=== PATIENT | female | born 1960 | race Caucasian/White ===

== ENCOUNTER 2016-05-08 13:24 | Emergency (ER) | payer OTHER ==
[~2016-05-08] VITALS: Ht 154.9 cm; Wt 79.7 kg
[~2016-05-08 13:24] MED LIST: BSP/10 PO; CETI10TA10 PO; CLTP PO; FERR1TAB61 PO; FLUO20CA35 PO; HYDR1CAP85 PO; MULT-506 PO; OMEP40CA41 PO; OXYC-609 PO; POTA10CA28 PO; TRAZ50TA35 PO
[2016-05-08 13:28] VITALS: TEMP 37; Ht 154.9 cm; Wt 79.7 kg
[2016-05-08] MEDS ORDERED: ASPIRIN 81 MG CHEW PO STA (13:42)
[2016-05-08] MEDS ORDERED: NITROGLYCERIN 0.4 MG SL PER TAB CHARGE SL STA (13:42)
[2016-05-08 13:59] VITALS: O2SAT 95
[2016-05-08 14:10] LABS: BASO % 0.2 %; BASO ABS # 0.01 K/uL (0-0.2); COMPLETE YES; HEMATOCRIT 38.4 % (37-47); IG% 0.2 %; LYMPH % 38.2 %; LYMPH ABS # 2.14 K/uL (1.2-3.4); MEAN CELL VOLUME 93.2 fL (80-100); MEAN CORPUSCULAR HEMOGLOBIN 31.3 pg (25-34); MEAN CORPUSCULAR HGB CONC 33.6 g/dl (32-36); MEAN PLATELET VOLUME 9.4 fL (7.4-10.4); MONO % 6.8 %; NEUT % 51.6 %; PLATELET COUNT 244 K/uL (130-400); RED BLOOD COUNT 4.12 M/uL (4.2-5.4)
[2016-05-08 14:23] LABS: INR 0.9 (0.9-1.1); PROTHROMBIN TIME (PATIENT) 10.1 SECONDS (9.0-12.0)
[2016-05-08 14:30] LABS: ALT/SGPT 18 U/L (12-78); AST/SGOT 22 U/L (15-37); BLOOD UREA NITROGEN 9 mg/dl (7-18); BUN/CREATININE RATIO 7.2 (10-20); CALCIUM 8.4 mg/dl (8.5-10.1); CARBON DIOXIDE 24 mmol/L (21-32); CHLORIDE 107 mmol/L (98-107); GLUCOSE 79 mg/dl (70-99); SODIUM 141 mmol/L (136-145)
--- NOTE | 2016-05-08 14:30 | DIAGNOSTIC IMAGING REPORT ---
SINGLE VIEW CHEST CLINICAL HISTORY: Fever. Sepsis. FINDINGS: An AP, portable, upright chest radiograph is compared to study dated 08/15/2011. The examination is degraded by portable technique and patient rotation. The cardiomediastinal silhouette is unremarkable. The lungs and pleural spaces are clear. No pneumothorax is seen. The skeletal structures are osteopenic. The bony thorax is grossly intact. IMPRESSION: No active disease in the chest. Electronically signed by: Eduardo Cary M.D. 05/08/2016 2:29 PM Dictated Date/Time: 05/08/2016 2:28 PM
[2016-05-08 14:41] LABS: ALKALINE PHOSPHATASE 67 U/L (45-117); CKMB/CK RATIO 1.2 (0-3.0)
[2016-05-08] MEDS ORDERED: TRAZ1TAB52 PO (14:43)
[2016-05-08] MEDS ORDERED: CALC-354 PO (14:43)
[2016-05-08] MEDS ORDERED: CYAN10005 PO (14:43)
[2016-05-08] MEDS ORDERED: GABA-113 PO (14:43)
[2016-05-08] MEDS ORDERED: DVN/160 PO (14:43)
[2016-05-08] MEDS ORDERED: FERR28TA2 PO (14:43)
--- NOTE | 2016-05-08 14:55 | EMERGENCY ROOM VISIT NOTE ---
History Report prepared by aVsu: Fartun Mcbride Under the Supervision of: Dr. David Simons D.O. First contact with patient: 13:38 Chief Complaint: CHEST PAIN Stated Complaint: CHEST PAIN History of Present Illness The patient is a 56 year old female who presents to the Emergency Room with complaints of intermittent chest pains for the past couple of weeks. Typically her pain lasts for about 15 minutes and then resolves. She states that today her pain started while she was folding laundry. For the past 2 hours her pain has been constant and worse than ever before. She describes her pain as a pressure in her chest and rates it as a 4/10 in severity. It does not radiate anywhere. The patient is also experiencing dizziness and lightheadedness. She has anxiety and states that lately her anxiety has been worse than normal. The patient denies abdominal pain, fever, chills, cough, and any recent illness. She also denies any previous cardiac issues. Source of History: patient Onset: a couple of weeks ago Position: chest Symptom Intensity: 4/10 Quality: pressure Timing: worsening Modifying Factors (Worsening): exertion (folding laundry) Associated Symptoms: No abdominal pain, No chills, No fevers Note: Pt reports dizziness and lightheadedness. She has been feeling more anxious lately. Denies recent illness or previous cardiac issues. Review of Systems See HPI for pertinent positives & negatives. A total of 10 systems reviewed and were otherwise negative. Past Medical & Surgical Medical Problems: (1) Asthma Surgical Problems: (1) H/O breast surgery (2) H/O gastric bypass (3) H/O: hysterectomy (4) Previous back surgery Family History Cancer Diabetes mellitus FH: migraine headache Heart disease Hypertension Social History Smoking Status: Former Smoker Alcohol Use: occasionally Drug Use: none Marital Status: in relationship Housing Status: lives with family Occupation Status: employed Current/Historical Medications Scheduled Buspirone HCl (Buspirone HCl), 10 MG PO BID Calcium Carbonate-Cholecalcife (Caltrate 600+D), 1 TAB PO DAILY Cyanocobalamin (Vitamin B-12), 1,500 MCG PO DAILY Ferrous Sulfate (Iron), 28 MG PO DAILY Fluoxetine (Prozac), 20 MG PO BID Gabapentin (Neurontin), 300 MG PO TID Multivitamin (Multivitamin), 1 TAB PO DAILY Omeprazole (Prilosec), 40 MCG PO DAILY Potassium Chloride (Micro-K Ext Rel), 10 MEQ PO DAILY Trazodone Hcl (Desyrel), 150 MG PO HS Valsartan (Diovan), 160 MG PO DAILY Scheduled PRN Hydroxyzine Pamoate (Vistaril), 25 MG PO DAILY PRN for Anxiety Oxycodone HCl (Oxycodone HCl), 5 MG PO UD PRN for Pain Allergies Coded Allergies: Penicillins (Verified Allergy, Unknown, HAS HAD KEFLEX W/O PROBLEM, 05/08/16 ) Sulfa Drugs (Verified Allergy, Unknown, 05/08/16) Uncoded Nonscreenable Allergen (Unverified Allergy, Unknown, DERMABOND- RASH, 05/08/16) Physical Exam Vital Signs Date Time Temp Pulse Resp B/P Pulse Ox O2 Delivery O2 Flow Rate FiO2 05/08/16 15:17 74 18 126/95 98 05/08/16 14:18 81 118/91 92 Room Air 05/08/16 14:05 94 05/08/16 14:01 97 Room Air 05/08/16 13:59 95 Room Air 05/08/16 13:28 37.0 81 18 146/88 96 Room Air Physical Exam CONSTITUTIONAL/VITAL SIGNS: Reviewed / noted above. GENERAL: Non-toxic in appearance. INTEGUMENTARY: Warm, dry, and [place]. HEAD: Normocephalic. EYES: without scleral icterus or trauma. ENT/OROPHARYNX: clear and moist. LYMPHADENOPATHY/NECK: Is supple without lymphadenopathy or meningismus. RESPIRATORY: Lungs clear and equal. CARDIOVASCULAR: Regular rate and rhythm. GI/ABDOMEN: Soft and nontender. No organomegaly or pulsatile mass. No rebound or guarding. Normal bowel sounds. EXTREMITIES: Warm and well perfused. BACK: No CVA tenderness. NEUROLOGICAL: Intact without focal deficits. PSYCHIATRIC: normal affect. MUSCULOSKELETAL: Normally developed with good muscle tone. Medical Decision & Procedures ER Provider Diagnostic Interpretation: Radiology results as stated below per my review and radiologist interpretation: SINGLE VIEW CHEST CLINICAL HISTORY: Fever. Sepsis. FINDINGS: An AP, portable, upright chest radiograph is compared to study dated 08/15/2011. The examination is degraded by portable technique and patient rotation. The cardiomediastinal silhouette is unremarkable. The lungs and pleural spaces are clear. No pneumothorax is seen. The skeletal structures are osteopenic. The bony thorax is grossly intact. IMPRESSION: No active disease in the chest. Electronically signed by: Eduardo Cary M.D. 05/08/2016 2:29 PM Dictated Date/Time: 05/08/2016 2:28 PM Laboratory Results 05/08/16 13:49 Red Blood Count 4.12, Mean Corpuscular Volume 93.2, Mean Corpuscular Hemoglobin 31.3, Mean Corpuscular Hemoglobin Concent 33.6, Mean Platelet Volume 9.4, Neutrophils (%) (Auto) 51.6, Lymphocytes (%) (Auto) 38.2, Monocytes (%) (Auto) 6.8, Eosinophils (%) (Auto) 3.0, Basophils (%) (Auto) 0.2, Neutrophils # (Auto) 2.89, Lymphocytes # (Auto) 2.14, Monocytes # (Auto) 0.38, Eosinophils # (Auto) 0.17, Basophils # (Auto) 0.01 05/08/16 13:49 Test 05/08/16 13:49 White Blood Count 5.60 K/uL (4.8-10.8) Red Blood Count 4.12 M/uL (4.2-5.4) Hemoglobin 12.9 g/dL (12.0-16.0) Hematocrit 38.4 % (37-47) Mean Corpuscular Volume 93.2 fL (80-100) Mean Corpuscular Hemoglobin 31.3 pg (25-34) Mean Corpuscular Hemoglobin Concent 33.6 g/dl (32-36) Platelet Count 244 K/uL (130-400) Mean Platelet Volume 9.4 fL (7.4-10.4) Neutrophils (%) (Auto) 51.6 % Lymphocytes (%) (Auto) 38.2 % Monocytes (%) (Auto) 6.8 % Eosinophils (%) (Auto) 3.0 % Basophils (%) (Auto) 0.2 % Neutrophils # (Auto) 2.89 K/uL (1.4-6.5) Lymphocytes # (Auto) 2.14 K/uL (1.2-3.4) Monocytes # (Auto) 0.38 K/uL (0.11-0.59) Eosinophils # (Auto) 0.17 K/uL (0-0.5) Basophils # (Auto) 0.01 K/uL (0-0.2) RDW Standard Deviation 48.8 fL (36.4-46.3) RDW Coefficient of Variation 14.4 % (11.5-14.5) Immature Granulocyte % (Auto) 0.2 % Immature Granulocyte # (Auto) 0.01 K/uL (0.00-0.02) Prothrombin Time 10.1 SECONDS (9.0-12.0) Prothromb Time International Ratio 0.9 (0.9-1.1) Activated Partial Thromboplast Time 26.8 SECONDS (21.0-31.0) Partial Thromboplastin Ratio 1.0 Anion Gap 10.0 mmol/L (3-11) Est Creatinine Clear Calc Drug Dose 50.6 ml/min Estimated GFR () 58.9 Estimated GFR (Non- 50.8 BUN/Creatinine Ratio 7.2 (10-20) Calcium Level 8.4 mg/dl (8.5-10.1) Total Bilirubin 0.3 mg/dl (0.2-1) Direct Bilirubin < 0.1 mg/dl (0-0.2) Aspartate Amino Transf (AST/SGOT) 22 U/L (15-37) Alanine Aminotransferase (ALT/SGPT) 18 U/L (12-78) Alkaline Phosphatase 67 U/L (45-117) Total Creatine Kinase 89 U/L (26-192) Creatine Kinase MB 1.1 ng/ml (0.5-3.6) Creatine Kinase MB Ratio 1.2 (0-3.0) Troponin I < 0.015 ng/ml (0-0.045) Total Protein 7.2 gm/dl (6.4-8.2) Albumin 3.6 gm/dl (3.4-5.0) Lipase 318 U/L (73-393) Thyroid Stimulating Hormone (TSH) 1.420 uIu/ml (0.300-4.500) Laboratory results as stated above per my review. Medications Administered Medications (Trade) Dose Ordered Sig/Blaze Route Start Time Stop Time Status Last Admin Dose Admin Aspirin (Aspirin Chew) 324 mg NOW STAT PO 05/08/16 13:42 05/08/16 13:43 DC 05/08/16 13:59 324 MG Nitroglycerin (Nitrostat Tab) 0.4 mg 1342 STAT SL 05/08/16 13:42 05/08/16 13:43 DC 05/08/16 14:00 0.4 MG ECG Indication: chest pain Rate (beats per minute): 78 Rhythm: normal sinus Findings: no acute ischemic change, no ectopy ED Course 1339: Previous medical records were reviewed. The patient was evaluated in room A9B. A complete history and physical examination was performed. 1342: Nitroglycerin 0.4 mg SL, Aspirin 324 mg PO 1457: I reassessed the patient at this time. She is feeling better and resting comfortably. I discussed the results and treatment plan with the patient. I answered all pertaining questions that she had. She expressed understanding and verbalized agreement. The patient will be discharged home. Medical Decision The differential was considered includes acute myocardial infarction, acute coronary syndrome, myocarditis, pericarditis, pericardial effusions /tamponade, esophageal perforation, thoracic aortic dissection, pulmonary embolism, pneumonia, pneumothorax, pancreatitis, shingles, acute cholecystitis, perforated abdominal viscus. This is a 56-year-old female who presents to the ED with a chief complaint of chest pain off and on for the past couple of weeks. She also reports some associated lightheadedness. She describes the pain in her chest as a tightness. It does not radiate. She denies associated shortness of breath, fevers or recent illness. No exertional symptoms. The patient does report some increase in her baseline anxiety recently as well. Her vital signs are normal. An EKG shows a normal sinus rhythm at a rate of 78 without ischemic changes. Her physical exam was normal. CBC and complete metabolic panel were normal. Troponin is negative. TSH is normal. Chest x-ray was negative for acute disease. The patient was told results the test per she was treated with a nitroglycerin sublingual which worsened her pain. She was given aspirin by mouth as well. The patient has hypertension and is on medication for this. She denies any early family history of heart disease. She has not had any cardiac issues herself. She does not have high cholesterol. She is not a smoker. She has had the symptoms for at least 3-4 hours today. There were no EKG changes and her troponin is negative. She does report anxiety. I feel her symptoms are more likely related to this rather than a cardiac or pulmonary etiology for her pain. The patient was felt to be stable for discharge and outpatient follow-up. She did state on final evaluation that her pain was now gone. Impression Primary Impression: Substernal precordial chest pain Scribe Attestation The scribe's documentation has been prepared under my direction and personally reviewed by me in its entirety. I confirm that the note above accurately reflects all work, treatment, procedures, and medical decision making performed by me. Departure Information Dispostion Home / Self-Care Referrals Tj Campo III, M.D. (PCP) Forms HOME CARE DOCUMENTATION FORM, IMPORTANT VISIT INFORMATION Patient Instructions Chest Pain - [facility], [facility] Additional Instructions Follow-up with your doctor for further care and evaluation in 1-2 days. Return to the emergency department for worsening or new symptoms or any concerns. You have been examined and treated today on an emergency basis only. This is not a substitute for, or an effort to provide, complete comprehensive medical care. It is impossible to recognize and treat all injuries or illnesses in a single emergency department visit. It is therefore important that you follow up closely with your doctor. Call as soon as possible for an appointment.
[2016-05-08 15:17] VITALS: BP 126/95; PULSE 74; O2SAT 98
[2016-11-14] MEDS ORDERED: VALS40TA2 PO (15:41)
[2016-11-14] MEDS ORDERED: LPT40 PO (15:41)
[2016-11-14] MEDS ORDERED: ASPEC81 PO (15:41)
== END 2016-05-08 15:18 | disposition home or self-care (01) ==
LOC: C.EDB 13:25 → C.EDA 15:18
DX: R07.2 Precordial pain (principal); J45.909 Unspecified asthma, uncomplicated; Z83.3 Family history of diabetes mellitus; Z82.49 Family history of ischemic heart disease and other diseases of the circulatory system

== ENCOUNTER 2016-06-03 21:39 | Emergency (ER) | payer OTHER ==
[~2016-06-03] VITALS: Ht 154.9 cm; Wt 80.5 kg
[~2016-06-03 21:39] MED LIST changes: +CALC-354 PO; -CETI10TA10 PO; -CLTP PO; +CYAN10005 PO; +DVN/160 PO; -FERR1TAB61 PO; +FERR28TA2 PO; +GABA-113 PO; +TRAZ1TAB52 PO; -TRAZ50TA35 PO
[2016-06-03 21:43] VITALS: TEMP 36.6; Ht 154.9 cm; Wt 80.5 kg
[2016-06-03] MEDS ORDERED: MoRPHine SULFATE 4 MG/ML 1 ML CARP\\VIAL IM STA (22:04)
[2016-06-03] MEDS ORDERED: KETOROLAC TROMETHAMINE 60 MG/2 ML VIAL IM STA (22:04)
--- NOTE | 2016-06-03 22:25 | EMERGENCY ROOM VISIT NOTE ---
ED Visit Note First contact with patient: 21:50 I have personally seen and evaluated the patient with the physician regional administrative assistant. I agree with the diagnostic/management decisions and have personally been involved in these decisions and agree with the diagnosis.
--- NOTE | 2016-06-03 22:43 | DIAGNOSTIC IMAGING REPORT ---
THORACIC SPINE 3 VIEWS ROUTINE CLINICAL HISTORY: mid back pain COMPARISON STUDY: No previous studies for comparison. FINDINGS: There is an air-filled esophagus. The paraspinal line is not displaced. There are no acute fractures. No destructive lesions are evident. There are mild multilevel degenerative changes. IMPRESSION: 1. No acute fractures 2. Mild multilevel degenerative change 3. Air-filled esophagus Electronically signed by: Bart Cervantes M.D. 06/03/2016 10:42 PM Dictated Date/Time: 06/03/2016 10:41 PM
--- NOTE | 2016-06-03 23:02 | EMERGENCY ROOM VISIT NOTE ---
ED Visit Note First contact with patient: 21:50 CHIEF COMPLAINT: Back pain HISTORY OF PRESENT ILLNESS: This 56-year-old female patient presents to the emergency department ambulatory complaining of pain in the mid back. The patient states that after she had cleaned out her car today, she developed a pain in the middle of her back. She states the pain has been progressively worsening and is worse with movement. There is no radiation of the pain. She denies any numbness or weakness in her upper or lower extremities. She rates the discomfort a 9/10. She took oxycodone at home without relief of the pain. The patient does state she has a history of low back problems and has had surgery at [facility] in [place]. She also reports recent problems with arthritis in her neck. She denies any chest pain, shortness of breath, abdominal pain, nausea or vomiting. REVIEW OF SYSTEMS: A review of systems was performed with positives and pertinent negatives listed in the history of present illness. All other systems were reviewed and are negative. ALLERGIES: Penicillins, sulfa drugs, Dermabond MEDICATIONS: See med list PMH: Hypertension, gastric bypass, hysterectomy, fibromyalgia SOCIAL HISTORY: Patient lives locally with her . She is a smoker and admits to occasional alcohol use. PHYSICAL EXAM: VITALS: Vitals are noted on the nurse's note and reviewed by myself. Vital signs stable. GENERAL: This is a 56-year-old female, in no acute distress, nondiaphoretic, well-developed well-nourished. SKIN: The skin was without rashes, erythema, edema, or bruising. Capillary refill less than 2 seconds. NECK: Supple without nuchal rigidity. No cervical spine tenderness. No paraspinous muscle tenderness. HEART: Regular rate and rhythm without murmurs gallops or rubs. LUNGS: Clear to auscultation bilaterally without wheezes, rales or rhonchi. ABDOMEN: Positive bowel sounds x 4. Soft, nontender, without masses or organomegaly. Hendricks sign negative. MUSCULOSKELETAL: No muscle atrophy, erythema, or edema noted of the back. There is tenderness to palpation over bilateral thoracic paraspinous muscles. No tenderness over the spinous processes. NEURO: Patient was alert and oriented to person place and time. Normal sensation to light and sharp touch. Deep tendon reflexes 2+ in the upper extremities. Radial pulse 2+ bilaterally. Strength 5/5 and equal in the bilateral upper extremities. RADIOGRAPHIC FINDINGS: THORACIC SPINE 3 VIEWS ROUTINE CLINICAL HISTORY: mid back pain COMPARISON STUDY: No previous studies for comparison. FINDINGS: There is an air-filled esophagus. The paraspinal line is not displaced. There are no acute fractures. No destructive lesions are evident. There are mild multilevel degenerative changes. IMPRESSION: 1. No acute fractures 2. Mild multilevel degenerative change 3. Air-filled esophagus EMERGENCY DEPARTMENT COURSE: The patient was evaluated as above. She was treated with 60 mg Toradol IM and 4 mg morphine IM. X-rays were performed and show degenerative changes but no acute findings. The patient was instructed to follow-up with her primary care provider tomorrow for further evaluation of his back pain. She will return for any new/concerning symptoms. She verbalized understanding of my assessment and treatment plan and was discharged home in good condition. The patient was independently evaluated by Dr. Simons, ED attending physician, who agreed with my assessment and treatment plan. DIAGNOSIS: Thoracic back pain Problem List Medical Problems: (1) Asthma Status: Chronic Surgical Problems: (1) H/O breast surgery Status: Resolved (2) H/O gastric bypass Status: Resolved (3) H/O: hysterectomy Status: Resolved (4) Previous back surgery Status: Resolved Current/Historical Medications Scheduled Buspirone HCl (Buspirone HCl), 10 MG PO BID Calcium Carbonate-Cholecalcife (Caltrate 600+D), 1 TAB PO DAILY Cyanocobalamin (Vitamin B-12), 1,500 MCG PO DAILY Ferrous Sulfate (Iron), 28 MG PO DAILY Fluoxetine (Prozac), 20 MG PO BID Gabapentin (Neurontin), 300 MG PO TID Multivitamin (Multivitamin), 1 TAB PO DAILY Omeprazole (Prilosec), 40 MCG PO DAILY Potassium Chloride (Micro-K Ext Rel), 10 MEQ PO DAILY Trazodone Hcl (Desyrel), 150 MG PO HS Valsartan (Diovan), 160 MG PO DAILY Scheduled PRN Hydroxyzine Pamoate (Vistaril), 25 MG PO DAILY PRN for Anxiety Oxycodone HCl (Oxycodone HCl), 5 MG PO UD PRN for Pain Allergies Coded Allergies: Penicillins (Verified Allergy, Unknown, HAS HAD KEFLEX W/O PROBLEM, 06/03/16 ) Sulfa Drugs (Verified Allergy, Unknown, 06/03/16) Uncoded Nonscreenable Allergen (Unverified Allergy, Unknown, DERMABOND- RASH, 06/03/16) Vital Signs Date Time Temp Pulse Resp B/P Pulse Ox O2 Delivery O2 Flow Rate FiO2 06/03/16 23:06 82 18 123/77 93 Room Air 06/03/16 21:43 36.6 96 20 99/74 95 Room Air Medications Administered Medications (Trade) Dose Ordered Sig/Blaze Route Start Time Stop Time Status Last Admin Dose Admin Ketorolac Tromethamine (Toradol Inj) 60 mg NOW STAT IM 06/03/16 22:04 06/03/16 22:07 DC 06/03/16 22:11 60 MG Morphine Sulfate (MoRPHine SULFATE INJ) 4 mg NOW STAT IM 06/03/16 22:04 06/03/16 22:07 DC 06/03/16 22:12 4 MG Departure Information Dispostion Home / Self-Care Condition GOOD Referrals Tj Campo III, M.D. (PCP) Patient Instructions My [facility] Additional Instructions For pain control, you can use the following [id number] medicines (if >12 yo): - Regular strength (325mg/tab) Tylenol (acetaminophen) 2 tabs every 4-6 hours as needed. Do not exceed 12 tablets in a 24 hour period. Avoid taking more than 4 grams (4000 mg) of Tylenol per day. This includes any other sources of acetaminophen you may take on a regular basis. - Regular strength (200 mg/tab) Advil (ibuprofen) 1-2 tabs every 4-6 hours as needed. Do not exceed a dose of 3200 mg per day. Continue oxycodone at home as needed for pain. Call Dr. Campo tomorrow to schedule follow-up. Return for any new/concerning symptoms.
[2016-06-03 23:06] VITALS: BP 123/77; PULSE 82; O2SAT 93
[2016-11-14] MEDS ORDERED: LPT40 PO (15:41)
[2016-11-14] MEDS ORDERED: VALS40TA2 PO (15:41)
[2016-11-14] MEDS ORDERED: ASPEC81 PO (15:41)
== END 2016-06-03 23:07 | disposition home or self-care (01) ==
LOC: C.EDB 21:40 → C.EDD 23:07
DX: M54.6 Pain in thoracic spine (principal); I10 Essential (primary) hypertension; J45.909 Unspecified asthma, uncomplicated; F17.200 Nicotine dependence, unspecified, uncomplicated; Z98.84 Bariatric surgery status; Z90.710 Acquired absence of both cervix and uterus; Z79.899 Other long term (current) drug therapy; Z88.0 Allergy status to penicillin; Z88.2 Allergy status to sulfonamides; Z91.09 Other allergy status, other than to drugs and biological substances

== ENCOUNTER → 2016-07-17 | Outpatient (CLI) | payer OTHER ==
[~2016-07-17] MED LIST changes: +ASPEC81 PO; +LPT40 PO; +VALS40TA2 PO
--- NOTE | 2016-07-17 12:14 | DIAGNOSTIC IMAGING REPORT ---
VIDEO SWALLOW STUDY CLINICAL HISTORY: Dysphagia. COMPARISON STUDY: No priors. Fluoroscopy time: 1.7 minutes. FINDINGS: Fluoroscopic guidance was provided to the Department of Speech Pathology in performing a video swallow study. The patient consumed barium-impregnated pudding, nectar-thick liquid, cracker with paste, and thin barium while the swallowing mechanism was observed in real-time. No penetration or aspiration was seen with any of the sampled textures. Mild esophageal dysmotility is suggested. IMPRESSION: 1. No penetration or aspiration was seen with any of the sampled textures. 2. Mild esophageal dysmotility. 3. See dedicated speech pathology report for detailed findings and recommendations. Dictated: 07/17/2016 11:58 AM Transcribed: 07/17/2016 12:13 PM [email or web address] Electronically signed by: Eduardo Cary M.D. 07/17/2016 12:14 PM Dictated Date/Time: 07/17/2016 11:58 AM
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
== END | disposition home or self-care (01) ==
LOC: C.RAD 10:56
PROVIDERS: ATTEND Family Medicine
DX: R13.10 Dysphagia, unspecified (principal)

== ENCOUNTER 2016-11-12 15:11 | Inpatient (IN) | payer OTHER ==
[~2016-11-12] VITALS: Ht 154.9 cm; Wt 79.2 kg
[~2016-11-12 15:11] MED LIST changes: -ASPEC81 PO; -LPT40 PO; -VALS40TA2 PO
[2016-11-12] MEDS ORDERED: SODIUM CHLORIDE 0.9% 1000ML 1,000 ML IV STA (15:30)
--- NOTE | 2016-11-12 15:38 | EMERGENCY ROOM VISIT NOTE ---
History Report prepared by Vasu: Fanny Julio Under the Supervision of: Dr. Eduardo Martinez M.D. First contact with patient: 15:24 Chief Complaint: HYPOTENSION Stated Complaint: LOW BLOOD PRESSURE, STUMBLING, TIRED History of Present Illness The patient is a 56 year old female who presents to the Emergency Room with complaints of persistent hypotension for the past 6 hours. She admits to feeling "confused and ill" today and reports she felt like she was "stumbling around and walking in to things". She called her PCP's office, and they recommended she come in. She saw Dr. Mckee at [facility] and states "they could not hear my BP" and her pulse was "faint" in the office. She denies any recent fevers, nausea, vomiting or diarrhea. She has intermittent difficulty urinating, but states this is chronic for her. She has experienced no recent hematuria or dysuria. She denies any recent changes to medications. She has been eating and drinking normally but admits she feels extremely fatigued currently. The patient is not diabetic but states she checked her BSG before going to her doctor's and it was normal. She denies any chest pain or shortness of breath. There has been no swelling in her legs. 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 A total of 10 systems reviewed and were otherwise negative. Past Medical & Surgical Medical Problems: (1) Asthma Surgical Problems: (1) H/O breast surgery (2) H/O gastric bypass (3) H/O: hysterectomy (4) Previous back surgery Family History Cancer Diabetes mellitus FH: migraine headache Heart disease Hypertension Social History Smoking Status: Former Smoker Alcohol Use: occasionally Drug Use: none Marital Status: in relationship Housing Status: lives with family Occupation Status: employed Current/Historical Medications Scheduled Buspirone HCl (Buspirone HCl), 10 MG PO BID Calcium Carbonate-Cholecalcife (Caltrate 600+D), 1 TAB PO DAILY Cyanocobalamin (Vitamin B-12), 1,500 MCG PO DAILY Ferrous Sulfate (Iron), 28 MG PO DAILY Fluoxetine (Prozac), 20 MG PO BID Gabapentin (Neurontin), 600 MG PO BID Multivitamin (Multivitamin), 1 TAB PO DAILY Omeprazole (Prilosec), 40 MCG PO DAILY Potassium Chloride (Micro-K Ext Rel), 10 MEQ PO DAILY Trazodone Hcl (Desyrel), 150 MG PO HS Valsartan (Diovan), 80 MG PO QAM Scheduled PRN Hydroxyzine Pamoate (Vistaril), 25 MG PO DAILY PRN for Anxiety Oxycodone HCl (Oxycodone HCl), 5 MG PO UD PRN for Pain Allergies Coded Allergies: Penicillins (Verified Allergy, Unknown, HAS HAD KEFLEX W/O PROBLEM, ) Sulfa Drugs (Verified Allergy, Unknown, 11/12/16) Uncoded Nonscreenable Allergen (Unverified Allergy, Unknown, DERMABOND- RASH, 11/12/16) Physical Exam Vital Signs Date Time Temp Pulse Resp B/P (MAP) Pulse Ox O2 Delivery O2 Flow Rate FiO2 11/12/16 16:41 76 20 11/12/16 16:18 75 11/12/16 16:17 147/102 11/12/16 16:16 144/103 11/12/16 16:14 72 131/91 94 Room Air 75 144/103 75 147/102 11/12/16 15:39 94 Room Air 11/12/16 15:19 36.7 74 20 132/88 94 Room Air Physical Exam GENERAL: Patient is in no acute distress. HEENT: No acute trauma, normocephalic atraumatic, mucous membranes moist, no nasal congestion, no scleral icterus. NECK: No stridor, no adenopathy, no meningismus, trachea is midline. LUNGS: Clear to auscultation bilaterally, no wheeze, no rhonchi, breath sounds equal. HEART: Without murmurs gallops or rubs, regular rate and rhythm. ABDOMEN: Soft, nontender, bowel sounds positive, no hernias, no peritonitis. EXTREMITIES: No cyanosis or edema, full range of motion of all the joints without pain or difficulty, no signs for acute trauma. NEUROLOGIC: Oriented x 3, no acute motor or sensory deficits, no focal weakness. SKIN: Pale. No rash, no jaundice, no diaphoresis. Medical Decision & Procedures ER Provider Diagnostic Interpretation: Radiology results as stated below per my review and radiologist interpretation: CHEST ONE VIEW PORTABLE CLINICAL HISTORY: EVALUATE ALTERED MENTAL STATUS/WEAKNESS dyspnea COMPARISON STUDY: No previous studies for comparison. FINDINGS: The bones soft tissues and hemidiaphragms are normal. The cardiomediastinal silhouette is normal. The lungs are clear. The pulmonary vasculature is normal. IMPRESSION: Negative chest. The above report was generated using voice recognition software. It may contain grammatical, syntax or spelling errors. Electronically signed by: Phi Nova M.D. 11/12/2016 3:55 PM HEAD WITHOUT CONTRAST (CT) CT DOSE: 537.48 mGy.cm HISTORY: Mental status change. Hypotension. confusion TECHNIQUE: Multiaxial CT images of the head were performed without the use of intravenous contrast. A dose lowering technique was utilized adhering to the principles of ALARA. Comparison: 09/30/2013 Findings: The paranasal sinuses and mastoid air cells are clear. Calvarium is intact. Linear low-density region posterior right parietal lobe transaxial image 19. No evidence for hemorrhage. This potentially represents a small subacute infarct. Frontal atrophy. Chronic small vessel change. Ventricular system is midline. Impression: 1. Small subacute right cortical parietal infarct. 2. No evidence for acute intracranial hemorrhage. 3. Mild atrophy and age-related change The above report was generated using voice recognition software. It may contain grammatical, syntax or spelling errors. Electronically signed by: Phi Nova M.D. 11/12/2016 4:59 PM Laboratory Results 11/12/16 15:50 Red Blood Count 4.14, Mean Corpuscular Volume 95.4, Mean Corpuscular Hemoglobin 31.2, Mean Corpuscular Hemoglobin Concent 32.7, Mean Platelet Volume 9.3, Neutrophils (%) (Auto) 70.1, Lymphocytes (%) (Auto) 24.7, Monocytes (%) (Auto) 3.6, Eosinophils (%) (Auto) 1.1, Basophils (%) (Auto) 0.2, Neutrophils # (Auto) 6.28, Lymphocytes # (Auto) 2.22, Monocytes # (Auto) 0.32, Eosinophils # (Auto) 0.10, Basophils # (Auto) 0.02 11/12/16 15:50 Test 11/12/16 15:30 11/12/16 15:50 Urine Color YELLOW Urine Appearance CLEAR (CLEAR) Urine pH 6.0 (4.5-7.5) Urine Specific [place] 1.016 (1.000-1.030) Urine Protein NEG (NEG) Urine Glucose (UA) NEG (NEG) Urine Ketones NEG (NEG) Urine Occult Blood NEG (NEG) Urine Nitrite NEG (NEG) Urine Bilirubin NEG (NEG) Urine Urobilinogen NEG (NEG) Urine Leukocyte Esterase SMALL (NEG) Urine WBC (Auto) 1-5 /hpf (0-5) Urine RBC (Auto) 5-10 /hpf (0-4) Urine Hyaline Casts (Auto) 1-5 /lpf (0-5) Urine Epithelial Cells (Auto) 20-30 /lpf (0-5) Urine Bacteria (Auto) NEG (NEG) White Blood Count 8.97 K/uL (4.8-10.8) Red Blood Count 4.14 M/uL (4.2-5.4) Hemoglobin 12.9 g/dL (12.0-16.0) Hematocrit 39.5 % (37-47) Mean Corpuscular Volume 95.4 fL (80-100) Mean Corpuscular Hemoglobin 31.2 pg (25-34) Mean Corpuscular Hemoglobin Concent 32.7 g/dl (32-36) Platelet Count 221 K/uL (130-400) Mean Platelet Volume 9.3 fL (7.4-10.4) Neutrophils (%) (Auto) 70.1 % Lymphocytes (%) (Auto) 24.7 % Monocytes (%) (Auto) 3.6 % Eosinophils (%) (Auto) 1.1 % Basophils (%) (Auto) 0.2 % Neutrophils # (Auto) 6.28 K/uL (1.4-6.5) Lymphocytes # (Auto) 2.22 K/uL (1.2-3.4) Monocytes # (Auto) 0.32 K/uL (0.11-0.59) Eosinophils # (Auto) 0.10 K/uL (0-0.5) Basophils # (Auto) 0.02 K/uL (0-0.2) RDW Standard Deviation 48.4 fL (36.4-46.3) RDW Coefficient of Variation 14.0 % (11.5-14.5) Immature Granulocyte % (Auto) 0.3 % Immature Granulocyte # (Auto) 0.03 K/uL (0.00-0.02) Anion Gap 5.0 mmol/L (3-11) Est Creatinine Clear Calc Drug Dose 42.9 ml/min Estimated GFR () 48.9 Estimated GFR (Non- 42.2 BUN/Creatinine Ratio 6.9 (10-20) Calcium Level 8.9 mg/dl (8.5-10.1) Magnesium Level 2.3 mg/dl (1.8-2.4) Total Bilirubin 0.3 mg/dl (0.2-1) Aspartate Amino Transf (AST/SGOT) 44 U/L (15-37) Alanine Aminotransferase (ALT/SGPT) 40 U/L (12-78) Alkaline Phosphatase 76 U/L (45-117) Troponin I < 0.015 ng/ml (0-0.045) Total Protein 7.5 gm/dl (6.4-8.2) Albumin 3.7 gm/dl (3.4-5.0) Globulin 3.8 gm/dl (2.5-4.0) Albumin/Globulin Ratio 1.0 (0.9-2) Thyroid Stimulating Hormone (TSH) 1.360 uIu/ml (0.300-4.500) Laboratory results reviewed by me. Medications Administered Medications (Trade) Dose Ordered Sig/Blaze Route Start Time Stop Time Status Last Admin Dose Admin Sodium Chloride 1,000 ml @ 999 mls/hr Q1H1M STAT IV 11/12/16 15:30 11/12/16 16:30 DC 11/12/16 16:14 999 MLS/HR Aspirin (Aspirin Chew) 324 mg NOW STAT PO 11/12/16 17:31 11/12/16 17:32 DC 11/12/16 18:05 324 MG ECG Indication: weakness Rate (beats per minute): 71 Rhythm: normal sinus Findings: no acute ischemic change, no ectopy ED Course 1529: The patient was evaluated in room A11. A complete history and physical exam was performed. 1530: NSS 1000 ml @ 999 mls/hr IV. 1626: Orthostatic vital signs are negative. 1731: Aspirin 324 mg PO. 1732: I reevaluated the patient. She is resting comfortably. I discussed her results and my recommendation she remain in the hospital for further evaluation and management and she verbalized complete understanding and agreement. 1813: I discussed the patients case Neetu Huerta PA-C, [facility] Hospitalist. The patient will be further evaluated. Medical Decision The differential diagnoses considered include electrolyte imbalance, dehydration , anemia, UTI, dysrhythmia, medication reaction and IA. There is no leukocytosis or concerning anemia. No significant electrolyte abnormality, kidney failure or hepatitis. The patient appears to be in a euthyroid state. EKG shows a normal sinus rhythm, no acute ischemia. Cardiac enzyme testing times one is not consistent with acute cardiac injury. Chest x- ray does not show pneumonia or mediastinal widening. There was no cardiomegaly. Brain CT does not show any acute bleed. A small subacute cortical infarct was thought possible. Urinalysis does not show evidence for infection. On exam, there were no focal neurologic deficits. The patient was given IV saline, because of the potential subacute stroke noted on CT, she was given oral aspirin. Given the findings on CT, admission/observation is warranted. The patient is not a candidate for TPA as the stroke is subacute-she is out of the TPA window. I did speak with case management. The patient was informed of all her findings. The on-call hospitalist was consulted. Medication Reconcilliation Current Medication List: was personally reviewed by me Blood Pressure Screening Patient's blood pressure: Elevated blood pressure Blood pressure disposition: Elevated BP felt to be situational Consults Time Called: 1731 Consulting Physician: Neetu Huerta PA-C, [facility] Hospitalist Returned Call: 1813 I discussed the patients case Neetu Huerta PA-C, [facility] Hospitalist. The patient will be further evaluated. Impression Primary Impression: Near syncope Additional Impressions: Hypotension CVA (cerebral vascular accident) Scribe Attestation The scribe's documentation has been prepared under my direction and personally reviewed by me in its entirety. I confirm that the note above accurately reflects all work, treatment, procedures, and medical decision making performed by me. Departure Information Dispostion Being Evaluated By Hospitalist Referrals Tj Campo III, M.D. (PCP) Patient Instructions My [facility] Stroke History Time Last Known Well 9 am Stroke t-PA Criteria Reviewed Does NOT meet criteria for t-PA Reason t-PA Not Given Treatment not indicated (The last known well time was approximately 9am this morning) Problem Qualifiers
--- NOTE | 2016-11-12 15:57 | DIAGNOSTIC IMAGING REPORT ---
CHEST ONE VIEW PORTABLE CLINICAL HISTORY: EVALUATE ALTERED MENTAL STATUS/WEAKNESS dyspnea COMPARISON STUDY: No previous studies for comparison. FINDINGS: The bones soft tissues and hemidiaphragms are normal. The cardiomediastinal silhouette is normal. The lungs are clear. The pulmonary vasculature is normal. IMPRESSION: Negative chest. The above report was generated using voice recognition software. It may contain grammatical, syntax or spelling errors. Electronically signed by: Phi Nova M.D. 11/12/2016 3:55 PM Dictated Date/Time: 11/12/2016 3:55 PM
[2016-11-12 16:01] LABS: URINE APPEARANCE CLEAR (CLEAR); URINE BILIRUBIN NEG (NEG); URINE COLOR YELLOW; URINE EPITHELIAL CELL AUTO 20-30 /lpf (0-5); URINE NITRITE NEG (NEG); URINE SPECIFIC GRAVITY 1.016 (1.000-1.030); UROBILINOGEN NEG (NEG); ZZUR CULT IF INDIC CLEAN CATCH NO
[2016-11-12 16:02] LABS: MANUAL MICROSCOPIC REQUIRED? NO; REVIEW REQ? NO
[2016-11-12 16:24] LABS: BASO % 0.2 %; BASO ABS # 0.02 K/uL (0-0.2); COMPLETE YES; EOS % 1.1 %; HEMATOCRIT 39.5 % (37-47); IG% 0.3 %; LYMPH % 24.7 %; LYMPH ABS # 2.22 K/uL (1.2-3.4); MEAN CELL VOLUME 95.4 fL (80-100); MEAN CORPUSCULAR HEMOGLOBIN 31.2 pg (25-34); MEAN CORPUSCULAR HGB CONC 32.7 g/dl (32-36); MEAN PLATELET VOLUME 9.3 fL (7.4-10.4); MONO % 3.6 %; NEUT % 70.1 %; PLATELET COUNT 221 K/uL (130-400); RED BLOOD COUNT 4.14 M/uL (4.2-5.4); WHITE BLOOD COUNT 8.97 K/uL (4.8-10.8)
[2016-11-12 16:44] LABS: ALT/SGPT 40 U/L (12-78); AST/SGOT 44 U/L (15-37); BLOOD UREA NITROGEN 10 mg/dl (7-18); BUN/CREATININE RATIO 6.9 (10-20); CALCIUM 8.9 mg/dl (8.5-10.1); CARBON DIOXIDE 28 mmol/L (21-32); CHLORIDE 106 mmol/L (98-107); GLUCOSE 80 mg/dl (70-99); MAGNESIUM 2.3 mg/dl (1.8-2.4); POTASSIUM 4.7 mmol/L (3.5-5.1); SODIUM 139 mmol/L (136-145)
[2016-11-12 16:54] LABS: ALKALINE PHOSPHATASE 76 U/L (45-117)
--- NOTE | 2016-11-12 17:00 | DIAGNOSTIC IMAGING REPORT ---
HEAD WITHOUT CONTRAST (CT) CT DOSE: 537.48 mGy.cm HISTORY: Mental status change. Hypotension. confusion TECHNIQUE: Multiaxial CT images of the head were performed without the use of intravenous contrast. A dose lowering technique was utilized adhering to the principles of ALARA. Comparison: 09/30/2013 Findings: The paranasal sinuses and mastoid air cells are clear. Calvarium is intact. Linear low-density region posterior right parietal lobe transaxial image 19. No evidence for hemorrhage. This potentially represents a small subacute infarct. Frontal atrophy. Chronic small vessel change. Ventricular system is midline. Impression: 1. Small subacute right cortical parietal infarct. 2. No evidence for acute intracranial hemorrhage. 3. Mild atrophy and age-related change The above report was generated using voice recognition software. It may contain grammatical, syntax or spelling errors. Electronically signed by: Phi Nova M.D. 11/12/2016 4:59 PM Dictated Date/Time: 11/12/2016 4:56 PM
[2016-11-12] MEDS ORDERED: ASPIRIN 81 MG CHEW PO STA (17:31)
[2016-11-12] MEDS ORDERED: ONDANSETRON INJ 2 MG/ML 2 ML VIAL IV PRN (19:15)
[2016-11-12] MEDS ORDERED: PHARMACIST DISCHARGE MED REC CONSULT PRN (19:15)
[2016-11-12] MEDS ORDERED: hydrOXYzine HCL 25 MG TAB PO PRN (19:30)
[2016-11-12] MEDS ORDERED: ACETAMINOPHEN 325 MG TAB PO PRN (19:30)
--- NOTE | 2016-11-12 20:26 | History and Physical ---
History & Physical Date & Time of Service: Nov 12, 2016 at 19:38 Chief Complaint: Low Blood Pressure, Stumbling, Tired Primary Care Physician: Tj Campo III, M.D. History of Present Illness This is a 56yo F with a PMH of HTN, HLD, anxiety who presents with lightheadedness and fatigue that started this morning. Patient was in her normal state of health today and took her medications at 10am. By noon, patient felt lightheaded and dizzy while cooking and needed to sit down. When she got up to use the restroom, she reports "staggering" down the rome and feeling like her thoughts were "blurred together". Associated symptoms include extreme fatigue and blurred vision. Her notes that at this time her speech was difficult to understand. Patient sat down to check blood sugar (which was normal) and BP, which was 70/55. Went into her PCP's office, where the nurse noted a faint pulse and took multiple BP readings until she got a BP of 104/76. Patient was brought to the ER by for further evaluation. Patient did not eat or drink anything prior to this episode, which is normal for her. Reports not eating until mid-afternoon most days. Has been taking all medications regularly. Currently, all symptoms during episode have resolved except for some residual fatigue and difficulty with balance when standing. Denies facial droop, difficulty speaking or swallowing, lightheadedness, visual changes, headache, CP, SOB, nausea, vomiting, weakness of any kind. Has chronic numbness in L foot from a back surgery in 2011 and also endorses intermittent difficulty with urination. Denies history of stroke, DVT/PE or heart disease. Past Medical/Surgical History Medical Problems: (1) Anxiety Status: Chronic (2) CKD (chronic kidney disease), stage III Status: Chronic (3) Degenerative disc disease, lumbar Status: Chronic (4) Depression Status: Chronic (5) Fibromyalgia Status: Chronic (6) HLD (hyperlipidemia) Status: Chronic (7) HTN (hypertension) Status: Chronic (8) MEYER (nonalcoholic steatohepatitis) Status: Chronic (9) Post gastrectomy syndrome Status: Chronic Surgical Problems: (1) H/O breast surgery Status: Resolved (2) H/O gastric bypass Status: Resolved (3) H/O: hysterectomy Status: Resolved (4) Previous back surgery Status: Resolved Family History Cancer Diabetes mellitus FH: migraine headache Heart disease Hypertension Social History Smoking Status: Former Smoker (1/2 PPD for ~20 years. Quit in July of 2016.) Alcohol Use: socially (Endorses 1-2 drinks per week. ) Drug Use: none Marital Status: in relationship Housing status: lives with family Occupational Status: employed Immunizations History of Influenza Vaccine: Unknown History of Tetanus Vaccine?: Unknown History of Pneumococcal: Unknown History of Hepatitis B Vaccine: Unknown Multi-Drug Resistant Organisms History of MDRO: No Allergies Coded Allergies: Penicillins (Verified Allergy, Unknown, HAS HAD KEFLEX W/O PROBLEM, ) Sulfa Antibiotics (Verified Allergy, Unknown, ., 11/12/16) Uncoded Nonscreenable Allergen (Unverified Allergy, Unknown, DERMABOND- RASH, 11/12/16) Home Medications Scheduled Buspirone HCl (Buspirone HCl), 10 MG PO BID Calcium Carbonate-Cholecalcife (Caltrate 600+D), 1 TAB PO DAILY Cyanocobalamin (Vitamin B-12), 1,500 MCG PO DAILY Ferrous Sulfate (Iron), 28 MG PO DAILY Fluoxetine (Prozac), 20 MG PO BID Gabapentin (Neurontin), 600 MG PO BID Multivitamin (Multivitamin), 1 TAB PO DAILY Omeprazole (Prilosec), 40 MCG PO DAILY Potassium Chloride (Micro-K Ext Rel), 10 MEQ PO DAILY Trazodone Hcl (Desyrel), 150 MG PO HS Valsartan (Diovan), 80 MG PO QAM Scheduled PRN Hydroxyzine Pamoate (Vistaril), 25 MG PO DAILY PRN for Anxiety Oxycodone HCl (Oxycodone HCl), 5 MG PO UD PRN for Pain Review of Systems Ten systems reviewed and negative except as noted in the HPI. Physical Exam Vital Signs Date Time Temp Pulse Resp B/P (MAP) Pulse Ox O2 Delivery O2 Flow Rate FiO2 11/12/16 19:01 79 20 150/95 95 Room Air 11/12/16 16:41 76 20 11/12/16 16:18 75 11/12/16 16:17 147/102 11/12/16 16:16 144/103 11/12/16 16:14 72 131/91 94 Room Air 75 144/103 75 147/102 11/12/16 15:39 94 Room Air 11/12/16 15:19 36.7 74 20 132/88 94 Room Air General Appearance: WD/WN, no apparent distress Head: normocephalic, atraumatic Eyes: normal inspection, PERRL, EOMI ENT: hearing grossly normal Neck: supple, thyroid normal, trachea midline Respiratory/Chest: chest non-tender, lungs clear, normal breath sounds, no respiratory distress, no accessory muscle use Cardiovascular: regular rate, rhythm, no murmur, normal peripheral pulses Abdomen/GI: normal bowel sounds, non tender, soft, no organomegaly Back: normal inspection Extremities/Musculoskelatal: normal inspection, no calf tenderness, normal capillary refill, no pedal edema Neurologic/Psych: film sound coordinator II-XII nml as tested, no motor/sensory deficits (ROCCO 5/5 in all extremities. Gait normal. Slight imbalance on pronator drift. Heel-to- lockett and [id number] tests intact. ), alert, normal mood/affect, oriented x 3 Skin: normal color, warm/dry Diagnostics Laboratory Results Results Past 24 Hours Test 11/12/16 15:30 11/12/16 15:50 11/12/16 19:02 Range/Units Urine Color YELLOW Urine Appearance CLEAR CLEAR Urine pH 6.0 4.5-7.5 Urine Specific [place]este 1.016 1.000-1.030 Urine Protein NEG NEG Urine Glucose (UA) NEG NEG Urine Ketones NEG NEG Urine Occult Blood NEG NEG Urine Nitrite NEG NEG Urine Bilirubin NEG NEG Urine Urobilinogen NEG NEG Urine Leukocyte Esterase SMALL NEG Urine WBC (Auto) 1-5 0-5 /hpf Urine RBC (Auto) 5-10 0-4 /hpf Urine Hyaline Casts (Auto) 1-5 0-5 /lpf Urine Epithelial Cells (Auto) 20-30 0-5 /lpf Urine Bacteria (Auto) NEG NEG White Blood Count 8.97 4.8-10.8 K/uL Red Blood Count 4.14 4.2-5.4 M/uL Hemoglobin 12.9 12.0-16.0 g/dL Hematocrit 39.5 37-47 % Mean Corpuscular Volume 95.4 80-100 fL Mean Corpuscular Hemoglobin 31.2 25-34 pg Mean Corpuscular Hemoglobin Concent 32.7 32-36 g/dl Platelet Count 221 130-400 K/uL Mean Platelet Volume 9.3 7.4-10.4 fL Neutrophils (%) (Auto) 70.1 % Lymphocytes (%) (Auto) 24.7 % Monocytes (%) (Auto) 3.6 % Eosinophils (%) (Auto) 1.1 % Basophils (%) (Auto) 0.2 % Neutrophils # (Auto) 6.28 1.4-6.5 K/uL Lymphocytes # (Auto) 2.22 1.2-3.4 K/uL Monocytes # (Auto) 0.32 0.11-0.59 K/uL Eosinophils # (Auto) 0.10 0-0.5 K/uL Basophils # (Auto) 0.02 0-0.2 K/uL RDW Standard Deviation 48.4 36.4-46.3 fL RDW Coefficient of Variation 14.0 11.5-14.5 % Immature Granulocyte % (Auto) 0.3 % Immature Granulocyte # (Auto) 0.03 0.00-0.02 K/uL Sodium Level 139 136-145 mmol/L Potassium Level 4.7 3.5-5.1 mmol/L Chloride Level 106 98-107 mmol/L Carbon Dioxide Level 28 21-32 mmol/L Anion Gap 5.0 3-11 mmol/L Blood Urea Nitrogen 10 7-18 mg/dl Creatinine 1.40 0.60-1.20 mg/dl Est Creatinine Clear Calc Drug Dose 42.9 ml/min Estimated GFR () 48.9 Estimated GFR (Non- 42.2 BUN/Creatinine Ratio 6.9 10-20 Random Glucose 80 70-99 mg/dl Calcium Level 8.9 8.5-10.1 mg/dl Magnesium Level 2.3 1.8-2.4 mg/dl Total Bilirubin 0.3 0.2-1 mg/dl Aspartate Amino Transf (AST/SGOT) 44 15-37 U/L Alanine Aminotransferase (ALT/SGPT) 40 12-78 U/L Alkaline Phosphatase 76 45-117 U/L Troponin I < 0.015 0-0.045 ng/ml Total Protein 7.5 6.4-8.2 gm/dl Albumin 3.7 3.4-5.0 gm/dl Globulin 3.8 2.5-4.0 gm/dl Albumin/Globulin Ratio 1.0 0.9-2 Thyroid Stimulating Hormone (TSH) 1.360 0.300-4.500 uIu/ml Diagnostic Radiology Head CT: 1. Small subacute right cortical parietal infarct. 2. No evidence for acute intracranial hemorrhage. 3. Mild atrophy and age-related change CXR normal Normal EKG Impression Assessment and Plan This is a 56yo F with a PMH of HTN, HLD, anxiety who presents with lightheadedness and fatigue that started this morning who was found to have a small subacute R parietal infarct on head CT. Subacute R parietal infarct: -Visualized on CT head -Not a candidate for tpa -Given 324mg aspirin in ER -No focal neurological deficits on exam. Neuro checks ordered -Carotid dopplers, echo, fasting lipids, hgb a1c ordered -Neuro consulted. Would appreciate recs regarding additional imaging -Aspirin and statin ordered for AM -PT/OT/speech evals ordered Hypotensive episode: resolved -Self reported symptomatic BP of 70/55 this AM -BP of 104/76 after multiple reads in PCP's office -BP of 131/91 on admission. Negative orthostatics -Symptoms resolved after IVFs -Valsartan held; will monitor BP Elevated creatinine: -Cr of 1.4 today. Baseline of 1.2 -Likely pre-renal cause, as patient admits to drinking less fluid lately -IVFs -Avoid nephrotoxic agents -BMP in AM Anxiety/depression: -Stable -Continue buspirone, fluoxetine, hydroxyzine PRN HLD: -Continue atorvastatin GERD: -Continue omeprazole Fibromyalgia: -Continue gabapentin Post gastrectomy syndrome: -Continue B12, vitamin D, iron DVT Ppx: unfractionated heparin Code status: FULL PCP: Alber Dispo: Discharge planning eval ordered, per stroke protocol Level of Care Telemetry Resuscitation Status FULL RESUSCITATION VTE Prophylaxis VTE Risk Assessment Done? Y/N: Yes Risk Level: Moderate Given or contraindicated: Unfractionated heparin SQ Note ATTENDING ADDENDUM Record reviewed. Patient interviewed and examined in ED. Care coordinated with Neetu Huerta PA-C. Please refer to her documentation for patient's history. Briefly, 56 YO female with history of hypertension, dyslipidemia, and other problems as noted. [place] weak and lightheaded this morning about 2 hours after taking her morning dose of valsartan. Gait was unsteady. No definite focal neuro symptoms. No headache. No palpitations. She checked her BP at home and found it to be 70/55 x 2. Evaluated in clinic. Systolic BP at that time was around 100. Referred to ED for further evaluation. BP's in ED stable. No fever or other symptoms to suggest infection. EXAM: General- no distress VS- as noted HEENT- anicteric Neck- supple; no JVD Lungs- clear Heart- RRR, no gallop Abdomen- + BS, soft, nontender; no palpable masses or hepatosplenomegaly Extremities- no pretibial edema or calf tenderness Neuro- alert, oriented; PERRL, EOMI; no facial palsy; no dysarthria; tongue midline; motor strength upper and lower extremities 5/5; patellar DTR's 1/2 bilat; plantar reflexes downgoing bilat; finger to nose intact; mild resting tremor of hands DATA: Serum creatinine 1.4. Other lab studies as noted. EKG performed at 15:53 reviewed and demonstrated NSR at 70 / minute, no acute changes. CT head per Radiology: small subacute right cortical parietal infarct. ASSESSMENT AND PLAN: Apparent hypotension at home this morning, but repeat BP's in clinic and ED were higher. Nothing to suggest sepsis, dehydration, GI bleeding, or other etiologies of hypotension. Taking valsartan for hypertension for some time without change of dose. Apparent small subacute right cortical parietal infarct noted on CT. Not candidate for thrombolytic therapy due to duration of symptoms + NIH stroke scale. If patient indeed had an ischemic stroke, best to allow permissive hypertension for first 24 hrs. Hold valsartan. Rx with ASA. Check lipids, carotid duplex, echo. PT / OT / DRAMA DIRECTOR evals. ? MRI brain +/- MRA intracranial vessels - will defer to Neuro. Please refer to FAM Huerta's documentation for discussion of other issues. Tj Neal MD .
[2016-11-12 20:27] VITALS: BP 155/98; PULSE 70; TEMP 36.7; O2SAT 96
[2016-11-12] MEDS: SODIUM CHLORIDE 0.9% 1000ML 1,000 ML IV SCH (20:50)
[2016-11-12] MEDS: GABAPENTIN 300 MG CAP PO SCH (21:19)
[2016-11-12] MEDS: FLUOXETINE HCL 20 MG CAP PO SCH (21:19)
[2016-11-12 21:44] LABS: PROTHROMBIN TIME (PATIENT) 10.4 SECONDS (9.0-12.0)
[2016-11-12] MEDS: TRAZODONE HCL 50 MG TAB PO SCH (23:11)
[2016-11-12 23:24] VITALS: BP 155/98; PULSE 70; TEMP 36.7; O2SAT 96; Ht 154.9 cm; Wt 79.2 kg
[2016-11-13] VITALS (8 sets, daily range): BP systolic 107–146; BP diastolic 72–95; PULSE 72–92; TEMP 36.5–36.9; O2SAT 94–97
[2016-11-13] MEDS: SODIUM CHLORIDE 0.9% 1000ML 1,000 ML IV SCH ×2 (02:05→07:01)
[2016-11-13] MEDS ORDERED: PNEUMOCOCCAL POLYSACCHARIDES 25 MCG/0.5 ML VIAL/SYR IM. ONE (04:45)
[2016-11-13] MEDS ORDERED: PNEUMOCOCCAL ADMINISTRATION CHARGE ONE (04:45)
[2016-11-13 05:42] LABS: BASO % 0.4 %; BASO ABS # 0.02 K/uL (0-0.2); COMPLETE YES; EOS % 2.9 %; HEMATOCRIT 34.4 % (37-47); IG% 0.2 %; LYMPH % 48.4 %; LYMPH ABS # 2.47 K/uL (1.2-3.4); MEAN CELL VOLUME 96.4 fL (80-100); MEAN CORPUSCULAR HEMOGLOBIN 30.8 pg (25-34); MONO % 8.2 %; NEUT % 39.9 %; PLATELET COUNT 191 K/uL (130-400); RED BLOOD COUNT 3.57 M/uL (4.2-5.4)
[2016-11-13 06:07] LABS: ESTIMATED AVERAGE GLUCOSE 111 mg/dl; HA1C FLAG Normal (Normal)
[2016-11-13 06:27] LABS: BUN/CREATININE RATIO 7.6 (10-20); CALCIUM 8.1 mg/dl (8.5-10.1); CREATININE 1.2 mg/dl (0.60-1.20); POTASSIUM 4.1 mmol/L (3.5-5.1)
[2016-11-13 06:29] LABS: CHOLESTEROL/HDL RATIO 1.9
--- NOTE | 2016-11-13 06:55 | DIAGNOSTIC IMAGING REPORT ---
CAROTID DOPPLER NECK ART HISTORY: Mental status change Stroke COMPARISON: None. TECHNIQUE: Real-time, grayscale, and color Doppler sonography of the carotid arteries was performed. Imaging reviewed in the transverse and longitudinal planes. All measurements were calculated based on NASCET criteria. FINDINGS: Antegrade flow is seen in the bilateral vertebral arteries. The brachial pressures are hemodynamically similar. Minimal plaque formation bilaterally The peak systolic velocity within the right ICA is 59. The right systolic ratio is 0.9. The peak systolic velocity within the left ICA is 70. The left systolic ratio is 1.1. IMPRESSION: No hemodynamically significant stenosis seen within the carotid arteries. The above report was generated using voice recognition software. It may contain grammatical, syntax or spelling errors. Electronically signed by: Phi Nova M.D. 11/13/2016 6:54 AM Dictated Date/Time: 11/13/2016 6:53 AM
[2016-11-13] MEDS: ATORVASTATIN 40 MG TAB PO SCH (08:35)
[2016-11-13] MEDS: CYANOCOBALAMIN 500 MCG TAB (VIT B-12) PO SCH (08:35)
[2016-11-13] MEDS: PANTOprazole SOD 40 MG TAB PO SCH ×2 (08:35→09:00)
[2016-11-13] MEDS: POTASSIUM CHLORIDE 10 MEQ TABCR PO SCH (08:35)
[2016-11-13] MEDS: CALCIUM 600MG + VIT D 400 IU TAB PO SCH (08:35)
[2016-11-13] MEDS: FLUOXETINE HCL 20 MG CAP PO SCH ×2 (08:36→19:42)
[2016-11-13] MEDS: ASPIRIN 81 MG ECTAB PO SCH (08:36)
[2016-11-13] MEDS: GABAPENTIN 300 MG CAP PO SCH ×2 (08:36→19:40)
[2016-11-13] MEDS: HEPARIN SOD 5000 UNIT/0.5 ML CARP SQ SCH ×2 (08:37→21:00)
[2016-11-13] MEDS ORDERED: FERROUS SULFATE PO SCH (09:00)
[2016-11-13] MEDS ORDERED: POLYETHYLENE (MIRALAX) 17 GM PACK PO ONE (12:00)
[2016-11-13] MEDS ORDERED: CLOPIDOGREL BISULFATE 75 MG TAB PO ONE (14:00)
--- NOTE | 2016-11-13 14:13 | DIAGNOSTIC IMAGING REPORT ---
MRI OF THE BRAIN WITHOUT AND WITH IV CONTRAST CLINICAL HISTORY: Stroke like symptoms. Abnormal head CT. COMPARISON STUDY: CT scan dated 11/12/2016 TECHNIQUE: MRI of the brain was performed from the vertex to the skull base utilizing various T1 and T2 weighted sequences. Following the IV administration of 8.5 mL of Gadavist contrast, additional enhanced images were obtained. FINDINGS: Sagittal T1, axial diffusion, proton density and T2 weighted axial, coronal FLAIR, and pre and post axial T1-weighted images were acquired. These were supplemented with post gadolinium coronal T1 weighted images. No intra or extra-axial mass lesions are visualized. Axial diffusion-weighted images reveal no evidence of acute or subacute infarction. There is no evidence of ventricular dilatation. There is a prominent cisterna magna Proton density T2-weighted and FLAIR images reveal a nonspecific solitary focus of increased T2 and FLAIR signal within the left frontal white matter measuring 5 mm. There are no abnormal flow voids. There is no evidence of pathologic enhancement. IMPRESSION: 1. No acute intracranial findings 2. No evidence of acute or subacute infarction. This study fails to confirm the presence of a subacute right parietal infarct 3. No evidence of intracranial mass 4. Nonspecific 5 mm focus of increased FLAIR signal within the left frontal white matter. Electronically signed by: Bart Cervantes M.D. 11/13/2016 2:12 PM Dictated Date/Time: 11/13/2016 2:08 PM
--- NOTE | 2016-11-13 14:58 | Neurology Consultation ---
Neurology Consultation Date of Consultation: Nov 13, 2016. Attending Physician: Pal Eric MD Primary Care Physician: Tj Campo III, M.D. Reason for Consultation: stroke History of Present Illness Source: patient, family, spouse Martha is a 56 year old female with a PMH of HTN, HLD, anxiety, migraine headaches who presents with lightheadedness and fatigue that started this morning. She was in her normal state of health today and took her medications at 10am. By noon, patient felt lightheaded and dizzy while cooking and needed to sit down. When she got up to use the restroom, she reports "staggering" down the rome and feeling like her thoughts were "blurred together". Associated symptoms include extreme fatigue and blurred vision. Her notes that at this time her speech was difficult to understand and maybe some right sides facial asymmetry. She sat down to check blood sugar (which was normal) and BP, which was 70/55. Went into her PCP's office, where the nurse noted a faint pulse and took multiple BP readings until she got a BP of 104/76. Patient was brought to the ER by for further evaluation. She states she had been sitting for 2 hours in a flight from [facility] and the week prior sitting in classes but states she had no leg pain. the only complaint at this time is residual fatigue.she has left leg numbness which has been ongoing since her 3 failed back surgeries. Denies facial droop, difficulty speaking or swallowing, lightheadedness, visual changes, headache, CP , SOB, nausea, vomiting, weakness of any kind. denies history of stroke, DVT/PE or heart disease. She states she was having some issues with her medications and had to re fill her medications she does not think she took any additional blood pressure medication. family history of heart and blood pressure disease, no early stroke history and no personal stroke or TIA history Past Medical/Surgical History Medical Problems: (1) CVA (cerebral vascular accident) Permanent Comment: 11/2016: Small R cortical parietal infarct Status: Acute (2) Near syncope Status: Acute (3) Substernal precordial chest pain Status: Acute Social History Smoking Status: Current every day smoker Alcohol Use: socially (Endorses 1-2 drinks per week. ) Drug Use: none Marital Status: in relationship Housing Status: lives with family Occupation Status: employed Allergies Coded Allergies: Penicillins (Verified Allergy, Unknown, HAS HAD KEFLEX W/O PROBLEM, ) Sulfa Antibiotics (Verified Allergy, Unknown, ., 11/12/16) Uncoded Nonscreenable Allergen (Unverified Allergy, Unknown, DERMABOND- RASH, 11/12/16) Current Inpatient Medications Current Inpatient Medications Medications (Trade) Dose Ordered Sig/Blaze Route Start Time Stop Time Status Last Admin Dose Admin Atorvastatin Calcium (Lipitor Tab) 40 mg QAM PO 11/13/16 09:00 12/13/16 08:59 11/13/16 08:35 40 MG Aspirin (Ecotrin Tab) 81 mg QAM PO 11/13/16 09:00 12/13/16 08:59 11/13/16 08:36 81 MG Miscellaneous Information (Pharmacist Discharge Med Rec Consult) 1 ea UD PRN N/A 11/12/16 19:15 12/12/16 19:14 Heparin Sodium (Porcine) (Heparin Sq 5000 Unit/0.5ml) 5,000 unit Q12 SQ 11/13/16 09:00 12/13/16 08:59 Ondansetron HCl (Zofran Inj) 4 mg Q6H PRN IV 11/12/16 19:15 12/12/16 19:14 Cyanocobalamin (Vitamin B-12 Tab) 1,500 mcg DAILY PO 11/13/16 09:00 12/13/16 08:59 11/13/16 08:35 1,500 MCG Fluoxetine HCl (Prozac Cap) 20 mg BID PO 11/12/16 21:00 12/12/16 20:59 11/13/16 08:36 20 MG Gabapentin (Neurontin Cap) 600 mg BID PO 11/12/16 21:00 12/12/16 20:59 11/13/16 08:36 600 MG Potassium Chloride (Klor-Con M10) 10 meq DAILY PO 11/13/16 09:00 12/13/16 08:59 11/13/16 08:35 10 MEQ Trazodone HCl (Desyrel Tab) 150 mg HS PO 11/12/16 21:00 12/12/16 20:59 11/12/16 23:11 150 MG Buspirone HCl (Buspar Tab) 10 mg BID PO 11/12/16 21:00 12/12/16 20:59 11/13/16 08:36 10 MG Calcium/Vitamin D (Caltrate Plus Tab) 1 tab DAILY PO 11/13/16 09:00 12/13/16 08:59 11/13/16 08:35 1 TAB Hydroxyzine HCl (Vistaril Tab) 25 mg DAILY PRN PO 11/12/16 19:30 12/12/16 19:29 Pantoprazole Sodium (Protonix Tab) 40 mg QAM PO 11/13/16 09:00 12/13/16 08:59 Acetaminophen (Tylenol Tab) 650 mg Q4H PRN PO 11/12/16 19:30 12/12/16 19:29 Clopidogrel Bisulfate (plAVix TAB) 75 mg QAM PO 11/14/16 09:00 12/14/16 08:59 Physical Exam Vital Signs (Past 24 Hrs): Date Time Temp Pulse Resp B/P (MAP) Pulse Ox O2 Delivery O2 Flow Rate FiO2 11/13/16 11:41 36.8 74 20 133/86 (102) 96 Room Air 11/13/16 09:13 96 Room Air 11/13/16 07:55 36.7 77 20 107/74 (85) 96 11/13/16 06:59 36.8 73 18 109/72 (84) 95 Room Air 11/13/16 04:00 Room Air 11/13/16 03:46 36.6 72 18 116/76 (89) 94 Room Air 11/13/16 00:00 Room Air 11/12/16 23:24 36.7 70 18 155/98 96 Room Air 11/12/16 20:27 36.7 70 18 155/98 (117) 96 11/12/16 19:01 79 20 150/95 95 Room Air 11/12/16 16:41 76 20 11/12/16 16:18 75 11/12/16 16:17 147/102 11/12/16 16:16 144/103 11/12/16 16:14 72 131/91 94 Room Air 75 144/103 75 147/102 11/12/16 15:39 94 Room Air 11/12/16 15:19 36.7 74 20 132/88 94 Room Air Physical Exam: Constitutional: appearance nourished, healthy and normal Ears, Nose, Mouth and Throat: mucous membranes moist, no injection and skin normal, eyes normal Cardiovascular: normal S-1 and S-2 and regular rate and rhythm Respiratory: clear to auscultation (CTA) and no rales, rhonchi or wheeze Musculoskeletal: no peripheral edema and good distal pulses Skin: no stigmata of neurocutaneous disease noted and normal and intact Eyes: extraocular muscles intact (EOMI) and pupils equal, round and reactive to light (PERRL) NEUROLOGIC EXAMINATION: Mental status: Alert and interactive Oriented to full date and location Oriented to person Speech fluent with no evidence of aphasia Cranial Nerves smile eye brow raise symmetric, tongue midline Reflexes: Deep tendon reflexes were symmetrical and graded 2/5. Plantar responses were flexor. Sensory: to light touch Coordination: Romberg absent Gait/Stance: Posture normal. Gait normal: with steady with steps, base, turning, unable to walk heel and toe walking and but steady tandem gait. Motor: Negative for pronator drift of out stretched arms with eyes closed. 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 equal, hip flex plantar flex ext 5/5 bilaterally Laboratory Results Past 24 Hours: 11/13/16 05:25 Red Blood Count 3.57, Mean Corpuscular Volume 96.4, Mean Corpuscular Hemoglobin 30.8, Mean Corpuscular Hemoglobin Concent 32.0, Mean Platelet Volume 9.0, Neutrophils (%) (Auto) 39.9, Lymphocytes (%) (Auto) 48.4, Monocytes (%) (Auto) 8.2, Eosinophils (%) (Auto) 2.9, Basophils (%) (Auto) 0.4, Neutrophils # (Auto) 2.03, Lymphocytes # (Auto) 2.47, Monocytes # (Auto) 0.42, Eosinophils # (Auto) 0.15, Basophils # (Auto) 0.02 11/13/16 05:25 Test 11/12/16 15:30 11/12/16 15:50 11/12/16 21:23 11/13/16 05:25 Urine Color YELLOW Urine Appearance CLEAR (CLEAR) Urine pH 6.0 (4.5-7.5) Urine Specific [place] 1.016 (1.000-1.030) Urine Protein NEG (NEG) Urine Glucose (UA) NEG (NEG) Urine Ketones NEG (NEG) Urine Occult Blood NEG (NEG) Urine Nitrite NEG (NEG) Urine Bilirubin NEG (NEG) Urine Urobilinogen NEG (NEG) Urine Leukocyte Esterase SMALL (NEG) Urine WBC (Auto) 1-5 /hpf (0-5) Urine RBC (Auto) 5-10 /hpf (0-4) Urine Hyaline Casts (Auto) 1-5 /lpf (0-5) Urine Epithelial Cells (Auto) 20-30 /lpf (0-5) Urine Bacteria (Auto) NEG (NEG) Estimated Average Glucose 111 mg/dl Hemoglobin A1c 5.5 % (4.5-5.6) Magnesium Level 2.3 mg/dl (1.8-2.4) Total Bilirubin 0.3 mg/dl (0.2-1) Aspartate Amino Transf (AST/SGOT) 44 U/L (15-37) Alanine Aminotransferase (ALT/SGPT) 40 U/L (12-78) Alkaline Phosphatase 76 U/L (45-117) Troponin I < 0.015 ng/ml (0-0.045) Total Protein 7.5 gm/dl (6.4-8.2) Albumin 3.7 gm/dl (3.4-5.0) Globulin 3.8 gm/dl (2.5-4.0) Albumin/Globulin Ratio 1.0 (0.9-2) Thyroid Stimulating Hormone (TSH) 1.360 uIu/ml (0.300-4.500) Prothrombin Time 10.4 SECONDS (9.0-12.0) Prothromb Time International Ratio 1.0 (0.9-1.1) White Blood Count 5.10 K/uL (4.8-10.8) Red Blood Count 3.57 M/uL (4.2-5.4) Hemoglobin 11.0 g/dL (12.0-16.0) Hematocrit 34.4 % (37-47) Mean Corpuscular Volume 96.4 fL (80-100) Mean Corpuscular Hemoglobin 30.8 pg (25-34) Mean Corpuscular Hemoglobin Concent 32.0 g/dl (32-36) Platelet Count 191 K/uL (130-400) Mean Platelet Volume 9.0 fL (7.4-10.4) Neutrophils (%) (Auto) 39.9 % Lymphocytes (%) (Auto) 48.4 % Monocytes (%) (Auto) 8.2 % Eosinophils (%) (Auto) 2.9 % Basophils (%) (Auto) 0.4 % Neutrophils # (Auto) 2.03 K/uL (1.4-6.5) Lymphocytes # (Auto) 2.47 K/uL (1.2-3.4) Monocytes # (Auto) 0.42 K/uL (0.11-0.59) Eosinophils # (Auto) 0.15 K/uL (0-0.5) Basophils # (Auto) 0.02 K/uL (0-0.2) RDW Standard Deviation 49.5 fL (36.4-46.3) RDW Coefficient of Variation 14.1 % (11.5-14.5) Immature Granulocyte % (Auto) 0.2 % Immature Granulocyte # (Auto) 0.01 K/uL (0.00-0.02) Anion Gap 6.0 mmol/L (3-11) Est Creatinine Clear Calc Drug Dose 50.1 ml/min Estimated GFR () 58.9 Estimated GFR (Non- 50.8 BUN/Creatinine Ratio 7.6 (10-20) Calcium Level 8.1 mg/dl (8.5-10.1) Triglycerides Level 73 mg/dl (0-150) Cholesterol Level 112 mg/dl (0-200) HDL Cholesterol 58 mg/dl LDL Cholesterol, Calculated 39 mg/dl VLDL Cholesterol, Calculated 15 mg/dl Cholesterol/HDL Ratio 1.9 Imaging MRI brain with and without contrast -No acute intracranial findings No evidence of acute or subacute infarction. This study fails to confirm the presence of a subacute right parietal infarct No evidence of intracranial mass Nonspecific 5 mm focus of increased FLAIR signal within the left frontal white matter. carotid doppler- No hemodynamically significant stenosis seen within the carotid arteries TTE The left ventricle is normal in size. * Left ventricular systolic function is normal. * Ejection Fraction = 60-65%. * The right ventricular systolic function is normal. * The left atrial size is normal. * Right atrial size is normal. * No significant valvular pathology. Impression 56 year old female slurred speech, lightheaded ambulatory difficulties Plan 1. MRI brain with and without- no stroke will stop plavix does not appear to be a ischemic event 2. optimize blood pressure and lipid control 3. PT/OT and speech does not appear to be any needs 4. carotid doppler -no occlusion or stenosis 5. start aspirin and continue for a life time was not on aspirin previously 6. migraine history but not typical and no headache or aura with event 7. TTE no ASD 8. further recommendation to follow I have seen and discussed above patient with Dr Erin Garcia, neurology Pt seen and examined, images reviewed. Exam is normal. Abnl in R parietal lobe artifactual. Pt sx likely related to hypoperfusion, made more likely by MRI neg for acute ischemia inspite of 3 or so hours of neuro sx. Would complete vasc roman , carotid, echo, defer to hospitalist service re need for outpt monitor. Asa seems reasonable given vascular risk factors. ENOCH Garcia MD
--- NOTE | 2016-11-13 16:00 | ECHOCARDIOGRAM REPORT ---
*NOTICE TO RECEIVING [employer] This information is strictly Confidential and protected under [place] law. [place] law prohibits you from making any further disclosure of this information unless further disclosure is expressly permitted by the written consent of the person to whom it pertains or is authorized by law. A general authorization for the release of medical or other information is not sufficient for this purpose. Hospital accepts no responsibility if the information is made available to any other person, INCLUDING THE PATIENT. Interpretation Summary * Name: KELSIE COONEY Study Date: 11/13/2016 07:27 AM BP: 116/76 mmHg * Patient Location: [facility]\S\N281\S\2 HR: 77 * : 1960 (M/d/yyyy) Gender: Female Height: 61 in * Age: 56 yrs Ethnicity: CA Weight: 171 lb * Ordering Physician: Neetu Huerta * Referring Physician: Self, Referred * Performed By: Elham Duke RCS * * Reason For Study: CEREBRAL ISCHEMIA / EMBOLUS * BSA: 1.8 m2 * -- Conclusions -- * The left ventricle is normal in size. * Left ventricular systolic function is normal. * Ejection Fraction = 60-65%. * The right ventricular systolic function is normal. * The left atrial size is normal. * Right atrial size is normal. * No significant valvular pathology. Procedure Details * A complete two-dimensional transthoracic echocardiogram was performed (2D, M-mode, Doppler and color flow Doppler). * A saline contrast injection was performed to assess for cardiac shunting. * The injection was performed through an intravenous line in the right arm. * The attending nurse who injected the saline contrast was NOMI BROOKS, RN. * A total of 20 cc of agitated saline was given. Left Ventricle * The left ventricle is normal in size. * There is normal left ventricular wall thickness. * Left ventricular systolic function is normal. * Ejection Fraction = 60-65%. * The left ventricular wall motion is normal. Right Ventricle * The right ventricle is grossly normal size. * The right ventricular systolic function is normal. Atria * The left atrial size is normal. * Right atrial size is normal. * The interatrial septum is intact with no evidence for an atrial septal defect. Mitral Valve * The mitral valve anatomy is normal. * Significant mitral regurgitation is absent. Tricuspid Valve * The tricuspid valve anatomy is normal. * There is mild tricuspid regurgitation. Aortic Valve * There is discrete nodular thickening of the left coronary cusp. * The aortic valve is tricuspid. The leaflet thickness if normal. There is no aortic stenosis, and no significant insufficiency. * Aortic stenosis is absent. * There is no significant aortic regurgitation. Pulmonic Valve * The pulmonic valve is not well visualized. * There is no significant pulmonary regurgitation. Great Vessels * The aortic root and proximal ascending aorta are normal sized. Pericardium/Pleural * There is no pericardial effusion. MMode 2D Measurements and Calculations IVSd 1.2 cm IVSs 1.4 cm LVIDd 3.9 cm LVIDs 2.6 cm LVPWd 1.3 cm LVPWs 1.4 cm IVS/LVPW 0.89 FS 33.0 % EDV(Teich) 64.7 ml ESV(Teich) 24.4 ml EF(Teich) 62.3 % EDV(cubed) 57.9 ml ESV(cubed) 17.4 ml EF(cubed) 69.9 % % IVS thick 21.8 % % LVPW thick 4.0 % LV mass(C)d 167.1 grams LV mass(C)dI 94.5 grams/m\S\2 LV mass(C)s 117.0 grams LV mass(C)sI 66.2 grams/m\S\2 SV(Teich) 40.3 ml SI(Teich) 22.8 ml/m\S\2 SV(cubed) 40.5 ml SI(cubed) 22.9 ml/m\S\2 Ao root diam 2.8 cm Ao root area 6.3 cm\S\2 LA dimension 3.4 cm LA/Ao 1.2 LVOT diam 2.0 cm LVOT area 3.1 cm\S\2 Doppler Measurements and Calculations MV E max marisol 106.8 cm/sec MV A max marisol 88.4 cm/sec MV E/A 1.2 MV P1/2t max marisol 98.4 cm/sec MV P1/2t 67.8 msec MVA(P1/2t) 3.2 cm\S\2 MV dec slope 425.3 cm/sec\S\2 MV dec time 0.17 sec Ao V2 max 122.0 cm/sec Ao max PG 6.0 mmHg Ao max PG (full) 0.57 mmHg CHERYL(V,A) 3.0 cm\S\2 CHERYL(V,D) 3.0 cm\S\2 LV V1 max PG 5.4 mmHg LV V1 max 116.0 cm/sec TR max marisol 229.6 cm/sec
--- NOTE | 2016-11-13 17:18 | Progress Note ---
Internal Med Progress Note Date of Service: Nov 13, 2016. Provider Documentation: SUBJECTIVE: resting comfortably no headaches no blurry vision no dizziness no imbalance ambulated fine no sob afebrile OBJECTIVE: Vital Signs-as noted below Exam: General-alert and oriented. Not in distress ENT-normal hearing Neck-no neck masses Lungs-cta b/l no wheezing no crackles Heart-s1 and s2 heard irregular rhythm, no murmurs Abdomen-soft bowel sounds present non tender no distension Extremities no erythema Neuro-alert and oriented moves extremities Lab data as noted below. ASSESSMENT & PLAN: This is a 56yo F with a PMH of HTN, HLD, anxiety who presents with lightheadedness and fatigue that started this morning who was found to have a small subacute R parietal infarct on head CT. Subacute R parietal infarct: Visualized on CT head Not a candidate for tpa as olut of window and also per NIH scale received 324mg aspirin in ER on aspirin and statin now MRI head no CVA seen echo unremarkable carotid Doppler unremarkable currently patinet is stable neurology on board pt/ot Hypotensive episode: resolved Self reported symptomatic BP of 70/55 at home on day of admission BP of 104/76 after multiple reads in PCP's office BP of 131/91 on admission. Negative orthostatics Valsartan held currently BP ok today will monitor Elevated creatinine: Cr of 1.4 today. 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 Code status: FULL. Dispo: possible d/c in am if stable Vital Signs: Date Time Temp Pulse Resp B/P (MAP) Pulse Ox O2 Delivery O2 Flow Rate FiO2 11/13/16 15:09 36.8 77 18 135/88 (104) 95 Room Air 11/13/16 11:41 36.8 74 20 133/86 (102) 96 Room Air 11/13/16 09:13 96 Room Air 11/13/16 07:55 36.7 77 20 107/74 (85) 96 11/13/16 06:59 36.8 73 18 109/72 (84) 95 Room Air 11/13/16 04:00 Room Air 11/13/16 03:46 36.6 72 18 116/76 (89) 94 Room Air 11/13/16 00:00 Room Air 11/12/16 23:24 36.7 70 18 155/98 96 Room Air 11/12/16 20:27 36.7 70 18 155/98 (117) 96 11/12/16 19:01 79 20 150/95 95 Room Air Lab Results: Results Past 24 Hours Test 11/12/16 21:23 11/13/16 05:25 Range/Units Prothrombin Time 10.4 9.0-12.0 SECONDS Prothromb Time International Ratio 1.0 0.9-1.1 White Blood Count 5.10 4.8-10.8 K/uL Red Blood Count 3.57 4.2-5.4 M/uL Hemoglobin 11.0 12.0-16.0 g/dL Hematocrit 34.4 37-47 % Mean Corpuscular Volume 96.4 80-100 fL Mean Corpuscular Hemoglobin 30.8 25-34 pg Mean Corpuscular Hemoglobin Concent 32.0 32-36 g/dl Platelet Count 191 130-400 K/uL Mean Platelet Volume 9.0 7.4-10.4 fL Neutrophils (%) (Auto) 39.9 % Lymphocytes (%) (Auto) 48.4 % Monocytes (%) (Auto) 8.2 % Eosinophils (%) (Auto) 2.9 % Basophils (%) (Auto) 0.4 % Neutrophils # (Auto) 2.03 1.4-6.5 K/uL Lymphocytes # (Auto) 2.47 1.2-3.4 K/uL Monocytes # (Auto) 0.42 0.11-0.59 K/uL Eosinophils # (Auto) 0.15 0-0.5 K/uL Basophils # (Auto) 0.02 0-0.2 K/uL RDW Standard Deviation 49.5 36.4-46.3 fL RDW Coefficient of Variation 14.1 11.5-14.5 % Immature Granulocyte % (Auto) 0.2 % Immature Granulocyte # (Auto) 0.01 0.00-0.02 K/uL Sodium Level 145 136-145 mmol/L Potassium Level 4.1 3.5-5.1 mmol/L Chloride Level 112 98-107 mmol/L Carbon Dioxide Level 27 21-32 mmol/L Anion Gap 6.0 3-11 mmol/L Blood Urea Nitrogen 9 7-18 mg/dl Creatinine 1.20 0.60-1.20 mg/dl Est Creatinine Clear Calc Drug Dose 50.1 ml/min Estimated GFR () 58.9 Estimated GFR (Non- 50.8 BUN/Creatinine Ratio 7.6 10-20 Random Glucose 72 70-99 mg/dl Calcium Level 8.1 8.5-10.1 mg/dl Triglycerides Level 73 0-150 mg/dl Cholesterol Level 112 0-200 mg/dl HDL Cholesterol 58 mg/dl LDL Cholesterol, Calculated 39 mg/dl VLDL Cholesterol, Calculated 15 mg/dl Cholesterol/HDL Ratio 1.9
[2016-11-13] MEDS: TRAZODONE HCL 50 MG TAB PO SCH (19:41)
[2016-11-14 03:52] VITALS: BP 137/84; PULSE 73; TEMP 37.1; O2SAT 95
[2016-11-14 03:54] VITALS: BP 137/84; PULSE 73; TEMP 37.1; O2SAT 95
[2016-11-14] MEDS ORDERED: SODIUM CHLORIDE 0.65% NA SOLN 45 ML (OCEAN) ONE (04:21)
[2016-11-14 06:02] LABS: BASO % 0.4 %; BASO ABS # 0.02 K/uL (0-0.2); COMPLETE YES; EOS % 3.3 %; IG% 0.2 %; LYMPH % 29.7 %; LYMPH ABS # 1.53 K/uL (1.2-3.4); MEAN CORPUSCULAR HEMOGLOBIN 31.1 pg (25-34); MEAN CORPUSCULAR HGB CONC 32.4 g/dl (32-36); MEAN PLATELET VOLUME 9.4 fL (7.4-10.4); MONO % 7.9 %; NEUT % 58.5 %; PLATELET COUNT 165 K/uL (130-400); RED BLOOD COUNT 3.54 M/uL (4.2-5.4); WHITE BLOOD COUNT 5.16 K/uL (4.8-10.8)
[2016-11-14 06:27] LABS: BUN/CREATININE RATIO 7.3 (10-20); CALCIUM 8.7 mg/dl (8.5-10.1); CREATININE 1.2 mg/dl (0.60-1.20); POTASSIUM 4.2 mmol/L (3.5-5.1)
[2016-11-14 07:38] VITALS: BP 146/91; PULSE 63; TEMP 36.8; O2SAT 96
[2016-11-14] MEDS: CALCIUM 600MG + VIT D 400 IU TAB PO SCH (08:03)
[2016-11-14] MEDS: ATORVASTATIN 40 MG TAB PO SCH (08:03)
[2016-11-14] MEDS: ASPIRIN 81 MG ECTAB PO SCH (08:03)
[2016-11-14] MEDS: FLUOXETINE HCL 20 MG CAP PO SCH (08:03)
[2016-11-14] MEDS: POTASSIUM CHLORIDE 10 MEQ TABCR PO SCH (08:03)
[2016-11-14] MEDS: GABAPENTIN 300 MG CAP PO SCH (08:03)
[2016-11-14] MEDS: PANTOprazole SOD 40 MG TAB PO SCH (08:03)
[2016-11-14] MEDS: CYANOCOBALAMIN 500 MCG TAB (VIT B-12) PO SCH (08:03)
[2016-11-14] MEDS: HEPARIN SOD 5000 UNIT/0.5 ML CARP SQ SCH (08:04)
[2016-11-14] MEDS ORDERED: CLOPIDOGREL BISULFATE 75 MG TAB PO SCH (09:00)
[2016-11-14 11:34] VITALS: BP 130/87; PULSE 83; TEMP 37; O2SAT 95
--- NOTE | 2016-11-14 12:09 | Clinical Documentation Query ---
STACIE Gooden : CLINICAL DOCUMENTATION QUERY Documentation includes "Subacute R parietal infarct" but notes "MRI head no CVA seen". Please explicitly clarify so as to avoid information coder uncertainty at time of discharge. Thank you. In your clinical opinion is this patient being managed for: ( ) MRI negative subacute right parietal infarct ( ) Subacute right parietal infarct ruled out ( ) Not Agree ( ) Other explanation of clinical findings (Please Explain) ( ) Unable to determine (Please Define) ( ) Need to Discuss Please clarify and document your clinical opinion in the progress notes and discharge summary. Terms such as "probable", "suspected", "likely", "questionable", "possible", or "still to be ruled out" are acceptable. IF IN AGREEMENT, YOU MUST DOCUMENT ABOVE DIAGNOSTIC STATEMENT IN DAILY PROGRESS NOTES AND DISCHARGE SUMMARY. This document is not part of the patient's record. Thank You, Junior Hodge, RN [phone]
--- NOTE | 2016-11-14 14:46 | Neurology Progress Notes ---
Neurology Progress Note Date of Service Nov 14, 2016. Subjective Martha is a 56 year old female with a PMH of HTN, HLD, anxiety, migraine headaches who presents with lightheadedness and fatigue that started this morning. She was in her normal state of health today and took her medications at 10am. By noon, patient felt lightheaded and dizzy while cooking and needed to sit down. When she got up to use the restroom, she reports "staggering" down the rome and feeling like her thoughts were "blurred together". Associated symptoms include extreme fatigue and blurred vision. Her notes that at this time her speech was difficult to understand and maybe some right sides facial asymmetry. She sat down to check blood sugar (which was normal) and BP, which was 70/55. Went into her PCP's office, where the nurse noted a faint pulse and took multiple BP readings until she got a BP of 104/76. Patient was brought to the ER by for further evaluation. She states she had been sitting for 2 hours in a flight from [facility] and the week prior sitting in classes but states she had no leg pain. the only complaint at this time is residual fatigue.she has left leg numbness which has been ongoing since her 3 failed back surgeries. Denies facial droop, difficulty speaking or swallowing, lightheadedness, visual changes, headache, CP , SOB, nausea, vomiting, weakness of any kind. denies history of stroke, DVT/PE or heart disease. She states she was having some issues with her medications and had to re fill her medications she does not think she took any additional blood pressure medication. family history of heart and blood pressure disease, no early stroke history and no personal stroke or TIA history Martha states she has had no further events and feels ready to go home. Discussed the work up done and recommendations for aspirin daily added to her medications. denies CP, SOB, abdominal pain, one sided weakness, numbness tingling, no light headed with standing or walking, N, V+sinus headache (used some nasal spray but did no need oral medication) Objective Date Time Temp Pulse Resp B/P (MAP) Pulse Ox O2 Delivery O2 Flow Rate FiO2 11/14/16 12:00 Room Air 11/14/16 11:34 37.0 83 16 130/87 (101) 95 Room Air 11/14/16 08:00 Room Air 11/14/16 07:38 36.8 63 20 146/91 (109) 96 Room Air 11/14/16 04:00 Room Air 11/14/16 03:54 37.1 73 18 137/84 (101) 95 11/14/16 00:00 Room Air 11/13/16 23:54 36.5 74 18 146/95 (112) 94 Room Air 11/13/16 20:00 Room Air 11/13/16 19:08 36.9 92 18 129/83 (98) 97 Room Air 11/13/16 16:00 Room Air 11/13/16 15:09 36.8 77 18 135/88 (104) 95 Room Air Last 24 Hours Test 11/14/16 05:18 White Blood Count 5.16 K/uL Red Blood Count 3.54 M/uL Hemoglobin 11.0 g/dL Hematocrit 34.0 % Mean Corpuscular Volume 96.0 fL Mean Corpuscular Hemoglobin 31.1 pg Mean Corpuscular Hemoglobin Concent 32.4 g/dl Platelet Count 165 K/uL Mean Platelet Volume 9.4 fL Neutrophils (%) (Auto) 58.5 % Lymphocytes (%) (Auto) 29.7 % Monocytes (%) (Auto) 7.9 % Eosinophils (%) (Auto) 3.3 % Basophils (%) (Auto) 0.4 % Neutrophils # (Auto) 3.02 K/uL Lymphocytes # (Auto) 1.53 K/uL Monocytes # (Auto) 0.41 K/uL Eosinophils # (Auto) 0.17 K/uL Basophils # (Auto) 0.02 K/uL RDW Standard Deviation 48.6 fL RDW Coefficient of Variation 13.8 % Immature Granulocyte % (Auto) 0.2 % Immature Granulocyte # (Auto) 0.01 K/uL Sodium Level 142 mmol/L Potassium Level 4.2 mmol/L Chloride Level 111 mmol/L Carbon Dioxide Level 27 mmol/L Anion Gap 4.0 mmol/L Blood Urea Nitrogen 9 mg/dl Creatinine 1.20 mg/dl Est Creatinine Clear Calc Drug Dose 50.4 ml/min Estimated GFR () 58.9 Estimated GFR (Non- 50.8 BUN/Creatinine Ratio 7.3 Random Glucose 80 mg/dl Calcium Level 8.7 mg/dl Imaging: no new imaging Exam: Gen: alert NAD lungs CTA CV RRR oriented to [facility], 2017, with no slurred or garbled speech strength 5/5 bilaterally 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 ext 5/5 bilaterally Current Inpatient Medications Medications (Trade) Dose Ordered Sig/Blaze Route Start Time Stop Time Status Last Admin Dose Admin Atorvastatin Calcium (Lipitor Tab) 40 mg QAM PO 11/13/16 09:00 12/13/16 08:59 11/14/16 08:03 40 MG Aspirin (Ecotrin Tab) 81 mg QAM PO 11/13/16 09:00 12/13/16 08:59 11/14/16 08:03 81 MG Heparin Sodium (Porcine) (Heparin Sq 5000 Unit/0.5ml) 5,000 unit Q12 SQ 11/13/16 09:00 12/13/16 08:59 Ondansetron HCl (Zofran Inj) 4 mg Q6H PRN IV 11/12/16 19:15 12/12/16 19:14 Cyanocobalamin (Vitamin B-12 Tab) 1,500 mcg DAILY PO 11/13/16 09:00 12/13/16 08:59 11/14/16 08:03 1,500 MCG Fluoxetine HCl (Prozac Cap) 20 mg BID PO 11/12/16 21:00 12/12/16 20:59 11/14/16 08:03 20 MG Gabapentin (Neurontin Cap) 600 mg BID PO 11/12/16 21:00 12/12/16 20:59 11/14/16 08:03 600 MG Potassium Chloride (Klor-Con M10) 10 meq DAILY PO 11/13/16 09:00 12/13/16 08:59 11/14/16 08:03 10 MEQ Trazodone HCl (Desyrel Tab) 150 mg HS PO 11/12/16 21:00 12/12/16 20:59 11/13/16 19:41 150 MG Buspirone HCl (Buspar Tab) 10 mg BID PO 11/12/16 21:00 12/12/16 20:59 11/14/16 08:03 10 MG Calcium/Vitamin D (Caltrate Plus Tab) 1 tab DAILY PO 11/13/16 09:00 12/13/16 08:59 11/14/16 08:03 1 TAB Hydroxyzine HCl (Vistaril Tab) 25 mg DAILY PRN PO 11/12/16 19:30 12/12/16 19:29 Pantoprazole Sodium (Protonix Tab) 40 mg QAM PO 11/13/16 09:00 12/13/16 08:59 11/14/16 08:03 40 MG Acetaminophen (Tylenol Tab) 650 mg Q4H PRN PO 11/12/16 19:30 12/12/16 19:29 11/14/16 04:22 650 MG Impression 56 year old female slurred speech, lightheaded ambulatory difficulties- resolved Plan 1. MRI brain with and without- no stroke will stop plavix does not appear to be a ischemic event 2. optimize blood pressure and lipid control 3. PT/OT and speech does not appear to be any needs 4. carotid doppler -no occlusion or stenosis 5. start aspirin 81mg daily and continue for a life time was not on aspirin previously 6. migraine history but not typical and no headache or aura with event 7. TTE no ASD 8. will defer cardiac monitoring to hospitalist service at discharge 9. 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 REc ASA bc of vascular risk factors. Will sign off. ENOCH Garcia MD
[2016-11-14 15:17] VITALS: BP 134/87; PULSE 68; TEMP 36.8; O2SAT 95
[2016-11-14] MEDS ORDERED: ASPEC81 PO (15:41)
[2016-11-14] MEDS ORDERED: LPT40 PO (15:41)
[2016-11-14] MEDS ORDERED: VALS40TA2 PO (15:41)
--- NOTE | 2016-11-14 15:43 | Discharge Instructions ---
Discharge Instructions Date of Service Nov 14, 2016. Admission Reason for Admission: Hyoptension, Lightheadedness Discharge Discharge Diagnosis / Problem: hyptension, lightheadedness Discharge Goals Goal(s): Decrease discomfort, Improve function Activity Recommendations Activity Limitations: resume your previous activity . Instructions / Follow-Up Instructions / Follow-Up FOLLOWUP WITH FAMILY DOCTOR WITH IN A WEEK. ( PATIENT WANTS TO MAKE HER OWN APPOINTMENT). HOLTER PER FAMILY DOCTOR. TO CHECK BLOOD PRESSURE AT HOME AND FOLLOWUP WITH FAMILY DOCTOR. Current Hospital Diet Patient's current hospital diet: Low Sodium Diet (2gm Na), AHA Diet (Heart Healthy) Discharge Diet Recommended Diet: AHA Diet (Heart Healthy) Pending Studies Studies pending at discharge: no Laboratory Results Hemoglobin A1c Test 11/12/16 15:50 Range/Units Estimated Average Glucose 111 mg/dl Hemoglobin A1c 5.5 4.5-5.6 % Lipid Panel Test 11/13/16 05:25 Range/Units Triglycerides Level 73 0-150 mg/dl Cholesterol Level 112 0-200 mg/dl HDL Cholesterol 58 mg/dl Cholesterol/HDL Ratio 1.9 LDL Cholesterol, Calculated 39 mg/dl Medical Emergencies . Who to Call and When: Medical Emergencies: If at any time you feel your situation is an emergency, please call 911 immediately. . Non-Emergent Contact Non-Emergency issues call your: Primary Care Provider . . "Provider Documentation" section prepared by Pal Eric. . VTE Core Measure Inpt VTE Proph given/why not?: Unfractionated heparin SQ
[2016-11-14 15:57] VITALS: BP 134/87; PULSE 68; TEMP 36.8; O2SAT 95
--- NOTE | 2016-11-14 19:58 | Progress Note ---
Internal Med Progress Note Date of Service: Nov 14, 2016. Provider Documentation: SUBJECTIVE: resting comfortably ambulating fine no sob speech fine want to go home OBJECTIVE: Vital Signs-as noted below Exam: General-alert and oriented. Not in distress ENT-normal hearing Neck-no neck masses Lungs-cta b/l no wheezing no crackles Heart-s1 and s2 heard irregular rhythm, no murmurs Abdomen-soft bowel sounds present non tender no distension Extremities no erythema Neuro-alert and oriented moves extremities Lab data as noted below. ASSESSMENT & PLAN: This is a 56yo F with a PMH of HTN, HLD, anxiety who presents with lightheadedness and fatigue that started this morning who was found to have a small subacute R parietal infarct on head CT. Subacute R parietal infarct?: Visualized on CT head Not a candidate for tpa as olut of window and also per NIH scale received 324mg aspirin in ER on aspirin and statin now MRI head no CVA seen echo unremarkable carotid Doppler unremarkable currently patient is stable neurology on board- doubts ischemic event possibly from hypotension discharged on aspirin, increased Lipitor to 40mg daily holter as per PCP. Hypotensive episode: resolved Self reported symptomatic BP of 70/55 at home on day of admission BP of 104/76 after multiple reads in PCP's office BP of 131/91 on admission. Negative orthostatics Valsartan held currently BP ok today d/leif on reduced dose of valsartan f/u with pcp Elevated creatinine: Cr of 1.4 today. 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, vitamin D, iron Discharged home Vital Signs: Date Time Temp Pulse Resp B/P (MAP) Pulse Ox O2 Delivery O2 Flow Rate FiO2 11/14/16 15:57 36.8 68 16 95 Room Air 11/14/16 15:17 36.8 68 16 134/87 (103) 95 Room Air 11/14/16 12:00 Room Air 11/14/16 11:34 37.0 83 16 130/87 (101) 95 Room Air 11/14/16 08:00 Room Air 11/14/16 07:38 36.8 63 20 146/91 (109) 96 Room Air 11/14/16 04:00 Room Air 11/14/16 03:54 37.1 73 18 137/84 (101) 95 11/14/16 00:00 Room Air 11/13/16 23:54 36.5 74 18 146/95 (112) 94 Room Air 11/13/16 20:00 Room Air Lab Results: Results Past 24 Hours Test 11/14/16 05:18 Range/Units White Blood Count 5.16 4.8-10.8 K/uL Red Blood Count 3.54 4.2-5.4 M/uL Hemoglobin 11.0 12.0-16.0 g/dL Hematocrit 34.0 37-47 % Mean Corpuscular Volume 96.0 80-100 fL Mean Corpuscular Hemoglobin 31.1 25-34 pg Mean Corpuscular Hemoglobin Concent 32.4 32-36 g/dl Platelet Count 165 130-400 K/uL Mean Platelet Volume 9.4 7.4-10.4 fL Neutrophils (%) (Auto) 58.5 % Lymphocytes (%) (Auto) 29.7 % Monocytes (%) (Auto) 7.9 % Eosinophils (%) (Auto) 3.3 % Basophils (%) (Auto) 0.4 % Neutrophils # (Auto) 3.02 1.4-6.5 K/uL Lymphocytes # (Auto) 1.53 1.2-3.4 K/uL Monocytes # (Auto) 0.41 0.11-0.59 K/uL Eosinophils # (Auto) 0.17 0-0.5 K/uL Basophils # (Auto) 0.02 0-0.2 K/uL RDW Standard Deviation 48.6 36.4-46.3 fL RDW Coefficient of Variation 13.8 11.5-14.5 % Immature Granulocyte % (Auto) 0.2 % Immature Granulocyte # (Auto) 0.01 0.00-0.02 K/uL Sodium Level 142 136-145 mmol/L Potassium Level 4.2 3.5-5.1 mmol/L Chloride Level 111 98-107 mmol/L Carbon Dioxide Level 27 21-32 mmol/L Anion Gap 4.0 3-11 mmol/L Blood Urea Nitrogen 9 7-18 mg/dl Creatinine 1.20 0.60-1.20 mg/dl Est Creatinine Clear Calc Drug Dose 50.4 ml/min Estimated GFR () 58.9 Estimated GFR (Non- 50.8 BUN/Creatinine Ratio 7.3 10-20 Random Glucose 80 70-99 mg/dl Calcium Level 8.7 8.5-10.1 mg/dl
--- NOTE | 2016-11-14 20:13 | Discharge Summary ---
Discharge Summary Date of Service Nov 14, 2016. Discharge Summary Admission Date: Nov 12, 2016 at 19:02 Discharge Date: Nov 14, 2016 Discharge Disposition: Home Principal Diagnosis: HYPOTENSION LIGHTHEADEDNESS TIA? Secondary Diagnoses/Problems: (1) Anxiety Status: Chronic (2) CKD (chronic kidney disease), stage III Status: Chronic (3) Degenerative disc disease, lumbar Status: Chronic (4) Depression Status: Chronic (5) Fibromyalgia Status: Chronic (6) HLD (hyperlipidemia) Status: Chronic (7) HTN (hypertension) Status: Chronic (8) MEYER (nonalcoholic steatohepatitis) Status: Chronic (9) Post gastrectomy syndrome Status: Chronic Procedures: CXR: Negative chest. CT HEAD: 1. Small subacute right cortical parietal infarct. 2. No evidence for acute intracranial hemorrhage. 3. Mild atrophy and age-related change CAROTID US: No hemodynamically significant stenosis seen within the carotid arteries. BRAIN MRI: 1. No acute intracranial findings 2. No evidence of acute or subacute infarction. This study fails to confirm the presence of a subacute right parietal infarct 3. No evidence of intracranial mass 4. Nonspecific 5 mm focus of increased FLAIR signal within the left frontal white matter. ECHO: * The left ventricle is normal in size. * Left ventricular systolic function is normal. * Ejection Fraction = 60-65%. * The right ventricular systolic function is normal. * The left atrial size is normal. * Right atrial size is normal. No significant valvular pathology Consultations: NEUROLOGY Medication Reconciliation New Medications: Valsartan (Diovan) 40 Mg Tab 40 MG PO DAILY, #30 TAB 1 Refill Aspirin (Aspirin EC Low Dose) 81 Mg Ectab 81 MG PO QAM, #30 2 Refills Atorvastatin (Atorvastatin Calcium) 40 Mg Tab 40 MG PO QAM, #30 TAB 2 Refills Continued Medications: Buspirone HCl (Buspirone HCl) 10 Mg Tab 10 MG PO BID Calcium Carbonate-Cholecalcife (Caltrate 600+D) 1 Tab Tab 1 TAB PO DAILY Cyanocobalamin (Vitamin B-12) 1,000 Mcg Tab 1500 MCG PO DAILY, TAB Ferrous Sulfate (Iron) 28 Mg Tab 28 MG PO DAILY Fluoxetine (Prozac) 20 Mg Cap 20 MG PO BID, 0 Refills Gabapentin (Neurontin) 300 Mg Cap 600 MG PO BID, CAP Hydroxyzine Pamoate (Vistaril) 25 Mg Cap 25 MG PO DAILY PRN for Anxiety, CAP Multivitamin (Multivitamin) Tab 1 TAB PO DAILY, 0 Refills Omeprazole (Prilosec) 40 Mg Cap 40 MCG PO DAILY Oxycodone HCl (Oxycodone HCl) 5 Mg Tab 5 MG PO UD PRN for Pain Potassium Chloride (Micro-K Ext Rel) 10 Meq Capcr 10 MEQ PO DAILY, 0 Refills Trazodone Hcl (Desyrel) 150 Mg Tab 150 MG PO HS, TAB Discontinued Medications: Valsartan (Diovan) 160 Mg Tab 80 MG PO QAM, TAB Admission Information HPI (per Admitting provider): This is a 56yo F with a PMH of HTN, HLD, anxiety who presents with lightheadedness and fatigue that started this morning. Patient was in her normal state of health today and took her medications at 10am. By noon, patient felt lightheaded and dizzy while cooking and needed to sit down. When she got up to use the restroom, she reports "staggering" down the rome and feeling like her thoughts were "blurred together". Associated symptoms include extreme fatigue and blurred vision. Her notes that at this time her speech was difficult to understand. Patient sat down to check blood sugar (which was normal) and BP, which was 70/55. Went into her PCP's office, where the nurse noted a faint pulse and took multiple BP readings until she got a BP of 104/76. Patient was brought to the ER by for further evaluation. Patient did not eat or drink anything prior to this episode, which is normal for her. Reports not eating until mid-afternoon most days. Has been taking all medications regularly. Currently, all symptoms during episode have resolved except for some residual fatigue and difficulty with balance when standing. Denies facial droop, difficulty speaking or swallowing, lightheadedness, visual changes, headache, CP, SOB, nausea, vomiting, weakness of any kind. Has chronic numbness in L foot from a back surgery in 2011 and also endorses intermittent difficulty with urination. Denies history of stroke, DVT/PE or heart disease. Physical Exam (per Admitting): General Appearance: WD/WN, no apparent distress Head: normocephalic, atraumatic Eyes: normal inspection, PERRL, EOMI ENT: hearing grossly normal Neck: supple, thyroid normal, trachea midline Respiratory/Chest: chest non-tender, lungs clear, normal breath sounds, no respiratory distress, no accessory muscle use Cardiovascular: regular rate, rhythm, no murmur, normal peripheral pulses Abdomen/GI: normal bowel sounds, non tender, soft, no organomegaly Back: normal inspection Extremities/Musculoskelatal: normal inspection, no calf tenderness, normal capillary refill, no pedal edema 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 Gait normal. Slight imbalance on pronator drift. Heel-to- lockett and [id number] tests intact. ), alert, normal mood/affect, oriented x 3 Skin: normal color, warm/dry Physical Exam (per Admitting): General Appearance: WD/WN, no apparent distress Head: normocephalic, atraumatic Eyes: normal inspection, PERRL, EOMI ENT: hearing grossly normal Neck: supple, thyroid normal, trachea midline Respiratory/Chest: chest non-tender, lungs clear, normal breath sounds, no respiratory distress, no accessory muscle use Cardiovascular: regular rate, rhythm, no murmur, normal peripheral pulses Abdomen/GI: normal bowel sounds, non tender, soft, no organomegaly Back: normal inspection Extremities/Musculoskelatal: normal inspection, no calf tenderness, normal capillary refill, no pedal edema 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 Gait normal. Slight imbalance on pronator drift. Heel-to- lockett and [id number] tests intact. ), alert, normal mood/affect, oriented x 3 Skin: normal color, warm/dry Hospital Course This is a 56yo F with a PMH of HTN, HLD, anxiety who presents with lightheadedness and fatigue that started this morning who was found to have a small subacute R parietal infarct on head CT. Subacute R parietal infarct? TIA?: Visualized on CT head Not a candidate for tpa as olut of window and also per NIH scale received 324mg aspirin in ER on aspirin and statin now MRI head no CVA seen echo unremarkable carotid Doppler unremarkable currently patient is stable neurology on board- doubts ischemic event possibly from hypotension discharged on aspirin, increased Lipitor to 40mg daily holter as per PCP. Hypotensive episode: resolved Self reported symptomatic BP of 70/55 at home on day of admission BP of 104/76 after multiple reads in PCP's office BP of 131/91 on admission. Negative orthostatics Valsartan held currently BP ok today d/leif on reduced dose of valsartan f/u with pcp Elevated creatinine: Cr of 1.4 today. 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 Discharge Instructions Discharge Instructions Date of Service Nov 14, 2016. Admission Reason for Admission: Hyoptension, Lightheadedness Discharge Discharge Diagnosis / Problem: hyptension, lightheadedness Discharge Goals Goal(s): Decrease discomfort, Improve function Activity Recommendations Activity Limitations: resume your previous activity . Instructions / Follow-Up Instructions / Follow-Up FOLLOWUP WITH FAMILY DOCTOR WITH IN A WEEK. ( PATIENT WANTS TO MAKE HER OWN APPOINTMENT). HOLTER PER FAMILY DOCTOR. TO CHECK BLOOD PRESSURE AT HOME AND FOLLOWUP WITH FAMILY DOCTOR. Current Hospital Diet Patient's current hospital diet: Low Sodium Diet (2gm Na), AHA Diet (Heart Healthy) Discharge Diet Recommended Diet: AHA Diet (Heart Healthy) Pending Studies Studies pending at discharge: no Laboratory Results Hemoglobin A1c Test 11/12/16 15:50 Range/Units Estimated Average Glucose 111 mg/dl Hemoglobin A1c 5.5 4.5-5.6 % Lipid Panel Test 11/13/16 05:25 Range/Units Triglycerides Level 73 0-150 mg/dl Cholesterol Level 112 0-200 mg/dl HDL Cholesterol 58 mg/dl Cholesterol/HDL Ratio 1.9 LDL Cholesterol, Calculated 39 mg/dl Medical Emergencies . Who to Call and When: Medical Emergencies: If at any time you feel your situation is an emergency, please call 911 immediately. . Non-Emergent Contact Non-Emergency issues call your: Primary Care Provider . . "Provider Documentation" section prepared by Pal Eric. . VTE Core Measure Inpt VTE Proph given/why not?: Unfractionated heparin SQ
== END 2016-11-14 16:24 | disposition home or self-care (01) | DRG 69 ==
LOC: C.EDB 15:12 → C.MED 19:02 → ENRESERV 19:23
PROVIDERS: ADMIT Hospitalist; ATTEND Internal Medicine
DX: G45.8 Other transient cerebral ischemic attacks and related syndromes (principal); I95.9 Hypotension, unspecified; F41.9 Anxiety disorder, unspecified; F32.9 Major depressive disorder, single episode, unspecified; N18.3 Chronic kidney disease, stage 3 (moderate); I12.9 Hypertensive chronic kidney disease with stage 1 through stage 4 chronic kidney disease, or unspecified chronic kidney disease; E78.5 Hyperlipidemia, unspecified; K21.9 Gastro-esophageal reflux disease without esophagitis; G43.909 Migraine, unspecified, not intractable, without status migrainosus; M79.7 Fibromyalgia; K75.81 Nonalcoholic steatohepatitis (NASH); R42 Dizziness and giddiness; R26.2 Difficulty in walking, not elsewhere classified; R47.81 Slurred speech; K91.1 Postgastric surgery syndromes; R79.89 Other specified abnormal findings of blood chemistry; M51.36 Other intervertebral disc degeneration, lumbar region; Z87.891 Personal history of nicotine dependence; Z79.899 Other long term (current) drug therapy; Z79.891 Long term (current) use of opiate analgesic

== ENCOUNTER 2017-02-24 17:50 | Emergency (ER) | payer OTHER ==
[~2017-02-24] VITALS: Ht 154.9 cm; Wt 78.2 kg
[~2017-02-24 17:50] MED LIST changes: +ASPEC81 PO; -DVN/160 PO; +LPT40 PO; +VALS40TA2 PO
[2017-02-24 17:52] VITALS: Ht 154.9 cm; Wt 78.2 kg
[2017-02-24] MEDS ORDERED: PROP10TA7 PO (18:35)
[2017-02-24] MEDS ORDERED: NRN600 PO (18:35)
[2017-02-24] MEDS ORDERED: WLLSR150 PO (18:35)
[2017-02-24] MEDS ORDERED: VALS-56 PO (18:35)
[2017-02-24] MEDS ORDERED: LPT/20 PO (18:35)
[2017-02-24] MEDS ORDERED: PANT40TA2 PO (18:35)
[2017-02-24] MEDS ORDERED: ASPI81TA28 PO (18:35)
--- NOTE | 2017-02-24 19:01 | EMERGENCY ROOM VISIT NOTE ---
ED Visit Note First contact with patient: 17:55 CHIEF COMPLAINT: Finger laceration HISTORY OF PRESENT ILLNESS: This 56-year-old female patient presents to the emergency department approximately one and a half hours after cutting the lateral aspect of the distal left index finger with a roller crafting knife. The patient states he was cutting up some decorations supplies, when she cut her left index finger when the roller cutter slipped. She states there is a significant amount of bleeding and a flap on the finger which she did feel was deep. The bleeding has not stopped with direct pressure. Denies weakness or numbness of the finger. The patient has full range of motion of the fingers. The patient rates the pain as throbbing and 7/10. The patient denies any other injuries. The patient's tetanus shot is up to date. REVIEW OF SYSTEMS: A 6 system review of systems was completed with positives and pertinent negatives listed in the HPI. ALLERGIES: Penicillin, Dermabond, sulfa MEDICATIONS: Please see list. PMH: "nothing that has anything to do with why I'm here." SOCIAL HISTORY: The patient lives locally with family. She denies drug, alcohol , tobacco use. PHYSICAL EXAM: Vital Signs: Reviewed Nurse's notes, vital signs stable. GENERAL : This is a 56-year-old white female, in no acute distress, well developed, well nourished. SKIN: There is a 1 cm long laceration on the lateral aspect of the left index finger. This is in the shape of a half [place]. The wound edges lie flat together, however there is a skin flap which is able to be pulled away from the finger. There is no foreign material in the wound and it looks clean. There is moderate bleeding from some superficial capillaries in the base of the wound. The bleeding did improve with direct pressure and ice. No deep structures such as tendons, bones, or significant blood vessels are seen in the base of the wound. The partial avulsion does not open up to the subcutaneous layer. Extension and flexion of the finger is full and strong. Full range of motion of the wrist and other fingers. Capillary refill less than 2 seconds. Normal sensation to light and sharp touch. EMERGENCY DEPARTMENT COURSE: I examined the patient. The wound was explored as above. I did discuss options with the patient including suturing versus less invasive management of the wound. Direct pressure was applied with ice, and the bleeding did subside significantly. The wound did rebleed with removal of the bandage, however was easily controlled. The patient states she is in agreement with noninvasive management of the wound, and no sutures. I do feel this is reasonable, as the laceration is not very deep and the wound edges do live together well. The partial avulsion was held together with Steri-Strips when the bleeding stopped. The wound was dressed with a bulky bandage. Hemostasis was achieved. Discharge instructions were reviewed. The patient was discharged home in good condition. I attest that I have personally reviewed the patient's current medication list. Patient was found to have normal blood pressure on screening and does not require follow-up. DIFFERENTIAL DIAGNOSIS: Laceration, avulsion, fracture, contusion, and others DIAGNOSIS: Finger laceration Problem List Medical Problems: (1) Anxiety Status: Chronic (2) CKD (chronic kidney disease), stage III Status: Chronic (3) Degenerative disc disease, lumbar Status: Chronic (4) Depression Status: Chronic (5) Fibromyalgia Status: Chronic (6) HLD (hyperlipidemia) Status: Chronic (7) HTN (hypertension) Status: Chronic (8) MEYER (nonalcoholic steatohepatitis) Status: Chronic (9) Post gastrectomy syndrome Status: Chronic Surgical Problems: (1) H/O breast surgery Status: Chronic (2) H/O gastric bypass Status: Chronic (3) H/O: hysterectomy Status: Chronic (4) Previous back surgery Status: Chronic Current/Historical Medications Scheduled Aspirin (Aspirin Ec), 81 MG PO DAILY Atorvastatin (Atorvastatin Calcium), 1 TAB PO DAILY Bupropion HCl (Bupropion HCl Sr), 1 TAB PO DAILY Buspirone HCl (Buspirone HCl), 10 MG PO BID Calcium Carbonate-Cholecalcife (Caltrate 600+D), 1 TAB PO DAILY Cyanocobalamin (Vitamin B-12), 1,500 MCG PO DAILY Ferrous Sulfate (Iron), 28 MG PO DAILY Fluoxetine (Prozac), 20 MG PO BID Gabapentin (Gabapentin), 1 TAB PO BID Multivitamin (Multivitamin), 1 TAB PO DAILY Pantoprazole (Pantoprazole Sodium), 1 TAB PO BID Potassium Chloride (Micro-K Ext Rel), 10 MEQ PO DAILY Trazodone Hcl (Desyrel), 150 MG PO HS Valsartan (Valsartan), 1 TAB PO DAILY Scheduled PRN Hydroxyzine Pamoate (Vistaril), 25 MG PO DAILY PRN for Anxiety Oxycodone HCl (Oxycodone HCl), 5 MG PO UD PRN for Pain Propranolol (Inderal), 1 TAB PO BID PRN for TREMORS Allergies Coded Allergies: Penicillins (Verified Allergy, Unknown, HAS HAD KEFLEX W/O PROBLEM, ) Sulfa Antibiotics (Verified Allergy, Unknown, ., 02/24/17) Uncoded Nonscreenable Allergen (Unverified Allergy, Unknown, DERMABOND- RASH, 02/24/17) Vital Signs Date Time Temp Pulse Resp B/P (MAP) Pulse Ox O2 Delivery O2 Flow Rate FiO2 02/24/17 17:52 36.8 86 18 128/85 96 Room Air Departure Information Impression Primary Impression: Laceration of finger Dispostion Home / Self-Care Condition GOOD Referrals Tj Campo III, M.D. (PCP) Patient Instructions ED Laceration Chin Sutr Tape, [facility] Additional Instructions You were seen in the emergency department for a finger laceration. As discussed , while it did have a significant amount of bleeding, the laceration was superficial, and sutures were not necessary. Steri-Strips were placed on the finger to help keep the partial avulsion flap against the skin and to help with healing. You may replace the outer bandage as needed. When the Steri-Strips fall off, use a small amount of bacitracin ointment and bandage to keep the wound covered and clean. Do not get the wound wet until it has healed and closed. At this time, you may begin washing the wound with soap and water. Please do not score over the wound , but instead let the water run over the wound. Follow-up with the primary care provider in 3-5 days if no improvement in symptoms. Return to the emergency department for worsening pain, redness, puslike drainage , fever, chills, vomiting, or other concerning symptoms. Problem Qualifiers Primary Impression: Laceration of finger Encounter type: initial encounter Finger: index finger Damage to nail status: without damage Foreign body presence: without foreign body Laterality: right Qualified Codes: S61.210A - Laceration without foreign body of right index finger without damage to nail, initial encounter
[2017-02-24 19:14] VITALS: BP 122/80; PULSE 80; TEMP 36.8; O2SAT 96
== END 2017-02-24 19:15 | disposition home or self-care (01) ==
LOC: C.EDB 17:51 → C.EDD 19:15
DX: S61.211A Laceration without foreign body of left index finger without damage to nail, initial encounter (principal); W26.0XXA Contact with knife, initial encounter; Y92.89 Other specified places as the place of occurrence of the external cause; F41.9 Anxiety disorder, unspecified; F32.9 Major depressive disorder, single episode, unspecified; I12.9 Hypertensive chronic kidney disease with stage 1 through stage 4 chronic kidney disease, or unspecified chronic kidney disease; N18.3 Chronic kidney disease, stage 3 (moderate); M79.7 Fibromyalgia; Z98.84 Bariatric surgery status; Z79.899 Other long term (current) drug therapy

== ENCOUNTER 2018-06-18 16:22 | Inpatient (IN) ==
[2018-06-18] MEDS ORDERED: SODIUM CHLORIDE 0.9% 1000ML 1,000 ML IV SCH (17:00)
[2018-06-18] MEDS: MoRPHine SULFATE 4 MG/ML 1 ML CARP\\VIAL IV PRN ×2 (17:07→17:39)
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
[2018-06-18 17:41] LABS: Basophils # (auto) 0.01 K/uL (0-0.2); Basophils % (auto) 0.1 %; Eosinophils # (auto) 0.04 K/uL (0-0.5); Eosinophils % (auto) 0.4 %; Hematocrit (blood only) 35.8 % (37-47); Hemoglobin 11.9 g/dL (12.0-16.0); Immature Granulocytes # (auto) 0.07 K/uL (0.00-0.02); Immature Granulocytes % (auto) 0.6 %; Lymphocytes # (auto) 1.02 K/uL (1.2-3.4); Lymphocytes % (auto) 9.3 %; Mean Corpuscular Hgb Conc 33.2 g/dL (32-36); Mean Corpuscular Volume 95.5 fL (80-100); Mean Platelet Volume 9.2 fL (7.4-10.4); Monocytes # (auto) 0.48 K/uL (0.11-0.59); Monocytes % (auto) 4.4 %; Neutrophils # (auto) 9.32 K/uL (1.4-6.5); Neutrophils % (auto) 85.2 %; Platelet Count 191 K/uL (130-400); RDW Coefficient of Variation 13.9 % (11.5-14.5); RDW Standard Deviation 48.1 fL (36.4-46.3); Red Blood Count 3.75 M/uL (4.2-5.4); White Blood Count 10.94 K/uL (4.8-10.8)
[2018-06-18 18:01] LABS: Alanine Aminotransferase 19 U/L (12-78); Aspartate Aminotransferase 34 U/L (15-37); BUN Creatinine Ratio 7.9 (10-20); Blood Urea Nitrogen 10 mg/dl (7-18); Calcium 8.3 mg/dl (8.5-10.1); Carbon Dioxide 25 mmol/L (21-32); Chloride 108 mmol/L (98-107); Creatinine Clr Calc Pharmacy 45.8 ml/min; Est GFR (African American) 56.9; Est GFR (Non-African American) 49.1; Glucose 86 mg/dl (70-99); Potassium 4.1 mmol/L (3.5-5.1); Sodium 137 mmol/L (136-145)
[2018-06-18 18:03] LABS: Alkaline Phosphatase 60 U/L (45-117); Bilirubin,Total 0.2 mg/dl (0.2-1); Creatine Kinase 138 U/L (26-192); Globulin 3.1 gm/dl (2.5-4.0); Total Protein 6.1 gm/dl (6.4-8.2)
[2018-06-18] MEDS ORDERED: HYDROmorphone INJ 1 MG/ML SYRINGE IV STA ×2 (18:05→19:49)
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
[2018-06-18] MEDS ORDERED: IOVERSOL 100ml IV PRN (18:57)
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
[2018-06-18] MEDS ORDERED: PROCHLORPERAZINE 5 MG in SYRINGE 4 ML IV PRN ×2 (20:34→22:04)
[2018-06-18] MEDS ORDERED: TRAMADOL HCL 50 MG TABLET PO PRN (20:34)
[2018-06-18 20:52] LABS: Appearance Urine Clear (Clear); Bacteria Urine Automated Negative (Negative); Bilirubin Urine Negative (Negative); Blood Urine 1+ (Negative); Color Urine Yellow; Epithelial Cell Urine Auto >30 /lpf (0-5); Glucose Urine UA Negative (Negative); Ketones Urine Negative (Negative); Leukocyte Esterase Urine 1+ (Negative); Nitrite Urine Negative (Negative); Protein Urine Negative (Negative); Specific Gravity Urine > 1.045 (1.000-1.030); Urobilinogen Urine Negative (Negative)
[2018-06-18 21:02] LABS: Troponin I < 0.015 ng/ml (0-0.045)
[2018-06-18] MEDS ORDERED: LIDOCAINE 5% 1 PATCH TD ONE (22:01)
[2018-06-18 22:02] LABS: Bilirubin Direct < 0.1 mg/dl (0-0.2)
[2018-06-18] MEDS ORDERED: SODIUM CHLORIDE 0.9% 1000ML 1,000 ML IV STA (22:04)
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
[2018-06-18] MEDS ORDERED: PROPRANOLOL HCL 10 MG TAB PO PRN (22:39)
[2018-06-18] MEDS: LIDOCAINE 5% 1 PATCH TD SCH (23:43)
[2018-06-19] MEDS: HYDROmorphone INJ 0.5 MG/0.5 ML SYR IV PRN ×6 (00:02→21:13)
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
[2018-06-19 06:16] LABS: Amphetamines+Metham, Urine Neg (Neg); Barbiturates, Urine Neg (Neg); Benzodiazepine, Urine Neg (Neg); Cocaine, Urine Neg (Neg); MDMA (Ecstacy), Urine Pos (Neg); Methadone, Urine Neg (Neg); Opiate, Urine Pos (Neg); Phencyclidine, Urine Neg (Neg)
[2018-06-19 07:35] LABS: Basophils # (auto) 0.01 K/uL (0-0.2); Basophils % (auto) 0.1 %; Eosinophils # (auto) 0.08 K/uL (0-0.5); Eosinophils % (auto) 1.2 %; Hematocrit (blood only) 35.4 % (37-47); Hemoglobin 11.7 g/dL (12.0-16.0); Immature Granulocytes # (auto) 0.01 K/uL (0.00-0.02); Immature Granulocytes % (auto) 0.1 %; Lymphocytes # (auto) 1.45 K/uL (1.2-3.4); Lymphocytes % (auto) 21.3 %; Mean Corpuscular Hgb Conc 33.1 g/dL (32-36); Mean Corpuscular Volume 94.1 fL (80-100); Mean Platelet Volume 9.6 fL (7.4-10.4); Monocytes # (auto) 0.42 K/uL (0.11-0.59); Monocytes % (auto) 6.2 %; Neutrophils # (auto) 4.83 K/uL (1.4-6.5); Neutrophils % (auto) 71.1 %; Platelet Count 168 K/uL (130-400); RDW Coefficient of Variation 13.7 % (11.5-14.5); RDW Standard Deviation 47.3 fL (36.4-46.3); Red Blood Count 3.76 M/uL (4.2-5.4)
[2018-06-19] MEDS: CETIRIZINE HCL 10 MG TABLET PO SCH (07:53)
[2018-06-19] MEDS: LIDOCAINE 5% 1 PATCH TD SCH ×2 (07:53→15:52)
[2018-06-19] MEDS: FLUOXETINE HCL 10 MG CAP PO SCH ×2 (07:54→20:15)
[2018-06-19] MEDS: buPROPion HCl 75 MG TABLET PO SCH ×2 (07:54→20:15)
[2018-06-19] MEDS: PANTOprazole 40 MG TAB PO SCH ×2 (07:54→20:14)
[2018-06-19] MEDS: CYANOCOBALAMIN 500 MCG TABLET (VITAMIN B-12) PO SCH (07:54)
[2018-06-19] MEDS: BusPIRone 15 MG TAB PO SCH ×2 (07:54→20:14)
[2018-06-19] MEDS: HYDROCODONE/ACETAMINOPHEN 7.5/325MG TAB PO PRN ×2 (07:57→13:33)
[2018-06-19 08:05] LABS: Calcium 8.7 mg/dl (8.5-10.1); Est GFR (African American) 63.8; Est GFR (Non-African American) 55.1; Potassium 3.9 mmol/L (3.5-5.1)
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
[2018-06-19] MEDS: DOCUSATE SODIUM 100 MG CAP PO SCH ×2 (09:24→20:14)
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
[2018-06-19] MEDS ORDERED: GADOBUTROL 65ML VIAL IV PRN (19:36)
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
[2018-06-19] MEDS: FERROUS GLUCONATE 324 MG TAB PO SCH (20:14)
[2018-06-19] MEDS: MULTIVITAMIN TAB PO SCH (20:14)
[2018-06-19] MEDS: TRAZODONE HCL 50 MG TAB PO SCH (21:13)
[2018-06-20] MEDS: HYDROmorphone INJ 0.5 MG/0.5 ML SYR IV PRN ×5 (04:02→20:23)
[2018-06-20] MEDS: buPROPion HCl 75 MG TABLET PO SCH ×2 (07:54→21:16)
[2018-06-20] MEDS: FLUOXETINE HCL 10 MG CAP PO SCH ×2 (07:54→20:01)
[2018-06-20] MEDS: BusPIRone 15 MG TAB PO SCH ×2 (07:54→20:01)
[2018-06-20] MEDS: PANTOprazole 40 MG TAB PO SCH ×2 (07:55→20:03)
[2018-06-20] MEDS: CETIRIZINE HCL 10 MG TABLET PO SCH (07:55)
[2018-06-20] MEDS: DOCUSATE SODIUM 100 MG CAP PO SCH ×2 (07:55→20:02)
[2018-06-20] MEDS: LIDOCAINE 5% 1 PATCH TD SCH (08:02)
[2018-06-20 08:06] LABS: Basophils # (auto) 0.02 K/uL (0-0.2); Basophils % (auto) 0.3 %; Eosinophils # (auto) 0.05 K/uL (0-0.5); Eosinophils % (auto) 0.7 %; Hematocrit (blood only) 36.3 % (37-47); Hemoglobin 12.3 g/dL (12.0-16.0); Immature Granulocytes # (auto) 0.01 K/uL (0.00-0.02); Immature Granulocytes % (auto) 0.1 %; Lymphocytes # (auto) 1.62 K/uL (1.2-3.4); Lymphocytes % (auto) 22.1 %; Mean Corpuscular Hgb Conc 33.9 g/dL (32-36); Mean Corpuscular Volume 92.6 fL (80-100); Mean Platelet Volume 9.4 fL (7.4-10.4); Monocytes # (auto) 0.42 K/uL (0.11-0.59); Monocytes % (auto) 5.7 %; Neutrophils # (auto) 5.21 K/uL (1.4-6.5); Neutrophils % (auto) 71.1 %; Platelet Count 161 K/uL (130-400); RDW Coefficient of Variation 13.3 % (11.5-14.5); RDW Standard Deviation 45.3 fL (36.4-46.3); Red Blood Count 3.92 M/uL (4.2-5.4); White Blood Count 7.33 K/uL (4.8-10.8)
[2018-06-20 08:40] LABS: BUN Creatinine Ratio 9.1 (10-20); Calcium 8.9 mg/dl (8.5-10.1); Creatinine Clr Calc Pharmacy 59.4 ml/min; Est GFR (African American) 77.1; Est GFR (Non-African American) 66.5; Potassium 3.8 mmol/L (3.5-5.1)
[2018-06-20] MEDS: HYDROCODONE/ACETAMINOPHEN 7.5/325MG TAB PO PRN ×2 (10:18→14:23)
[2018-06-20] MEDS: POTASSIUM CHLORIDE 10 MEQ TABCR PO SCH (10:39)
--- NOTE | 2018-06-20 11:01 | Orthopedic Progress Note ---
Date of Service June 20, 2018 Assessment & Plan (1) Burst fracture of T12 vertebra: At this time she will be fitted with a TLSO. She is to wear this at all times when out of bed. Once it is in place and fitted would like to obtain standing x-rays of the thoracolumbar spine to assess her fracture alignment. If her alignment is relatively well-maintained she may be able to discharge home. Present on Admission?: Yes Subjective Patient's complaining of pain though it is controlled. She denies any lower extremity numbness or tingling. Physical Exam Physical Exam: On exam she is sitting up in bed. She is neurologically intact. She is comfortable. Results & Data Vital Signs (Past 12 Hours) Vital Signs Temp Pulse Pulse Resp BP Pulse Ox 06/20/18 07:19 89 06/20/18 07:01 36.8 C 88 24 157/101 H 94 06/20/18 03:41 37.4 C 95 H 20 136/80 84 L 06/20/18 01:04 97 H 06/19/18 23:39 37 C 106 H 18 150/71 H 94
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
[2018-06-20] MEDS: TRAZODONE HCL 50 MG TAB PO SCH (19:59)
[2018-06-20] MEDS: CALCIUM 600MG + VIT D 400 IU TAB PO SCH (20:00)
[2018-06-20] MEDS: FERROUS GLUCONATE 324 MG TAB PO SCH (20:02)
[2018-06-20] MEDS: MULTIVITAMIN TAB PO SCH (20:03)
[2018-06-21] MEDS: HYDROCODONE/ACETAMINOPHEN 7.5/325MG TAB PO PRN ×4 (01:28→15:44)
[2018-06-21] MEDS: HYDROmorphone INJ 0.5 MG/0.5 ML SYR IV PRN ×4 (03:09→19:30)
--- NOTE | 2018-06-21 08:05 | Orthopedic Progress Note ---
Date of Service June 21, 2018 Assessment & Plan (1) T12 compression fracture: Patient stable with a T12 burst fracture. Her brace has arrived and will obtain upright x-rays with her in her brace today. If there is no significant translation or kyphosis over the segment from a spine perspective should be safe for home discharge. We will see her films tomorrow morning and make that decision. Otherwise continue GI DVT prophylaxis. Subjective Patient reports she is doing well today. She does have some pain in her back but no numbness or tingling. Her TLSO did arrive and she tried it does fit nicely. She is not yet received her fracture walker boot. She had not EEG as well is an MRI of her brain. She has no other complaints. Physical Exam Physical Exam: On exam she is alert and oriented. She has full strength in both lower extremities. She is in no distress. Her calves are supple nontender her abdomen soft and nontender. Results & Data Vital Signs (Past 12 Hours) Vital Signs Temp Pulse Pulse Resp BP Pulse Ox 06/21/18 07:22 85 06/21/18 03:00 36.6 C 87 17 157/99 H 94 06/20/18 23:15 37.2 C 91 H 17 153/91 H 95 06/20/18 23:00 96 H
[2018-06-21] MEDS: CETIRIZINE HCL 10 MG TABLET PO SCH (08:14)
[2018-06-21] MEDS: CYANOCOBALAMIN 500 MCG TABLET (VITAMIN B-12) PO SCH (08:14)
[2018-06-21] MEDS: BusPIRone 15 MG TAB PO SCH ×2 (08:14→21:15)
[2018-06-21] MEDS: PANTOprazole 40 MG TAB PO SCH ×2 (08:15→21:18)
[2018-06-21] MEDS: POTASSIUM CHLORIDE 10 MEQ TABCR PO SCH (08:15)
[2018-06-21] MEDS: buPROPion HCl 75 MG TABLET PO SCH ×2 (08:15→21:16)
[2018-06-21] MEDS: LIDOCAINE 5% 1 PATCH TD SCH (08:15)
[2018-06-21] MEDS: FLUOXETINE HCL 10 MG CAP PO SCH ×2 (08:15→21:17)
[2018-06-21] MEDS: DOCUSATE SODIUM 100 MG CAP PO SCH ×2 (08:15→21:18)
--- NOTE | 2018-06-21 08:57 | XRay Report ---
XR lumbar spine 2-3V CLINICAL HISTORY: compression fracture, standing in brace COMPARISON STUDY: 06/06/2015, CT scan dated 06/18/2018 FINDINGS: Standing AP and lateral views in a brace are provided for interpretation. There is no signi ficant change in the appearance of the T12 compression fracture demonstrating two thirds loss in heig ht. There are postsurgical changes of an L5-S1 discectomy and interbody fusion. There is a grade 1-2/ 4 spondylolisthesis of L5 on S1. There is mild gaseous prominence of the bowel, likely secondary to a mild ileus. IMPRESSION: 1. No significant change in the T12 compression fracture demonstrating approximately two thirds loss in height. 2. Postsurgical changes the L5-S1 level with grade 1-2/4 spondylolisthesis of L5 on S1 Electronically signed by: Bart Cervantes M.D. 06/21/2018 8:56 AM
[2018-06-21] MEDS: TRAZODONE HCL 50 MG TAB PO SCH (21:15)
[2018-06-21] MEDS: FERROUS GLUCONATE 324 MG TAB PO SCH (21:18)
[2018-06-21] MEDS: MULTIVITAMIN TAB PO SCH (21:18)
[2018-06-21] MEDS: CALCIUM 600MG + VIT D 400 IU TAB PO SCH (21:18)
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
[2018-06-22] MEDS: HYDROmorphone INJ 0.5 MG/0.5 ML SYR IV PRN ×3 (05:43→19:39)
[2018-06-22] MEDS: HYDROCODONE/ACETAMINOPHEN 7.5/325MG TAB PO PRN ×3 (08:30→22:03)
[2018-06-22] MEDS: CETIRIZINE HCL 10 MG TABLET PO SCH (08:31)
[2018-06-22] MEDS: POTASSIUM CHLORIDE 10 MEQ TABCR PO SCH (08:31)
[2018-06-22] MEDS: DOCUSATE SODIUM 100 MG CAP PO SCH ×2 (08:31→19:51)
[2018-06-22] MEDS: buPROPion HCl 75 MG TABLET PO SCH ×2 (08:31→19:48)
[2018-06-22] MEDS: PANTOprazole 40 MG TAB PO SCH ×2 (08:31→19:50)
[2018-06-22] MEDS: FLUOXETINE HCL 10 MG CAP PO SCH ×2 (08:31→19:50)
[2018-06-22] MEDS: BusPIRone 15 MG TAB PO SCH ×2 (08:31→19:49)
[2018-06-22] MEDS: LIDOCAINE 5% 1 PATCH TD SCH ×2 (08:34)
--- NOTE | 2018-06-22 10:25 | Orthopedic Progress Note ---
Date of Service June 22, 2018 Assessment & Plan (1) Burst fracture of T12 vertebra: Patient still has pain and soreness related to her fracture but no radicular or neurologic complaints at this point. I reviewed the x-rays of her standing in her TLSO while there is almost 60% anterior height loss the middle column is maintaining. There is no focal kyphosis at the segment either. She may initiate physical therapy and occupational therapy while in her brace. She is informed that she lives on her own she may need long-term placement for short period of time to get stronger and help her recover. She is to follow-up with her office in approximately 2 weeks from the date of her last x-rays. There is no questions or concerns do not hesitate to contact our practice. Subjective Patient is seen today due to a T12 burst fracture. She has received her TLSO brace when upright films performed yesterday. She reports that she is having significant pain in the back itself but nothing radiating into the ribs or down the legs. She has noted that she has difficulties getting in and out of bed and getting up from a chair with a brace in place. She has no other complaints at this point. Physical Exam Physical Exam: On exam patient is alert and oriented. Her TLSO is in place and well fitting. She has full strength in her lower extremities. Calves are supple nontender. Results & Data Vital Signs (Past 12 Hours) Vital Signs Temp Pulse Pulse Resp BP Pulse Ox 06/22/18 08:00 36.9 C 80 18 158/97 H 92 06/22/18 07:38 84 06/22/18 04:11 36.7 C 82 16 134/84 91 06/22/18 00:09 36.7 C 86 18 134/81 91 06/21/18 23:48 101 H
[2018-06-22 12:55] LABS: Hydrocodone Urine NEGATIVE NG/ML (CUTOFF=50); Hydromor Urine 748 NG/ML (CUTOFF=50); Morphine Urine 2060 NG/ML (CUTOFF=50); Norhydrocodone Conf Ur NEGATIVE NG/ML (CUTOFF=50); Noroxycodone Urine 108 NG/ML (CUTOFF=50); Oxycodone Urine NEGATIVE NG/ML (CUTOFF=50)
[2018-06-22] MEDS ORDERED: AMLODIPINE BESYLATE 5 MG TAB PO ONE (18:05)
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
[2018-06-22] MEDS: TRAZODONE HCL 50 MG TAB PO SCH (19:48)
[2018-06-22] MEDS: MULTIVITAMIN TAB PO SCH (19:51)
[2018-06-22] MEDS: CALCIUM 600MG + VIT D 400 IU TAB PO SCH (19:51)
[2018-06-22] MEDS: FERROUS GLUCONATE 324 MG TAB PO SCH (19:51)
[2018-06-23] MEDS: HYDROmorphone INJ 0.5 MG/0.5 ML SYR IV PRN ×3 (05:04→17:22)
[2018-06-23] MEDS: HYDROCODONE/ACETAMINOPHEN 7.5/325MG TAB PO PRN ×2 (07:59→11:52)
[2018-06-23] MEDS: POTASSIUM CHLORIDE 10 MEQ TABCR PO SCH (08:24)
[2018-06-23] MEDS: FLUOXETINE HCL 10 MG CAP PO SCH ×2 (08:24→20:57)
[2018-06-23] MEDS: CETIRIZINE HCL 10 MG TABLET PO SCH (08:24)
[2018-06-23] MEDS: CYANOCOBALAMIN 500 MCG TABLET (VITAMIN B-12) PO SCH (08:24)
[2018-06-23] MEDS: buPROPion HCl 75 MG TABLET PO SCH ×2 (08:24→20:58)
[2018-06-23] MEDS: BusPIRone 15 MG TAB PO SCH ×2 (08:25→20:59)
[2018-06-23] MEDS: DOCUSATE SODIUM 100 MG CAP PO SCH ×2 (08:25→20:56)
[2018-06-23] MEDS: PANTOprazole 40 MG TAB PO SCH ×2 (08:25→20:57)
[2018-06-23] MEDS: AMLODIPINE BESYLATE 5 MG TAB PO SCH (08:26)
[2018-06-23] MEDS: LIDOCAINE 5% 1 PATCH TD SCH (08:26)
[2018-06-23] MEDS: DOCUSATE SODIUM/SENNA 50/8.6MG TAB PO SCH (11:18)
[2018-06-23] MEDS ORDERED: predniSONE 20 MG TAB PO ONE (12:00)
[2018-06-23 13:13] LABS: D Dimer 2960 ug/L FEU (0-500)
[2018-06-23 14:22] LABS: Basophils # (auto) 0.01 K/uL (0-0.2); Basophils % (auto) 0.2 %; Eosinophils # (auto) 0.12 K/uL (0-0.5); Hematocrit (blood only) 36.3 % (37-47); Hemoglobin 11.9 g/dL (12.0-16.0); Immature Granulocytes # (auto) 0.01 K/uL (0.00-0.02); Immature Granulocytes % (auto) 0.2 %; Lymphocytes # (auto) 1.07 K/uL (1.2-3.4); Mean Corpuscular Hgb Conc 32.8 g/dL (32-36); Mean Corpuscular Volume 93.6 fL (80-100); Mean Platelet Volume 9.2 fL (7.4-10.4); Monocytes % (auto) 6.7 %; Neutrophils # (auto) 4.32 K/uL (1.4-6.5); Neutrophils % (auto) 72.9 %; Platelet Count 251 K/uL (130-400); RDW Coefficient of Variation 13.7 % (11.5-14.5); RDW Standard Deviation 46.8 fL (36.4-46.3); Red Blood Count 3.88 M/uL (4.2-5.4); White Blood Count 5.93 K/uL (4.8-10.8)
[2018-06-23 14:30] LABS: BUN Creatinine Ratio 6.8 (10-20); Calcium 9.2 mg/dl (8.5-10.1); Est GFR (African American) 69.9; Est GFR (Non-African American) 60.3; Potassium 4.3 mmol/L (3.5-5.1)
[2018-06-23] MEDS ORDERED: OPTIRAY 320 125ml IV PRN (14:47)
[2018-06-23] MEDS: SODIUM CHLORIDE 0.9% 1000ML 1,000 ML IV SCH (14:53)
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
--- NOTE | 2018-06-23 15:05 | CT Scan Report ---
CHEST CTA for PULMONARY ARTERIES CT DOSE: 284.91 mGy.cm HISTORY: Pulmonary embolus. Shortness of breath. TECHNIQUE: Multiaxial CT images of the chest were performed following the intravenous administration of contrast to evaluate the pulmonary arteries. Maximal intensity projection images were also obtaine d. A dose lowering technique was utilized adhering to the principles of ALARA. COMPARISON STUDY: Chest CT 06/18/2018. FINDINGS: Normal caliber thoracic aorta with no evidence for dissection. The heart is normal in size. Trace right pleural effusion. Mildly distended and fluid-filled esophagus, unchanged. No pericardial effusion. Bilateral breast augmentation is noted. The visualized liver and spleen are unremarkable. Evidence for prior gastric bypass. No mediastinal or hilar lymphadenopathy. No suspicious lytic or bl astic osseous lesions. No pneumothorax. The central airways are patent. Bibasilar linear densities ar e new from the prior study. This favors subsegmental atelectasis. No filling defects within the pulmo nary arteries to suggest pulmonary embolus. IMPRESSION: 1. No evidence for pulmonary embolus. 2. Trace right pleural effusion. 3. Mildly distended and fluid-filled esophagus, unchanged. 4. Bibasilar linear densities which are new from the prior study. This favors subsegmental atelectasi s. A pneumonia could also have a similar appearance in the appropriate clinical setting but is consid ered less likely. Electronically signed by: Wilder Lee M.D. 06/23/2018 3:04 PM
--- NOTE | 2018-06-23 17:15 | Ultrasound Report ---
BILATERAL LOWER EXTREMITY VENOUS DOPPLER HISTORY: Leg swelling. Shortness of breath. Assess for DVT. COMPARISON STUDY: None. FINDINGS: There is normal compressibility, flow, and augmentation within the bilateral lower extremit y deep venous systems. IMPRESSION: No DVT within the right or left lower extremity. Electronically signed by: Wilder Lee M.D. 06/23/2018 5:14 PM
[2018-06-23] MEDS: POLYETHYLENE (MIRALAX) 17 GM PACK PO PRN (17:22)
[2018-06-23 19:46] LABS: Prothrombin Time 10.3 Seconds (9.0-12.0)
[2018-06-23] MEDS ORDERED: HYDROmorphone INJ 0.5 MG/0.5 ML SYR IV STA (20:36)
[2018-06-23] MEDS: CALCIUM 600MG + VIT D 400 IU TAB PO SCH (20:56)
[2018-06-23] MEDS: TRAZODONE HCL 50 MG TAB PO SCH (20:58)
[2018-06-23] MEDS: FERROUS GLUCONATE 324 MG TAB PO SCH (20:59)
[2018-06-23] MEDS: MULTIVITAMIN TAB PO SCH (20:59)
[2018-06-23] MEDS ORDERED: ENOXAPARIN INJ 40 MG/0.4 ML SYR SQ SCH (21:00)
[2018-06-24] MEDS: SODIUM CHLORIDE 0.9% 1000ML 1,000 ML IV SCH (03:08)
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
[2018-06-24] MEDS: HYDROCODONE/ACETAMINOPHEN 7.5/325MG TAB PO PRN (07:47)
[2018-06-24] MEDS: DOCUSATE SODIUM/SENNA 50/8.6MG TAB PO SCH (09:07)
[2018-06-24] MEDS: AMLODIPINE BESYLATE 5 MG TAB PO SCH (09:08)
[2018-06-24] MEDS: POTASSIUM CHLORIDE 10 MEQ TABCR PO SCH (09:08)
[2018-06-24] MEDS: DOCUSATE SODIUM 100 MG CAP PO SCH (09:08)
[2018-06-24] MEDS: FLUOXETINE HCL 10 MG CAP PO SCH (09:08)
[2018-06-24] MEDS: LIDOCAINE 5% 1 PATCH TD SCH (09:09)
[2018-06-24] MEDS: CETIRIZINE HCL 10 MG TABLET PO SCH (09:09)
[2018-06-24] MEDS: PANTOprazole 40 MG TAB PO SCH (09:09)
[2018-06-24] MEDS: BusPIRone 15 MG TAB PO SCH (09:09)
[2018-06-24] MEDS: buPROPion HCl 75 MG TABLET PO SCH (09:10)
[2018-06-24] MEDS: HYDROmorphone INJ 0.5 MG/0.5 ML SYR IV PRN ×3 (09:17→16:29)
[2018-06-24] MEDS: POLYETHYLENE (MIRALAX) 17 GM PACK PO PRN (12:55)
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
[2018-06-24] MEDS ORDERED: AMLODIPINE BESYLATE 5 MG TAB PO ONE (18:15)
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
== END 2018-06-24 18:50 | disposition home or self-care (01) | DRG 552 ==
LOC: 2W 16:22 → ED 16:22 → SUATTDRO 22:02 → 2W 22:14

== ENCOUNTER 2019-05-06 15:18 | Inpatient (IN) ==
[2019-05-06 15:30] VITALS: O2SAT 98
[2019-05-06 16:16] LABS: Appearance Urine Clear (Clear); Bilirubin Urine Negative (Negative); Blood Urine Negative (Negative); Color Urine Yellow; Glucose Urine UA Negative (Negative); Ketones Urine Negative (Negative); Leukocyte Esterase Urine Trace (Negative); Nitrite Urine Negative (Negative); Protein Urine Negative (Negative); Specific Gravity Urine 1.015 (1.000-1.030); Urobilinogen Urine Negative (Negative); pH Urine 5.5 (4.5-7.5)
[2019-05-06 16:32] LABS: Bacteria Urine 1+ (Negative); RBC Urine 0-4 /hpf (0-4)
[2019-05-06 16:46] LABS: Amphetamines+Metham, Urine Neg (Neg); Barbiturates, Urine Neg (Neg); Benzodiazepine, Urine Neg (Neg); Cocaine, Urine Neg (Neg); MDMA (Ecstacy), Urine Pos (Neg); Methadone, Urine Neg (Neg); Opiate, Urine Neg (Neg); Phencyclidine, Urine Neg (Neg)
[2019-05-06 16:55] LABS: Basophils # (auto) 0.01 K/uL (0-0.2); Basophils % (auto) 0.2 %; Eosinophils % (auto) 2.2 %; Hemoglobin 12.6 g/dL (12.0-16.0); Lymphocytes # (auto) 1.88 K/uL (1.2-3.4); Lymphocytes % (auto) 40.9 %; Mean Corpuscular Hemoglobin 30.7 pg (25-34); Mean Corpuscular Hgb Conc 32.3 g/dL (32-36); Mean Corpuscular Volume 94.9 fL (80-100); Monocytes # (auto) 0.35 K/uL (0.11-0.59); Monocytes % (auto) 7.6 %; Neutrophils # (auto) 2.26 K/uL (1.4-6.5); Neutrophils % (auto) 49.1 %; Platelet Count 239 K/uL (130-400); RDW Coefficient of Variation 14.3 % (11.5-14.5); RDW Standard Deviation 49.8 fL (36.4-46.3); Red Blood Count 4.11 M/uL (4.2-5.4)
[2019-05-06 17:14] LABS: Alanine Aminotransferase 32 U/L (12-78); Albumin Level 3.4 gm/dl (3.4-5.0); Aspartate Aminotransferase 39 U/L (15-37); BUN Creatinine Ratio 7.2 (10-20); Blood Urea Nitrogen 9 mg/dl (7-18); Carbon Dioxide 25 mmol/L (21-32); Chloride 108 mmol/L (98-107); Est GFR (African American) 53.4; Glucose 80 mg/dl (70-99); Potassium 4.4 mmol/L (3.5-5.1); Sodium 138 mmol/L (136-145)
[2019-05-06 17:16] LABS: Acetaminophen < 2 ug/ml (10-30); Salicylate < 1.7 mg/dl (2.8-20)
[2019-05-06 17:24] LABS: Albumin Globulin Ratio 0.9 (0.9-2); Alkaline Phosphatase 69 U/L (45-117); Bilirubin,Total 0.2 mg/dl (0.2-1); Globulin 3.8 gm/dl (2.5-4.0); Thyroid Stimulating Hormone 0.883 uIu/ml (0.300-4.500); Total Protein 7.2 gm/dl (6.4-8.2)
--- NOTE | 2019-05-06 17:44 | Emergency Department Note ---
Entered by Villa Cordero acting as a scribe for History of Present Illness General Chief complaint: Mental Health Evaluation Stated complaint: MHE - REF BY DR Rivera Seen by Provider: 05/06/19 15:45 Source: patient History of Present Illness Onset (ago): day(s) (yesterday) Location: head Pain Consistency: + other (worsening) Quality: + other (depression) Associated symptoms: + other (Positive for not eating or sleeping much. Negative for fever, vomiting, CP, and abdominal pain.) The patient is a 59 year old female who presents to the emergency department with complaints of worsening depression beginning 2 days ago. The patient states that she has a history of depression. She notes she had to unexpectedly put down her dog 2 days ago, and she reports that her depression has worsened since then. The patient states that she is having passive thoughts about dying. She notes t hat she has not tried to kill herself in the past, and she reports that she could not kill herself because she could never do that to her kids or grandkids. The patient states that she was seen by her psychiatrist today and told to come to the emergency department so she did not act impulsively on her thoughts. She notes that she has not been eating or sleeping much. She reports that she has been taking her medication as prescribed, and she denies any alcohol and drug use. She denies any fever, vomiting, CP, and abdominal pain. The patient states that she does not have any other medical problems. Home Medications Home Medications Medication Instructions Recorded Confirmed Type calcium citrate-vitamin D3 1 tab PO QPM 03/30/18 05/06/19 History [Calcium Citrate + D] hydroxyzine pamoate 25 mg PO DIRECTED PRN 03/30/18 05/06/19 History multivitamin 1 tab PO QPM 03/30/18 05/06/19 History potassium chloride 10 meq PO QAM 03/30/18 05/06/19 History propranolol 10 mg PO DAILY PRN 03/30/18 05/06/19 History bupropion HCl 150 mg PO BID 06/18/18 05/06/19 History buspirone 30 mg PO BID 06/18/18 05/06/19 History fluoxetine 20 mg PO DAILY 04/03/19 05/06/19 History fluoxetine 80 mg PO DAILY 04/03/19 05/06/19 History hydrocodone-acetaminophen 1 tab PO BID PRN 04/03/19 05/06/19 History trazodone 100 mg PO HS 04/03/19 05/06/19 History iron 159 mg PO DAILY 05/06/19 05/06/19 History pantoprazole 40 mg PO BID 05/06/19 05/06/19 History Allergies Allergy/AdvReac Type Severity Reaction Status Date / Time Penicillins Allergy Unknown Unknown Verified 04/03/19 14:30 Sulfa (Sulfonamide Allergy Unknown Unknown Verified 04/03/19 14:30 Antibiotics) Uncoded Nonscreenable Allergy Unknown DERMABOND- Uncoded 04/03/19 14:30 Allergen RASH Past Med/Surg History Medical History Depression HLD (hyperlipidemia) (Chronic) HTN (hypertension) (Chronic) T12 compression fracture (Acute) Family History Other No pertinent family history Social History Preferred Language: Micronesian Communication Ability: Effective Inventory Taker Required: No Beliefs That Will Affect Care: None Current Living Situation: Spouse Feels Safe at Home: Yes Smoking Status: Former smoker Hx Alcohol Use: Yes Alcohol type: hard liquor Hx Substance Use: No Review of Systems See HPI for pertinent positives & negatives. and A total of 10 systems reviewed and were otherwise negative Physical Exam Vital Signs Vital Signs - 24 hr 05/06/19 15:24 Temperature 36.6 C Temperature Source Oral Pulse Rate 86 Respiratory Rate 19 Respiratory Effort / Characteristics Non-Labored Respiratory Depth Normal Respiratory Pattern Regular Blood Pressure 168/108 H Blood Pressure Mean 128 Blood Pressure Position Sitting Pulse Oximetry 98 Oxygen Delivery Method Room Air Sepsis Recent Fever Within 48 Hours No Sepsis Action Taken by Nursing No Action Required Constitutional: Vital signs reviewed. Eyes: Pupils are equal round reactive to light. Conjunctiva are noninjected. ENT: Pharynx is clear without erythema or exudate. Mucous membranes are moist. Neck supple without meningeal signs. Respiratory: Clear to auscultation bilaterally. Breath sounds are equal bilaterally. Cardiovascular: Regular rate and rhythm. No rubs or gallops. GI: Soft, nondistended and nontender. Bowel sounds are present. Musculoskeletal: No peripheral edema. No lower extremity tenderness. Integumentary: No cyanosis. Neurological: The patient is awake and alert. No focal deficits. Psychiatric: Depressed affect, not tearful. Course Course 1547: The patient was evaluated in room A6. A complete history and physical exam was performed. 1619: The patient is medically cleared. I spoke to the nurse case manager. 175: The patient was accepted to [address] [place] [address]. She will be evaluated for further management and care. Administered Medications Hydrocodone Bitart/Acetaminophen ([place] 7.5/325mg) 1 tab PO BID PRN PRN Reason: Pain Stop: 05/20/19 17:59 Last Admin: 05/06/19 21:18 Dose: 1 tab Documented by: [id number] Bupropion HCl (Wellbutrin) 150 mg PO BID CHLOÉ Stop: 06/05/19 20:59 Last Admin: 05/06/19 21:15 Dose: 150 mg Documented by: [id number] Buspirone HCl (Buspar) 30 mg PO BID CHLOÉ Stop: 06/05/19 20:59 Last Admin: 05/06/19 21:11 Dose: 30 mg Documented by: [id number] Multivitamins (Multivitamin Tab) 1 tab PO QPM CHLOÉ Stop: 06/05/19 20:59 Last Admin: 05/06/19 21:13 Dose: 1 tab Documented by: [id number] Multivitamins/Minerals (Caltrate Plus) 1 tab PO QPM CHLOÉ Stop: 06/05/19 20:59 Last Admin: 05/06/19 21:13 Dose: 1 tab Documented by: [id number] Pantoprazole Sodium (Protonix) 40 mg PO BID CHLOÉ Stop: 06/05/19 20:59 Last Admin: 05/06/19 21:14 Dose: 40 mg Documented by: [id number] Trazodone HCl (Desyrel) 100 mg PO HS CHLOÉ Stop: 06/05/19 20:59 Last Admin: 05/06/19 21:17 Dose: 100 mg Documented by: [id number] Medical Decision Making Differential Diagnosis Differential diagnoses include: mod disorder, suicidal ideations, anxiety, adjustment disorder, and chronic pain syndrome. Medical Records Attestation: I reviewed the patient's medical records. I did perform a limited focused review of portions of the patient's old chart on the electronic medical record. The patient was last seen in March,, for a headache. Home Medications Current Medication List: was personally reviewed by me Laboratory Data Attestation: I reviewed the patient's lab results. Result diagrams: 05/06/19 16:40 05/06/19 16:40 Lab Results 05/06/19 05/06/19 05/06/19 Range/Units 15:35 15:35 16:40 WBC (4.8-10.8) K/uL RBC (4.2-5.4) M/uL Hgb (12.0-16.0) g/dL Hct (37-47) % MCV (80-100) fL MCH (25-34) pg MCHC (32-36) g/dL RDW Std Deviation (36.4-46.3) fL RDW Coeff of Kiara (11.5-14.5) % Plt Count (130-400) K/uL MPV (7.4-10.4) fL Immature Gran % (Auto) % Neut % (Auto) % Lymph % (Auto) % [place] % (Auto) % Eos % (Auto) % Baso % (Auto) % Immature Gran # (Auto) (0.00-0.02) K/uL Neut # (Auto) (1.4-6.5) K/uL Lymph # (Auto) (1.2-3.4) K/uL [place] # (Auto) (0.11-0.59) K/uL Eos # (Auto) (0-0.5) K/uL Baso # (Auto) (0-0.2) K/uL Sodium 138 (136-145) mmol/L Potassium 4.4 (3.5-5.1) mmol/L Chloride 108 H (98-107) mmol/L Carbon Dioxide 25 (21-32) mmol/L Anion Gap 5.0 (3-11) BUN 9 (7-18) mg/dl Creatinine 1.28 H (0.6-1.2) mg/dl Est Cr Clr Drug Dosing Not Reportable Est GFR ( Amer) 53.4 Est GFR (Non-Af Amer) 46.0 BUN/Creatinine Ratio 7.2 L (10-20) Glucose 80 (70-99) mg/dl Calcium 9.0 (8.5-10.1) mg/dl Total Bilirubin 0.2 (0.2-1) mg/dl AST 39 H (15-37) U/L ALT 32 (12-78) U/L Alkaline Phosphatase 69 (45-117) U/L Total Protein 7.2 (6.4-8.2) gm/dl Albumin 3.4 (3.4-5.0) gm/dl Globulin 3.8 (2.5-4.0) gm/dl Albumin/Globulin Ratio 0.9 (0.9-2) TSH 0.883 (0.300-4.500) uIu/ml Urine Color Yellow Urine Appearance Clear (Clear) Urine pH 5.5 (4.5-7.5) Ur Specific [place] 1.015 (1.000-1.030) Urine Protein Negative (Negative) Urine Glucose (UA) Negative (Negative) Urine Ketones Negative (Negative) Urine Blood Negative (Negative) Urine Nitrite Negative (Negative) Urine Bilirubin Negative (Negative) Urine Urobilinogen Negative (Negative) Ur Leukocyte Esterase Trace H (Negative) Urine RBC 0-4 (0-4) /hpf Urine WBC 5-10 H (0-5) /hpf Ur Epithelial Cells 5-10 H (0-5) /lpf Urine Bacteria 1+ H (Negative) Salicylates (2.8-20) mg/dl Urine Opiates Screen Neg (Neg) Ur Methadone, Qual Neg (Neg) Acetaminophen (10-30) ug/ml Urine Barbiturates Neg (Neg) Ur Phencyclidine (PCP) Neg (Neg) U Amphetamin/Meth Scrn Neg (Neg) MDMA (Ecstasy) Screen Pos H (Neg) U Benzodiazepines Scrn Neg (Neg) Ur Cocaine Metabolite Neg (Neg) U Marijuana (THC) Screen Pos H (Neg) Ethyl Alcohol mg/dL (0-3) mg/dl 05/06/19 05/06/19 05/06/19 Range/Units 16:40 16:40 16:40 WBC 4.60 L (4.8-10.8) K/uL RBC 4.11 L (4.2-5.4) M/uL Hgb 12.6 (12.0-16.0) g/dL Hct 39.0 (37-47) % MCV 94.9 (80-100) fL MCH 30.7 (25-34) pg MCHC 32.3 (32-36) g/dL RDW Std Deviation 49.8 H (36.4-46.3) fL RDW Coeff of Kiara 14.3 (11.5-14.5) % Plt Count 239 (130-400) K/uL MPV 9.0 (7.4-10.4) fL Immature Gran % (Auto) 0.0 % Neut % (Auto) 49.1 % Lymph % (Auto) 40.9 % [place] % (Auto) 7.6 % Eos % (Auto) 2.2 % Baso % (Auto) 0.2 % Immature Gran # (Auto) 0.00 (0.00-0.02) K/uL Neut # (Auto) 2.26 (1.4-6.5) K/uL Lymph # (Auto) 1.88 (1.2-3.4) K/uL [place] # (Auto) 0.35 (0.11-0.59) K/uL Eos # (Auto) 0.10 (0-0.5) K/uL Baso # (Auto) 0.01 (0-0.2) K/uL Sodium (136-145) mmol/L Potassium (3.5-5.1) mmol/L Chloride (98-107) mmol/L Carbon Dioxide (21-32) mmol/L Anion Gap (3-11) BUN (7-18) mg/dl Creatinine (0.6-1.2) mg/dl Est Cr Clr Drug Dosing Est GFR ( Amer) Est GFR (Non-Af Amer) BUN/Creatinine Ratio (10-20) Glucose (70-99) mg/dl Calcium (8.5-10.1) mg/dl Total Bilirubin (0.2-1) mg/dl AST (15-37) U/L ALT (12-78) U/L Alkaline Phosphatase (45-117) U/L Total Protein (6.4-8.2) gm/dl Albumin (3.4-5.0) gm/dl Globulin (2.5-4.0) gm/dl Albumin/Globulin Ratio (0.9-2) TSH (0.300-4.500) uIu/ml Urine Color Urine Appearance (Clear) Urine pH (4.5-7.5) Ur Specific [place] (1.000-1.030) Urine Protein (Negative) Urine Glucose (UA) (Negative) Urine Ketones (Negative) Urine Blood (Negative) Urine Nitrite (Negative) Urine Bilirubin (Negative) Urine Urobilinogen (Negative) Ur Leukocyte Esterase (Negative) Urine RBC (0-4) /hpf Urine WBC (0-5) /hpf Ur Epithelial Cells (0-5) /lpf Urine Bacteria (Negative) Salicylates < 1.7 L (2.8-20) mg/dl Urine Opiates Screen (Neg) Ur Methadone, Qual (Neg) Acetaminophen < 2 L (10-30) ug/ml Urine Barbiturates (Neg) Ur Phencyclidine (PCP) (Neg) U Amphetamin/Meth Scrn (Neg) MDMA (Ecstasy) Screen (Neg) U Benzodiazepines Scrn (Neg) Ur Cocaine Metabolite (Neg) U Marijuana (THC) Screen (Neg) Ethyl Alcohol mg/dL < 3.0 (0-3) mg/dl Blood Pressure Blood Pressure Findings: Elevated blood pressure Blood Pressure Disposition: Referred to patients primary care provider JARED Concepcion I did evaluate the patient as noted above. The patient was sent here by her [facility] chiatrist for inpatient psychiatric care. The patient unexpectedly had to put her dog down 2 days ago and she has not been coping well at home. She has had suicidal thoughts. Normally she would not kill her self because of her children and grandchildren but her psychiatrist was concerned that she may act impulsively as she is not doing well since the of her pet. I did order a urine analysis. I did order and review the patient's blood work as noted in the electronic medical record. She has mild leukopenia on her CBC but otherwise no anemia or thrombocytopenia. Creatinine is slightly elevated at 1.28. Otherwise her labs are unremarkable. I did medically clear the patient. The patient was evaluated by the mental health nurse case manager for placement into an inpatient facility. She was [facility] by [facility]. The patient was admitted to the [facility] for inpatient psychiatric care. Impression & Plan Mood disorder, Suicidal ideations Discharge Plan Visit Data *Final* Discharge Date/Time: 05/06/19 18:37 Chief Complaint: Mental Health Evaluation Stated Complaint: MHE - REF BY DR CAMERON Provider: Romulo Mace Discharge Problem: Mood disorder, Suicidal ideations Patient Disposition: Admitted As Inpatient Discharge Instructions Interventions: ED Discharge Assessment Last Done: 05/06/19 18:37 The scribe's documentation has been prepared under my direction and personally reviewed by me in its entirety. I confirm that the note above accurately reflects all work, treatment, procedures, and medical decision making performed by me.
[2019-05-06] MEDS ORDERED: ALUMINUM/MAGNESIUM SUSP 30 ML UDC PO PRN (17:55)
[2019-05-06] MEDS ORDERED: MAGNESIUM HYDROXIDE SUSP 30 ML UDC PO PRN (17:55)
[2019-05-06] MEDS ORDERED: ACETAMINOPHEN 325 MG TAB PO PRN (17:55)
[2019-05-06] MEDS ORDERED: SODIUM CHLORIDE 0.65% NA SOLN 45 ML (OCEAN) PRN (17:55)
[2019-05-06] MEDS ORDERED: BISMUTH SUBSALICYLATE PER ML OMNICELL CHARGE PO PRN (17:55)
[2019-05-06] MEDS ORDERED: PROPRANOLOL HCL 10 MG TAB PO PRN (18:00)
[2019-05-06] MEDS: BusPIRone 15 MG TAB PO SCH (21:11)
[2019-05-06] MEDS: CALCIUM 600MG + VIT D 400 IU TAB PO SCH (21:13)
[2019-05-06] MEDS: MULTIVITAMIN TAB PO SCH (21:13)
[2019-05-06] MEDS: PANTOprazole 40 MG TAB PO SCH (21:14)
[2019-05-06] MEDS: buPROPion HCl 75 MG TABLET PO SCH (21:15)
[2019-05-06] MEDS: TRAZODONE HCL 100 MG TAB PO SCH (21:17)
[2019-05-06] MEDS: HYDROCODONE/ACETAMINOPHEN 7.5/325MG TAB PO PRN (21:18)
[2019-05-07] MEDS ORDERED: FLUOXETINE HCL 20 MG CAP PO ONE ×2 (09:00→11:27)
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
[2019-05-07] MEDS: BusPIRone 15 MG TAB PO SCH ×2 (09:10→18:17)
[2019-05-07] MEDS: POTASSIUM CHLORIDE 10 MEQ TABCR PO SCH (09:10)
[2019-05-07] MEDS: FERROUS GLUCONATE 324 MG TAB PO SCH (09:10)
[2019-05-07] MEDS: PANTOprazole 40 MG TAB PO SCH ×2 (09:12→18:17)
[2019-05-07] MEDS: CYANOCOBALAMIN 500 MCG TABLET (VITAMIN B-12) PO SCH ×2 (09:12→09:28)
[2019-05-07] MEDS: ATORVASTATIN 20 MG TAB PO SCH ×2 (09:12→09:27)
[2019-05-07] MEDS: buPROPion HCl 75 MG TABLET PO SCH ×2 (09:14→17:17)
[2019-05-07] MEDS: HYDROCODONE/ACETAMINOPHEN 7.5/325MG TAB PO PRN (09:45)
[2019-05-07] MEDS ORDERED: DULOXETINE HCL 20 MG CAP PO ONE (11:55)
[2019-05-07] MEDS ORDERED: BACITRACIN OINT 15 GM TUBE EXT PRN (14:51)
[2019-05-07] MEDS: PROPRANOLOL HCL 10 MG TAB PO PRN (17:13)
[2019-05-07] MEDS: TRAZODONE HCL 100 MG TAB PO SCH (21:14)
[2019-05-07] MEDS: CALCIUM 600MG + VIT D 400 IU TAB PO SCH (21:14)
[2019-05-07] MEDS: MULTIVITAMIN TAB PO SCH (21:14)
[2019-05-08 07:08] VITALS: TEMP 97.9
[2019-05-08] MEDS: BusPIRone 15 MG TAB PO SCH ×2 (08:50→16:58)
[2019-05-08] MEDS: FERROUS GLUCONATE 324 MG TAB PO SCH (08:51)
[2019-05-08] MEDS: PANTOprazole 40 MG TAB PO SCH ×2 (08:51→16:59)
[2019-05-08] MEDS: POTASSIUM CHLORIDE 10 MEQ TABCR PO SCH (08:51)
[2019-05-08] MEDS: buPROPion HCl 75 MG TABLET PO SCH ×2 (08:51→16:59)
[2019-05-08] MEDS: ATORVASTATIN 20 MG TAB PO SCH (08:59)
[2019-05-08] MEDS ORDERED: DULOXETINE HCL 30 MG CAP PO SCH (09:00)
[2019-05-08] MEDS ORDERED: FLUOXETINE HCL 20 MG CAP PO SCH ×2 (09:00)
[2019-05-08] MEDS ORDERED: HYDROCODONE/ACETAMINOPHEN 10/325 TAB PO PRN (09:26)
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
[2019-05-08] MEDS: PROPRANOLOL HCL 10 MG TAB PO PRN ×2 (14:26→22:45)
[2019-05-08] MEDS: MULTIVITAMIN TAB PO SCH (22:00)
[2019-05-08] MEDS: CALCIUM 600MG + VIT D 400 IU TAB PO SCH (22:01)
[2019-05-08] MEDS: TRAZODONE HCL 100 MG TAB PO SCH (22:01)
[2019-05-09] MEDS: POTASSIUM CHLORIDE 10 MEQ TABCR PO SCH (08:40)
[2019-05-09] MEDS: BusPIRone 15 MG TAB PO SCH ×2 (08:40→17:23)
[2019-05-09] MEDS: FERROUS GLUCONATE 324 MG TAB PO SCH (08:40)
[2019-05-09] MEDS: buPROPion HCl 75 MG TABLET PO SCH ×2 (08:41→17:23)
[2019-05-09] MEDS: CYANOCOBALAMIN 500 MCG TABLET (VITAMIN B-12) PO SCH ×2 (08:41→08:46)
[2019-05-09] MEDS: PANTOprazole 40 MG TAB PO SCH ×2 (08:41→17:23)
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
[2019-05-09] MEDS ORDERED: DULOXETINE HCL 20 MG CAP PO SCH (09:00)
[2019-05-09] MEDS: HYDROCODONE/ACETAMINOPHEN 10/325 TAB PO PRN (20:00)
[2019-05-09] MEDS: MULTIVITAMIN TAB PO SCH (22:41)
[2019-05-09] MEDS: TRAZODONE HCL 100 MG TAB PO SCH (22:41)
[2019-05-09] MEDS: CALCIUM 600MG + VIT D 400 IU TAB PO SCH (22:41)
[2019-05-09] MEDS: PROPRANOLOL HCL 10 MG TAB PO PRN (22:42)
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
[2019-05-10] MEDS: BusPIRone 15 MG TAB PO SCH ×2 (09:03→17:15)
[2019-05-10] MEDS: PROPRANOLOL HCL 10 MG TAB PO SCH (09:04)
[2019-05-10] MEDS: DULOXETINE HCL 60 MG CAP PO SCH (09:04)
[2019-05-10] MEDS: POTASSIUM CHLORIDE 10 MEQ TABCR PO SCH (09:04)
[2019-05-10] MEDS: PANTOprazole 40 MG TAB PO SCH ×2 (09:04→17:15)
[2019-05-10] MEDS: FERROUS GLUCONATE 324 MG TAB PO SCH (09:04)
[2019-05-10] MEDS: buPROPion HCl 75 MG TABLET PO SCH ×2 (09:05→17:15)
[2019-05-10] MEDS: HYDROCODONE/ACETAMINOPHEN 10/325 TAB PO PRN (09:39)
[2019-05-10] MEDS ORDERED: TROLAMINE SALICYLATE 10% CRM 255 APPLN/85 GM TUBE EXT PRN (13:58)
[2019-05-10] MEDS: CALCIUM 600MG + VIT D 400 IU TAB PO SCH (22:29)
[2019-05-10] MEDS: TRAZODONE HCL 100 MG TAB PO SCH (22:29)
[2019-05-10] MEDS: MULTIVITAMIN TAB PO SCH (22:29)
[2019-05-10] MEDS: PROPRANOLOL HCL 10 MG TAB PO PRN (22:32)
[2019-05-11] MEDS: DULOXETINE HCL 60 MG CAP PO SCH (08:33)
[2019-05-11] MEDS: FERROUS GLUCONATE 324 MG TAB PO SCH (08:33)
[2019-05-11] MEDS: BusPIRone 15 MG TAB PO SCH (08:33)
[2019-05-11] MEDS: buPROPion HCl 75 MG TABLET PO SCH (08:34)
[2019-05-11] MEDS: POTASSIUM CHLORIDE 10 MEQ TABCR PO SCH (08:34)
[2019-05-11] MEDS: PANTOprazole 40 MG TAB PO SCH (08:34)
[2019-05-11] MEDS: PROPRANOLOL HCL 10 MG TAB PO SCH (08:34)
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
[2019-05-11 10:16] VITALS: BP 121/81; PULSE 86
[2019-05-11 10:45] LABS: MDA negative; MDEA negative; MDMA (Ecstasy) Urine, Confirm negative; Marijuana Quant, GCMS Urine 160 ng/mL (<5)
== END 2019-05-11 12:17 | disposition home or self-care (01) | DRG 885 ==
LOC: ED 15:18 → 3S 17:56 → SUATTDRO 17:56 → 3S 18:37

== ENCOUNTER 2021-09-15 15:21 | Observation (INO) ==
[2021-09-15] MEDS ORDERED: SODIUM CHLORIDE 0.9% 1000ML 1,000 ML IV STA (15:59)
[2021-09-15 16:11] LABS: Basophils # (auto) 0.03 K/uL (0-0.2); Basophils % (auto) 0.4 %; Eosinophils # (auto) 0.09 K/uL (0-0.50); Eosinophils % (auto) 1.3 %; Hematocrit (blood only) 42.1 % (34.1-44.9); Hemoglobin 14.1 g/dl (12.0-16.0); Immature Granulocytes # (auto) 0.04 K/uL (0.00-0.02); Immature Granulocytes % (auto) 0.6 %; Lymphocytes # (auto) 2.47 K/uL (1.2-3.4); Lymphocytes % (auto) 35.2 %; Mean Corpuscular Hemoglobin 30.8 pg (25.0-34.0); Mean Corpuscular Hgb Conc 33.5 g/dL (32.0-36.0); Mean Corpuscular Volume 91.9 fL (80.0-100.0); Monocytes # (auto) 0.29 K/uL (0.24-0.82); Monocytes % (auto) 4.1 %; Neutrophils % (auto) 58.4 %; Platelet Count 276 K/uL (130-400); RDW Coefficient of Variation 13.8 % (11.5-14.5); RDW Standard Deviation 46.8 fL (36.4-46.3); Red Blood Count 4.58 M/uL (3.93-5.22); White Blood Count 7.02 K/ul (4.8-10.8)
[2021-09-15] MEDS ORDERED: METOCLOPRAMIDE HCL INJ 5 MG/ML 2 ML VIAL IV STA (16:19)
--- NOTE | 2021-09-15 16:40 | Emergency Department Note ---
Impression & Plan Nausea & vomiting, Elevated troponin I level, Discomfort of neck ED Provider Note Provider: Jethro Perez MD DATE OF SERVICE: 09/15/2021 CHIEF COMPLAINT: Nausea and vomiting today HISTORY OF PRESENT ILLNESS: Patient is a 61-year-old female history of gastric bypass, CKD, hypertension presenting here today due to nausea and vomiting recurrently today. No issues yesterday and has been feeling well. States she woke this morning had multiple episodes of nausea and vomiting. Took a dose of home dissolvable Zofran around noon that has been effective in reducing this. Denies diarrhea. Denies abdominal pain. Patient states her shoulders and neck and head hurt just a little bit but she denies falling or syncope. States there may been a few specks of black in her vomit but no blood reported. Patient states she is history earlier this year of having some pancreatitis but not having pain now that was present when she had this in the spring. Has not been able to eat or drink anything today due to symptoms. Reports she has had a recent endoscopy that was reassuring. REVIEW OF SYSTEMS: A total of 10 review of systems was obtained and negative except as stated above in the HPI. PAST MEDICAL HISTORY: As noted above MEDICATIONS: Reviewed home medication list SOCIAL HISTORY: Denies alcohol use PHYSICAL EXAM: GENERAL: alert and oriented in no acute distress on stretcher Head: normocephalic and atraumatic EYES: No injection, discharge or icterus. PERRL NECK: Trachea midline. LUNGS: Airway patent. No retractions. Breath sounds clear with good air entry bilaterally. HEART: Regular rate and rhythm. No chest wall tenderness ABDOMEN: Soft and non-tender, without guarding or rebound SKIN: Acyanotic, warm, dry, without rashes EXTREMITIES: Without swelling, tenderness or deformity NEUROLOGICAL: No focal deficits. No aphasia. No facial droop or slurred speech. EK bpm normal sinus rhythm without PVC or PAC. No acute ST segment elevation or depression with a QTC of 409. CONTINUOUS CARDIAC MONITORING: was ordered and showed a heart rate of 60s-70s bpm in normal sinus rhythm Patient's laboratory studies and imaging reviewed. Differential includes Appendicitis, infections, diverticulitis, UTI, obstruction, mesenteric ischemia, aortic pathology, inflammatory bowel disease, renal colic, PUD, pancreatitis, biliary pathology, hernia, volvulus, constipation, as well as other pathologies. IMPRESSION/MEDICAL DECISION MAKING: Patient with prior gastric bypass recurrent nausea and vomiting. Minimal headache she states after vomiting with some soreness in her neck but denies significant choking, or sore throat. Patient denies falls or chest pain. Given some IV hydration here. Given some Reglan to help with symptoms that she did has improvement with Zofran earlier about 4 hours ago. Given her history of gastric bypass did complete a CT scan of the abdomen pelvis although again she is not having significant pain. Basic labs were obtained. No sick contacts reported. Not having other neurological findings and I doubt acute intracranial abnormality. EKG although not having significant chest discomfort with some shoulder and neck discomfort was obtained without significant findings. High-sensitivity troponin however was mildly elevated in the 50s. Prior normal troponins in the past have not had elevation. No significant leukocytosis or anemia. No significant renal dysfunction with creatinine at baseline around 1.2. No lipase elevation or concerning findings for hepatitis. Negative COVID and urinalysis. CT scan of the abdomen pelvis per radiology without significant acute findings. Patient states she felt anxious and was given her home medications including small amount of Benadryl which she did not take today. Discussed with the patient findings. She states that she has had tolerated some sips of fluid and not feeling nauseous. Still feels a little bit of achiness in the upper shoulders and neck. Discussed recommend observation given slight troponin elevation but again minimal symptoms. Will defer aspirin in discussion with the patient given her history of gastric bypass at this time. Hospitalist contacted. DIAGNOSIS: Nausea and vomiting, elevated troponin DISPOSITION: Hospitalist will evaluate Patient was agreeable with this plan. Past Med/Surg History Medical History Cannabis abuse Depression Generalized anxiety disorder HLD (hyperlipidemia) HTN (hypertension) T12 compression fracture Surgical History History of gastric bypass History of lumbar fusion S/P cervical spinal fusion Family History Other No pertinent family history Social History Smoking Status: Former smoker Hx Alcohol Use: Yes Alcohol type: hard liquor Hx Substance Use: No Preferred Language: Slovenian Communication Ability: Effective Insurance Counselor Required: No Beliefs That Will Affect Care: None Current Living Situation: Spouse Feels Safe at Home: Yes Assistive Devices: Cane, Denture - Upper and Denture - Lower Allergies Allergies Allergy/AdvReac Type Severity Reaction Status Date / Time octyl 2-cyanoacrylate Allergy Mild Rash Verified 09/15/21 17:59 Penicillins Allergy Unknown Unknown Verified 09/15/21 17:59 Sulfa (Sulfonamide Allergy Unknown Unknown Verified 09/15/21 17:59 Antibiotics) NSAIDS (Non-Steroidal AdvReac Intermediate due to Verified 09/15/21 17:59 Anti-Inflamma gastric bypass Home Meds Home Medications Medication Instructions Recorded Confirmed multivitamin 1 tab PO QDD 03/30/18 09/15/21 potassium chloride 10 mEq 10 meq PO QDD 03/30/18 09/15/21 tablet,extended release bupropion HCl 75 mg tablet 150 mg PO BIDM 06/18/18 09/15/21 buspirone 30 mg tablet 30 mg PO BIDM 06/18/18 09/15/21 ferrous sulfate, dried 159 mg (45 159 mg PO QPM 05/06/19 09/15/21 mg iron) tablet,extended release (iron ER) pantoprazole 40 mg tablet,delayed 40 mg PO BIDM 05/06/19 09/15/21 release hydroxyzine pamoate 25 mg capsule See Rx Instructions .Route 01/04/20 09/15/21 .COMPLEX PRN Anxiety alendronate 70 mg tablet 70 mg PO WK 11/30/20 09/15/21 cholecalciferol (vitamin D3) 25 25 mcg PO QDD 11/30/20 09/15/21 mcg (1,000 unit) capsule (Vitamin D3) calcium citrate-vitamin D3 500 mg 1 tab PO TID 03/29/21 09/15/21 calcium-400 unit chewable tablet lamotrigine 150 mg tablet 150 mg PO DAILY 03/29/21 09/15/21 metoprolol succinate 25 mg 25 mg PO QAM 03/29/21 09/15/21 tablet,extended release 24 hr primidone 50 mg tablet 25 mg PO BID 03/29/21 09/15/21 lisinopril 5 mg tablet 5 mg PO QAM 05/26/21 09/15/21 trazodone 50 mg tablet 50 mg PO HS 05/26/21 09/15/21 vortioxetine 5 mg tablet 5 mg PO DAILY 05/26/21 09/15/21 (Trintellix) vortioxetine 10 mg tablet 10 mg PO QAM 09/15/21 09/15/21 (Trintellix) Results & Data (ED) Vital Signs Vital Signs - 24 hr 09/15/21 15:21 09/15/21 16:52 09/15/21 16:27 Temperature 36.0 C L Temperature Source Temporal Artery Scan Pulse Rate 80 68 Pulse Rate [Apical] 79 Pulse Rate from SpO2 Sensor Pulse Rhythm [Apical] Regular Respiratory Rate 12 21 18 Respiratory Effort / Characteristics Spontaneous Respiratory Depth Normal Blood Pressure 167/95 H Blood Pressure [Right Arm] 154/112 H Blood Pressure Mean 119 Blood Pressure Mean [Right Arm] 126 Pulse Oximetry 97 99 99 Oxygen Delivery Method Room Air Room Air Room Air Sepsis Recent Fever Within 48 Hours No Sepsis New/Unexplained Change in Mental Status No Sepsis Action Taken by Nursing No Action Required 09/15/21 18:00 09/15/21 16:41 09/15/21 16:50 Temperature Temperature Source Pulse Rate 81 Pulse Rate [Apical] 73 Pulse Rate from SpO2 Sensor Pulse Rhythm [Apical] Respiratory Rate 18 31 H Respiratory Effort / Characteristics Respiratory Depth Blood Pressure 154/112 H Blood Pressure [Right Arm] 151/115 H Blood Pressure Mean 126 Blood Pressure Mean [Right Arm] 127 Pulse Oximetry 97 Oxygen Delivery Method Room Air Sepsis Recent Fever Within 48 Hours Sepsis New/Unexplained Change in Mental Status Sepsis Action Taken by Nursing 09/15/21 16:50 09/15/21 17:00 09/15/21 17:10 Temperature Temperature Source Pulse Rate 73 71 79 Pulse Rate [Apical] Pulse Rate from SpO2 Sensor Pulse Rhythm [Apical] Respiratory Rate 15 17 20 Respiratory Effort / Characteristics Respiratory Depth Blood Pressure Blood Pressure [Right Arm] Blood Pressure Mean Blood Pressure Mean [Right Arm] Pulse Oximetry Oxygen Delivery Method Sepsis Recent Fever Within 48 Hours Sepsis New/Unexplained Change in Mental Status Sepsis Action Taken by Nursing 09/15/21 17:20 09/15/21 18:42 09/15/21 18:42 Temperature Temperature Source Pulse Rate 81 Pulse Rate [Apical] Pulse Rate from SpO2 Sensor 75 Pulse Rhythm [Apical] Respiratory Rate 21 Respiratory Effort / Characteristics Respiratory Depth Blood Pressure 151/115 H Blood Pressure [Right Arm] Blood Pressure Mean 127 Blood Pressure Mean [Right Arm] Pulse Oximetry 98 Oxygen Delivery Method Sepsis Recent Fever Within 48 Hours Sepsis New/Unexplained Change in Mental Status Sepsis Action Taken by Nursing 09/15/21 18:50 09/15/21 19:00 09/15/21 19:10 Temperature Temperature Source Pulse Rate 74 71 72 Pulse Rate [Apical] Pulse Rate from SpO2 Sensor Pulse Rhythm [Apical] Respiratory Rate 16 18 18 Respiratory Effort / Characteristics Respiratory Depth Blood Pressure Blood Pressure [Right Arm] Blood Pressure Mean Blood Pressure Mean [Right Arm] Pulse Oximetry Oxygen Delivery Method Sepsis Recent Fever Within 48 Hours Sepsis New/Unexplained Change in Mental Status Sepsis Action Taken by Nursing 09/15/21 19:20 09/15/21 19:30 09/15/21 19:40 Temperature Temperature Source Pulse Rate 72 73 71 Pulse Rate [Apical] Pulse Rate from SpO2 Sensor Pulse Rhythm [Apical] Respiratory Rate 18 22 18 Respiratory Effort / Characteristics Respiratory Depth Blood Pressure Blood Pressure [Right Arm] Blood Pressure Mean Blood Pressure Mean [Right Arm] Pulse Oximetry Oxygen Delivery Method Sepsis Recent Fever Within 48 Hours Sepsis New/Unexplained Change in Mental Status Sepsis Action Taken by Nursing 09/15/21 19:50 09/15/21 20:00 09/15/21 20:10 Temperature Temperature Source Pulse Rate 71 75 75 Pulse Rate [Apical] Pulse Rate from SpO2 Sensor Pulse Rhythm [Apical] Respiratory Rate 15 21 17 Respiratory Effort / Characteristics Respiratory Depth Blood Pressure Blood Pressure [Right Arm] Blood Pressure Mean Blood Pressure Mean [Right Arm] Pulse Oximetry Oxygen Delivery Method Sepsis Recent Fever Within 48 Hours Sepsis New/Unexplained Change in Mental Status Sepsis Action Taken by Nursing Laboratory Data Result diagrams: 09/15/21 15:48 09/15/21 15:48 Lab Results 09/15/21 09/15/21 09/15/21 Range/Units 15:48 15:48 16:13 WBC 7.02 (4.8-10.8) K/ul RBC 4.58 (3.93-5.22) M/uL Hgb 14.1 (12.0-16.0) g/dl Hct 42.1 (34.1-44.9) % MCV 91.9 (80.0-100.0) fL MCH 30.8 (25.0-34.0) pg MCHC 33.5 (32.0-36.0) g/dL RDW Std Deviation 46.8 H (36.4-46.3) fL RDW Coeff of Kiara 13.8 (11.5-14.5) % Plt Count 276 (130-400) K/uL MPV 9.0 L (9.4-12.3) fL Immature Gran % (Auto) 0.6 % Neut % (Auto) 58.4 % Lymph % (Auto) 35.2 % [place] % (Auto) 4.1 % Eos % (Auto) 1.3 % Baso % (Auto) 0.4 % Neut # (Auto) 4.10 (1.4-6.5) K/uL Lymph # (Auto) 2.47 (1.2-3.4) K/uL [place] # (Auto) 0.29 (0.24-0.82) K/uL Eos # (Auto) 0.09 (0-0.50) K/uL Baso # (Auto) 0.03 (0-0.2) K/uL Immature Gran # (Auto) 0.04 H (0.00-0.02) K/uL Sodium 138 (136-145) mmol/L Potassium 4.5 (3.5-5.1) mmol/L Chloride 105 (98-107) mmol/L Carbon Dioxide 25 (21-32) mmol/L Anion Gap 8 (3-11) BUN 16 (6-23) mg/dl Creatinine 1.24 H (0.6-1.2) mg/dl Est Cr Clr Drug Dosing 43.2 ml/min Est GFR ( Amer) 54.7 ml/min Est GFR (Non-Af Amer) 47.2 ml/min BUN/Creatinine Ratio 12.9 (10-20) Glucose 96 (70-99(Fasting)) mg/dl Calcium 9.8 (8.5-10.1) mg/dl Total Bilirubin 0.3 (0.2-1.0) mg/dl AST 29 (13-39) U/L ALT 19 (7-52) U/L Alkaline Phosphatase 45 (34-104) U/L Troponin I High Sens 52.6 H* (0-14) pg/ml Total Protein 7.4 (6.0-8.3) gm/dl Albumin 4.3 (3.4-5.0) gm/dl Globulin 3.1 (2.5-4.0) gm/dl Albumin/Globulin Ratio 1.4 (0.9-2) Lipase 54 (11-82) U/L Urine Color Yellow Urine Appearance Clear (Clear) Urine pH 5.5 (4.5-7.5) Ur Specific [place] 1.021 (1.000-1.030) Urine Protein Negative (Negative) Urine Glucose (UA) Negative (Negative) Urine Ketones Negative (Negative) Urine Blood Negative (Negative) Urine Nitrite Negative (Negative) Urine Bilirubin Negative (Negative) Urine Urobilinogen Negative (Negative) Ur Leukocyte Esterase Negative (Negative) SARS-CoV-2, RNA, NAAT (NEGATIVE) 09/15/21 Range/Units 16:16 WBC (4.8-10.8) K/ul RBC (3.93-5.22) M/uL Hgb (12.0-16.0) g/dl Hct (34.1-44.9) % MCV (80.0-100.0) fL MCH (25.0-34.0) pg MCHC (32.0-36.0) g/dL RDW Std Deviation (36.4-46.3) fL RDW Coeff of Kiara (11.5-14.5) % Plt Count (130-400) K/uL MPV (9.4-12.3) fL Immature Gran % (Auto) % Neut % (Auto) % Lymph % (Auto) % [place] % (Auto) % Eos % (Auto) % Baso % (Auto) % Neut # (Auto) (1.4-6.5) K/uL Lymph # (Auto) (1.2-3.4) K/uL [place] # (Auto) (0.24-0.82) K/uL Eos # (Auto) (0-0.50) K/uL Baso # (Auto) (0-0.2) K/uL Immature Gran # (Auto) (0.00-0.02) K/uL Sodium (136-145) mmol/L Potassium (3.5-5.1) mmol/L Chloride (98-107) mmol/L Carbon Dioxide (21-32) mmol/L Anion Gap (3-11) BUN (6-23) mg/dl Creatinine (0.6-1.2) mg/dl Est Cr Clr Drug Dosing ml/min Est GFR ( Amer) ml/min Est GFR (Non-Af Amer) ml/min BUN/Creatinine Ratio (10-20) Glucose (70-99(Fasting)) mg/dl Calcium (8.5-10.1) mg/dl Total Bilirubin (0.2-1.0) mg/dl AST (13-39) U/L ALT (7-52) U/L Alkaline Phosphatase (34-104) U/L Troponin I High Sens (0-14) pg/ml Total Protein (6.0-8.3) gm/dl Albumin (3.4-5.0) gm/dl Globulin (2.5-4.0) gm/dl Albumin/Globulin Ratio (0.9-2) Lipase (11-82) U/L Urine Color Urine Appearance (Clear) Urine pH (4.5-7.5) Ur Specific [place] (1.000-1.030) Urine Protein (Negative) Urine Glucose (UA) (Negative) Urine Ketones (Negative) Urine Blood (Negative) Urine Nitrite (Negative) Urine Bilirubin (Negative) Urine Urobilinogen (Negative) Ur Leukocyte Esterase (Negative) SARS-CoV-2, RNA, NAAT NEGATIVE (NEGATIVE) Administered Medications Discontinued Medications Buspirone HCl (Buspirone 15 Mg Tab) 30 mg PO ONCE ONE Stop: 09/15/21 17:26 Last Admin: 09/15/21 17:38 Dose: 30 mg Documented By: PHILLIP Diphenhydramine HCl (Diphenhydramine 50 Mg/Ml Vial) 25 mg IV NOW STA Stop: 09/15/21 17:26 Last Admin: 09/15/21 17:37 Dose: 25 mg Documented By: PHILLIP Sodium Chloride (Nss 1000ml) 1,000 mls @ 999 mls/hr IV .Q1H1M STA Stop: 09/15/21 16:59 Last Infusion: 09/15/21 17:14 Dose: 0 mls/hr Documented By: Admin: 09/15/21 16:09 Dose: 999 mls/hr Documented By: KT Ioversol (Optiray 320 100ml) 95 ml IV ONCE ONE Stop: 09/15/21 17:28 Last Admin: 09/15/21 17:28 Dose: 95 ml Documented By: [facility] Lamotrigine (Lamotrigine 100 Mg Tab) 150 mg PO NOW STA Stop: 09/15/21 17:26 Last Admin: 09/15/21 17:38 Dose: 150 mg Documented By: PHILLIP Metoclopramide HCl (Metoclopramide Hcl Inj 5 Mg/Ml 2 Ml Vial) 10 mg IV NOW STA Stop: 09/15/21 16:20 Last Admin: 09/15/21 16:54 Dose: 10 mg Documented By: LORNA Metoprolol Tartrate (Metoprolol Tartrate 1 Mg/Ml Vial) 5 mg IV NOW STA Stop: 09/15/21 20:44 Last Admin: 09/15/21 20:57 Dose: 5 mg Documented By: KT Primidone (Primidone 50 Mg Tab) 25 mg PO ONCE ONE Stop: 09/15/21 17:26 Last Admin: 09/15/21 17:37 Dose: 25 mg Documented By: PHILLIP Imaging Data Radiologist's Impression: Abdomen/Pelvis CT 09/15/21 16:19 CT SCAN OF THE ABDOMEN AND PELVIS WITH IV CONTRAST CLINICAL HISTORY: Generalized abdominal pain. Vomiting. COMPARISON STUDY: Abdominal CT dated 05/26/2021. TECHNIQUE: Following the IV administration of 94 cc of Optiray 320, CT scan of the abdomen and pelvis is performed from the lung bases to the proximal femora. Images are reviewed in the axial, sagittal, and coronal planes. IV contrast was administered without complication. A dose lowering technique was utilized adhering to the principles of ALARA. CT DOSE: 402.62 mGy.cm FINDINGS: Lung bases: The heart is normal in size and without pericardial effusion. There are coronary artery calcifications. The lung bases are clear. Bilateral breast implants are partially imaged. Liver: The contrast-enhanced liver is normal in size, contour, and attenuation. There is no intrahepatic biliary ductal dilatation. The hepatic veins and portal veins are patent. Gallbladder: Unremarkable. Spleen: Normal in size and attenuation. Pancreas: Unremarkable. Adrenal glands: Unremarkable. Kidneys: The contrast enhanced kidneys demonstrate mild cortical atrophy and are without hydronephrosis. The kidneys enhance symmetrically. A 6 cm cyst arises from the lower pole of the left kidney. A 1.0 cm cyst is noted in the interpolar right kidney. Abdominal vasculature: The abdominal aorta is normal in course and caliber noting moderate to advanced atherosclerotic calcification. Stomach and bowel: There is a small hiatal hernia. Postoperative changes con sistent with a history of Michelle-en-Y gastric bypass surgery. No bowel obstruction is seen. Mild fecal retention is seen throughout the colon. The appendix is well-visualized and normal. Peritoneum: There is no intraperitoneal free air or abdominal ascites. There is a small fat-containing umbilical hernia. Lymphadenopathy: None. Pelvic viscera: The bladder is normal as visualized. The uterus is surgically absent. No adnexal lesion is seen. Skeletal structures: The skeletal structures are osteopenic. Postoperative and spondylotic change is noted in the lumbar spine. There is a moderate chronic compression deformity of T12. No lytic or blastic lesions are seen. IMPRESSION: 1. No acute infectious or inflammatory findings are identified in the abdomen or pelvis. 2. There is postoperative change from a Michelle-en-Y gastric bypass procedure. No bowel obstruction is seen. 3. Additional findings as above. ACT 112: Negative or not required by law. Electronically signed by: Eduardo Cary M.D. 09/15/2021 5:50 PM Discharge Plan Visit Data Chief Complaint: Vomiting Stated Complaint: REFERRED BY , VOMITING ED Provider: Jethro Perez Discharge Problem: Nausea & vomiting, Elevated troponin I level, Discomfort of neck Patient Disposition: Admitted As Inpatient Discharge Instructions Interventions: ED Discharge Assessment Last Done: 09/15/21 21:42
[2021-09-15 16:53] LABS: Appearance Urine Clear (Clear); Bilirubin Urine Negative (Negative); Blood Urine Negative (Negative); Color Urine Yellow; Glucose Urine UA Negative (Negative); Ketones Urine Negative (Negative); Leukocyte Esterase Urine Negative (Negative); Nitrite Urine Negative (Negative); Protein Urine Negative (Negative); Specific Gravity Urine 1.021 (1.000-1.030); Urobilinogen Urine Negative (Negative); pH Urine 5.5 (4.5-7.5)
[2021-09-15 16:54] LABS: Albumin Globulin Ratio 1.4 (0.9-2); Albumin Level 4.3 gm/dl (3.4-5.0); BUN Creatinine Ratio 12.9 (10-20); Bilirubin,Total 0.3 mg/dl (0.2-1.0); Calcium 9.8 mg/dl (8.5-10.1); Creatinine Clr Calc Pharmacy 43.2 ml/min; Est GFR (African American) 54.7 ml/min; Est GFR (Non-African American) 47.2 ml/min; Globulin 3.1 gm/dl (2.5-4.0); Potassium 4.5 mmol/L (3.5-5.1); Total Protein 7.4 gm/dl (6.0-8.3)
[2021-09-15 17:23] LABS: Troponin I High Sensitivity 52.6 pg/ml (0-14)
[2021-09-15] MEDS ORDERED: PRIMIDONE 50 MG TAB PO ONE (17:25)
[2021-09-15] MEDS ORDERED: lamoTRIgine 100 MG TAB PO STA (17:25)
[2021-09-15] MEDS ORDERED: busPIRone 15 MG TAB PO ONE (17:25)
[2021-09-15] MEDS ORDERED: diphenhydrAMINE 50 MG/ML VIAL IV STA (17:25)
[2021-09-15] MEDS ORDERED: OPTIRAY 320 100ml IV ONE (17:27)
--- NOTE | 2021-09-15 17:53 | CT Scan Report ---
CT SCAN OF THE ABDOMEN AND PELVIS WITH IV CONTRAST CLINICAL HISTORY: Generalized abdominal pain. Vomiting. COMPARISON STUDY: Abdominal CT dated 05/26/2021. TECHNIQUE: Following the IV administration of 94 cc of Optiray 320, CT scan of the abdomen and pelvi s is performed from the lung bases to the proximal femora. Images are reviewed in the axial, sagittal , and coronal planes. IV contrast was administered without complication. A dose lowering technique wa s utilized adhering to the principles of ALARA. CT DOSE: 402.62 mGy.cm FINDINGS: Lung bases: The heart is normal in size and without pericardial effusion. There are coronary artery c alcifications. The lung bases are clear. Bilateral breast implants are partially imaged. Liver: The contrast-enhanced liver is normal in size, contour, and attenuation. There is no intrahepa tic biliary ductal dilatation. The hepatic veins and portal veins are patent. Gallbladder: Unremarkable. Spleen: Normal in size and attenuation. Pancreas: Unremarkable. Adrenal glands: Unremarkable. Kidneys: The contrast enhanced kidneys demonstrate mild cortical atrophy and are without hydronephros is. The kidneys enhance symmetrically. A 6 cm cyst arises from the lower pole of the left kidney. A 1 .0 cm cyst is noted in the interpolar right kidney. Abdominal vasculature: The abdominal aorta is normal in course and caliber noting moderate to advance d atherosclerotic calcification. Stomach and bowel: There is a small hiatal hernia. Postoperative changes consistent with a history of Michelle-en-Y gastric bypass surgery. No bowel obstruction is seen. Mild fecal retention is seen through out the colon. The appendix is well-visualized and normal. Peritoneum: There is no intraperitoneal free air or abdominal ascites. There is a small fat-containin g umbilical hernia. Lymphadenopathy: None. Pelvic viscera: The bladder is normal as visualized. The uterus is surgically absent. No adnexal lesi on is seen. Skeletal structures: The skeletal structures are osteopenic. Postoperative and spondylotic change is noted in the lumbar spine. There is a moderate chronic compression deformity of T12. No lytic or gracie tic lesions are seen. IMPRESSION: 1. No acute infectious or inflammatory findings are identified in the abdomen or pelvis. 2. There is postoperative change from a Michelle-en-Y gastric bypass procedure. No bowel obstruction is s een. 3. Additional findings as above. ACT 112: Negative or not required by law. Electronically signed by: Eduardo Cary M.D. 09/15/2021 5:50 PM
[2021-09-15] MEDS ORDERED: METOPROLOL TARTRATE 1 MG/ML VIAL IV STA (20:43)
--- NOTE | 2021-09-15 21:34 | History and Physical Report ---
DATE OF ADMISSION: 09/15/2021. CHIEF COMPLAINT: Nausea, vomiting. 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 The patient says since morning, she was having lot of nausea, vomiting, not able to eat anything. Last bowel movement was yesterday. Denies any abdominal pain. No fever, no chills. No cough, no chest pain, no shortness of breath. Has some mild headache now. No blurred vision, no dizziness, no runny nose, no sore throat, no cough. Resting comfortably, hemodynamically stable. ALLERGIES: 2-OCTYL CYANOACRYLATE, PENICILLIN, SULFA ANTIBIOTICS, AND NSAIDS. PAST MEDICAL HISTORY: As mentioned above. PAST SURGICAL HISTORY: Arthrodesis, autograft for spine surgery, bone marrow aspiration, , colonoscopy, EGD, EGD with biopsy, mammoplasty, skin panniculectomy, gastric bypass for obesity, insertion of biomechanical device for intervertebral disk, ligation of oviducts, lumbar spine fusion surgery, removal of excessive skin, laminectomy, sacroiliac joint injection, total abdominal hysterectomy with removal of tubes. MEDICATIONS: The patient is on alendronate 70 mg p.o. weekly, bupropion 150 mg p.o. b.i.d., buspirone 30 mg p.o. b.i.d., calcium plus vitamin D 1 tablet p.o. t.i.d., vitamin D 25 mcg p.o. daily, hydroxyzine p.r.n., iron 159 mg p.o. p.m., lamotrigine 150 mg p.o. daily, lisinopril 5 mg p.o. a.m., metoprolol succinate 25 mg p.o. a.m., multivitamins 1 tablet p.o. daily, Protonix 40 mg p.o. b.i.d., potassium chloride 10 mEq p.o. daily, primidone 25 mg p.o. b.i.d., trazodone 50 mg p.o. at bedtime, Trintellix 5 mg p.o. daily, Trintellix 10 mg p.o. a.m. FAMILY HISTORY: Significant for mother had allergies, ovarian cancer, ear problems, thyroid disorder; father had glaucoma, heart disorder, hypertension, sleep apnea; son has diabetes, GERD; daughter has reflux. SOCIAL HISTORY: Quit smoking in 2017, smoked quarter pack a day for 15 years. Alcohol, rarely. Smokes marijuana. REVIEW OF SYSTEMS: As per HPI. Rest of review of systems is negative. PHYSICAL EXAMINATION: GENERAL: The patient is of moderate build, not in acute distress. VITAL SIGNS: Temperature 36, pulse 73, respiratory rate 18, blood pressure 151/115, oxygen 97% on room air. HEENT: Pupils equal, round and reactive to light. Oral mucosa moist. NECK: No JVD, no neck masses. CARDIOVASCULAR: S1 and S2 heard. Regular rate and rhythm. No murmur, no gallop. RESPIRATORY SYSTEM: Normal AP diameter. No accessory muscle use. No wheezing, no crackles. ABDOMEN: Soft, bowel sounds present, nontender, no distention. CENTRAL NERVOUS SYSTEM: Cranial nerves II-XII grossly intact, nonfocal. EXTREMITIES: No edema, no erythema. LABORATORY DATA: WBC 7, hemoglobin 14.1, hematocrit 42.1, platelets 276. Sodium 138, potassium 4.5, chloride 105, bicarbonate 25, BUN 16, creatinine 1.2, serum glucose 196, calcium 9.8, total bilirubin 0.3, AST 29, ALT 19, alkaline phosphatase 45. Troponin I high-sensitivity 52. Lipase 54. Urinalysis negative. SARS-CoV-2 rapid test negative. IMAGING DATA: CT of abdomen and pelvis with IV contrast, no acute infectious or inflammatory findings identified in the abdomen or pelvis. Postoperative changes of Michelle-en-Y gastric bypass procedure. No bowel obstruction is seen. EKG: Normal sinus rhythm at a rate of 63, no significant change was found. ASSESSMENT AND PLAN: This is a 61-year-old female who presents with nausea, vomiting. 1. Nausea, vomiting, possible gastroenteritis. Imaging studies are okay. Laboratories are okay. We will keep her n.p.o. for now. IV fluids and monitor. If her symptoms improved, start her on diet. 2. Mild elevation of troponin. The patient is asymptomatic. EKG okay. We will follow serial enzymes. If troponin gets elevated, we will get echocardiogram. 3. History of chronic kidney disease stage III, presents with a creatinine 1.2. We will follow the laboratories. 4. History of hypertension: Continue home medications of metoprolol succinate and lisinopril. We will monitor the blood pressure. 5. History of anxiety and depression. Continue bupropion, buspirone, trazodone and Lamictal. 6. Gastroesophageal reflux disease. Continue Protonix. 7. Deep venous thrombosis prophylaxis, sequential compression devices for now. DISPOSITION: Observation in med-tele. PT/OT prior to discharge. Social service to help with discharge planning. Job ID: [id number] MTDD
[2021-09-15] MEDS ORDERED: NITROGLYCERIN SL 0.4 MG/TAB TAB SL PRN (22:14)
[2021-09-15] MEDS ORDERED: FERROUS SULFATE 325 MG TAB PO SCH (22:14)
[2021-09-15] MEDS ORDERED: traZODone HCL 50 MG TAB PO SCH (22:14)
[2021-09-15] MEDS ORDERED: ONDANSETRON INJ 2 MG/ML 2 ML VIAL IV PRN (22:14)
[2021-09-15] MEDS: D5W AND 1/2NSS 1,000 ML IV SCH (23:00)
[2021-09-16] MEDS: PANTOprazole 40 MG TAB PO SCH ×2 (00:22→08:15)
[2021-09-16] MEDS: PRIMIDONE 50 MG TAB PO SCH ×2 (00:30→08:16)
[2021-09-16] MEDS: ACETAMINOPHEN 325 MG TAB PO PRN ×2 (00:30→12:37)
[2021-09-16 05:58] LABS: Basophils # (auto) 0.03 K/uL (0-0.2); Basophils % (auto) 0.5 %; Eosinophils # (auto) 0.19 K/uL (0-0.50); Eosinophils % (auto) 3.3 %; Hematocrit (blood only) 37.7 % (34.1-44.9); Hemoglobin 12.5 g/dl (12.0-16.0); Immature Granulocytes # (auto) 0.02 K/uL (0.00-0.02); Immature Granulocytes % (auto) 0.4 %; Lymphocytes # (auto) 2.12 K/uL (1.2-3.4); Lymphocytes % (auto) 37.3 %; Mean Corpuscular Hemoglobin 30.6 pg (25.0-34.0); Mean Corpuscular Hgb Conc 33.2 g/dL (32.0-36.0); Mean Corpuscular Volume 92.4 fL (80.0-100.0); Mean Platelet Volume 8.8 fL (9.4-12.3); Monocytes # (auto) 0.53 K/uL (0.24-0.82); Monocytes % (auto) 9.3 %; Neutrophils # (auto) 2.79 K/uL (1.4-6.5); Neutrophils % (auto) 49.2 %; Platelet Count 196 K/uL (130-400); RDW Coefficient of Variation 13.6 % (11.5-14.5); RDW Standard Deviation 46.4 fL (36.4-46.3); Red Blood Count 4.08 M/uL (3.93-5.22); White Blood Count 5.68 K/ul (4.8-10.8)
[2021-09-16 06:46] LABS: BUN Creatinine Ratio 9.5 (10-20); Calcium 8.3 mg/dl (8.5-10.1); Creatinine Clr Calc Pharmacy 51.3 ml/min; Est GFR (African American) 66.9 ml/min; Est GFR (Non-African American) 57.7 ml/min; Magnesium 1.7 mg/dl (1.7-2.4)
[2021-09-16] MEDS: D5W AND 1/2NSS 1,000 ML IV SCH ×2 (07:38→15:39)
[2021-09-16] MEDS ORDERED: busPIRone 15 MG TAB PO SCH (08:00)
[2021-09-16] MEDS ORDERED: buPROPion HCl 75 MG TABLET PO SCH (08:00)
[2021-09-16] MEDS ORDERED: lisinopril 5 MG TAB PO SCH (09:00)
[2021-09-16] MEDS ORDERED: lamoTRIgine 100 MG TAB PO SCH (09:00)
[2021-09-16] MEDS ORDERED: hydrOXYzine HCl 25 MG TAB PO SCH ×2 (09:00→16:30)
[2021-09-16] MEDS ORDERED: METOPROLOL SUCC 25MG EXT REL TAB PO SCH (09:00)
[2021-09-16] MEDS ORDERED: lamoTRIgine 25 MG TAB PO SCH (09:00)
--- NOTE | 2021-09-16 11:07 | Electrocardiogram Report ---
Test Reason : Blood Pressure : / mmHG Vent. Rate : 063 BPM Atrial Rate : 063 BPM P-R Int : 146 ms QRS Dur : 082 ms QT Int : 400 ms P-R-T Axes : 034 010 042 degrees QTc Int : 409 ms Normal sinus rhythm Normal ECG When compared with ECG of 26-MAY-2021 15:48, No significant change was found Confirmed by Chuy Gee ([id number]) on 09/16/2021 11:06:33 AM Referred By: Elida Lance Confirmed By:Chuy Gee
--- NOTE | 2021-09-16 11:25 | Electrocardiogram Report ---
Test Reason : Blood Pressure : / mmHG Vent. Rate : 061 BPM Atrial Rate : 061 BPM P-R Int : 154 ms QRS Dur : 084 ms QT Int : 454 ms P-R-T Axes : 043 018 044 degrees QTc Int : 457 ms Normal sinus rhythm Normal ECG When compared with ECG of 15-SEP-2021 16:23, (unconfirmed) No significant change was found Confirmed by Chuy Gee ([id number]) on 09/16/2021 11:24:40 AM Referred By: Elida Lance Confirmed By:Chuy Gee
--- NOTE | 2021-09-16 15:36 | Discharge Summary ---
Date of Service September 16, 2021 Admission HPI Per Admitting Provider CHIEF COMPLAINT: Nausea, vomiting. 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 The patient says since morning, she was having lot of nausea, vomiting, not able to eat anything. Last bowel movement was yesterday. Denies any abdominal pain. No fever, no chills. No cough, no chest pain, no shortness of breath. Has some mild headache now. No blurred vision, no dizziness, no runny nose, no sore throat, no cough. Resting comfortably, hemodynamically stable. ALLERGIES: 2-OCTYL CYANOACRYLATE, PENICILLIN, SULFA ANTIBIOTICS, AND NSAIDS. PAST MEDICAL HISTORY: As mentioned above. PAST SURGICAL HISTORY: Arthrodesis, autograft for spine surgery, bone marrow a spiration, , colonoscopy, EGD, EGD with biopsy, mammoplasty, skin panniculectomy, gastric bypass for obesity, insertion of biomechanical device for intervertebral disk, ligation of oviducts, lumbar spine fusion surgery, removal of excessive skin, laminectomy, sacroiliac joint injection, total abdominal hysterectomy with removal of tubes. MEDICATIONS: The patient is on alendronate 70 mg p.o. weekly, bupropion 150 mg p.o. b.i.d., buspirone 30 mg p.o. b.i.d., calcium plus vitamin D 1 tablet p.o. t.i.d., vitamin D 25 mcg p.o. daily, hydroxyzine p.r.n., iron 159 mg p.o. p.m., lamotrigine 150 mg p.o. daily, lisinopril 5 mg p.o. a.m., metoprolol succinate 25 mg p.o. a.m., multivitamins 1 tablet p.o. daily, Protonix 40 mg p.o. b.i.d., potassium chloride 10 mEq p.o. daily, primidone 25 mg p.o. b.i.d., trazodone 50 mg p.o. at bedtime, Trintellix 5 mg p.o. daily, Trintellix 10 mg p.o. a.m. FAMILY HISTORY: Significant for mother had allergies, ovarian cancer, ear problems, thyroid disorder; father had glaucoma, heart disorder, hypertension, sleep apnea; son has diabetes, GERD; daughter has reflux. SOCIAL HISTORY: Quit smoking in 2017, smoked quarter pack a day for 15 years. Alcohol, rarely. Smokes marijuana. REVIEW OF SYSTEMS: As per HPI. Rest of review of systems is negative. Admission Exam Per Admitting Provider GENERAL: The patient is of moderate build, not in acute distress. VITAL SIGNS: Temperature 36, pulse 73, respiratory rate 18, blood pressure 151/115, oxygen 97% on room air. HEENT: Pupils equal, round and reactive to light. Oral mucosa moist. NECK: No JVD, no neck masses. CARDIOVASCULAR: S1 and S2 heard. Regular rate and rhythm. No murmur, no gallop. RESPIRATORY SYSTEM: Normal AP diameter. No accessory muscle use. No wheezing, no crackles. ABDOMEN: Soft, bowel sounds present, nontender, no distention. CENTRAL NERVOUS SYSTEM: Cranial nerves II-XII grossly intact, nonfocal. EXTREMITIES: No edema, no erythema. Principal Diagnosis Acute worsening of chronic nausea and vomiting Discharge Exam GENERAL: Alert and oriented x3. NAD, on RA. HEENT: No pallor, no icterus. Pupils equal, round and reactive to light. Oral mucosa moist. NECK: No JVD, no neck masses. HEART: S1 and S2 heard. Regular rate and rhythm. No murmur, no gallop. RESPIRATORY SYSTEM: Normal AP diameter. No accessory muscle use. No wheezing, no crackles. ABDOMEN: Soft, bowel sounds present, nontender, no distention. CENTRAL NERVOUS SYSTEM: No facial droop. Speech is clear. Obeys simple commands. Moves extremities. EXTREMITIES: No edema, no erythema seen. Discharge Data Allergies Allergy/AdvReac Type Severity Reaction Status Date / Time octyl 2-cyanoacrylate Allergy Mild Rash Verified 09/15/21 17:59 Penicillins Allergy Unknown Unknown Verified 09/15/21 17:59 Sulfa (Sulfonamide Allergy Unknown Unknown Verified 09/15/21 17:59 Antibiotics) NSAIDS (Non-Steroidal AdvReac Intermediate due to Verified 09/15/21 17:59 Anti-Inflamma gastric bypass Consultations 09/15/21 19:02 ED Decision to Admit Stat Ordered Studies 09/15/21 16:19 CT abd pelvis IV con only Stat Hospital Course (1) Nausea & vomiting: Plan 61-year-old lady with PMH of pancreatitis earlier this year followed by recurrent nausea and vomiting on chronic Zofran as needed, HLD, chronic rhi nitis, CKD stage III, chronic rhinitis, HTN, post gastric surgery syndrome, B12 malabsorption, spondylolisthesis, degenerative disc disease, MEYER, depression, status post cervical spine fusion surgery presented 09/15 with complaint of acute worsening of her nausea and vomiting. Patient reports that she has been having nausea and vomiting 2-3 times a week after pancreatitis earlier this year and britton s been using Zofran as needed which generally helps. Patient reports that she has been following up with GI doctor as an outpatient and has been scoped as a part of work up, no reasons has been attributed to her nausea and vomiting per her. Patient reports improvement in her vomiting with no vomiting episodes in hospital, had little bit nausea in the morning which improved by the day and would like to go home. Patient tolerating diet well. Patient was found to have mild elevation in troponin which down trended, likely due to acute stress. Patient without chest pain. EKG reviewed and with no acute ST or T changes. Her lab work including electrolytes were WNL. Patient being discharged home with following instruction at the point of discharge: Follow-up with your primary care physician within a week time. Get your blood work CMP and magnesium level done in a week time upon discharge and have the results forwarded to your primary care physician. For your chronic nausea/vomiting, take your Zofran as prior. You can take electrolyte solution if you have vomiting to replace the amount fluid that you lost while vomiting. Continue with soft diet for few days and then gradually shift towards your baseline dietary consistency. Take your medications as prescribed. Total Time Total Time Spent Total Time Spent (In Minutes): 40 Discharge Plan Discharge Items Patient Disposition: Home - Self-Care Reason For Visit: N/V Discharge Diagnosis: Acute worsening of chronic nausea and vomiting Activity: Resume your previous activity Non-emergency contact: Primary Care Provider Call non-emergency contact if: you have any medication questions, your symptoms worsen and your temperature is above 101 Follow-up/Referrals: Elida Lance DO [Primary Care Provider] - Diet: Regular Diet Texture: Easy to Chew Addtl Attending Provider Instructions: Follow-up with your primary care physician within a week time. Get your blood work CMP and magnesium level done in a week time upon discharge and have the results forwarded to your primary care physician. For your chronic nausea/vomiting, take your Zofran as prior. You can take electrolyte solution if you have vomiting to replace the amount fluid that you lost while vomiting. Continue with soft diet for few days and then gradually shift towards your baseline dietary consistency. Take your medications as prescribed. Pending Studies at Discharge: No Stand-Alone Forms: My [facility] E[employer] My [employer], Smoking Cessation Medications and DC Order Prescriptions: Continued multivitamin Tablet 1 tab PO QDD potassium chloride 10 mEq Tablet Extended Release 10 meq PO QDD buspirone 30 mg Tablet 30 mg PO BIDM bupropion HCl 75 mg Tablet 150 mg PO BIDM pantoprazole 40 mg tablet,delayed release (DR/EC) 40 mg PO BIDM Rx Instructions: 30 minutes before meals iron 159 mg (45 mg iron) Tablet Extended Release 159 mg PO QPM hydroxyzine pamoate 25 mg capsule See Rx Instructions .Route .COMPLEX PRN (Reason: Anxiety) Rx Instructions: 25 mg orally in the morning and 50 mg orally in the evening with supper alendronate 70 mg tablet 70 mg PO WK Rx Instructions: TAKES ON SUNDAYS cholecalciferol (vitamin D3) [Vitamin D3] 25 mcg (1,000 unit) Capsule 25 mcg PO QDD lamotrigine 150 mg tablet 150 mg PO DAILY primidone 50 mg tablet 25 mg PO BID metoprolol succinate 25 mg tablet extended release 24 hr 25 mg PO QAM calcium citrate-vitamin D3 500 mg calcium -400 unit Tablet,Chewable 1 tab PO TID Trintellix 5 mg tablet 5 mg PO DAILY Rx Instructions: TOTAL DOSE 15 MG--TAKES WITH 10 MG TAB. trazodone 50 mg Tablet 50 mg PO HS lisinopril 5 mg tablet 5 mg PO QAM Trintellix 10 mg tablet 10 mg PO QAM Rx Instructions: TOTAL DOSE 15 MG--TAKES WITH 5 MG TAB. Discharge Orders: Discharge Order (Routine); Ordered 09/16/21 Ordered By: Jojo Ventura Admission Data Admit Date/Time: 09/15/21 20:12 Attending Provider: Ventura,Rishikesh Admit Provider: Pal Eric Primary Care Provider: Elida Lance Other Providers: Pal Erci
[2021-09-16] MEDS ORDERED: MULTIVITAMIN TAB PO SCH (16:30)
[2021-09-16] MEDS ORDERED: POTASSIUM CHLORIDE 10 MEQ TABCR PO SCH (16:30)
== END 2021-09-16 16:01 | disposition home or self-care (01) ==
LOC: 2N 15:21 → ED 15:21 → 2N 21:42

== ENCOUNTER 2024-06-26 09:36 | Inpatient (IN) ==
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
[2024-06-26] MEDS: SODIUM CHLORIDE 0.9% 1,000 ML IV ONE (10:11)
[2024-06-26 10:29] LABS: Basophils # (auto) 0.02 K/uL (0.00-0.20); Basophils % (auto) 0.3 %; Eosinophils # (auto) 0.03 K/uL (0.00-0.50); Eosinophils % (auto) 0.5 %; Hemoglobin 10.2 g/dl (12.0-16.0); Immature Granulocytes # (auto) 0.01 K/uL (0.01-0.20); Immature Granulocytes % (auto) 0.2 %; Lymphocytes # (auto) 0.63 K/uL (1.20-3.40); Lymphocytes % (auto) 10.4 %; Mean Corpuscular Hemoglobin 31.7 pg (25.0-34.0); Mean Corpuscular Volume 93.2 fL (80.0-100.0); Mean Platelet Volume 8.7 fL (9.4-12.4); Monocytes # (auto) 0.38 K/uL (0.11-0.59); Monocytes % (auto) 6.3 %; Neutrophils % (auto) 82.3 %; Platelet Count 362 K/uL (130-400); RDW Coefficient of Variation 13.7 % (11.5-14.5); RDW Standard Deviation 45.7 fL (36.4-46.3); Red Blood Count 3.22 M/uL (4.20-5.40); White Blood Count 6.07 K/ul (4.8-10.8)
[2024-06-26 10:43] LABS: Albumin Globulin Ratio 1.2 (0.9-2); Albumin Level 3.9 gm/dl (3.4-5.0); BUN Creatinine Ratio 9.2 (10-20); Bilirubin,Total 0.5 mg/dl (0.2-1.0); Calcium 9.6 mg/dl (8.6-10.3); Globulin 3.3 gm/dl (2.5-4.0); Magnesium 1.6 mg/dl (1.7-2.4); Potassium 4.3 mmol/L (3.5-5.1); Total Protein 7.2 gm/dl (6.0-8.3)
[2024-06-26 11:46] LABS: Appearance Urine Clear (Clear); Bilirubin Urine Negative (Negative); Blood Urine Negative (Negative); Color Urine Yellow; Glucose Urine UA Negative (Negative); Ketones Urine 3+ (Negative); Leukocyte Esterase Urine Negative (Negative); Nitrite Urine Negative (Negative); Protein Urine Negative (Negative); Specific Gravity Urine 1.009 (1.000-1.030); Urobilinogen Urine Negative (Negative); pH Urine 5.5 (4.5-7.5)
[2024-06-26] MEDS: SODIUM CHLORIDE 0.9% 500 ML IV ONE (12:04)
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
--- OUTSIDE RECORDS SUMMARY | 2024-06-26 12:47 | External Medical Summary | Summary of Care ---
Author Name Unknown Organization [facility] Address [address] [place] [address] Phone [phone] Care Team Providers Care Veterinary Technician Assistant Name Role Phone Sheryl Parisi DO Primary Care Provider [phone] Reason for Visit * Auth/Cert Specialty Diagnoses / Procedures Referred By Traci t Referred To Contact Diagnoses Spinal stenosis of lumbar region with neurogenic claudication Spinal stenosis of lumbar region with neurogenic claudication [M48.062] Procedures SPINAL FUSION, LUMBAR, COMBINED LAMINECTOMY, FACETECTOMY, OR FORAMINOTOMY DURING ARTHRODESIS, LUMBAR; SINGLE VERTEBRAL SEGMENT SPINE FIXATION, POSTERIOR, (FLOOD) INSERT BIOMECH DEVICE INTERVERTEBRAL DISC SPACE W/ARTHRODESIS AUTOGRAFT, SPINE SURGERY, LOCAL REMOVE SPINE FIXATION DEVICE, POST ARTHRODESIS SPINE POSTERIOR OR POSTERIOR LATERAL WITH LAMINECTOMY LUMBAR, COMBINED LAMINECTOMY, FACETECTOMY, OR FORAMINOTOMY (UNILATERAL OR BILATERAL WITH DECOMPRESSION OF SPINAL CORD, CAUDA EQUINA AND/OR NERVE ROOT[S] DURING POSTERIOR INTERBODY ARTHRODESIS, LUMBAR POSTERIOR SPINE INSTRUMENTATION NON SEGMENTAL INSERTION INTERBODY BIOMECHANICAL DEVICE ANTERIOR W/INTERBODY ARTHRODESIS OBTAIN AUTOGRAFT FOR SPINE SURGERY LOCAL REMOVAL POSTERIOR SPINAL NONSEGMENTAL INSTRUMENTATION Joseph Giordano MD [address] [place] [address] Phone: tel: fax: [place] [facility] [place] [facility] [address] [place] [address] Phone: tel: Referral ID Status Reason Start Date Expiration Date Visits Re quested Visits Authorized [id number] [phone] Encounter Details Date Type Department Care Team (Latest Contact Info) Description 06/19/2024 8:56 AM EDT - 06/25/2024 5:56 PM EDT Hospital Encounter [facility], [facility] Medicine 6th Floor [address] [place], [place] [id number] Joseph Giordano MD [address] [place] [address] Various: CDIQDC,EKG Discharge Disposition: Home - Self Care Allergies Active Allergy Reactions Criticality Noted Date Comments Nsaids 02/01/2020 Hx gastric bypass Other Allergy (See Comments) Rash Medium 11/27/2012 Dermabond prineo Penicillins 10/04/1999 Rash, last dose was in her 20's Has safely tolerated ancef before Sulfa Antibiotics 10/04/1999 Rash in her early 20's documented as of this encounter (statuses as of 06/26/2024) Medications MULTIVITAMINS PO CAPS Take 1 Capsule by mouth every evening. Active [facility] IRON 45 MG PO TABS Take 1 Tablet by mouth in the morning. Active Pantoprazole Sodium 40 MG Oral Tablet Delayed Release (Protonix)Indic ations:Acid reflux TAKE ONE TABLET BY MOUTH TWICE A DAY 30 MINUTES BEFORE MEALS; DO NOT CRUSH, CUT OR CHEW 180 Tablet 2 01/29/20 23 Active Additional Information Patient taking differently: 40 mg Oral Daily(AM), Reported on 06/19/2024 Hair Skin & Nails Advanced Oral Tablet Take 1 Tablet by mouth daily. Active Lisinopril 2.5 MG Oral Tablet (Prinivil)Indic ations:HTN, goal below 140/90 Take 1/2 tablet by mouth daily 45 Tablet 3 5 1:13 PM EST 07/10/19 24 Active LORazepam 0.5 MG Oral Tablet (Ativan) Take 1 Tablet by mouth as needed for Anxiety. 15 Tablet 2 4 8:50 AM EDT 07/17/19 24 Active Additional Information Patient taking differently: 0.5 TabletOral PRN, Anxiety, Reported on 06/19/2024 traZODone HCl 150 MG Oral Tablet (Desyrel) Take 1 Tablet by mouth at bedtime. 90 Tablet 1 5 1:37 PM EST 01/14/20 24 Active Metoprolol Tartrate 25 MG Oral Tablet (Lopressor)Agatha cations:HTN, goal below 140/90 TAKE ONE-HALF TABLET BY MOUTH IN THE MORNING AND ONE-HALF TABLET BEFORE BEDTIME 90 Tablet 2 5 7:15 AM EST 01/26/20 24 Active Alendronate Sodium 70 MG Oral Tablet (Fosamax)Indica tions:Osteoporo sis without current pathological fracture, unspecified osteoporosis type Take 1 Tablet by mouth once a week. 12 Tablet 3 5 2:24 PM EDT 02/27/20 24 Active Trintellix 20 MG Oral Tablet (Vortioxetine HBr) Take 1 Tablet by mouth in the morning. 90 Tablet 1 5 1:41 PM EDT 03/12/19 25 Active buPROPion HCl 100 MG Oral Tablet (Wellbutrin) Take 1 Tablet by mouth in the morning and 1 Tablet before bedtime. 60 Tablet 2 5 11:26 AM EST 03/16/19 25 Active Vitamin D-[address] 25 MCG (1000 UT) Oral Tablet (Cholecalcifero l) Take 1 Tablet by mouth every evening. Active AZO Cranberry 250-30 MG Oral Tablet Take 1 Tablet by mouth daily. Active Calcium Citrate-Vitamin D 500-10 MG-MCG Oral Tablet Chewable Take 1 Tablet by mouth 2 times a day. Active Continuation of patient use of medical marijuana is approved Use as directed. Active Biofreeze Roll-On 4 % External Gel (Menthol (Topical Analgesic)) Apply topically to affected area. Apply topically to affected areas as needed Active Dry Eye Relief Drops 0.2-0.2-1 % Ophthalmic Solution (Glycerin-Hypro mellose-PEG 400) Instill 1 Drop into eye as needed for Dry eyes. Active Potassium Chloride Erin ER 10 MEQ Oral Tablet Extended ReleaseIndicati ons:Hypopotasse derek TAKE ONE TABLET BY MOUTH EVERY DAY 100 Tablet 1 5 6:22 AM EDT 05/12/19 25 026 Active oxyBUTYnin Chloride ER 15 MG Oral Tablet Extended Release 24 Hour (Ditropan XL)Indications: Urinary urgency,Urge incontinence of urine Take 2 Tablets by mouth in the morning. 180 Tablet 3 5 2:49 PM EDT 05/20/19 25 Active Metoclopramide HCl 5 MG Oral Tablet (Reglan) Take 1 Tablet by mouth every 4 hours as needed for Nausea. 20 Tablet 5 2:24 PM EDT 05/22/19 25 Active Primidone 50 MG Oral Tablet (Mysoline) Take one-half tablet by mouth twice daily 90 Tablet 1 5 1:26 PM EDT 06/11/19 25 Active oxyCODONE HCl 5 MG Oral Tablet (Oxy IR) Take 1 Tablet by mouth every 4 hours as needed for moderate to severe pain. 45 Tablet 5 12:41 PM EDT 06/26/19 25 Active Chlorhexidine Gluconate 4 % External Solution (Hibiclens) Wash with daily for 5 days prior to surgery. 120 mL 06/04/19 25 025 Discontinued Mupirocin 2 % External Ointment (Bactroban) Apply to each nostril two times per day for the 5 days prior to surgery. 22 g 06/04/19 25 025 Discontinued documented as of this encounter (statuses as of 06/26/2024) Active Problems Problem Noted Date Diagnosed Date Major depressive disorder, recurrent, in partial remission 12/27/2021 Generalized anxiety disorder 12/27/2021 S/P cervical spinal fusion 02/05/2020 DDD (degenerative disc disease), cervical 2017 Major depressive disorder, recurrent, moderate 0 06/14/2017 Memory changes 01/01/2017 Benign hypertension with CKD (chronic kidney disease) stage III 12/26/2016 Controlled substance agreement signed 04/08/2015 DDD (degenerative disc disease), lumbar 11/21/19 12 [facility] [employer] Other*[id number] 06/0 11/2009 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 B12 malabsorption s/p gastric bypass 07/14/2002 Allergic rhinitis 02/12/2002 Dyslipidemia, goal LDL below 130 12/04/2001 Chronic rhinitis HTN, goal below 140/90 Spinal stenosis, lumbar Spondylolisthesis documented as of this encounter (statuses as of 06/26/2024) Resolved Problems Problem Noted Date Diagnosed Date Resolved Date Tobacco use disorder 10/03/2013 017 Kidney disease, chronic, sta ge III (GFR 30-59 ml/min) 2013 12/26/2016 Overview: Per CKD protocol #1 Joint pain, hip 02/17/2013 12/19/2017 Obesity, Class I, BMI 30.0-3 4.9 (see actual BMI) 05/26/2009 02/18/2020 Overview (05/26/2009): Per Obesity Taxonomy Need for prophylactic hormon e replacement therapy (postmenopausal) 01/14/2008 09/02/2008 ADVANCE DIRECTIVE INFORMATION 10/08/2006 01/06/2024 Overview (10/08/2006): Yes, Patient instructed to provide copy of advance directive for provider to review and to be scanned into Electronic Medical Record Hypertrophy of breast 04/17/20052016 ABDOMINAL PANNICULITIS 04/17/200512/03 Asthma with severity to be determined 02/12/2002 09/02/2008 Overview (06/13/2015): ICD-10 update of inactive term Contact Dermatitis 02/12/2002 8 OBESITY, UNSPECIFIED 01/14/2002 010 Overview (05/26/2009): Per Obesity Taxonomy Myalgia and myositis 12/09/2001 018 JOINT PAIN-L-LEG 12/09/2001 12/03/2016 Lumbago 07/07/2018 ADJ DISORDER W/DEPRES MOOD 0 07/07/2018 Asthma, allergic 09/02/2008 Urinary frequency 12/03/2016 documented as of this encounter (statuses as of 06/26/2024) Immunizations Name Administration Dates Next Due COVID-19 mRNA, LNP-s, No Pre serve, 2-Dose Series (Pfizer) 12/08/2020,11/17/2020 Pneumococcal Conjugate Vacc, 13 Valent (Prevnar) 07/09/2016 Pneumococcal Polysaccharide PPV23 (Pneumovax) 08/21/2013 Seasonal Influenza Vac., MDV , IM, 0.5 mL (Fluzone) 11/13/2011,02/06/2010,03/02/2009,01/12,12/04/2006,03/08/2006 Seasonal Influenza, PF, 6 M & above, IM , (FluLaval or Fluzone) 03/20/2023,01/31/2022,02/09/2021,01/04,12/19/2017 Seasonal Influenza, Quadriva lent, No Preserve, IM 11/16/2016,11/16/2015 Seasonal Influenza, Trivalen t, (IIV3), PF, (Fluzone) 03/24/2024 TDAP (age 10 and older)(Boostrix) 02/18/2023 TDAP, Age 7 and older, IM (Adacel) 02/06/2010 Varicella Zoster Vaccine Jan lt (Zostavax) 07/09/2016 Zoster Vaccine Recombinant (Shingrix) 06/17/2018 ,02/28/2018 documented as of this encounter Social History Tobacco Use Types Packs/Day Years Used Date Smoking Tobacco: Former Cigarettes 0.3 15 0 07/12/2001 - 07/12/2016 Passive Smoke Exposure: Past Smokeless Tobacco: Never Alcohol Use Standard Drinks/Week Comments Not Currently 0 (1 standard drink = 0.6 oz pur e alcohol) seldom PHQ-2 Answer Date Recorded PHQ Adult Total Score 13 05/20/2024 Hunger Vital Sign Answer Date Recorded Within the past 12 months, y ou worried that your food would run out before you got the money to buy more. Never true 05/05/19 25 Within the past 12 months, t he food you bought just didn't last and you didn't have money to get more. Never true 05/04/2024 Childcare Answer Date Recorded Do you feel overwhelmed with taking care of a child, family member or friend? No 05/04/2024 Does your family need help f inding childcare? (Household - for ages 0-17 years) Not on file 05/04/2024 Clothing Answer Date Recorded Have you been unable to get clothing when it was really needed? No 05/04/2024 Is your family able to get c lothes or diapers when needed? (Household - for ages 0-17 years) Not on file 05/04/2024 Personal Safety Answer Date Recorded Do you feel unsafe or have concerns for your saf ety? No 06/19/2024 Do you have concerns for you r family's safety? (Household - for ages 0-17 years) Not on file 06/19/2024 Utilities Answer Date Recorded Do you have trouble paying y our heating, water, or electric bill? No 06/19/2024 Is your family able to pay t he heat, water, or electric bill? (Household - for ages 0-17 years) Not on file 06/19/2024 Does your family have access to good internet? (Household - for ages 0-17 years) Not on file 06/19/2024 Employment Status Answer Date Recorded Are you unemployed or without regular income? Ye s 05/04/2024 Does the household have a re gular source of income? (Household - for ages 0-17 years) Not on file 05/04/2024 Social Connections Answer Date Recorded How often do you feel lonely or isolated from th ose around you? Never 05/04/2024 Financial Resource Strain Answer Date R ecorded Do you have any trouble payi ng for your medications, or do you think you might in the future? No 05/04/2024 Does your family have troubl e paying for medicine? (Household - for ages 0-17 years) Not on file 05/04/2024 Transportation Needs Answer Date Record ed Do you have trouble getting a ride to medical visits or work? (Adult - for ages 18 years and over) Not on file 06/19/2024 Does your family have a hard time getting a ride to doctors visits? (Household - for ages 0-17 years) Not on file 06/19/2024 Has lack of transportation k ept you from medical appointments, meetings, work, or from getting things needed for daily living? Check all that apply. No 06/19/2024 Do you (or your family) have trouble finding or paying for a ride (transportation)? (Household - for ages 0-17 years) Not on file 06/19/2024 Housing Stability Answer Date Recorded Do you currently live in a s helter or have no steady place to sleep at night? No 06/19/2024 Do you think you are at risk of becoming homeless? (Adult - for ages 18 years and over) Not on file 06/19/2024 Does your family worry about paying for your home or becoming homeless? (Household - for ages 0-17 years) Not on file 0 06/19/2024 Are you homeless or worried that you might be in the future? No 06/19/2024 Are you (or your family) arjun eless or worried that you might be in the future? (Household - for ages 0-17 years) Not on file Food Insecurity Answer Date Recorded Do you need food for this week? No 10/23/2023 Are you able to get enough f ood for your family? (Household - for ages 0-17 years) Not on file 10/23/2023 Does your family need food t his week? (Household - for ages 0-17 years) Not on file 10/23/2023 Do you always have enough fo od for your family? (Household - for ages 0-17 years) Not on file 10/23/2023 Food Insecurity Answer Date Recorded Within the past 12 months, y ou worried that your food would run out before you got the money to buy more. Never true 06/20/19 25 Within the past 12 months, t he food you bought just didn't last and you didn't have money to get more. Never true 06/19/2024 Do you need food for this week? No 06/19/2024 Comments No Sex and Gender Information Value Date Recorded Sex Assigned at Female 06/27/2018 11:00 AM EDT Legal Sex Female 5:56 AM EST Gender Identity Female 06/27/2018 11:00 AM EDT Sexual Orientation Straight 06/27/2018 11 :00 AM EDT Occupation Industry Job Start Date Job End Date Not on file Not on file Not on file Not on file Not on file Not on file Not on file Not on file documented as of this encounter Last Filed Vital Signs Vital Sign Reading Time Taken Comments Blood Pressure 130/70 06/25/2024 7:00 AM EDT Pulse 100 06/25/2024 6:43 AM EDT Temperature 36.9 °C (98.4 °F) 06/25/2024 6:00 AM ED T Respiratory Rate 18 06/25/2024 6:00 AM EDT Oxygen Saturation 97% 06/25/2024 6:00 AM EDT Inhaled Oxygen Concentration - - Weight 56.4 kg (124 lb 5.4 oz) 06/19/2024 5:43 P M EDT Height 154.9 cm (5' 0.98") 06/19/2024 5:43 PM ED T Body Mass Index 23.51 06/19/2024 5:43 PM EDT documented in this encounter Functional Status * Are you deaf or do you have serious difficulty hearing? Answer Date of Assessment Author No 06/19/2024 6:06 PM EDT Krystle Schroeder RN * Are you blind or do you have serious difficulty seeing, even when wearing glasses? Answer Date of Assessment Author No 06/19/2024 6:06 PM EDT Krystle Schroeder RN * Do you have serious difficulty walking or climbing stairs? (5 years old or older) Answer Date of Assessment Author Yes 06/19/2024 6:06 PM EDT Krystle Schroeder RN * Do you have difficulty dressing or bathing? (5 years old or older) Answer Date of Assessment Author No 06/19/2024 6:06 PM EDT Krystle Schroeder RN * Because of a physical, mental, or emotional condition, do you have difficulty doing errands alone such as visiting a doctor’s office or shopping? (15 years old or older) Answer Date of Assessment Author Yes 06/19/2024 6:06 PM EDT Krystle Schroeder RN documented as of this encounter Mental Status * Because of a physical, mental, or emotional condition, do you have serious difficulty concentrating, remembering, or making decisions? (5 years old or older) Answer Entry Date Author No 06/19/2024 6:06 PM EDT Krystle Schroeder RN documented in this encounter Discharge Instructions * Discharge Instr - AVS* Elham Gutierrez PA-C - 06/19/2024 9:55 AM EDT Discharge Date: 06/25/2024 You may call Doctor Giordano of the department of [facility] at [phone] during business hours for any questions or test results. After hours emergencies call [facility] at [phone] and samson larkin paged. The information below provides you with the instructions and the list of medications you need to betaking following discharge from the hospital. If you have any questions, please ask before leaving.Please carry this letter with you when you see your doctor in the clinic. If you have questions, you can reach us at the numbers above. Brief summary of your inpatient care: You were admitted and taken to the operating room on 06/19/[address] Giordano for L4-5 decompression and fusion without complications. Post-operatively your incision remained clean and dry. Your extremities remained neurovascularly intact. You progressed well and were discharged when you were stable and your pain was controlled. Your primary diagnosis at discharge was lumbar stenosis Your doctors during this hospitalization included: Pasquale Inpatient test results pending: None Operations & Procedures: L4-5 decompression and fusion Complications: none significant Advance Directive Documented: Advance Directive Does the Patient have an Advance Directive? No Date you may return to work or school: To be addressed at follow up appointment. See your primary care physician (Sheryl Parisi DO) in 2 week(s). DISCHARGE INSTRUCTIONS LUMBAR SPINE SURGERY Hygiene Remove the cover dressing on the first post-operative day, change as needed for one week then remove if not already removed and keep the incision open to air. Underneath the dressing, there are Steri-Strips. Leave them intact as they will dry up and fall off after 1-2 weeks. . You may shower after discharge from the hospital. Do not sit in a tub of water and soak the incision. Do not direct water onto or rub/scrub the incision. Keep the incision as dry as possible when showering. Pat the incision dry after showering. Continue until first post-op appointment. Do not apply any creams, powder or oils near the incision. Diet Resume pre-surgical diet. Activities No heavy lifting (greater than 5-10 pounds). No strenuous activity. You may go up and down stairs as tolerated. You may want to inquire about renting a commode if you have to climb the stairs to use the bathroom. It is advisable to take short frequent walks. Walks outside are fine, weather permitting. Start with a 5 minute walk and gradually increase the length as you are able to tolerate. Your walking shouldnot increase your back pain or cause leg pain. If the pain increases, then stop to rest and decrease the distance or time on the next walk. You may sit for brief periods of time. Sitting increases the stress on your incision and the musclespasms in your back. It is better to walk or lie down to rest. Choose a firm, hard-backed chair on which to sit. Continue to logroll while in bed. Continue to getout of bed by turning first onto your side, then pushing up onto your elbow while lowering your feet over the side of the bed. When you sleep, avoid lying on your stomach for incisional comfort. Do not bend over at the waist. If you must bend, do so at the knees and keep your back straight while stooping and straightening up. No driving or returning to work until your first post-op visit. Although, you may be a passenger jerry vehicle. Your activity progression will be evaluated at the time of your post-op visit. Avoid heavy house and garden work (lifting laundry, running the vacuum, digging, shoveling etc). Only do exercises while lying on your back in bed. Do at least three sets of each per day starting one week after surgery: “Quad sets” - Tighten the muscles in the front of your thigh. Hold for 3 seconds and relax. Repeat 5 times and work up to 10 times. “Abdominal” - Tighten your stomach muscles. Hold for 3 seconds and then relax. Repeat 5 times and work up to 10 times. “Ankle pumps” - With straight knees pull your toes back toward your head as you feel your calf muscle stretch, then point your toes down toward the floor. Repeat 10 times and work up to 20 times. Medications Medication has been prescribed for you in order to help relieve your pain. If you need it, use it. If you have no pain, it is not necessary to take the medication. Your discomfort should gradually lessen over the first seven to ten days. Some pain medications may cause constipation. The use of dpqb-vtu-ecnqvye laxatives is safe (Ex-lax, Correctol, Colace, Milk of Magnesia). When to call the office Please call the clinic office at the number previously provided in the discharge instructions if you notice any of the following symptoms: Redness, swelling, warmth, tenderness or drainage from your incision. Worsening numbness, tingling or changes in sensation or strength of your arms or legs. Difficulty controlling your bladder or bowels. Body temperature over 100 F for more than 2 days. Follow-up If you have any specific questions not covered in these instructions, please feel free to call the office and check with the physician household personal assistant or doctor. If you have an urgent question/issue after normal business hours, please call the warehouse forklift operator and ask for the provider early intervention school psychologist. documented in this encounter H&P Notes * Suzette Alcala PA-C - 06/19/2024 10:24 AM EDT HISTORY & PHYSICAL INTERVAL NOTE [address] [address] History and Physical Update: Name: Martha Lawson Location: [place] [facility] [place] Date: 06/19/2024 Time: 10:24 AM DATE OF HISTORY AND PHYSICAL: 06/02/24 BP: / Pulse: Resp: Temp: Temp Summary: No data recorded SpO2: O2 flow rate: Supplemental O2 Delivery: Does patient take a beta deepali? Yes Did patient stop anticoagulants? Yes Heart Exam: regular rate and rhythm Lung Exam: clear to auscultation bilaterally Other Pertinent Physical Exam: none I have reviewed the H&P previously performed and examined the patient today. There are no new findings noted. The patient has used hibiclens as instructed. Cosigned by Joseph Giordano MD at 06/19/2024 2:56 PM EDT * Suzette Alcala PA-C - 06/02/2024 12:24 PM EDT Orthopaedics Spine Surgery, [place] [address] [facility] [id number] History & Physical Appt Date: 06/02/2024 Chief Complaint: Chief Complaint Patient presents with H&P Surgery Hardware removal L5-S1, L4-5 laminectomy, PSF,PLIF History of Present Illness: Patient is a 64 year old female who presents to the Orthopedic Clinic today for History and Physical for their upcoming Surgery. Patient has had prior surgery in the past.She has persistent low back pain with radicular symptoms bilaterally right greater than left. Despite different modalities she has had minimal relief. After further review of her imaging studies and examination with the surgeon it is determined she would benefit from surgical intervention. She is here to set this up today. Past Medical History: Past Medical History Past Medical History: Diagnosis Date Allergic rhinitis Asthma, allergic no significant exacerbations since bypass ; 2004 Backache 03/04/1990 Backache Depressive disorder, not elsewhere classified 03/04/1984 Depression Fibromyalgia Gastritis and gastroduodenitis 02/27/2007 mild chronic gastritis GERD (gastroesophageal reflux disease) HTN (hypertension) INFORMATION chronic rhinitis Migraine Obesity, BMI not known life long seen at the high risk obsity clinic in [facility] Pancreatitis Spinal stenosis, lumbar Spondylolisthesis Past Surgical History: Past Surgical History Past Surgical History: Procedure Laterality Date ARTHRODESIS, ANT INTERBODY, BELOW C-2 N/A 02/05/2020 ARTHRODESIS, ANT INTERBODY, BELOW C-2 performed by Luis Eduardo Ross MD at OR [facility] AUTOGRAFT, SPINE SURG, MORSELIZED N/A 02/05/2020 OBTAIN AUTOGRAFT FOR SPINE SURGERY MORSELIZED SEPARATE INCISION performed by Luis Eduardo Ross MD at OR [facility] BONE MARROW ASPIRATION BONE GRAFTING SPINE SURGERY ONLY N/A 02/05/2020 BONE MARROW ASPIRATION FOR SPINE BONE GRAFTING performed by Luis Eduardo Ross MD at OR [facility] DELIVERY x 1 COLONOSCOPY, DIAGNOSTIC (RECTUM) 01/15/2012 COLONOSCOPY FLEXIBLE PROXIMAL DIAGNOSTIC performed by Raman Patel MD at [facility] CYSTOSCOPY N/A 08/31/2022 CYSTOURETHROSCOPY performed by Chico Perry MD at OR [facility] EGD, FLEXIBLE, DIAGNOSTIC 03/28/2017 normal/ESOPHAGOGASTRODUODENOSCOPY (EGD), FLEXIBLE, TRANSORAL, DIAGNOSTIC performed by Raman Patel MD at ENDOSCOPY [facility] EGD, FLEXIBLE, DIAGNOSTIC 06/23/2021 z-line regular, Michelle-en-Y gastrojejunostomy w/ gastrojejunal anastomosis/biopsies from your duodenum returned normal / ESOPHAGOGASTRODUODENOSCOPY (EGD), FLEXIBLE, TRANSORAL, DIAGNOSTIC performed by Joana Adam MD at ENDOSCOPY [facility] EGD, FLEXIBLE, DIAGNOSTIC 02/07/2022 normal bx / ESOPHAGOGASTRODUODENOSCOPY (EGD), FLEXIBLE, TRANSORAL, DIAGNOSTIC performed by Joana Adam MD at ENDOSCOPY [facility] EGD, FLEXIBLE, W/BIOPSY 02/27/2007 mild chronic gastritis ENLARGEMENT OF BREAST W/IMPLANT 11/12/2012 MAMMOPLASTY AUGMENTATION WITH IMPLANT performed by Gab Campbell MD at [facility] EXCISION EXCES SKIN,PANNICULECTOMY,INFRAUMB 2006 GASTRIC BYPASS FOR OBESITY GASTRIC BYPASS FOR OBESITY INSERT BIOMECH DEVICE INTERVERTEBRAL DISC SPACE W/ARTHRODESIS N/A 02/05/2020 INSERTION INTERBODY BIOMECHANICAL DEVICE ANTERIOR W/INTERBODY ARTHRODESIS performed by Luis Eduardo Ross MD at OR [facility] LIGATE/CUT OVIDUCT(S) Tubal Ligation LUMBAR SPINE FUSION, POST INTERBODY 02/22/2012 ARTHRODESIS SPINE POSTERIOR INTERBODY WITH LAMINECTOMY LUMBAR performed by Joseph Giordano MD at [facility] LUMBAR SPINE FUSION, POST INTERBODY 03/17/2012 ARTHRODESIS SPINE POSTERIOR INTERBODY WITH LAMINECTOMY LUMBAR performed by Joseph Giordano MD at [facility] LUMBAR SPINE FUSION, POSTEROLATERAL 02/22/2012 ARTHRODESIS SPINE POSTERIOR LUMBAR performed by Joseph Giordano MD at [facility] MAMMOGRAM - BILATERAL 08/07/2004 Birad code 2 benign findings MAMMOGRAM SCREENING-BILATERAL 01/27/2003 birad code 2 MASTOPEXY 11/12/2012 MASTOPEXY performed by Gab Campbell MD at [facility] OTHER surgery L wrist REMOVE EXCESSIVE SKIN, OTHER AREA 11/12/2012 EXCISION EXCESSIVE SKIN AND SUBCUTANEOUS TISSUE OTHER performed by Gab Campbell MD at [facility] REMOVE EXCESSIVE SKIN, OTHER AREA N/A 03/23/2014 EXCISION EXCESSIVE SKIN AND SUBCUTANEOUS TISSUE OTHER performed by Gab Campbell MD at [place] [facility] REMOVE EXCESSIVE SKIN/TISSUE, THIGH 11/12/2012 EXCISION EXCESSIVE SKIN AND SUBCUTANEOUS TISSUE THIGH performed by Gab Campbell MD at [place] [facility] [place] REMOVE LUMBAR SPINE LAMINA, 1 SEG 02/22/2012 LAMINECTOMY FACETECTOMY AND FORAMINOTOMY POSTERIOR LUMBAR performed by Joseph Giordano MD at [facility] REMOVE SPINE FIXATION DEVICE, POST 08/14/2013 REMOVAL POSTERIOR SPINAL NONSEGMENTAL INSTRUMENTATION performed by Joseph Giordano MD at [place] [facility] [place] REPAIR BLADDER DEFECT N/A 08/31/2022 VAGINAL SLING PROCEDURE FOR STRESS INCONTINENCE performed by Chico Perry MD at [facility] SACROILIAC JOINT INJECT W/GUIDANCE 02/09/2014 INJECTION SACROILIAC JOINT performed by Mateo Christian DO at [facility] SACROILIAC JOINT INJECT W/GUIDANCE 02/23/2014 INJECTION SACROILIAC JOINT performed by Mateo Christian DO at [facility] SKIN TISSUE REARRANGEMENT 11/12/2012 SKIN TISSUE REARRANGEMENT performed by Gab Campbell MD at [place] [facility] [place] SKIN TISSUE REARRANGEMENT, ADD-ON 11/12/2012 SKIN TISSUE REARRANGEMENT, ADD-ON performed by Gab Campbell MD at [place] [facility] [place] SPINE FIX DEV, ANT, 3 SEG, INSERT N/A 02/05/2020 ANTERIOR INSTRUMENTATION 2 TO 3 VERTEBRAL SEGMENT performed by Luis Eduardo Ross MD at OR [facility] SUCTION REMOVE FAT TISSUE, LEGS 11/12/2012 SUCTION ASSISTED LIPECTOMY LOWER EXTREMITY performed by Gab Campbell MD at [place] [facility] [place] TOTAL ABD HYSTERECTOMY W/WO REMOVAL OF TUBE(S) 11/24/2007 with BSO VAGINAL DELIVERY ONLY times 3 Allergies: Allergies Review of patient's allergies indicates: Allergen Reactions Other Allergy (See Comments) Rash Dermabond prineo Nsaids Hx gastric bypass Penicillins Rash, last dose was in her 20's Sulfa Antibiotics Rash in her early 20's Medications: Current Medications Current Outpatient Medications Medication Sig Dispense Refill Alendronate Sodium 70 MG Oral Tablet (Fosamax) Take 1 Tablet by mouth once a week. 12 Tablet 3 AZO Cranberry 250-30 MG Oral Tablet Take 1 Tablet by mouth daily. Biofreeze Roll-On 4 % External Gel (Menthol (Topical Analgesic)) Apply topically to affected area. Apply topically to affected areas as needed buPROPion HCl 100 MG Oral Tablet (Wellbutrin) Take 1 Tablet by mouth in the morning and 1 Tablet before bedtime. 60 Tablet 2 Calcium Citrate-Vitamin D 500-10 MG-MCG Oral Tablet Chewable Take 1 Tablet by mouth 2 times a day. Continuation of patient use of medical marijuana is approved Use as directed. [facility] IRON 45 MG PO TABS Take 1 Tablet by mouth in the morning. Dry Eye Relief Drops 0.2-0.2-1 % Ophthalmic Solution (Tpdmccke-Zjcoknanpsnx-HHC 400) Instill 1 Dropinto eye as needed for Dry eyes. Hair Skin & Nails Advanced Oral Tablet Take 1 Tablet by mouth daily. Lisinopril 2.5 MG Oral Tablet (Prinivil) Take 1/2 tablet by mouth daily 45 Tablet 3 LORazepam 0.5 MG Oral Tablet (Ativan) Take 1 Tablet by mouth as needed for Anxiety. (Patient takingdifferently: Take 0.5 Tablets by mouth as needed for Anxiety.) 15 Tablet 2 Metoclopramide HCl 5 MG Oral Tablet (Reglan) Take 1 Tablet by mouth every 4 hours as needed for Nausea. 20 Tablet 0 Metoprolol Tartrate 25 MG Oral Tablet (Lopressor) TAKE ONE-HALF TABLET BY MOUTH IN THE MORNING AND ONE-HALF TABLET BEFORE BEDTIME 90 Tablet 2 MULTIVITAMINS PO CAPS Take 1 Capsule by mouth every evening. oxyBUTYnin Chloride ER 15 MG Oral Tablet Extended Release 24 Hour (Ditropan XL) Take 2 Tablets by mouth in the morning. 180 Tablet 3 Pantoprazole Sodium 40 MG Oral Tablet Delayed Release (Protonix) TAKE ONE TABLET BY MOUTH TWICE A DAY 30 MINUTES BEFORE MEALS; DO NOT CRUSH, CUT OR CHEW (Patient taking differently: Take 1 Tablet by mouth in the morning.) 180 Tablet 2 Potassium Chloride Erin ER 10 MEQ Oral Tablet Extended Release TAKE ONE TABLET BY MOUTH EVERY DAY 100 Tablet 1 Primidone 50 MG Oral Tablet (Mysoline) Take one-half tablet by mouth twice daily 180 Tablet 0 traZODone HCl 150 MG Oral Tablet (Desyrel) Take 1 Tablet by mouth at bedtime. 90 Tablet 1 Trintellix 20 MG Oral Tablet (Vortioxetine HBr) Take 1 Tablet by mouth in the morning. 90 Tablet 1 Vitamin D-[address] 25 MCG (1000 UT) Oral Tablet (Cholecalciferol) Take 1 Tablet by mouth every evening. No current facility-administered medications for this visit. Facility-Administered Medications Ordered in Other Visits Medication Dose Route Frequency Provider Last Rate Last Admin glycopyrrolate (ROBINUL) inj Once PRN Tj Rincon [employer]ER 0.6 mg at 02/22/12 1103 neostigmine methylsulfate (PROSTIGMIN) 1 MG/ML inj Once PRN Tj Rincon [employer]OP[employer] PLAYER 3 mg at 02/22/12 1103 Social History: Social History Socioeconomic History Marital status: Spouse name: Not on file Number of children: 4 Years of education: Not on file Highest education level: Not on file Occupational History Employer: [employer] Comment: medical disability Tobacco Use Smoking status: Former Current packs/day: 0.00 Average packs/day: 0.3 packs/day for 15.0 years (3.8 ttl pk-yrs) Types: Cigarettes Start date: 07/12/2001 Quit date: 07/12/2016 Years since quittin.8 Passive exposure: Past Smokeless tobacco: Never Vaping Use Vaping status: Every Day Substances: THC, CBD Devices: Disposable, Pre-filled or refillable cartridge Substance and Sexual Activity Alcohol use: Not Currently Comment: seldom Drug use: Yes Types: Marijuana Comment: Marijuana w/ medical care for back pain Sexual activity: Yes Partners: Male control/protection: Surgical Other Topics Concern Service No Blood Transfusions Yes Caffeine Concern Yes Comment: 3-4 cups coffee / day Occupational Exposure No Hobby Hazards No Sleep Concern Yes Stress Concern No Weight Concern No Special Diet No Back Care No Exercise No Bike Helmet Not Asked Seat Belt Yes Self-Exams Yes Social History Narrative Not on file Social Needs Financial Resource Strain: Low Risk (05/04/2024) Financial Resource Strain Do you have any trouble paying for your medications, or do you think you might in the future? (Adult - for ages 18 years and over): No Does your family have trouble paying for medicine? (Household - for ages 0-17 years): Not on file Food Insecurity: No Food Insecurity (05/04/2024) Food Insecurity Worried About Running Out of Food in the Last Year: Never true Ran Out of Food in the Last Year: Never true Do you need food for this week? (Adult - for ages 18 years and over): No Transportation Needs: No Transportation Needs (05/04/2024) Transportation Needs Do you have trouble getting a ride to medical visits or work? (Adult - for ages 18 years and over):Not on file Does your family have a hard time getting a ride to doctors’ visits? (Household - for ages 0-17 years): Not on file Has lack of transportation kept you from medical appointments, meetings, work, or from getting things needed for daily living? Check all that apply. (Adult - for ages 18 years and over): No Do you (or your family) have trouble finding or paying for a ride (transportation)? (Household - for ages 0-17 years): Not on file Social Connections: Socially Integrated (05/04/2024) Social Connections How often do you feel lonely or isolated from those around you? (Adult - for ages 18 years and over): Never Housing Stability: Low Risk (05/04/2024) Housing Stability Do you currently live in a retirement or have no steady place to sleep at night? (Adult - for ages 18 years and over): No Do you think you are at risk of becoming homeless? (Adult - for ages 18 years and over): Not on file Does your family worry about paying for your home or becoming homeless? (Household - for ages 0-17 years): Not on file Are you homeless or worried that you might be in the future? (Adult - for ages 18 years and over): No Are you (or your family) homeless or worried that you might be in the future? (Household - for ages0-17 years): Not on file Family History: Family History Family History Problem Relation Name Age of Onset Other (ovarian ca[Other]) Mother Thyroid Disorder Mother Cancer Mother Barby Fye Ovarian Ear Problems Mother Barby Fye Thyroid Disorder Mother Barby Fye Allergies Mother Barby Fye Heart Disorder Father triple by pass Lung Disorder Father sleep apnea Glaucoma Father B. [place] Fye Heart Disorder Father B. [place] Fye Hypertension Father B. [place] Fye Other (barber siri[Other]) Brother bilateral hip replacement Heart Disorder Grandmother (Maternal) Saba Coyneon Hypertension Grandmother (Maternal) Saba Coyneon Arthritis Grandmother (Maternal) [place] Diabetes Grandmother (Maternal) [place] Heart Disorder Grandfather (Maternal) Bharath De Dios Hypertension Grandfather (Maternal) Bharath De Dios Cancer Grandmother (Paternal) [place] Fye Breast Heart Disorder Grandfather (Paternal) Go Fye Hypertension Grandfather (Paternal) Go Fye Lung Disorder Grandfather (Paternal) Go Fye Black Lung Stroke Grandfather (Paternal) Go Fye Gastro-intestinal disorder Daughter reflux Ear Problems Daughter Lyndsey Rhodes Obesity Daughter Lyndsey Rhodes Gastro-intestinal disorder Daughter Delaney Rhodes Depression Daughter Delaney Rhodes Gastro-intestinal disorder Son reflux Diabetes Son Diabetes Son Rex Rhodes OCD Son Rex Rhodes Ear Problems Son [place] Rhodes Other (breast ca[Other]) Other Other (htn[Other]) Other Other (dm[Other]) Other Other (cva[Other]) Other Review of Systems: Review of Systems Musculoskeletal: Positive for back pain and myalgias. Neurological: Positive for numbness. All other systems reviewed and are negative. Physical Exam: Ht 1.549 m (5' 1") | Wt 57.7 kg (127 lb 1.6 oz) | LMP 03/18/2007 | BMI 24.02 kg/m² | BSA 1.58 m² Physical Exam Vitals and nursing note reviewed. Constitutional: General: She is not in acute distress. Appearance: Normal appearance. HENT: Head: Normocephalic and atraumatic. Eyes: Extraocular Movements: Extraocular movements intact. Conjunctiva/sclera: Conjunctivae normal. Cardiovascular: Rate and Rhythm: Normal rate and regular rhythm. Pulmonary: Effort: Pulmonary effort is normal. Breath sounds: Normal breath sounds. Musculoskeletal: General: Normal range of motion. Cervical back: Neck supple. Skin: General: Skin is warm. Neurological: Mental Status: She is alert and oriented to person, place, and time. Sensory: Sensory deficit present. Motor: No weakness. Comments: SILT - decreased R>L Psychiatric: Mood and Affect: Mood normal. Behavior: Behavior normal. Imaging: CT L SPINE WO CONTRAST Result Date: 03/31/2024 IMPRESSION Postsurgical changes at L5-S1 consisting of laminectomies discectomy with partial fusionacross the disc space. 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 MRI L SPINE W WO CONTRAST Result Date: 01/22/2024 IMPRESSION: 1. Postsurgical and degenerative changes of the lumbar spine, detailed above. Findings are similar to slightly progressed when compared to MRI lumbar spine dated 09/14/2016. 2. 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 3. Chronic severe compression deformity of T12 vertebral body with stable 5-mm retropulsion of the superior-posterior endplate. I personally reviewed and interpreted the above imaging studies and agree with radiology impression. Assessment: (Z01.818) Preoperative examination (primary encounter diagnosis) (M48.062) Spinal stenosis of lumbar region with neurogenic claudication (Z98.1) History of lumbar fusion Plan: Surgery Scheduled for: 06/19/24 Type of Surgery: HWR L5-S1, L4-5 lami/psf/plif Pre-Op Labs Ordered Consent obtained Med Contract Signed Hibiclens scrub was given. Nasal swab was performed. Presurgical education was completed at today's visit. Postoperative pain management per Anesthesia for evaluation and placement of regional anesthesia toreduce the need for opioid pain medication. Suzette Alcala PA-C Orthopaedics Spine Surgery[address] [address] Cosigned by Joseph Giordano MD at 06/03/2024 7:20 AM EDT documented in this encounter Procedure Notes * Akash Terrell MD - 06/20/2024 3:47 AM EDTAssociated Order(s): EKG REASON FOR STUDY: Chest pain CONCLUSIONS: Normal sinus rhythm Normal ECG When compared with ECG of 02-Jun-2024 12:08, QT has lengthened Ventricular Rate: 69 Atrial Rate: 69 UT Interval: 148 QRS Duration: 72 QT/QTc: 430/460 ms P-R-T [place]: 48 : 22 : 40 degrees documented in this encounter Consult Notes * Georges Quinn RN - 06/22/2024 8:44 AM EDTAssociated Order(s): BLOOD MANAGEMENT CONSULT IP CONSULT - Patient Blood Management [address] [address] Name: Martha Lawson [place] [facility] [place] [facility] Date: 06/22/2024 Time: 8:44 AM REQUESTING SERVICE: [facility] [place] Ortho spine REASON FOR CONSULT: new evaluation inpatient, ABLA Recent hemorrhage: no History of prior anemia: no Recent surgery: yes Anemia Evaluation: Latest Reference Range & Units 06/02/24 12:42 06/20/24 06:15 06/21/24 05:48 06/22/24 06:02 HGB 12.0 - 15.3 g/dL 12.2 6.7 (L) 8.4 (L) 8.6 (L) HCT 36.0 - 45.2 % 37.7 20.9 (L) 26.0 (L) 27.0 (L) (L): Data is abnormally low Current Patient Medications: Medications that may impair hemostasis: none Medications that may impair iron absorption: protonix Patient Refused Blood Transfusion? (e.g. Restorationist): no Possible Contributing Factors: acute blood loss Treatment Recommendations: If no active hemorrhage, consider PRBC transfusion only for severe anemia and use a 1 unit PRBC dose followed by a repeat clinical assessment. Limit and coordinate blood draws to prevent iatrogenic anemia. Infed 1000mg IVPB once B12 1mg daily Folic acid 1mg daily vitamin daily x 2 months on D/C for ABLA Follow-up Recommendations: Follow up with PCP for further assessment/management of anemia post discharge. Will follow up with Ortho spine. Thank you for allowing Blood Management to participate in the care of this patient. * Dave Ford OT - 06/21/2024 9:50 AM EDTAssociated Order(s): ADULT OCCUPATIONAL THERAPY CONSULT IP GENERAL EVALUATION- Occupational Therapy [address] [address] Name: Martha Lawson Location: [facility] [place] [facility] Date: 06/21/2024 Time: 9:50 AM HPI: Per ROBYN, "Patient is a 64 year old female who presents to the Orthopedic Clinic today for History and Physical for their upcoming Surgery. Patient has had prior surgery in the past. She has persistent low back pain with radicular symptoms bilaterally right greater than left. Despite differentmodalities she has had minimal relief. After further review of her imaging studies and examination with the surgeon it is determined she would benefit from surgical intervention. She is here to set this up today." Patient Status: Inpatient Insurance: Payor: [employer] Plan: [employer] SECURE 1 AND 3 MC-ND Product Type: *No Product type* Payor: [employer] [place] Plan: HeadCount [facility] Product Type: O Payor: [facility] Plan: [employer] [facility] [facility] PSYCH CARVEOUT Product Type: *No Product type* Patient Seen: at bedside, nursing cleared patient for therapy Patient Identified By: Name, ID Band and Date Diagnosis: s/p L4-5 lami/psf/plif (06/21/24949) Status of treatment: Evaluation completed (06/21/2450) Orders: OT evaluation and treatment (06/21/24 0950) Weight Bearing Status: Weight bearing as tolerated (06/21/24 0950) Precautions: Spine precautions (06/21/24 0950) Total Treatment Time: 15 (06/21/24 0950) Past Medical History: Past Medical History: Diagnosis Date Allergic rhinitis Asthma, allergic no significant exacerbations since bypass ; 2005 Backache 03/04/1990 Backache Depressive disorder, not elsewhere classified 03/04/1984 Depression Fibromyalgia Gastritis and gastroduodenitis 02/27/2007 mild chronic gastritis GERD (gastroesophageal reflux disease) HTN (hypertension) INFORMATION chronic rhinitis Migraine Obesity, BMI not known life long seen at the high risk obsity clinic [place] [facility] [place] Pancreatitis Spinal stenosis, lumbar Spondylolisthesis Past Surgical History: Past Surgical History: Procedure Laterality Date ARTHRODESIS, ANT INTERBODY, BELOW C-2 N/A 02/05/2020 ARTHRODESIS, ANT INTERBODY, BELOW C-2 performed by Luis Eduardo Ross MD at OR [facility] AUTOGRAFT, SPINE SURG, MORSELIZED N/A 02/05/2020 OBTAIN AUTOGRAFT FOR SPINE SURGERY MORSELIZED SEPARATE INCISION performed by Luis Eduardo Ross MD at OR [facility] BONE MARROW ASPIRATION BONE GRAFTING SPINE SURGERY ONLY N/A 02/05/2020 BONE MARROW ASPIRATION FOR SPINE BONE GRAFTING performed by Luis Eduardo Ross MD at OR [facility] DELIVERY x 1 COLONOSCOPY, DIAGNOSTIC (RECTUM) 01/15/2012 COLONOSCOPY FLEXIBLE PROXIMAL DIAGNOSTIC performed by Raman Patel MD at [facility] CYSTOSCOPY N/A 08/31/2022 CYSTOURETHROSCOPY performed by Chico Perry MD at [facility] EGD, FLEXIBLE, DIAGNOSTIC 03/28/2017 normal/ESOPHAGOGASTRODUODENOSCOPY (EGD), FLEXIBLE, TRANSORAL, DIAGNOSTIC performed by Raman Patel MD at ENDOSCOPY [facility] EGD, FLEXIBLE, DIAGNOSTIC 06/23/2021 z-line regular, Michelle-en-Y gastrojejunostomy w/ gastrojejunal anastomosis/biopsies from your duodenum returned normal / ESOPHAGOGASTRODUODENOSCOPY (EGD), FLEXIBLE, TRANSORAL, DIAGNOSTIC performed by Joana Adam MD at ENDOSCOPY [facility] EGD, FLEXIBLE, DIAGNOSTIC 02/07/2022 normal bx / ESOPHAGOGASTRODUODENOSCOPY (EGD), FLEXIBLE, TRANSORAL, DIAGNOSTIC performed by Joana Adam MD at ENDOSCOPY [facility] EGD, FLEXIBLE, W/BIOPSY 02/27/2007 mild chronic gastritis ENLARGEMENT OF BREAST W/IMPLANT 11/12/2012 MAMMOPLASTY AUGMENTATION WITH IMPLANT performed by Gab Campbell MD at [facility] EXCISION EXCES SKIN,PANNICULECTOMY,INFRAUMB 2006 GASTRIC BYPASS FOR OBESITY GASTRIC BYPASS FOR OBESITY INSERT BIOMECH DEVICE INTERVERTEBRAL DISC SPACE W/ARTHRODESIS N/A 02/05/2020 INSERTION INTERBODY BIOMECHANICAL DEVICE ANTERIOR W/INTERBODY ARTHRODESIS performed by Luis Eduardo Ross MD at OR [facility] LIGATE/CUT OVIDUCT(S) Tubal Ligation LUMBAR SPINE FUSION, POST INTERBODY 02/22/2012 ARTHRODESIS SPINE POSTERIOR INTERBODY WITH LAMINECTOMY LUMBAR performed by Joseph Giordano MD at [facility] LUMBAR SPINE FUSION, POST INTERBODY 03/17/2012 ARTHRODESIS SPINE POSTERIOR INTERBODY WITH LAMINECTOMY LUMBAR performed by Joseph Giordano MD at [facility] LUMBAR SPINE FUSION, POSTEROLATERAL 02/22/2012 ARTHRODESIS SPINE POSTERIOR LUMBAR performed by Joseph Giordano MD at [facility] MAMMOGRAM - BILATERAL 08/07/2004 Birad code 2 benign findings MAMMOGRAM SCREENING-BILATERAL 01/27/2003 birad code 2 MASTOPEXY 11/12/2012 MASTOPEXY performed by Gab Campbell MD at [place] [facility] [place] OTHER surgery L wrist REMOVE EXCESSIVE SKIN, OTHER AREA 11/12/2012 EXCISION EXCESSIVE SKIN AND SUBCUTANEOUS TISSUE OTHER performed by Gab Campbell MD at [place] [facility] [place] REMOVE EXCESSIVE SKIN, OTHER AREA N/A 03/23/2014 EXCISION EXCESSIVE SKIN AND SUBCUTANEOUS TISSUE OTHER performed by Gab Campbell MD at [place] [facility] REMOVE EXCESSIVE SKIN/TISSUE, THIGH 11/12/2012 EXCISION EXCESSIVE SKIN AND SUBCUTANEOUS TISSUE THIGH performed by Gab Campbell MD at [place] [facility] [place] REMOVE LUMBAR SPINE LAMINA, 1 SEG 02/22/2012 LAMINECTOMY FACETECTOMY AND FORAMINOTOMY POSTERIOR LUMBAR performed by Joseph Giordano MD at [facility] REMOVE SPINE FIXATION DEVICE, POST 08/14/2013 REMOVAL POSTERIOR SPINAL NONSEGMENTAL INSTRUMENTATION performed by Joseph Giordano MD at [place] [facility] [place] REPAIR BLADDER DEFECT N/A 08/31/2022 VAGINAL SLING PROCEDURE FOR STRESS INCONTINENCE performed by Chico Perry MD at [facility] SACROILIAC JOINT INJECT W/GUIDANCE 02/09/2014 INJECTION SACROILIAC JOINT performed by Mateo Christian DO at [facility] SACROILIAC JOINT INJECT W/GUIDANCE 02/23/2014 INJECTION SACROILIAC JOINT performed by Mateo Christian DO at [facility] SKIN TISSUE REARRANGEMENT 11/12/2012 SKIN TISSUE REARRANGEMENT performed by Gab Campbell MD at [place] [facility] [place] SKIN TISSUE REARRANGEMENT, ADD-ON 11/12/2012 SKIN TISSUE REARRANGEMENT, ADD-ON performed by Gab Campbell MD at [facility] SPINE FIX DEV, ANT, 3 SEG, INSERT N/A 02/05/2020 ANTERIOR INSTRUMENTATION 2 TO 3 VERTEBRAL SEGMENT performed by Luis Eduardo Ross MD at OR [facility] SUCTION REMOVE FAT TISSUE, LEGS 11/12/2012 SUCTION ASSISTED LIPECTOMY LOWER EXTREMITY performed by Gab Campbell MD at [facility] TOTAL ABD HYSTERECTOMY W/WO REMOVAL OF TUBE(S) 11/24/2007 with BSO VAGINAL DELIVERY ONLY times 3 Social History/Disposition Lives with: Alone (06/21/24949) Assistance available: No (06/21/24949) Dwelling Type: Apartment (06/21/24949) Entry Steps: Elevator (06/21/24949) Bedroom Location: 1st floor (06/21/24949) Bath location: 1st floor full bath (06/21/24949) Prior Level of Function Reported by: Patient (06/21/24949) Ambulation: Ambulatory with device (06/21/24949) Ambulatory Device: Cane (06/21/24949) Grooming: Independent (06/21/24949) Bathing: Independent (06/21/24949) Dressing: Independent (06/21/24949) Eating: Independent (06/21/24949) Toileting: Independent (06/21/24949) Meal Prep: Independent (06/21/24949) Durable Medical Equipment at home: Rolling walker;Rollator;Straight cane (06/21/24949) Observations Consciousness: Alert (06/21/24949) Orientation: Oriented times 4 (06/21/24949) Psychosocial: Patient can communicate basic needs;Patient can converse in a social setting (06/21/24949) Sitting posture: Forward head;Rounded shoulders (06/21/2450) Standing posture: Forward head;Rounded shoulders (06/21/24949) Safety awareness: The Patient verbalizes insight of current deficits.;The Patient demonstrates carryover of insight during functional tasks. (06/21/24949) Pain: Patient has complaints of surgical site pain Current Functional Status: UE Strength/ROM: BUE are WFL and 4/5 grossly Bed Mobility Roll (Right): Supervision (06/21/24949) Sidelying - Sit: Supervision (06/21/24949) OT Transfers Sit-Stand: Contact Guard (06/21/2450) Stand-Sit: Contact Guard (06/21/2450) Bed-Chair: Contact Guard (06/21/24949) Functional Ambulation Assistive Device: Rolling walker (06/21/24949) Distance in feet:: 5 (06/21/24949) Level of Assistance: Contact Guard (06/21/24949) Balance Sit (Static): Fair + (06/21/24949) Sit (Dynamic): Fair + (06/21/24949) Stand (Static): Fair (06/21/24949) Stand (Dynamic): Fair (06/21/24949) Dressing Upper Body: Supervision (to don gown) (06/21/24949) Lower Body: Dependent (to don socks) (06/21/24949) Patient and or Family Goal(s): None Alarm Status Patient positioned in: Chair (06/21/24949) With: Pressure pad alarm intact and functioning and call johnson in reach (06/21/24949) Following session patient seated OOB in chair with chair alarm activated and cord plugged into callbell system. Treatment Provided: Evaluation Low Complexity 15 minutes - 07020: Patient was cooperative during treatment session. Low complexity evaluation performed and ADL deficit and functional mobility deficitdeficits were identified that result in activity limitation. The patient does not have any comorbidities that affect occupational performance. There were no modifications necessary to complete the evaluation. Patient Education Education Topic: Role of OT;Plan of care goals (06/21/24949) Review of Precautions: Safety;Fall;Spine Precautions (06/21/24949) Method of Education: Verbalized to patient (06/21/24949) Education Provided to: Patient (06/21/24949) Response to Education: Receptive and agreeable to education (06/21/24949) Barriers to learning: None (06/21/24949) Preferred learning method: Combination (06/21/24949) Method of Education: Verbal discussion and explanation provided to patient: verbalized understanding and or agreement of this information Assessment: Patient is a 64 year old female admitted on being seen s/p L4-5 lami/psf/plif. She was previously living at home and reports being independent for ADLs/mobility. On exam, patient was able to complete bed mobility with supervision only. While edge of bed, she was able to don hospital gown with supervision, however, was dependent to don socks as she could not reach LEs while maintaining spine precautions. She may benefit from use of adaptive dressing equipment. Patient was ableto ambulate in room using walker with contact guarding due to unsteadiness. She would benefit from ongoing acute OT services to improve function. Of note, she reports limited to no assistance at home. Please consider post-acute care services which may include home health, senior care, outpatient therapy or inpatient rehabilitation. The level of care will be determined in collaboration with patient, family/caregiver and care team members. AM-PAC Help From Another Person Eating Meals: None (06/21/24949) Help From Another Person Taking Care of Personal Grooming: A little (06/21/24949) Help From Another Person To Put On/Take Off Upper Body Clothing: A little (06/21/24949) Help From Another Person To Put On/Take Off Lower Body Clothing: Total (06/21/24949) Help From Another Person Toileting: A lot (06/21/24949) Help From Another Person Bathing: A lot (06/21/24949) OT AM-PAC Score: 15 (06/21/24949) OT AM-PAC t-Scale Score: 34.69 (06/21/24949) HLM (Highest Level of Mobility) Goal: Level 6 walk 10 steps or more (06/20/241999) A portion of this AM-PAC assessment not scored based on functional assessment; rather clinical decision making was utilized based on current findings and/or prior level of function. Please refer to future AM-PAC calculations of functional ability as they become available. Deficits requiring O.T. treatment needs: ADL/self- care;Balance;Endurance;Functional mobility;IADL;Upper extremity strength;Safety;Weakness (06/21/24949) Goals: Increase Strength of BUE to 5/5 in all areas Demonstrate sitting Balance of Fair+ Demonstrate standing Balance of Fair+ Demonstrate self care at modified independence for all UB and LB tasks Demonstrate toileting with modified independence Demonstrate Bed Mobility with modified independence Demonstrate Transfers with modified independence Demonstrate Functional Ambulation with modified independence Treatment Plan: Accuracy with Precautions, Safety, Bed mobility training, Functional Ambulation, Transfer training, Coordination Tasks, Upper extremity strengthening, Balance activities, ADL training, and Endurance Goal Time Frame:8 visits Anticipated Frequency (on eval): 3 to 5 days per week (06/21/24949) * Alexandria Winchester, PT - 06/21/2024 9:50 AM EDTAssociated Order(s): ADULT PHYSICAL THERAPY CONSULT IP GENERAL EVALUATION - Physical Therapy [address] [address] Name: Martha Lawson [place] [facility] [place] H[place] Date: 06/21/2024 Time: 9:50 AM Martha Lawson is a/an 64 year old female. Patient Status: Inpatient Insurance: Payor: [employer] Plan: [employer] SECURE 1 AND 3 MC-ND Product Type: *No Product type* Payor: [employer] [place] Plan: [employer] [facility] Product Type: O Payor: [employer] [facility] Plan: [employer] PSYCH CARVEOUT Product Type: *No Product type* Patient Seen: at bedside, nursing cleared patient for therapy Patient Identified By: Name, ID Band and Date Diagnosis: spinal stenosis and s/p laminectomy, disckectomy, and fusion and dural tear (06/21/24949) Status of treatment: Evaluation completed (06/21/24949) Orders: PT evaluation and treatment (06/21/24949) Precautions: Spine precautions (chairez, homero, alarms, falls, safety) (06/21/24949) Total Treatment Time--free text: 12 (06/21/24949) Past Medical History: Past Medical History: Diagnosis Date Allergic rhinitis Asthma, allergic no significant exacerbations since bypass ; 2005 Backache 03/04/1990 Backache Depressive disorder, not elsewhere classified 03/04/1984 Depression Fibromyalgia Gastritis and gastroduodenitis 02/27/2007 mild chronic gastritis GERD (gastroesophageal reflux disease) HTN (hypertension) INFORMATION chronic rhinitis Migraine Obesity, BMI not known life long seen at the [facility] [place] clinic [place] [facility] [place] Pancreatitis Spinal stenosis, lumbar Spondylolisthesis Past Surgical History: Past Surgical History: Procedure Laterality Date ARTHRODESIS, ANT INTERBODY, BELOW C-2 N/A 02/05/2020 ARTHRODESIS, ANT INTERBODY, BELOW C-2 performed by Luis Eduardo Ross MD at OR [facility] AUTOGRAFT, SPINE SURG, MORSELIZED N/A 02/05/2020 OBTAIN AUTOGRAFT FOR SPINE SURGERY MORSELIZED SEPARATE INCISION performed by Luis Eduardo Ross MD at [facility] BONE MARROW ASPIRATION BONE GRAFTING SPINE SURGERY ONLY N/A 02/05/2020 BONE MARROW ASPIRATION FOR SPINE BONE GRAFTING performed by Luis Eduardo Ross MD at OR [facility] DELIVERY x 1 COLONOSCOPY, DIAGNOSTIC (RECTUM) 01/15/2012 COLONOSCOPY FLEXIBLE PROXIMAL DIAGNOSTIC performed by Raman Patel MD at [facility] CYSTOSCOPY N/A 08/31/2022 CYSTOURETHROSCOPY performed by Chico Perry MD at [facility] EGD, FLEXIBLE, DIAGNOSTIC 03/28/2017 normal/ESOPHAGOGASTRODUODENOSCOPY (EGD), FLEXIBLE, TRANSORAL, DIAGNOSTIC performed by Raman Patel MD at ENDOSCOPY [facility] EGD, FLEXIBLE, DIAGNOSTIC 06/23/2021 z-line regular, Michelle-en-Y gastrojejunostomy w/ gastrojejunal anastomosis/biopsies from your duodenum returned normal / ESOPHAGOGASTRODUODENOSCOPY (EGD), FLEXIBLE, TRANSORAL, DIAGNOSTIC performed by Joana Adam MD at [facility] EGD, FLEXIBLE, DIAGNOSTIC 02/07/2022 normal bx / ESOPHAGOGASTRODUODENOSCOPY (EGD), FLEXIBLE, TRANSORAL, DIAGNOSTIC performed by Joana Adam MD at [facility] EGD, FLEXIBLE, W/BIOPSY 02/27/2007 mild chronic gastritis ENLARGEMENT OF BREAST W/IMPLANT 11/12/2012 MAMMOPLASTY AUGMENTATION WITH IMPLANT performed by Gab Campbell MD at [facility] EXCISION EXCES SKIN,PANNICULECTOMY,INFRAUMB 2006 GASTRIC BYPASS FOR OBESITY GASTRIC BYPASS FOR OBESITY INSERT BIOMECH DEVICE INTERVERTEBRAL DISC SPACE W/ARTHRODESIS N/A 02/05/2020 INSERTION INTERBODY BIOMECHANICAL DEVICE ANTERIOR W/INTERBODY ARTHRODESIS performed by Luis Eduardo Ross MD at OR [facility] LIGATE/CUT OVIDUCT(S) Tubal Ligation LUMBAR SPINE FUSION, POST INTERBODY 02/22/2012 ARTHRODESIS SPINE POSTERIOR INTERBODY WITH LAMINECTOMY LUMBAR performed by Joseph Giordano MD at [facility] LUMBAR SPINE FUSION, POST INTERBODY 03/17/2012 ARTHRODESIS SPINE POSTERIOR INTERBODY WITH LAMINECTOMY LUMBAR performed by Joseph Giordano MD at [facility] LUMBAR SPINE FUSION, POSTEROLATERAL 02/22/2012 ARTHRODESIS SPINE POSTERIOR LUMBAR performed by Joseph Giordano MD at [place] [facility] [place] MAMMOGRAM - BILATERAL 08/07/2004 Birad code 2 benign findings MAMMOGRAM SCREENING-BILATERAL 01/27/2003 birad code 2 MASTOPEXY 11/12/2012 MASTOPEXY performed by Gab Campbell MD at [place] [facility] [place] OTHER surgery L wrist REMOVE EXCESSIVE SKIN, OTHER AREA 11/12/2012 EXCISION EXCESSIVE SKIN AND SUBCUTANEOUS TISSUE OTHER performed by Gab Campbell MD at [place] [facility] [place] REMOVE EXCESSIVE SKIN, OTHER AREA N/A 03/23/2014 EXCISION EXCESSIVE SKIN AND SUBCUTANEOUS TISSUE OTHER performed by Gab Campbell MD at [place] [facility] [place] REMOVE EXCESSIVE SKIN/TISSUE, THIGH 11/12/2012 EXCISION EXCESSIVE SKIN AND SUBCUTANEOUS TISSUE THIGH performed by Gab Campbell MD at [place] [facility] [place] REMOVE LUMBAR SPINE LAMINA, 1 SEG 02/22/2012 LAMINECTOMY FACETECTOMY AND FORAMINOTOMY POSTERIOR LUMBAR performed by Joseph Giordano MD at [facility] REMOVE SPINE FIXATION DEVICE, POST 08/14/2013 REMOVAL POSTERIOR SPINAL NONSEGMENTAL INSTRUMENTATION performed by Joseph Giordano MD at [place] [facility] [place] REPAIR BLADDER DEFECT N/A 08/31/2022 VAGINAL SLING PROCEDURE FOR STRESS INCONTINENCE performed by Chico Perry MD at [facility] SACROILIAC JOINT INJECT W/GUIDANCE 02/09/2014 INJECTION SACROILIAC JOINT performed by Mateo Christian DO at [facility] SACROILIAC JOINT INJECT W/GUIDANCE 02/23/2014 INJECTION SACROILIAC JOINT performed by Mateo Christian DO at [facility] SKIN TISSUE REARRANGEMENT 11/12/2012 SKIN TISSUE REARRANGEMENT performed by Gab Campbell MD at [place] [facility] [place] SKIN TISSUE REARRANGEMENT, ADD-ON 11/12/2012 SKIN TISSUE REARRANGEMENT, ADD-ON performed by Gab Campbell MD at [facility] SPINE FIX DEV, ANT, 3 SEG, INSERT N/A 02/05/2020 ANTERIOR INSTRUMENTATION 2 TO 3 VERTEBRAL SEGMENT performed by Luis Eduardo Ross MD at OR [facility] SUCTION REMOVE FAT TISSUE, LEGS 11/12/2012 SUCTION ASSISTED LIPECTOMY LOWER EXTREMITY performed by Gab Campbell MD at [facility] TOTAL ABD HYSTERECTOMY W/WO REMOVAL OF TUBE(S) 11/24/2007 with BSO VAGINAL DELIVERY ONLY times 3 Subjective: Pt agreeable to PT evaluation. Social History/Disposition Lives with: Alone (06/21/24949) Assistance available: No (06/21/24949) Dwelling Type: Apartment (06/21/24949) Entry Steps: Elevator (06/21/24949) Inside Steps: None (06/21/24949) Bedroom Location: 1st floor (06/21/24949) Bath location: 1st floor full bath (06/21/24949) Prior Level of Function Reported by: Patient (06/21/24949) Ambulation: Ambulatory with device (06/21/24949) Ambulatory Device: Rollator (06/21/24949) Devices at home: Rolling walker;Rollator;Straight cane (06/21/24949) Observations Consciousness: Alert (06/21/24949) Orientation: Oriented times 4 (06/21/24949) Psychosocial: Patient can communicate basic needs;Patient can converse in a social setting (06/21/24949) Other Findings: Yes (06/21/24949) Findings: Proprioception;Coordination;Light touch sensation (06/21/24949) Light Touch Sensation Results: Intact;LLE;RLE (06/21/24949) Proprioception Results: Intact;LLE;RLE (06/21/24949) Coordination Results: Intact;LLE;RLE (06/21/24949) Sitting Posture: Forward head;Rounded shoulders (06/21/24949) Standing Posture: Forward head;Rounded shoulders (06/21/24949) Safety Awareness: Patient verbalizes insight of current deficits;Patient demonstrates carryover of insight during functional tasks;Patient can communicate basic needs (06/21/24949) Pain: Patient has complaints of pain. Pain located incision sites. 10/11 Staff Notified Range of Motion: Passive range of motion of the bilateral lower extremities is within functional limits. Active range of motion of the bilateral lower extremities is within functional limits. Strength: Strength of the bilateral lower extremities is grossly 4-/5 P.T. Bed Mobility Roll (Right): Supervision (log roll) (06/21/24949) Sidelying-Sit: Supervision (06/21/24949) Transfers Sit-Stand: Contact Guard (06/21/24949) Stand-Sit: Contact Guard (06/21/24949) Ambulation: Distance ambulated (feet): 5 Assistive Device: Rolling walker Assist: Contact Guard Noted Gait Deviations: Decreased step length;Shuffling (06/21/24949) Balance Sit (Static): Fair (06/21/24949) Sit (Dynamic): Fair (06/21/24949) Stand (Static): Fair (06/21/24949) Stand (Dynamic): Fair (06/21/24949) Patient and or Family Goal(s): to get well and to return home Patient Education Review of Precautions: Safety;Spine Precautions;Fall (role of PT in acute care setting) (06/21/24949) Safety Awareness: Patient verbalizes insight of current deficits;Patient demonstrates carryover of insight during functional tasks;Patient can communicate basic needs (06/21/24949) Preferred learning method: Combination (06/21/24949) Barriers to learning: Medical Status (06/21/24949) Method of Education: Verbalized to patient;Demonstrated to patient;Patient demonstrated task (06/21/24949) Topic of Education: Safety with mobility, Goals/plan of care, Use of assistive device, Fall prevention, and spine precautions Method of Education: Verbal discussion and explanation provided to patient: verbalized understanding and or agreement of this information and demonstrated the exercise and or task Demonstrated the above task to patient: verbalized understanding and or agreement of this information and demonstrated the exercise and or task Treatment Provided: Evaluation Moderate Complexity 12 minutes - 45326: Patient was cooperative and pleasant during treatment session. Moderate complexity evaluation performed and 1-2 personal factorsor comorbidities were identified that will impact plan of care, including lives alone at home. Patient presents with limitations in endurance, which will impact plan of care. These limitations will be addressed by the goals set for this patient. Alarm Status Patient positioned in: Chair (06/21/24949) With: Pressure pad alarm intact and functioning and call johnson in reach (06/21/24949) Following session patient seated OOB in chair with chair alarm activated and cord plugged into callbell system. Goals: Pt will be able to perform supine to/from sitting at edge of bed with modified independence and without assistance via log roll and maintaining spine precautions. Pt will be able to perform sit to/from stand transitions with with modified independence and without assistance while maintaining spine precautions Pt will have 4+/5 strength in R lower extremity and 4+/5 strength in L lower extremity. Pt will demonstrate good sitting balance and good standing balance. Pt will be able to ambulate at least 250 feet with modified independence and with least restrictiveassistive device Pt will demonstrate safety with all functional mobility. Time Frame: 10 visits Assessment: Pt is a 64 year old female presenting to [facility] [place] status post L4-L5 laminectomy, discectomy,spinal fusion, and dural tear. Pt agreeable to PT evaluation at beginning of session. Verbalized pain in lumbar spine and rated 7- 8/10. Nursing aware. Pt donning homero and ted at beginning and throughout duration of of session. Educated pt on role of PT in acute care setting and spine precautions prior to mobilization. Pt lives in a first floor apartment with 0 steps to enter. Her prior level offunction is modified independent with use of rollator. Pt participated in range of motion and strength assessment revealing weakness in bilateral lower extremities. Sensation, edema, and coordinationgrossly intact. Pt performed supine to sitting at edge of bed via log roll with supervision assistance. Pt performed sit to stand transfer with contact guard assistance. Pt ambulated 5 feet to chair with rolling walker and contact guard assistance demonstrating the following gait abnormalities decre ased step length and shuffling gait pattern. Pt was relieved in chair with alarms donned and with call johnson within reach. Pt will benefit from skilled PT intervention in order to improve functional endurance/strength. Please consider post-acute care services which may include home health, senior care, outpatient therapy or inpatient rehabilitation. The level of care will be determined in collaboration with patient, family/caregiver and care team members. Deficits requiring P.T. treatment needs: Safety;Mobility;Balance;Endurance;Lower extremity strength(06/21/24949) Equipment Needs: Equipment needs: No device (06/21/24949) Treatment Plan: Bed mobility training, Transfer training, Gait training, Strengthening exercises: bilateral lower extremities, Balance activities, and Educate on safety with functional mobility Anticipated Frequency (on eval): 3 to 5 days per week (04/20/25 0950) AM PAC Score with Stairs: 18 A portion of this AM-PAC assessment not scored based on functional assessment; rather clinical decision making utilized based on current findings and/or prior level of function. Please refer to future AM-PAC calculations of functional ability as they become available. documented in this encounter Nursing Notes * Manuelito Bryant RN - 06/25/2024 6:19 AM EDT Patient sat up and having dry heaves and complained of headache. Compazine given and not effective.BP manual 210/120. Made ortho service aware and waiting at bedside for provider Loan Meyers. Denies any vision changes or any other symptoms. * Rebeca Schroeder RN - 06/19/2024 6:16 PM EDT Dual Licensed Skin Assessment completed by Sondra Marinelli and Crytsal Hall. The patient is/has a N/A Skin Breakdown (includes non blanchable erythema): Yes - Surgical/Procedural changes only. * Norma Esquivel NA - 06/19/2024 5:54 PM EDT Post Anesthesia Care Unit Transport Note [facility] [address] [address] Dept. Martha Lawson Transported from [facility] to : [facility] Time: 1744 Care of patient transferred to: [facility] Transported via: Bed Belongings with Patient: YES Pulse : 68 Temp : 36.4 BP : 106/69 Respirations : 20 Pulse Ox : 99 O2 : room air SCDS: On but not activated/no machine * Yessi Gomez RN - 06/19/2024 4:48 PM EDT PERIOP TO IP HANDOFF COMMUNICATION NOTE [address] [address] Name: Martha Lawson AGE: [id number] year old Location[place] [facility] [place] Date: 06/19/2024 Attention to: Sondra Schroeder Report from: Yessi Gomez, ESPERANZA Patient arriving via: Bed Time of call: 4:48 PM Phone Ext: TT sent Reason for SBAR (Situation, Background, Assessment, Recommendation) handoff: OR Sending to: [facility] 659E Emotional/Personal Events & Special Needs: Patient is to be FLAT until Saturday per service. Prescriptions in chart: No Code Status: Full Code Safety Concerns: no safety concerns identified Allergies: Other allergy (see comments), Nsaids, Penicillins, and Sulfa antibiotics PMH: Past Medical History: Diagnosis Date Allergic rhinitis Asthma, allergic no significant exacerbations since bypass ; 2004 Backache 03/04/1990 Backache Depressive disorder, not elsewhere classified 03/04/1984 Depression Fibromyalgia Gastritis and gastroduodenitis 02/27/2007 mild chronic gastritis GERD (gastroesophageal reflux disease) HTN (hypertension) INFORMATION chronic rhinitis Migraine Obesity, BMI not known life long seen at the high risk obsity clinic [place] [facility] [place] Pancreatitis Spinal stenosis, lumbar Spondylolisthesis PSH: Past Surgical History: Procedure Laterality Date ARTHRODESIS, ANT INTERBODY, BELOW C-2 N/A 02/05/2020 ARTHRODESIS, ANT INTERBODY, BELOW C-2 performed by Luis Eduardo Ross MD at OR [facility] AUTOGRAFT, SPINE SURG, MORSELIZED N/A 02/05/2020 OBTAIN AUTOGRAFT FOR SPINE SURGERY MORSELIZED SEPARATE INCISION performed by Luis Eduardo Ross MD at [facility] BONE MARROW ASPIRATION BONE GRAFTING SPINE SURGERY ONLY N/A 02/05/2020 BONE MARROW ASPIRATION FOR SPINE BONE GRAFTING performed by Luis Eduardo Ross MD at OR [facility] DELIVERY x 1 COLONOSCOPY, DIAGNOSTIC (RECTUM) 01/15/2012 COLONOSCOPY FLEXIBLE PROXIMAL DIAGNOSTIC performed by Raman Patel MD at [facility] CYSTOSCOPY N/A 08/31/2022 CYSTOURETHROSCOPY performed by Chico Perry MD at OR [facility] EGD, FLEXIBLE, DIAGNOSTIC 03/28/2017 normal/ESOPHAGOGASTRODUODENOSCOPY (EGD), FLEXIBLE, TRANSORAL, DIAGNOSTIC performed by Raman Patel MD at ENDOSCOPY [facility] EGD, FLEXIBLE, DIAGNOSTIC 06/23/2021 z-line regular, Michelle-en-Y gastrojejunostomy w/ gastrojejunal anastomosis/biopsies from your duodenum returned normal / ESOPHAGOGASTRODUODENOSCOPY (EGD), FLEXIBLE, TRANSORAL, DIAGNOSTIC performed by Joana Adam MD at [facility]COPY [facility] EGD, FLEXIBLE, DIAGNOSTIC 02/07/2022 normal bx / ESOPHAGOGASTRODUODENOSCOPY (EGD), FLEXIBLE, TRANSORAL, DIAGNOSTIC performed by Joana Adam MD at [facility]COPY [facility] EGD, FLEXIBLE, W/BIOPSY 02/27/2007 mild chronic gastritis ENLARGEMENT OF BREAST W/IMPLANT 11/12/2012 MAMMOPLASTY AUGMENTATION WITH IMPLANT performed by Gab Campbell MD at [facility] EXCISION EXCES SKIN,PANNICULECTOMY,INFRAUMB 2005 GASTRIC BYPASS FOR OBESITY GASTRIC BYPASS FOR OBESITY INSERT BIOMECH DEVICE INTERVERTEBRAL DISC SPACE W/ARTHRODESIS N/A 02/05/2020 INSERTION INTERBODY BIOMECHANICAL DEVICE ANTERIOR W/INTERBODY ARTHRODESIS performed by Luis Eduardo Ross MD at [facility] LIGATE/CUT OVIDUCT(S) Tubal Ligation LUMBAR SPINE FUSION, POST INTERBODY 02/22/2012 ARTHRODESIS SPINE POSTERIOR INTERBODY WITH LAMINECTOMY LUMBAR performed by Joseph Giordano MD at [facility] LUMBAR SPINE FUSION, POST INTERBODY 03/17/2012 ARTHRODESIS SPINE POSTERIOR INTERBODY WITH LAMINECTOMY LUMBAR performed by Joseph Giordano MD at [facility] LUMBAR SPINE FUSION, POSTEROLATERAL 02/22/2012 ARTHRODESIS SPINE POSTERIOR LUMBAR performed by Joseph Giordano MD at [facility] MAMMOGRAM - BILATERAL 08/07/2004 Birad code 2 benign findings MAMMOGRAM SCREENING-BILATERAL 01/27/2003 birad code 2 MASTOPEXY 11/12/2012 MASTOPEXY performed by Gab Campbell MD at [facility] OTHER surgery L wrist REMOVE EXCESSIVE SKIN, OTHER AREA 11/12/2012 EXCISION EXCESSIVE SKIN AND SUBCUTANEOUS TISSUE OTHER performed by Gab Campbell MD at [facility] REMOVE EXCESSIVE SKIN, OTHER AREA N/A 03/23/2014 EXCISION EXCESSIVE SKIN AND SUBCUTANEOUS TISSUE OTHER performed by Gab Campbell MD at [place] [facility] [place]OVE EXCESSIVE SKIN/TISSUE, THIGH 11/12/2012 EXCISION EXCESSIVE SKIN AND SUBCUTANEOUS TISSUE THIGH performed by Gab Campbell MD at [place] [facility] [place] LUMBAR SPINE LAMINA, 1 SEG 02/22/2012 LAMINECTOMY FACETECTOMY AND FORAMINOTOMY POSTERIOR LUMBAR performed by Joseph Giordano MD at [facility] REMOVE SPINE FIXATION DEVICE, POST 08/14/2013 REMOVAL POSTERIOR SPINAL NONSEGMENTAL INSTRUMENTATION performed by Joseph Giordano MD at [place] [facility] [place] REPAIR BLADDER DEFECT N/A 08/31/2022 VAGINAL SLING PROCEDURE FOR STRESS INCONTINENCE performed by Chico Perry MD at [facility] SACROILIAC JOINT INJECT W/GUIDANCE 02/09/2014 INJECTION SACROILIAC JOINT performed by Mateo Christian DO at [facility] SACROILIAC JOINT INJECT W/GUIDANCE 02/23/2014 INJECTION SACROILIAC JOINT performed by Mateo Christian DO at [facility] SKIN TISSUE REARRANGEMENT 11/12/2012 SKIN TISSUE REARRANGEMENT performed by Gab Campbell MD at [facility] SKIN TISSUE REARRANGEMENT, ADD-ON 11/12/2012 SKIN TISSUE REARRANGEMENT, ADD-ON performed by Gab Campbell MD at [place] [facility] [place] SPINE FIX DEV, ANT, 3 SEG, INSERT N/A 02/05/2020 ANTERIOR INSTRUMENTATION 2 TO 3 VERTEBRAL SEGMENT performed by Luis Eduardo Ross MD at OR [facility] SUCTION REMOVE FAT TISSUE, LEGS 11/12/2012 SUCTION ASSISTED LIPECTOMY LOWER EXTREMITY performed by Gab Campbell MD at [facility] TOTAL ABD HYSTERECTOMY W/WO REMOVAL OF TUBE(S) 11/24/2007 with BSO VAGINAL DELIVERY ONLY times 3 Isolation: Isolation: Procedure: Transitional spondylolisthesis and foraminal stenosis L4-5 above a previous L5-S1 interbody fusion Type of Anesthesia: General endotracheal anesthesia Block: IV intake: 1000 mL 500ML albumin EBL: OR: 400 mL PACU: 0 mL Urine output: OR 0 mL PACU 650 mL IUBC (Chairez): Incision location: Mid back Dressing location: mid back Time of last skin assessment: 1600 Pressure injuries or areas of concern: back Lines: Urethral Catheter Regular catheter (Active) Site Assessment Clean;Skin intact 06/19/24 1510 Securement Method Securing device (Describe) 06/19/24 151 Catheter secured to leg? Yes 06/19/24 151 Catheter bag below bladder? Yes 06/19/24 151 Has IUBC been removed? (If yes, ensure the order is discontinued.) No, perioperative, or scheduled for return to OR within 48 hrs 06/19/24 151 IUBC Tubing Disconnected This Shift? No 06/19/24 151 Collection Container Standard drainage 06/19/241509 Urine Description Clear;Yellow 06/19/24 151 Number of days: 0 Supplemental Airway Natural;Oral pharyngeal airway;NRB (Active) Number of days: 0 Peripheral Line Lower;Right Arm 18 Gauge (Active) Status Fluids infusing 06/19/241544 Tubing Changed N/A 06/19/241544 Phlebitis Scale 0 06/19/241544 Infiltration Scale 0 06/19/241544 Site Description (Other) Without redness, swelling or drainage 06/19/241544 Site Intervention Flushed 06/19/241544 Dressing Assessment Transparent dressing;Dressing clean, dry, and intact 06/19/241544 Dressing Intervention None required 06/19/241544 Number of days: 0 Drain Hemovac Lower;Mid Back (Active) Number of days: 0 Vital Signs: BP: 112/76 (06/19/24 1635) Temp: 36 °C (96.8 °F) (06/19/24 154) Pulse: 71 (06/19/24 1635) Resp: 19 (06/19/24 163) SpO2: 100 % (06/19/24 163) O2 flow rate: 2 L/MIN (06/19/24 162) Time of last pain medication: 1700 Med: 10 mg oxycodone PO Time of last antibiotic: 1224 Med: ancef Time of last antiemetic: 1430 Med: zofran [employer]NAGER: no Drips: no Neurological: Speech/Cry: Clear (06/19/24 154) Level of Consciousness: Alert (06/19/24 154) RUE Motor Strength: 5-Active movement with full resistance (06/19/24 154) RLE Motor Strength: 5-Active movement with full resistance (06/19/24 154) LUE Motor Strength: 5-Active movement with full resistance (06/19/24 1545) LLE Motor Strength: 5-Active movement with full resistance (06/19/24 154) Right Pupil Size (mm): 3 (06/19/24 1545) Right Pupil Reaction: Reactive (06/19/24 1545) Left Pupil Size (mm): 3 (06/19/24 1545) Left Pupil Reaction: Reactive (06/19/24 1545) Coma Score: 15 (06/19/24 1545) Respiratory: Respiratory WNL: WNL- within normal limits (06/19/24 1510) Oxygen therapy/ Mechanical vent Supplemental O2 Delivery: Nasal Cannula (06/19/24 162) O2 flow rate: 2 L/MIN (06/19/24 162) Cardiac: Cardiovascular WNL: WNL - within normal limits (06/19/24 154) Rhythm: Regular (06/19/24 154) Extremities: +Sensation;Right;Left;Upper;Cold (06/19/24 154) Pulses Right: Dorsalis Pedis +;Radial +;Palpable (06/19/24 151) Pulses Left: Dorsalis Pedis +;Radial +;Palpable (06/19/24 151) GI: GI WNL: WNL - within normal limits (06/19/24 154) : WNL: X - Exceptions to WNL as documented below (06/19/24 154) Urine Description: Clear;Yellow (06/19/24 154) Urethral Catheter Regular catheter (Active) Site Assessment Clean;Skin intact 06/19/241509 Securement Method Securing device (Describe) (stat lock) 06/19/241509 Catheter secured to leg? Yes 06/19/241509 Catheter bag below bladder? Yes 06/19/241509 Has IUBC been removed? (If yes, ensure the order is discontinued.) No, perioperative, or scheduled for return to OR within 48 hrs 06/19/241509 IUBC Tubing Disconnected This Shift? No 06/19/24 151 Collection Container Standard drainage 06/19/241509 Urine Description Clear;Yellow 06/19/24 151 Number of days: 0 Due to Void: IUBC intact Integumentary:Integumentary WNL: X - Exceptions to WNL as documented below (06/19/241544) Skin Description: Dry;Warm (06/19/241544) Skin Variations: Other - Describe (surgical- see below) (06/19/241544) Family updated on transfer: yes- daughter called Additional Assessment Information: patient is to be flat until Saturday per orthopedics service. * Yessi Gomez RN - 06/19/2024 4:19 PM EDT Dual Licensed Skin Assessment completed by Yessi Bejarano RN and Sita Santiago RN. The patient is/has a N/A Skin Breakdown (includes non blanchable erythema): Yes - Surgical/Procedural changes only. * Anastasiya Duke RN - 06/17/2024 11:41 AM EDT Pre-operative chart review completed. Instructions provided based on current medication list in [facility]. Presurgery instructions sent to patient via [email or web address] message. NO ANESTHESIA EVAL REQUESTED PER CASE DOCUMENTATION. PREOP PATIENT INFORMATION AND EDUCATION: MEDICATION INSTRUCTIONS: The day of surgery/procedure, you may TAKE the following medications with a sip of water up to 2 hours prior to your arrival time: Ativan as needed Primidone Bupropion Trintellix Metoprolol Pantoprazole AVOID/ DO NOT TAKE any medications the morning of surgery/procedure that are not listed above. STOP taking the following medications the noted number of days prior to surgery/procedure unless otherwise specified by your surgeon: Please follow surgeon's instructions regarding use of Aspirin, Coumadin, Plavix, Eliquis, and any other blood thinner including NSAIDs (non-steroidal anti- inflammatory drugs, eg, Advil, Ibuprofen, Motrin, Aleve, Naproxen); if you have any questions regarding your anticoagulation therapy please contact your surgeon's clinic. Please verify any proposed stoppage of your anticoagulation therapy with the agent's prescribing provider. 10 days prior to surgery/procedure Stop all Herbal supplements, Green Tea, Turmeric, Melatonin, CBD, THC, etc. Stop all Vitamins (including Vitamin E) 24 hours prior to surgery/procedure DO NOT consume any alcohol. DO NOT use medical marijuana. DO NOT smoke or use tobacco products of any kind after midnight prior to surgery. *Using any of these products may increase your risks of procedural complications. IF IT IS LESS THAN RECOMMENDED STOPPAGE TIME PLEASE STOP AT TIME OF NOTIFICATION. FASTING RECOMMENDATIONS: To reduce risk, it is important for all elective surgery patients to follow the specific fasting guidelines listed below. If you have received more stringent guidelines, please follow the MOST RESTRICTIVE guidelines that you have been provided. DO NOT EAT after midnight on the night prior to your surgery date. You are allowed to drink clear liquids up to two hours prior to arrival time to the hospital or surgery center. Examples of clear liquids include water, clear fruit juice without pulp, clear carbonated beverages, clear tea, and black coffee. Any drinks given by your surgical service take as directed. Infant/pediatric patients who currently drink breast milk, formula, and non-human milk must not eat after midnight. These patients are allowed to drink only the liquids listed below up to two hours prior to arrival time to the hospital or surgery center: Ingested Material Minimum Fasting Time Clear liquid After midnight up to 2 hours prior to arrival time Breast milk Up to 4 hours prior to arrival time formula Up to 6 hours prior to arrival time Non-human milk Up to 6 hours prior to arrival time THE DAY BEFORE YOUR SURGERY: -Drink plenty of fluid the day before your surgery. Contact your surgeon's office if you develop any of the following within 2 weeks of surgery: A cold Infection Fever Shingles Chicken pox or exposure to chicken pox Open areas such as scrapes, cuts, peña or other skin conditions Rashes GENERAL INSTRUCTIONS FOR PREPARING FOR SURGERY: BATHING INSTRUCTIONS: Bathe the evening prior to and the morning of surgery/procedure. Cleanse your body using ONLY anti-bacterial soap (eg, Dial, Safeguard) or any specific soap/cleansers and instructions provided by your surgeon (eg, Chlorhexidine). -You should brush your teeth the morning of surgery. Do NOT apply any lotions, powders, sprays, creams, oils, make-up, or deodorants after bathing. No hairspray, or nail v[place] citizen on fingers or toes. Day of surgery/procedure do not use tampons. If you wear contacts wear your eyeglasses if available otherwise bring your contact supplies with you to remove them prior to your surgery/procedure. If you wear glasses or dentures, please bring cases in which you can store them during your surgery. Please remove all piercings and jewelry and leave them at home. Wear comfortable and loose clothing. -Please leave all valuables at home. -If you use a CPAP and are staying overnight, please bring your mask and tubing with you to the hospital. -If you use an assistive mobility device (walker, cane, etc), please label it with your name and bring to hospital. -An escort lifter driver is required if you are being discharged the same day of the surgery. You should have a responsible adult over the age of 18 [address] you home. This person should be present with youin the hospital at the time of discharge and for the first 24 hours after the surgery to support your needs. If you are taking a taxi home, you must have your responsible republican accompany you in the taxi ride home at the time of discharge. OR times subject to change. Please check [employer] messages the day/evening before your surgery forany updates. PRE-OP: You will be taken to the pre-op area where your vital signs (blood pressure, pulse and temperature)will be taken. Any preparations that need to be done will be done there. When it is time for your surgery, you will be taken to the operating room. PARENTS OF PEDIATRIC PATIENTS WILL BE ALLOWED TO STAY WITH THEIR CHILDREN UNTIL THEY ARE ESCORTED TO THE OPERATING ROOM OUTPATIENT SURGERY PATIENTS: After your surgery you will be taken to the Same Day Surgery Unit when you are awake and will go home from there. You will get instructions about your home care before you leave. Arrange to have someone drive you home from the hospital. You may not drive for 24 hours after anesthesia. You must havean adult stay with you at home for 24 hours after your operation. This is very important. If you are not able to comply with these guidelines, your Short Stay surgery cannot be done. ADMISSION PATIENTS: After your stay in the recovery area, you will be taken to your room. Your family may visit you in your room based on current visitation policy. If a next day discharge is expected, it is important to make arrangements for a lifter driver to take you home. Please be aware our visitation policies are subject to change Professionals, attendants, caregivers or family members are allowable visitors for patients with intellectual, developmental or cognitive disabilities, communication barriers or behavioral concerns. Because patients' and families' needs vary, they will be taken into account when applying visitation restrictions. [facility]: Contact # [phone] Directions to Surgical Suite in from the [place] Entrance The Surgical Waiting Room can be found in the Lobby of [facility]. Enter through Main Lobby Entrance and the Waiting Room is directly in front of you. Proceed to check in and give them your name. Directions to Surgical Suite from the East Entrance Enter the East entrance and follow the hallway to the J elevator. Take the J elevator up to Level 1. Continue down the long hallway to the main [facility] Lobby. The Surgical Waiting Room will be on your Right. Proceed to check in and give them your Name. Directions to Surgical Suite from the Parking Garage Enter the [facility] lobby and proceed down the rome to the left. At the end of the rome, turn right. Continue down the long hallway to the main [facility] Lobby. The Surgical Waiting Room will be on your Right. Proceed to check in and give them your Name. THANK YOU FOR CHOOSING [facility]! documented in this encounter OR Notes * OR Surgeon - Joseph Giordano MD - 06/19/2024 2:35 PM EDT OPERATIVE RECORD [place] [facility] [place] O[place] ROOM [facility] [address] [facility] [id number] Martha Lawson : 1960 Location: [facility] DATE: 06/19/2024 PREOPERATIVE DIAGNOSIS: Transitional spondylolisthesis and foraminal stenosis L4-5 above a previousL5-S1 interbody fusion POSTOPERATIVE DIAGNOSIS: Same SURGEON: Joseph Giordano MD ASSISTANTS: Elham Gutierrez PA-C, she assisted because a qualified resident was not available with else well as secondary to the complexity of the case. During the operative procedure she was necessary to maintain a clean dry operative field, assist in the exposure, decompression, fusion, instrumentation, and closure. ANESTHESIA: General OPERATION: Complete laminectomy L4-5, complete diskectomy L4-5, posterior lumbar interbody fusion L4-5, posterior instrumentation L4-5. The fusion was performed with a combination of local autogenousbone graft, Vivigen, and I Factor. The procedure should be coded with a 22 modifier. The patient had had 2 previous lower back operations. There was significant amount of scar tissue in the plane of dissection as well as the distal portion of the laminectomy. This made the laminectomy and decompression much more time consuming and difficult. FINDINGS: The patient had severe facet arthropathy consistent with the spondylolisthesis. The L4-5 disc was actually fairly healthy. There was mild to moderate foraminal stenosis at L4 bilaterally. ESTIMATED BLOOD LOSS: 400 mL DRAINS: Medium Hemovac FLUIDS: 1 L Crystalloid, 500 mL of albumin URINE OUTPUT: That measure SPECIMEN: None COMPLICATIONS: There was a 4-5 mm dural tear create it in the axilla of the right L4 nerve root. This occurred during retraction of the dural sac medially while performing the right-sided diskectomy. CONDITION: Stable INDICATIONS AND HISTORY: This patient had recurrent back and leg pain. Her symptoms were unresponsive to conservative therapy. DESCRIPTION OF OPERATION: The patient was anesthetized and placed prone on the Levy table. The spine was prepped and draped in usual sterile fashion. The old midline incision was opened and the posterior elements dissected subperiosteally out over the L3-4 and L4-5 facet joints. A 2nd time-out was performed and then with fluoroscopy in place pedicle screws were placed in L4 and L5. Screws wereplaced by getting access with a 5 mm bur, using a gearshift, tap, and ball-tip probe to make sure all 5 belcher were intact prior to placing the screws. At L5 I was actually able to find the pedicle screw tracts from her previous instrumentation that was removed earlier. The final position of the screws was confirmed fluoroscopically. The limit of the previous laminectomy was identified distally and scar tissue was dissected off this area with a series of curettes and elevators. I then used a series of Leksell rongeurs and Kerrison rongeurs to perform a complete midline laminectomy starting under the remaining lamina of L5 and working up through L4 making sure I got well proximal to the L4-5 disc. Complete medial and partial superior facetectomies were performed with a Kerrison rongeur and osteotomes. This was so I could getsafe access to the L4-5 disc working in the interval between the axilla of the L4 and over the shoulder of the L5 nerve root. Complete foraminotomies were performed with the 3 and 4 mm Kerrison rongeu r. A complete diskectomy at L4-5 was then performed with a series of instruments including Erasmo, curettes, and pituitary rongeurs. During medial retraction of the dural sac on the right side there was not tear created in the axilla of the right L4 nerve root. I was able to repair this with a [id number] 4-0 Nurolon stitch. Because of the diminished spinal fluid pressure it was difficult to say whether this repair was actually completely watertight. Once the nuclear material was removed from the disc the anterior portion of the disc was packed with the combination of local bone, Vivigen and I Factor. A single cage packed with the same material was placed. The decompression was deemed complete. Two rods were secured to the pedicle screws. The dural repair was reinforced with a combination of Surgicel, DuraGen, and fibrin glue. A transverse connector was applied. The wound was then closed in layers over a drain. The wound was sterilely dressed, the drain attached, and the patient was awakened and taken to the recovery room in stable condition. Joseph Giordano MD 06/19/2024 2:35 PM * Operative Report Brief - Suzette Alcala PA-C - 06/19/2024 2:24 PM EDT [facility] [address] [facility] [id number] OPERATIVE REPORT - BRIEF Name: Martha Lawson Date: 06/19/2024 Time: 2:25 PM Location: [place] [facility] [place] Service: Orthopedic Surgery Date of Operation: 06/19/2024 Pre-op Diagnosis: lumbar stenosis Post-op Diagnosis: same Operation: L4-5 lami/psf/plif Surgeon: Joseph Giordano MD Assistants: Elham Gutierrez PA-C Anesthesia: General endotracheal anesthesia Drains: Hemovac Estimated Blood Loss: 400 ml. IV Fluids: 1000 ml crystalloids, 500 ml albumin. Urine Output: N/A Specimens/Disposition: None Apparent Intraoperative Complications: Dural Tear repaired intra-op Patient Condition: stable Disposition: Post Anesthesia Care Unit Attestation: I understand that section 1842 (b)(7)(D) of the Social Security Act generally prohibits Medicare physician fee schedule payment for the services of [id number] in [facility] when qualified residents are available to furnish such services. I certify that the services for which payment is claimed were medically necessary, and that no qualified resident was available to perform the services. I further understand that these services are subject to post-payment review by the Medicare carrier. Dr. Giordano was present and scrubbed for the entire procedure Cosigned by Joseph Giordano MD at 06/19/2024 2:56 PM EDT documented in this encounter Miscellaneous Notes * Care Plan - Rebeca Schroeder RN - 06/25/2024 1:04 PM EDT Problem: Pain & Impaired Comfort Goal: Patient's pain & discomfort is manageable. Outcome: Adequate for Discharge Problem: Safety & Risk for Injury Goal: Patient will remain free from injury. Outcome: Adequate for Discharge Problem: Daily Care & Potential Self-Care Deficit Goal: Patient's daily care needs are met. Outcome: Adequate for Discharge Problem: Risk for Impaired Physical Mobility Goal: Patient will maintain optimal mobility level. Outcome: Adequate for Discharge Problem: Knowledge Deficit Goal: Patient & caregiver will demonstrate understanding. Outcome: Adequate for Discharge Problem: Discharge Barriers Goal: Patient's discharge needs are met. Outcome: Adequate for Discharge Problem: Actual & Potential for Impaired Skin Integrity Goal: Patient will maintain skin integrity. Outcome: Adequate for Discharge Goal: Patient will maintain adequate nutritional intake. Outcome: Adequate for Discharge Problem: Actual & Potential for Falls Goal: Patient will remain free of falls. Outcome: Adequate for Discharge Clinical Goal(s): Patient will remain free from falls throughout shift (06/25/24 0830) Possible barriers to meeting goal(s)/advancing plan of care: post op Stability of the patient: Moderately stable - low risk of patient condition declining or worsening Summary regarding today's goal(s): Met: patient will remain free from falls throughout shift Recommendations: continue with fall precautions * Ancillary Progress Note - Ale Thomson RN - 06/25/2024 12:00 PM EDT CARE MANAGEMENT - ADULT DISCHARGE NOTE [address] [address] Name: Martah Lawson Location: [address] Date: 06/25/2024 Time: 12:00 PM The following coordination of care and discharge plan has been coordinated with the care team, patient, family and/or caregiver according to the patients’ needs and preferences. Discharge Final Discharge Plan (Complete only at time of Discharge): Home with Services (06/25/24 1200) Home Medical Care - Admitted Since 06/19/2024 Service Provider Services Address Phone Fax Patient Preferred Last Updated [facility] [address] [place] [address], [address] [address] [phone] -- Ale Thomson RN 06/25/2024 1200 Narrative: Patient to discharge to home. Family to provide transportation. [facility] to provide a start of care tomorrow 06/26/2024. No additional needs or services are indicated at this time. * Ancillary Progress Note - Ale Thomson RN - 06/25/2024 11:58 AM EDT HOME CARE REFERRAL FORM CARE MANAGEMENT [address] [address] Referred By: Ale Thomson RN Admission Date: 06/19/2024 Discharge Date: Discharge Time: Start Date: 24-48 hours Agency Referred To: [facility]. PATIENT INFORMATION: Name: Martha Lawson Address: [address] [place] [address] : 1960 Phone: There is no home phone number on file. SSN: [id number] County: [place] Emergency Contacts: Extended Emergency Contact Information Primary Emergency Contact: delaney lara Mobile Relation: Adult Child Secondary Emergency Contact: Dayton Rhodes Mobile Relation: Adult Child Preferred language: Thai Test Hole Driller needed? No MEDICAL INFORMATION: Principal Diagnosis: Spinal stenosis, lumbar Diet: As per discharge instructions. Allergies: Other allergy (see comments), Nsaids, Penicillins, and Sulfa antibiotics Isolation Type: Activity Restrictions: As ordered Isolation For: None HOME CARE ORDERS: (Discipline and Frequency): Prison Assessment Disease Management and Teaching Medication Management and Teaching Lab work as indicated on discharge instructions PT/OT Evaluation and Treat Home Safety Evaluation Medications Dose, Frequency, & Route: As ordered Ordering Physician and Contact Information: Joseph Giordano MD Comments: n/a PCP: [place]: [place] [address] [phone] D/C Physician: Joseph Giordano MD Insurance: See attached facesheet. * Progress Notes - Post-Op Global - Hamilton Posadas CRNP - 06/25/2024 11:28 AM EDT Ortho quick note. Reviewed DC with patient. She has been progressing with therapy, walking >300 feet independentlyin the hallway. Patient would like to discharge to home with PT. In anticipation of DC operative dressing removed from lumbar spine. Incision well approximated with steri strips intact. Incision covered with telfa and tegaderm. Patient can take dressing off and leaving incision open to air starting tomorrow, as it is one week out from surgery. * Progress Notes - Post-Op Global - Elham Gutierrez PA-C - 06/25/2024 10:18 AM EDT PROGRESS NOTE - Orthopaedics [address] [address] Name: Martha Lawson [address]: [address] Date: 06/25/2024 Time: 10:18 AM ROUNDS WERE COMPLETED WITH: Dr. Giordano SUBJECTIVE: no complaints, some nausea today Pain is controlled. OBJECTIVE: Most Recent Vital Signs: BP: 130 mmHg/70 mmHg (06/25/24 0700) Pulse: 100 (06/25/24 0643) Resp: 18 (06/25/24599) Temp: 36.89 C (06/25/24599) Temp Summary: Temp Min: 36.2 °C (97.2 °F) Max: 36.9 °C (98.4 °F) SpO2: 97 % (06/25/24599) O2 flow rate: 0 L/MIN (06/24/240) Supplemental O2 Delivery: Room Air, None (06/25/24599) Adequate urine outs. Dressing/incision intact. Sensation intact to light touch bilateral upper and lower extremities. Palpable dorsalis pedis pulse bilateral lower extremity, good refill. Neurovascularly intact to gross testing with no deficits noted. ASSESSMENT: Post-op Day: 6 s/p L4-5 lami, psf, plif PLAN: mobilize Pain control. P.T./O.T. * Ancillary Progress Note - Isabel Wu COTA/Osmar - 06/25/2024 9:05 AM EDT PROGRESS NOTE - Occupational Therapy [address] [address] Name: Martha Lawson Location: [facility]/A Date: 06/25/2024 Time: 11:31 AM Martha Lawson is a 64 year old female. Patient Status: Inpatient Insurance: Payor: [facility] MADHAV Plan: [facility] GOLD SECURE 1 AND 3 MC-ND Product Type: *No Product type* Payor: [employer] PA Plan: HeadCount [facility] Product Type: HMO Payor: [facility] Plan: [facility] PSYCH CARVEOUT Product Type: *No Product type* Patient Identified By: Name, ID Band and Date Diagnosis: spinal stenosis lumbar (06/25/24904) Status of treatment: Treatment completed (06/25/24904) Orders: OT evaluation and treatment (06/25/24904) Weight Bearing Status: Weight bearing as tolerated (06/23/241237) Precautions: Spine precautions (06/25/24904) Total Treatment Time: 25 (06/25/24904) Pain: Patient has complaints of pain. Pain located in back. Observations Consciousness: Alert (06/25/24904) Orientation: Oriented times 4 (06/25/24904) Psychosocial: Patient can communicate basic needs (06/25/24904) Sitting posture: Forward head;Rounded shoulders (06/25/24904) Standing posture: Forward head;Rounded shoulders (06/25/24904) Safety awareness: The Patient can communicate basic needs.;Needs cueing supervision. (06/25/24904) Other Findings Light touch sensation: LUE;RUE;Intact (06/23/24 123) Coordination: LUE;RUE;Intact (06/23/241237) Current Functional Status: Activities of Daily Living: Self Care Grooming: Independent (06/25/24904) Dressing Upper Body: Independent (for gown and robe) (06/25/24904) Lower Body: Modified Independent (for underwear and socks using adapttve equipment) (06/25/24904) Bathing Upper Body: Modified Independent (06/25/24904) Lower Body: Modified Independent (06/25/24904) Functional Ambulation Assistive Device: Rolling walker (06/25/24904) Distance in feet:: 250 (and 25 x2) (06/25/24904) Level of Assistance: Modified Independent (06/25/24904) Bed Mobility Sidelying - Sit: Modified Independent (06/25/24904) OT Transfers Sit-Stand: Modified Independent (06/25/24904) Stand-Sit: Modified Independent (06/25/24904) Tub: Modified Independent (06/25/24904) Car Transfer: Modified Independent (06/25/24904) Balance Sit (Static): Good (06/25/24904) Sit (Dynamic): Good (06/25/24904) Stand (Static): Good (06/25/24904) Stand (Dynamic): Good (06/25/24904) Patient Education Education Topic: Role of OT;Plan of care goals (06/25/24904) Review of Precautions: Safety;Spine Precautions;Fall (06/25/24904) Method of Education: Verbalized to patient (06/24/24849) Education Provided to: Patient (06/25/24904) Response to Education: Receptive and agreeable to education (06/25/24904) Barriers to learning: None (06/25/24904) Preferred learning method: Combination (06/25/24904) Alarm Status Patient positioned in: Bed (06/25/24904) With: Call johnson in reach (06/25/24904) Treatment Provided: Self Senior Living Management Trainin minutes Therapeutic Activity: 10 minutes Deficits requiring O.T. treatment needs: ADL/self- care;Balance;Endurance;Functional mobility;IADL;Safety;Upper extremity strength;Weakness (06/23/241237) Assessment: Patient in chair upon arrival. Patient performed functional transfers, including tub and car Mod I, and functional mobility using rolling walker Mod I. Completed ADL's at the above levelsseated and standing utilizing adaptive equipment. Performed bed mobility sit>sidelying Mod I. Tolerated session well. Patient has met all therapy goals, discharging from services. Please consider home with post-acute care services which may include home health or outpatient therapy. The level ofcare will be determined in collaboration with the patient, family/caregiver and care team members. Plan: Discontinue Occupational Therapy services Anticipated Frequency (on eval): 3 to 5 days per week (06/23/24 1238) AM-PAC Help From Another Person Eating Meals: None (06/25/24904) Help From Another Person Taking Care of Personal Grooming: None (06/25/24904) Help From Another Person To Put On/Take Off Upper Body Clothing: None (06/25/24904) Help From Another Person To Put On/Take Off Lower Body Clothing: None (06/25/24904) Help From Another Person Toileting: None (06/25/24904) Help From Another Person Bathing: A little (06/25/24904) OT AM-PAC Score: 23 (06/25/24904) OT AM-PAC t-Scale Score: 51.12 (06/25/24904) HLM (Highest Level of Mobility) Goal: Level 7 walk 25 feet or more (06/25/24829) A portion of this AM-PAC assessment not scored based on functional assessment ; rather clinical decision making utilized based on current findings and/or prior level of function. Please refer to future AM-PAC calculations of functional ability as they become available. * Progress Notes - Non-Billable - Jethro Gann MD - 06/25/2024 8:50 AM EDT Chart review only Martha Lawson is a 64 year old female with PMH significant for hypertension, asthma, allergies, anxiety, depression, essential tremor, history of gastric bypass surgery, history of prior lumbar spine surgery who is now s/p complete laminectomy L4-5, complete diskectomy L4-5, posterior lumbar interbody fusion L4-5, posterior instrumentation L4-5 (Dr. Giordano 06/19/24). Hospital Medicine consultedfor elevated blood pressure this morning. Per chart review, this morning noted to have nausea with dry heaves and headaches, given compazine. Manual BP 210/120 just before 6AM, increased from prior 24 hrs 100-150/50-80. HR increased to 100 from previously 60-80. BP 200/110 on repeat x2 then BP decreased to 130/70 at 7AM without any additional antihypertensives being given Assessment/Plan Elevated BP likely in the setting of nausea/dry heaves/headache. Most recently normalized without additional pharmacologic intervention. During this hospitalization Pt's BP's have been somewhat labile, earlier in the postoperative period in the 80-120s/50-100s, more recently 100-150/50-70. Pt is on a very low dose of lisinopril ROUTE JUMPER. RECOMMENDATIONS: Transient hypertensive urgency - improved without pharmacologic intervention - Lisinopril increased to 2.5 mg daily from 1.25 (I ordered) - Cont ROUTE JUMPER metop tartrate 12.5 BID (ROUTE JUMPER metop succinate XL 25 daily) Discussed with orthopedic team who stated consult no longer needed. If BP becomes an issue again I am happy to see them as a full consult. Thank you for allowing Hospital Medicine to participate in the care of this patient. Please page [facility] Medicine Consults Hospitalists on [employer] with any questions. * Care Plan - Crystal Calrin RN - 06/24/2024 10:27 PM EDT Problem: Pain & Impaired Comfort Goal: Patient's pain & discomfort is manageable. Outcome: Progressing Problem: Safety & Risk for Injury Goal: Patient will remain free from injury. Outcome: Progressing Problem: Daily Care & Potential Self-Care Deficit Goal: Patient's daily care needs are met. Outcome: Progressing Problem: Risk for Impaired Physical Mobility Goal: Patient will maintain optimal mobility level. Outcome: Progressing Problem: Knowledge Deficit Goal: Patient & caregiver will demonstrate understanding. Outcome: Progressing Problem: Discharge Barriers Goal: Patient's discharge needs are met. Outcome: Progressing Problem: Actual & Potential for Impaired Skin Integrity Goal: Patient will maintain skin integrity. Outcome: Progressing Goal: Patient will maintain adequate nutritional intake. Outcome: Progressing Problem: Actual & Potential for Falls Goal: Patient will remain free of falls. Outcome: Progressing Clinical Goal(s): Patient will remain free from falls during today shif (06/24/241939) Possible barriers to meeting goal(s)/advancing plan of care: pain, walker use, surgery Stability of the patient: Moderately stable - low risk of patient condition declining or worsening Summary regarding today's goal(s): Met: Patient was free from falls during todays shift Recommendations: Continue fall precautions * Care Plan - Rebeca Schroeder RN - 06/24/2024 4:22 PM EDT Problem: Pain & Impaired Comfort Goal: Patient's pain & discomfort is manageable. Outcome: Progressing Problem: Safety & Risk for Injury Goal: Patient will remain free from injury. Outcome: Progressing Problem: Daily Care & Potential Self-Care Deficit Goal: Patient's daily care needs are met. Outcome: Progressing Problem: Risk for Impaired Physical Mobility Goal: Patient will maintain optimal mobility level. Outcome: Progressing Problem: Knowledge Deficit Goal: Patient & caregiver will demonstrate understanding. Outcome: Progressing Problem: Discharge Barriers Goal: Patient's discharge needs are met. Outcome: Progressing Problem: Actual & Potential for Impaired Skin Integrity Goal: Patient will maintain skin integrity. Outcome: Progressing Goal: Patient will maintain adequate nutritional intake. Outcome: Progressing Problem: Actual & Potential for Falls Goal: Patient will remain free of falls. Outcome: Progressing Clinical Goal(s): Patient will remain free from falls throughout shift (06/24/24 0811) Possible barriers to meeting goal(s)/advancing plan of care: post op, altered mobility Stability of the patient: Moderately stable - low risk of patient condition declining or worsening Summary regarding today's goal(s): Met: patient remained free from falls Recommendations: continue with fall precautions * Ancillary Progress Note - Warner Stein PTA - 06/24/2024 3:20 PM EDT PROGRESS NOTE - Physical Therapy [facility] [address] Name: Martha Lawson Location: [facility] H655/A Date: 06/24/2024 Time: 3:20 PM Martha Lawson is a/an 64 year old female. Patient Status: Inpatient Insurance: Payor: [facility] Bettery Plan: [facility] GOLD SECURE 1 AND 3 MC-ND Product Type: *No Product type* Payor: [employer] PA Plan: HeadCount [facility] Product Type: O Payor: [facility] Plan: [facility] PSYCH CARVEOUT Product Type: *No Product type* Patient Seen: at bedside, nursing cleared patient for therapy Patient Identified By: Name, ID Band and Date Diagnosis: spinal stenosis and s/p laminectomy, disckectomy, and fusion and dural tear (06/24/241519) Status of treatment: Treatment completed (06/24/241519) Orders: PT evaluation and treatment (06/24/241519) Precautions: Spine precautions (06/24/241519) Total Treatment Time--free text: 10 (06/24/241519) Subjective: Patient agreeable to therapy Pain: Patient has complaints of pain. Pain located in low back. P.T. Bed Mobility Sidelying-Sit: Modified Independent (06/24/241519) Transfers Sit-Stand: Modified Independent (06/24/241519) Stand-Sit: Modified Independent (06/24/241519) Ambulation: Distance ambulated (feet): 320 Assistive Device: Rolling walker Assist: Modified Independent Noted Gait Deviations: Decreased step length;Shuffling (06/21/24 0950) Balance Sit (Static): Good (06/24/24 152) Sit (Dynamic): Good (06/24/24 1520) Stand (Static): Good (06/24/24 1520) Stand (Dynamic): Good (06/24/24 152) Patient and or Family Goal(s): to get well Topic of Education: Safety with mobility, Goals/plan of care, Use of assistive device, and Fall prevention Method of Education: Verbal discussion and explanation provided to patient: demonstrated the exercise and or task Treatment Provided: Therapeutic Activities 10 minutes: bed mobility training transfer training toilet transfer training Gait training Alarm Status Patient positioned in: Bed (06/24/241519) With: Call johnson in reach (06/24/241519) Patient Education Review of Precautions: Spine Precautions (06/24/241519) Safety Awareness: Patient verbalizes insight of current deficits;Patient demonstrates carryover of insight during functional tasks (04/23/25 1520) Preferred learning method: Combination (06/24/241519) Barriers to learning: None (06/24/241519) Method of Education: Verbalized to patient;Patient demonstrated task (06/24/241519) Assessment: Patient found sidelying in bed awake and alert. Transitioned from sidelying to sitting with Mod I assistance. Completed multiple sit to stand and stand to sit transfers from edge of bed and toilet with Mod I assistance. Ambulated 320 feet from bathroom into hallway and back to edge of bed with Mod I assistance. Patient left seated at edge of bed, call johnson within reach(primary nurse aware). Communicated with PT eli Ye to discharge from therapy due to meeting all goals. No further acute care therapy needs. Deficits requiring P.T. treatment needs: None (06/24/241519) Plan: Discontinue therapy services. AM PAC Score with Stairs: 24. A portion of this AM-PAC assessment not scored based on functional assessment; rather clinical decision making utilized based on current findings and/or prior level of function. Please refer to future AM- PAC calculations of functional ability as they become available. * Ancillary Progress Note - Anastasiya Duncan RN - 06/24/2024 1:39 PM EDT CARE MANAGEMENT - ADULT TRANSITION NOTE [facility] [place] [address] Name: Martha Lawson Location: [facility] H655/A Date: 06/24/2024 Time: 1:39 PM Risk Stratification Readmission Risk Score: 13.74 (06/24/24 1201) AM-PAC Score With Stairs : 18 (06/24/24 0811) Caregiver Information Emergency Contacts None on File Other Contacts Name Relation Home Work Mobile delaney lara Adult Child [phone] [place] Adult Child [phone] Transition of Care Checklist Narrative: CM has been following Martha's hospital course. Patient discussed in IDT rounds. They are medically stable for discharge at this time. Discharge plan evolving - CM will continue to follow for discharge needs. Patient denied IPR by Insurance, approved for SNF LOC. Left VM for admissions @[facility], awaiting return call. Anticipated Transportation at Discharge: [facility] van vs friend Patient/Family Expectations: SNF? Transition Planning Care Management will continue to monitor and assist with discharge planning needs * Ancillary Progress Note - Isabel Wu COTA/Osmar - 06/24/2024 8:50 AM EDT PROGRESS NOTE - Occupational Therapy [address] [address] Name: Martha Lawson Location: [facility] H655/A Date: 06/24/2024 Time: 12:06 PM Martha Lawson is a 64 year old female. Patient Status: Inpatient Insurance: Payor: [employer] Plan: [employer] [facility] 1 AND 3 MC-ND Product Type: *No Product type* Payor: [employer]Count PA Plan: HeadCount [facility] Product Type: HMO Payor: [facility] Plan: [facility] PSYCH CARVEOUT Product Type: *No Product type* Patient Identified By: Name, ID Band and Date Diagnosis: spinal stenosis lumbar (06/24/24 0850) Status of treatment: Treatment completed (06/24/24 0850) Orders: OT evaluation and treatment (06/24/24 0850) Weight Bearing Status: Weight bearing as tolerated (06/23/24 1238) Precautions: Spine precautions (06/24/24 0850) Total Treatment Time: 23 (06/24/24 0850) Pain: Patient has complaints of pain. Pain located in back. Observations Consciousness: Alert (06/24/24 0850) Orientation: Oriented times 4 (06/24/24 0850) Psychosocial: Patient can communicate basic needs (06/24/24 0850) Sitting posture: Forward head;Rounded shoulders (06/23/24 1238) Standing posture: Forward head;Rounded shoulders (06/24/24 0850) Safety awareness: The Patient can communicate basic needs.;Needs cueing supervision. (06/24/24 0850) Other Findings Light touch sensation: LUE;RUE;Intact (06/23/24 1238) Coordination: LUE;RUE;Intact (06/23/24 1238) Current Functional Status: Activities of Daily Living: Self Care Grooming: Supervision (06/24/24 0850) Dressing Lower Body: Supervision (for socks using adaptive equipment) (06/24/24 0850) Functional Ambulation Assistive Device: Rolling walker (06/24/24 0850) Distance in feet:: 150 (06/24/24 0850) Level of Assistance: Supervision (Please comment) (06/24/24 0850) Bed Mobility Sit - Sidelying: Modified Independent (06/24/24849) OT Transfers Sit-Stand: Supervision (06/24/24849) Stand-Sit: Supervision (06/24/24849) Bed-Chair: Supervision (06/24/24849) Balance Sit (Static): Good (06/24/2450) Sit (Dynamic): Good (06/24/2450) Stand (Static): Fair + (06/24/24849) Stand (Dynamic): Fair + (06/24/24 0850) Patient Education Education Topic: Role of OT;Plan of care goals (06/24/24849) Review of Precautions: Safety;Spine Precautions;Fall (06/24/24849) Method of Education: Verbalized to patient (06/24/24 0850) Education Provided to: Patient (06/24/2450) Response to Education: Receptive and agreeable to education (06/24/24 0850) Barriers to learning: None (06/24/24849) Preferred learning method: Combination (06/24/24 0850) Alarm Status Patient positioned in: Bed (06/24/24 0850) With: Bed alarm intact and functioning and call johnson in reach (06/24/24849) Treatment Provided: Self Senior Living Management Trainin minutes Therapeutic Activity: 10 minutes Deficits requiring O.T. treatment needs: ADL/self- care;Balance;Endurance;Functional mobility;IADL;Safety;Upper extremity strength;Weakness (06/23/24 1238) Assessment: Patient in chair upon arrival. Patient performed functional transfers and functional mobility using rolling walker supervision. Completed ADL's at the above levels utilizing adaptive equipment. Performed bed mobility sit>sidelying Mod I. Tolerated session well. Please consider post-acute care services which may include home health, senior care, outpatient therapy or inpatient rehabilitation. The level of care will be determined in collaboration with patient, family/caregiver and care team members. Plan: Continue with of care. Anticipated Frequency (on eval): 3 to 5 days per week (06/23/24 1238) AM-PAC Help From Another Person Eating Meals: None (06/24/24949) Help From Another Person Taking Care of Personal Grooming: None (06/24/24949) Help From Another Person To Put On/Take Off Upper Body Clothing: None (06/24/24949) Help From Another Person To Put On/Take Off Lower Body Clothing: A little (06/24/24949) Help From Another Person Toileting: A little (06/24/24949) Help From Another Person Bathing: A little (06/24/24949) OT AM-PAC Score: 21 (06/24/24949) OT AM-PAC t-Scale Score: 44.27 (06/24/24949) HLM (Highest Level of Mobility) Goal: Level 6 walk 10 steps or more (06/24/24 0811) A portion of this AM-PAC assessment not scored based on functional assessment , rather clinical decision making utilized based on current findings and/or prior level of function. Please refer to future AM-PAC calculations of functional ability as they become available. * Progress Notes - Post-Op Global - Elham Gutierrez PA-C - 06/24/2024 8:34 AM EDT PROGRESS NOTE - Orthopaedics [facility] [place] [place] [address] Name: Martha Lawson Location: [facility] H655/A Date: 06/24/2024 Time: 8:34 AM ROUNDS WERE COMPLETED WITH: Dr. Giordano SUBJECTIVE: no complaints Pain is controlled. OBJECTIVE: Most Recent Vital Signs: BP: 129 mmHg/66 mmHg (06/24/24 0641) Pulse: 75 (06/24/24640) Resp: 16 (06/24/24640) Temp: 36.5 C (06/24/24640) Temp Summary: Temp Min: 36.5 °C (97.7 °F) Max: 36.5 °C (97.7 °F) SpO2: 97 % (06/24/24640) O2 flow rate: 0 L/MIN (06/22/241929) Supplemental O2 Delivery: Room Air, None (06/24/24640) Adequate urine outs. Dressing/incision intact. Sensation intact to light touch bilateral upper and lower extremities. Palpable dorsalis pedis pulse bilateral lower extremity, good refill. Neurovascularly intact to gross testing with no deficits noted. ASSESSMENT: Post-op Day: 5 s/p L4-5 lami, psf, plif PLAN: mobilize Pain control. P.T./O.T. Awaiting rehab * Ancillary Progress Note - Candy Dotson OSA - 06/23/2024 2:45 PM EDT Member: Martha Lawson : 1960 [facility] Program Attendant decision: deny acute ip rehab with recommendation for SNF level of care at a [facility] participating provider. SNF auth [id number] (Note-this is not a reference number for peer to peer). If the Physician in the hospital does not agree with this decision, he/she can call by 16:00 of the following business day and tell the associate he/she would like to speak with our Band Saw Operator [employer] Cut[employer] concerning a denial of acute inpatient rehab admission. Thank you. [facility] Medical Management-Post Acute Team * Ancillary Progress Note - Ale Thomson RN - 06/23/2024 12:59 PM EDT CARE MANAGEMENT - ADULT TRANSITION NOTE [facility] [place] [place] [address] Name: Martha Lawson Location: [facility] H655/A Date: 06/23/2024 Time: 12:59 PM Risk Stratification Readmission Risk Score: 15.12 (06/23/24 1200) AM-PAC Score With Stairs : 18 (06/23/24 1239) Caregiver Information Emergency Contacts None on File Other Contacts Name Relation Home Work Mobile delaney lara Adult Child [phone] [place] Adult Child [phone] Transition of Care Checklist Narrative: CM submitted for auth for [facility] and is awaiting for decision. Anticipated Transportation at Discharge: S Patient/Family Expectations: [facility] Transition Planning Additional Considerations: n/a Care Management will continue to monitor and assist with discharge planning needs * Ancillary Progress Note - Dave Ford OT - 06/23/2024 12:42 PM EDT PROGRESS NOTE - Occupational Therapy [address] [address] Name: Martha Lawson Location: [facility] H655/A Date: 06/23/2024 Time: 12:42 PM Martha Lawson is a 64 year old female. Patient Status: Inpatient Insurance: Payor: [facility] Bettery Plan: [facility] Bettery SECURE 1 AND 3 MC-ND Product Type: *No Product type* Payor: [employer] PA Plan: [employer]Count [facility] Product Type: HMO Payor: [facility] Plan: [facility] PSYCH CARVEOUT Product Type: *No Product type* Patient Seen: at bedside, nursing cleared patient for therapy Patient Identified By: Name, ID Band and Date Diagnosis: s/p L4-5 lami, psf, plif (06/23/24 1238) Status of treatment: Treatment completed (06/23/24 1238) Orders: OT evaluation and treatment (06/23/24 1238) Weight Bearing Status: Weight bearing as tolerated (06/23/24 1238) Precautions: Spine precautions (06/23/24 123) Total Treatment Time: 10 (06/23/241237) Subjective: Patient agreeable to session, wants to get moving Pain: No complaints of pain Observations Consciousness: Alert (06/23/241237) Orientation: Oriented times 4 (06/23/241237) Psychosocial: Patient can communicate basic needs;Patient can converse in a social setting (06/23/241237) Sitting posture: Forward head;Rounded shoulders (06/23/241237) Standing posture: Forward head;Rounded shoulders (06/23/241237) Safety awareness: The Patient verbalizes insight of current deficits.;The Patient demonstrates carryover of insight during functional tasks. (06/23/241237) Other Findings Light touch sensation: LUE;RUE;Intact (06/23/241237) Coordination: LUE;RUE;Intact (06/23/241237) Current Functional Status: Activities of Daily Living: Dressing Upper Body: Supervision (to don gown) (06/23/241237) Lower Body: Supervision (to don/doff socks using AE) (06/23/241237) Functional Ambulation Assistive Device: Rolling walker (06/23/241237) Distance in feet:: 50 (06/23/241237) Level of Assistance: Supervision (Please comment) (06/23/241237) Bed Mobility Roll (Right): Supervision (06/23/241237) Roll (Left): Supervision (06/23/241237) Sit - Sidelying: Supervision (06/23/241237) Sidelying - Sit: Supervision (06/23/241237) OT Transfers Sit-Stand: Supervision (06/23/241237) Stand-Sit: Supervision (06/23/241237) Bed-Chair: Contact Guard (06/21/24 0950) Balance Sit (Static): Fair + (06/23/241237) Sit (Dynamic): Fair + (06/23/241237) Stand (Static): Fair + (06/23/241237) Stand (Dynamic): Fair + (06/23/241237) Patient Education Education Topic: Role of OT;Plan of care goals (06/23/241237) Review of Precautions: Safety;Fall;Spine Precautions (06/23/241237) Method of Education: Verbalized to patient (06/23/241237) Education Provided to: Patient (06/23/241237) Response to Education: Receptive and agreeable to education (06/23/241237) Barriers to learning: None (06/23/241237) Preferred learning method: Combination (06/23/241237) Alarm Status Patient positioned in: (walking with PT) (06/23/241237) With: Staff member (06/23/241237) Treatment Provided: Self Senior Living Management Trainin minutes Deficits requiring O.T. treatment needs: ADL/self- care;Balance;Endurance;Functional mobility;IADL;Safety;Upper extremity strength;Weakness (06/23/241237) Assessment: Patient cooperative with treatment session this date. On exam, patient was able to complete bed mobility unassisted. She was provided with dressing equipment for LB dressing and was able to use plane tender/sock aide to manage socks with supervision. Patient was able to ambulate in hallway with close supervision using walker. She would benefit from ongoing services to improve function. Please consider post-acute care services which may include home health, senior care, outpatient therapy or inpatient rehabilitation. The level of care will be determined in collaboration with patient, family/caregiver and care team members. Plan: Continue plan of care Anticipated Frequency (on eval): 3 to 5 days per week (06/23/241237) AM-PAC Help From Another Person Eating Meals: None (06/23/241237) Help From Another Person Taking Care of Personal Grooming: None (06/23/241237) Help From Another Person To Put On/Take Off Upper Body Clothing: A little (06/23/241237) Help From Another Person To Put On/Take Off Lower Body Clothing: A little (06/23/241237) Help From Another Person Toileting: A little (06/23/241237) Help From Another Person Bathing: A little (06/23/241237) OT AM-PAC Score: 20 (06/23/241237) OT AM-PAC t-Scale Score: 42.03 (06/23/241237) JH HLM (Highest Level of Mobility) Goal: Level 6 walk 10 steps or more (06/23/24 2530) * Ancillary Progress Note - Warner Stein PTA - 06/23/2024 12:39 PM EDT PROGRESS NOTE - Physical Therapy [facility] [place] [address] Name: Martha Lawson Location: [facility] [place] [facility] Date: 06/23/2024 Time: 12:39 PM Martha Lawson is a/an 64 year old female. Patient Status: Inpatient Insurance: Payor: [employer] Plan: [employer] SECURE 1 AND 3 MC-ND Product Type: *No Product type* Payor: [employer] PA Plan: HeadCount [facility] Product Type: O Payor: [facility] Plan: [employer] [facility] [facility] PSYCH CARVEOUT Product Type: *No Product type* Patient Seen: at bedside, nursing cleared patient for therapy Patient Identified By: Name, ID Band and Date Diagnosis: spinal stenosis and s/p laminectomy, disckectomy, and fusion and dural tear (06/23/24 123) Status of treatment: Treatment completed (06/23/24 123) Orders: PT evaluation and treatment (06/23/24 123) Precautions: Spine precautions (06/23/241238) Total Treatment Time--free text: 8 (06/23/241238) Subjective: Patient agreeable to therapy Pain: Patient has complaints of pain. Pain located in low back. P.T. Bed Mobility Roll (Right): Supervision (06/23/24 123) Sidelying-Sit: Supervision (06/23/241238) Transfers Sit-Stand: Supervision (06/23/241238) Stand-Sit: Supervision (06/23/241238) Ambulation: Distance ambulated (feet): 140 Assistive Device: Rolling walker Assist: Supervision Balance Sit (Static): Fair + (06/23/24 123) Sit (Dynamic): Fair + (06/23/24 1238) Stand (Static): Fair + (06/23/241238) Stand (Dynamic): Fair + (06/23/241238) Patient and or Family Goal(s): to get well Topic of Education: Safety with mobility, Goals/plan of care, Use of assistive device, and Fall prevention Method of Education: Verbal discussion and explanation provided to patient: demonstrated the exercise and or task Treatment Provided: Therapeutic Activities 8 minutes: bed mobility training transfer training Gait training Alarm Status Patient positioned in: Bed (06/23/241238) With: Bed alarm intact and functioning and call johnson in reach (06/23/241238) Patient Education Review of Precautions: Safety;Spine Precautions;Fall (06/23/241238) Safety Awareness: Patient verbalizes insight of current deficits;Patient demonstrates carryover of insight during functional tasks;Needs cueing supervision (06/23/241238) Preferred learning method: Combination (06/23/241238) Barriers to learning: Medical Status (06/23/241238) Method of Education: Verbalized to patient;Patient demonstrated task (06/23/241238) Assessment: Patient found supine in bed awake and alert. Transitioned from sidelying to sitting with supervision assistance. Ambulated into hallway and back to room with supervision assistance using a rolling walker. Patient left seated at edge of bed with alarm activated and call johnson within reach(primary nurse aware). Patient required verbal cues for correct hand placement during transfers. Please consider post-acute care services which may include home health, senior care, outpatient therapy or inpatient rehabilitation. The level of care will be determined in collaboration with patient, family/caregiver and care team members. Deficits requiring P.T. treatment needs: Safety;Mobility;Balance;Endurance;Lower extremity strength(06/23/241238) Plan: Continue with current treatment plan established on evaluation. AM PAC Score with Stairs: 18. A portion of this AM-PAC assessment not scored based on functional assessment; rather clinical decision making utilized based on current findings and/or prior level of function. Please refer to future AM- PAC calculations of functional ability as they become available. * Progress Notes - Post-Op Global - Elham Gutierrez PA-C - 06/23/2024 8:40 AM EDT PROGRESS NOTE - Orthopaedics [facility] [place] [address] Name: Martha Lawson Location: [facility] [place] [facility] Date: 06/23/2024 Time: 8:40 AM ROUNDS WERE COMPLETED WITH: Dr. Giordano SUBJECTIVE: has not had a BM Pain is controlled. OBJECTIVE: Most Recent Vital Signs: BP: 139 mmHg/75 mmHg (06/23/24544) Pulse: 87 (06/23/24544) Resp: 16 (06/22/242241) Temp: 37.61 C (06/23/24544) Temp Summary: Temp Min: 36.4 °C (97.5 °F) Max: 37.6 °C (99.7 °F) SpO2: 99 % (06/23/24544) O2 flow rate: 0 L/MIN (06/22/241929) Supplemental O2 Delivery: Room Air, None (06/23/24544) Adequate urine outs. Dressing/incision intact. Sensation intact to light touch bilateral upper and lower extremities. Palpable dorsalis pedis pulse bilateral lower extremity, good refill. Neurovascularly intact to gross testing with no deficits noted. ASSESSMENT: Post-op Day: 4 s/p L4-5 lami, psf, plif PLAN: mobilzie Pain control. P.T./O.T. Looking into rehab * Diagnostic Clarification - Suzette Alcala PA-C - 06/23/2024 7:22 AM EDT The patient has been diagnosed with acute blood loss anemia. * Care Plan - Sylvia Snell RN - 06/23/2024 6:23 AM EDT Problem: Pain & Impaired Comfort Goal: Patient's pain & discomfort is manageable. Outcome: Progressing Problem: Safety & Risk for Injury Goal: Patient will remain free from injury. Outcome: Progressing Problem: Daily Care & Potential Self-Care Deficit Goal: Patient's daily care needs are met. Outcome: Progressing Problem: Risk for Impaired Physical Mobility Goal: Patient will maintain optimal mobility level. Outcome: Progressing Problem: Knowledge Deficit Goal: Patient & caregiver will demonstrate understanding. Outcome: Progressing Problem: Discharge Barriers Goal: Patient's discharge needs are met. Outcome: Progressing Problem: Actual & Potential for Impaired Skin Integrity Goal: Patient will maintain skin integrity. Outcome: Progressing Goal: Patient will maintain adequate nutritional intake. Outcome: Progressing Problem: Actual & Potential for Falls Goal: Patient will remain free of falls. Outcome: Progressing Clinical Goal(s): Patient will remain free of falls during shift (06/22/242299) Possible barriers to meeting goal(s)/advancing plan of care: recent surgery and pain control Stability of the patient: Moderately stable - low risk of patient condition declining or worsening Summary regarding today's goal(s): Met: Patient was free of falls during shift Recommendations: Fall precautions and assessing patients pain during hourly rounding * Progress Notes - Post-Op Global - Elham Gutierrez PA-C - 06/22/2024 10:01 AM EDT PROGRESS NOTE - Orthopaedics [facility] [place] [address] Name: Martha Lawson Location: [facility] [place] [facility] Date: 06/22/2024 Time: 10:01 AM ROUNDS WERE COMPLETED WITH: Dr. Giordano SUBJECTIVE: no complaints, no headache3\\ Pain is controlled. OBJECTIVE: Most Recent Vital Signs: BP: 163 mmHg/75 mmHg (06/22/24826) Pulse: 71 (06/22/24826) Resp: 18 (06/22/24599) Temp: 36.72 C (06/22/24599) Temp Summary: Temp Min: 36.7 °C (98.1 °F) Max: 37.7 °C (99.8 °F) SpO2: 100 % (04/21/25 0600) O2 flow rate: 0 L/MIN (06/21/24 2210) Supplemental O2 Delivery: Room Air, None (06/22/24 0600) Adequate urine outs. Dressing/incision intact. Sensation intact to light touch bilateral upper and lower extremities. Palpable dorsalis pedis pulse bilateral lower extremity, good refill. Neurovascularly intact to gross testing with no deficits noted. ASSESSMENT: Post-op Day: 3 s/p L4-5 lami, psf, plif Dural repair PLAN: mobilize Pain control. Continue dressing placed during OR procedure. Check x-rays. P.T./O.T. * Ancillary Progress Note - Ale Thomson RN - 06/22/2024 9:01 AM EDT CARE MANAGEMENT - ADULT TRANSITION NOTE [facility] [place] [address] Name: Martha Lawson Location: [facility] [place] [facility] Date: 06/22/2024 Time: 9:01 AM Risk Stratification Readmission Risk Score: 12.46 (06/22/24 0801) AM-PAC Score With Stairs : 18 (06/22/24 0755) Caregiver Information Emergency Contacts None on File Other Contacts Name Relation Home Work Mobile delaney lara Adult Child [phone] [place] Adult Child [phone] Transition of Care Checklist Narrative: CM has been following Martha's hospital course. Patient discussed in IDT rounds. They are not medically stable for discharge at this time. Patient is s/p s/p L4-5 lami/psf/plif on 06/19. Patient received 1U PRBC's. Plan to mobilize today. Discharge plan evolving - CM will continue to follow for discharge needs. CM spoke with patient regarding Rehab. Per patient's request CM sent referral to [facility]. 1340 Patient was accepted at [facility]. CM submitted for auth. Anticipated Transportation at Discharge: tbd Patient/Family Expectations: tbd Transition Planning Additional Considerations: n/a Care Management will continue to monitor and assist with discharge planning needs * Care Plan - Yakelin Metzger RN - 06/22/2024 4:14 AM EDT Clinical Goal(s): Patient will be free from falls the whole shift. (06/21/241999) Possible barriers to meeting goal(s)/advancing plan of care: Disease Process Stability of the patient: Moderately stable - low risk of patient condition declining or worsening Summary regarding today's goal(s): Met: Patient is free from falls the whole shift. Recommendations: Maintain on safety precautions. Do hourly rounds and always put the bed alarm on. * Care Plan - Rebeca Schroeder RN - 06/21/2024 3:22 PM EDT Problem: Pain & Impaired Comfort Goal: Patient's pain & discomfort is manageable. Outcome: Progressing Problem: Safety & Risk for Injury Goal: Patient will remain free from injury. Outcome: Progressing Problem: Daily Care & Potential Self-Care Deficit Goal: Patient's daily care needs are met. Outcome: Progressing Problem: Risk for Impaired Physical Mobility Goal: Patient will maintain optimal mobility level. Outcome: Progressing Problem: Knowledge Deficit Goal: Patient & caregiver will demonstrate understanding. Outcome: Progressing2 Problem: Discharge Barriers Goal: Patient's discharge needs are met. Outcome: Progressing Problem: Actual & Potential for Impaired Skin Integrity Goal: Patient will maintain skin integrity. Outcome: Progressing Goal: Patient will maintain adequate nutritional intake. Outcome: Progressing Problem: Actual & Potential for Falls Goal: Patient will remain free of falls. Outcome: Progressing Clinical Goal(s): Patient will remain free from falls throughout shift (06/21/24744) Possible barriers to meeting goal(s)/advancing plan of care: post op Stability of the patient: Moderately stable - low risk of patient condition declining or worsening Summary regarding today's goal(s): Met: patient remain free from falls Recommendations: continue with fall precautions * Progress Notes - Post-Op Global - Joseph Rg MD - 06/21/2024 7:44 AM EDT PROGRESS NOTE - Orthopaedics [facility] [place] [address] Name: Martha Lawson Location: [facility] [place] [facility] Date: 06/21/2024 Time: 7:44 AM SUBJECTIVE: POD2, patient is doing well on examination today. She is very eager to get out of bed and mobilize as she believes that this will help her back pain. She did well yesterday with head of bed to 30, no headaches. Plan for mobilization today. Transfused 1 unit yesterday, patient did well with this. OBJECTIVE: Most Recent Vital Signs: BP: 103 mmHg/64 mmHg (06/21/24624) Pulse: 79 (06/21/24624) Resp: 18 (06/21/24624) Temp: 36.39 C (06/21/24624) Temp Summary: Temp Min: 36.4 °C (97.5 °F) Max: 37.2 °C (99 °F) SpO2: 97 % (06/21/24624) O2 flow rate: 0 L/MIN (06/20/24 0600) Supplemental O2 Delivery: Room Air, None (06/21/24624) Adequate urine outs. Dressing/incision intact. Ankle plantar flexion 5/5. Ankle dorsiflexion 5/5. Sensation intact to light touch bilateral upper and lower extremities. Palpable dorsalis pedis pulse bilateral lower extremity, good refill. Labs: Hgb 8.4 this AM ASSESSMENT: Post-op Day: #2 s/p L4-5 lami/psf/plif PLAN: Plan to mobilize today, okay for head of bed as comfortable for patient, call orthopedic call team if patient having headaches Pain control. Continue Chairez until mobile - blood conservation consult placed Continue antibiotic. Continue dressing placed during OR procedure - HOMERO Cosigned by Joseph Giordano MD at 06/22/2024 6:14 AM EDT * Care Plan - Yakelin Metzger RN - 06/21/2024 4:40 AM EDT Clinical Goal(s): Patient will be free from falls the whole shift. (06/20/241999) Possible barriers to meeting goal(s)/advancing plan of care: Disease Process Stability of the patient: Moderately stable - low risk of patient condition declining or worsening Summary regarding today's goal(s): Met: Patient is free from falls the whole shift. Recommendations: Maintain on safety precautions. Do hourly rounds and always put the bed alarm on. * Care Plan - Rebeca Schroeder RN - 06/20/2024 3:37 PM EDT Problem: Pain & Impaired Comfort Goal: Patient's pain & discomfort is manageable. Outcome: Progressing Problem: Safety & Risk for Injury Goal: Patient will remain free from injury. Outcome: Progressing Problem: Daily Care & Potential Self-Care Deficit Goal: Patient's daily care needs are met. Outcome: Progressing Problem: Risk for Impaired Physical Mobility Goal: Patient will maintain optimal mobility level. Outcome: Progressing Problem: Knowledge Deficit Goal: Patient & caregiver will demonstrate understanding. Outcome: Progressing Problem: Discharge Barriers Goal: Patient's discharge needs are met. Outcome: Progressing Problem: Actual & Potential for Impaired Skin Integrity Goal: Patient will maintain skin integrity. Outcome: Progressing Goal: Patient will maintain adequate nutritional intake. Outcome: Progressing Problem: Actual & Potential for Falls Goal: Patient will remain free of falls. Outcome: Progressing Clinical Goal(s): Patient will remain free from falls throughout shift (06/20/24920) Possible barriers to meeting goal(s)/advancing plan of care: post op, bed rest, pain Stability of the patient: Moderately stable - low risk of patient condition declining or worsening Summary regarding today's goal(s): Met: patient remained free from falls throughout shift Recommendations: continue with fall precautions * Progress Notes - Post-Op Global - Joseph Rg MD - 06/20/2024 8:32 AM EDT PROGRESS NOTE - Orthopaedics [facility] [place] [address] Name: Martha Lawson Location: [facility] [place] [facility] Date: 06/20/2024 Time: 8:32 AM SUBJECTIVE: POD1 patient doing well on exam, NAEON aside from mild hypotension which has been asymptomatic, Pain well controlled. Plan to continue flat bedrest until noon then OK for HOB 30. OBJECTIVE: Most Recent Vital Signs: BP: 85 mmHg/50 mmHg (06/20/24599) Pulse: 73 (06/20/24599) Resp: 17 (06/20/24599) Temp: 36.72 C (06/20/24599) Temp Summary: Temp Min: 35.9 °C (96.6 °F) Max: 36.9 °C (98.4 °F) SpO2: 99 % (06/20/24599) O2 flow rate: 0 L/MIN (06/20/24599) Supplemental O2 Delivery: Room Air, None (06/20/24599) Adequate urine outs. Drain removed 06/20/2024 Dressing/incision intact. Ankle plantar flexion 5/5. Ankle dorsiflexion 5/5. Sensation intact to light touch bilateral upper and lower extremities. Palpable dorsalis pedis pulse bilateral lower extremity, good refill. ASSESSMENT: Post-op Day: #1 s/p L4-5 lami/psf/plif Labs: Hgb 6.7 this AM PLAN: HOB Flat until noon on 06/20/2024 Pain control. Continue Chairez until mobile Hemovac removed Plan to transfuse 1 unit blood given Hgb 6.7 - blood conservation consult placed Continue antibiotic. Continue dressing placed during OR procedure - HOMERO Cosigned by Joseph Giordano MD at 06/22/2024 6:14 AM EDT * Care Plan - Jose Manuel Perez RN - 06/19/2024 11:23 PM EDT Problem: Safety & Risk for Injury Goal: Patient will remain free from injury. Outcome: Progressing Problem: Actual & Potential for Falls Goal: Patient will remain free of falls. Outcome: Progressing Clinical Goal(s): pt will remain free from falls till the end of the shift (06/19/24 1900) Possible barriers to meeting goal(s)/advancing plan of care: weakness after recent procedure, pain management Stability of the patient: Moderately stable - low risk of patient condition declining or worsening Summary regarding today's goal(s): Met: pt remained free from falls till the end of the shift Recommendations: pt will continue implementing falls precautions * Progress Notes - Post-Op Ken - Suzette Alcala PA-C - 06/19/2024 3:24 PM EDT PROGRESS NOTE - Orthopaedics [facility] [place] [address] Name: Martha Lawson Location: [place] [facility] [place] Date: 06/19/2024 Time: 3:24 PM POST OP CHECK SUBJECTIVE: Patient seen at bedside in PACU Patient waking from anesthesia. Complaining of back pain OBJECTIVE: Most Recent Vital Signs: BP: 98 mmHg/65 mmHg (06/19/24 1519) Pulse: 79 (06/19/24 1519) Resp: 14 (06/19/24 151) Temp: 35.89 C (06/19/24 1509) Temp Summary: Temp Min: 35.9 °C (96.6 °F) Max: 36.9 °C (98.4 °F) SpO2: 100 % (06/19/24 1519) O2 flow rate: Supplemental O2 Delivery: Room Air, None (06/19/24 1022) Adequate urine outs. Drain in place. Dressing/incision intact. Ankle plantar flexion 5/5. Ankle dorsiflexion 5/5. Sensation intact to light touch bilateral upper and lower extremities. Palpable dorsalis pedis pulse bilateral lower extremity, good refill. ASSESSMENT: Post-op Day: #0 s/p L4-5 lami/psf/plif PLAN: HOB Flat until Saturday Pain control. Continue Chairez until mobile Continue drain - Hemovac Continue antibiotic. Continue dressing placed during OR procedure - HOMERO Cosigned by Joseph Giordano MD at 06/22/2024 6:14 AM EDT documented in this encounter Plan of Treatment Upcoming Encounters Date Type Department Care Team (Late st Contact Info) Description 07/03/2024 1:30 PM EDT Telemedicine Psychology, [address] [phone] Roly Miller LCSW [address] [place] [address] 07/14/2024 2:00 PM EDT Office Visit Orthopaedics Spine Surgery, [place] [address] [place] [phone] Elham Gutierrez PA-C [address] [place], [place] [phone] 07/15/2024 2:00 PM EDT Telemedicine Psychiatry, [address] [phone] Brooke Deluca CRNP [address] [place] [address] 07/23/2024 1:00 PM EDT Telemedicine Nutrition Services [place] [address] [place] [address] Jasvir Johnson, RDN [address] [place] [address] 10/07/2024 2:40 PM EDT Telemedicine Endocrinology [address] [place] [phone] Daniel Franco MD [address] [place] [address] 10/15/2024 3:30 PM EDT Office Visit Neurology [facility] [place] [address] [facility] [place] [phone] Mariya Harding PA-C [address] [place] [address] 10/21/2024 12:10 PM EDT Office [facility] [place] [facility] [address] [place] [address] Sheryl Parisi DO [address] [facility] [place] [address] 02/03/2026 2:20 PM EST [facility] [place] [facility] [address] [place] [address] Yessi Morton PA-C [address] [place] [address] [place] [address] Health Maintenance Due Date Last Done Comments Fecal Occult Blood Test 2006 Sigmoidoscopy 2006 Mammogram 08/09/2017 08/09/2016, 09/2015, 08/05/2014, Additional history exists Pneumococcal Vaccine: 50+ Years (3 of 3 - PCV20 or PCV21) 07/09/2021 07/09/2016, 08/21/2013 Colonoscopy 01/14/2022 01/15/2012, 01/15/2012 COVID-19 Vaccine (3 - 2023- season) 2023 12/08/2020, 11/17/2020 Albumin/Creatinine Ratio 03/21/2024 024, 02/03/2019, 09/05/2017, Additional history exists CKD PHOS USE SMARTSET 34151 10/17/202410/02, 03/16/2022, 02/09/2021, Additional history exists GFR 12/22/2024 06/22/2024, 06/03, 06/20/2024, Additional history exists Cologuard 04/04/2025 04/04/2022, 03/05, 03/27/2022 Colorectal Cancer Screening 04/04/2025 Depression Monitoring 05/20/2025 05/20/2024 , 01/02/2024, 12/26/2023 CKD HGB USE SMARTSET 19674 06/22/202506/22, 06/21/2024, 06/20/2024, Additional history exists Diabetes Screening 06/23/2027 06/22/2024, 0 06/21/2024, 06/20/2024, Additional history exists Lipid Panel 09/12/2028 09/13/2023, 10/02, 02/03/2019, Additional history exists DTap/Tdap Vaccines (3 - Td or Tdap) 02/18/2033 02/18/2023, 02/06/2010, 01/11/2005, Additional history exists Zoster Vaccines Completed 06/17/2018, 02/02, 07/09/2016 Influenza Vaccine (FLU shot) Completed , 03/20/2023, 01/31/2022, Additional history exists HPV (Gardasil) Vaccine Aged Out No lo nger eligible based on patient's age to complete this topic Hepatitis B Vaccine Aged Out No longe r eligible based on patient's age to complete this topic MENINGOCOCCAL (MENACTRA/MENVEO) Aged Out No longer eligible based on patient's age to complete this topic Meningitis B Vaccine (Bexsero/Trumemba) Aged Out No longer eligible based on patient's age to complete this topic documented as of this encounter Medical Devices Implanted Type Area Radio Host Device Identifier Shelf Expiration Date Model / Serial / Lot Graft Infuse Bone Sm [id number] - [id number] Implanted:Qt y: 1 on 02/22/2012 [place] [facility] [place]: Spine Lumbar [employer] : NEUROLOGIC PAIN 08/01/2014 [id number] / / [id number] Screw 6x45 Poly Si [id number] - [id number] Implanted:Qt y: 2 on 02/22/2012 [place] [facility] [place]: Spine Lumbar JNJ : [employer] [id number] / / Screw 7x35 Poly Si [id number] - [id number] Implanted:Qt y: 2 on 02/22/2012 [place] [facility] [place]: Spine Lumbar JNJ : [employer] [id number] / / Asif 5.5x55 Ti Prbnt [id number] - [id number] Implanted:Qt y: 2 on 02/22/2012 [place] [facility] [place]: Spine Lumbar JNJ : DEPUY SPINE [id number] / / Screw Set Sng Inner [id number] - [id number] Implanted:Qt y: 4 on 02/22/2012 at [place] [facility] [place]A: Spine Lumbar JNJ : DEPUY SPINE [id number] / / Cage 28x8 Leopard [id number] - [id number] Implanted:Qt y: 1 on 02/22/2012 at [place] [facility] [place]: Spine Lumbar JNJ : [employer] [id number] / / Implant Brst Mod Cls Pro 360cc - [id number] Implanted:Qt y: 1 on 11/12/2012 at [place] [facility] [place] Right: Breast MENTOR KRISSY 09/11/2017 350-7360 / [id number] / [id number] Implant Brst Mod Cls Pro 360cc - [id number] Implanted:Qt y: 1 on 11/12/2012 at [place] [facility] [place] Left: Breast [employer] KRISSY 08/12/2017 350-7360 / [id number] / [id number] 4.0 X 14 Variable Self Starting Screw Implanted:Qt y: 4 on 02/05/2020 by Luis Eduardo Ross MD at OR [facility] N/A: Spine Cervical KWADWO [id number] / / 1 Level 20mm Irving View Plate Implanted:Qt y: 1 on 02/05/2020 by Luis Eduardo Ross MD at OR [facility] N/A: Spine Cervical KWADWO [id number] / / [id number] Alcutian Implanted:Qt y: 1 on 02/05/2020 by Luis Eduardo Ross MD at OR [facility] N/A: Spine Cervical KWADWO [id number] / / Description:alctuian cage 2.5cc Vitoss Bimodal Foam Pack Implanted:Qt y: 1 on 02/05/2020 by Luis Eduardo Ross MD at OR [facility] N/A: Spine Cervical KWADWO [id number] 11/29/2020 [id number] / [id number] / [id number] Sling Desara One - [id number] Implanted:Qt y: 1 on 08/31/2022 by Chico Perry MD at OR [facility] N/A: Vagina [employer] 08/10/2023 [id number] / / [id number] Bone Mtrx Vivigen Formble 10cc - [id number] - [id number] Implanted:Qt y: 1 on 06/19/2024 by Joseph Giordano MD [place] [facility] [place]: Spine Lumbar [employer] 04/29/2025 [id number] / [id number] / [id number] Implant Graft Bone Ifact 2.5cc - [id number] Implanted:Qt y: 1 on 06/19/2024 by Joseph Giordano MD at [place] [facility] [place] Spine Lumbar [employer] [id number] 04/03/2026 700-025 / / [id number] Eit/ Plif 13mm 12 Degree 22/ Implanted:Qt y: 1 on 06/19/2024 by Joseph Giordano MD at [place] [facility] [place]: Spine Lumbar 08/31/2025 [id number] / / [id number] Duragen Plus 1x3 Dp 1013 Min5 - [id number] - [id number] Implanted:Qt y: 1 on 06/19/2024 by Joseph Giordano MD at [place] [facility] [place]A: Spine Lumbar [employer] KRISSY [id number] 12/01/2026 [id number] / [id number] / [id number] Screw 6x45 Poly Si [id number] - [id number] Implanted:Qt y: 2 on 06/19/2024 by Joseph Giordano MD at [place] [facility] [place]: Spine Lumbar JNJ : [employer] [id number] / / Screw 7x45 Poly Si [id number] - [id number] Implanted:Qt y: 2 on 06/19/2024 by Joseph Giordano MD at [place] [facility] [place]: Spine Lumbar JNJ : [employer] [id number] / / Pre Lordosed Asif W Line 45mm - [id number] Implanted:Qt y: 2 on 06/19/2024 by Joseph Giordano MD [place] [facility] [place]: Spine Lumbar JNJ : DEPUY SPINE [id number] / / Screw Set Sng Inner [id number] - [id number] Implanted:Qt y: 4 on 06/19/2024 by Joseph Giordano MD [place] [facility] [place]: Spine Lumbar JNJ : [employer] [id number] / / Expedium Ti Sfx 5.5 Lat A6 - [id number] Implanted:Qt y: 1 on 06/19/2024 by Joseph Giordano MD [place] [facility] [place]: Spine Lumbar JNJ : [employer] [id number] / / documented as of this encounter Procedures Procedure Name Priority Date/Time Associated Diagnosis Comments XR L SPINE AP AND LATERAL Routine 06/22/2024 12:47 PM EDT BASIC METABOLIC PANEL Routine 06/22/2024 6:02 AM EDT CBC Routine 06/22/2024 6:02 AM EDT BASIC METABOLIC PANEL Routine 06/21/2024 5:48 AM EDT CBC Routine 06/21/2024 5:48 AM EDT TRANSFUSE PACKED RED BLOOD CELLS Routine 06/20/2024 11:30 AM EDT HC COMPATIBILITY ELECTRONIC CROSSMATCH Routine 06/20/2024 9:25 AM EDT BASIC METABOLIC PANEL Routine 06/20/2024 6:15 AM EDT CBC Routine 06/20/2024 6:15 AM EDT HC ECG TRACING ONLY STAT 06/20/2024 3 :47 AM EDT Chest pain XR INTRA-OP C-ARM CASE Routine 2:33 PM EDT GLUCOSE METER, POINT OF CARE BEKAH 06/19/2024 2:01 PM EDT REMOVE SPINE FIXATION DEVICE, POST 06/19/2024 11:20 AM EDT Spinal stenosis of lumbar region with neurogenic claudication AUTOGRAFT, SPINE SURGERY, LOCAL 06/19/2024 11:20 AM EDT Spinal stenosis of lumbar region with neurogenic claudication Insert Biomech Device Intervertebral Disc Space W/Arthrodesis 06/19/2024 11:20 AM EDT Spinal stenosis of lumbar region with neurogenic claudication SPINE FIXATION, POSTERIOR, (FLOOD) 06/19/2024 11:20 AM EDT Spinal stenosis of lumbar region with neurogenic claudication Laminectomy, Facetectomy, or Foraminotomy During Arthrodesis, Lumbar; Single Vertebral Segment 06/19/2024 11:20 AM EDT Spinal stenosis of lumbar region with neurogenic claudication Spinal Fusion, Lumbar, Combined 06/19/2024 11:20 AM EDT Spinal stenosis of lumbar region with neurogenic claudication TYPE AND SCREEN STAT 06/19/2024 11:00 AM EDT GLUCOSE METER, POINT OF CARE Routine 06/19/2024 10:56 AM EDT documented in this encounter Results * XR L SPINE 2-3 VIEWS (06/22/2024 12:47 PM EDT) Anatomical Region Laterality Modality Vertebra, Lspine Computed Radiog misti 06/22/2024 1:49 PM EDT Impressions 06/22/2024 1:47 PM EDT IMPRESSION Postoperative appearance of the lumbar spine without evidence of complication. Narrative 06/22/2024 1:47 PM EDT EXAM XR L SPINE 2-3 VIEWS-06/22/2024 12:47 pm HISTORY l4-5 LAMI, PSF, PLIF TECHNIQUE AP and lateral radiographs of the lumbar spine are acquired. COMPARISON CT L SPINE WO CONTRAST, ACC: [id number], dated 2024-03-30 14:49:36 FINDINGS Five non rib-bearing lumbar vertebra are identified. The normal lumbar lordosis is maintained. Discectomy and posterior fixation hardware at L4-L5 intact. Osseous fusion of L5-S1 unchanged. No malalignment. Severe T12 compression deformity unchanged. No significant degenerative disc changes. Procedure Note David Butler, - 06/22/2024 EXAM XR L SPINE 2-3 VIEWS-06/22/2024 12:47 pm HISTORY l4-5 LAMI, PSF, PLIF TECHNIQUE AP and lateral radiographs of the lumbar spine are acquired. COMPARISON CT L SPINE WO CONTRAST, ACC: [id number], dated 2024-03-30 14:49:36 FINDINGS Five non rib-bearing lumbar vertebra are identified. The normal lumbar lordosis is maintained. Discectomy and posterior fixation hardware at L4-L5 intact. Osseous fusion of L5-S1 unchanged. No malalignment. Severe T12 compression deformity unchanged. No significant degenerative disc changes. IMPRESSION IMPRESSION Postoperative appearance of the lumbar spine without evidence ofcomplication. us Elham Gutierrez PA-C RADIOLOGY ([facility]) Erin quiñones Result * (ABNORMAL) BASIC METABOLIC PANEL (06/22/2024 6:02 AM EDT) BUN 6 6 - 20 mg/dL 06/22/2024 6:46 AM EDT [facility] CREATININE 0.8 0.5 - 1.0 mg/dL 06/22/2024 6:46 AM EDT [facility] EGFR 82 >=60 mL/min 06/22/2024 6:46 AM EDT [facility] Comment:eGFR is calculated b ased on the CKD-EPI 2020 equation. SODIUM 139 135 - 146 mmol/L 06/22/2024 6:46 AM EDT LAB[facility] POTASSIUM 4.8 3.5 - 5.1 mmol/L 06/22/2024 6:46 AM EDT [facility] CHLORIDE 109(H) 98 - 107 mmol/L 06/22/2024 6:46 AM EDT LAB[facility] CO2 20(L) 22 - 32 mmol/L 06/22/2024 6:46 AM EDT LAB[facility] ANION GAP 10 7 - 15 mmol/L 06/22/2024 6:46 AM EDT [facility] GLUCOSE 79 70 - 120 mg/dL 06/22/2024 6:46 AM EDT LAB[facility] CALCIUM 7.8(L) 8.4 - 10.2 mg/dL 06/22/2024 6:46 AM EDT [facility] Blood Venous blood specimen / Unknown Venipuncture / Unknown 06/22/2024 6:02 AM EDT 06/22/2024 6:06 AM EDT Suzette Alcala PA-C LAB BLOOD ORDERABLES Final Result [facility] [address] [place] [address] * (ABNORMAL) CBC (06/22/2024 6:02 AM EDT) WBC 6.63 4.00 - 10.80 K/uL 06/22/2024 6:20 AM EDT LAB[facility] RBC 2.77 3.85 - 5.15 M/uL 06/22/2024 6:20 AM EDT LAB[facility] HGB 8.6(L) 12.0 - 15.3 g/dL 06/22/2024 6:20 AM EDT LAB[facility] HCT 27.0(L) 36.0 - 45.2 % 06/22/2024 6:20 AM EDT LAB[facility] MCV 97.5 81.5 - 97.5 fL 06/22/2024 6:20 AM EDT LABORATORY [facility] [place] MCH 31.0 27.0 - 34.0 pg 06/22/2024 6:20 AM EDT LABORATORY C MCHC 31.9 32.0 - 36.0 g/dL 06/22/2024 6:20 AM EDT LABORATORY C RDW 14.3 11.5 - 15.5 % 06/22/2024 6:20 AM EDT [facility] PLT 141 140 - 400 K/uL 06/22/2024 6:20 AM EDT LABORATORY C MPV 9.3 6.6 - 11.1 fL 06/22/2024 6:20 AM EDT LAB[facility] NRBCs 0 <=0 /100 WBCs 06/22/2024 6:20 AM EDT LABORATORY [facility] [place] Blood Venous blood specimen / Unknown Venipuncture / Unknown 06/22/2024 6:02 AM EDT 06/22/2024 6:06 AM EDT Suzette Alcala PA-C LAB BLOOD ORDERABLES Final Result LABORATORY [facility] [place] [address] [place] [address] * (ABNORMAL) BASIC METABOLIC PANEL (06/21/2024 5:48 AM EDT) BUN 7 6 - 20 mg/dL 06/21/2024 6:21 AM EDT LAB[facility] CREATININE 0.8 0.5 - 1.0 mg/dL 06/21/2024 6:21 AM EDT LAB[facility]ORY [facility] EGFR 85 >=60 mL/min 06/21/2024 6:21 AM EDT LAB[facility] Comment:eGFR is calculated b ased on the CKD-EPI 2020 equation. SODIUM 136 135 - 146 mmol/L 06/21/2024 6:21 AM EDT LAB[facility]ORY [facility] POTASSIUM 4.4 3.5 - 5.1 mmol/L 06/21/2024 6:21 AM EDT LAB[facility] CHLORIDE 108(H) 98 - 107 mmol/L 06/21/2024 6:21 AM EDT LAB[facility]ORY [facility] CO2 20(L) 22 - 32 mmol/L 06/21/2024 6:21 AM EDT LAB[facility] ANION GAP 8 7 - 15 mmol/L 06/21/2024 6:21 AM EDT [facility] GLUCOSE 101 70 - 120 mg/dL 06/21/2024 6:21 AM EDT LAB[facility] CALCIUM 6.7(L) 8.4 - 10.2 mg/dL 06/21/2024 6:21 AM EDT [facility] Blood Venous blood specimen / Unknown Venipuncture / Unknown 06/21/2024 5:48 AM EDT 06/21/2024 5:51 AM EDT Suzette Alcala PA-C LAB BLOOD ORDERABLES Final Result [facility] [address] [place] [address] * (ABNORMAL) CBC (06/21/2024 5:48 AM EDT) Pathologist [facility] WBC 7.23 4.00 - 10.80 K/uL 06/21/2024 6:03 AM EDT LAB[facility]ATORY [facility] RBC 2.66 3.85 - 5.15 M/uL 06/21/2024 6:03 AM EDT LAB[facility] HGB 8.4(L) 12.0 - 15.3 g/dL 06/21/2024 6:03 AM EDT LAB[facility]ORY [facility] HCT 26.0(L) 36.0 - 45.2 % 06/21/2024 6:03 AM EDT LAB[facility] MCV 97.7 81.5 - 97.5 fL 06/21/2024 6:03 AM EDT LAB[facility] MCH 31.6 27.0 - 34.0 pg 06/21/2024 6:03 AM EDT [facility] MCHC 32.3 32.0 - 36.0 g/dL 06/21/2024 6:03 AM EDT LAB[facility] RDW 14.6 11.5 - 15.5 % 06/21/2024 6:03 AM EDT LAB[facility] PLT 112(L) 140 - 400 K/uL 06/21/2024 6:03 AM EDT LAB[facility] MPV 9.6 6.6 - 11.1 fL 06/21/2024 6:03 AM EDT LABORATORY C NRBCs 0 <=0 /100 WBCs 06/21/2024 6:03 AM EDT LABORATORY C Blood Venous blood specimen / Unknown Venipuncture / Unknown 06/21/2024 5:48 AM EDT 06/21/2024 5:51 AM EDT Suzette Alcala PA-C LAB BLOOD ORDERABLES Final Result LABORATORY [facility] [place] [address] [place] [address] * TRANSFUSE PACKED RED BLOOD CELLS (06/20/2024 2:24 PM EDT) Joseph Rg MD [facility] B[facility] TRANFUSE ORDE RABLES Final Result * TRANSFUSE PACKED RED BLOOD CELLS (06/20/2024 2:24 PM EDT) Joseph Rg MD [facility] B[facility] TRANFUSE ORDE RABLES Final Result * PREPARE PACKED RED BLOOD CELLS (06/20/2024 9:25 AM EDT) [facility] Unit Product Code [id number] 06/21/2024 12:10 PM EDT LABORATORY [facility] [place] [facility] Unit Number [id number] 06/21/2024 12:10 PM EDT LABORATORY C BLOOD BANK Unit ABO O 06/21/2024 12:10 PM EDT LABORATORY C BLOOD BANK Unit Rh POS 06/21/2024 12:10 PM EDT LABORATORY C BLOOD BANK Unit Crossmatch Compatible 06/20/2024 9:52 AM EDT LAB[facility] BLOOD BANK Unit Status PT 06/21/2024 12:10 PM EDT LABORATORY C BLOOD BANK Unit Blood Type OPOS 06/21/2024 12:10 PM EDT LABORATORY C BLOOD BANK Unit Expiration [id number] 06/21/2024 12:10 PM EDT LABORATORY C BLOOD BANK Unit Barcode 5100 06/21/2024 12:10 PM EDT LABORATORY [facility] [place] [facility] 06/20/2024 9:25 AM EDT Joseph Rg MD BLD BANK PRODUCT ORDER KEVEN Edited Result - Final Performing Organization Address City/[facility]/ZIP Co de Phone Number LABORATORY [facility] [place] B[facility]OD [facility] [address] [place] [address] * (ABNORMAL) BASIC METABOLIC PANEL (06/20/2024 6:15 AM EDT) BUN 9 6 - 20 mg/dL 06/20/2024 7:38 AM EDT LABORATORY [facility] CREATININE 0.8 0.5 - 1.0 mg/dL 06/20/2024 7:38 AM EDT LAB[facility] EGFR 80 >=60 mL/min 06/20/2024 7:38 AM EDT LAB[facility] Comment:eGFR is calculated b ased on the CKD-EPI 2020 equation. SODIUM 140 135 - 146 mmol/L 06/20/2024 7:38 AM EDT LAB[facility] POTASSIUM 4.7 3.5 - 5.1 mmol/L 06/20/2024 7:38 AM EDT LAB[facility] CHLORIDE 110(H) 98 - 107 mmol/L 06/20/2024 7:38 AM EDT LAB[facility] CO2 23 22 - 32 mmol/L 06/20/2024 7:38 AM EDT LAB[facility] ANION GAP 7 7 - 15 mmol/L 06/20/2024 7:38 AM EDT LAB[facility] GLUCOSE 80 70 - 120 mg/dL 06/20/2024 7:38 AM EDT LAB[facility] CALCIUM 6.2(L) 8.4 - 10.2 mg/dL 06/20/2024 7:38 AM EDT LABORATORY C Blood Venous blood specimen / Unknown Venipuncture / Unknown 06/20/2024 6:15 AM EDT 06/20/2024 6:42 AM EDT Suzette Alcala PA-C LAB BLOOD ORDERABLES Final Result LABORATORY [facility] [place] [address] [place] [address] * (ABNORMAL) CBC (06/20/2024 6:15 AM EDT) WBC 6.48 4.00 - 10.80 K/uL 06/20/2024 7:02 AM EDT LAB[facility] RBC 2.11 3.85 - 5.15 M/uL 06/20/2024 7:02 AM EDT LAB[facility]ATORY [facility] HGB 6.7(L) 12.0 - 15.3 g/dL 06/20/2024 7:02 AM EDT LAB[facility]ATORY [facility] HCT 20.9(L) 36.0 - 45.2 % 06/20/2024 7:02 AM EDT LAB[facility]ORY [facility] MCV 99.1 81.5 - 97.5 fL 06/20/2024 7:02 AM EDT LAB[facility]ATORY [facility] MCH 31.8 27.0 - 34.0 pg 06/20/2024 7:02 AM EDT LAB[facility]ORY [facility] MCHC 32.1 32.0 - 36.0 g/dL 06/20/2024 7:02 AM EDT LAB[facility]ATORY [facility] RDW 13.6 11.5 - 15.5 % 06/20/2024 7:02 AM EDT LAB[facility]ATORY [facility] PLT 133(L) 140 - 400 K/uL 06/20/2024 7:02 AM EDT LAB[facility]ATORY [facility] MPV 9.4 6.6 - 11.1 fL 06/20/2024 7:02 AM EDT LAB[facility]ATORY G[facility] NRBCs 0 <=0 /100 WBCs 06/20/2024 7:02 AM EDT LAB[facility]ATORY G[facility] Blood Venous blood specimen / Unknown Venipuncture / Unknown 06/20/2024 6:15 AM EDT 06/20/2024 6:42 AM EDT Suzette Alcala PA-C LAB BLOOD ORDERABLES Final Result LABORATORY C [address] [facility] [place] [id number] * EKG (06/20/2024 3:47 AM EDT) 06/20/2024 3:47 AM EDT Narrative Procedure Note Akash Terrell MD - 06/20/2024 3:47 AM EDT REASON FOR STUDY: Chest pain CONCLUSIONS: Normal sinus rhythm Normal ECG When compared with ECG of 02-Jun-2024 12:08, QT has lengthened Ventricular Rate: 69 Atrial Rate: 69 UT Interval: 148 QRS Duration: 72 QT/QTc: 430/460 ms P-R-T [place]: 48 : 22 : 40 degrees Ramsey Leon MD EKG Final Result Performing Organization Address City/[facility]/[place]UST Co de Phone Number [facility] CARDIOLOGY * XR INTRA-OP C-ARM CASE (06/19/2024 2:33 PM EDT) Narrative 06/19/2024 2:35 PM EDT This procedure will not be read by a Radiologist. Please see operative note. Suzette Alcala PA-C RADIOLOGY (RAD GENER AL) Final Result * GLUCOSE METER, POINT OF CARE (06/19/2024 2:01 PM EDT) [facility] Glucose - POCT 84 70 - 120 mg/dL 06/19/2024 2:15 PM EDT [facility] Blood Whole blood specimen / Unknown 06/19/2024 2:01 PM EDT 06/19/2024 2:15 PM EDT Joseph Giordano MD LAB POINT OF CARE TEST DOCKED DEVICE UNSOLICITED RESULTS Final Result Performing Organization Address City/[facility]/ZIP Co de Phone Number [facility] [address] [place] [address] * TYPE AND SCREEN (06/19/2024 11:00 AM EDT) ABO O 06/19/2024 2:30 PM EDT LABORATORY [facility] Rh Positive 06/19/2024 2:30 PM EDT LABORATORY [facility] Red Blood Cell Antibody Screen Negative 06/19/2024 2:30 PM EDT LABORATORY [facility] Specimen Expiration Date 06/22/2024 23:59 06/19/2024 2:30 PM EDT LABORATORY [facility] BLO[facility] Blood Arterial blood specimen / Unknown Arterial Puncture / Unknown 06/19/2024 11:00 AM EDT 06/19/2024 1:46 PM EDT Joseph Mohan MD LAB BLOOD BANK TEST ORDERABLES Final Result Performing Organization Address City/[facility]/ZIP Co de Phone Number LABORATORY [facility] [address] [place] [address] * GLUCOSE METER, POINT OF CARE (06/19/2024 10:56 AM EDT) [facility] Glucose - POCT 81 70 - 120 mg/dL 06/19/2024 11:02 AM EDT [facility] [employer] [facility] Blood 06/19/2024 10:5 6 AM EDT 06/19/2024 11:02 AM EDT Suzette Alcala PA-C LAB POINT OF CARE TEST DOCKED DEVICE UNSOLICITED RESULTS Final Result Performing Organization Address City/[facility]/[place] Co de Phone Number [facility] [address] [place] [address] documented in this encounter Visit Diagnoses Diagnosis Spinal stenosis, lumbar- Primary Spinal stenosis, lumbar region, without neurogenic claudication DDD (degenerative disc disease), cervical Degeneration of cervical intervertebral disc Spinal stenosis, lumbar Spinal stenosis, lumbar region, without neurogenic claudication Chest pain Chest pain, unspecified documented in this encounter Administered Medications Inactive Administered Medications - up to 3 most recent administrations Medication Order MAR Action Action Date Dose Rate Site Acetaminophen (Tylenol) tab 975 mg 975 mg, Oral, PREOP, First dose on Sat06/19/24 at 1045, Last dose on Sat06/19/24 at 1045, For 1 dose, Maximum 4 g acetaminophen/day. Avoid in patients with severe hepatic impairment or severe active liver disease. Administer 60 minutes prior to OR. , Pre-OpIndications:DDD (degenerative disc disease), cervical Given 06/19/2024 10:33 AM EDT 975 mg Acetaminophen (Tylenol) tab 975 mg 975 mg, Oral, QID(AM/NOON/PM/HS), First dose on Sat06/19/24 at 1800, Last dose on Sat06/24/24 at 1200, For 5 days, Maximum of 4 grams (4000 mg) per day., Post-op Given 06/24/2024 11:44 AM EDT 975 mg Given 06/23/2024 8:39 PM EDT 975 mg Given 06/23/2024 5:33 PM EDT 975 mg buPROPion (Wellbutrin) tab 100 mg 100 mg, Oral, BID (.AM/PM), First dose on Sat06/19/24 at 2100, Until Discontinued, Post-op Given 06/25/2024 8:31 AM EDT 100 mg Given 06/24/2024 9:22 PM EDT 100 mg Given 06/24/2024 8:11 AM EDT 100 mg calcium CARBonate (Tums E-X) tab CHEW 750 mg 750 mg, Oral, BID PRN Indigestion, Starting on Sat06/22/24 at 1212, Until Elle 06/25/24 at 2156 Given 06/23/2024 12:10 PM EDT 750 mg Given 06/22/2024 5:36 PM EDT 750 mg Given 06/22/2024 12:55 PM EDT 750 mg cloNIDine (Duraclon) inj 100 mcg 100 mcg, IV Push, ONCE, On Sat06/19/24 at 1600, For 1 dose, Hold for SBP <100mmHg, PACU Given 06/19/2024 3:35 PM EDT 100 mcg CYANOCOBALAMIN (vitamin B-12) tab 1,000 mcg 1,000 mcg, Oral, Daily(AM), First dose on Sat06/22/24 at 0945, Until Discontinued Given 06/25/2024 8:30 AM EDT 1,00 0 mcg Given 06/24/2024 8:10 AM EDT 1,000 mcg Given 06/23/2024 9:09 AM EDT 1,000 mcg Docusate Sodium (Colace) cap 100 mg 100 mg, Oral, BID (.AM/PM), First dose on Sat06/19/24 at 2100, Until Discontinued, For oral administration ONLY, if route of administration is other than oral and alternative product must be ordered., Post-op Given 06/25/2024 8:3 0 AM EDT 100 mg Given 06/24/2024 9:22 PM EDT 100 mg Given 06/24/2024 8:11 AM EDT 100 mg fentaNYL (PF) inj 25 mcg 25 mcg, IV Push, Q10 MIN PRN Pain, Severe, Starting on Sat06/19/24 at 1527, Until Sat06/19/24 at 1542, For 2 doses, When given IV Push its recommended that the dose be given over 3 to 5 minutes., PACU Given 06/19/2024 3:42 PM EDT 25 mcg Given 06/19/2024 3:31 PM EDT 25 mcg folic acid tab 1 mg 1 mg, Oral, Daily(AM), First dose on Sat06/22/24 at 0945, Until Discontinued Given 06/25/2024 8:30 AM EDT 1 mg Given 06/24/2024 8:12 AM EDT 1 mg Given 06/23/2024 9:09 AM EDT 1 mg HYDROmorphone (Dilaudid) inj 0.2 mg 0.2 mg, IV Push, Q10 MIN PRN Pain, Mild, Pain, Moderate, Starting on Sat06/19/24 at 1528, Until Sat06/19/24 at 1737, For 4 doses, PACU Given 06/19/2024 4:12 PM EDT 0.2 mg Given 06/19/2024 3:53 PM EDT 0.2 mg HYDROmorphone (Dilaudid) inj 0.5 mg 0.5 mg, IV Push, Q4H PRN Pain, Breakthrough, Starting on Sat06/19/24 at 1431, Until Elle 06/25/24 at 2156, Do not use with [employer] (unless directed by provider). May use if patient unable to take oral pain medications., Post-op Given 06/25/2024 12:39 AM EDT 0.5 mg Given 06/21/2024 6:26 AM EDT 0.5 mg Given 06/19/2024 7:34 PM EDT 0.5 mg Iron Dextran (INFeD) 975 mg in NSS 250 mL INFUSION 975 mg, IV Piggyback, ONCE, 1 dose, On Sat06/22/24 at 1045, Administer over 1 Hours, - Administer iron dextran infusion bag over 1 hour - Monitor for infusion reactions with vitals at 30 minutes and 60 minutes after starting the infusion. - If patient develops sign/symptoms of reaction or vital signs outside normal limits: 1) STOP infusion 2) CONTACT physician New Bag 06/22/2024 1:04 PM EDT 975 mg 274.5 mL/hr Iron Dextran (Infed) IV Push TEST DOSE 25 mg IV Push, Administer over 0.5 Minutes, -Educate patient on signs/symptoms of infusion reaction -Administer 25 mg test dose of iron dextran before infusion bag -Observe patient for signs/symptoms of reaction with vital signs before test dose, then at 15 minutes after administering the test dose -If patient tolerates test dose with no reaction, proceed with iron dextran infusion -HOLD infusion and contact physician immediately if patient reacts to test dose, ONCE, 1 dose, On 06/22/24 at 0945 Given 06/22/2024 11:12 AM EDT 25 mg Isolyte-S pH 7.4 infusion Intravenous, at 100 mL/hr, Plasma-LYTE 148, isolyte-S, and isolyte-S pH 7.4 are considered equivalent - including for MAR barcode scanning., CONTINUOUS, Starting on Sat06/19/24 at 1045, Until Sat06/19/24 at 1432, Pre-OpIndications:DDD (degenerative disc disease), cervical Restarted 06/19/2024 1:04 PM EDT Continue from Pre-Op 06/19/2024 11:54 AM EDT 10 0 mL/hr New Bag 06/19/2024 10:33 AM EDT 100 mL/hr Lisinopril (Prinivil) tab 1.25 mg 1.25 mg, Oral, Daily(AM), First dose on 06/20/24 at 0900, Until Discontinued, Post-op Given 06/25/2024 6:43 AM EDT 1.25 mg Given 06/24/2024 8:11 AM EDT 1.25 mg Given 06/23/2024 9:14 AM EDT 1.25 mg Lisinopril (Prinivil) tab 1.25 mg 1.25 mg, Oral, ONCE, On Elle 06/25/24 at 0800, For 1 dose Given 06/25/2024 8:30 AM EDT 1.25 mg Lisinopril (Prinivil) tab 2.5 mg 2.5 mg, Oral, Daily(AM), First dose (after last modification) on Sat06/26/24 at 0900, Until Discontinued, Post-op Metoprolol Tartrate (Lopressor) tab 12.5 mg 12.5 mg, Oral, BID (.AM/PM), First dose on Sat06/19/24 at 2100, Until Discontinued, Hold for HR less than 60 or SBP below 100 and notify service if dose is held, Post-op Given 06/25/2024 8:30 AM EDT 12.5 mg Given 06/24/2024 9:22 PM EDT 12.5 mg Given 06/24/2024 8:10 AM EDT 12.5 mg multivitamin (Mvi) 1 Tablet 1 Tablet, Oral, DAILY NOON, First dose on Sat06/19/24 at 1515, Until Discontinued, Post-op Given 06/25/2024 11:47 AM EDT 1 Tablet Given 06/24/2024 11:45 AM EDT 1 Tablet Given 06/23/2024 12:10 PM EDT 1 Tablet NSS infusion Intravenous, at 100 mL/hr, CONTINUOUS, Starting on Sat06/19/24 at 1515, Until [place] 06/21/24 at 1539, Post-op New Bag 06/21/2024 4:50 AM EDT 10 0 mL/hr New Bag 06/20/2024 6:34 PM EDT 100 mL/hr Rate Verify 06/20/2024 5:15 AM EDT 100 mL/hr ondansetron (Zofran) inj 4 mg 4 mg, IV Push, Q6H PRN Other, May use for nausea or vomiting if patient unable to take oral ondansetron, Starting on Sat06/19/24 at 1431, Until Elle 06/25/24 at 2156, Post-op Given 06/25/2024 6:25 AM EDT 4 m g Given 06/23/2024 12:44 PM EDT 4 mg Given 06/21/2024 4:48 AM EDT 4 mg ondansetron ODT (Zofran) tab 4 mg 4 mg, On Tongue, Q6H PRN Nausea, Vomiting, Starting on Sat06/19/24 at 1431, Until Elle 06/25/24 at 2156, Post-op Given 06/24/2024 9:48 AM EDT 4 mg Given 06/21/2024 6:33 PM EDT 4 mg oxyBUTYnin XL (Ditropan XL) tab 30 mg 30 mg, Oral, Daily(AM), First dose on Sat06/20/24 at 0900, Until Discontinued, This med should NOT be Crushed or Chewed, Post-op Given 06/25/2024 8:31 AM EDT 30 mg Given 06/24/2024 8:11 AM EDT 30 mg Given 06/23/2024 9:14 AM EDT 30 mg oxyCODONE (Oxy IR) tab 10 mg 10 mg, Oral, Q4H PRN Pain, Severe, Starting on Sat06/19/24 at 1431, Until Sat06/25/24 at 2156, Hold for somnolence or respiratory rate less than 10, Post-op Given 06/25/2024 4:53 PM EDT 10 mg Given 06/25/2024 6:42 AM EDT 10 mg Given 06/24/2024 9:22 PM EDT 10 mg oxygen GAS Inhalation, OXYGEN, First dose on Sat06/22/24 at 0945, Until Discontinued, Device/Managed by: Low Flow Device, Goal SPO2 (%): 91-95, Starting Device: Nasal Cannula, Initial Flow Rate (LPM): 2, Lowest Support: Nasal Cannula: Flow 0-6 LPM. Titrate up/down by 1 LPM., Titration Interval: Q2 minutes and as needed., Notify Provider: For sudden DECREASE in resting SPO2 to less than 85% and when escalating delivery device., Wean patient off Oxygen when the oxygen saturation is greater than or equal to 93% pantoprazole (Protonix) tab 40 mg 40 mg, Oral, Daily(AM), First dose on Sat06/20/24 at 0900, Until Discontinued, This med should NOT be Crushed or Chewed, Post-op Given 06/25/2024 8:30 AM EDT 40 mg Given 06/24/2024 8:11 AM EDT 40 mg Given 06/23/2024 9:09 AM EDT 40 mg Polyethylene Glycol 3350 (Miralax) oral powder 17 g 17 g (1 Packet), Oral, Daily(AM), First dose on Sat06/23/24 at 0900, Until Discontinued, Mix in 8 oz of water, juice, soda, coffee, or tea. Given 06/25/2024 8:30 AM EDT 17 g Given 06/24/2024 8:11 AM EDT 17 g Given 06/23/2024 9:08 AM EDT 17 g Povidone-Iodine nasal swab 4 Swab 4 Swab, Nasal, PREOP, First dose on Sat06/19/24 at 1045, Last dose on Sat06/19/24 at 1045, For 1 dose, Tilt the bottle slightly, dip one swab into solution and stir vigorously for 10 seconds. Withdraw the swab slowly to avoid wiping solution off during removal. Insert swab comfortably into one nostril and rotate for 15 seconds, covering all surfaces. Then focus on the inside tip of nostril and rotate for an additional 15 seconds. Using a new swab, Repeat above steps in the other nostril (Swab 2). Repeat the application in both nostrils using a fresh swab each times (Swab 3 and 4)., Pre-OpIndications:DDD (degenerative disc disease), cervical Given 06/19/2024 10:33 AM EDT 4 Swa bs Pregabalin (Lyrica) cap 150 mg 150 mg, Oral, PREOP, First dose on Sat06/19/24 at 1045, Last dose on Sat06/19/24 at 1045, For 1 dose, Reduce dose as below for CrCl Level: CrCl less than 30 ml/min = 50 mg preop CrCl 30 - 60 ml/min = 150 mg preop CrCl greater than 60 ml/min = 300 mg preop Do not use with gabapentin. Administer 60 minutes prior to OR., Pre-OpIndications:DDD (degenerative disc disease), cervical Given 06/19/2024 10:33 AM EDT 150 mg Primidone (Mysoline) tab 25 mg 25 mg, Oral, BID (.AM/PM), First dose on Sat06/19/24 at 2100, Until Discontinued, Post-op Given 06/25/2024 8:31 AM EDT 25 mg Given 06/24/2024 9:22 PM EDT 25 mg Given 06/24/2024 8:11 AM EDT 25 mg Prochlorperazine (Compazine) inj 10 mg 10 mg, IV Push, Q6H PRN Nausea, Vomiting, Starting on Sat06/19/24 at 1431, Until Elle 06/25/24 at 2156, Use as second line therapy if nausea and/or vomiting unrelieved with ondansetron. May use if patient unable to take oral prochlorperazine., Post-op Given 06/25/2024 5:45 AM EDT 10 mg Given 06/21/2024 8:07 PM EDT 10 mg prochlorperazine (Compazine) tab 10 mg 10 mg, Oral, Q6H PRN Nausea, Vomiting, Starting on Sat06/19/24 at 1431, Until Elle 06/25/24 at 2156, Use as second line therapy if nausea and/or vomiting unrelieved with ondansetron., Post-op Saline ([place]) nasal spray 1 [place], Nasal, PRN Irritation, Starting on Sat06/22/24 at 1001, Until Elle 06/25/24 at 2156 Given 06/25/2024 10:00 AM EDT 1 [place] Given 06/22/2024 5:25 PM EDT 1 [place] senna (Senokot) 2 Tablet 2 Tablet, Oral, Daily(AM), First dose on Sat06/20/24 at 0900, Until Discontinued, hold if patient have loose stool or frequent bowel movements, Post-op Given 06/25/2024 8:30 AM EDT 2 Tablets Given 06/24/2024 8:11 AM EDT 2 Tablets Given 06/23/2024 9:08 AM EDT 2 Tablets tiZANidine (Zanaflex) tab 4 mg 4 mg, Oral, Q8H PRN Muscle spasms, Starting on Sat06/19/24 at 1431, Until Elle 06/25/24 at 2156, Post-op Given 06/24/2024 11:45 AM EDT 4 mg Given 06/23/2024 5:33 PM EDT 4 mg Given 06/22/2024 10:35 PM EDT 4 mg traMADol ER (Ultram ER) tab 200 mg 200 mg, Oral, PREOP, First dose on Sat06/19/24 at 1045, Last dose on Sat06/19/24 at 1045, For 1 dose, Administer 60 minutes prior to OR , Pre-OpIndications:DDD (degenerative disc disease), cervical Given 06/19/2024 10:33 AM EDT 200 m g traMADol ER (Ultram ER) tab 200 mg 200 mg, Oral, ONCE, On Sat06/20/24 at 0800, For 1 dose, POD #1, Post-op Given 06/20/2024 9:21 AM EDT 200 mg traZODone (Desyrel) tab 150 mg 150 mg, Oral, HS, First dose on Sat06/19/24 at 2200, Until Discontinued, Post-op Given 06/24/2024 9:22 PM EDT 150 mg Given 06/23/2024 8:38 PM EDT 150 mg Given 06/22/2024 8:46 PM EDT 150 mg Vancomycin (Vancocin) 750 mg in NSS 100 mL ivpb 750 mg, IV Piggyback, Q12H, 1 dose, First dose on Sat06/19/24 at 2100, Give 12 hours after preop dose, Post-op New Bag 06/19/2024 10:27 PM EDT 750 mg 112.5 mL/h r documented in this encounter Active and Recently Administered Medications Times are shown in EDT. Scheduled Medication Order 06/23/2024 06/24/2024 06/25/2024 Acetaminophen (Tylenol) tab 975 mg () 975 mg, Oral, QID(AM/NOON/PM/HS), First dose on Sat06/19/24 at 1800, Last dose on Sat06/24/24 at 1200, For 5 days, Maximum of 4 grams (4000 mg) per day., Post-op 0542 (Given - Provider: Sylvia Snell RN)1210 (Given - Provider: Emily Briones, ESPERANZA)1733 (Given - Provider: Emily Briones, ESPERANZA)2039 (Given - Provider: Mehnaz Devries LPN) 0600 (Not Given - Provider: Mehnaz Devries LPN - Reason: Refused-Notify Provider - Comment: Ortho Resident, Ramsey Leon, made aware)1144 (Given - Provider: Rebeca Schroeder RN) buPROPion (Wellbutrin) tab 100 mg 100 mg, Oral, BID (.AM/PM), First dose on Sat06/19/24 at 2100, Until Discontinued, Post-op 913 (Given - Provider: Emily Briones RN)2038 (Given - Provider: Mehnaz Devries LPN) 810 (Given - Provider: Rebeca Schroeder RN)2121 (Given - Provider: Crystal Carlin RN) 0831 (Given - Provider: Rebeca Schroeder RN) CYANOCOBALAMIN (vitamin B-12) tab 1,000 mcg 1,000 mcg, Oral, Daily(AM), First dose on Sat06/22/24 at 0945, Until Discontinued 908 (Given - Provider: Emily Briones RN) 809 (Given - Provider: Rebeca Schroeder RN) 08 (Given - Provider: Rebeca Schroeder RN) Docusate Sodium (Colace) cap 100 mg 100 mg, Oral, BID (.AM/PM), First dose on Sat06/19/24 at 2100, Until Discontinued, For oral administration ONLY, if route of administration is other than oral and alternative product must be ordered., Post-op 908 (Given - Provider: Emily Briones RN)2038 (Given - Provider: Mehnaz Devries LPN) 810 (Given - Provider: Rebeca Schroeder RN)2121 (Given - Provider: Crystal Carlin RN) 0830 (Given - Provider: Rebeca Schroeder RN) folic acid tab 1 mg 1 mg, Oral, Daily(AM), First dose on Sat06/22/24 at 0945, Until Discontinued 908 (Given - Provider: Emily Briones RN) 08 (Given - Provider: Rebeca Schroeder RN) 0830 (Given - Provider: Rebeca Schroeder RN) Lisinopril (Prinivil) tab 1.25 mg (CANCELED) 1.25 mg, Oral, Daily(AM), First dose on Sat06/20/24 at 0900, Until Discontinued, Post-op 14 (Given - Provider: Emily Briones RN) 08 (Given - Provider: Rebeca Schroeder RN) 0643 (Given - Provider: Manuelito Bryant RN - Comment: Per provider request Loan Meyers) Lisinopril (Prinivil) tab 1.25 mg (COMPLETED) 1.25 mg, Oral, ONCE, On Elle 06/25/24 at 0800, For 1 dose 0830 (Given - Provider: Rebeca Schroeder RN) Lisinopril (Prinivil) tab 2.5 mg 2.5 mg, Oral, Daily(AM), First dose (after last modification) on Sat06/26/24 at 0900, Until Discontinued, Post-op Metoprolol Tartrate (Lopressor) tab 12.5 mg 12.5 mg, Oral, BID (.AM/PM), First dose on Sat06/19/24 at 2100, Until Discontinued, Hold for HR less than 60 or SBP below 100 and notify service if dose is held, Post-op 907 (Given - Provider: Emily Briones RN)2037 (Given - Provider: Mehnaz Devries LPN) 809 (Given - Provider: Rebeca Schroeder RN)2121 (Given - Provider: Crystal Carlin RN) 0830 (Given - Provider: Rebeca Schroeder, ESPERANZA) multivitamin (Mvi) 1 Tablet 1 Tablet, Oral, DAILY NOON, First dose on Sat06/19/24 at 1515, Until Discontinued, Post-op 1210 (Given - Provider: Emily Briones RN) 1145 (Given - Provider: Rebeca Schroeder RN) 1147 (Given - Provider: Rebeca Schroeder RN) oxyBUTYnin XL (Ditropan XL) tab 30 mg 30 mg, Oral, Daily(AM), First dose on 06/20/24 at 0900, Until Discontinued, This med should NOT be Crushed or Chewed, Post-op 09 (Given - Provider: Emily Briones RN) 08 (Given - Provider: Rebeca Schroeder RN) 0831 (Given - Provider: Rebeca Schroeder RN) oxygen GAS Inhalation, OXYGEN, First dose on 06/22/24 at 0945, Until Discontinued, Device/Managed by: Low Flow Device, Goal SPO2 (%): 91-95, Starting Device: Nasal Cannula, Initial Flow Rate (LPM): 2, Lowest Support: Nasal Cannula: Flow 0-6 LPM. Titrate up/down by 1 LPM., Titration Interval: Q2 minutes and as needed., Notify Provider: For sudden DECREASE in resting SPO2 to less than 85% and when escalating delivery device., Wean patient off Oxygen when the oxygen saturation is greater than or equal to 93% 0800 (Oxygen Off - Provider: Emily Briones RN)1600 (Oxygen Off - Provider: Emily Briones RN) 0000 (Oxygen Off - Provider: Mehnaz Devries LPN)0800 (Oxygen Off - Provider: Rebeca Schroeder RN)1600 (Oxygen Off - Provider: Rebeca Schroeder RN) 0000 (Oxygen Off - Provider: Manuelito Bryant RN)0800 (Oxygen Off - Provider: Rebeca Schroeder RN)1600 (Oxygen Off - Provider: Rebeca Schroeder RN) pantoprazole (Protonix) tab 40 mg 40 mg, Oral, Daily(AM), First dose on Sat06/20/24 at 0900, Until Discontinued, This med should NOT be Crushed or Chewed, Post-op 09 (Given - Provider: Emily Briones RN) 08 (Given - Provider: Rebeca Schroeder RN) 08 (Given - Provider: Rebeca Schroeder RN) Polyethylene Glycol 3350 (Miralax) oral powder 17 g 17 g (1 Packet), Oral, Daily(AM), First dose on Sat06/23/24 at 0900, Until Discontinued, Mix in 8 oz of water, juice, soda, coffee, or tea. 0908 (Given - Provider: Emily Briones RN) 08 (Given - Provider: Rebeca Schroeder RN) 08 (Given - Provider: Rebeca Schroeder RN) Primidone (Mysoline) tab 25 mg 25 mg, Oral, BID (.AM/PM), First dose on Sat06/19/24 at 2100, Until Discontinued, Post-op 0916 (Given - Provider: Emily Briones RN)2156 (Given - Provider: Mehnaz Devries LPN) 810 (Given - Provider: Rebeca Schroeder RN)2121 (Given - Provider: Crystal Carlin, ESPERANZA) 830 (Given - Provider: Rebeca Schroeder, ESPERANZA) senna (Senokot) 2 Tablet 2 Tablet, Oral, Daily(AM), First dose on 06/20/24 at 0900, Until Discontinued, hold if patient have loose stool or frequent bowel movements, Post-op 907 (Given - Provider: Emily Briones RN) 810 (Given - Provider: Rebeca Schroeder, ESPERANZA) 829 (Given - Provider: Rebeca Schroeder, ESPERANZA) traZODone (Desyrel) tab 150 mg 150 mg, Oral, HS, First dose on Sat06/19/24 at 2200, Until Discontinued, Post-op 2037 (Given - Provider: Mehnaz Devries LPN) 2121 (Given - Provider: Crystal Carlin RN) PRN Medication Order 06/23/2024 06/24/2024 06/25/2024 Acetaminophen (Tylenol) tab 975 mg 975 mg, Oral, Q6H PRN Pain, Mild, Fever >38C(100.5F), Starting on Sat06/24/24 at 0000, Until Elle 06/25/24 at 2156, Maximum 4 g acetaminophen/day. Avoid in patients with severe hepatic impairment or severe active liver disease. Begin after around the clock acetaminophen order discontinued (S+5)., Post-op calcium CARBonate (Tums E-X) tab CHEW 750 mg 750 mg, Oral, BID PRN Indigestion, Starting on Sat06/22/24 at 1212, Until Elle 06/25/24 at 2156 1210 (Given - Provider: Emily Briones, ESPERANZA) HYDROmorphone (Dilaudid) inj 0.5 mg 0.5 mg, IV Push, Q4H PRN Pain, Breakthrough, Starting on Sat06/19/24 at 1431, Until Elle 06/25/24 at 2156, Do not use with [employer] (unless directed by provider). May use if patient unable to take oral pain medications., Post-op 38 (Given - Provider: Manuelito Bryant RN) LORazepam (Ativan) tab 0.25 mg 0.25 mg, Oral, PRN Anxiety, Starting on Sat06/19/24 at 1427, Until Elle 06/25/24 at 2156, Post-op milk of magnesia (Mom) oral susp 30 mL 30 mL, Oral, BID PRN Constipation, Starting on Sat06/21/24 at 0800, Until Elle 06/25/24 at 2156, Post-op naloxone (Narcan) 0.4 MG/ML inj 0.08 mg 0.08 mg, IV Push, PRN Other, If patient is over sedated or Respiratory Rate less than 8, Starting on Sat06/19/24 at 1431, Until Elle 06/25/24 at 2156, Call provider if patient is over sedated or Respiratory Rate is less than 8, Post-op ondansetron (Zofran) inj 4 mg(Linked Group 1) 4 mg, IV Push, Q6H PRN Other, May use for nausea or vomiting if patient unable to take oral ondansetron, Starting on Sat06/19/24 at 1431, Until Elle 06/25/24 at 2156, Post-op 1244 (Given - Provider: Emily Briones RN) 0948 (See Alternative - Provider: Rebeca Schroeder RN) 0625 (Given - Provider: Manuelito Bryant, ESPERANZA) ondansetron ODT (Zofran) tab 4 mg(Linked Group 1) 4 mg, On Tongue, Q6H PRN Nausea, Vomiting, Starting on Sat06/19/24 at 1431, Until Elle 06/25/24 at 2156, Post-op 1244 (See Alternative - Provider: Emily Briones RN) 0948 (Given - Provider: Rebeca Schroeder RN) 0625 (See Alternative - Provider: Manuelito Bryant, ESPERANZA) oxyCODONE (Oxy IR) tab 10 mg 10 mg, Oral, Q4H PRN Pain, Severe, Starting on Sat06/19/24 at 1431, Until Elle 06/25/24 at 2156, Hold for somnolence or respiratory rate less than 10, Post-op 0909 (Given - Provider: Emily Briones RN)1604 (Given - Provider: Emily Briones, ESPERANZA)2038 (Given - Provider: Mehnaz Devries LPN) 0948 (Given - Provider: Rebeca Schroeder, ESPERANZA)170 (Given - Provider: Rebeca Schroeder RN)2121 (Given - Provider: Crystal Carlin, ESPERANZA) 0642 (Given - Provider: Manuelito Bryant, ESPERANZA)1653 (Given - Provider: Rebeca Schroeder, ESPERANZA) oxyCODONE (Oxy IR) tab 5 mg 5 mg, Oral, Q4H PRN Pain, Moderate, Starting on Sat06/19/24 at 1431, Until Elle 06/25/24 at 2156, Hold for somnolence or respiratory rate less than 10, Post-op Prochlorperazine (Compazine) inj 10 mg(Linked Group 2) 10 mg, IV Push, Q6H PRN Nausea, Vomiting, Starting on Sat06/19/24 at 1431, Until Elle 06/25/24 at 2156, Use as second line therapy if nausea and/or vomiting unrelieved with ondansetron. May use if patient unable to take oral prochlorperazine., Post-op 0545 (Given - Provider: Manuelito Bryant RN) prochlorperazine (Compazine) tab 10 mg(Linked Group 2) 10 mg, Oral, Q6H PRN Nausea, Vomiting, Starting on Sat06/19/24 at 1431, Until Elle 06/25/24 at 2156, Use as second line therapy if nausea and/or vomiting unrelieved with ondansetron., Post-op 0545 (See Alternative - Provider: Manuelito Bryant RN) Saline ([place]) nasal spray 1 [place], Nasal, PRN Irritation, Starting on 06/22/24 at 1001, Until Elle 06/25/24 at 2156 1000 (Given - Provider: Ksenia Blankenship RN) tiZANidine (Zanaflex) tab 4 mg 4 mg, Oral, Q8H PRN Muscle spasms, Starting on Sat06/19/24 at 1431, Until Elle 06/25/24 at 2156, Post-op 1733 (Given - Provider: Emily Briones RN) 1145 (Given - Provider: Rebeca Schroeder RN) Linked Groups Order Group 1: ondansetron ODT (Zofran) tab 4 mgJump to med 4 mg, On Tongue, Q6H PRN Nausea, Vomiting, Starting on 06/19/24 at 1431, Until Elle 06/25/24 at 2156, Post-op Or ondansetron (Zofran) inj 4 mgJump to med 4 mg, IV Push, Q6H PRN Other, May use for nausea or vomiting if patient unable to take oral ondansetron, Starting on Sat06/19/24 at 1431, Until Elle 06/25/24 at 2156, Post-op Group 2: prochlorperazine (Compazine) tab 10 mgJump to med 10 mg, Oral, Q6H PRN Nausea, Vomiting, Starting on Sat06/19/24 at 1431, Until Elle 06/25/24 at 2156, Use as second line therapy if nausea and/or vomiting unrelieved with ondansetron., Post-op Or Prochlorperazine (Compazine) inj 10 mgJump to med 10 mg, IV Push, Q6H PRN Nausea, Vomiting, Starting on Sat06/19/24 at 1431, Until Elle 06/25/24 at 2156, Use as second line therapy if nausea and/or vomiting unrelieved with ondansetron. May use if patient unable to take oral prochlorperazine., Post-op documented in this encounter Advance Directives * Full Code (Latest Code Status on File) Date Activated Date Inactivated Comments 06/19/2024 2:32 PM 06/25/2024 9:56 PM This order r eflects the patients wishes and were consensually agreed upon. Question Answer Comments Discussion of Advance Direct dmitry occurred with: Not Discussed due to patient's condition * Full Code Date Activated Date Inactivated Comments 06/19/2024 10:00 AM 06/19/2024 2:32 PM This order reflects the patients wishes and were consensually agreed upon. Question Answer Comments Discussion of Advance Direct dmitry occurred with: Not Discussed due to patient's condition * Full Code Date Activated Date Inactivated Comments 08/31/2022 8:00 AM 08/31/2022 1:58 PM This order r eflects the patients wishes and were consensually agreed upon. Question Answer Comments Discussion of Advance Directives occurred with: Patient * Full Code Date Activated Date Inactivated Comments 02/05/2020 10:44 AM 02/06/2020 4:10 PM This order reflects the patients wishes and were consensually agreed upon. * Full Code Date Activated Date Inactivated Comments 02/05/2020 6:12 AM 02/05/2020 10:44 AM This order reflects the patients wishes and were consensually agreed upon. Care Teams Veterinary Technician Assistant Relationship Specialty Start Date End Date Sheryl Parisi DO [address] [place] [id number] PCP - General Family Medicine 05/22/24 documented as of this encounter
[2024-06-26] MEDS: MAGNESIUM SULFATE / D5W 1 GM/100 ML BAG IV SCH (12:48)
--- OUTSIDE RECORDS SUMMARY | 2024-06-26 12:48 | External Medical Summary | Summary of Care ---
Author Name Unknown Organization [facility] Address [address] [facility] [place] [place] [address] Phone [phone] Care Team Providers Care Client Advocate Name Role Phone Elida Lance DO Primary Care Provider [phone] Encounter Details Date Type Department Care Team (Late st Contact Info) Description 06/24/2024 Patient Reported Data Patient Survey OBERD Allergies Active Allergy Reactions Criticality Noted Date Comments Nsaids 02/01/2020 Hx gastric bypass Other Allergy (See Comments) Rash Medium 11/27/2012 Dermabond prineo Penicillins 10/04/1999 Rash, last dose was in her 20's Has safely tolerated ancef before Sulfa Antibiotics 10/04/1999 Rash in her early 20's documented as of this encounter (statuses as of 06/24/2024) Medications MULTIVITAMINS PO CAPS Take 1 Capsule by mouth every evening. Suspended [facility] IRON 45 MG PO TABS Take 1 Tablet by mouth in the morning. Suspended Pantoprazole Sodium 40 MG Oral Tablet Delayed Release (Protonix)Indica tions:Acid reflux TAKE ONE TABLET BY MOUTH TWICE A DAY 30 MINUTES BEFORE MEALS; DO NOT CRUSH, CUT OR CHEW 180 Tablet 2 01/29/20 Suspended Additional Information Patient taking differently: 40 mg Oral Daily(AM), Reported on 06/19/2024 Hair Skin & Nails Advanced Oral Tablet Take 1 Tablet by mouth daily. Suspended Lisinopril 2.5 MG Oral Tablet (Prinivil)Indica tions:HTN, goal below 140/90 Take 1/2 tablet by mouth daily 45 Tablet 3 5 1:13 PM EST 07/10/19 24 Suspended LORazepam 0.5 MG Oral Tablet (Ativan) Take 1 Tablet by mouth as needed for Anxiety. 15 Tablet 2 4 8:50 AM EDT 07/17/19 24 Suspended Additional Information Patient taking differently: 0.5 TabletOral PRN, Anxiety, Reported on 06/19/2024 traZODone HCl 150 MG Oral Tablet (Desyrel) Take 1 Tablet by mouth at bedtime. 90 Tablet 1 5 1:37 PM EST 01/14/20 24 Suspended Metoprolol Tartrate 25 MG Oral Tablet (Lopressor)Indic ations:HTN, goal below 140/90 TAKE ONE-HALF TABLET BY MOUTH IN THE MORNING AND ONE-HALF TABLET BEFORE BEDTIME 90 Tablet 2 5 7:15 AM EST 01/26/20 24 Suspended Alendronate Sodium 70 MG Oral Tablet (Fosamax)Indicat ions:Osteoporosi s without current pathological fracture, unspecified osteoporosis type Take 1 Tablet by mouth once a week. 12 Tablet 3 5 2:24 PM EDT 02/27/20 24 Suspended Trintellix 20 MG Oral Tablet (Vortioxetine HBr) Take 1 Tablet by mouth in the morning. 90 Tablet 1 5 1:41 PM EDT 03/12/19 25 Suspended buPROPion HCl 100 MG Oral Tablet (Wellbutrin) Take 1 Tablet by mouth in the morning and 1 Tablet before bedtime. 60 Tablet 2 5 11:26 AM EST 03/16/19 25 Suspended Vitamin D-[address] 25 MCG (1000 UT) Oral Tablet (Cholecalciferol ) Take 1 Tablet by mouth every evening. Suspended AZO Cranberry 250-30 MG Oral Tablet Take 1 Tablet by mouth daily. Suspended Calcium Citrate-Vitamin D 500-10 MG-MCG Oral Tablet Chewable Take 1 Tablet by mouth 2 times a day. Suspended Continuation of patient use of medical marijuana is approved Use as directed. Suspended Biofreeze Roll-On 4 % External Gel (Menthol (Topical Analgesic)) Apply topically to affected area. Apply topically to affected areas as needed Suspended Dry Eye Relief Drops 0.2-0.2-1 % Ophthalmic Solution (Glycerin-Hyprom ellose-PEG 400) Instill 1 Drop into eye as needed for Dry eyes. Suspended Potassium Chloride Erin ER 10 MEQ Oral Tablet Extended ReleaseIndicatio ns:Hypopotassemi a TAKE ONE TABLET BY MOUTH EVERY DAY 100 Tablet 1 5 6:22 AM EDT 05/12/19 25 026 Suspended oxyBUTYnin Chloride ER 15 MG Oral Tablet Extended Release 24 Hour (Ditropan XL)Indications:U rinary urgency,Urge incontinence of urine Take 2 Tablets by mouth in the morning. 180 Tablet 3 5 2:49 PM EDT 05/20/19 25 Suspended Metoclopramide HCl 5 MG Oral Tablet (Reglan) Take 1 Tablet by mouth every 4 hours as needed for Nausea. 20 Tablet 5 2:24 PM EDT 05/22/19 25 Suspended Chlorhexidine Gluconate 4 % External Solution (Hibiclens) Wash with daily for 5 days prior to surgery. 120 mL 06/04/19 25 Suspended Mupirocin 2 % External Ointment (Bactroban) Apply to each nostril two times per day for the 5 days prior to surgery. 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 (Household - for ages [...] on file documented as of this encounter Functional Status * Are you [...] Krystle Schroeder RN documented in this encounter Plan of Treatment Upcoming Encounters Date Type Department Care Team (Late st Contact Info) Description 07/03/2024 1:30 PM EDT Telemedicine Psychology, [address] [address] Roly Miller, [facility] [address] [place] [address] 07/14/2024 2:00 PM EDT Office Visit Orthopaedics Spine Surgery, [place] [address] [place] [address] Elham Gutierrez PA-C [address] [place] [address] 07/15/2024 2:00 PM EDT Telemedicine Psychiatry, [address] [place] [address] Brooke Deluca CRNP [address] [facility] [address] 07/23/2024 1:00 PM EDT Telemedicine Nutrition Services [place] [address] [place] [address] Jasvir Johnson, RDN [address] [place] [address] 10/07/2024 2:40 PM EDT Telemedicine Endocrinology [address] [place] [address] Daniel Franco MD [address] [place] [address] 10/15/2024 3:30 PM EDT Office Visit Neurology [facility] [place] [address] [facility] [place] [address] Mariya Harding PA-C [address] [facility] [place] [address] 10/21/2024 12:10 PM EDT Office Visit Family Practice, [place] [address] [facility] [place] [address] Elida Lance DO [address] [facility] [place] [address] 02/03/2026 2:20 PM EST Office Visit Dermatology, [place] [address] [facility] [place] [address] Yessi Morton PA-C [address] [place] [address] [place] [address] Health Maintenance Due Date Last Done Comments Fecal Occult Blood Test 2006 Sigmoidoscopy 2006 Mammogram 08/09/2017 08/09/2016, 06/09/2015, 08/05/2014, Additional history exists Pneumococcal Vaccine: 50+ Years (3 of 3 - PCV20 or PCV21) 07/09/2021 07/09/2016, 08/21/2013 Colonoscopy 01/14/2022 01/15/2012, 01/15/2012 COVID-19 Vaccine (3 - season) 2023 12/08/2020, 11/17/2020 Albumin/Creatinine Ratio 03/21/2024 024, 02/03/2019, 09/05/2017, Additional history exists CKD PHOS USE SMARTSET 44601 10/17/202410/02, 03/16/2022, 02/09/2021, Additional history exists GFR 12/22/2024 06/22/2024, 06/03, 06/20/2024, Additional history exists Cologuard 04/04/2025 04/04/2022, 03/05, 03/27/2022 Colorectal Cancer Screening 04/04/2025 Depression Monitoring 05/20/2025 05/20/2024 , 01/02/2024, 12/26/2023 CKD HGB USE SMARTSET 59914 06/22/202506/22, 06/21/2024, 06/20/2024, Additional history exists Diabetes [...] this encounter Medical Devices Implanted Type Area Principal Process Engineer Device Identifier Shelf Expiration Date Model / Serial / Lot Graft Infuse Bone Sm [id number] - [id number] Implanted:Qt y: 1 on 02/22/2012 at OR [facility] N/A: Spine Lumbar MEDTRONIC : NEUROLOGIC PAIN 08/01/2014 [id number] / / [id number] Screw 6x45 Poly Si [id number] - [id number] Implanted:Qt y: 2 on 02/22/2012 at OR [facility] N/A: Spine Lumbar JNJ : ETHICON CARDIOVATIONS [id number] / / Screw 7x35 Poly Si [id number] - [id number] Implanted:Qt y: 2 on 02/22/2012 at OR [facility] N/A: Spine Lumbar JNJ : ETHICON CARDIOVATIONS [id number] / / Asif 5.5x55 Ti Prbnt [id number] - [id number] Implanted:Qt y: 2 on 02/22/2012 at OR [facility] N/A: Spine Lumbar JNJ : DEPUY SPINE [id number] / / Screw Set Sng Inner [id number] - [id number] Implanted:Qt y: 4 on 02/22/2012 at OR [facility] N/A: Spine Lumbar JNJ : DEPUY SPINE [id number] / / Cage 28x8 Leopard [id number] - [id number] Implanted:Qt y: 1 on 02/22/2012 at OR [facility] N/A: Spine Lumbar JNJ : ETHICON CARDIOVATIONS [id number] / / Implant Brst Mod Cls Pro 360cc - [id number] Implanted:Qt y: 1 on 11/12/2012 at OR [facility] Right: Breast MENTOR KRISSY 09/11/2017 [id number] / [id number] / [id number] Implant Brst Mod Cls Pro 360cc - [id number] Implanted:Qt y: 1 on 11/12/2012 at OR [facility] Left: Breast MENTOR KRISSY 08/12/2017 350-0560 / [id number] / [id number] 4.0 X 14 Variable Self Starting Screw Implanted:Qt y: 4 on 02/05/2020 by Luis Eduardo Ross MD at OR [facility] N/A: Spine Cervical KWADWO [id number] / / 1 Level 20mm [place] Plate Implanted:Qt y: 1 on 02/05/2020 by Luis Eduardo Ross MD at OR [facility] N/A: Spine Cervical KWADWO [id number] / / [id number] Alcutian Implanted:Qt y: 1 on 02/05/2020 by Luis Eduardo Ross MD at OR [facility] N/A: Spine Cervical KWADWO [id number] / / Description:alctuian cage 2.5cc Vitoss Bimodal Foam Pack Implanted:Qt y: 1 on 02/05/2020 by Luis Eduardo Ross MD at OR [facility] N/A: Spine Cervical KWADWO [id number] 11/29/2020 0079-6079 / [id number] / [id number] Sling Desara One - [id number] Implanted:Qt y: 1 on 08/31/2022 by Chico Perry MD at OR [facility] N/A: Vagina [employer] 08/10/2023 [id number] / / [id number] Bone Mtrx Vivigen Formble 10cc - [id number] - [id number] Implanted:Qt y: 1 on 06/19/2024 by Joseph Giordano MD at OR [facility] N/A: Spine Lumbar LIFENET 04/29/2025 BL-1600-003 / [id number] / [id number] Implant Graft Bone Ifact 2.5cc - [id number] Implanted:Qt y: 1 on 06/19/2024 by Joseph Giordano MD at OR [facility] Spine Lumbar [employer] [id number] 04/03/2026 700-025 / / [id number] Eit/ Plif 13mm 12 Degree 22/ Implanted:Qt y: 1 on 06/19/2024 by Joseph Giordano MD at OR [facility] N/A: Spine Lumbar 08/31/2025 [id number] / / [id number] Duragen Plus 1x3 Dp 1013 Min5 - [id number] - [id number] Implanted:Qt y: 1 on 06/19/2024 by Joseph Giordano MD at OR [facility] N/A: Spine Lumbar [employer] KRISSY [id number] 12/01/2026 BS3623 / [id number] / [id number] Screw 6x45 Poly Si [id number] - [id number] Implanted:Qt y: 2 on 06/19/2024 by Joseph Giordano MD at OR [facility] N/A: Spine Lumbar JNJ : ETHICON CARDIOVATIONS [id number] / / Screw 7x45 Poly Si [id number] - [id number] Implanted:Qt y: 2 on 06/19/2024 by Joseph Giordano MD at OR [facility] N/A: Spine Lumbar JNJ : ETHICON CARDIOVATIONS [id number] / / Pre Lordosed Asif W Line 45mm - [id number] Implanted:Qt y: 2 on 06/19/2024 by Joseph Giordano MD at OR [facility] N/A: Spine Lumbar JNJ : DEPUY SPINE [id number] / / Screw Set Sng Inner [id number] - [id number] Implanted:Qt y: 4 on 06/19/2024 by Joseph Giordano MD at OR [facility] N/A: Spine Lumbar JNJ : ETHICON CARDIOVATIONS [id number] / / Expedium Ti Sfx 5.5 Lat A6 - [id number] Implanted:Qt y: 1 on 06/19/2024 by Joseph Giordano MD at OR [facility] N/A: Spine Lumbar JNJ : ETHICON CARDIOVATIONS [id number] / / documented as of this encounter Advance Directives * Full Code (Latest Code Status on File) Date Activated Date Inactivated Comments 06/19/2024 2:32 PM This order ref lects the patients wishes and were consensually agreed [...] and were consensually agreed upon. Care Teams Client Advocate Relationship Specialty Start Date End Date Elida Lance DO [address] [place] [address] PCP - General Family Medicine 05/22/24 documented as of this encounter
--- OUTSIDE RECORDS SUMMARY | 2024-06-26 12:48 | External Medical Summary ---
Author Name Unknown Address Unknown Organization K01:[facility] - [address] [place] [address] Laboratory Report Ordering Provider Test Date Status SHIV HERNANDEZ 06/19/2024 11:00:14 Final Observation Date Value Abnormality Reference (Units ) Status ABO 06/19/2024 11:00:14 O Final RH 06/19/2024 11:00:14 Positive Final RED BLOOD CELL ANTIBODY SCREEN 06/19/2024 11:00:14 Negative Final SPECIMEN EXPIRATION DATE 06/19/2024 11:00:14 06/22/2024 23:59 Final Performing Location [facility] - [address] [place] [address]
--- OUTSIDE RECORDS SUMMARY | 2024-06-26 12:48 | External Medical Summary | Summary of Care ---
Author Name Unknown Organization [facility] Address [address] [facility] [place] [address] Phone [phone] Care Team Providers Care Ibm Websphere Portal Developer Name Role Phone Elida Lance DO Primary Care Provider [phone] Encounter Details Date Type Department Care Team [...] disease), lumbar 11/21/19 12 [facility] Confirmation Research Other*[id number] 06/0 11/2009 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 B12 [...] Description 07/03/2024 1:30 PM EDT Telemedicine Psychology, [address] [address] Roly Miller, [facility] [address] [place] [address] 07/14/2024 2:00 PM EDT Office Visit Orthopaedics Spine Surgery, [place] [address] [place] [address] Elham Gutierrez PA-C [address] [place] [address] 07/15/2024 2:00 PM EDT Telemedicine Psychiatry, [address] [place] [address] Brooke Deluca CRNP [address] [facility] [address] 07/23/2024 1:00 PM EDT Telemedicine Nutrition Services [place] [address] [place] [address] Jasvir Johnson, RDN [address] [place] [address] 10/07/2024 2:40 PM EDT Telemedicine Endocrinology [address] [place] [address] Daniel Franco MD [address] [place] [address] 10/15/2024 3:30 PM EDT Office Visit Neurology [facility] [place] [address] [facility] [place] [address] Mariya Harding PA-C [address] [facility] [place] [address] 10/21/2024 12:10 PM EDT Office Visit Family Practice, [place] [address] [facility] [place] [address] Elida Lance DO [address] [facility] [place] [address] 02/03/2026 2:20 PM EST Office Visit Dermatology, [place] [address] [facility] [place] [address] Yessi Morton PA-C [address] [place] [address] [place] [address] Health Maintenance Due Date Last Done Comments Fecal Occult Blood Test 2006 Sigmoidoscopy 2006 Mammogram 08/09/2017 08/09/2016, 06/09/2015, 08/05/2014, Additional history exists Pneumococcal Vaccine: 50+ Years (3 of 3 - PCV20 or PCV21) 07/09/2021 07/09/2016, 08/21/2013 Colonoscopy 01/14/2022 01/15/2012, 01/15/2012 COVID-19 Vaccine (3 - season) 2023 12/08/2020, 11/17/2020 Albumin/Creatinine Ratio 03/21/2024 024, 02/03/2019, 09/05/2017, Additional history exists CKD PHOS USE SMARTSET 27728 10/17/202410/02, 03/16/2022, 02/09/2021, Additional history exists GFR 12/22/2024 06/22/2024, 06/03, 06/20/2024, Additional history exists Cologuard 04/04/2025 04/04/2022, 03/05, 03/27/2022 Colorectal Cancer Screening 04/04/2025 Depression Monitoring 05/20/2025 05/20/2024 , 01/02/2024, 12/26/2023 CKD HGB USE SMARTSET 58886 06/22/202506/22, 06/21/2024, 06/20/2024, Additional history exists Diabetes [...] this encounter Medical Devices Implanted Type Area Conductor Freight Device Identifier Shelf Expiration Date Model / Serial / Lot Graft Infuse Bone Sm [id number] - [id number] Implanted:Qt y: 1 on 02/22/2012 at OR [facility] N/A: Spine Lumbar [employer] : NEUROLOGIC PAIN 08/01/2014 [id number] / / [id number] Screw 6x45 Poly Si [id number] - [id number] Implanted:Qt y: 2 on 02/22/2012 at OR [facility] N/A: Spine Lumbar JNJ : ETHICON CARDIOVATIONS [id number] / / Screw 7x35 Poly Si [id number] - [id number] Implanted:Qt y: 2 on 02/22/2012 at OR [facility] N/A: Spine Lumbar JNJ : ETHICON CARDIOVATIONS [id number] / / Asif 5.5x55 Ti Prbnt [id number] - [id number] Implanted:Qt y: 2 on 02/22/2012 at OR [facility] N/A: Spine Lumbar JNJ : DEPUY SPINE [id number] / / Screw Set Sng Inner [id number] - [id number] Implanted:Qt y: 4 on 02/22/2012 at OR [facility] N/A: Spine Lumbar JNJ : DEPUY SPINE [id number] / / Cage 28x8 Leopard [id number] - [id number] Implanted:Qt y: 1 on 02/22/2012 at OR [facility] N/A: Spine Lumbar JNJ : ETHICON CARDIOVATIONS [id number] / / Implant Brst Mod Cls Pro 360cc - [id number] Implanted:Qt y: 1 on 11/12/2012 at OR [facility] Right: Breast MENTOR KRISSY 09/11/2017 35060 / [id number] / [id number] Implant Brst Mod Cls Pro 360cc - [id number] Implanted:Qt y: 1 on 11/12/2012 at OR [facility] Left: Breast MENTOR KRISSY 08/12/2017 350-5760 / [id number] / [id number] 4.0 X 14 Variable Self Starting Screw Implanted:Qt y: 4 on 02/05/2020 by Luis Eduardo Ross MD at OR [facility] N/A: Spine Cervical KWADWO [id number] / / 1 Level 20mm [place] View Plate Implanted:Qt y: 1 on 02/05/2020 by Luis Eduardo Ross MD at OR [facility] N/A: Spine Cervical KWADWO [id number] / / [id number] ree Alcutian Implanted:Qt y: 1 on 02/05/2020 by Luis Eduardo Ross MD at OR [facility] N/A: Spine Cervical KWADWO [id number] / / Description:alctuian cage 2.5cc Vitoss Bimodal Foam Pack Implanted:Qt y: 1 on 02/05/2020 by Luis Eduardo Ross MD at OR [facility] N/A: Spine Cervical KWADWO [id number] 11/29/2020 8763-9862 / [id number] / [id number] Sling Desara One - [id number] Implanted:Qt y: 1 on 08/31/2022 by Chico Perry MD at OR [facility] N/A: Vagina [employer] 08/10/2023 [id number] / / [id number] Bone Mtrx Vivigen Formble 10cc - [id number] - [id number] Implanted:Qt y: 1 on 06/19/2024 by Joseph Giordano MD at OR [facility] N/A: Spine Lumbar LIFENET 04/29/2025 BL-1600-003 / [id number] / [id number] Implant Graft Bone Ifact 2.5cc - [id number] Implanted:Qt y: 1 on 06/19/2024 by Joseph Giordano MD at OR [facility] Spine Lumbar [employer] [id number] 04/03/2026 700-025 / / [id number] Eit/ Plif 13mm 12 Degree 22/ Implanted:Qt y: 1 on 06/19/2024 by Joseph Giordano MD at OR [facility] N/A: Spine Lumbar 08/31/2025 [id number] / / [id number] Duragen Plus 1x3 Dp 1013 Min5 - [id number] - [id number] Implanted:Qt y: 1 on 06/19/2024 by Joseph Giordano MD at OR [facility] N/A: Spine Lumbar [employer] KRISSY [id number] 12/01/2026 [id number] / [id number] / [id number] Screw 6x45 Poly Si [id number] - [id number] Implanted:Qt y: 2 on 06/19/2024 by Joseph Giordano MD at OR [facility] N/A: Spine Lumbar JNJ : ETHICON CARDIOVATIONS [id number] / / Screw 7x45 Poly Si [id number] - [id number] Implanted:Qt y: 2 on 06/19/2024 by Joseph Giordano MD at OR [facility] N/A: Spine Lumbar JNJ : ETHICON CARDIOVATIONS [id number] / / Pre Lordosed Asif W Line 45mm - [id number] Implanted:Qt y: 2 on 06/19/2024 by Joseph Giordano MD at OR [facility] N/A: Spine Lumbar JNJ : DEPUY SPINE [id number] / / Screw Set Sng Inner [id number] - [id number] Implanted:Qt y: 4 on 06/19/2024 by Joseph Giordano MD at OR [facility] N/A: Spine Lumbar JNJ : ETHICON CARDIOVATIONS [id number] / / Expedium Ti Sfx 5.5 Lat A6 - [id number] Implanted:Qt y: 1 on 06/19/2024 by Joseph Giordano MD at OR [facility] N/A: Spine Lumbar JNJ : ETHICON CARDIOVATIONS [id number] / / documented as of this encounter [...] and were consensually agreed upon. Care Teams Ibm Websphere Portal Developer Relationship Specialty Start Date End Date Elida Lance DO [address] [address] PCP - General Family Medicine 05/22/24 documented as of this encounter
--- OUTSIDE RECORDS SUMMARY | 2024-06-26 12:48 | External Medical Summary ---
Author Name Unknown Address Unknown Organization K01:[facility] [address] Laboratory Report Ordering Provider Test Date Status CRISTAL WILDE 06/20/2024 06:15:00 Final Observation Date Value Abnormality Reference (Units ) Status WBC, Total 06/20/2024 06:15:00 6.48 4.00-10.80 (K/uL) Final RBC 06/20/2024 06:15:00 2.11 3.85-5.15 (M/uL) Final Hemoglobin 06/20/2024 06:15:00 6.7 Below low normal 12.0-15.3 (g/dL) Final HCT 06/20/2024 06:15:00 20.9 Below low normal 36.0-45.2 (%) Final MCV 06/20/2024 06:15:00 99.1 81.5-97.5 (fL) Final MCH 06/20/2024 06:15:00 31.8 27.0-34.0 (pg) Final MCHC 06/20/2024 06:15:00 32.1 32.0-36.0 (g/dL) Final RDW 06/20/2024 06:15:00 13.6 11.5-15.5 (%) Final Platelets 06/20/2024 06:15:00 133 Below low normal 140-400 (K/uL) Final MPV 06/20/2024 06:15:00 9.4 6.6-11.1 (fL) Final Nucleated erythrocytes/100 leukocytes [Ratio] in Blood by Automated count 06/20/2024 06:15:00 0 <=0 (/100 WBCs) Final Performing Location [facility] [place] [address]
--- OUTSIDE RECORDS SUMMARY | 2024-06-26 12:48 | External Medical Summary ---
Author Name Unknown Address Unknown Organization K01:LABORATORY [facility] [place] - [address] [place] [address] Laboratory Report Ordering Provider Test Date Status CRISTAL WILDE 06/21/2024 05:48:00 Final Observation Date Value Abnormality Reference (Units ) Status BUN 06/21/2024 05:48:00 7 6-20 (mg/dL) Final Creatinine 06/21/2024 05:48:00 0.8 0.5-1.0 (mg/dL) Final Glomerular filtration rate/1.73 sq M.predicted [Volume Rate/Area] in Serum, Plasma or Blood by Creatinine-based formula (CKD-EPI) 06/21/2024 05:48:00 85 >=60 (mL/min) Final eGFR is calculated based on the CKD-EPI 2020 equation. Sodium 06/21/2024 05:48:00 136 135-146 (m mol/L) Final Potassium 06/21/2024 05:48:00 4.4 3.5-5.1 (m mol/L) Final Cl 06/21/2024 05:48:00 108 Above high normal 98 -107 (mmol/L) Final CO2 06/21/2024 05:48:00 20 Below low normal 22- 32 (mmol/L) Final Anion gap 06/21/2024 05:48:00 8 7-15 (mmol /L) Final Glucose 06/21/2024 05:48:00 101 70-120 (mg /dL) Final Calcium 06/21/2024 05:48:00 6.7 Below low normal 8.4 -10.2 (mg/dL) Final Performing Location LABOR[facility]ORY [facility] [place] - [address] [place] [address]
--- OUTSIDE RECORDS SUMMARY | 2024-06-26 12:48 | External Medical Summary | Summary of Care ---
Author Name Unknown Organization [facility] Address [address] [facility] [place] [address] Phone [phone] Care Team Providers Care Foot Tender Name Role Phone Elida Lance DO Primary Care Provider [phone] Encounter Details Date Type Department Care Team [...] disease), lumbar 11/21/19 12 [facility] Confirmation Research Other*[id number] 06/0 11/2009 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 B12 [...] Description 07/03/2024 1:30 PM EDT Telemedicine Psychology, [address] [address] Roly Miller, [facility] [address] [place] [address] 07/14/2024 2:00 PM EDT Office Visit Orthopaedics Spine Surgery, [place] [address] [place] [phone] Elham Gutierrez PA-C [address] [place] [address] 07/15/2024 2:00 PM EDT Telemedicine Psychiatry, [address] [place] [address] Brooke Deluca CRNP [address] [facility] [address] 07/23/2024 1:00 PM EDT Telemedicine Nutrition Services [place] [address] [place] [address] Jasvir Johnson, RDN [address] [place] [address] 10/07/2024 2:40 PM EDT Telemedicine Endocrinology [address] [place] [address] Daniel Franco MD [address] [place] [address] 10/15/2024 3:30 PM EDT Office Visit Neurology [facility] [place] [address] [facility] [place] [address] Mariya Harding PA-C [facility] [place] [address] 10/21/2024 12:10 PM EDT Office Visit Family Practice, [place] [address] [facility] [place] [address] Elida Lance DO [address] [facility] [place] [address] 02/03/2026 2:20 PM EST Office Visit [facility]atology, [place] [address] [facility] [place] [address] Yessi Morton PA-C [address] [place] [address] [place] [address] Health Maintenance Due Date Last Done Comments Fecal Occult Blood Test 2006 Sigmoidoscopy 2006 Mammogram 08/09/2017 08/09/2016, 06/09/2015, 08/05/2014, Additional history exists Pneumococcal Vaccine: 50+ Years (3 of 3 - PCV20 or PCV21) 07/09/2021 07/09/2016, 08/21/2013 Colonoscopy 01/14/2022 01/15/2012, 01/15/2012 COVID-19 Vaccine (3 - season) 2023 12/08/2020, 11/17/2020 Albumin/Creatinine Ratio 03/21/2024 024, 02/03/2019, 09/05/2017, Additional history exists CKD PHOS USE SMARTSET 15879 10/17/202410/02, 03/16/2022, 02/09/2021, Additional history exists GFR 12/22/2024 06/22/2024, 06/03, 06/20/2024, Additional history exists Cologuard 04/04/2025 04/04/2022, 03/05, 03/27/2022 Colorectal Cancer Screening 04/04/2025 Depression Monitoring 05/20/2025 05/20/2024 , 01/02/2024, 12/26/2023 CKD HGB USE SMARTSET 04226 06/22/202506/22, 06/21/2024, 06/20/2024, Additional history exists Diabetes [...] this encounter Medical Devices Implanted Type Area Ceramics Technician Device Identifier Shelf Expiration Date Model / Serial / Lot Graft Infuse Bone Sm [id number] - [id number] Implanted:Qt y: 1 on 02/22/2012 at OR [facility] [place] N/A: Spine Lumbar MEDTRONIC : NEUROLOGIC PAIN 08/01/2014 [id number] / / [id number] Screw 6x45 Poly Si [id number] - [id number] Implanted:Qt y: 2 on 02/22/2012 at OR [facility] [place] N/A: Spine Lumbar JNJ : ETHICON CARDIOVATIONS [id number] / / Screw 7x35 Poly Si [id number] - [id number] Implanted:Qt y: 2 on 02/22/2012 at OR [facility] [place] N/A: Spine Lumbar JNJ : ETHICON CARDIOVATIONS [id number] / / Asif 5.5x55 Ti Prbnt [id number] - [id number] Implanted:Qt y: 2 on 02/22/2012 at OR [facility] [place] N/A: Spine Lumbar JNJ : DEPUY SPINE [id number] / / Screw Set Sng Inner [id number] - [id number] Implanted:Qt y: 4 on 02/22/2012 at OR [facility] [place] N/A: Spine Lumbar JNJ : DEPUY SPINE [id number] / / Cage 28x8 Leopard [id number] - [id number] Implanted:Qt y: 1 on 02/22/2012 at OR [facility] [place] N/A: Spine Lumbar JNJ : ETHICON CARDIOVATIONS [id number] / / Implant Brst Mod Cls Pro 360cc - [id number] Implanted:Qt y: 1 on 11/12/2012 at OR [facility] [place] Right: Breast MENTOR KRISSY 09/11/2017 [id number] / [id number] / [id number] Implant Brst Mod Cls Pro 360cc - [id number] Implanted:Qt y: 1 on 11/12/2012 at OR [facility] [place] Left: Breast MENTOR KRISSY 08/12/2017 350-0860 / [id number] / [id number] 4.0 X 14 Variable Self Starting Screw Implanted:Qt y: 4 on 02/05/2020 by Luis Eduardo Ross MD at OR [facility] N/A: Spine Cervical KWADWO [id number] / / 1 Level 20mm Van Zandt View Plate Implanted:Qt y: 1 on 02/05/2020 by Luis Eduardo Ross MD at OR [facility] N/A: Spine Cervical KWADWO [id number] / / [id number] Alcutian Implanted:Qt y: 1 on 02/05/2020 by Luis Eduardo Ross MD at OR [facility] N/A: Spine Cervical KWADWO [id number] / / Description:alctuian cage 2.5cc Vitoss Bimodal Foam Pack Implanted:Qt y: 1 on 02/05/2020 by Luis Eduardo Ross MD at OR [facility] N/A: Spine Cervical KWADWO [id number] 11/29/2020 2075-6857 / [id number] / [id number] Sling Desara One - [id number] Implanted:Qt y: 1 on 08/31/2022 by Chico Perry MD at OR [facility] N/A: Vagina [employer] 08/10/2023 LEATHA-ZC1985 / / [id number] Bone Mtrx Vivigen Formble 10cc - [id number] - [id number] Implanted:Qt y: 1 on 06/19/2024 by Joseph Giordano MD at OR [facility] [place] N/A: Spine Lumbar LIFENET 04/29/2025 BL-1600-003 / [id number] / [id number] Implant Graft Bone Ifact 2.5cc - [id number] Implanted:Qt y: 1 on 06/19/2024 by Joseph Giordano MD at OR [facility] [place] [facility] Spine Lumbar [employer] [id number] 04/03/2026 700-025 / / [id number] Eit/ Plif 13mm 12 Degree 22/ Implanted:Qt y: 1 on 06/19/2024 by Joseph Giordano MD at OR [facility] [place] N/A: Spine Lumbar 08/31/2025 [id number] / / [id number] Duragen Plus 1x3 Dp 1013 Min5 - [id number] - [id number] Implanted:Qt y: 1 on 06/19/2024 by Joseph Giordano MD at OR [facility] [place] N/A: Spine Lumbar [employer] KRISSY [id number] 12/01/2026 JC1333 / [id number] / [id number] Screw 6x45 Poly Si [id number] - [id number] Implanted:Qt y: 2 on 06/19/2024 by Joseph Giordano MD at OR [facility] [place] N/A: Spine Lumbar JNJ : ETHICON CARDIOVATIONS [id number] / / Screw 7x45 Poly Si [id number] - [id number] Implanted:Qt y: 2 on 06/19/2024 by Joseph Giordano MD at OR [facility] [place] N/A: Spine Lumbar JNJ : ETHICON CARDIOVATIONS [id number] / / Pre Lordosed Asif W Line 45mm - [id number] Implanted:Qt y: 2 on 06/19/2024 by Joseph Giordano MD at OR [facility] [place] N/A: Spine Lumbar JNJ : DEPUY SPINE [id number] / / Screw Set Sng Inner [id number] - [id number] Implanted:Qt y: 4 on 06/19/2024 by Joseph Giordano MD at OR [facility] [place] N/A: Spine Lumbar JNJ : ETHICON CARDIOVATIONS [id number] / / Expedium Ti Sfx 5.5 Lat A6 - [id number] Implanted:Qt y: 1 on 06/19/2024 by Joseph Giordano MD at OR [facility] [place] N/A: Spine Lumbar JNJ : ETHICON CARDIOVATIONS [id number] / / documented as of this encounter [...] and were consensually agreed upon. Care Teams Foot Tender Relationship Specialty Start Date End Date Elida Lance DO [address] [place] [address] PCP - General Family Medicine 05/22/24 documented as of this encounter
--- OUTSIDE RECORDS SUMMARY | 2024-06-26 12:48 | External Medical Summary ---
Author Name Unknown Address Unknown Organization K01:[facility] [place] - [address] [place] [address] Laboratory Report Ordering Provider Test Date Status CRISTAL WILDE 06/22/2024 06:02:00 Final Observation Date Value Abnormality Reference (Units ) Status BUN 06/22/2024 06:02:00 6 6-20 (mg/dL) Final Creatinine 06/22/2024 06:02:00 0.8 0.5-1.0 (mg/dL) Final Glomerular filtration rate/1.73 sq M.predicted [Volume Rate/Area] in Serum, Plasma or Blood by Creatinine-based formula (CKD-EPI) 06/22/2024 06:02:00 82 >=60 (mL/min) Final eGFR is calculated based on the CKD-EPI 2020 equation. Sodium 06/22/2024 06:02:00 139 135-146 (m mol/L) Final Potassium 06/22/2024 06:02:00 4.8 3.5-5.1 (m mol/L) Final Cl 06/22/2024 06:02:00 109 Above high normal 98 -107 (mmol/L) Final CO2 06/22/2024 06:02:00 20 Below low normal 22- 32 (mmol/L) Final Anion gap 06/22/2024 06:02:00 10 7-15 (mmol /L) Final Glucose 06/22/2024 06:02:00 79 70-120 (mg /dL) Final Calcium 06/22/2024 06:02:00 7.8 Below low normal 8.4 -10.2 (mg/dL) Final Performing Location [facility] [place] - [address] [place] [address]
--- OUTSIDE RECORDS SUMMARY | 2024-06-26 12:48 | External Medical Summary | Summary of Care ---
Author Name Unknown Organization [facility] Address [address] [place] [address] Phone [phone] Care Team Providers Care Band Saw Operator Cake Cutting Name Role Phone Elida Lance DO Primary Care Provider [phone] Reason for Visit * Reason Onset Date Comments Mycode Lab Reorder 06/23/2024 Encounter Details Date Type Department Care Team (Late st Contact Info) Description 06/23/2024 Orders Only Outcomes Research Department [address] [place] [address] Sierra Soria CHRA MyCode Research Other*[id number]* Allergies Active Allergy Reactions Criticality Noted Date Comments Nsaids 02/01/2020 Hx gastric bypass Other Allergy (See Comments) Rash Medium 11/27/2012 Dermabond prineo Penicillins 10/04/1999 Rash, last dose was in her 20's Has safely tolerated ancef before Sulfa Antibiotics 10/04/1999 Rash in her early 20's documented as of this encounter (statuses as of 06/23/2024) Medications MULTIVITAMINS PO CAPS Take 1 Capsule by mouth every evening. Suspended [facility] IRON 45 MG PO TABS Take 1 Tablet by mouth in the morning. Suspended Pantoprazole Sodium 40 MG Oral Tablet Delayed Release (Protonix)Indica tions:Acid reflux TAKE ONE TABLET BY MOUTH TWICE A DAY 30 MINUTES BEFORE MEALS; DO NOT CRUSH, CUT OR CHEW 180 Tablet 2 01/29/20 23 Suspended Additional Information Patient taking differently: 41 [...] as of this encounter (statuses as of 06/23/2024) Active Problems Problem Noted Date Diagnosed Date Major depressive disorder, recurrent, in partial remission 12/27/2021 Generalized anxiety disorder 12/27/2021 S/P cervical spinal fusion 02/05/2020 DDD (degenerative disc disease), cervical 2017 Major depressive disorder, recurrent, moderate 0 06/14/2017 Memory changes 01/01/2017 Benign hypertension with CKD (chronic kidney disease) stage III 12/26/2016 Controlled substance agreement signed 04/08/2015 DDD (degenerative disc disease), lumbar 11/21/19 12 [place] Confirmation Research Other*[id number] 11/2009 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 B12 malabsorption s/p gastric bypass 07/14/2002 Allergic rhinitis 02/12/2002 Dyslipidemia, goal LDL below 130 12/04/2001 Chronic rhinitis HTN, goal below 140/90 Spinal stenosis, lumbar Spondylolisthesis documented as of this encounter (statuses as of 06/23/2024) Resolved Problems Problem Noted Date Diagnosed Date [...] as of this encounter (statuses as of 06/23/2024) Immunizations Name Administration Dates Next Due COVID-19 [...] Krystle Schroeder RN documented in this encounter Progress Notes * Sierra Soria CHRA - 06/23/2024 8:18 AM EDT MyCode lab reordered. documented in this encounter Plan of Treatment Upcoming Encounters Date Type Department Care Team (Late st Contact Info) Description 07/03/2024 1:30 PM EDT Telemedicine Psychology, [address] [place] [address] Roly Miller, ROAD FREIGHT CONDUCTOR [address] [place] [address] 07/14/2024 11:30 AM EDT Office Visit Orthopaedics Spine Surgery, [place] [address] [place] [address] Suzette Alcala PA-C [address] [place] [address] 07/15/2024 2:00 PM EDT Telemedicine Psychiatry, [place] [address] [place] [address] Brooke Deluca CRNP [address] [place] [address] 07/23/2024 1:00 PM EDT Telemedicine Nutrition Services [address] [place] [address] Jasvir Johnson, RDN [address] [place] [address] 10/07/2024 2:40 PM EDT Telemedicine Endocrinology [address] [place] [address] Daniel Franco MD [address] [place] [address] 10/15/2024 3:30 PM EDT Office Visit Neurology [facility] [place] [address] [place] [address] Mariya Harding PA-C [address] [place] [address] 10/21/2024 12:10 PM EDT Office Visit [facility] [address] [facility] [place] [address] Elida Lance DO [address] [place] [address] 02/03/2026 2:20 PM EST Office Visit DermatologyRoyal [place] [phone] Yessi Morton, JENNIFER [address] [place] [address] [place] [address] Scheduled Orders Name Type Priority Associated Diagnoses Orde r Schedule MYCODE SUBSEQUENT ADULT Lab Routine MyCode Research Other*[id number] Every 6 Months for 2 Occurrences starting 06/23/2024 until 07/13/2025 Health Maintenance Due Date Last Done Comments Fecal Occult Blood Test 2006 Sigmoidoscopy 2006 Mammogram 08/09/2017 08/09/2016, 09/2015, 08/05/2014, Additional history exists Pneumococcal Vaccine: 50+ Years (3 of 3 - PCV20 or PCV21) 07/09/2021 07/09/2016, 08/21/2013 Colonoscopy 01/14/2022 01/15/2012, 01/15/2012 COVID-19 Vaccine ( season) 2023 12/08/2020, 11/17/2020 Albumin/Creatinine Ratio 03/21/2024 024, 02/03/2019, 09/05/2017, Additional history exists CKD PHOS USE SMARTSET 72363 10/17/2024 0808/2023, 03/16/2022, 02/09/2021, Additional history exists GFR 12/22/2024 06/22/2024, 06/03, 06/20/2024, Additional history exists Cologuard 04/04/2025 04/04/2022, 03/05, 03/27/2022 Colorectal Cancer Screening 04/04/2025 Depression Monitoring 05/20/2025 05/20/2024 , 01/02/2024, 12/26/2023 CKD HGB USE SMARTSET 09668 06/22/202506/22, 06/21/2024, 06/20/2024, Additional history exists Diabetes Screening 06/23/2027 06/22/2024, 0 06/21/2024, 06/20/2024, Additional history exists Lipid Panel 09/12/2028 09/13/2023, 08, 02/03/2019, Additional history exists DTap/Tdap Vaccines (3 [...] this encounter Medical Devices Implanted Type Area Joy Loading Machine Operator Device Identifier Shelf Expiration Date Model / Serial / Lot Graft Infuse Bone Sm [id number] - [id number] Implanted:Qt y: 1 on 02/22/2012 at OR [facility] [place] N/A: Spine Lumbar MED[employer] : NEUROLOGIC PAIN 08/01/2014 [id number] / / [id number] Screw 6x45 Poly Si [id number] - [id number] Implanted:Qt y: 2 on 02/22/2012 at OR [facility] [place] N/A: Spine Lumbar JNJ : ETHICON CARDIOVATIONS [id number] / / Screw 7x35 Poly Si [id number] - [id number] Implanted:Qt y: 2 on 02/22/2012 at OR [facility] [place] N/A: Spine Lumbar JNJ : ETHICON CARDIOVATIONS [id number] / / Asif 5.5x55 Ti Prbnt [id number] - [id number] Implanted:Qt y: 2 on 02/22/2012 at OR [facility] [place] N/A: Spine Lumbar JNJ : DEPUY SPINE [id number] / / Screw Set Sng Inner [id number] - [id number] Implanted:Qt y: 4 on 02/22/2012 at OR [facility] [place] N/A: Spine Lumbar JNJ : DEPUY SPINE [id number] / / Cage 28x8 Leopard [id number] - [id number] Implanted:Qt y: 1 on 02/22/2012 at OR [facility] [place] N/A: Spine Lumbar JNJ : ETHICON CARDIOVATIONS [id number] / / Implant Brst Mod Cls Pro 360cc - [id number] Implanted:Qt y: 1 on 11/12/2012 at OR [facility] [place] Right: Breast MENTOR KRISSY 09/11/2017 350-7360 / [id number] / [id number] Implant Brst Mod Cls Pro 360cc - [id number] Implanted:Qt y: 1 on 11/12/2012 at OR [facility] [place] Left: Breast MENTOR KRISSY 08/12/2017 350-7360 / [id number] / [id number] 4.0 X 14 Variable Self Starting Screw Implanted:Qt y: 4 on 02/05/2020 by Luis Eduardo Ross MD at OR [facility] N/A: Spine Cervical KWADWO [id number] A / / 1 Level 20mm Danese View Plate Implanted:Qt y: 1 on 02/05/2020 by Luis Eduardo Ross MD at OR [facility] N/A: Spine Cervical KWADWO [id number] / / [id number] Alcutian Implanted:Qt y: 1 on 02/05/2020 by Luis Eduardo Ross MD at OR [facility] N/A: Spine Cervical KWADWO [id number] / / Description:alctuian cage 2.5cc Vitoss Bimodal Foam Pack Implanted:Qt y: 1 on 02/05/2020 by Luis Eduardo Ross MD at OR [facility] N/A: Spine Cervical KWADWO [id number] 11/29/202021017783-2786 / [id number] / [id number] Tishing Andrzej One - [id number] Implanted:Qt y: 1 on 08/31/2022 by Chico Perry MD at OR [facility] N/A: Vagina [employer] 08/10/2023 LEATHA-EX3246 / / [id number] Bone Mtrx Vivigen Formble 10cc - [id number] - [id number] Implanted:Qt y: 1 on 06/19/2024 by Joseph Giordano MD at OR [facility] [place] N/A: Spine Lumbar LIFENET 04/29/2025 BL-1600-003 / [id number] / [id number] Implant Graft Bone Ifact 2.5cc - [id number] Implanted:Qt y: 1 on 06/19/2024 by Joseph Giordano MD at OR [facility] [place] Spine Lumbar [employer] [id number] 04/03/2026 700-025 / / [id number] Eit/ Plif 13mm 12 Degree 23/11 Implanted:Qt y: 1 on 06/19/2024 by Joseph Giordano MD at OR [facility] [place] N/A: Spine Lumbar 08/31/2025 ADY92278 / / [id number] Duragen Plus 1x3 Dp 1013 Min5 - [id number] - [id number] Implanted:Qt y: 1 on 06/19/2024 by Joseph Giordano MD at OR [facility] [place] N/A: Spine Lumbar [employer] KRISSY [id number] 12/01/2026 KG3769 / [id number] / [id number] Screw 6x45 Poly Si [id number] - [id number] Implanted:Qt y: 2 on 06/19/2024 by Joseph Giordano MD at OR [facility] [place] N/A: Spine Lumbar JNJ : ETHICON CARDIOVATIONS [id number] / / Screw 7x45 Poly Si [id number] - [id number] Implanted:Qt y: 2 on 06/19/2024 by Joseph Giordano MD at OR [facility] [place] N/A: Spine Lumbar JNJ : ETHICON CARDIOVATIONS [id number] / / Pre Lordosed Asif W Line 45mm - [id number] Implanted:Qt y: 2 on 06/19/2024 by Joseph Giordano MD at OR [facility] [place] N/A: Spine Lumbar JNJ : DEPUY SPINE [id number] / / Screw Set Sng Inner [id number] - [id number] Implanted:Qt y: 4 on 06/19/2024 by Joseph Giordano MD at OR [facility] [place] N/A: Spine Lumbar JNJ : ETHICON CARDIOVATIONS [id number] / / Expedium Ti Sfx 5.5 Lat A6 - [id number] Implanted:Qt y: 1 on 06/19/2024 by Joseph Giordano MD at OR [facility] [place] N/A: Spine Lumbar JNJ : ETHICON CARDIOVATIONS [id number] / / documented as of this encounter Visit Diagnoses Diagnosis MyCode Research Other*[id number]- Primary documented in this encounter Advance Directives * [...] and were consensually agreed upon. Care Teams Band Saw Operator Cake Cutting Relationship Specialty Start Date End Date Elida Lance DO [address] [place] [address] PCP - General Family Medicine 05/22/24 documented as of this encounter
--- OUTSIDE RECORDS SUMMARY | 2024-06-26 12:48 | External Medical Summary | Summary of Care ---
Author Name Unknown Organization [facility] Address [address] [facility] [place] [address] Phone [phone] Care Team Providers Care Oracle Bpm Developer Name Role Phone Elida Lance DO Primary Care Provider Encounter Details Date Type Department Care Team (Late st Contact Info) Description 06/12/2024 Patient Reported Data Patient Survey Ortho FORCE Allergies Active Allergy Reactions Criticality Noted Date Comments Nsaids 02/01/2020 Hx gastric bypass Other Allergy (See Comments) Rash Medium 013 Dermabond prineo Penicillins 10/04/1999 Rash, last dose was in her 20's Sulfa Antibiotics 10/04/1999 Rash in her early 20's documented as of this encounter (statuses as of 06/12/2024) Medications MULTIVITAMINS PO CAPS Take 1 Capsule by mouth every evening. Active [facility] IRON 45 MG PO TABS Take 1 Tablet by mouth in the morning. Active Pantoprazole Sodium 40 MG Oral Tablet Delayed Release (Protonix)Indica tions:Acid reflux TAKE ONE TABLET BY MOUTH TWICE A DAY 30 MINUTES BEFORE MEALS; DO NOT CRUSH, CUT OR CHEW 180 Tablet 2 3 Active Additional Information Patient taking differently: 40 mg Oral Daily(AM), Reported on 06/02/2024 Hair Skin & Nails Advanced Oral Tablet Take 1 Tablet by mouth daily. Active Lisinopril 2.5 MG Oral Tablet (Prinivil)Indica tions:HTN, goal below 140/90 Take 1/2 tablet by mouth daily 45 Tablet 3 04/01/2024 1:13 PM EST 4 Active LORazepam 0.5 MG Oral Tablet (Ativan) Take 1 Tablet by mouth as needed for Anxiety. 15 Tablet 2 07/19/2023 8:50 AM EDT 4 Active Additional Information Patient taking differently: 0.5 TabletOral PRN, Anxiety, Reported on 06/02/2024 traZODone HCl 150 MG Oral Tablet (Desyrel) Take 1 Tablet by mouth at bedtime. 90 Tablet 1 04/15/2024 1:37 PM EST 4 Active Metoprolol Tartrate 25 MG Oral Tablet (Lopressor)Indic ations:HTN, goal below 140/90 TAKE ONE-HALF TABLET BY MOUTH IN THE MORNING AND ONE-HALF TABLET BEFORE BEDTIME 90 Tablet 2 04/28/2024 7:15 AM EST 4 Active Alendronate Sodium 70 MG Oral Tablet (Fosamax)Indicat ions:Osteoporosi s without current pathological fracture, unspecified osteoporosis type Take 1 Tablet by mouth once a week. 12 Tablet 3 05/23/2024 2:24 PM EDT 4 Active Trintellix 20 MG Oral Tablet (Vortioxetine HBr) Take 1 Tablet by mouth in the morning. 90 Tablet 1 06/11/2024 1:41 PM EDT 5 Active buPROPion HCl 100 MG Oral Tablet (Wellbutrin) Take 1 Tablet by mouth in the morning and 1 Tablet before bedtime. 60 Tablet 2 03/19/2024 11:26 AM EST 5 Active Vitamin D-[address] 25 MCG [...] BY MOUTH EVERY DAY 100 Tablet 1 05/13/2024 6:22 AM EDT 5 05/12/19 26 Active oxyBUTYnin Chloride ER 15 MG Oral Tablet Extended Release 24 Hour (Ditropan XL)Indications:U rinary urgency,Urge incontinence of urine Take 2 Tablets by mouth in the morning. 180 Tablet 3 05/22/2024 2:49 PM EDT 5 Active Metoclopramide HCl 5 MG Oral Tablet (Reglan) Take 1 Tablet by mouth every 4 hours as needed for Nausea. 20 Tablet 05/23/2024 2:24 PM EDT 5 Active Chlorhexidine Gluconate 4 % External Solution (Hibiclens) Wash with daily for 5 days prior to surgery. 120 mL 5 Active Mupirocin 2 % External Ointment (Bactroban) Apply to each nostril two times per day for the 5 days prior to surgery. 22 g 5 Active Primidone 50 MG Oral Tablet (Mysoline) Take one-half tablet by mouth twice daily 90 Tablet 1 5 Active documented as of this encounter (statuses as of 06/12/2024) Active Problems Problem Noted Date Diagnosed Date [...] disease), lumbar 11/21/19 12 [facility] Confirmation Research Other*[id number] 06/0 11/2009 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 B12 malabsorption s/p gastric bypass 07/14/2002 Allergic rhinitis 02/12/2002 Dyslipidemia, goal LDL below 130 12/04/2001 Chronic rhinitis HTN, goal below 140/90 Spinal stenosis, lumbar Spondylolisthesis documented as of this encounter (statuses as of 06/12/2024) Resolved Problems Problem Noted Date Diagnosed Date [...] as of this encounter (statuses as of 06/12/2024) Immunizations Name Administration Dates Next Due COVID-19 mRNA, LNP-s, No Pre serve, 2-Dose Series ([employer]) 12/08/2020,11/17/2020 Pneumococcal Conjugate Vacc, 13 Valent (Prevnar) [...] have concerns for your saf ety? No 05/04/2024 Do you have concerns for you r family's safety? (Household - for ages 0-17 years) Not on file 05/04/2024 Utilities Answer Date Recorded Do you have trouble paying y our heating, water, or electric bill? No 05/04/2024 Is your family able to pay t he heat, water, or electric bill? (Household - for ages 0-17 years) Not on file 05/04/2024 Does your family have access to good internet? (Household - for ages 0-17 years) Not on file 05/04/2024 Employment Status Answer Date Recorded Are you [...] 18 years and over) Not on file 05/04/2024 Does your family have a hard time getting a ride to doctors visits? (Household - for ages 0-17 years) Not on file 05/04/2024 Has lack of transportation k ept you from medical appointments, meetings, work, or from getting things needed for daily living? Check all that apply. No 05/04/2024 Do you (or your family) have trouble finding or paying for a ride (transportation)? (Household - for ages 0-17 years) Not on file 05/04/2024 Housing Stability Answer Date Recorded Do you currently live in a s helter or have no steady place to sleep at night? No 05/04/2024 Do you think you are at risk of becoming homeless? (Adult - for ages 18 years and over) Not on file 05/04/2024 Does your family worry about paying for your home or becoming homeless? (Household - for ages 0-17 years) Not on file 0 05/04/2024 Are you homeless or worried that you might be in the future? No 05/04/2024 Are you (or your family) arjun eless [...] money to get more. Never true 05/04/2024 Do you need food for this week? No 05/04/2024 Comments No Sex and Gender Information Value [...] this encounter Functional Status * Are you blind or do you have serious difficulty seeing, even when wearing glasses? Answer Date of Assessment Author No 08/14/2013 3:36 PM EDT Tarik Gold RN * Do you have serious difficulty walking or climbing stairs? (5 years old or older) Answer Date of Assessment Author No 08/14/2013 3:36 PM EDT Tarik Gold RN * Do you have difficulty dressing or bathing? (5 years old or older) Answer Date of Assessment Author No 08/14/2013 3:36 PM EDT Tarik Gold RN * Because of a physical, mental, or emotional condition, do you have difficulty doing errands alone such as visiting a doctor’s office or shopping? (15 years old or older) Answer Date of Assessment Author No 08/14/2013 3:36 PM EDT Tarik Gold RN documented as of this encounter Mental Status * Because of a physical, mental, or emotional condition, do you have serious difficulty concentrating, remembering, or making decisions? (5 years old or older) Answer Entry Date Author No 08/14/2013 3:36 PM EDT Tarik Gold RN documented in this encounter Plan of Treatment Upcoming Encounters Date Type Department Care Team (Late st Contact Info) Description 06/19/2024 10:54 AM EDT Hospital Encounter OR [facility], OPERATING ROOM [facility], [facility] [address] [place] [phone] Joseph Giordano MD [address] [place] [address] 06/19/2024 10:54 AM EDT - 06/19/2024 2:01 PM EDT Surgery OR [facility], OPERATING ROOM [facility], [facility] [address] [place] [address] Joseph Giordano MD [address] [place] [address] ARTHRODESIS SPINE POSTERIOR OR POSTERIOR LATERAL WITH LAMINECTOMY LUMBAR, COMBINED 07/03/2024 1:30 PM EDT Telemedicine Psychology, [place] [address] [place] [address] Roly Miller, [facility] [address] [place] [phone] 07/14/2024 11:30 AM EDT Office Visit Orthopaedics Spine Surgery, [place] [address] [place] [facility] [place] [phone] Suzette Alcala PA-C [address] [place] [facility] [place] [address] 07/15/2024 2:00 PM EDT Telemedicine Psychiatry, [place] [address] [place] [address] Brooke Deluca CRNP [address] [place] [address] 07/23/2024 1:00 PM EDT Telemedicine Nutrition Services [address] [place] [address] Jasvir Johnson, RDN [address] [place] [phone] 10/07/2024 2:40 PM EDT Telemedicine Endocrinology [address] [place] [phone] Daniel Franco MD [address] [place] [address] 10/15/2024 3:30 PM EDT Office Visit Neurology [facility] [place] [address] [facility] [place] [address] Mariya Harding PA-C [address] [place] [address] 10/21/2024 12:10 PM EDT Office Visit [facility] [address] [facility] [place] [phone] Elida Lance DO [address] [facility] [place] [address] 02/03/2026 2:20 PM EST Office Visit Dermatology, [address] [place] [phone] Yessi Morton PA-C [address] [place] [address] [place] [address] Scheduled Procedures Name Priority Associated Diagnoses Date/Ti me ARTHRODESIS SPINE POSTERIOR OR POSTERIOR LATERAL WITH LAMINECTOMY LUMBAR, COMBINED Spinal stenosis of lumbar region with neurogenic claudication 06/19/2024 10:54 AM EDT LAMINECTOMY, FACETECTOMY, OR FORAMINOTOMY (UNILATERAL OR BILATERAL WITH DECOMPRESSION OF SPINAL CORD, CAUDA EQUINA AND/OR NERVE ROOT(S) DURING POSTERIOR INTERBODY ARTHRODESIS, LUMBAR Spinal stenosis of lumbar region with neurogenic claudication 06/19/2024 10:54 AM EDT POSTERIOR SPINE INSTRUMENTATION NON SEGMENTAL Spinal stenosis of lumbar region with neurogenic claudication 06/19/2024 10:54 AM EDT INSERTION INTERBODY BIOMECHANICAL DEVICE ANTERIOR W/INTERBODY ARTHRODESIS Spinal stenosis of lumbar region with neurogenic claudication 06/19/2024 10:54 AM EDT OBTAIN AUTOGRAFT FOR SPINE SURGERY LOCAL Spinal stenosis of lumbar region with neurogenic claudication 06/19/2024 10:54 AM EDT REMOVAL POSTERIOR SPINAL NONSEGMENTAL INSTRUMENTATION Spinal stenosis of lumbar region with neurogenic claudication 06/19/2024 10:54 AM EDT Health Maintenance Due Date Last Done Comments Fecal Occult Blood Test 2006 Sigmoidoscopy 2006 Mammogram 08/09/2017 08/09/2016, 09/2015, 08/05/2014, Additional history exists Pneumococcal Vaccine: 50+ Years (3 of 3 - PCV20 or PCV21) 07/09/2021 07/09/2016, 08/21/2013 Colonoscopy 01/14/2022 01/15/2012, 01/15/2012 COVID-19 Vaccine (3 - season) 2023 12/08/2020, 11/17/2020 Albumin/Creatinine Ratio 03/21/202403/21/ 024, 02/03/2019, 09/05/2017, Additional history exists CKD PHOS USE SMARTSET 51419 10/17/2024 08/1 08/2023, 03/16/2022, 02/09/2021, Additional history exists GFR 12/02/2024 06/02/2024, 10/02, 10/03/2023, Additional history exists Cologuard 04/04/2025 04/04/2022, 03/05, 03/27/2022 Colorectal Cancer Screening 04/04/2025 Depression Monitoring 05/20/2025 05/20/2024 , 01/02/2024, 12/26/2023 CKD HGB USE SMARTSET 51609 06/02/202506/02, 06/02/2024, 10/03/2023, Additional history exists Diabetes Screening 06/03/2027 06/02/2024, 0 06/02/2024, 10/18/2023, Additional history exists Lipid Panel 09/12/2028 09/13/2023, [...] this encounter Medical Devices Implanted Type Area Assembler Leather Goods Device Identifier Shelf Expiration Date Model / Serial / Lot Graft Infuse Bone Sm [id number] - [id number] Implanted:Qt y: 1 on 02/22/2012 at OR [facility] N/A: Spine Lumbar [employer] : NEUROLOGIC PAIN 08/01/2014 [id number] / / [id number] Screw 6x45 Poly Si [id number] - [id number] Implanted:Qt y: 2 on 02/22/2012 at OR [facility] N/A: Spine Lumbar JNJ : [employer] [id number] / / Screw 7x35 Poly Si [id number] - [id number] Implanted:Qt y: 2 on 02/22/2012 at OR [facility] N/A: Spine Lumbar JNJ : [employer] [id number] / / Asif 5.5x55 Ti Prbnt [id number] - [id number] Implanted:Qt y: 2 on 02/22/2012 at OR [facility] N/A: Spine Lumbar JNJ : DEPUY SPINE [id number] / / Screw Set Sng Inner [id number] - [id number] Implanted:Qt y: 4 on 02/22/2012 at OR [facility] N/A: Spine Lumbar JNJ : DEPUY SPINE [id number] / / Cage 28x8 Leopard [id number] - [id number] Implanted:Qt y: 1 on 02/22/2012 at OR [facility] N/A: Spine Lumbar JNJ : [employer] [id number] / / Implant Brst Mod Cls Pro 360cc - [id number] Implanted:Qt y: 1 on 11/12/2012 at OR [facility] Right: Breast MENTOR KRISSY 09/11/2017 [id number] / [id number] / [id number] Implant Brst Mod Cls Pro 360cc - [id number] Implanted:Qt y: 1 on 11/12/2012 at OR [facility] Left: Breast MENTOR KRISSY 08/12/[address] [place] [address] / [id number] / [id number] 4.0 X 14 Variable Self Starting Screw Implanted:Qt y: 4 on 02/05/2020 by Luis Eduardo Ross MD at OR [facility] N/A: Spine Cervical KWADOW [id number] / / 1 Level 20mm Iva View Plate Implanted:Qt y: 1 on 02/05/2020 by Luis Eduardo Ross MD at OR [facility] N/A: Spine Cervical KWADWO [id number] / / [id number] Alcutian Implanted:Qt y: 1 on 02/05/2020 by Luis Eduardo Ross MD at OR [facility] N/A: Spine Cervical KWADWO [id number] / / Description:alctuian cage 2.5cc Vitoss Bimodal Foam Pack Implanted:Qt y: 1 on 02/05/2020 by Luis Eduardo Ross MD at OR [facility] N/A: Spine Cervical KWADWO [id number] 11/29/2020 [id number] / [id number] / [id number] Rick Donnelly One - [id number] Implanted:Qt y: 1 on 08/31/2022 by Chico Perry MD at OR [facility] N/A: Vagina [employer] 08/10/2023 [id number] / / [id number] documented as of this encounter Advance Directives * Full Code (Latest Code Status on File) Date Activated Date Inactivated Comments 08/31/2022 8:00 [...] Full Code Date Activated Date Inactivated Comments 08/14/2013 10:13 AM 08/16/2013 2:34 PM This order reflects the patients wishes and were consensually agreed upon. Question Answer Comments Discussion of Advance Directives occurred with: Patient Does the patient have a Living Will? No Does the patient have Health Care Power of Attor gregg? No * Full Code Date Activated Date Inactivated Comments 11/12/2012 5:03 PM 11/13/2012 2:31 PM This order r eflects the patients wishes and were consensually agreed upon. Care Teams Oracle Bpm Developer Relationship Specialty Start Date End Date Elida Lance DO [address] [place] [id number] PCP - General Family Medicine 05/22/24 documented as of this encounter
--- OUTSIDE RECORDS SUMMARY | 2024-06-26 12:48 | External Medical Summary ---
Author Name Unknown Address Unknown Organization : Laboratory Report Ordering Provider Test Date Status CRISTAL WILDE 06/19/2024 10:56:42 Final Perform within 2 hours of moore rgical procedure. Repeat if procedure delayed beyond 2 hours. Observation Date Value Abnormality Reference (Units ) Status Glucose Point of Care 06/19/2024 10:56:42 81 70-120 (mg/dL) Final Performing Location
--- OUTSIDE RECORDS SUMMARY | 2024-06-26 12:48 | External Medical Summary ---
Author Name Unknown Address Unknown Organization : Laboratory Report Ordering Provider Test Date Status FATOU HERNANDEZ 06/19/2024 14:01:10 Final Observation Date Value Abnormality Reference (Units ) Status Glucose Point of Care 06/19/2024 14:01:10 84 70-120 (mg/dL) Final Performing Location
--- OUTSIDE RECORDS SUMMARY | 2024-06-26 12:48 | External Medical Summary ---
Author Name Unknown Address Unknown Organization K01:[facility] - [address] [place] [address] Laboratory Report Ordering Provider Test Date Status CRISTAL WILDE 06/20/2024 06:15:00 Final Observation Date Value Abnormality Reference (Units ) Status BUN 06/20/2024 06:15:00 9 6-20 (mg/dL) Final Creatinine 06/20/2024 06:15:00 0.8 0.5-1.0 (mg/dL) Final Glomerular filtration rate/1.73 sq M.predicted [Volume Rate/Area] in Serum, Plasma or Blood by Creatinine-based formula (CKD-EPI) 06/20/2024 06:15:00 80 >=60 (mL/min) Final eGFR is calculated based on the CKD-EPI 2020 equation. Sodium 06/20/2024 06:15:00 140 135-146 (m mol/L) Final Potassium 06/20/2024 06:15:00 4.7 3.5-5.1 (m mol/L) Final Cl 06/20/2024 06:15:00 110 Above high normal 98 -107 (mmol/L) Final CO2 06/20/2024 06:15:00 23 22-32 (mmo l/L) Final Anion gap 06/20/2024 06:15:00 7 7-15 (mmol /L) Final Glucose 06/20/2024 06:15:00 80 70-120 (mg /dL) Final Calcium 06/20/2024 06:15:00 6.2 Below low normal 8.4 -10.2 (mg/dL) Final Performing Location [facility] - [address] [place] [address]
--- OUTSIDE RECORDS SUMMARY | 2024-06-26 12:48 | External Medical Summary ---
Author Name Unknown Address Unknown Organization K01:LAB[facility]ATORY [place] [address] [facility] [address] Laboratory Report Ordering Provider Test Date Status CRISTAL WILDE 06/21/2024 05:48:00 Final Observation Date Value Abnormality Reference (Units ) Status WBC, Total 06/21/2024 05:48:00 7.23 4.00-10.80 (K/uL) Final RBC 06/21/2024 05:48:00 2.66 3.85-5.15 (M/uL) Final Hemoglobin 06/21/2024 05:48:00 8.4 Below low normal 12.0-15.3 (g/dL) Final HCT 06/21/2024 05:48:00 26.0 Below low normal 36.0-45.2 (%) Final MCV 06/21/2024 05:48:00 97.7 81.5-97.5 (fL) Final MCH 06/21/2024 05:48:00 31.6 27.0-34.0 (pg) Final MCHC 06/21/2024 05:48:00 32.3 32.0-36.0 (g/dL) Final RDW 06/21/2024 05:48:00 14.6 11.5-15.5 (%) Final Platelets 06/21/2024 05:48:00 112 Below low normal 140-400 (K/uL) Final MPV 06/21/2024 05:48:00 9.6 6.6-11.1 (fL) Final Nucleated erythrocytes/100 leukocytes [Ratio] in Blood by Automated count 06/21/2024 05:48:00 0 <=0 (/100 WBCs) Final Performing Location [facility] - [facility] [place] [address]
--- OUTSIDE RECORDS SUMMARY | 2024-06-26 12:48 | External Medical Summary ---
Author Name Unknown Address Unknown Organization K01:[facility] [address] [facility] [place] [address] Laboratory Report Ordering Provider Test Date Status CRISTAL WILDE 06/22/2024 06:02:00 Final Observation Date Value Abnormality Reference (Units ) Status WBC, Total 06/22/2024 06:02:00 6.63 4.00-10.80 (K/uL) Final RBC 06/22/2024 06:02:00 2.77 3.85-5.15 (M/uL) Final Hemoglobin 06/22/2024 06:02:00 8.6 Below low normal 12.0-15.3 (g/dL) Final HCT 06/22/2024 06:02:00 27.0 Below low normal 36.0-45.2 (%) Final MCV 06/22/2024 06:02:00 97.5 81.5-97.5 (fL) Final MCH 06/22/2024 06:02:00 31.0 27.0-34.0 (pg) Final MCHC 06/22/2024 06:02:00 31.9 32.0-36.0 (g/dL) Final RDW 06/22/2024 06:02:00 14.3 11.5-15.5 (%) Final Platelets 06/22/2024 06:02:00 141 140-400 (K/uL) Final MPV 06/22/2024 06:02:00 9.3 6.6-11.1 (fL) Final Nucleated erythrocytes/100 leukocytes [Ratio] in Blood by Automated count 06/22/2024 06:02:00 0 <=0 (/100 WBCs) Final Performing Location [facility] [place] [address]
--- OUTSIDE RECORDS SUMMARY | 2024-06-26 12:48 | External Medical Summary | Summary of Care ---
Author Name Unknown Organization [facility] Address [address] [facility] [place] [address] Phone [phone] Care Team Providers Care Weight Clerk Name Role Phone Elida Lance DO Primary [...] disease), lumbar 11/21/19 12 [place] Confirmation Research Other*[id number] 06/0 11/2009 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 B12 [...] Description 07/03/2024 1:30 PM EDT Telemedicine Psychology, [address] [address] Roly Miller, [facility] [address] [place] [address] 07/14/2024 2:00 PM EDT Office Visit Orthopaedics Spine Surgery, [place] [address] [place] [address] Elham Gutierrez PA-C [address] [place] [address] 07/15/2024 2:00 PM EDT Telemedicine Psychiatry, [address] [place] [address] Brooke Deluca CRNP [address] [place] [address] 07/23/2024 1:00 PM EDT Telemedicine Nutrition Services [place] [address] [place] [address] Jasvir Johnson, RDN [address] [place] [address] 10/07/2024 2:40 PM EDT Telemedicine Endocrinology [address] [place] [address] Daniel Franco MD [address] [place] [address] 10/15/2024 3:30 PM EDT Office Visit Neurology [facility] [place] [address] [place] [address] Mariya Harding PA-C [facility] [place] [address] 10/21/2024 12:10 PM EDT Office Visit Family Practice, [place] [address] [facility] [place] [address] Elida Lance DO [address] [facility] [place] [address] 02/03/2026 2:20 PM EST Office Visit [facility]atology, [place] [facility] [place] [address] Yessi Morton PA-C [address] [place] [address] [place] [address] Health Maintenance Due Date Last Done Comments Fecal Occult Blood Test 2006 Sigmoidoscopy 2006 Mammogram 08/09/2017 08/09/2016, 06/09/2015, 08/05/2014, Additional history exists Pneumococcal Vaccine: 50+ Years (3 of 3 - PCV20 or PCV21) 07/09/2021 07/09/2016, 08/21/2013 Colonoscopy 01/14/2022 01/15/2012, 01/15/2012 COVID-19 Vaccine (3 - season) 2023 12/08/2020, 11/17/2020 Albumin/Creatinine Ratio 03/21/2024 024, 02/03/2019, 09/05/2017, Additional history exists CKD PHOS USE SMARTSET 32801 10/17/202410/02, 03/16/2022, 02/09/2021, Additional history exists GFR 12/22/2024 06/22/2024, 06/03, 06/20/2024, Additional history exists Cologuard 04/04/2025 04/04/2022, 03/05, 03/27/2022 Colorectal Cancer Screening 04/04/2025 Depression Monitoring 05/20/2025 05/20/2024 , 01/02/2024, 12/26/2023 CKD HGB USE SMARTSET 95050 06/22/202506/22, 06/21/2024, 06/20/2024, Additional history exists Diabetes [...] this encounter Medical Devices Implanted Type Area Toolroom Clerk Device Identifier Shelf Expiration Date Model / Serial / Lot Graft Infuse Bone Sm [id number] - [id number] Implanted:Qt y: 1 on [place] [facility]: Spine Lumbar [employer] : NEUROLOGIC PAIN 08/01/2014 [id number] / / [id number] Screw 6x45 Poly Si [id number] - [id number] Implanted:Qt y: 2 on 02/22/2012 [place] [facility] [place]: Spine Lumbar JNJ : ETHICON CARD[employer]OVATIONS [id number] / / Screw 7x35 Poly Si [id number] - [id number] Implanted:Qt y: 2 on 02/22/2012 [place] [facility] [place]A: Spine Lumbar JNJ : ETHICON CARDIOVATIONS [id number] / / Asif 5.5x55 Ti Prbnt [id number] - [id number] Implanted:Qt y: 2 on 02/22/2012 [place] [facility] [place]A: Spine Lumbar JNJ : DEPUY SPINE [id number] / / Screw Set Sng Inner [id number] - [id number] Implanted:Qt y: 4 on 02/22/2012 at [place] [facility] [place]/A: Spine Lumbar JNJ : DEPUY SPINE [id number] / / Cage 28x8 Leopard [id number] - [id number] Implanted:Qt y: 1 on 02/22/2012 [place] [facility] [place]A: Spine Lumbar JNJ : ETHICON CARDIOVATIONS [id number] / / Implant Brst Mod Cls Pro 360cc - [id number] Implanted:Qt y: 1 on 11/12/2012 at [place] [facility] [place] Right: Breast [employer] KRISSY 09/11/2017 [id number] / [id number] / [id number] Implant Brst Mod Cls Pro 360cc - [id number] Implanted:Qt y: 1 on 11/12/2012 at [place] [facility] [place] Left: Breast [employer]OR KRISSY 08/12/2017 350-2360 / [id number] / [id number] 4.0 X 14 Variable Self Starting Screw Implanted:Qt y: 4 on 02/05/2020 by Luis Eduardo Ross MD at OR [facility] N/A: Spine Cervical KWADWO [id number] A / / 1 Level 20mm [place] Plate Implanted:Qt y: 1 on 02/05/2020 by Luis Eduardo Ross MD at OR [facility] N/A: Spine Cervical KWADWO [id number] / / [id number] Alcutian Implanted:Qt y: 1 on 02/05/2020 by Luis Eduardo Ross MD at OR [facility] N/A: Spine Cervical KWADWO [id number] / / Description:alctuian cage 2.5cc Vitoss Bimodal Foam Pack Implanted:Qt y: 1 on 02/05/2020 by Luis Eduardo Ross MD at OR [facility] N/A: Spine Cervical KWADWO [id number] 11/29/2020 [id number] / [id number] / [id number] Sling Desara One - [id number] Implanted:Qt y: 1 on 08/31/2022 by Chico Perry MD at OR [facility] N/A: Vagina [employer] 08/10/2023 [id number] / / [id number] Bone Mtrx Vivigen Formble 10cc - [id number] - [id number] Implanted:Qt y: 1 on 06/19/2024 by Joseph Giordano MD at [place] [facility] [place]/A: Spine Lumbar L[employer] 04/29/2025 BL-[id number] / [id number] / [id number] Implant Graft Bone Ifact 2.5cc - [id number] Implanted:Qt y: 1 on 06/19/2024 by Joseph Giordano MD [place] [facility] Spine Lumbar [employer] [id number] 04/03/2026 700-025 / / [id number] Eit/ Plif 13mm 12 Degree 22/ Implanted:Qt y: 1 on 06/19/2024 by Joseph Giordano MD at [place] [facility] [place]/A: Spine Lumbar 08/31/2025 [id number] / / [id number] Duragen Plus 1x3 Dp 1013 Min5 - [id number] - [id number] Implanted:Qt y: 1 on 06/19/2024 by Joseph Giordano MD at [place] [facility] [place] N/A: Spine Lumbar [employer] KRISSY [id number] 12/01/2026 [id number] / [id number] / [id number] Screw 6x45 Poly Si [id number] - [id number] Implanted:Qt y: 2 on 06/19/2024 by Joseph Giordano MD [place] [facility] [place]/A: Spine Lumbar JNJ : ETHICON C[employer]OVATIONS [id number] / / Screw 7x45 Poly Si [id number] - [id number] Implanted:Qt y: 2 on 06/19/2024 by Joseph Giordano MD at [place] [facility] [place]/A: Spine Lumbar JNJ : ETHICON CARDIOVATIONS [id number] / / Pre Lordosed Asif W Line 45mm - [id number] Implanted:Qt y: 2 on 06/19/2024 by Joseph Giordano MD [place] [facility] [place]A: Spine Lumbar JNJ : DEPUY SPINE [id number] / / Screw Set Sng Inner [id number] - [id number] Implanted:Qt y: 4 on 06/19/2024 by Joseph Giordano MD [place] [facility] [place]A: Spine Lumbar JNJ : ETHICON CARDIOVATIONS [id number] / / Expedium Ti Sfx 5.5 Lat A6 - [id number] Implanted:Qt y: 1 on 06/19/2024 by Joseph Giordano MD [place] [facility] [place]A: Spine Lumbar JNJ : ETHICON CARDIOVATIONS [id number] / / documented as of this encounter [...] and were consensually agreed upon. Care Teams Weight Clerk Relationship Specialty Start Date End Date Elida Lance DO [address] [place] [address] PCP - General Family Medicine 05/22/24 documented as of this encounter
--- OUTSIDE RECORDS SUMMARY | 2024-06-26 12:49 | External Medical Summary | Summary of Care ---
Author Name Unknown Organization [facility] Address [address] [place] [address] Phone [phone] Care Team Providers Care Rn On Site Name Role Phone Elida Lance DO Primary Care Provider [phone] Reason for Visit * Reason Onset Date Comments Test Results 06/03/2024 Encounter Details Date Type Department Care Team (Late st Contact Info) Description 06/03/2024 Telephone Orthopaedics Spine Surgery, [place] [address] [place] [address] Suzette Alcala PA-C [address] [place] [address] Test Results Allergies Active Allergy Reactions Criticality Noted Date Comments Nsaids 02/01/2020 Hx gastric bypass Other Allergy (See Comments) Rash Medium 013 Dermabond prineo Penicillins 10/04/1999 Rash, last dose was in her 20's Sulfa Antibiotics 10/04/1999 Rash in her early 20's documented as of this encounter (statuses as of 06/03/2024) Medications MULTIVITAMINS PO CAPS Take 1 Capsule [...] 0.5 TabletOral PRN, Anxiety, Reported on 06/02/2024 Primidone 50 MG Oral Tablet (Mysoline) Take one-half tablet by mouth twice daily 180 Tablet 03/13/2024 2:46 PM EST 4 Active traZODone HCl 150 MG Oral Tablet (Desyrel) [...] mouth in the morning. 90 Tablet 1 03/17/2024 2:21 PM EST 5 Active buPROPion HCl 100 MG Oral [...] prior to surgery. 22 g 5 Active documented as of this encounter (statuses as of 06/03/2024) Active Problems Problem Noted Date Diagnosed Date Major depressive disorder, recurrent, in partial remission 12/27/2021 Generalized anxiety disorder 12/27/2021 S/P cervical spinal fusion 02/05/2020 DDD (degenerative disc disease), cervical 2017 Major depressive disorder, recurrent, moderate 0 06/14/2017 Memory changes 01/01/2017 Benign hypertension with CKD (chronic kidney disease) stage III 12/26/2016 Controlled substance agreement signed 04/08/2015 DDD (degenerative disc disease), lumbar 11/21/19 12 [place] Confirmation Research Other*[id number] 06/11/2009 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 B12 malabsorption s/p gastric bypass 07/14/2002 Allergic rhinitis 02/12/2002 Dyslipidemia, goal LDL below 130 12/04/2001 Chronic rhinitis HTN, goal below 140/90 Spinal stenosis, lumbar Spondylolisthesis documented as of this encounter (statuses as of 06/03/2024) Resolved Problems Problem Noted Date Diagnosed Date [...] Per Obesity Taxonomy Myalgia and myositis 12/09/2001 05/26/2 018 JOINT PAIN-L-LEG 12/09/2001 12/03/2016 Lumbago 07/07/2018 ADJ DISORDER W/DEPRES MOOD 0 07/07/2018 Asthma, allergic 09/02/2008 Urinary frequency 12/03/2016 documented as of this encounter (statuses as of 06/03/2024) Immunizations Name Administration Dates Next Due COVID-19 mRNA, LNP-s, No Pre serve, 2-Dose Series (Viamericas) 12/08/2020,11/17/2020 Pneumococcal Conjugate Vacc, 13 Valent (Prevnar) [...] older, IM (Adacel) 02/06/2010 Varicella Zoster Vaccine (Adult) 07/09/2016 Zoster Vaccine Recombinant (Shingrix) 06/17/2018 ,02/28/2018 [...] money to buy more. Never true 05/05/19 Within the past 12 months, t he [...] Tarik Gold RN documented in this encounter Miscellaneous Notes * Telephone Encounter - Suzette Alcala PA-C - 06/03/2024 7:27 AM EDT + nasal swab Meds sent documented in this encounter Plan of Treatment Upcoming Encounters Date Type Department Care Team (Late st Contact Info) Description 06/05/2024 12:30 PM EDT Telemedicine [facility] [place] [address] [facility] [place] [address] Roly Miller, [facility] [address] [facility] [place] [phone] 06/19/2024 10:54 AM EDT Hospital Encounter OR C, OPERATING ROOM [facility], [place] [address] [place] [address] Joseph Giordano MD [address] [place] [address] 06/19/2024 10:54 AM EDT - 06/19/2024 2:01 PM EDT Surgery OR [facility], OPERATING ROOM [facility], [place] [address] [place] [address] Joseph Giordano MD [address] [place], [place] [id number] ARTHRODESIS SPINE POSTERIOR OR POSTERIOR LATERAL WITH LAMINECTOMY LUMBAR, COMBINED 07/14/2024 11:30 AM EDT Office Visit Orthopaedics Spine Surgery, [place] [address] [place] [address] Suzette Alcala PA-C [address] [place], [place] [address] 07/15/2024 2:00 PM EDT Telemedicine Psychiatry, [place] [address] [place] [address] Brooke Deluca CRNP [address] [place] [address] 07/23/2024 1:00 PM EDT Telemedicine Nutrition Services [address] [place] [address] Jasvir Johnson, RDN [address] [facility] [place] [address] 10/07/2024 2:40 PM EDT Telemedicine Endocrinology [address] [place] [address] Daniel Franco MD [address] [place] [address] 10/15/2024 3:30 PM EDT Office Visit Neurology [facility] [place] [address] [facility] [place] [address] Mariya Harding PA-C [facility] [place] [address] 10/21/2024 12:10 PM EDT [facility] [place] [facility] [place] [address] [facility] [place] [address] Elida Lance DO [address] [facility] [place] [address] 02/03/2026 2:20 PM EST Office [facility], [facility] [place] [address] [facility] [place] [address] Yessi Morton PA-C [address] [place] [address] [place] [address] Scheduled Procedures Name Priority Associated Diagnoses Date/Ti [...] Test 2006 Sigmoidoscopy 2006 Mammogram 08/09/2017 08/09/2016, 0609/2015, 08/05/2014, Additional history exists Pneumococcal Vaccine: 50+ Years (3 of 3 - PCV20 or PCV21) 07/09/2021 07/09/2016, 08/21/2013 Colonoscopy 01/14/2022 01/15/2012, 01/15/2012 COVID-19 Vaccine ( - season) 2023 12/08/2020, 11/17/2020 Albumin/Creatinine Ratio 03/21/2024 024, 02/03/2019, 09/05/2017, Additional history exists CKD PHOS USE SMARTSET 23378 10/17/202410/02, 03/16/2022, 02/09/2021, Additional history exists GFR 12/02/2024 06/02/2024, 10/02, 10/03/2023, Additional history exists Cologuard 04/04/2025 04/04/2022, 03/05, 03/27/2022 Colorectal Cancer Screening 04/04/2025 Depression Monitoring 05/20/2025 05/20/2024 , 01/02/2024, 12/26/2023 CKD HGB USE SMARTSET 55686 06/02/202506/02, 06/02/2024, 10/03/2023, Additional history exists Diabetes [...] this encounter Medical Devices Implanted Type Area 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 Instructor Device Identifier Shelf Expiration Date Model / Serial / Lot Graft Infuse Bone Sm [id number] - [id number] Implanted:Qt y: 1 on 02/22/2012 at OR [facility] N/A: Spine Lumbar [employer] : NEUROLOGIC PAIN 08/01/2014 [id number] / / [id number] Screw 6x45 Poly Si [id number] - [id number] Implanted:Qt y: 2 on 02/22/2012 at OR [facility] N/A: Spine Lumbar JNJ : ETHICON CARDIOVATIONS [id number] / / Screw 7x35 Poly Si [id number] - [id number] Implanted:Qt y: 2 on 02/22/2012 at OR [facility] N/A: Spine Lumbar JNJ : ETHICON CARDIOVATIONS [id number] / / Asif 5.5x55 Ti Prbnt [id number] - [id number] Implanted:Qt y: 2 on 02/22/2012 at OR [facility] N/A: Spine Lumbar JNJ : DEPUY SPINE [id number] / / Screw Set Sng Inner [id number] - [id number] Implanted:Qt y: 4 on 02/22/2012 at OR [facility] N/A: Spine Lumbar JNJ : DEPUY SPINE [id number] / / Cage 28x8 Leopard [id number] - [id number] Implanted:Qt y: 1 on 02/22/2012 at OR [facility] N/A: Spine Lumbar JNJ : ETHICON CARDIOVATIONS [id number] / / Implant Brst Mod Cls Pro 360cc - [id number] Implanted:Qt y: 1 on 11/12/2012 at OR [facility] Right: Breast [employer] KRISSY 09/11/2017 350-7360 / [id number] / [id number] Implant Brst Mod Cls Pro 360cc - [id number] Implanted:Qt y: 1 on 11/12/2012 at OR [facility] Left: Breast M[employer] KRISSY 08/12/2017 [facility]1560 / [id number] / [id number] 4.0 X 14 Variable Self Starting Screw Implanted:Qt y: 4 on 02/05/2020 by Luis Eduardo Ross MD at OR [facility] N/A: Spine Cervical KWADWO [id number] A / / 1 Level 20mm [place] View Plate Implanted:Qt y: 1 on 02/05/2020 by Luis Eduardo Ross MD at OR [facility] N/A: Spine Cervical KWADWO [id number] / / [id number] Alcutian Implanted:Qt y: 1 on 02/05/2020 by Luis Eduardo Ross MD at OR [facility] N/A: Spine Cervical KWADWO [id number] / / Description:alctuian cage 2.5cc Vitoss Bimodal Foam Pack Implanted:Qt y: 1 on 02/05/2020 by Luis Eduardo Ross MD at OR [facility] N/A: Spine Cervical KWADWO [id number] 11/29/2020 [address] / [id number] / [id number] Sling Desara One - [id number] Implanted:Qt y: 1 on 08/31/2022 by Chico Perry MD at OR [facility] N/A: Vagina [employer] 08/10/2023 [id number] / / [id number] documented as of this encounter Advance Directives [...] and were consensually agreed upon. Care Teams Rn On Site Relationship Specialty Start Date End Date Elida Lance DO [address] [place] [address] PCP - General Family Medicine 05/22/24 documented as of this encounter
--- OUTSIDE RECORDS SUMMARY | 2024-06-26 12:49 | External Medical Summary | Summary of Care ---
Author Name Unknown Organization [facility] Address [address] [facility] [place] [address] Phone [phone] Care Team Providers Care Ethics Officer Name Role Phone Elida Lance DO Primary Care Provider [phone] Reason for Visit * Reason Comments Medication Refill Encounter Details Date Type Department Care Team (Late st Contact Info) Description 06/09/2024 Refill Neurology [facility] [place] [address] [place] [address] Erin Davidson PA-C Allergies Active Allergy Reactions Criticality Noted Date Comments Nsaids 02/01/2020 Hx gastric bypass Other Allergy (See Comments) Rash Medium 013 Dermabond prineo Penicillins 10/04/1999 Rash, last dose was in her 20's Sulfa Antibiotics 10/04/1999 Rash in her early 20's documented as of this encounter (statuses as of 06/10/2024) Medications MULTIVITAMINS PO CAPS Take 1 Capsule [...] 45 Tablet 3 04/01/2024 1:13 PM EST 07/10/19 24 Active LORazepam 0.5 MG Oral Tablet (Ativan) Take 1 Tablet by mouth as needed for Anxiety. 15 Tablet 2 07/19/2023 8:50 AM EDT 07/17/19 24 Active Additional Information Patient taking differently: 0.5 TabletOral PRN, Anxiety, Reported on 06/02/2024 traZODone HCl 150 MG Oral Tablet (Desyrel) Take 1 Tablet by mouth at bedtime. 90 Tablet 1 04/15/2024 1:37 PM EST 01/14/20 24 Active Metoprolol Tartrate 25 MG Oral Tablet (Lopressor)Indic ations:HTN, goal below 140/90 TAKE ONE-HALF TABLET BY MOUTH IN THE MORNING AND ONE-HALF TABLET BEFORE BEDTIME 90 Tablet 2 04/28/2024 7:15 AM EST 01/26/20 24 Active Alendronate Sodium 70 MG Oral Tablet (Fosamax)Indicat ions:Osteoporosi s without current pathological fracture, unspecified osteoporosis type Take 1 Tablet by mouth once a week. 12 Tablet 3 05/23/2024 2:24 PM EDT 02/27/20 24 Active Trintellix 20 MG Oral Tablet (Vortioxetine HBr) Take 1 Tablet by mouth in the morning. 90 Tablet 1 03/17/2024 2:21 PM EST 03/12/19 25 Active buPROPion HCl 100 MG Oral Tablet (Wellbutrin) Take 1 Tablet by mouth in the morning and 1 Tablet before bedtime. 60 Tablet 2 03/19/2024 11:26 AM EST 03/16/19 25 Active Vitamin [...] 100 Tablet 1 05/13/2024 6:22 AM EDT 05/12/19 25 026 Active oxyBUTYnin Chloride ER 15 MG Oral Tablet Extended Release 24 Hour (Ditropan XL)Indications:U rinary urgency,Urge incontinence of urine Take 2 Tablets by mouth in the morning. 180 Tablet 3 05/22/2024 2:49 PM EDT 05/20/19 25 Active Metoclopramide HCl 5 MG Oral Tablet (Reglan) Take 1 Tablet by mouth every 4 hours as needed for Nausea. 20 Tablet 05/23/2024 2:24 PM EDT 05/22/19 25 Active Chlorhexidine Gluconate 4 % External Solution (Hibiclens) Wash with daily for 5 days prior to surgery. 120 mL 06/04/19 25 Active Mupirocin 2 % External Ointment (Bactroban) Apply to each nostril two times per day for the 5 days prior to surgery. 22 g 06/04/19 25 Active Primidone 50 MG Oral Tablet (Mysoline) Take one-half tablet by mouth twice daily 90 Tablet 1 06/11/19 25 Active Primidone 50 MG Oral Tablet (Mysoline) Take one-half tablet by mouth twice daily 180 Tablet 03/13/2024 2:46 PM EST 10/16/19 24 025 Discontin ued(Refil l) documented as of this encounter (statuses as of 06/10/2024) Active Problems Problem Noted Date Diagnosed Date Major depressive disorder, recurrent, in partial remission 12/27/2021 Generalized anxiety disorder 12/27/2021 S/P cervical spinal fusion 02/05/2020 DDD (degenerative disc disease), cervical 2017 Major depressive disorder, recurrent, moderate 0 06/14/2017 Memory changes 01/01/2017 Benign hypertension with CKD (chronic kidney disease) stage III 12/26/2016 Controlled substance agreement signed 04/08/2015 DDD (degenerative disc disease), lumbar 11/21/19 12 TAM[employer] Confirmation Research Other*[id number] 06/0 11/2009 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 B12 malabsorption s/p gastric bypass 07/14/2002 Allergic rhinitis 02/12/2002 Dyslipidemia, goal LDL below 130 12/04/2001 Chronic rhinitis HTN, goal below 140/90 Spinal stenosis, lumbar Spondylolisthesis documented as of this encounter (statuses as of 06/10/2024) Resolved Problems Problem Noted Date Diagnosed Date [...] as of this encounter (statuses as of 06/10/2024) Immunizations Name Administration Dates Next Due COVID-19 mRNA, LNP-s, No Pre serve, 2-Dose Series ([employer]) 12/08/2020,11/17/2020 Pneumococcal Conjugate Vacc, 13 Valent (Prevnar) [...] encounter Miscellaneous Notes * Telephone Encounter - Mariya Harding PA-C - 06/10/2024 12:44 PM EDTSigned Prescriptions: Disp Refills Primidone 50 MG Oral Tablet (Mysoline) 90 Tab*1 Sig: Take one-half tablet by mouth twice daily Authorizing Provider: MARIYA HARDING * Telephone Encounter - Claude Goodman [facility] - 06/10/2024 12:38 PM EDT Pending Prescriptions: Disp Refills Primidone 50 MG Oral Tablet (Mysoline) 90 Tab*1 Sig: Take one-half tablet by mouth twice daily * Telephone Encounter - Claude Goodman RP - 06/10/2024 12:34 PM EDT Former patient of Erin Davidson. Upcoming appt 10/15/24. Please approve if appropriate. Thanks, Claude Goodman, PharmD Clinical Pharmacist [facility] [phone] 06/10/2024, 12:37 PM * Telephone Encounter - Domenic Reynolds - 06/09/2024 12:04 PM EDTPending Prescriptions: Disp Refills Primidone 50 MG Oral Tablet (Mysoline) 180 Ta*0 Sig: Take one-half tablet by mouth twice daily * Telephone Encounter - Domenic Reynolds - 06/09/2024 12:03 PM EDT Did you pend patient's preferred pharmacy and medication before forwarding?yes Pharmacy: [facility] Pending Prescriptions: Disp Refills Primidone 50 MG Oral Tablet (Mysoline) 180 Ta*0 Sig: Take one-half tablet by mouth twice daily Last Visit: 10/16/2023 (in office), Visit date not found (telemedicine) Next Visit: 10/15/2024 If no future appointments scheduled, and last appointment is greater than a year ago, please schedule patient for a follow-up appointment Last date the medication was ordered: 10/16/2023 Is this request for a controlled substance?No Urine Drug Screen: Results for orders placed or performed in visit on 06/02/24 TOXICOLOGY, URINE SCREEN W/ CONFIRMATION Result Value Amphetamines Screen, U Negative Benzodiazepines Screen, U Negative Cannabinoids Screen, U Positive (A) Cocaine Metabolite Screen, U Negative Fentanyl Screen, U Negative Hydrocodone Screen, U Negative Methadone Metabolite Screen, U Negative Morphine/Codeine Screen, U Negative Oxycodone Screen, U Negative Narrative Cutoff Concentrations: Drug Level Amphetamines 500 ng/mL Benzodiazepines 100 ng/mL Cannabinoids 50 ng/mL Cocaine Metabolite 150 ng/mL Fentanyl 1 ng/mL Hydrocodone / Hydromorphone 300 ng/mL Methadone Metabolite 100 ng/mL Morphine / Codeine 300 ng/mL Oxycodone / Oxymorphone 100 ng/mL Screening results are presumptive and can only be used for medical purposes. Positive screening results are reflexed to confirmatory testing. Results for orders placed or performed in visit on 06/14/17 OPIOIDS/BENZO COMPLIANCE MONITORING W/INTERP Result Value Pain Management Interpretation (NOTE) URINE DRUG SCREEN RESULT Amphetamine Screen, U NEGATIVE Barbiturates Screen, U NEGATIVE Benzodiazepines Screen, U NEGATIVE Cannabinoids Screen, U REFER TO CONFIRMATION RESULT (A) Cocaine Metabolite Screen, U NEGATIVE Methadone Metabolite Screen, U NEGATIVE Morphine/Codeine Screen, U NEGATIVE Oxycodone Screen, U POSITIVE (A) COMMENT THE ABOVE SCREENING RESULTS ARE PRESUMPTIVE AND CAN ONLY BE USED FOR MEDICAL PURPOSES. CONFIRMATORY TESTING IS AVAILABLE UPON REQUEST. Cutoff Concentration URINE VALID INTERP NORMAL CREATININE JEREMIAH 116 NITRITE JEREMIAH 13 pH JEREMIAH 6.2 *Note: Due to a large number of results and/or encounters for the requested time period, some results have not been displayed. A complete set of results can be found in Results Review. Patient Phone Numbers Labs: Lab Results Component Value Date/Time CREAT 1.0 06/02/2024 12:42 PM CREAT 1.0 02/06/2020 04:58 AM POTASSIUM 4.4 06/02/2024 12:42 PM POTASSIUM 4.2 02/06/2020 04:58 AM TSH 1.40 03/16/2022 01:15 PM TSH 2.50 04/08/2019 04:25 PM TSH 2.74 11/21/1995 04:00 PM LDL 156 (H) 09/13/2023 10:37 AM LDL 95 02/03/2019 08:01 AM LDL 57 09/05/2017 07:57 AM ALT 17 09/07/2022 12:56 PM ALT 21 12/01/2019 04:42 PM HGBA1C 4.8 06/02/2024 12:42 PM HGBA1C 5.4 12/01/2019 04:42 PM documented in this encounter Plan of Treatment Upcoming Encounters Date Type Department Care Team (Late st Contact Info) Description 06/19/2024 10:54 AM EDT Hospital Encounter OR [facility] [place] [place], OPERATING ROOM [facility] [place] [place], [facility] [address] [place] [phone] Joseph Giordano MD [address] [place] [address] 06/19/2024 10:54 AM EDT - 06/19/2024 2:01 PM EDT Surgery OR [facility] [place] [place], OPERATING ROOM [facility] [place] [place], [facility] [address] [place] [address] Joseph Giordano MD [address] [place], [place] [id number] ARTHRODESIS SPINE POSTERIOR OR POSTERIOR LATERAL WITH LAMINECTOMY LUMBAR, COMBINED 07/03/2024 1:30 PM EDT Telemedicine [facility] [place] [address] [facility] [address] Roly Miller, [facility] [address] [facility] [phone] 07/14/2024 11:30 AM EDT Office Visit Orthopaedics Spine Surgery, [place] [address] [place] [phone] Suzette Alcala PA-C [address] [facility] [place] [address] 07/15/2024 2:00 PM EDT Telemedicine Psychiatry, [place] [address] [place] [address] Brooke Deluca CRNP [address] [place] [address] 07/23/2024 1:00 PM EDT Telemedicine Nutrition Services [address] [place] [address] Jasvir Johnson, RDN [address] [place] [address] 10/07/2024 2:40 PM EDT Telemedicine Endocrinology [address] [place] [address] [phone] Daniel Franco MD [address] [place] [address] 10/15/2024 3:30 PM EDT Office Visit Neurology [facility] [place] [address] [place] [address] Mariya Harding PA-C [address] [place] [address] 10/21/2024 12:10 PM EDT Office Visit Family Practice, [place] [address] [phone] Elida Lance DO [address] [place] [address] 02/03/2026 2:20 PM EST Office Visit Dermatology, [place] [address] [facility] [place] [phone] Yessi oMrton PA-C [address] [place] [address] [place] [address] Scheduled Procedures Name Priority Associated Diagnoses Date/Ti [...] Additional history exists CKD PHOS USE SMARTSET 58928 10/17/202410/02, 03/16/2022, 02/09/2021, Additional history exists GFR 12/02/2024 06/02/2024, 10/02, 10/03/2023, Additional history exists Cologuard 04/04/2025 04/04/2022, 03/05, 03/27/2022 Colorectal Cancer Screening 04/04/2025 Depression Monitoring 05/20/2025 05/20/2024 , 01/02/2024, 12/26/2023 CKD HGB USE SMARTSET 39890 06/02/202506/02, 06/02/2024, 10/03/2023, Additional history exists Diabetes [...] this encounter Medical Devices Implanted Type Area Table Machine Operator Device Identifier Shelf Expiration Date Model / Serial / Lot Graft Infuse Bone Sm [id number] - [id number] Implanted:Qt y: 1 on 02/22/2012 at OR [facility] [place] [place] N/A: Spine Lumbar [employer] : NEUROLOGIC PAIN 08/01/2014 [id number] / / [id number] Screw 6x45 Poly Si [id number] - [id number] Implanted:Qt y: 2 on 02/22/2012 at OR [facility] [place] [place] N/A: Spine Lumbar JNJ : [employer] [id number] / / Screw 7x35 Poly Si [id number] - [id number] Implanted:Qt y: 2 on 02/22/2012 at OR [facility] [place] [place] N/A: Spine Lumbar JNJ : [employer] [id number] / / Asif 5.5x55 Ti Prbnt [id number] - [id number] Implanted:Qt y: 2 on 02/22/2012 at OR [facility] [place] [place] N/A: Spine Lumbar JNJ : DEPU[employer] SPINE [id number] / / Screw Set Sng Inner [id number] - [id number] Implanted:Qt y: 4 on 02/22/2012 at OR [facility] [place] [place] N/A: Spine Lumbar JNJ : DEPU[employer] SPINE [id number] / / Cage 28x8 Leopard [id number] - [id number] Implanted:Qt y: 1 on 02/22/2012 at OR [facility] [place] [place] N/A: Spine Lumbar JNJ : [employer] [id number] / / Implant Brst Mod Cls Pro 360cc - [id number] Implanted:Qt y: 1 on 11/12/2012 at OR [facility] [place] [place] Right: Breast [employer] KRISSY 09/11/2017 350-73[facility] [place] [facility] / [id number] / [id number] Implant Brst Mod Cls Pro 360cc - [id number] Implanted:Qt y: 1 on 11/12/2012 at OR [facility] [place] [place] Left: Breast [employer] 08/12/2017 [id number] / [id number] / [id number] 4.0 X 14 Variable Self Starting Screw Implanted:Qt y: 4 on 02/05/2020 by Luis Eduardo Ross MD at OR [facility] N/A: Spine Cervical KWADWO [id number] / / 1 Level 20mm Fannin View Plate Implanted:Qt y: 1 on 02/05/2020 by Luis Eduardo Ross MD at OR [facility] N/A: Spine Cervical KWADWO [id number] / / [id number] ree Alcutian Implanted:Qt y: 1 on 02/05/2020 by Luis Eduardo Ross MD at OR [facility] N/A: Spine Cervical KWADWO [id number] / / Description:alctuian cage 2.5cc Vitoss Bimodal Foam Pack Implanted:Qt y: 1 on 02/05/2020 by Luis Eduardo Ross MD at OR [facility] N/A: Spine Cervical KWADWO [id number] 11/29/2020 [id number] / [id number] / [id number] Rick Wall - [id number] Implanted:Qt y: 1 on 08/31/2022 by Chico Perry MD at OR [facility] N/A: Vagina [employer] 08/10/2023 [id number] / / [id number] documented as of this encounter Advance Directives [...] and were consensually agreed upon. Care Teams Ethics Officer Relationship Specialty Start Date End Date Elida Lance DO [address] [place] [address] PCP - General Family Medicine 05/22/24 documented as of this encounter
--- OUTSIDE RECORDS SUMMARY | 2024-06-26 12:49 | External Medical Summary | Summary of Care ---
Author Name Unknown Organization [facility] Address [address] [place] [address] Phone [phone] Care Team Providers Care Rug Inspector Helper Name Role Phone Elida Lance DO Primary Care Provider [phone] Reason for Visit * Reason Comments H&P Surgery Hardware removal L5- S1, L4-5 laminectomy, PSF,PLIF Encounter Details Date Type Department Care Team (Late st Contact Info) Description 06/02/2024 11:30 AM EDT Office Visit Orthopaedics Spine Surgery, [place] [address] [place] [address] Suzette Alcala PA-C [address] [place] [address] Preoperative examination*; Spinal stenosis of lumbar region with neurogenic claudication; History of lumbar fusion Allergies Active Allergy Reactions Criticality Noted Date Comments Nsaids 02/01/2020 Hx gastric bypass Other Allergy (See Comments) Rash Medium 013 Dermabond prineo Penicillins 10/04/1999 Rash, last dose was in her 20's Sulfa Antibiotics 10/04/1999 Rash in her early 20's documented as of this encounter (statuses as of 06/02/2024) Medications MULTIVITAMINS PO CAPS Take 1 Capsule [...] Tablet 05/23/2024 2:24 PM EDT 5 Active documented as of this encounter (statuses as of 06/02/2024) Active Problems Problem Noted Date Diagnosed Date [...] disease), lumbar 11/21/19 12 [facility]ER Confirmation Research Other*[id number] 06/0 11/2009 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 B12 malabsorption s/p gastric bypass 07/14/2002 Allergic rhinitis 02/12/2002 Dyslipidemia, goal LDL below 130 12/04/2001 Chronic rhinitis HTN, goal below 140/90 Spinal stenosis, lumbar Spondylolisthesis documented as of this encounter (statuses as of 06/02/2024) Resolved Problems Problem Noted Date Diagnosed Date [...] as of this encounter (statuses as of 06/02/2024) Immunizations Name Administration Dates Next Due COVID-19 [...] Sign Reading Time Taken Comments Blood Pressure - - Pulse - - Temperature - - Respiratory Rate - - Oxygen Saturation - - Inhaled Oxygen Concentration - - Weight 57.7 kg (127 lb 1.6 oz) 06/02/2024 11:28 AM EDT Height 154.9 cm (5' 1") 06/02/2024 11:28 AM EDT Body Mass Index 24.02 06/02/2024 11:28 AM EDT documented in this encounter Functional Status [...] Info) Description 06/05/2024 12:30 PM EDT Telemedicine Chris, [place] [address] [facility] [place] [phone] Roly Miller, [facility] [address] [facility] [phone] 06/19/2024 10:54 AM EDT Hospital Encounter [facility], OPERATING ROOM [facility] [place] [address] [place] [phone] Joseph Giordano MD [address], [place] [phone] 06/19/2024 10:54 AM EDT - 06/19/2024 2:01 PM EDT Surgery [facility], OPERATING ROOM [place], [place] [facility] [address] [place] [phone] Joseph Giordano MD [address] [place] [address] ARTHRODESIS SPINE POSTERIOR OR POSTERIOR LATERAL WITH LAMINECTOMY LUMBAR, COMBINED 07/14/2024 11:30 AM EDT Office Visit Orthopaedics Spine Surgery, [place] [address] [place] [address] Suzette Alcala PA-C [address], [place] [phone] 07/15/2024 2:00 PM EDT Telemedicine Psychiatry, [place] [address] [place] [address] Brooke Deluca CRNP [address] [place] [address] 07/23/2024 1:00 PM EDT Telemedicine Nutrition Services [address] [place] [address] Jasvir Johnson, RDN [address] [facility] [address] [place] [address] 10/07/2024 2:40 PM EDT Telemedicine Endocrinology [address] [place] [address] Daniel Franco MD [address] [place] [address] 10/15/2024 3:30 PM EDT [facility] [place] [address] Mariya Harding PA-C [address] [place] [address] 10/21/2024 12:10 PM EDT Office Visit Family Practice, [place] [address] [facility] [place] [phone] Elida Lance DO [address] [facility] [place] [address] 02/03/2026 2:20 PM EST Office Visit Dermatology, [place] [address] [facility] [place] [phone] Yessi Morton PA-C [address] [place] [address] [place] [phone] Pending Results Name Type Priority Associated Diagnoses Date /Time CULTURE, URINE, QUANTITATIVE Lab Routine Preoperative examination 06/02/2024 12:42 PM EDT Scheduled Orders Name Type Priority Associated Diagnoses Orde r Schedule EKG EKG Routine Preoperative examination Ordered: 06/02/2024 Scheduled Procedures Name Priority Associated Diagnoses Date/Ti [...] Test 2006 Sigmoidoscopy 2006 Mammogram 08/09/2017 08/09/2016, 06/0 09/2015, 08/05/2014, Additional history exists Pneumococcal Vaccine: 50+ Years (3 of 3 - PCV20 or PCV21) 07/09/2021 07/09/2016, 08/21/2013 Colonoscopy 01/14/2022 01/15/2012, 01/15/2012 COVID-19 Vaccine ( season) 2023 12/08/2020, 11/17/2020 Albumin/Creatinine Ratio 03/21/2024 024, 02/03/2019, 09/05/2017, Additional history exists CKD PHOS USE SMARTSET 05654 10/17/202410/02, 03/16/2022, 02/09/2021, Additional history exists GFR 12/02/2024 06/02/2024, 10/02, 10/03/2023, Additional history exists Cologuard 04/04/2025 04/04/2022, 03/05, 03/27/2022 Colorectal Cancer Screening 04/04/2025 Depression Monitoring 05/20/2025 05/20/2024 , 01/02/2024, 12/26/2023 CKD HGB USE SMARTSET 67201 06/02/202506/02, 06/02/2024, 10/03/2023, Additional history exists Diabetes [...] this encounter Medical Devices Implanted Type Area Criminal Justice Teacher Device Identifier Shelf Expiration Date Model / Serial / Lot Graft Infuse Bone Sm [id number] - [id number] Implanted:Qt y: 1 on 02/22/2012 at [place] [facility] [place]/A: Spine Lumbar [employer] : NEUROLOGIC PAIN 08/01/2014 [id number] / / [id number] Screw 6x45 Poly Si [id number] - [id number] Implanted:Qt y: 2 on 02/22/2012 at [place] [facility] [place]/A: Spine Lumbar JNJ : ETH[employer] [id number] / / Screw 7x35 Poly Si [id number] - [id number] Implanted:Qt y: 2 on 02/22/2012 at [place] [facility] [place] N/A: Spine Lumbar JNJ : [employer] [id number] / / Asif 5.5x55 Ti Prbnt [id number] - [id number] Implanted:Qt y: 2 on 02/22/2012 at [place] [facility] [place] N/A: Spine Lumbar JNJ : DEPUY SPINE [id number] / / Screw Set Sng Inner [id number] - [id number] Implanted:Qt y: 4 on 02/22/2012 at [place] [facility] [place] N/A: Spine Lumbar JNJ : DEPUY SPINE [id number] / / Cage 28x8 Leopard [id number] - [id number] Implanted:Qt y: 1 on 02/22/2012 at [place] [facility] [place] N/A: Spine Lumbar JNJ : [employer] [id number] / / Implant Brst Mod Cls Pro 360cc - [id number] Implanted:Qt y: 1 on 11/12/2012 at [place] [facility] [place] Right: Breast MENTOR KRISSY 09/11/[address] [place] [address] / [id number] / [id number] Implant Brst Mod Cls Pro 360cc - [id number] Implanted:Qt y: 1 on 11/12/2012 at [place] [facility] [place] Left: Breast MENTOR KRISSY 08/12/[address] [place] [address] / [id number] / [id number] 4.0 X 14 Variable Self Starting Screw Implanted:Qt y: 4 on 02/05/2020 by Luis Eduardo Ross MD at OR [facility] N/A: Spine Cervical KWADWO [id number] / / 1 Level 20mm [place] View Plate Implanted:Qt y: 1 on 02/05/2020 by Luis Eduardo Ross MD at OR [facility] N/A: Spine Cervical KWADWO [id number] / / [id number] Alcutian Implanted:Qt y: 1 on 02/05/2020 by Luis Eduardo Ross MD at OR [facility] N/A: Spine Cervical KWADWO [id number] / / Description:alctuian cage 2.5cc Vitoss Bimodal Foam Pack Implanted:Qt y: 1 on 02/05/2020 by Luis Eduardo Ross MD at OR [facility] N/A: Spine Cervical KWADWO [id number] 11/29/2020 [id number] / [id number] / [id number] Sling Desara One - [id number] Implanted:Qt y: 1 on 08/31/2022 by Chico Prery MD at OR [facility] N/A: Vagina [employer] 08/10/2023 [id number] / / [id number] documented as of this encounter Procedures Procedure Name Priority Date/Time Associated Diagnosis Comments ANEMIA REFLEX CHEMISTRY HOLD Routine 06/02/2024 12:42 PM EDT Preoperative examination ANEMIA CBC Routine 06/02/2024 12:42 PM EDT Preoperative examination DIFFERENTIAL, AUTOMATED Routine 06/02/2024 12:42 PM EDT Preoperative examination DIFFERENTIAL, AUTOMATED Routine 06/02/2024 12:42 PM EDT Preoperative examination BASIC METABOLIC PANEL Routine 06/02/2024 12:42 PM EDT Preoperative examination PT INR Routine 06/02/2024 12:42 PM EDT Preoperative examination STAPH AUREUS PCR Routine 06/02/2024 12:4 0 PM EDT Preoperative examination documented in this encounter Results * ANEMIA REFLEX CHEMISTRY HOLD (06/02/2024 12:42 PM EDT) Blood Venous blood specimen / Unknown Venipuncture / Unknown 06/02/2024 12:42 PM EDT 06/02/2024 1:06 PM EDT Suzette Alcala PA-C LAB BLOOD ORDERABLES Final Result [facility] [address] [place] [address] * DIFFERENTIAL, AUTOMATED (06/02/2024 12:42 PM EDT) WBC 5.52 4.00 - 10.80 K/uL 06/02/2024 1:16 PM EDT [facility] Neutrophils % 62.6 40.0 - 75.0 % 06/02/2024 1:16 PM EDT [facility] Lymphocytes % 28.3 18.0 - 42.0 % 06/02/2024 1:16 PM EDT [facility] Monocytes % 6.2 1.0 - 11.0 % 06/02/2024 1:16 PM EDT [facility] Eosinophils % 2.0 0.0 - 6.0 % 06/02/2024 1:16 PM EDT [facility] Basophils % 0.5 0.0 - 2.0 % 06/02/2024 1:16 PM EDT LAB[facility] Immature Granulocytes % 0.4 0.0 - 2.0 % 06/02/2024 1:16 PM EDT [facility] Absolute Neutrophils 3.46 1.80 - 7.70 K/uL 06/02/2024 1:16 PM EDT LAB[facility] Absolute Lymphocytes 1.56 1.00 - 4.80 K/ul 06/02/2024 1:16 PM EDT LAB[facility] Absolute Monocytes 0.34 0.00 - 1.10 K/uL 06/02/2024 1:16 PM EDT [facility] Absolute Eosinophils 0.11 0.00 - 0.70 K/uL 06/02/2024 1:16 PM EDT LAB[facility] Absolute Basophils 0.03 0.00 - 0.20 K/uL 06/02/2024 1:16 PM EDT LAB[facility] Absolute Immature Granulocytes 0.02 0.00 - 0.20 K/uL 06/02/2024 1:16 PM EDT [facility] Blood Venous blood specimen / Unknown Venipuncture / Unknown 06/02/2024 12:42 PM EDT 06/02/2024 1:06 PM EDT Suzette Alcala PA-C LAB BLOOD ORDERABLES Final Result [facility] [address] [place] [address] * ANEMIA CBC (06/02/2024 12:42 PM EDT) WBC 5.52 4.00 - 10.80 K/uL 06/02/2024 1:16 PM EDT [facility] RBC 3.86 3.85 - 5.15 M/uL 06/02/2024 1:16 PM EDT [facility] HGB 12.2 12.0 - 15.3 g/dL 06/02/2024 1:16 PM EDT [facility] Comment: Anemia reflex testing triggers on a HGB < 12.0 for Females and HGB < 13.0 for Males in accordance with the WHO Anemia Guidelines Anemia reflex testing triggers on a HGB < 12.0 for Females and HGB < 13.0 for Males in accordance with the WHO Anemia Guidelines HCT 37.7 36.0 - 45.2 % 06/02/2024 1:16 PM EDT [facility] MCV 97.7 81.5 - 97.5 fL 06/02/2024 1:16 PM EDT [facility] MCH 31.6 27.0 - 34.0 pg 06/02/2024 1:16 PM EDT [facility] MCHC 32.4 32.0 - 36.0 g/dL 06/02/2024 1:16 PM EDT LABORATORY [facility] RDW 13.1 11.5 - 15.5 % 06/02/2024 1:16 PM EDT LABORATORY [facility] PLT 242 140 - 400 K/uL 06/02/2024 1:16 PM EDT LABORATORY [facility] MPV 9.0 6.6 - 11.1 fL 06/02/2024 1:16 PM EDT LABORATORY [facility] nRBCs 0 <=0 /100 WBCs 06/02/2024 1:16 PM EDT LABORATORY C Blood Venous blood specimen / Unknown Venipuncture / Unknown 06/02/2024 12:42 PM EDT 06/02/2024 1:06 PM EDT Suzette OTTO-C LAB BLOOD ORDERABLES Final Result LABORATORY [facility] [address] [place] [address] * ALBUMIN (06/02/2024 12:42 PM EDT) Albumin 4.1 3.8 - 5.0 g/dL 06/02/2024 1:37 PM EDT LABORATORY [facility] Blood Venous blood specimen / Unknown Venipuncture / Unknown 06/02/2024 12:42 PM EDT 06/02/2024 1:06 PM EDT Suzette OTTO-C LAB BLOOD ORDERABLES Final Result LABORATORY [facility] [address] [place] [address] * PROTEIN (06/02/2024 12:42 PM EDT) Protein 6.7 6.0 - 8.3 g/dL 06/02/2024 1:37 PM EDT [facility] Blood Venous blood specimen / Unknown Venipuncture / Unknown 06/02/2024 12:42 PM EDT 06/02/2024 1:06 PM EDT Suzette Alcala PA-C LAB BLOOD ORDERABLES Final Result LABORATORY [facility] [address] [place] [address] * (ABNORMAL) TOXICOLOGY, URINE SCREEN W/ CONFIRMATION (06/02/2024 12:42 PM EDT) [facility] Amphetamines Screen, U Negative Negative 06/02/2024 1:40 PM EDT LABORATORY [facility] Benzodiazepines Screen, U Negative Negative 06/02/2024 1:40 PM EDT LABORATORY [facility] Cannabinoids Screen, U Positive(A) Negative 06/02/2024 1:40 PM EDT LABORATORY [facility] Cocaine Metabolite Screen, U Negative Negative 06/02/2024 1:40 PM EDT LABORATORY [facility] Fentanyl Screen, U Negative Negative 2024 1:40 PM EDT LABORATORY [facility] Hydrocodone Screen, U Negative Negative 06/02/2024 1:40 PM EDT LABORATORY [facility] Methadone Metabolite Screen, U Negative Negative 06/02/2024 1:40 PM EDT LABORATORY [facility] Morphine/Codeine Screen, U Negative Negative 06/02/2024 1:40 PM EDT LABORATORY [facility] Oxycodone Screen, U Negative Negative 06/02/2024 1:40 PM EDT LABORATORY [facility] Urine Non-blood Collection / Unknown 06/02/2024 12:42 PM EDT 06/02/2024 1:03 PM EDT Narrative [facility] - 06/02/2024 1:40 PM EDT Cutoff Concentrations: Drug Level Amphetamines 500 ng/mL Benzodiazepines 100 ng/mL Cannabinoids 50 ng/mL Cocaine Metabolite 150 ng/mL Fentanyl 1 ng/mL Hydrocodone / Hydromorphone 300 ng/mL Methadone Metabolite 100 ng/mL Morphine / Codeine 300 ng/mL Oxycodone / Oxymorphone 100 ng/mL Screening results are presumptive and can only be used for medical purposes. Positive screening results are reflexed to confirmatory testing. Suzette Alcala PA-C LAB URINE ORDERABLES Final Result Performing Organization Address [facility] de Phone Number LABORATORY [facility] [address] [place] [address] * PT INR (06/02/2024 12:42 PM EDT) Prothrombin Time 12.8 11.6 - 15.2 seconds 06/02/2024 1:28 PM EDT LABORATORY [facility] INR 1.0 0.8 - 1.2 06/02/2024 1:28 PM EDT LABORATORY [facility] Blood Venous blood specimen / Unknown Venipuncture / Unknown 06/02/2024 12:42 PM EDT 06/02/2024 1:06 PM EDT Narrative LABORATORY [facility] - 06/02/2024 1:28 PM EDT Warfarin Therapy INR: 2.0-3.0 conventional anticoagulation INR: 2.5-3.5 high intensity anticoagulation Suzette Alcala PA-C LAB BLOOD ORDERABLES Final Result Performing Organization Address [facility] de Phone Number LABORATORY [facility] [address] [place] [address] * (ABNORMAL) BASIC METABOLIC PANEL (06/02/2024 12:42 PM EDT) Pathologist [facility] [place] BUN 11 6 - 20 mg/dL 06/02/2024 1:37 PM EDT LABORATORY [facility] CREATININE 1.0 0.5 - 1.0 mg/dL 06/02/2024 1:37 PM EDT LABORATORY [facility] EGFR 61 >=60 mL/min 06/02/2024 1:37 PM EDT LABORATORY [facility] Comment:eGFR is calculated b ased on the CKD-EPI 2020 equation. SODIUM 134(L) 135 - 146 mmol/L 06/02/2024 1:37 PM EDT [facility] POTASSIUM 4.4 3.5 - 5.1 mmol/L 06/02/2024 1:37 PM EDT LABORATORY [facility] CHLORIDE 99 98 - 107 mmol/L 06/02/2024 1:37 PM EDT LABORATORY [facility] CO2 27 22 - 32 mmol/L 06/02/2024 1:37 PM EDT LABORATORY [facility] ANION GAP 8 7 - 15 mmol/L 06/02/2024 1:37 PM EDT LABORATORY [facility] GLUCOSE 84 70 - 120 mg/dL 06/02/2024 1:37 PM EDT LABORATORY [facility] CALCIUM 9.8 8.4 - 10.2 mg/dL 06/02/2024 1:37 PM EDT LABORATORY [facility] Blood Venous blood specimen / Unknown Venipuncture / Unknown 06/02/2024 12:42 PM EDT 06/02/2024 1:06 PM EDT [facility] Komal Alcala PA-C LAB BLOOD ORDERABLES Final Result Performing Organization Address [facility] Co de Phone Number LABORATORY [address] [address] * HEMOGLOBIN A1C (06/02/2024 12:42 PM EDT) [facility] Hemoglobin A1C 4.8 4.0 - 5.6 % 06/02/2024 1:25 PM EDT LABORATORY [facility] Comment:The use of HbA1c to monitor glycemic status is based on normal hemoglobin and HbA composition. This test should not be used in patients with abnormal hemoglobin that affects the half life of the red blood cell or the in vivo glycation rates. Estimated Average Glucose 91 <126 mg/dL 06/02/2024 1:25 PM EDT LABORATORY [facility] Blood Venous blood specimen / Unknown Venipuncture / Unknown 06/02/2024 12:42 PM EDT 06/02/2024 1:06 PM EDT [facility] LAB BLOOD ORDERABLES Final Result Performing Organization Address [facility] Co de Phone Number LABORATORY [facility] [address] [place] [address] * (ABNORMAL) STAPH AUREUS PCR (06/02/2024 12:40 PM EDT) Pathologist [facility] [place] MRSA PCR Result Positive( A) Negative 06/02/2024 3:19 PM EDT LABORATORY [facility] Comment:Methicillin resistan t Staphylococcus aureus detected by PCR (amplified probe). MRSA-This patient may require isolation. Please refer to Infection Control isolation policy. Staphylococcus aureus PCR Result Positive( A) Negative 06/02/2024 3:19 PM EDT LABORATORY [facility] Comment:Staphylococcus aureu s detected by PCR (amplified probe). Upper Respiratory Swab of internal nose / Unknown Non-blood Collection / Unknown 06/02/2024 12:40 PM EDT 06/02/2024 1:25 PM EDT Suzette Alcala PA-C LAB MICRO - GENERAL ORDERABLES Final Result LABORATORY [facility] [address] [place] [address] documented in this encounter Visit Diagnoses Diagnosis Spinal stenosis, lumbar- Primary Spinal stenosis, lumbar region, without neurogenic claudication Preoperative examination- Primary Preoperative examination, unspecified Spinal stenosis of lumbar region with neurogenic claudication Spinal stenosis, lumbar region, with neurogenic claudication History of lumbar fusion Spinal stenosis of lumbar region with neurogenic claudication Spinal stenosis, lumbar region, with neurogenic claudication documented in this encounter Advance Directives * [...] and were consensually agreed upon. Care Teams Rug Inspector Helper Relationship Specialty Start Date End Date Elida Lance DO [address] [place] [address] PCP - General Family Medicine 05/22/24 documented as of this encounter
--- OUTSIDE RECORDS SUMMARY | 2024-06-26 12:49 | External Medical Summary | Summary of Care ---
Author Name Unknown Organization [facility] Address [address] [place] [address] Phone [phone] Care Team Providers Care Unemployment Insurance Director Name Role Phone Elida Lance DO Primary Care Provider Reason for Visit * Reason Comments H&P Surgery Hardware removal L5- S1, L4-5 laminectomy, PSF,PLIF Encounter Details Date Type Department Care Team (Late st Contact Info) Description 06/02/2024 11:30 AM EDT Office Visit Orthopaedics Spine Surgery, [place] [address] [place] [address] Suzette Alcala PA-C [address] [place] [address] Preoperative examination*; Spinal stenosis of [...] disease), lumbar 11/21/19 12 [facility] Confirmation Research Other*[id number] 06/0 11/2009 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 B12 [...] Description 06/05/2024 12:30 PM EDT Telemedicine [place], [place] [address] [facility] [place] [phone] Roly Miller, [facility] [address] [place] [address] 06/19/2024 10:54 AM EDT Hospital Encounter [facility], OPERATING ROOM [facility] [address] [place] [phone] Joseph Giordano MD [address], [place] [phone] 06/19/2024 10:54 AM EDT - 06/19/2024 2:01 PM EDT Surgery OR [facility], OPERATING ROOM [facility], [place] [address] [place] [phone] Joseph Giordano MD [address] [place] [address] ARTHRODESIS SPINE POSTERIOR OR POSTERIOR LATERAL WITH LAMINECTOMY LUMBAR, COMBINED 07/14/2024 11:30 AM EDT Office Visit Orthopaedics Spine Surgery, [place] [address] [place] [address] Suzette Alcala PA-C [address], [place] [phone] 07/15/2024 2:00 PM EDT Telemedicine Psychiatry, [place] [address] [place] [address] Brooke Deluca CRNP [address] [place] [address] 07/23/2024 1:00 PM EDT Telemedicine Nutrition Services [address] [place] [address] Jasvir Johnson, RDN [address] [facility] [place] [address] 10/07/2024 2:40 PM EDT Telemedicine Endocrinology [address] [place] [address] Daniel Franco MD [address] [place] [address] 10/15/2024 3:30 PM EDT [facility] [address] [facility] [place] [address] Mariya Harding PA-C [address] [place] [address] 10/21/2024 12:10 PM EDT Office Visit Family Practice, [place] [address] [facility] [place] [phone] Elida Lance DO [address] [facility] [place] [address] 02/03/2026 2:20 PM EST Office Visit Dermatology, [place] [address] [facility] [place] [phone] Yessi Morton PA-C [address] [place] [address] [place] [address] Pending Results Name Type Priority Associated Diagnoses [...] Additional history exists CKD PHOS USE SMARTSET 36698 10/17/202410/02, 03/16/2022, 02/09/2021, Additional history exists GFR 12/02/2024 06/02/2024, 10/02, 10/03/2023, Additional history exists Cologuard 04/04/2025 04/04/2022, 03/05, 03/27/2022 Colorectal Cancer Screening 04/04/2025 Depression Monitoring 05/20/2025 05/20/2024 , 01/02/2024, 12/26/2023 CKD HGB USE SMARTSET 83623 06/02/202506/02, 06/02/2024, 10/03/2023, Additional history exists Diabetes [...] this encounter Medical Devices Implanted Type Area Water Resources Project Manager Device Identifier Shelf Expiration Date Model / Serial / Lot Graft Infuse Bone Sm [id number] - [id number] Implanted:Qt y: 1 on 02/22/2012 at [place] [facility] [place]/A: Spine Lumbar MEDTRONIC : NEUROLOGIC PAIN 08/01/2014 [id number] / / [id number] Screw 6x45 Poly Si [id number] - [id number] Implanted:Qt y: 2 on 02/22/2012 at [place] [facility] N/A: Spine Lumbar JNJ : ETHICON CARDIOVATIONS [id number] / / Screw 7x35 Poly Si [id number] - [id number] Implanted:Qt y: 2 on 02/22/2012 at [place] [facility] N/A: Spine Lumbar JNJ : ETHICON CARDIOVATIONS [id number] / / Asif 5.5x55 Ti Prbnt [id number] - [id number] Implanted:Qt y: 2 on 02/22/2012 at [place] [facility] N/A: Spine Lumbar JNJ : DEPUY SPINE [id number] / / Screw Set Sng Inner [id number] - [id number] Implanted:Qt y: 4 on 02/22/2012 at [place] [facility] N/A: Spine Lumbar JNJ : DEPUY SPINE [id number] / / Cage 28x8 Leopard [id number] - [id number] Implanted:Qt y: 1 on 02/22/2012 at [place] [facility] N/A: Spine Lumbar JNJ : ETHICON CARDIOVATIONS [id number] / / Implant Brst Mod Cls Pro 360cc - [id number] Implanted:Qt y: 1 on 11/12/2012 at [place] [facility] Right: Breast MENTOR KRISSY 09/11/[address] [place] [address] / [id number] / [id number] Implant Brst Mod Cls Pro 360cc - [id number] Implanted:Qt y: 1 on 11/12/2012 at [place] [facility] Left: Breast MENTOR KRISSY 08/12/[address] [place] [address] / [id number] / [id number] 4.0 X 14 Variable Self Starting Screw Implanted:Qt y: 4 on 02/05/2020 by Luis Eduardo Ross MD at OR [facility] N/A: Spine Cervical KWADWO [id number] / / 1 Level 20mm [place] View Plate Implanted:Qt y: 1 on 02/05/2020 by Luis Eduardo Ross MD at OR [facility] N/A: Spine Cervical KWADWO [id number] / / [id number] Alcutian Implanted:Qt y: 1 on 02/05/2020 by Luis Eduardo Ross MD at OR [facility] N/A: Spine Cervical KWADWO [id number] / / Description:alctuian cage 2.5cc Vitoss Bimodal Foam Pack Implanted:Qt y: 1 on 02/05/2020 by Luis Eduardo Ross MD at OR [facility] N/A: Spine Cervical KWADWO [id number] 11/29/2020 [id number] / [id number] / [id number] Sling Desara One - [id number] Implanted:Qt y: 1 on 08/31/2022 by Chico Perry MD at OR [facility] N/A: Vagina [employer] 08/10/2023 [id number] / / [id number] documented as of this encounter Procedures Procedure [...] BLOOD ORDERABLES Final Result LABORATORY [facility] [address] [place] [address] * DIFFERENTIAL, AUTOMATED (06/02/2024 12:42 [...] ORDERABLES Final Result LAB[facility]ATORY [facility] [address] [place] [address] * ANEMIA CBC (06/02/2024 12:42 [...] 36.0 g/dL 06/02/2024 1:16 PM EDT LABORATORY [facility] RDW 13.1 11.5 - 15.5 % 06/02/2024 1:16 PM EDT LABORATORY [facility] PLT 242 140 - 400 K/uL 06/02/2024 1:16 PM EDT LABORATORY [facility] MPV 9.0 6.6 - 11.1 fL 06/02/2024 1:16 PM EDT LABORATORY [facility] nRBCs 0 <=0 /100 WBCs 06/02/2024 1:16 PM EDT LABORATORY C Blood Venous blood specimen / Unknown Venipuncture / Unknown 06/02/2024 12:42 PM EDT 06/02/2024 1:06 PM EDT Suzette OTTO-C LAB BLOOD ORDERABLES Final Result LABORATORY [facility] [address] [place] [address] * ALBUMIN (06/02/2024 12:42 PM EDT) Albumin 4.1 3.8 - 5.0 g/dL 06/02/2024 1:37 PM EDT LABORATORY [facility] Blood Venous blood specimen / Unknown Venipuncture / Unknown 06/02/2024 12:42 PM EDT 06/02/2024 1:06 PM EDT Suzette OTTO-C LAB BLOOD ORDERABLES Final Result LABORATORY [facility] [address] [place] [address] * PROTEIN (06/02/2024 12:42 PM EDT) Protein 6.7 6.0 - 8.3 g/dL 06/02/2024 1:37 PM EDT LABORATORY [facility] Blood Venous blood specimen / Unknown Venipuncture / Unknown 06/02/2024 12:42 PM EDT 06/02/2024 1:06 PM EDT Suzette Alcala PA-C LAB BLOOD ORDERABLES Final Result LABORATORY [facility] [address] [place] [address] * (ABNORMAL) TOXICOLOGY, URINE SCREEN W/ CONFIRMATION (06/02/2024 12:42 PM EDT) [facility] Amphetamines Screen, U Negative Negative 06/02/2024 1:40 PM EDT LABORATORY [facility] Benzodiazepines Screen, U Negative Negative 06/02/2024 1:40 PM EDT LABORATORY [facility] Cannabinoids Screen, U Positive(A) Negative 06/02/2024 1:40 PM EDT LABORATORY [facility] Cocaine Metabolite Screen, U Negative Negative 06/02/2024 1:40 PM EDT LABORATORY [facility] Fentanyl Screen, U Negative Negative 2024 1:40 PM EDT LABORATORY [facility] Hydrocodone Screen, U Negative Negative 06/02/2024 1:40 PM EDT LABORATORY [facility] Methadone Metabolite Screen, U Negative Negative 06/02/2024 1:40 PM EDT LABORATORY [facility] Morphine/Codeine Screen, U Negative Negative 06/02/2024 1:40 PM EDT LABORATORY [facility] Oxycodone Screen, U Negative Negative 06/02/2024 1:40 PM EDT LABORATORY [facility] Urine Non-blood Collection / Unknown 06/02/2024 12:42 [...] URINE ORDERABLES Final Result Performing Organization Address [facility] de Phone Number LABORATORY [facility] [address] [place] [address] * PT INR (06/02/2024 12:42 PM EDT) Prothrombin Time 12.8 11.6 - 15.2 seconds 06/02/2024 1:28 PM EDT LABORATORY [facility] INR 1.0 0.8 - 1.2 06/02/2024 1:28 PM EDT LABORATORY [facility] Blood Venous blood specimen / Unknown Venipuncture / Unknown 06/02/2024 12:42 PM EDT 06/02/2024 1:06 PM EDT Narrative LABORATORY [facility] - 06/02/2024 1:28 PM EDT Warfarin Therapy INR: 2.0-3.0 conventional anticoagulation INR: 2.5-3.5 high intensity anticoagulation Suzette Alcala PA-C LAB BLOOD ORDERABLES Final Result Performing Organization Address [facility] de Phone Number LABORATORY [facility] [address] [place] [address] * (ABNORMAL) BASIC METABOLIC PANEL (06/02/2024 12:42 PM EDT) Pathologist [facility] BUN 11 6 - 20 mg/dL 06/02/2024 1:37 PM EDT LABORATORY [facility] CREATININE 1.0 0.5 - 1.0 mg/dL 06/02/2024 1:37 PM EDT LABORATORY [facility] EGFR 61 >=60 mL/min 06/02/2024 1:37 PM EDT LABORATORY [facility] Comment:eGFR is calculated b ased on the CKD-EPI 2020 equation. SODIUM 134(L) 135 - 146 mmol/L 06/02/2024 1:37 PM EDT LABORATORY [facility] POTASSIUM 4.4 3.5 - 5.1 mmol/L 06/02/2024 1:37 PM EDT LABORATORY [facility] CHLORIDE 99 98 - 107 mmol/L 06/02/2024 1:37 PM EDT LABORATORY [facility] CO2 27 22 - 32 mmol/L 06/02/2024 1:37 PM EDT LABORATORY [facility] ANION GAP 8 7 - 15 mmol/L 06/02/2024 1:37 PM EDT LABORATORY [facility] GLUCOSE 84 70 - 120 mg/dL 06/02/2024 1:37 PM EDT LABORATORY [facility] CALCIUM 9.8 8.4 - 10.2 mg/dL 06/02/2024 1:37 PM EDT LABORATORY [facility] Blood Venous blood specimen / Unknown Venipuncture / Unknown 06/02/2024 12:42 PM EDT 06/02/2024 1:[address] [facility] Komal Alcala PA-C LAB BLOOD ORDERABLES Final Result Performing Organization Address [facility] Co de Phone Number LABORATORY [address] [address] * HEMOGLOBIN A1C (06/02/2024 12:42 PM EDT) [facility] Hemoglobin A1C 4.8 4.0 - 5.6 % 06/02/2024 1:25 PM EDT LABORATORY [facility] Comment:The use of HbA1c to monitor glycemic status is based on normal hemoglobin and HbA composition. This test should not be used in patients with abnormal hemoglobin that affects the half life of the red blood cell or the in vivo glycation rates. Estimated Average Glucose 91 <126 mg/dL 06/02/2024 1:25 PM EDT LABORATORY [facility] Blood Venous blood specimen / Unknown Venipuncture / Unknown 06/02/2024 12:42 PM EDT 06/02/2024 1:06 PM EDT [facility] LAB BLOOD ORDERABLES Final Result Performing Organization Address [facility] Co de Phone Number LABORATORY [facility] [address] [place] [address] * (ABNORMAL) STAPH AUREUS PCR (06/02/2024 12:40 PM EDT) Pathologist [facility] MRSA PCR Result Positive( A) Negative 06/02/2024 3:19 PM EDT LABORATORY [facility] Comment:Methicillin resistan t Staphylococcus aureus detected by PCR (amplified probe). MRSA-This patient may require isolation. Please refer to Infection Control isolation policy. Staphylococcus aureus PCR Result Positive( A) Negative 06/02/2024 3:19 PM EDT LABORATORY [facility] Comment:Staphylococcus aureu s detected by PCR (amplified probe). Upper Respiratory Swab of internal nose / Unknown Non-blood Collection / Unknown 06/02/2024 12:40 PM EDT 06/02/2024 1:25 PM EDT Suzette Alcala PA-C LAB MICRO - GENERAL ORDERABLES Final Result LABORATORY [facility] [address] [place] [address] documented in this encounter Visit [...] and were consensually agreed upon. Care Teams Unemployment Insurance Director Relationship Specialty Start Date End Date Elida Lance DO [address] [place] [id number] PCP - General Family Medicine 05/22/24 documented as of this encounter
--- OUTSIDE RECORDS SUMMARY | 2024-06-26 12:49 | External Medical Summary | Summary of Care ---
Author Name Unknown Organization [facility] Address [address] [place] [address] Phone [phone] Care Team Providers Care Pattern Drum Maker Name Role Phone Elida Lance DO Primary Care Provider Reason for Visit * Reason Comments Outpatient Testing Encounter Details Date Type Department Care Team (Late st Contact Info) Description 06/02/2024 1:00 PM EDT Laboratory Outpatient Laboratory, [place] [address] [place] [address] [place], Lab B1a [address] [place] [address] Preoperative examination Allergies Active Allergy Reactions Criticality Noted Date [...] disease), lumbar 11/21/19 12 [facility] Confirmation Research Other*[id number] 06/0 11/2009 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 (Household - for ages [...] Info) Description 06/05/2024 12:30 PM EDT Telemedicine [facility] [address] [place] [phone] Roly Miller, [facility] [address] [place] [phone] 06/19/2024 10:54 AM EDT Hospital Encounter [place] [facility] [place] [place], OPERATING ROOM [facility] [place] [place], [place] GARCIA [address] [place] [address] Joseph Giordano MD [address] [place] [address] 06/19/2024 10:54 AM EDT - 06/19/2024 2:01 PM EDT Surgery OR [facility] [place] [place], OPERATING ROOM [facility] [place] [address] [place] [address] Joseph Giordano MD [address] [place], [place] [phone] ARTHRODESIS SPINE POSTERIOR OR POSTERIOR LATERAL WITH LAMINECTOMY LUMBAR, COMBINED 07/14/2024 11:30 AM EDT Office Visit Orthopaedics Spine Surgery, [place] [address] [place] [phone] Suzette Alcala PA-C [address] [place], [place] [phone] 07/15/2024 2:00 PM EDT Telemedicine Psychiatry, [place] [address] [place] [phone] Brooke Deluca CRNP [address] [place] [address] 07/23/2024 1:00 PM EDT Telemedicine Nutrition Services [address] [place] [address] Jasvir Johnson, RDN [facility] [place] [address] 10/07/2024 2:40 PM EDT Telemedicine Endocrinology [address] [place] [phone] Daniel Franco MD [address] [phone] 10/15/2024 3:30 PM EDT Office Visit Neu[facility] [place] [address] [place] [address] Mariya Harding PA-C [address] [place] [address] 10/21/2024 12:10 PM EDT Office Visit [facility] [address] [facility] [place] [phone] Elida Lance DO 226 [facility] [place] [address] 02/03/2026 2:20 PM EST Office Visit Dermatology, [address] [place] [phone] Yessi Morton PA-C [address] [place] [address] [place] [address] Pending Results Name Type Priority Associated Diagnoses Date /Time EXTRA URINE ALIQUOT Lab Routine Preoperative examination 06/02/2024 12:42 PM EDT THC METABOLITE, URINE CONFIRMATION Lab Routine Preoperative examination 06/02/2024 12:42 PM EDT Scheduled Procedures Name Priority Associated Diagnoses Date/Ti [...] Additional history exists CKD PHOS USE SMARTSET 84423 10/17/202410/02, 03/16/2022, 02/09/2021, Additional history exists GFR 12/02/2024 06/02/2024, 10/02, 10/03/2023, Additional history exists Cologuard 04/04/2025 04/04/2022, 03/05, 03/27/2022 Colorectal Cancer Screening 04/04/2025 Depression Monitoring 05/20/2025 05/20/2024 , 01/02/2024, 12/26/2023 CKD HGB USE SMARTSET 39293 06/02/202506/02, 06/02/2024, 10/03/2023, Additional history exists Diabetes [...] this encounter Medical Devices Implanted Type Area Theater Education Teacher Device Identifier Shelf Expiration Date Model / Serial / Lot Graft Infuse Bone Sm [id number] - [id number] Implanted:Qt y: 1 on 02/22/2012 at OR [facility] [place] N/A: Spine Lumbar [employer] : NEUROLOGIC PAIN 08/01/2014 [id number] / / [id number] Screw 6x45 Poly Si [id number] - [id number] Implanted:Qt y: 2 on 02/22/2012 at OR [facility] [place] N/A: Spine Lumbar JNJ : ETHICON CARDIOVATIONS [id number] / / Screw 7x35 Poly Si [id number] - [id number] Implanted:Qt y: 2 on 02/22/2012 at OR [facility] [place] N/A: Spine Lumbar JNJ : ETHICON CARDIOVATIONS [id number] / / Asif 5.5x55 Ti Prbnt [id number] - [id number] Implanted:Qt y: 2 on 02/22/2012 at OR [facility] [place] N/A: Spine Lumbar JNJ : DEPUY SPINE [id number] / / Screw Set Sng Inner [id number] - [id number] Implanted:Qt y: 4 on 02/22/2012 at OR [facility] [place] N/A: Spine Lumbar JNJ : DEPUY SPINE [id number] / / Cage 28x8 Leopard [id number] - [id number] Implanted:Qt y: 1 on 02/22/2012 at OR [facility] [place] N/A: Spine Lumbar JNJ : ETHICON CARDIOVATIONS [id number] / / Implant Brst Mod Cls Pro 360cc - [id number] Implanted:Qt y: 1 on 11/12/2012 at OR [facility] [place] Right: Breast M[employer] KRISSY 09/11/2017 350-7360 / [id number] / [id number] Implant Brst Mod Cls Pro 360cc - [id number] Implanted:Qt y: 1 on 11/12/2012 at OR [facility] [place] Left: Breast M[employer] KRISSY 08/12/2017 350-7360 / [id number] / [id number] 4.0 X 14 Variable Self Starting Screw Implanted:Qt y: 4 on 02/05/2020 by Luis Eduardo Ross MD at OR [facility] N/A: Spine Cervical KWADWO [id number] / / Level 20mm [place] View Plate Implanted:Qt y: 1 on 02/05/2020 by Luis Eduardo Ross MD at OR [facility] N/A: Spine Cervical KWADWO [id number] / / [id number] Alcutian Implanted:Qt y: 1 on 02/05/2020 by Luis Eduardo Ross MD at OR [facility] N/A: Spine Cervical KWADWO [id number] / / Description:alctuian cage 2.5cc Vitoss Bimodal Foam Pack Implanted:Qt y: 1 on 02/05/2020 by Luis Eduardo Ross MD at OR [facility] N/A: Spine Cervical KWADWO [id number] 11/29/2020 8631-1555 / [id number] / [id number] Sling Desara One - [id number] Implanted:Qt y: 1 on 08/31/2022 by Chico Perry MD at OR [facility] N/A: Vagina [employer] 08/10/2023 [id number] / / [id number] documented as of this encounter Procedures Procedure Name Priority Date/Time Associated Diagnosis Comments TOXICOLOGY, URINE SCREEN W/ CONFIRMATION Routine 06/02/2024 12:42 PM EDT Preoperative examination HEMOGLOBIN A1C Routine 06/02/2024 12:42 PM EDT Preoperative examination PROTEIN Routine 06/02/2024 12:42 PM EDT Preoperative examination ALBUMIN Routine 06/02/2024 12:42 PM EDT Preoperative examination documented in this encounter Results * ALBUMIN (06/02/2024 12:42 PM EDT) Albumin 4.1 3.8 - 5.0 g/dL 06/02/2024 1:37 PM EDT LABORATORY [facility] [place] [place] Blood Venous blood specimen / Unknown Venipuncture / Unknown 06/02/2024 12:42 PM EDT 06/02/2024 1:06 PM EDT us Suzette Alcala PA-C LAB BLOOD ORDERABLES Final Result LAB[facility]ORY [facility] [address] [place] [address] * PROTEIN (06/02/2024 12:42 PM EDT) Protein 6.7 6.0 - 8.3 g/dL 06/02/2024 1:37 PM EDT LABORATORY [facility] [place] [place] Blood Venous blood specimen / Unknown Venipuncture / Unknown 06/02/2024 12:42 PM EDT 06/02/2024 1:06 PM EDT Suzette Alcala PA-C LAB BLOOD ORDERABLES Final Result LABORATORY [address] [address] * (ABNORMAL) TOXICOLOGY, URINE SCREEN W/ CONFIRMATION (06/02/2024 12:42 PM EDT) Amphetamines Screen, U Negative Negative 06/02/2024 1:40 PM EDT LABORATORY [facility] [place] [place] Benzodiazepines Screen, U Negative Negative 06/02/2024 1:40 PM EDT LABORATORY [facility] [place] [place] Cannabinoids Screen, U Positive(A) Negative 06/02/2024 1:40 PM EDT LABORATORY [facility] [place] [place] Cocaine Metabolite Screen, U Negative Negative 06/02/2024 1:40 PM EDT LABORATORY [facility] [place] [place] Fentanyl Screen, U Negative Negative 2024 1:40 PM EDT LABORATORY C Hydrocodone Screen, U Negative Negative 06/02/2024 1:40 PM EDT LABORATORY [facility] [place] [place] Methadone Metabolite Screen, U Negative Negative 06/02/2024 1:40 PM EDT LABORATORY [facility] [place] [place] Morphine/Codeine Screen, U Negative Negative 06/02/2024 1:40 PM EDT LABORATORY C Oxycodone Screen, U Negative Negative 06/02/2024 1:40 PM EDT LABORATORY [facility] [place] [place] Urine Non-blood Collection / Unknown 06/02/2024 12:42 [...] URINE ORDERABLES Final Result Performing Organization Address [facility] de Phone Number LABORATORY [facility] [place] [place] [address] [place] [address] * HEMOGLOBIN A1C (06/02/2024 12:42 PM EDT) Pathologist [facility] Hemoglobin A1C 4.8 4.0 - 5.6 % 06/02/2024 1:25 PM EDT LABORATORY [facility] Comment:The use of HbA1c to monitor glycemic status is based on normal hemoglobin and HbA composition. This test should not be used in patients with abnormal hemoglobin that affects the half life of the red blood cell or the in vivo glycation rates. Estimated Average Glucose 91 <126 mg/dL 06/02/2024 1:25 PM EDT LABORATORY [facility] [place] [place] Blood Venous blood specimen / Unknown Venipuncture / Unknown 06/02/2024 12:42 PM EDT 06/02/2024 1:06 PM EDT Suzette Alcala PA-C LAB BLOOD ORDERABLES Final Result Performing Organization Address [facility] Phone Number LABORATORY [address] [address] documented in this encounter Visit Diagnoses Diagnosis Spinal stenosis, lumbar- Primary Spinal stenosis, lumbar region, without neurogenic claudication Preoperative examination Preoperative examination, unspecified Spinal stenosis of lumbar [...] and were consensually agreed upon. Care Teams Pattern Drum Maker Relationship Specialty Start Date End Date Elida Lance DO [address] [id number] PCP - General Family Medicine 05/22/24 documented as of this encounter
--- OUTSIDE RECORDS SUMMARY | 2024-06-26 12:49 | External Medical Summary | Summary of Care ---
Author Name Unknown Organization [facility] Address [address] [facility] [place] [address] Phone [phone] Care Team Providers Care Horser Up Name Role Phone Elida Lance DO Primary Care Provider Reason for Visit * Reason Comments Follow Up Anxiety Depression * - Authorized Specialty Diagnoses / Procedures Referred By Traci rizzo Referred To Contact Referral ID Status Reason Start Date Expiration Date V isits Requested Visits Authorized [id number] Authorized 11/03/2023 11/01/2024 [id number] Encounter Details Date Type Department Care Team (Late st Contact Info) Description 06/05/2024 12:30 PM EDT Telemedicine Psychology, [place] [address] [place] [address] Roly Miller, [facility] [address] [place] [address] Borderline personality disorder (HCC)* Allergies Active Allergy Reactions Criticality Noted Date Comments Nsaids 02/01/2020 Hx gastric bypass Other Allergy (See Comments) Rash Medium 013 Dermabond prineo Penicillins 10/04/1999 Rash, last dose was in her 20's Sulfa Antibiotics 10/04/1999 Rash in her early 20's documented as of this encounter (statuses as of 06/05/2024) Medications MULTIVITAMINS PO CAPS Take 1 Capsule [...] as of this encounter (statuses as of 06/05/2024) Active Problems Problem Noted Date Diagnosed Date [...] disease), lumbar 11/21/19 12 MEYER Confirmation Research Other*[id number] /11/2009 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 I was not in a hospital or clinic location. After connecting through televideo, patient was verified with two unique identifiers. Patient (or authorized legal pharmaceutical representative) was then informed that this was a Telemedicine visit and being conducted confidentially over secure lines. Methods to assure confidentiality were taken. Patient acknowledged consent and understanding of privacy and security of the Telemedicine visit. The patient agreed to participate. Start Time: 12:18 pm Stop Time: 12:54 pm Total direct time: 36 minutes BEHAVIORAL MEDICINE RETURN VISIT PROGRESS NOTE Psychology, [place] [address] [place] [address] 06/05/2024 12:18 PM TYPE OF VISIT: Individual DIAGNOSIS: Borderline personality disorder (HCC) (Primary) REASON FOR SESSION: Individual therapy Session #: 26 SESSION FOCUS: depression and anxiety NOTES: Therapist met with patient to complete an individual session. Patient processed depression and anxiety. Patient denied any SI/HI. Patient Patient denied any self-harm. Patient stated, "Increased back pain as I get closer to the surgery". Patient reported pointed surgery is on Good Saturday and her parent's anniversary and hopes they are good omens. Patient reported she made the list and went to her pre-surgery appointment on June 02. Patient hopes to go to rehab following the surgery. Patient reported forgetting specific words, attributing it to increased physical pain. Patient reported she wendy with this via humor and laughing. Patient stated she reconnected with her son and lent him her car and he, "Brought it back when the I needed it." Patient reported her [id number]-yszp-yqd granddaughter is coming next week to help the patient arrange her apartment. Patient stated, "My only anxiety is about when I get home and what will happen". Patient and therapist identified the following strengths that will aid in treatment: resilient Patient and therapist identified the following needs: coping with depression and anxiety MENTAL STATUS AND BEHAVIORAL OBSERVATIONS: Appearance: within normal limits Behavior: labile Speech: normal pitch, rate and volume Affect: Congruent with content of conversation Thought Process: within normal limits and goal directed Thought Content: within normal limits Intellectual Function: within normal limits Sensorium: alert and oriented to person, place, time and situation Cognition: grossly intact Insight/Judgment: good PROGRESS TOWARDS GOALS: Patient reported the same level of depression and the same level of anxietysince the last session with this junior technical writer. Goal: Improved self-management of depression and anxiety Objective Measures: Patient Health Questionnaire 9 & Generalized Anxiety Disorder 7 Over the last 2 weeks or more, how often have you been bothered by any of the following problems? 0-1-2-3 1. Little interest or pleasure in doing things 2 2. Feeling down, depressed, or hopeless 3 3. Trouble falling asleep, staying asleep, or sleeping too much 0 4. Feeling tired or having little energy 0 5. Poor appetite or overeating 3 6. Feeling bad about yourself -- or that you are a failure or have let yourself or others down 2 7. Trouble concentrating on things, such as reading a book or watching television 0 8. Feeling you were moving or speaking so slowly or were very fidgety and moving around in such a way that you or others could have noticed 0 9. Thoughts that you would be better off or of hurting yourself in some way 0 PHQ-9 TOTAL SCORE 10 1. Feeling nervous, anxious, or on edge 1 2. Been unable to control or stop worrying 0 3. Worried too much about different things 0 4. Trouble relaxing 0 5. Been so restless that it is hard to sit still 0 6. Becoming easily annoyed or irritable 0 7. Feeling afraid as if something awful might happen 0 KATE-7 TOTAL SCORE 1 Patient Health Questionnaire (PHQ-9): 10 (Moderate 10-14) PHQ-9, item 9 = 0 Generalized Anxiety Disorder (KATE-7): 1 (Minimal 0-4) C-SSRS administered: Yes [place] Suicide Severity Rating Scale Results 06/05/2024 12:20 [place] SUICIDE SEVERITY RATING SCALE (C-SSRS) Have you wished you were or wished you could go to sleep and not wake up? (In the Past Month or Since Last Visit) No Have you had any actual thoughts of killing yourself? (In the Past Month or Since Last Visit) No Have you been thinking about how you might do this? (In the Past Month or Since Last Visit) No Have you had thoughts and had some intention of acting on them? (In the Past Month or Since Last Visit) No Have you started to work out or worked out the details of how to kill yourself? Do you intend to carry out this plan? (In the Past Month or Since Last Visit) No Have you ever done anything, started to do anything, or prepared to do anything to end your life? (Lifetime) No Was this within the past 3 months? No Level of Risk No Risk Identified -Risk level same as last session (see note dated 05/20/2024 for further details) Safety Plan: Crisis Plan Step 1: Signs that I am doing worse: Crying out of the blue Step 2: Internal Coping Strategies: Things I can do to take my mind off my problems without contacting another person: Play a game on the computer, read Step 3: People and social settings that provide distraction (name, phone number and place): My stepmom. Number listed in the phone. Step 4: People whom I can ask for help (name and phone number): My stepmom. Number listed in the phone. Step 5: Professionals or agencies I can contact during a crisis (clinician name and phone number): Professional Resources: 1. Local Crisis Services: For [facility] 2. [facility] Division of Psychiatry: [phone] 3. [place] Suicide Prevention Lifeline: or 378 4. National Crisis Text Line: Text HOME to 246184 5. 911 or proceed to the nearest emergency room Step 6: Keeping the environment safe: Plan for restricting access to lethal means (firearms, medications). N/A INTERVENTION: labeling emotions, processing, clarification TREATMENT PLAN: Outpatient Adult Therapy Treatment Plan Treatment plan was developed on 03/13/2024, treatment will continue to focus on goals below; Treatment update will occur when clinically indicated or by 09/09/2024. Patient's goals captured in patient's words: "cope with anger" Expected family or significant other involvement: Offer Support Type of Service:Individual Patients Strengths and Facilitating Factors to care: Recognizes need for change and Seeking help Treatment Barriers: none identified Crisis Planning: What I can do if I ever experience a crisis (much worse symptoms, severe distress or thoughts of self-harm): Distraction on computer/TV People I can call in the event of a crisis: Family Member: stepmom Additional resources I can utilize if the previous steps are ineffective (e.g: ED, hotlines): Suicide and Crisis Lifeline - [address] [place] [address] Crisis Contact [place] [phone] [facility] -Crisis Services, and Clinic number: [phone] and Suicide Safety Plan Signature Obtained on Treatment Plan Patient/ Family Received Copy of Treatment Plan Duration of Treatment Frequency of Treatment Yes Yes 16-20 sessions monthly Patient Identified Needs/Goals Interventions Objective/ Discharge Criteria Problem/Need 1: Anxiety Cognitive Behavioral Therapy (CBT), which includes psychoeducation, cognitive restructuring, relaxation/diaphragmatic breathing, problem-solving, and behavioral activation andExposure and response prevention KATE<5 Problem/Need 2: Depression Cognitive Behavioral Therapy (CBT), which includes psychoeducation, cognitive restructuring, relaxation/diaphragmatic breathing, problem-solving, and behavioral activation PHQ<5 Please choose a method to track patient's improvement based on clinical assessment: PHQ-9 Adult Data KATE-7 Data [place] Suicide Screen Data Discharge Discussed with patient: Patient continues to need treatment Collaboration of Care: Yes, provider within [facility], information is shared automatically in medical record Is this the patients' initial treatment plan? No FOLLOW-UP PLAN: Return: 4 weeks Appointment: 07/04/2023 at 1:30 pm Action Plan: 1. Continue Cognitive Behavioral Therapy 2. Continue medication management with ANEUDY Maciel Treatment plan reviewed with the patient. Patient voices understanding and concurs with plan. PATIENT EDUCATION: Verbal & written Roly Miller [facility] Division of Psychiatry & Behavioral Medicine [facility] [phone] National Suicide Prevention Lifeline : 988 Crisis Textline : Text "HOME" to 503545 to connect with a crisis counselor Crisis Numbers by [facility]: [facility] Services - Emergency Services [facility] (674-5-YOU CAN) resolve Crisis Network [facility] . The Open Door - Crisis Intervention [facility] Crisis Help-Line [facility] Community [facility] - Crisis Intervention Services [facility] Service [employer] - Crisis Intervention [place] Choose option 1 - [facility] Department of [place] Carline Lopez & Zeeshan Crisis Intervention [place] - Mental Health Crisis [place] [facility] - Crisis Intervention [place] [facility] - Crisis Intervention Jonathan Whitehead Potter - Crisis Line Matthias Montes Pike - Mental Health Crisis Hotline [place] [facility] - Crisis Services [place] [facility] Center [employer] Service Access [employer]. - Crisis Intervention Krysten - Mental Health Crisis Intervention Services [place] [facility] MH/ID Program Joshua Myers, Mukesh, João - Crisis System [facility] - Crisis Hotline [place] & John (1-799-419-HELP) [facility] - Crisis Intervention [place] [facility] - Crisis Intervention [facility] - Crisis Services Toni Kaiser [facility] Health - Crisis Center [place] [phone] [facility] - Crisis Hotline Radha (8:30 am-5:00 pm) OR (after 5:00 pm, weekends & holidays) Maldonado [facility] Crisis Intervention Program [place] [facility] - Mental Health Crisis Line Alison Newton and Sandra - [facility] Crisis Tunde & Brittni [facility] - Crisis Intervention [facility] - Mental Health Crisis Service [place] - Crisis Intervention [place] [facility] - Crisis Intervention Patrick & Kallie [facility] - Help Line [facility] MH/ID Program Keisha [facility] - Crisis Intervention [place] [facility] - Crisis Intervention [facility], [facility] - Crisis Intervention [place] [facility] - Emergency Services [place] [facility] - Crisis Line [place] - DBHIDS - Suicide and Crisis Intervention [facility] - Crisis/ Emergency Services [place] [facility] - Emergency Contact Line [place] [facility] - Crisis Line [place] ext. 1 [facility] Human Services [facility] Action - Crisis Intervention Hotline [place] [facility] Crisis Intervention Services documented in this encounter Plan of Treatment Upcoming Encounters Date Type Department Care Team (Late st Contact Info) Description 06/19/2024 10:54 AM EDT Hospital Encounter [facility]ATING ROOM [facility] [address] [place] [address] Joseph Giordano MD [address] [place] [address] 06/19/2024 10:54 AM EDT - 06/19/2024 2:01 PM EDT Surgery [facility] [address] [place] [address] Joseph Giordano MD [address] [place], [place] [id number] ARTHRODESIS SPINE POSTERIOR OR POSTERIOR LATERAL WITH LAMINECTOMY LUMBAR, COMBINED 07/03/2024 1:30 PM EDT Telemedicine Psychology, [place] [address] [place] [address] Roly Miller, SQUEEZER OPERATOR [address] [place] [address] 07/14/2024 11:30 AM EDT Office Visit Orthopaedics Spine Surgery, [place] [address] [place] [address] Suzette Alcala PA-C [address] [place] [address] 07/15/2024 2:00 PM EDT Telemedicine Psychiatry, [place] [address] [place] [address] Brooke Deluca CRNP [address] [place] [address] 07/23/2024 1:00 PM EDT Telemedicine Nutrition Services [address] [place] [address] Jasvir Johnson, RDN [address] [place] [phone] 10/07/2024 2:40 PM EDT Telemedicine Endocrinology [address] [place] [address] Daniel Franco MD [address] [place] [address] 10/15/2024 3:30 PM EDT Office Visit Neurology Nina [place] [address] [place], [place] [phone] Mariya Harding PARosalia [address] [address] 10/21/2024 12:10 PM EDT Office Visit Family Practice, [place] [address] [place] [address] Elida Lance DO [address] [place] [address] 02/03/2026 2:20 PM EST Office Visit Dermatology, [place] [address] [place] [address] Yessi Morton PA-C [address] [place] [address] [address] [place] [phone] Scheduled Procedures Name Priority Associated Diagnoses Date/Ti [...] Additional history exists CKD PHOS USE SMARTSET 45577 10/17/202410/02, 03/16/2022, 02/09/2021, Additional history exists GFR 12/02/2024 06/02/2024, 10/02, 10/03/2023, Additional history exists Cologuard 04/04/2025 04/04/2022, 03/05, 03/27/2022 Colorectal Cancer Screening 04/04/2025 Depression Monitoring 05/20/2025 05/20/2024 , 01/02/2024, 12/26/2023 CKD HGB USE SMARTSET 03408 06/02/202506/02, 06/02/2024, 10/03/2023, Additional history exists Diabetes [...] this encounter Medical Devices Implanted Type Area Manager Demand Device Identifier Shelf Expiration Date Model / Serial / Lot Graft Infuse Bone Sm [id number] - [id number] Implanted:Qt y: 1 on 02/22/2012 at [place] [facility] N/A: Spine Lumbar [employer] : NEUROLOGIC PAIN 08/01/2014 [id number] / / [id number] Screw 6x45 Poly Si [id number] - [id number] Implanted:Qt y: 2 on 02/22/2012 at OR [facility] N/A: Spine Lumbar JNJ : [employer] [id number] / / Screw 7x35 Poly Si [id number] - [id number] Implanted:Qt y: 2 on 02/22/2012 at OR [facility] N/A: Spine Lumbar JNJ : [employer] [id number] / / Asif 5.5x55 Ti Prbnt [id number] - [id number] Implanted:Qt y: 2 on 02/22/2012 at OR [facility] N/A: Spine Lumbar JNJ : DEPUY SPINE [id number] / / Screw Set Sng Inner [id number] - [id number] Implanted:Qt y: 4 on 02/22/2012 at OR [facility] N/A: Spine Lumbar JNJ : DEPUY SPINE [id number] / / Cage 28x8 Leopard [id number] - [id number] Implanted:Qt y: 1 on 02/22/2012 at OR [facility] N/A: Spine Lumbar JNJ : [employer] [id number] / / Implant Brst Mod Cls Pro 360cc - [id number] Implanted:Qt y: 1 on 11/12/2012 at [place] [facility] Right: Breast MENTOR KRISSY 09/11/2017 [id number] [facility] / [id number] / [id number] Implant Brst Mod Cls Pro 360cc - [id number] Implanted:Qt y: 1 on 11/12/2012 at [place] [facility] Left: Breast MENTOR KRISSY 08/12/[address] / [id number] / [id number] 4.0 X 14 Variable Self Starting Screw Implanted:Qt y: 4 on 02/05/2020 by Luis Eduardo Ross MD at OR [facility] N/A: Spine Cervical KWADWO [id number] / / 1 Level 20mm Severance View Plate Implanted:Qt y: 1 on 02/05/2020 by Luis Eduardo Ross MD at OR [facility] N/A: Spine Cervical KWADWO [id number] / / [id number] ree Alcutian Implanted:Qt y: 1 on 02/05/2020 by Luis Eduardo Ross MD at OR [facility] N/A: Spine Cervical KWADWO [id number] / / Description:alctuian cage 2.5cc Vitoss Bimodal Foam Pack Implanted:Qt y: 1 on 02/05/2020 by Luis Eduardo Ross MD at OR [facility] N/A: Spine Cervical KWADWO [id number] 11/29/[id number] / [id number] / [id number] Sling Desara One - [id number] Implanted:Qt y: 1 on 08/31/2022 by Chico Perry MD at OR [facility] N/A: Vagina [employer] 08/10/2023 [id number] / / [id number] documented as of this encounter Visit Diagnoses Diagnosis Spinal stenosis, lumbar- Primary Spinal stenosis, lumbar region, without neurogenic claudication DDD (degenerative disc disease), cervical Degeneration of cervical intervertebral disc Spinal stenosis, lumbar Spinal stenosis, lumbar region, without neurogenic claudication Borderline personality disorder (HCC)- Primary Borderline personality disorder Spinal stenosis of lumbar region with neurogenic [...] and were consensually agreed upon. Care Teams Horser Up Relationship Specialty Start Date End Date Elida Lance DO [address] [address] PCP - General Family Medicine 05/22/24 documented as of this encounter
--- OUTSIDE RECORDS SUMMARY | 2024-06-26 12:49 | External Medical Summary | Summary of Care ---
Author Name Unknown Organization [facility] Address [address] [place] [address] Phone [phone] Care Team Providers Care Outcome Analyst Name Role Phone Elida Lance DO Primary Care Provider [phone] Reason for Visit * Reason Onset Date Comments Test Results 06/03/2024 Encounter Details Date Type Department Care Team (Late st Contact Info) Description 06/03/2024 Telephone Orthopaedics Spine Surgery, [place] [address] [place] [address] Suzette Alcala PA-C [address] [place] [address] Test Results Allergies Active Allergy [...] DDD (degenerative disc disease), lumbar 11/21/19 12 [place] Confirmation Research Other*[id number] 06/11/2009 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 [place] [phone] Roly Miller, [facility] [address] [facility] [place] [phone] 06/19/2024 10:54 AM EDT Hospital Encounter [place] C, [facility]PER[facility] [address] [place] [phone] Joseph Giordano MD [address] [place] [address] 06/19/2024 10:54 AM EDT - 06/19/2024 2:01 PM EDT Surgery [address] [facility] OPERATING RO[facility] [place] [facility] [address] [place] [phone] Joseph Giordano MD [address], [place] [id number] ARTHRODESIS SPINE POSTERIOR OR POSTERIOR LATERAL WITH LAMINECTOMY LUMBAR, COMBINED 07/14/2024 11:30 AM EDT Office Visit Orthopaedics Spine Surgery, [place] [address] [place] [address] Suzette Alcala PA-C [address], [place] [phone] 07/15/2024 2:00 PM EDT Telemedicine Psychiatry, [place] [address] [place] [phone] Brooke Deluca CRNP [address] [place] [address] 07/23/2024 1:00 PM EDT Telemedicine Nutrition Services [address] [place] [address] Jasvir Johnson, RDN [address] [place] [address] 10/07/2024 2:40 PM EDT Telemedicine Endocrinology [address] [place] [phone] Daniel Franco MD [address] [place] [address] 10/15/2024 3:30 PM EDT Office Visit Neurology [facility] [place] [address] [facility] [place] [address] Mariya Harding PA-C [address] [facility] [place] [address] 10/21/2024 12:10 PM EDT [facility] [place] [facility] [place] [address] [facility] [place] [phone] Elida Lance DO [address] [facility] [place] [address] 02/03/2026 2:20 PM EST [facility] [place] [address] [facility] [address] Yessi Morton PA-C [address] [place] [address] [place] [address] Scheduled Procedures Name Priority Associated Diagnoses Date/Ti [...] Additional history exists CKD PHOS USE SMARTSET 06508 10/17/202410/02, 03/16/2022, 02/09/2021, Additional history exists GFR 12/02/2024 06/02/2024, 10/02, 10/03/2023, Additional history exists Cologuard 04/04/2025 04/04/2022, 03/05, 03/27/2022 Colorectal Cancer Screening 04/04/2025 Depression Monitoring 05/20/2025 05/20/2024 , 01/02/2024, 12/26/2023 CKD HGB USE SMARTSET 69474 06/02/202506/02, 06/02/2024, 10/03/2023, Additional history exists Diabetes [...] this encounter Medical Devices Implanted Type Area Cat Driver Device Identifier Shelf Expiration Date Model / Serial / Lot Graft Infuse Bone Sm [id number] - [id number] Implanted:Qt y: 1 on 02/22/[address] [facility] N/A: Spine Lumbar [employer] : NEUROLOGIC PAIN 08/01/2014 [id number] / / [id number] Screw 6x45 Poly Si [id number] - [id number] Implanted:Qt y: 2 on 02/22/[address] [facility] N/A: Spine Lumbar JNJ : [employer] [id number] / / Screw 7x35 Poly Si [id number] - [id number] Implanted:Qt y: 2 on 02/22/[address] [facility] N/A: Spine Lumbar JNJ : [employer] [id number] / / Asif 5.5x55 Ti Prbnt [id number] - [id number] Implanted:Qt y: 2 on 02/22/[address] [facility] N/A: Spine Lumbar JNJ : DEPU[employer] SPINE [id number] / / Screw Set Sng Inner [id number] - [id number] Implanted:Qt y: 4 on 02/22/[address] [facility] N/A: Spine Lumbar JNJ : DEPU[employer] SPINE [id number] / / Cage 28x8 Leopard [id number] - [id number] Implanted:Qt y: 1 on 02/22/[address] [facility] N/A: Spine Lumbar JNJ : [employer] [id number] / / Implant Brst Mod Cls Pro 360cc - [id number] Implanted:Qt y: 1 on 11/12/[address] [facility] Right: Breast [employer]ENT[employer] KRISSY 09/11/2017 [id number] / [id number] / [id number] Implant Brst Mod Cls Pro 360cc - [id number] Implanted:Qt y: 1 on 11/12/[address] [facility] Left: Breast MENT[employer] KRISSY 08/12/2017 [id number] / [id number] / [id number] 4.0 X 14 Variable Self Starting Screw Implanted:Qt y: 4 on 02/05/2020 by Luis Eduardo Ross MD at OR [facility] N/A: Spine Cervical KWADWO [id number] / / 1 Level 20mm [place] Plate Implanted:Qt y: 1 on 02/05/2020 by Luis Eduardo Ross MD at OR [facility] N/A: Spine Cervical KWADWO [id number] / / [id number] Alcutian Implanted:Qt y: 1 on 02/05/2020 by Luis Eduardo Ross MD at OR [facility] N/A: Spine Cervical KWADWO [id number] / / Description:alctuian cage 2.5cc Vitoss Bimodal Foam Pack Implanted:Qt y: 1 on 02/05/2020 by Luis Eduardo Ross MD at OR [facility] N/A: Spine Cervical KWADWO [id number] 11/29/2020 [id number] / [id number] / [id number] Sling Desara One - [id number] Implanted:Qt y: 1 on 08/31/2022 by Chico Perry MD at OR [facility] N/A: Vagina [employer] 08/10/2023 [id number] / / [id number] documented as of this encounter Advance Directives [...] and were consensually agreed upon. Care Teams Outcome Analyst Relationship Specialty Start Date End Date Elida Lance DO [address] [place] [address] PCP - General Family Medicine 05/22/24 documented as of this encounter
--- OUTSIDE RECORDS SUMMARY | 2024-06-26 12:50 | External Medical Summary ---
Author Name Unknown Address Unknown Organization K01:[facility] [place] [address] [address] [facility] [address] Laboratory Report Ordering Provider Test Date Status CRISTAL WILDE 06/02/2024 12:42:18 Final Cutoff Concentration:
D rug Level
THC-COOH 10 ng/mL

This test was developed and its performance characteristics determined by [facility]. It has not been cleared or approved by the [place] Food and Drug Administration.
null Observation Date Value Abnormality Reference (Units ) Status METHODOLOGY 06/02/2024 12:42:18 LC-MS/MS Final Cannabinoids, Urine confirmatory 06/02/2024 12:42:18 >400 Above high normal Negative (ng/mL) Final Performing Location [facility] [place] [address] [facility] [address]
--- OUTSIDE RECORDS SUMMARY | 2024-06-26 12:50 | External Medical Summary ---
Author Name Unknown Address Unknown Organization K01:[facility] [address] [place] [address] Laboratory Report Ordering Provider Test Date Status CRISTAL WILDE 06/02/2024 12:42:18 Final Observation Date Value Abnormality Reference (Units ) Status Albumin 06/02/2024 12:42:18 4.1 3.8-5.0 (g /dL) Final Performing Location [facility] [address] [place] [address]
--- OUTSIDE RECORDS SUMMARY | 2024-06-26 12:50 | External Medical Summary | Summary of Care ---
Author Name Unknown Organization [facility] Address [address] [facility] [address] Phone [phone] Care Team Providers Care Career Services Officer Name Role Phone Elida Lance DO Primary Care Provider Reason for Visit * Reason Comments Follow Up Depression Anxiety * - Authorized Specialty Diagnoses / Procedures Referred By Traci rizzo Referred To Contact Referral ID Status Reason Start Date Expiration Date V isits Requested Visits Authorized [id number] Authorized 11/03/2023 11/01/2024 [id number] Encounter Details Date Type Department Care Team (Late st Contact Info) Description 05/20/2024 1:30 PM EDT Telemedicine Psychology, [facility] [address] [place] [address] Roly Miller, [facility] [address] [place] [address] Borderline personality disorder (HCC)* Allergies Active Allergy Reactions Criticality Noted Date Comments Nsaids 02/01/2020 Hx gastric bypass Other Allergy (See Comments) Rash Medium 013 Dermabond prineo Penicillins 10/04/1999 Rash, last dose was in her 20's Sulfa Antibiotics 10/04/1999 Rash in her early 20's documented as of this encounter (statuses as of 05/20/2024) Medications MULTIVITAMINS PO CAPS Take 1 Capsule by mouth every evening. Active CVS IRON 45 MG PO TABS Take 1 Tablet by mouth in the morning. Active Metoclopramide HCl 5 MG Oral Tablet (Reglan) Take 1 Tablet by mouth every 4 hours as needed for Nausea. 20 Tablet 3 Active Pantoprazole Sodium 40 MG Oral Tablet Delayed Release (Protonix)Indica tions:Acid reflux TAKE ONE TABLET BY MOUTH TWICE A DAY 30 MINUTES BEFORE MEALS; DO NOT CRUSH, CUT OR CHEW 180 Tablet 2 3 Active Additional Information Patient taking differently: 40 mg Oral Daily(AM), Reported on 04/10/2024 Hair Skin & Nails Advanced Oral Tablet [...] differently: 0.5 TabletOral PRN, Anxiety, Reported on 04/10/2024 Primidone 50 MG Oral Tablet (Mysoline) Take [...] mouth once a week. 12 Tablet 3 03/02/2024 10:19 AM EST 4 Active Trintellix 20 MG Oral Tablet [...] in the morning. 180 Tablet 3 5 Active documented as of this encounter (statuses as of 05/20/2024) Active Problems Problem Noted Date Diagnosed Date Major depressive disorder, recurrent, in partial remission 12/27/2021 Generalized anxiety disorder 12/27/2021 S/P cervical spinal fusion 02/05/2020 DDD (degenerative disc disease), cervical 2017 Major depressive disorder, recurrent, moderate 0 06/14/2017 Memory changes 01/01/2017 Benign hypertension with CKD (chronic kidney disease) stage III 12/26/2016 Controlled substance agreement signed 04/08/2015 DDD (degenerative disc disease), lumbar 11/21/19 12 [place] Confirmation Research Other*[id number] 06/0 11/2009 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 B12 malabsorption s/p gastric bypass 07/14/2002 Allergic rhinitis 02/12/2002 Dyslipidemia, goal LDL below 130 12/04/2001 Chronic rhinitis HTN, goal below 140/90 Spinal stenosis, lumbar Spondylolisthesis documented as of this encounter (statuses as of 05/20/2024) Resolved Problems Problem Noted Date Diagnosed Date [...] as of this encounter (statuses as of 05/20/2024) Immunizations Name Administration Dates Next Due COVID-19 [...] this encounter Progress Notes * Roly Miller, FLEXIBLE MACHINING SYSTEM MACHINIST - 05/20/2024 1:11 PM EDT Images from the original note were not included. Patient location: HOME. I was not in a hospital or clinic location. After connecting through televideo, patient was verified with two unique identifiers. Patient (or authorized legal credit resolution representative) was then informed that this was a Telemedicine visit and being conducted confidentially over secure lines. Methods to assure confidentiality were taken. Patient acknowledged consent and understanding of privacy and security of the Telemedicine visit. The patient agreed to participate. Start Time: 1:11 pm Stop Time: 1:52 pm Total direct time: 41 minutes BEHAVIORAL MEDICINE RETURN VISIT PROGRESS NOTE Sonia Perez [address] [place] [address] [place] [address] 05/20/2024 1:11 PM TYPE OF VISIT: Individual DIAGNOSIS: Borderline personality disorder (HCC) (Primary) REASON FOR SESSION: Individual therapy Session #: 25 SESSION FOCUS: depression and anxiety NOTES: Therapist met with patient to complete an individual session. Patient processed depression and anxiety. Patient denied any SI/HI. Patient Patient denied any self-harm. Patient reported she met with psychologist earlier today to discuss joining pain management group. Patient reported decreased anxiety about the patient's scheduled back surgery on June 19, 2024, as the patient reported her utility helicopter repairer informed the patient to ask to go to rehab after the patient gets back surgery. Patient stated, "I'm making list of questions to ask", when she has a pre-surgery appointment on June 02. Additionally, the patient reported she made a list for her family members to lend her a cooler. Patient reported she hears from her son via [employer] messenger. Patient reported she has a new insurance case manager and her first appointment was last . Patient reported she found out she is losing her hair. Patient and therapist identified the following strengths [...] Insight/Judgment: good PROGRESS TOWARDS GOALS: Patient reported decreased depression and decreased anxiety since the last session with this real estate underwriter. Goal: Improved self-management of depression and anxiety [...] (KATE-7): 1 (Minimal 0-4) C-SSRS administered: Yes [place] Suicide Severity Rating Scale Results 05/20/2024 [place] SUICIDE SEVERITY RATING SCALE (C-SSRS) Have [...] No Level of Risk No Risk Identified Protective Factors Help-Seeking Behaviors Risk Factors History of Depression;History of Trauma;Physical illness/chronic pain;Anxiety;Financial/economic duress Details More values are hidden. Newest values shown. Go to activity for more data. -Risk level same as last session (see note dated 04/16/2024 for further details) Safety Plan: Crisis Plan [...] Professional Resources: 1. Local Crisis Services: For [facility] -[facility] 2. [facility] Division of Psychiatry: [phone] 3. [place] Suicide Prevention Lifeline: or 888 4. National Crisis Text Line: Text HOME to 658875 5. 911 or proceed to the nearest emergency room Step 6: Keeping the environment safe: Plan for restricting access to lethal means (firearms, medications). N/A INTERVENTION: reflection of feelings, processing, clarification TREATMENT PLAN: Outpatient Adult Therapy [...] ED, hotlines): Suicide and Crisis Lifeline - [address] [place] [address] Crisis Contact [place] [phone] [facility] -Crisis Services, and Clinic number: [phone] and Suicide Safety Plan Signature Obtained on [...] clinical assessment: PHQ-9 Adult Data KATE-7 Data [place] Suicide Screen Data Discharge Discussed with patient: Patient continues to need treatment Collaboration of Care: Yes, provider within [facility], information is shared automatically in medical record Is this the patients' initial treatment plan? No FOLLOW-UP PLAN: Return: 2 weeks Appointment: 06/05/2024 at 12:30 pm Action Plan: 1. Continue Cognitive Behavioral Therapy 2. Continue medication management with ANEUDY Maciel Treatment plan reviewed with the patient. Patient voices understanding and concurs with plan. PATIENT EDUCATION: Verbal & written Roly Miller [facility] Division of Psychiatry & Behavioral Medicine [facility] [phone] National Suicide Prevention Lifeline : 316 Crisis Textline : Text "HOME" to 997737 to connect with a crisis counselor Crisis Numbers by [facility]: [place] [facility] Services - Emergency Services [facility] (926-3-YOU CAN) resolve Crisis Network [place] . The Open Door - Crisis Intervention [place] [facility] Crisis Help-Line [facility] - Crisis Intervention Services [facility] Service Access [employer] - Crisis Intervention [place] Choose option 1 [facility] of Molder Floor Carline Lopez & Zeeshan Crisis Intervention [place] [facility] - Mental Health Crisis Ye[facility] - Crisis Intervention [place] [facility] - Crisis Intervention Jonathan Whitehead Potter - Crisis Line Matthias [place] - Mental Health Crisis Hotline [place] [facility] - Crisis Services [place] [facility] Crisis Center [place] Service [employer] - Crisis Intervention [place] Chanel SantamariaHumphrey - Mental Health Crisis Intervention Services [place] [facility] MH/ID Program Joshua Myers Snyder, [place] - Crisis System [place] [facility] Human Services - Crisis Hotline [place] & John (6-304-817-HELP) [facility] - Crisis Intervention [place] [facility] - Crisis Intervention [facility] - Crisis Services Toni [facility] - Crisis Center [place] [phone] [facility] - Crisis Hotline Radha (8:30 am-5:00 pm) OR (after 5:00 pm, weekends & holidays) Maldonado [facility] Crisis Intervention Program [place] [facility] - Mental Health Crisis Line Tobias [place] - [facility] Crisis Tunde & Brittni [facility] - Crisis Intervention [place] [facility] - Mental Health Crisis Service App[place] [facility] - Crisis Intervention [place] [facility] - Crisis Intervention Patrick & Kallie [facility] - Help Line [place] [facility]/ID Program Keisha [facility] - Crisis Intervention [place] [facility] - Crisis Intervention [place] [facility] - Crisis Intervention Slemp [facility] - Emergency Services [place] [facility] - Crisis Line [place] - DBHIDS - Suicide and Crisis Intervention Hotline [facility] - Crisis/ Emergency Services [place] [facility] - Emergency Contact Line [place] [facility] - Crisis Line [place] ext. 1 [facility] Human Services [facility] - Crisis Intervention Hotline [place] [facility] Crisis Intervention Services documented in this encounter Plan of Treatment Upcoming Encounters Date Type Department Care Team (Late st Contact Info) Description 05/28/2024 1:00 PM EDT Telemedicine Psychiatry, [facility] [address] [place] [address] Brooke Deluca CRNP [address], [place] [id number] 06/02/2024 11:30 AM EDT Office Visit Orthopaedics Spine Surgery, [place] [address] [place] [phone] Suzette Alcala PA-C [address] [place] [address] 06/05/2024 12:30 PM EDT Telemedicine Psychology, [facility] [address] [place] [phone] Roly Miller LCSW [address] [place] [phone] 06/19/2024 10:54 AM EDT Hospital Encounter [facility], OPERATING ROOM [facility] [address] [facility] [place] [address] Joseph Giordano MD [address] [facility], [place] [phone] 06/19/2024 10:54 AM EDT - 06/19/2024 2:01 PM EDT Surgery [facility], OPERATING ROOM [facility], [place] GARCIA [address] [facility] [place] [address] Joseph Giordano MD [address], [place] [phone] ARTHRODESIS SPINE POSTERIOR OR POSTERIOR LATERAL WITH LAMINECTOMY LUMBAR, COMBINED 07/23/2024 1:00 PM EDT Telemedicine Nutrition Services [address] [place] [address] Jasvir Johnson, N [address] [place] [phone] 10/07/2024 2:40 PM EDT Telemedicine Endocrinology [address] [address] [place] [address] Daniel Franco MD [address], [place] [phone] 10/15/2024 3:30 PM EDT Office Visit Neurology [facility] [place] [address] [facility] [place] [address] Mariya Harding PA-C [address] [place] [phone] 10/21/2024 12:10 PM EDT Office Visit [facility] [address] [facility] [place] [phone] Elida Lance DO [address] [facility] [place] [phone] 02/03/2026 2:20 PM EST Office Visit [address] [place] [phone] Yessi Morton PA-C [address] [place] [address] [place] [phone] Scheduled Procedures Name Priority Associated Diagnoses Date/Ti [...] Test 2006 Sigmoidoscopy 2006 Mammogram 08/09/2017 08/09/2016, 0 09/2015, 08/05/2014, Additional history exists Pneumococcal Vaccine: 50+ Years (3 of 3 - PCV20 or PCV21) 07/09/2021 07/09/2016, 08/21/2013 Colonoscopy 01/14/2022 01/15/2012, 01/15/2012 COVID-19 Vaccine (3 - season) 2023 12/08/2020, 11/17/2020 Albumin/Creatinine Ratio 03/21/202403/21/ 024, 02/03/2019, 09/05/2017, Additional history exists GFR 04/19/2024 10/18/2023, 4, 03/20/2023, Additional history exists CKD HGB USE SMARTSET 71821 10/02/202410/02, 08/14/2022, 03/16/2022, Additional history exists CKD PHOS USE SMARTSET 18086 10/17/202410/02, 03/16/2022, 02/09/2021, Additional history exists Cologuard 04/04/2025 04/04/2022, 03/05, 03/27/2022 Colorectal Cancer Screening 04/04/2025 Depression Monitoring 05/20/2025 05/20/2024 , 01/02/2024, 12/26/2023 Diabetes Screening 10/17/2026 10/18/2023, 0 10/03/2023, 03/20/2023, Additional history exists Lipid Panel 09/12/2028 09/13/2023, [...] this encounter Medical Devices Implanted Type Area Vehicle Maintenance Supervisor Device Identifier Shelf Expiration Date Model / Serial / Lot Graft Infuse Bone Sm [id number] - [id number] Implanted:Qt y: 1 on 02/22/2012 at [place] [facility] N/A: Spine Lumbar MED[employer]IC : NEUROLOGIC PAIN 08/01/2014 [id number] / / [id number] Screw 6x45 Poly Si [id number] - [id number] Implanted:Qt y: 2 on 02/22/2012 at [place] [facility] N/A: Spine Lumbar JNJ : ETH[employer]ON [employer] [id number] / / Screw 7x35 Poly Si [id number] - [id number] Implanted:Qt y: 2 on 02/22/2012 at [place] [facility] N/A: Spine Lumbar JNJ : ETH[employer]ON [employer] [id number] / / Asif 5.5x55 Ti Prbnt [id number] - [id number] Implanted:Qt y: 2 on 02/22/2012 at [place] [facility] N/A: Spine Lumbar JNJ : DEPUY SPINE [id number] / / Screw Set Sng Inner [id number] - [id number] Implanted:Qt y: 4 on 02/22/2012 at [place] [facility] N/A: Spine Lumbar JNJ : DEPUY SPINE [id number] / / Cage 28x8 Leopard [id number] - [id number] Implanted:Qt y: 1 on 02/22/2012 at [place] [facility] N/A: Spine Lumbar JNJ : [employer]ON [employer] [id number] / / Implant Brst Mod Cls Pro 360cc - [id number] Implanted:Qt y: 1 on 11/12/2012 at [place] [facility] Right: Breast MENTOR KRISSY 09/11/2017 350-[facility] / [id number] / [id number] Implant Brst Mod Cls Pro 360cc - [id number] Implanted:Qt y: 1 on 11/12/2012 at [place] [facility] Left: Breast MENTOR KRISSY 08/12/2017 350[facility] / [id number] / [id number] 4.0 X 14 Variable Self Starting Screw Implanted:Qt y: 4 on 02/05/2020 by Luis Eduardo Ross MD at OR [facility] N/A: Spine Cervical KWADWO [id number] / / 1 Level 20mm [place] View Plate Implanted:Qt y: 1 on 02/05/2020 by Luis Eduardo Ross MD at OR [facility] N/A: Spine Cervical KWADWO [id number] / / [id number] [id number] Alcutian Implanted:Qt y: 1 on 02/05/2020 by Luis Eduardo Ross MD at OR [facility] N/A: Spine Cervical KWADWO [id number] / / Description:alctuian cage 2.5cc Vitoss Bimodal Foam Pack Implanted:Qt y: 1 on 02/05/2020 by Luis Eduardo Ross MD at OR [facility] N/A: Spine Cervical KWADWO [id number] 11/29/2020 [id number] / [id number] / [id number] aWll - [id number] Implanted:Qt y: 1 on 08/31/2022 by Chico Perry MD at [facility] N/A: Vagina [employer] 08/10/2023 [id number] / / [id number] documented as of this encounter Visit Diagnoses [...] and were consensually agreed upon. Care Teams Career Services Officer Relationship Specialty Start Date End Date Elida Lance DO PCP - General Family Medicine 11/03/19 documented as of this encounter
--- OUTSIDE RECORDS SUMMARY | 2024-06-26 12:50 | External Medical Summary ---
Author Name Unknown Address Unknown Organization K01:[facility] - [address] [facility] [place] [address] Laboratory Report Ordering Provider Test Date Status ANDRYCRISTAL EDWARDS 06/02/2024 12:42:18 Final Observation Date Value Abnormality Reference (Units ) Status SYNC LEUKOCYTES IN BLOOD BY AUTOMATED COUNT 06/02/2024 12:42:18 5.52 4.00-10.80 (K/uL) Final Segs 06/02/2024 12:42:18 62.6 40.0-75.0 (%) Final Lymphs % 06/02/2024 12:42:18 28.3 18.0-42.0 (%) Final Monos 06/02/2024 12:42:18 6.2 1.0-11.0 (%) Final Eosinophils 06/02/2024 12:42:18 2.0 0.0-6.0 (%) Final Basos 06/02/2024 12:42:18 0.5 0.0-2.0 (%) Final Immature Granulocyte, Percent 06/02/2024 12:42:18 0.4 0.0-2.0 (%) Final Absolute Segs 06/02/2024 12:42:18 3.46 1.80-7.70 (K/uL) Final Lymphs, absolute 06/02/2024 12:42:18 1.56 1.00-4.80 (K/ul) Final Monos, Abs 06/02/2024 12:42:18 0.34 0.00-1.10 (K/uL) Final Eos, Abs 06/02/2024 12:42:18 0.11 0.00-0.70 (K/uL) Final Basos, Abs 06/02/2024 12:42:18 0.03 0.00-0.20 (K/uL) Final Immature Granulocytes, Number 06/02/2024 12:42:18 0.02 0.00-0.20 (K/uL) Final Performing Location LABORATORY [facility] - [address] [facility] [address]
--- OUTSIDE RECORDS SUMMARY | 2024-06-26 12:50 | External Medical Summary ---
Author Name Unknown Address Unknown Organization K01:LABORATORY [facility] - [address] [facility] [address] [place] [address] Laboratory Report Ordering Provider Test Date Status CRISTAL WILDE 06/02/2024 12:42:18 Final Observation Date Value Abnormality Reference (Units ) Status BUN 06/02/2024 12:42:18 11 6-20 (mg/dL) Final Creatinine 06/02/2024 12:42:18 1.0 0.5-1.0 (mg/dL) Final Glomerular filtration rate/1.73 sq M.predicted [Volume Rate/Area] in Serum, Plasma or Blood by Creatinine-based formula (CKD-EPI) 06/02/2024 12:42:18 61 >=60 (mL/min) Final eGFR is calculated based on the CKD-EPI 2020 equation. Sodium 06/02/2024 12:42:18 134 Below low normal 135 -146 (mmol/L) Final Potassium 06/02/2024 12:42:18 4.4 3.5-5.1 (m mol/L) Final Cl 06/02/2024 12:42:18 99 98-107 (mm ol/L) Final CO2 06/02/2024 12:42:18 27 22-32 (mmo l/L) Final Anion gap 06/02/2024 12:42:18 8 7-15 (mmol /L) Final Glucose 06/02/2024 12:42:18 84 70-120 (mg /dL) Final Calcium 06/02/2024 12:42:18 9.8 8.4-10.2 ( mg/dL) Final Performing Location LABORATORY [facility] - [facility] [address] [facility] [address] [place] [address]
--- OUTSIDE RECORDS SUMMARY | 2024-06-26 12:50 | External Medical Summary ---
Author Name Unknown Address Unknown Organization K01:[facility] - [address] [facility] [place] [address] Laboratory Report Ordering Provider Test Date Status CRISTAL WILDE 06/02/2024 12:42:18 Final Observation Date Value Abnormality Reference (Units) Status Bacteria identified in Specimen by Culture 06/02/2024 12:42:18 No significant growth Final Test: CULTURE QUANT URINE [8 7086.02]
Specimen Source: Urine, Clean Catch
Specimen Type: Urine
Specimen Date: 06/02/2024 1242
Result Date: 06/03/2024 1023
Result Status: Final result
Resulting Lab: [facility]
[address]
[place] [address]

CULTURE

No significant growth

null Performing Location LAB[facility] - [address] [place] [address]
--- OUTSIDE RECORDS SUMMARY | 2024-06-26 12:50 | External Medical Summary ---
Author Name Unknown Address Unknown Organization K01:[facility] [place] [address] [place] [address] Laboratory Report Ordering Provider Test Date Status CRISTAL WILDE 06/02/2024 12:42:18 Final Observation Date Value Abnormality Reference (Units ) Status WBC, Total 06/02/2024 12:42:18 5.52 4.00-10.8 0 (K/uL) Final RBC 06/02/2024 12:42:18 3.86 3.85-5.15 (M/uL) Final Hemoglobin 06/02/2024 12:42:18 12.2 12.0-15.3 (g/dL) Final Anemia reflex testing trigge rs on a HGB < 12.0 for Females and HGB < 13.0 for Males in accordance with the WHO Anemia Guidelines
Anemia reflex testing triggers on a HGB < 12.0 for Females and HGB < 13.0 for Males in accordance with the WHO Anemia Guidelines HCT 06/02/2024 12:42:18 37.7 36.0-45.2 (%) Final MCV 06/02/2024 12:42:18 97.7 81.5-97.5 (fL) Final MCH 06/02/2024 12:42:18 31.6 27.0-34.0 (pg) Final MCHC 06/02/2024 12:42:18 32.4 32.0-36.0 (g/dL) Final RDW 06/02/2024 12:42:18 13.1 11.5-15.5 (%) Final Platelets 06/02/2024 12:42:18 242 140-400 (K /uL) Final MPV 06/02/2024 12:42:18 9.0 6.6-11.1 ( fL) Final Nucleated erythrocytes/100 leukocytes [Ratio] in Blood by Automated count 06/02/2024 12:42:18 0 <=0 (/100 WBCs) [facility] Performing Location [facility] - [address] [facility] [address]
--- OUTSIDE RECORDS SUMMARY | 2024-06-26 12:50 | External Medical Summary ---
Author Name Unknown Address Unknown Organization K01:LABORATORY [place] [address] [place] [address] Laboratory Report Ordering Provider Test Date Status CRISTAL WILDE 06/02/2024 12:40:05 Final Observation Date Value Abnormality Reference (Units ) Status Staphylococcus aureus methicillin resistance SCCmec [Presence] in Nose by VICK with probe detection 06/02/2024 12:40:05 Positive Abnormal Negative Final Methicillin resistant Staphy lococcus aureus detected by PCR (amplified probe). MRSA-This patient may require isolation. Please refer to Infection Control isolation policy. Methicillin susceptible Staphylococcus aureus DNA [Presence] in Specimen by VICK with probe detection 06/02/2024 12:40:05 Positive Abnormal Negative Final Staphylococcus aureus detect ed by PCR (amplified probe). Performing Location LABORATORY [place] [address] [place] [address]
--- OUTSIDE RECORDS SUMMARY | 2024-06-26 12:50 | External Medical Summary ---
Author Name Unknown Address Unknown Organization K01:LABORATORY [facility] [place] - [address] [facility] [place] [place] [address] Laboratory Report Ordering Provider Test Date Status CRISTAL WILDE 06/02/2024 12:42:18 Final Cutoff Concentrations:
Drug Level
Amphetamines 500 ng/mL
Benzodiazepines 100 ng/mL
Cannabinoids 50 ng/mL
Cocaine Metabolite 150 ng/mL
Fentanyl 1 ng/mL
Hydrocodone / Hydromorphone � 300 ng/mL
Methadone Metabolite 100 ng/mL
Morphine / Codeine 300 ng/mL
Oxycodone / Oxymorphone 100 ng/mL

Screening results are presumptive and can only be used for medical purposes. Positive screening results are reflexed to confirmatory testing. Observation Date Value Abnormality Reference (Units ) Status Amphetamines, Urine screen 06/02/2024 12:42:18 Negative Negative Final Benzodiazepines, Urine screen 06/02/2024 12:42:18 Negative Negative Final Cannabinoids, Urine screen 06/02/2024 12:42:18 Positive Abnormal Negative Final Cocaine Metabolite, Urine screen 06/02/2024 12:42:18 Negative Negative Final fentaNYL [Presence] in Urine by Screen method 06/02/2024 12:42:18 Negative Negative Final HYDROcodone [Presence] in Urine by Screen method 06/02/2024 12:42:18 Negative Negative Final 2-Dutirdwtff-2,5-Dimeth yl-3,3-Diphenylpyrrolid ine (EDDP) [Presence] in Urine 06/02/2024 12:42:18 Negative Negative Final Opiates, Urine screen 06/02/2024 12:42:18 Negative Negative Final oxyCODONE [Presence] in Urine by Screen method 06/02/2024 12:42:18 Negative Negative Final Performing Location [facility] [address] [facility] [address] [address]
--- OUTSIDE RECORDS SUMMARY | 2024-06-26 12:50 | External Medical Summary | Summary of Care ---
Author Name Unknown Organization [facility] Address [address] [place] [address] Phone [phone] Care Team Providers Care Taper/Finisher Name Role Phone Elida Lance DO Primary Care Provider Reason for Visit * Reason Onset Date Comments Referral 05/21/2024 Encounter Details Date Type Department Care Team (Late st Contact Info) Description 05/21/2024 Telephone [facility], [place] [address] [place] [address] Ale Arroyo PsyD [address] [place] [address] Referral Allergies Active Allergy Reactions Criticality Noted Date Comments Nsaids 02/01/2020 Hx gastric bypass Other Allergy (See Comments) Rash Medium 013 Dermabond prineo Penicillins 10/04/1999 Rash, last dose was in her 20's Sulfa Antibiotics 10/04/1999 Rash in her early 20's documented as of this encounter (statuses as of 05/21/2024) Medications MULTIVITAMINS PO CAPS Take 1 Capsule [...] as of this encounter (statuses as of 05/21/2024) Active Problems Problem Noted Date Diagnosed Date [...] disease), lumbar 11/21/19 12 [facility] Confirmation Research Other*[id number] 06/0 11/2009 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 B12 malabsorption s/p gastric bypass 07/14/2002 Allergic rhinitis 02/12/2002 Dyslipidemia, goal LDL below 130 12/04/2001 Chronic rhinitis HTN, goal below 140/90 Spinal stenosis, lumbar Spondylolisthesis documented as of this encounter (statuses as of 05/21/2024) Resolved Problems Problem Noted Date Diagnosed Date [...] as of this encounter (statuses as of 05/21/2024) Immunizations Name Administration Dates Next Due COVID-19 mRNA, LNP-s, No Pre serve, 2-Dose Series (GoPlaceIt) 12/08/2020,11/17/2020 Pneumococcal Conjugate Vacc, 13 Valent (Prevnar) [...] encounter Miscellaneous Notes * Telephone Encounter - Renetta Bell OSA - 05/21/2024 10:56 AM EDT Pt was referred to the virtual CBT for Chronic Pain group on 05/20/24 by Ale Arroyo. Called and spoke to the pt to offer group and the pt agreed to join. Need to call back with a confirm start date. documented in this encounter Plan of Treatment Upcoming Encounters Date Type Department Care Team (Late st Contact Info) Description 05/28/2024 1:00 PM EDT Telemedicine Psychiatry, [place] [address] [place] [address] Brooke Deluca CRNP [address] [place] [address] 06/02/2024 11:30 AM EDT Office Visit Orthopaedics Spine Surgery, [place] [address] [place] [phone] Suzette Alcala PA-C [address], [place] [id number] 06/05/2024 12:30 PM EDT Telemedicine [facility], [place] [address] [place] [address] Roly Miller, [facility] [address] [place] [address] 06/19/2024 10:54 AM EDT Hospital Encounter OR [facility], OPERATING ROOM [facility], [facility] [address] [place] [phone] Joseph Giordano MD [address] [place] [address] 06/19/2024 10:54 AM EDT - 06/19/2024 2:01 PM EDT Surgery OR [facility], OPERATING ROOM [facility], [facility] [address] [place] [address] Joseph Giordano MD [address], [place] [id number] ARTHRODESIS SPINE POSTERIOR OR POSTERIOR LATERAL WITH LAMINECTOMY LUMBAR, COMBINED 07/23/2024 1:00 PM EDT Telemedicine Nutrition Services [address] [place] [address] Jasvir Johnson, RDN [address] [place] [address] 10/07/2024 2:40 PM EDT Telemedicine Endocrinology [address] [place] [address] Daniel Franco MD [address] [place] [address] 10/15/2024 3:30 PM EDT Office Visit Neurology [facility] [address] [place] [address] [place] [address] Mariya Harding PA-C [address] [facility] [place] [address] 10/21/2024 12:10 PM EDT Office Visit Family Practice, [place] [address] [place] [phone] Elida Lance DO [address] [place] [address] 02/03/2026 2:20 PM EST Office Visit Dermatology, [place] [address] [place] [phone] Yessi Morton PA-C [address] [place] [address] [place] [address] Scheduled Procedures Name Priority Associated Diagnoses Date/Ti [...] 03/21/2024 024, 02/03/2019, 09/05/2017, Additional history exists GFR 04/19/2024 10/18/2023, 08/0 03/2023, 03/20/2023, Additional history exists CKD HGB USE SMARTSET 04452 10/02/202410/02, 08/14/2022, 03/16/2022, Additional history exists CKD PHOS USE SMARTSET 06283 10/17/202410/02, 03/16/2022, 02/09/2021, Additional history exists Cologuard [...] this encounter Medical Devices Implanted Type Area Paper Finisher Device Identifier Shelf Expiration Date Model / Serial / Lot Graft Infuse Bone Sm [id number] - [id number] Implanted:Qt y: 1 on 02/22/2012 at OR [facility] N/A: Spine Lumbar [employer] : NEUROLOGIC PAIN 08/01/2014 [id number] / / [id number] Screw 6x45 Poly Si [id number] - [id number] Implanted:Qt y: 2 on 02/22/2012 at OR [facility] N/A: Spine Lumbar JNJ : [employer] [id number] / / Screw 7x35 Poly Si [id number] - [id number] Implanted:Qt y: 2 on 02/22/2012 at OR [facility] N/A: Spine Lumbar JNJ : [employer] [id number] / / Asif 5.5x55 Ti Prbnt [id number] - [id number] Implanted:Qt y: 2 on 02/22/2012 at OR [facility] N/A: Spine Lumbar JNJ : DEPU[employer] SPINE [id number] / / Screw Set Sng Inner [id number] - [id number] Implanted:Qt y: 4 on 02/22/2012 at OR [facility] N/A: Spine Lumbar JNJ : DEPUY SPINE [id number] / / Cage 28x8 Leopard [id number] - [id number] Implanted:Qt y: 1 on 02/22/2012 at OR [facility] N/A: Spine Lumbar JNJ : [employer] [id number] / / Implant Brst Mod Cls Pro 360cc - [id number] Implanted:Qt y: 1 on 11/12/2012 at OR [facility] Right: Breast MENTOR KRISSY 09/11/2017 [id number] / [id number] / [id number] Implant Brst Mod Cls Pro 360cc - [id number] Implanted:Qt y: 1 on 11/12/2012 at OR [facility] Left: Breast MENT[employer] KRISSY 08/12/2017 [id number] / [id number] / [id number] 4.0 X 14 Variable Self Starting Screw Implanted:Qt y: 4 on 02/05/2020 by Luis Eduardo Ross MD at OR [facility] N/A: Spine Cervical KWADWO [id number] / / 1 Level 20mm [place] Plate Implanted:Qt y: 1 on 02/05/2020 by Luis Eduardo Ross MD at OR [facility] N/A: Spine Cervical KWADWO [id number] / / [id number] Al[place]ian Implanted:Qt y: 1 on 02/05/2020 by Luis Eduardo Ross MD at OR [facility] N/A: Spine Cervical KWADWO [id number] / / Description:alctuian cage 2.5cc Vitoss Bimodal Foam Pack Implanted:Qt y: 1 on 02/05/2020 by Luis Eduardo Ross MD at OR [facility] N/A: Spine Cervical KWADWO [id number] 11/29/2020 [id number] / [id number] / [id number] Sling Desara One - [id number] Implanted:Qt y: 1 on 08/31/2022 by Chico Perry MD at OR [facility] N/A: Vagina [employer] 08/10/2023 [id number] / / [id number] documented as of this encounter Advance Directives [...] and were consensually agreed upon. Care Teams Taper/Finisher Relationship Specialty Start Date End Date Eilda Lance DO PCP - General Family Medicine 11/03/19 documented as of this encounter
--- OUTSIDE RECORDS SUMMARY | 2024-06-26 12:50 | External Medical Summary ---
Author Name Unknown Address Unknown Organization K01:[facility] [address] [place] [address] Laboratory Report Ordering Provider Test Date Status CRISTAL WILDE 06/02/2024 12:42:18 Final Warfarin Therapy
INR: 2 .0-3.0 conventional anticoagulation
INR: 2.5- 3.5 high intensity anticoagulation Observation Date Value Abnormality Reference (Units ) Status PT 06/02/2024 12:42:18 12.8 11.6-15.2 (seconds) Final INR 06/02/2024 12:42:18 1.0 0.8-1.2 Final Performing Location [facility] [address] [place] [address]
--- OUTSIDE RECORDS SUMMARY | 2024-06-26 12:50 | External Medical Summary | Summary of Care ---
Author Name Unknown Organization [facility] Address [address] [facility] [place] [address] Phone [phone] Care Team Providers Care Punch Finisher Name Role Phone Elida Lance DO Primary Care Provider Reason for Visit * - Authorized Specialty Diagnoses / Procedures Referred By Traci rizzo Referred To Contact Referral ID Status Reason Start Date Expiration Date V isits Requested Visits Authorized [id number] Authorized 11/03/2023 11/01/[phone] Encounter Details Date Type Department Care Team (Late st Contact Info) Description 05/28/2024 1:00 PM EDT Telemedicine Psychiatry, [facility] [address] [place] [address] Brooke Deluca CRNP [address] [place] [address] Major depressive disorder, recurrent episode, moderate (HCC)* Allergies Active Allergy Reactions Criticality Noted Date Comments Nsaids 02/01/2020 Hx gastric bypass Other Allergy (See Comments) Rash Medium 013 Dermabond prineo Penicillins 10/04/1999 Rash, last dose was in her 20's Sulfa Antibiotics 10/04/1999 Rash in her early 20's documented as of this encounter (statuses as of 05/29/2024) Medications MULTIVITAMINS PO CAPS Take 1 Capsule [...] as of this encounter (statuses as of 05/29/2024) Active Problems Problem Noted Date Diagnosed Date [...] disease), lumbar 11/21/19 12 MEYER Confirmation Research Other*[id number] 11/2009 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 B12 malabsorption s/p gastric bypass 07/14/2002 Allergic rhinitis 02/12/2002 Dyslipidemia, goal LDL below 130 12/04/2001 Chronic rhinitis HTN, goal below 140/90 Spinal stenosis, lumbar Spondylolisthesis documented as of this encounter (statuses as of 05/29/2024) Resolved Problems Problem Noted Date Diagnosed Date [...] as of this encounter (statuses as of 05/29/2024) Immunizations Name Administration Dates Next Due COVID-19 [...] of Assessment Author No 08/14/2013 3:36 PM RAKESHT Tarik Gold RN documented as of this encounter Mental Status * Because of a physical, mental, or emotional condition, do you have serious difficulty concentrating, remembering, or making decisions? (5 years old or older) Answer Entry Date Author No 08/14/2013 3:36 PM EDT Tarik Gold RN documented in this encounter Progress Notes * Brooke Deluca CRNP - 05/28/2024 12:41 PM EDT OUTPATIENT PSYCHIATRY RETURN VISIT DIVISION OF PSYCHIATRY [place] [address] Name: Martha Lawson : 1960 Date and Time Patient was Seen: 05/28/2024 at 12:42 PM Patient location: HOME. I was not in a hospital or clinic location. After connecting through televideo, patient was verified with two unique identifiers. 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 Methods to assure confidentiality were taken. Patient acknowledged consent and understanding of privacy and security of the Telemedicine visit. The patient agreed to participate. Start Time: 12:30 pm Stop Time: 1:00 pm Physical Location of patient: Home CC: I am hanging in INTERVAL HISTORY: Patient states that she was told by her surgery office that she may be able to stay in a rehab to recover from surgery next month and that has alleviated a large amount of stress as she was worried about all the time they stayed home to work. She would like to meet again shortly after the surgery. States that medication is correctly dose and would not like an adjustment. States that she is not having any new depressive or anxious symptoms. Pt denies current or recent active or passive suicidal ideation. Denies experiencing any current or recent AVH, paranoia, and no other delusions endorsed. No signs or symptoms suggesting the presence of terri or psychosis present on exam today. Describes sleep and appetite as WNL. Discussed risks and benefits of medications. Discussed how to contact S[employer]REE [employer] if needed through My Chart. DX MDD, recurrent, severe KATE MEDICATIONS CONTINUE TrIntellix 20 mg QD CONTINUE Trazodone 150 mg QHS CONTINUE Ativan 0.5 mg QHS PRN for anxiety CONTINUE Wellbutrin SR 100 mg BID ALLERGIES Review of patient's allergies indicates: Allergen Reactions Other Allergy (See Comments) Rash Dermabond prineo Nsaids Hx gastric bypass Penicillins Rash, last dose was in her 20's Sulfa Antibiotics Rash in her early 20's CURRENT MEDICATIONS: Current Outpatient Medications Medication Sig Dispense Refill MULTIVITAMINS PO CAPS Take 1 Capsule by mouth every evening. [facility]S IRON 45 MG PO TABS Take 1 Tablet by mouth in the morning. Pantoprazole Sodium 40 MG Oral Tablet Delayed Release (Protonix) TAKE ONE TABLET BY MOUTH TWICE A DAY 30 MINUTES BEFORE MEALS; DO NOT CRUSH, CUT OR CHEW (Patient taking differently: Take 1 Tablet by mouth in the morning.) 180 Tablet 2 Hair Skin & Nails Advanced Oral Tablet Take 1 Tablet by mouth daily. Lisinopril 2.5 MG Oral Tablet (Prinivil) Take 1/2 tablet by mouth daily 45 Tablet 3 LORazepam 0.5 MG Oral Tablet (Ativan) Take 1 Tablet by mouth as needed for Anxiety. (Patient takingdifferently: Take 0.5 Tablets by mouth as needed for Anxiety.) 15 Tablet 2 Primidone 50 MG Oral Tablet (Mysoline) Take one-half tablet by mouth twice daily 180 Tablet 0 traZODone HCl 150 MG Oral Tablet (Desyrel) Take 1 Tablet by mouth at bedtime. 90 Tablet 1 Metoprolol Tartrate 25 MG Oral Tablet (Lopressor) TAKE ONE-HALF TABLET BY MOUTH IN THE MORNING AND ONE-HALF TABLET BEFORE BEDTIME 90 Tablet 2 Alendronate Sodium 70 MG Oral Tablet (Fosamax) Take 1 Tablet by mouth once a week. 12 Tablet 3 Trintellix 20 MG Oral Tablet (Vortioxetine HBr) Take 1 Tablet by mouth in the morning. 90 Tablet 1 buPROPion HCl 100 MG Oral Tablet (Wellbutrin) Take 1 Tablet by mouth in the morning and 1 Tablet before bedtime. 60 Tablet 2 Vitamin D-[address] 25 MCG (1000 UT) Oral Tablet (Cholecalciferol) Take 1 Tablet by mouth every evening. AZO Cranberry 250-30 MG Oral Tablet Take 1 Tablet by mouth daily. Calcium Citrate-Vitamin D 500-10 MG-MCG Oral Tablet Chewable Take 1 Tablet by mouth 2 times a day. Continuation of patient use of medical marijuana is approved Use as directed. Biofreeze Roll-On 4 % External Gel (Menthol (Topical Analgesic)) Apply topically to affected area. Apply topically to affected areas as needed Dry Eye Relief Drops 0.2-0.2-1 % Ophthalmic Solution (Cjweexyd-Hlqozmcpbvry-SFJ 400) Instill 1 Dropinto eye as needed for Dry eyes. Potassium Chloride Erin ER 10 MEQ Oral Tablet Extended Release TAKE ONE TABLET BY MOUTH EVERY DAY 100 Tablet 1 oxyBUTYnin Chloride ER 15 MG Oral Tablet Extended Release 24 Hour (Ditropan XL) Take 2 Tablets by mouth in the morning. 180 Tablet 3 Metoclopramide HCl 5 MG Oral Tablet (Reglan) Take 1 Tablet by mouth every 4 hours as needed for Nausea. 20 Tablet 0 No current facility-administered medications for this visit. Facility-Administered Medications Ordered in Other Visits Medication Dose Route Frequency Provider Last Rate Last Admin glycopyrrolate (ROBINUL) inj Once PRN Tj Rincon CRNA 0.6 mg at 02/22/12 1103 neostigmine methylsulfate (PROSTIGMIN) 1 MG/ML inj Once PRN Tj Rincon CRNA 3 mg at 02/22/12 1103 RECENT LABS/IMAGING: No results found for this or any previous visit (from the past 4 weeks). VITALS There were no vitals filed for this visit. Wt Readings from Last 3 Encounters: 04/03/24 56.5 kg (124 lb 9.6 oz) 10/16/23 62.2 kg (137 lb 1.6 oz) 09/18/23 61.2 kg (134 lb 14.4 oz) There is no height or weight on file to calculate BMI. CURRENT MEDICATIONS: Current Outpatient Medications Medication Sig Dispense Refill MULTIVITAMINS PO CAPS Take 1 Capsule by mouth every evening. CVS IRON 45 MG PO TABS Take 1 Tablet by mouth in the morning. Pantoprazole Sodium 40 MG Oral Tablet Delayed Release (Protonix) TAKE ONE TABLET BY MOUTH TWICE A DAY 30 MINUTES BEFORE MEALS; DO NOT CRUSH, CUT OR CHEW (Patient taking differently: Take 1 Tablet by mouth in the morning.) 180 Tablet 2 Hair Skin & Nails Advanced Oral Tablet Take 1 Tablet by mouth daily. Lisinopril 2.5 MG Oral Tablet (Prinivil) Take 1/2 tablet by mouth daily 45 Tablet 3 LORazepam 0.5 MG Oral Tablet (Ativan) Take 1 Tablet by mouth as needed for Anxiety. (Patient takingdifferently: Take 0.5 Tablets by mouth as needed for Anxiety.) 15 Tablet 2 Primidone 50 MG Oral Tablet (Mysoline) Take one-half tablet by mouth twice daily 180 Tablet 0 traZODone HCl 150 MG Oral Tablet (Desyrel) Take 1 Tablet by mouth at bedtime. 90 Tablet 1 Metoprolol Tartrate 25 MG Oral Tablet (Lopressor) TAKE ONE-HALF TABLET BY MOUTH IN THE MORNING AND ONE-HALF TABLET BEFORE BEDTIME 90 Tablet 2 Alendronate Sodium 70 MG Oral Tablet (Fosamax) Take 1 Tablet by mouth once a week. 12 Tablet 3 Trintellix 20 MG Oral Tablet (Vortioxetine HBr) Take 1 Tablet by mouth in the morning. 90 Tablet 1 buPROPion HCl 100 MG Oral Tablet (Wellbutrin) Take 1 Tablet by mouth in the morning and 1 Tablet before bedtime. 60 Tablet 2 Vitamin D-[address] 25 MCG (1000 UT) Oral Tablet (Cholecalciferol) Take 1 Tablet by mouth every evening. AZO Cranberry 250-30 MG Oral Tablet Take 1 Tablet by mouth daily. Calcium Citrate-Vitamin D 500-10 MG-MCG Oral Tablet Chewable Take 1 Tablet by mouth 2 times a day. Continuation of patient use of medical marijuana is approved Use as directed. Biofreeze Roll-On 4 % External Gel (Menthol (Topical Analgesic)) Apply topically to affected area. Apply topically to affected areas as needed Dry Eye Relief Drops 0.2-0.2-1 % Ophthalmic Solution (Ghiiosif-Neuxonyiohvu-IUC 400) Instill 1 Dropinto eye as needed for Dry eyes. Potassium Chloride Erin ER 10 MEQ Oral Tablet Extended Release TAKE ONE TABLET BY MOUTH EVERY DAY 100 Tablet 1 oxyBUTYnin Chloride ER 15 MG Oral Tablet Extended Release 24 Hour (Ditropan XL) Take 2 Tablets by mouth in the morning. 180 Tablet 3 Metoclopramide HCl 5 MG Oral Tablet (Reglan) Take 1 Tablet by mouth every 4 hours as needed for Nausea. 20 Tablet 0 No current facility-administered medications for this visit. Facility-Administered Medications Ordered in Other Visits Medication Dose Route Frequency Provider Last Rate Last Admin glycopyrrolate (ROBINUL) inj Once PRN Tj Rincon [employer]IONER 0.6 mg at 02/22/12 1103 neostigmine methylsulfate (PROSTIGMIN) 1 MG/ML inj Once PRN Tj Rincon [employer]ER 3 mg at 02/22/12 1103 FAMILY HISTORY: Family History Problem Relation Name Age of Onset Other (ovarian ca[Other]) Mother Thyroid Disorder Mother Cancer Mother Barby Fye Ovarian Ear Problems Mother Barby Fye Thyroid Disorder Mother Barby Fye Allergies Mother Barby Fye Heart Disorder Father triple by pass Lung Disorder Father sleep apnea Glaucoma Father B. [place] F[place] Heart Disorder Father B. [place] Fye Hypertension Father B. [place] Fye Other (barber siri[Other]) Brother bilateral hip replacement Heart Disorder Grandmother (Maternal) Saba Coyneon Hypertension Grandmother (Maternal) Saba Coyneon Arthritis Grandmother (Maternal) Saba Coyneon Diabetes Grandmother (Maternal) Saba De Dios Heart Disorder Grandfather (Maternal) Bharath Coyneon Hypertension Grandfather (Maternal) Bharath De Dios Cancer Grandmother (Paternal) [place] Fye Breast Heart Disorder Grandfather (Paternal) Go [...] Other Other (dm[Other]) Other Other (cva[Other]) Other PAST MEDICAL HISTORY: Past Medical History: Diagnosis Date Allergic rhinitis Asthma, allergic no significant exacerbations since bypass ; 2004 Backache 03/04/1990 Backache Depressive disorder, not elsewhere classified 03/04/1984 Depression Fibromyalgia Gastritis and gastroduodenitis 02/27/2007 mild chronic gastritis GERD (gastroesophageal reflux disease) HTN (hypertension) INFORMATION chronic rhinitis Migraine Obesity, BMI not known life long seen at the high risk obsity clinic in [facility] Pancreatitis Spinal stenosis, lumbar Spondylolisthesis SUMMARY OF/CHANGES TO PAST PSYCHIATRIC, MEDICAL, FAMILY, OR SOCIAL HISTORY: See interval history MEDICAL REVIEW OF SYSTEMSAA See medical notes MENTAL STATUS EVALUATION: Appearance: casually dressed Muscle strength and tone: no abnormal involuntary movements noticeable Gait and Station: not assessed, patient seen via teleconference Behavior: cooperative Speech: normal, rate, tone and volume Mood: anxious Affect: type - euthymic; range - full range; lability - no Associations: intact Thought Process: goal directed Abstract Reasoning: intact Thought Content: denies suicidal ideations, homicidal ideations, auditory hallucinations, visual hallucinations, delusions, impulsivity to act out or preoccupation with violence Orientation: alert and oriented to person, place, time and situation Attention span/concentration as evidenced by: ability to sustain attention to examiner - intact Insight: good Judgment: good ASSESSMENT AND PLAN: Treatment options and alternatives reviewed with patient who agrees with the above plan. Information about current medications was provided to the patient including reasons why medications are being used. Patient understood the risks, benefits, side-effects, and potential complications associated with changes in medications being proposed (both medications being started, and medications being discontinued or having dose changed). Patient is making an informed medical decision to follow the recommendations outlined in this note. Directed pt to call with any questions or concerns, worsening symptoms and/or ask for earlier appointment. Greater than 50% of the time was spent counseling or coordinating the care of the patient Risk assessment was performed. This is a patient being treated for chronic mental health conditionsand/or substance use disorder as characterized above; at the time of this visit, there was no indication that this patient was either a risk to self, others, or gravely disabled by symptoms of a mental illness or substance use disorder. At the time of this evaluation, pt did not appear to be an acute risk to self or others, there were enough protective factors in place, and it was deemed safe andappropriate to continue with treatment on an outpatient basis with return to clinic in the timeframe described above. We reviewed previous crisis plan should he/she experience worsening of symptoms before next follow-up appointment, including being aware of what resources to use according to the urgency and severityof symptoms. Martha G Rogeliolyle was able to verbalize understanding of the steps necessary to obtain help between appointments should be needed, from requesting a phone call, to requesting an appointment sooner, including reaching clinic after hours, accessing our system, and accessing emergency mental health and medical services, either at a local emergency department or by activating mobile crisis teams and EMS. Time Spent on Visit: 30 minutes Please note 17 minutes of counseling time over and above medication management was spent on Billing code: [id number] and [id number] ANEUDY Maciel Psychiatrist, [facility] 05/28/2024 documented in this encounter Plan of Treatment Upcoming Encounters Date Type Department Care Team (Late st Contact Info) Description 06/02/2024 11:30 AM EDT Office Visit Orthopaedics Spine Surgery, [place] [address] [place] [address] Suzette Alcala PA-C [address], [place] [id number] 06/05/2024 12:30 PM EDT Telemedicine [facility] [address] [place] [address] Roly Miller, [facility] [address] [place] [address] 06/19/2024 10:54 AM EDT Hospital Encounter [facility], OPERATING ROOM [facility], HAMILTON GARCIA [address] [place] [address] Joseph Giordano MD [address] [place] [address] 06/19/2024 10:54 AM EDT - 06/19/2024 2:01 PM EDT Surgery [facility], OPERATING ROOM [facility], [facility] [address] [place] [phone] Joseph Giordano MD [address] [place] [address] ARTHRODESIS SPINE POSTERIOR OR POSTERIOR LATERAL WITH LAMINECTOMY LUMBAR, COMBINED 07/15/2024 2:00 PM EDT Telemedicine Psychiatry, [facility] [address] [place] [address] Brooke Deluca CRNP [address] [place] [address] 07/23/2024 1:00 PM EDT Telemedicine Nutrition Services [address] [place] [address] Jasvir Johnson, [address] [place] [address] [place] [address] 10/07/2024 2:40 PM EDT Telemedicine Endocrinology [address] [place] [phone] Daniel Franco MD [address] [place] [address] 10/15/2024 3:30 PM EDT Office Visit Neurology Nina [place] [place] [address] [place], [place] [id number] Mariya Harding PA-C [address] [address] 10/21/2024 12:10 PM EDT Office Visit [facility] [address] [facility] [place] [phone] Elida Lance DO [address] [place] [id number] 02/03/2026 2:20 PM EST Office Visit [facility] [address] [place] [phone] Yessi Morton PA-C [address] [place] [address] [place] [id number] Scheduled Procedures Name Priority Associated Diagnoses Date/Ti [...] Additional history exists CKD HGB USE SMARTSET 05307 10/02/202410/02, 08/14/2022, 03/16/2022, Additional history exists CKD PHOS USE SMARTSET 67558 10/17/202410/02, 03/16/2022, 02/09/2021, Additional history exists Cologuard [...] this encounter Medical Devices Implanted Type Area White Washer Device Identifier Shelf Expiration Date Model / Serial / Lot Graft Infuse Bone Sm [id number] - [id number] Implanted:Qt y: 1 on 02/22/2012 at OR [facility] N/A: Spine Lumbar [employer] : NEUROLOGIC PAIN 08/01/2014 [id number] / / [id number] Screw 6x45 Poly Si [id number] - [id number] Implanted:Qt y: 2 on 02/22/2012 at OR [facility] N/A: Spine Lumbar JNJ : [employer] [id number] / / Screw 7x35 Poly Si [id number] - [id number] Implanted:Qt y: 2 on 02/22/2012 at OR [facility] N/A: Spine Lumbar JNJ : ETH[employer]ON [employer]ATIONS [id number] / / Asif 5.5x55 Ti Prbnt [id number] - [id number] Implanted:Qt y: 2 on 02/22/2012 at OR [facility] N/A: Spine Lumbar JNJ : DEPUY SPINE [id number] / / Screw Set Sng Inner [id number] - [id number] Implanted:Qt y: 4 on 02/22/2012 at OR [facility] N/A: Spine Lumbar JNJ : DEPUY SPINE [id number] / / Cage 28x8 Leopard [id number] - [id number] Implanted:Qt y: 1 on 02/22/2012 at OR [facility] N/A: Spine Lumbar JNJ : ETH[employer] [id number] / / Implant Brst Mod Cls Pro 360cc - [id number] Implanted:Qt y: 1 on 11/12/2012 at OR [facility] Right: Breast MENTOR KRISSY 09/11/2017 [id number] / [id number] / [id number] Implant Brst Mod Cls Pro 360cc - [id number] Implanted:Qt y: 1 on 11/12/2012 at OR [facility] Left: Breast MENTOR KRISSY 08/12/2017 350-7360 / [id number] / [id number] 4.0 X 14 Variable Self Starting Screw Implanted:Qt y: 4 on 02/05/2020 by Luis Eduardo Ross MD at OR [facility] N/A: Spine Cervical KWADWO [id number] / Level 20mm Osborne View Plate Implanted:Qt y: 1 on 02/05/2020 by Luis Eduardo Ross MD at OR [facility] N/A: Spine Cervical KWADWO [id number] / / [id number] Alcutian Implanted:Qt y: 1 on 02/05/2020 by Luis Eduardo Ross MD at OR [facility] N/A: Spine Cervical KWADWO [id number] / / Description:alctuian cage 2.5cc Vitoss Bimodal Foam Pack Implanted:Qt y: 1 on 02/05/2020 by Luis Eduardo Ross MD at OR [facility] N/A: Spine Cervical KWADWO [id number] 11/29/2020 [id number] / [id number] / [id number] Sling Andrzej One - [id number] Implanted:Qt y: 1 on 08/31/2022 by Chico Perry MD at OR [facility] N/A: Vagina [employer] 08/10/2023 [id number] / / [id number] documented as of this encounter Visit Diagnoses Diagnosis Spinal stenosis, lumbar- Primary Spinal stenosis, lumbar region, without neurogenic claudication Major depressive disorder, recurrent episode, moderate (HCC)- Primary Major depressive disorder, recurrent episode, moderate Spinal stenosis of lumbar region with neurogenic [...] and were consensually agreed upon. Care Teams Punch Finisher Relationship Specialty Start Date End Date Elida Lance DO [address] [id number] PCP - General Family Medicine 05/22/24 documented as of this encounter
--- OUTSIDE RECORDS SUMMARY | 2024-06-26 12:50 | External Medical Summary ---
Author Name Unknown Address Unknown Organization K01:[facility] [place] [facility] [address] [address] Laboratory Report Ordering Provider Test Date Status CRISTAL WILDE 06/02/2024 12:42:18 Final Observation Date Value Abnormality Reference (Units ) Status HbA1C 06/02/2024 12:42:18 4.8 4.0-5.6 (% ) Final The use of HbA1c to monitor glycemic status is based on normal hemoglobin and HbA composition. This test should not be used in patients with abnormal hemoglobin that affects the half life of the red blood cell or the in vivo glycation rates. Glucose, estimated average 06/02/2024 12:42:18 91 <126 (mg/dL) Final Performing Location [facility] [place] [address] [place] [address]
--- OUTSIDE RECORDS SUMMARY | 2024-06-26 12:50 | External Medical Summary | Summary of Care ---
Author Name Unknown Organization [facility] Address [address] [facility] [place] [address] Phone [phone] Care Team Providers Care Event Marketing Assistant Name Role Phone Elida Lance DO Primary Care Provider [phone] Reason for Visit * Reason Onset Date Comments Medication Refill 05/21/2024 Encounter Details Date Type Department Care Team (Late st Contact Info) Description 05/21/2024 Refill [facility] Alexlyle Kwon [address] [address] Elida Lance DO [address] [place] [address] Allergies Active Allergy Reactions Criticality Noted Date Comments Nsaids 02/01/2020 Hx gastric bypass Other Allergy (See Comments) Rash Medium 013 Dermabond prineo Penicillins 10/04/1999 Rash, last dose was in her 20's Sulfa Antibiotics 10/04/1999 Rash in her early 20's documented as of this encounter (statuses as of 05/22/2024) Medications MULTIVITAMINS PO CAPS Take 1 Capsule [...] Tablet 03/13/2024 2:46 PM EST 10/16/19 24 Active traZODone HCl 150 MG Oral Tablet [...] 12 Tablet 3 03/02/2024 10:19 AM EST 02/27/20 24 Active Trintellix 20 MG Oral [...] mouth in the morning. 180 Tablet 3 05/20/19 25 Active Metoclopramide HCl 5 MG Oral Tablet (Reglan) Take 1 Tablet by mouth every 4 hours as needed for Nausea. 20 Tablet 05/22/19 25 Active Metoclopramide HCl 5 MG Oral Tablet (Reglan) Take 1 Tablet by mouth every 4 hours as needed for Nausea. 20 Tablet 07/20/19 23 025 Discontin ued(Refil l) documented as of this encounter (statuses as of 05/22/2024) Active Problems Problem Noted Date Diagnosed Date [...] disease), lumbar 11/21/19 12 [facility]ER Confirmation Research Other*[id number] 06/0 11/2009 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 B12 malabsorption s/p gastric bypass 07/14/2002 Allergic rhinitis 02/12/2002 Dyslipidemia, goal LDL below 130 12/04/2001 Chronic rhinitis HTN, goal below 140/90 Spinal stenosis, lumbar Spondylolisthesis documented as of this encounter (statuses as of 05/22/2024) Resolved Problems Problem Noted Date Diagnosed Date [...] as of this encounter (statuses as of 05/22/2024) Immunizations Name Administration Dates Next Due COVID-19 [...] encounter Miscellaneous Notes * Telephone Encounter - Leslie Muniz PA-C - 05/21/2024 4:18 PM EDTSigned Prescriptions: Disp Refills Metoclopramide HCl 5 MG Oral Tablet (Verónica*20 Tab*0 Sig: Take 1Tablet by mouth every 4 hours as needed for Nausea.Authorizing Provider: LESLIE MUNIZ--------- * Telephone Encounter - Leslie Muniz PA-C - 05/21/2024 4:18 PM EDT There are no diagnoses linked to this encounter. Leslie Muniz PA-C 05/21/2024 4:18 PM Inboxologist Note: * Telephone Encounter - Trang Jack LPN - 05/21/2024 2:49 PM EDTPending Prescriptions: Disp Refills Metoclopramide HCl 5 MG Oral Tablet (Verónica*20 Tab*0 Sig: Take 1 Tablet by mouth every 4 hours as needed for Nausea. * Telephone Encounter - Domenic Reynolds - 05/21/2024 1:30 PM EDTPending Prescriptions: Disp Refills Metoclopramide HCl 5 MG Oral Tablet (Verónica*20 Tab*0 Sig: Take 1Tablet by mouth every 4 hours as needed for Nausea. documented in this encounter Plan of Treatment Upcoming Encounters Date Type Department Care Team (Late st Contact Info) Description 05/28/2024 1:00 PM EDT Telemedicine Psychiatry, [place] [address] [facility] [place] [phone] Brooke Deluca CRNP [address] [facility] [place] [phone] 06/02/2024 11:30 AM EDT Office Visit Orthopaedics Spine Surgery, [address] [address] Suzette Alcala PA-C [address] [facility], [place] [id number] 06/05/2024 12:30 PM EDT Telemedicine [facility] [address] [place] [address] Roly Miller Matt, [facility] [address] [place] [address] 06/19/2024 10:54 AM EDT Hospital Encounter [place] [facility] [address] [place] [address] Joseph Giordano MD [address] [place] [address] 06/19/2024 10:54 AM EDT - 06/19/2024 2:01 PM EDT Surgery [place] [facility] [address] [place] [phone] Joseph Giordano MD [address] [place] [address] ARTHRODESIS SPINE POSTERIOR OR POSTERIOR LATERAL WITH LAMINECTOMY LUMBAR, COMBINED 07/23/2024 1:00 PM EDT Telemedicine Nutrition Services [address] [place] [address] Jasvir Johnson, RDN [address] [place] [address] 10/07/2024 2:40 PM EDT Telemedicine Endocrinology [address] [place] [address] Daniel Franco MD [address] [place] [address] 10/15/2024 3:30 PM EDT Office Visit Neurology [facility] [address] [place] [place] [address] Mariya Harding PA-C [address] [place] [address] 10/21/2024 12:10 PM EDT Office Visit Family Practice, [place] Kwon [address] [facility] [place] [address] Elida Lance DO [address] [facility] [place] [address] 02/03/2026 2:20 PM EST Office Visit Dermatology, [place] [address] [facility] [place] [address] Yessi Morton PA-C [address] [place] [address] [place] [phone] Scheduled Procedures Name Priority Associated Diagnoses Date/Ti [...] 09/05/2017, Additional history exists GFR 04/19/2024 10/18/2023, 0803/2023, 03/20/2023, Additional history exists CKD HGB USE SMARTSET 62560 10/02/202410/02, 08/14/2022, 03/16/2022, Additional history exists CKD PHOS USE SMARTSET 13853 10/17/202410/02, 03/16/2022, 02/09/2021, Additional history exists Cologuard [...] this encounter Medical Devices Implanted Type Area Office Spec Device Identifier Shelf Expiration Date Model / Serial / Lot Graft Infuse Bone Sm [id number] - [id number] Implanted:Qt y: 1 on 02/22/2012 at [place] [facility] N/A: Spine Lumbar MEDTRONIC : NEUROLOGIC PAIN 08/01/2014 [id number] / / [id number] Screw 6x45 Poly Si [id number] - [id number] Implanted:Qt y: 2 on 02/22/2012 at [place] [facility] N/A: Spine Lumbar JNJ : ETHICON CARDIOVATIONS [id number] / / Screw 7x35 Poly Si [id number] - [id number] Implanted:Qt y: 2 on 02/22/2012 at [place] [facility] N/A: Spine Lumbar JNJ : ETHICON CARDIOVATIONS [id number] / / Asif 5.5x55 Ti Prbnt [id number] - [id number] Implanted:Qt y: 2 on 02/22/2012 at [place] [facility] N/A: Spine Lumbar JNJ : DEPUY SPINE [id number] / / Screw Set Sng Inner [id number] - [id number] Implanted:Qt y: 4 on 02/22/2012 at OR [facility] N/A: Spine Lumbar JNJ : DEPUY SPINE [id number] / / Cage 28x8 Leopard [id number] - [id number] Implanted:Qt y: 1 on 02/22/2012 at [place] [facility] N/A: Spine Lumbar JNJ : ETHICON CARDIOVATIONS [id number] / / Implant Brst Mod Cls Pro 360cc - [id number] Implanted:Qt y: 1 on 11/12/2012 at [place] [facility] Right: Breast MENTOR KRISSY 09/11/2017 [id number] / [id number] / [id number] Implant Brst Mod Cls Pro 360cc - [id number] Implanted:Qt y: 1 on 11/12/2012 at [place] [facility] Left: Breast MENTOR KRISSY 08/12/2017 [id number] / [id number] / [id number] 4.0 X 14 Variable Self Starting Screw Implanted:Qt y: 4 on 02/05/2020 by Luis Eduardo Ross MD at OR [facility] N/A: Spine Cervical KWADWO [id number] / / 1 Level 20mm [place] View Plate Implanted:Qt y: 1 on 02/05/2020 by Luis Eduardo Ross MD at OR [facility] N/A: Spine Cervical KWADWO [id number] / / [id number] Alcutian Implanted:Qt y: 1 on 02/05/2020 by Luis Eduardo Ross MD at OR [facility] N/A: Spine Cervical KWADWO [id number] / / Description:alctuian cage 2.5cc Vitoss Bimodal Foam Pack Implanted:Qt y: 1 on 02/05/2020 by Luis Eduardo Ross MD at OR [facility] N/A: Spine Cervical KWADWO [id number] 11/29/2020 [id number] / [id number] / [id number] Sling Desara One - [id number] Implanted:Qt y: 1 on 08/31/2022 by Chico Perry MD at OR [facility] N/A: Vagina [employer] 08/10/2023 [id number] / / [id number] documented as of this encounter Advance Directives [...] and were consensually agreed upon. Care Teams Event Marketing Assistant Relationship Specialty Start Date End Date Elida Lance DO PCP - General Family Medicine 11/03/19 documented as of this encounter
--- OUTSIDE RECORDS SUMMARY | 2024-06-26 12:50 | External Medical Summary | Summary of Care ---
Author Name Unknown Organization [facility] Address [address] [facility] [place] [address] Phone [phone] Care Team Providers Care Shop Welder Name Role Phone Elida Lance DO Primary Care Provider [phone] Reason for Visit * Reason Comments Follow Up Anxiety Depression * - Authorized Specialty Diagnoses / Procedures Referred By Traci rizzo Referred To Contact Referral ID Status Reason Start Date Expiration Date V isits Requested Visits Authorized [id number] Authorized 11/03/2023 11/01/2024 [id number] Encounter Details Date Type Department Care Team (Late st Contact Info) Description 04/16/2024 12:30 PM EST Telemedicine [facility], [place] [address] [place] [address] Roly Miller, [facility] [address] [place] [address] Borderline personality disorder (HCC)* Allergies [...] needed for Nausea. 20 Tablet 07/20/19 23 Active Pantoprazole Sodium 40 MG Oral Tablet [...] BY MOUTH EVERY DAY 100 Tablet 1 01/29/2024 1:33 PM EST 04/17/19 24 025 Discontin ued(Refil l) oxyBUTYnin Chloride ER 15 MG Oral Tablet Extended Release 24 Hour (Ditropan XL)Indications:U rinary urgency,Urge incontinence of urine Take 2 Tablets by mouth in the morning. 180 Tablet 3 02/28/2024 10:23 AM EST 06/07/19 24 025 Discontin ued(Refil l) documented as [...] DDD (degenerative disc disease), lumbar 11/21/19 12 [place] Confirmation Research Other*[id number] 11/2009 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 B12 malabsorption [...] mRNA, LNP-s, No Pre serve, 2-Dose Series (Thrill) 12/08/2020,11/17/2020 Pneumococcal Conjugate Vacc, 13 Valent (Prevnar) 07/09/2016 Pneumococcal Polysaccharide PPV23 (Pneumovax) 08/21/2013 Seasonal Influenza Vac., MDV , IM, 0.5 mL (Fluzone) 11/13/2011,02/06/2010,03/02/2009,01/12,12/04/2006,03/08/2006 Seasonal Influenza, PF, 6 M & above, IM , (FluLaval or Fluzone) 03/20/2023,01/31/2022,02/09/2021,01/04,12/19/2017 Seasonal Influenza, Quadriva lent, No Preserve, IM 11/16/2016,11/16/2015 Seasonal Influenza, Trivalen t, (IIV3), PF, (Fluzone) 03/24/2024 TD - Tetanus/Diptheria (ADULT) 01/02/1995 TD, Preservative Free 01/11/2005 TDAP (age 10 and older)(Boostrix) 02/18/2023 TDAP, [...] documented in this encounter Progress Notes * Paul Roly Gutierrez, CARDROOM MANAGER - 04/16/2024 12:20 PM EST Patient location: HOME. I was not in a hospital or clinic location. After connecting through [email or web address], patient was verified with two unique identifiers. Patient (or authorized legal technical service representative) was then informed that this was a Telemedicine visit and being conducted confidentially over secure lines. Methods to assure confidentiality were taken. Patient acknowledged consent and understanding of privacy and security of the Telemedicine visit. The patient agreed to participate. Start Time: 12:20 pm Stop Time: 1:07 pm Total direct time: 47 minutes BEHAVIORAL MEDICINE RETURN VISIT PROGRESS NOTE Sonia Perez [address] [place] [address] [place] [address] 04/16/2024 12:20 PM TYPE OF VISIT: Individual DIAGNOSIS: Borderline personality disorder (HCC) (Primary) REASON FOR SESSION: Individual therapy Session #: 24 SESSION FOCUS: depression and anxiety NOTES: Therapist met with patient to complete an individual session. Patient processed depression and anxiety. Patient denied any SI/HI. Patient Patient denied any self-harm. Patient reported she is having surgery on her back on June 19, 2024. Patient stated she also hasan appointment to get, "New teeth", next week. Patient reported she is not anxious about the procedure itself, but anxious, "About preparing for it". This technical publications writer suggested making a list doing one task per day. Patient reported her son has not been talking to the patient. Patient reported her son has not responded to her texts, where she let him know about her upcoming back surgery. The patient reported it hurts her to not hear from her son. This technical publications writer validated the patient's feelings, but discussed focusing on controlling the patient's own behavior and not that of others and assertively addressing if she does hear from her son. Patient reported otherwise she is doing well. Patient and therapist identified the following strengths [...] Insight/Judgment: good PROGRESS TOWARDS GOALS: Patient reported increased depression and increased anxiety since the last session with this technical publications writer. Goal: Improved self-management of depression and anxiety Objective Measures: Patient Health Questionnaire 9 & Generalized Anxiety Disorder 7 Over the last 2 weeks or more, how often have you been bothered by any of the following problems? 0-1-2-3 1. Little interest or pleasure in doing things 3 2. Feeling down, depressed, or hopeless 3 [...] in some way 0 PHQ-9 TOTAL SCORE 11 1. Feeling nervous, anxious, or on edge 2 2. Been unable to control or stop worrying 0 3. Worried too much about different things 0 4. Trouble relaxing 0 5. Been so restless that it is hard to sit still 0 6. Becoming easily annoyed or irritable 0 7. Feeling afraid as if something awful might happen 0 KATE-7 TOTAL SCORE 2 Patient Health Questionnaire (PHQ-9): 11 (Moderate 10-14) PHQ-9, item 9 = 0 Generalized Anxiety Disorder (KATE-7): 2 (Minimal 0-4) C-SSRS administered: Yes [place] Suicide Severity Rating Scale Results 04/16/2024 12:22 [place] SUICIDE SEVERITY RATING SCALE (C-SSRS) Have [...] same as last session (see note dated 03/27/2024 for further details) Safety Plan: Crisis Plan [...] Hospital [facility] -Crisis Services 2. [facility] Division of Psychiatry: [phone] 3. [place] Suicide Prevention Lifeline: or 988 4. [place] Crisis Text Line: Text HOME to 916817 5. 911 or proceed to the nearest emergency room Step 6: Keeping the environment safe: Plan for restricting access to lethal means (firearms, medications). N/A INTERVENTION: labeling emotions, processing, clarification. CBT TREATMENT PLAN: Outpatient Adult Therapy Treatment Plan [...] ED, hotlines): Suicide and Crisis Lifeline - [address] [place] [address] Crisis Contact [place] [phone] [facility] -Crisis Services, and Clinic number: [phone] and Suicide Safety Plan Signature Obtained on [...] clinical assessment: PHQ-9 Adult Data KATE-7 Data [place] Suicide Screen Data Discharge Discussed with patient: Patient continues to need treatment Collaboration of Care: Yes, provider within [facility], information is shared automatically in medical record Is this the patients' initial treatment plan? No FOLLOW-UP PLAN: Return: 2 weeks Appointment: 04/30/2024 at 2:30 pm Action Plan: 1. Continue Cognitive Behavioral Therapy 2. Continue medication management with ANEUDY Maciel Treatment plan reviewed with the patient. Patient voices understanding and concurs with plan. PATIENT EDUCATION: Verbal & written Roly Miller [facility] Division of Psychiatry & Behavioral Medicine [facility] [phone] [place] Suicide Prevention Lifeline : 294 Crisis Textline : Text "HOME" to 368092 to connect with a crisis counselor Crisis Numbers by [facility]: [place] [facility] Services - Emergency Services [facility] (545-4-YOU CAN) resolve Crisis Network [facility] . The Open Door - Crisis Intervention [place] [facility] Crisis Help-Line [facility] - Crisis Intervention Services [facility] Service Access [employer] - Crisis Intervention [place] Choose option 1 - [facility] Department of Cloth Finishing Range Operator Chief Carline Lopez & Zeeshan Crisis Intervention [place] [facility] - Mental Health Crisis Garber [facility] - Crisis Intervention [place] [facility] - Crisis Intervention Jonathan Whitehead Potter - Crisis Line Matthias [place]es [place] - Mental Health Crisis Hotline [place] [facility] - Crisis Services [facility] Service Access [employer], [employer] - Crisis Intervention Krysten - Mental Health Crisis Intervention Services [facility] MH/ID Program Joshua Myers Snyder, [place] - Crisis System Ald[place] [facility] - Crisis Hotline [facility] (8-464-304-HELP) [facility] - Crisis Intervention [facility] - Crisis Intervention [facility] - Crisis Services [place] [facility] Health - Crisis Center [place] [facility] - Crisis Hotline Radha (8:30 am-5:00 pm) OR (after 5:00 pm, weekends & holidays) Jefry & Barbara [facility] Crisis Intervention Program [place] [facility] - Mental Health Crisis Line Alison Newton and Sandra - [facility] Crisis Tunde & Brittni [facility] - Crisis Intervention [place] [facility] - Mental Health Crisis Service [facility] - Crisis Intervention Avis [facility] - Crisis Intervention Patrick & Kallie [facility] - Help Line [facility] MH/ID Program Keisha [facility] - Crisis Intervention Mikana [facility] - Crisis Intervention [place] [facility] Emergency Services, [facility] - Crisis Intervention [facility] Health - Emergency Services [place] [facility] - Crisis Line Pierce - DBHIDS - Suicide and Crisis Intervention Hotline [facility] - Crisis/ Emergency Services Velma [facility] - Emergency Contact Line [place] [facility] - Crisis Line [place] ext. 1 [facility] Human Services [facility] Behavioral Health Services [facility] Action - Crisis Intervention Hotline [place] [facility] Crisis Intervention Services documented in this encounter Plan of Treatment Upcoming Encounters Date Type Department Care Team (Late st Contact Info) Description 05/28/2024 1:00 PM EDT Telemedicine Psychiatry, [place] [address] [place] [phone] Brooke Deluca CRNP [address] [place], [place] [phone] 06/02/2024 11:30 AM EDT Office Visit Orthopaedics Spine Surgery, [place] [address] [place] [phone] Suzette Alcala PA-C [address] [place], [place] [phone] 06/05/2024 12:30 PM EDT Telemedicine Psychology, [place] [address] [place] [phone] Roly Miller LCSW [address] [place] [address] 06/19/2024 10:54 AM EDT Hospital Encounter [place] [facility]PER[facility]OM [facility] [address] [facility] [place] [address] Joseph Giordano MD [address] [place], [place] [phone] 06/19/2024 10:54 AM EDT - 06/19/2024 2:01 PM EDT Surgery OR [facility], OPERATING ROOM [facility] [address] [facility] [place] [address] Joseph Giordano MD [address] [place], [place] [phone] ARTHRODESIS SPINE POSTERIOR OR POSTERIOR LATERAL WITH LAMINECTOMY LUMBAR, COMBINED 07/23/2024 1:00 PM EDT Telemedicine Nutrition Services [address] [place] [address] Jasvir Johnson, N [address] [place] [address] [place] [address] 10/07/2024 2:40 PM EDT Telemedicine Endocrinology Jam[address] [address] Daniel Franco MD [address] [place] [address] [address] 10/15/2024 3:30 PM EDT Office Visit Neurology Nina Alston [place] [address] [place] [address] Mariya Harding PA-C [address] [place] [address] 10/21/2024 12:10 PM EDT Office Visit [facility] [address] [facility] [place] [address] Elida Lance DO [address] [place] [address] 02/03/2026 2:20 PM EST Office Visit DermatologyRoyal [address] [place] [address] Yessi Morton PA-C [address] [place] [address] [place] [address] Scheduled Procedures Name Priority Associated Diagnoses Date/Ti [...] Additional history exists CKD HGB USE SMARTSET 01055 10/02/202410/02, 08/14/2022, 03/16/2022, Additional history exists CKD PHOS USE SMARTSET 73142 10/17/202410/02, 03/16/2022, 02/09/2021, Additional history exists Cologuard [...] this encounter Medical Devices Implanted Type Area Cardio Tech Device Identifier Shelf Expiration Date Model / Serial / Lot Graft Infuse Bone Sm [id number] - [id number] Implanted:Qt y: 1 on 02/22/2012 at OR [facility] N/A: Spine Lumbar [employer] : NEUROLOGIC PAIN 08/01/2014 [id number] / / [id number] Screw 6x45 Poly Si [id number] - [id number] Implanted:Qt y: 2 on 02/22/2012 at OR [facility] N/A: Spine Lumbar JNJ : ETHICON CARDIOVATIONS [id number] / / Screw 7x35 Poly Si [id number] - [id number] Implanted:Qt y: 2 on 02/22/2012 at OR [facility] N/A: Spine Lumbar JNJ : ETHICON CARDIOVATIONS [id number] / / Asif 5.5x55 Ti Prbnt [id number] - [id number] Implanted:Qt y: 2 on 02/22/2012 at OR [facility] N/A: Spine Lumbar JNJ : DEPUY SPINE [id number] / / Screw Set Sng Inner [id number] - [id number] Implanted:Qt y: 4 on 02/22/2012 at OR [facility] N/A: Spine Lumbar JNJ : DEPUY SPINE [id number] / / Cage 28x8 Leopard [id number] - [id number] Implanted:Qt y: 1 on 02/22/2012 at OR [facility] N/A: Spine Lumbar JNJ : ETHICON CARD[employer]ATIONS [id number] / / Implant Brst Mod Cls Pro 360cc - [id number] Implanted:Qt y: 1 on 11/12/2012 at OR [facility] Right: Breast [employer] KRISSY 09/11/2017 350-7360 / [id number] / [id number] Implant Brst Mod Cls Pro 360cc - [id number] Implanted:Qt y: 1 on 11/12/2012 at OR [facility] Left: Breast MENTOR KRISSY 08/12/2017 350-7360 / [id number] / [id number] 4.0 X 14 Variable Self Starting Screw Implanted:Qt y: 4 on 02/05/2020 by Luis Eduardo Ross MD at OR [facility] N/A: Spine Cervical KWADWO [id number] / Level 20mm [place] View Plate Implanted:Qt y: 1 on 02/05/2020 by Luis Eduardo Ross MD at OR [facility] N/A: Spine Cervical KWADWO [id number] / / [id number] Alcutian Implanted:Qt y: 1 on 02/05/2020 by Luis Eduardo Ross MD at OR [facility] N/A: Spine Cervical KWADWO [id number] / / Description:alctuian cage 2.5cc Vitoss Bimodal Foam Pack Implanted:Qt y: 1 on 02/05/2020 by Luis Eduardo Ross MD at OR [facility] N/A: Spine Cervical KWADWO [id number] 11/29/2020 [id number] / [id number] / [id number] Sling Andrzej One - [id number] Implanted:Qt y: 1 on 08/31/2022 by Chico Perry MD at OR [facility] N/A: Vagina [employer] 08/10/2023 [id number] / / [id number] documented as of this encounter Visit Diagnoses [...] and were consensually agreed upon. Care Teams Shop Welder Relationship Specialty Start Date End Date Elida Lance DO PCP - General Family Medicine 11/03/19 documented as of this encounter
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
--- OUTSIDE RECORDS SUMMARY | 2024-06-26 12:51 | External Medical Summary | Summary of Care ---
Author Name Unknown Organization [facility] Address [address] [facility] [place] [address] Phone [phone] Care Team Providers Care Marketing Professor Name Role Phone Elida Lance DO Primary Care Provider [phone] Reason for Visit * Reason Onset Date Comments Health Maintenance 2024 Encounter Details Date Type Department Care Team (Late st Contact Info) Description [address] [facility], [place] [address] [address] Elida Lance DO [address] [address] Health Maintenance Allergies Active Allergy Reactions Criticality Noted Date Comments Nsaids 02/01/2020 Hx gastric bypass Other Allergy (See Comments) Rash Medium 013 Dermabond prineo Penicillins 10/04/1999 Rash, last dose was in her 20's Sulfa Antibiotics 10/04/1999 Rash in her early 20's documented as of this encounter (statuses as of 2024) Medications MULTIVITAMINS PO CAPS Take 1 Capsule [...] Take 1 Tablet by mouth daily. Active Potassium Chloride Erin ER 10 MEQ Oral Tablet Extended ReleaseIndicatio ns:Hypopotassemi a TAKE ONE TABLET BY MOUTH EVERY DAY 100 Tablet 1 01/29/2024 1:33 PM EST 4 05/09/19 25 Active oxyBUTYnin Chloride ER 15 MG Oral [...] ONE-HALF TABLET BEFORE BEDTIME 90 Tablet 2 01/29/2024 9:33 AM EST 4 Active Alendronate Sodium 70 [...] eye as needed for Dry eyes. Active documented as of this encounter (statuses as of 2024) Active Problems Problem Noted Date Diagnosed Date [...] disease), lumbar 11/21/19 12 [facility] Confirmation Research Other*[id number] 06/0 11/2009 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 B12 malabsorption s/p gastric bypass 07/14/2002 Allergic rhinitis 02/12/2002 Dyslipidemia, goal LDL below 130 12/04/2001 Chronic rhinitis HTN, goal below 140/90 Spinal stenosis, lumbar Spondylolisthesis documented as of this encounter (statuses as of 2024) Resolved Problems Problem Noted Date Diagnosed Date [...] as of this encounter (statuses as of 2024) Immunizations Name Administration Dates Next Due COVID-19 [...] Answer Date Recorded PHQ Adult Total Score 14 12/26/2023 Hunger Vital Sign Answer Date Recorded Within the past 12 months, y ou worried that your food would run out before you got the money to buy more. Never true 10/23/19 24 Within the past 12 months, t he food you bought just didn't last and you didn't have money to get more. Never true 10/23/2023 Childcare Answer Date Recorded Do you feel overwhelmed with taking care of a child, family member or friend? No 10/23/2023 Does your family need help f inding childcare? (Household - for ages 0-17 years) Not on file 10/23/2023 Clothing Answer Date Recorded Have you been unable to get clothing when it was really needed? No 10/23/2023 Is your family able to get c lothes or diapers when needed? (Household - for ages 0-17 years) Not on file 10/23/2023 Personal Safety Answer Date Recorded Do you feel unsafe or have concerns for your saf ety? No 10/23/2023 Do you have concerns for you r family's safety? (Household - for ages 0-17 years) Not on file 10/23/2023 Utilities Answer Date Recorded Do you have trouble paying y our heating, water, or electric bill? Yes 10/23/2023 Is your family able to pay t he heat, water, or electric bill? (Household - for ages 0-17 years) Not on file 10/23/2023 Does your family have access to good internet? (Household - for ages 0-17 years) Not on file 10/23/2023 Employment Status Answer Date Recorded Are you unemployed or without regular income? No 10/23/2023 Does the household have a re lar source of income? (Household - for ages 0-17 years) Not on file 10/23/2023 Social Connections Answer Date Recorded How often do you feel lonely or isolated from th ose around you? Often 10/23/2023 Financial Resource Strain Answer Date R ecorded Do you have any trouble payi ng for your medications, or do you think you might in the future? No 10/23/2023 Does your family have troubl e paying for medicine? (Household - for ages 0-17 years) Not on file 10/23/2023 Transportation Needs Answer Date Record ed Do you have trouble getting a ride to medical visits or work? (Adult - for ages 18 years and over) Not on file 10/23/2023 Does your family have a hard time getting a ride to doctors visits? (Household - for ages 0-17 years) Not on file 10/23/2023 Has lack of transportation k ept you from medical appointments, meetings, work, or from getting things needed for daily living? Check all that apply. No 10/23/2023 Do you (or your family) have trouble finding or paying for a ride (transportation)? (Household - for ages 0-17 years) Not on file 10/23/2023 Housing Stability Answer Date Recorded Do you currently live in a s helter or have no steady place to sleep at night? No 10/23/2023 Do you think you are at risk of becoming homeless? (Adult - for ages 18 years and over) Not on file 10/23/2023 Does your family worry about paying for your home or becoming homeless? (Household - for ages 0-17 years) Not on file 0 10/23/2023 Are you homeless or worried that you might be in the future? No 10/23/2023 Are you (or your family) arjun eless [...] the money to buy more. Never true 10/23/19 24 Within the past 12 months, t he food you bought just didn't last and you didn't have money to get more. Never true 10/23/2023 Do you need food for this week? No 10/23/2023 Comments No Sex and Gender Information Value [...] documented in this encounter Miscellaneous Notes * Addendum Note - Aaron Abraham LPN - 2024 11:53 AM ESTAddended by: AARON ABRAHAM on: 2024 11:53 AM Modules accepted: Orders * Telephone Encounter - Aaron Abraham LPN - 2024 9:13 AM EST Care Gaps Comprehensive Care Outreach Last Office/Telemedicine Visit: 04/03/2024 (in office), Visit date not found (telemedicine) Next Office Visit: 10/21/2024 Hemoglobin AIC Results: Lab Results Component Value Date/Time HEMOGLOBIN A1C - [facility] 5.4 12/01/2019 04:42 PM HEMOGLOBIN A1C - [facility] 5.4 04/08/2019 04:25 PM HEMOGLOBIN A1C - [facility] 5.3 04/13/2015 10:22 AM BP Readings from Last 1 Encounters: 04/03/24 133/84 Reviewed Health Maintenance below: Health Maintenance Topic Date Due Mammogram 08/09/2017 Pneumococcal Vaccine: 50+ Years (3 of 3 - PCV20 or PCV21) 07/09/2021 COVID-19 Vaccine (3 - season) 2023 Albumin/Creatinine Ratio 03/21/2024 GFR 04/19/2024 CKD HGB USE SMARTSET 99574 10/02/2024 CKD PHOS USE SMARTSET 79262 10/17/2024 Mamm Labs aug Care Gap Outreach Action Taken: Left message and MyChart message sent documented in this encounter Plan of Treatment Upcoming Encounters Date Type Department Care Team (Late st Contact Info) Description 04/30/2024 2:30 PM EST Telemedicine Psychology, [place] [address] [facility] [place] [address] Roly Miller, RECORDS MANAGEMENT CLERK [address] [place] [address] 05/13/2024 1:00 PM EDT Telemedicine Nutrition Services [address] [place] [address] Jasvir Johnson, RDN [address] [place] [address] [place] [address] 05/20/2024 11:00 AM EDT Telemedicine Psychology [place] [address] [place] [address] Ale Arroyo PsyD [address] [place] [address] 05/28/2024 1:00 PM EDT Telemedicine Psychiatry, [place] [address] [facility] [place] [address] Brooke Deluca CRNP [address] [place] [address] 06/02/2024 11:30 AM EDT Office Visit Orthopaedics Spine Surgery, [address] [address] Suzette Alcala PA-C [address] [facility], [place] [id number] 06/19/2024 10:54 AM EDT Hospital Encounter OR [facility], OPERATING ROOM [facility], [facility] [address] [facility] [place] [phone] Joseph Giordano MD [address] [facility] [place] [address] 06/19/2024 10:54 AM EDT - 06/19/2024 2:01 PM EDT Surgery OR [facility], OPERATING ROOM [facility], [facility] [address] [place] [address] Joseph Giordano MD [address] [place], [place] [id number] ARTHRODESIS SPINE POSTERIOR OR POSTERIOR LATERAL WITH LAMINECTOMY LUMBAR, COMBINED 10/07/2024 2:40 PM EDT Telemedicine Endocrinology [address] [place] [address] Daniel Franco MD [address] [id number] 10/15/2024 3:30 PM EDT Office Visit Neurology [facility] [place] [address] [place] [address] Mariya Harding PA-C [address] [address] 10/21/2024 12:10 PM EDT Office Visit [facility] 226 [facility] [place] [address] Elida Lance DO 226 [facility] [place] [address] 02/03/2026 2:20 PM EST Office Visit Dermatology, [address] [address] Yessi Morton PA-C [address] [place] [address] [place] [id number] Scheduled Orders Name Type Priority Associated Diagnoses Orde r Schedule PHOSPHORUS Lab Routine Chronic kidney disease, unspecified CKD stage Expected: 10/12/2024, Expires: 2025 CBC Lab Routine Chronic kidney disease, unspecified CKD stage Expected: 10/12/2024, Expires: 2025 COMPREHENSIVE METABOLIC PANEL Lab Routine Chronic kidney disease, unspecified CKD stage Expected: 10/12/2024, Expires: 2025 ALBUMIN / CREATININE RATIO, URINE Lab Routine Chronic kidney disease, unspecified CKD stage Expected: 10/12/2024 (Approximate), Expires: 2025 Scheduled Procedures Name Priority Associated Diagnoses Date/Ti [...] Additional history exists CKD HGB USE SMARTSET 34244 10/02/202410/02, 08/14/2022, 03/16/2022, Additional history exists CKD PHOS USE SMARTSET 99373 10/17/202410/02, 03/16/2022, 02/09/2021, Additional history exists Depression Monitoring 01/01/2025 01/02/2024, 024 Cologuard 04/04/2025 04/04/2022, 03/05, 03/27/2022 Colorectal Cancer Screening 04/04/2025 Diabetes Screening 10/17/2026 10/18/2023, 0 10/03/2023, 03/20/2023, [...] this encounter Medical Devices Implanted Type Area Director Of Operations Device Identifier Shelf Expiration Date Model / Serial / Lot Graft Infuse Bone Sm [id number] - [id number] Implanted:Qt y: 1 on 02/22/2012 at OR [facility] N/A: Spine Lumbar [employer] : NEUROLOGIC PAIN 08/01/2014 [id number] / / [id number] Screw 6x45 Poly Si [id number] - [id number] Implanted:Qt y: 2 on 02/22/2012 at OR [facility] N/A: Spine Lumbar JNJ : ETH[employer]ON [employer] [id number] / / Screw 7x35 Poly Si [id number] - [id number] Implanted:Qt y: 2 on 02/22/2012 at OR [facility] N/A: Spine Lumbar JNJ : ETHICON CARDIOVATIONS [id number] / / Asif 5.5x55 Ti Prbnt [id number] - [id number] Implanted:Qt y: 2 on 02/22/2012 at OR [facility] N/A: Spine Lumbar JNJ : DEPUY SPINE [id number] / / Screw Set Sng Inner [id number] - [id number] Implanted:Qt y: 4 on 02/22/2012 at OR [facility] N/A: Spine Lumbar JNJ : DEPUY SPINE [id number] / / Cage 28x8 Leopard [id number] - [id number] Implanted:Qt y: 1 on 02/22/2012 at OR [facility] N/A: Spine Lumbar JNJ : ETHICON CARDI[employer]ATIONS [id number] / / Implant Brst Mod Cls Pro 360cc - [id number] Implanted:Qt y: 1 on 11/12/2012 at OR [facility] Right: Breast MENTOR KRISSY 09/11/2017 [id number] / [id number] / [id number] Implant Brst Mod Cls Pro 360cc - [id number] Implanted:Qt y: 1 on 11/12/2012 at OR [facility] Left: Breast MENTOR KRISSY 08/12/2017 350-7360 / [id number] / [id number] 4.0 X 14 Variable Self Starting Screw Implanted:Qt y: 4 on 02/05/2020 by Luis Eduardo Ross MD at OR [facility] N/A: Spine Cervical KWADWO [id number] / / 1 Level 20mm [place] View Plate Implanted:Qt y: 1 on 02/05/2020 by Luis Eduardo Ross MD at OR [facility] N/A: Spine Cervical KWADWO [id number] / / [id number] Alcutian Implanted:Qt y: 1 on 02/05/2020 by Luis Eduardo Ross MD at OR [facility] N/A: Spine Cervical KWADWO [id number] / / Description:alctuian cage 2.5cc Vitoss Bimodal Foam Pack Implanted:Qt y: 1 on 02/05/2020 by Luis Eduardo Ross MD at OR [facility] N/A: Spine Cervical KWADWO [id number] 11/29/2020 [id number] / [id number] / [id number] Sling Desara One - [id number] Implanted:Qt y: 1 on 08/31/2022 by Chico Perry MD at OR [facility] N/A: Vagina [employer] 08/10/2023 [id number] / / [id number] documented as of this encounter Visit Diagnoses Diagnosis Spinal stenosis, lumbar- Primary Spinal stenosis, lumbar region, without neurogenic claudication Chronic kidney disease, unspecified CKD stage- Primary Spinal stenosis of lumbar region with neurogenic [...] and were consensually agreed upon. Care Teams Marketing Professor Relationship Specialty Start Date End Date Elida Lance DO PCP - General Family Medicine 11/03/19 documented as of this encounter
--- OUTSIDE RECORDS SUMMARY | 2024-06-26 12:51 | External Medical Summary | Summary of Care ---
Author Name Unknown Organization [facility] Address [address] [facility] [place] [address] Phone [phone] Care Team Providers Care Industrial Court Magistrate Name Role Phone Elida Lance DO Primary Care Provider [phone] Reason for Visit * Reason Onset Date Comments Health Maintenance 2024 Encounter Details Date Type Department Care Team (Late st Contact Info) Description 2024 Telephone [facility], [place] [address] [address] Elida [...] disease), lumbar 11/21/19 12 [facility] Confirmation Research Other*[id number] 06/0 11/2009 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 B12 [...] 03/21/2024 GFR 04/19/2024 CKD HGB USE SMARTSET 51089 10/02/2024 CKD PHOS USE SMARTSET 20631 10/17/2024 Mamm [facility] aug Care Gap Outreach Action Taken: Left message and MyChart message sent documented in this encounter Plan of Treatment Upcoming Encounters Date Type Department Care Team (Late st Contact Info) Description 04/30/2024 2:30 PM EST Telemedicine Psychology, [place] [address] [facility] [place] [address] Roly Miller, CLAIMS CORRESPONDENCE CLERK [address] [place] [address] 05/13/2024 1:00 PM EDT Telemedicine Nutrition Services [address] [place] [address] Jasvir Johnson, RDN [address] [place] [address] [place] [address] 05/20/2024 11:00 AM EDT Telemedicine Psychology [facility] [address] [place] [address] [place] [address] Ale Arroyo PsyD [address] [place] [address] 05/28/2024 1:00 PM EDT Telemedicine Psychiatry, [place] [address] [facility] [place] [address] Brooke Deluca CRNP [address] [place] [address] 06/02/2024 11:30 AM EDT Office Visit Orthopaedics Spine Surgery, [address] [address] Suzette Alcala PA-C [address] [facility] [id number] 06/19/2024 10:54 AM EDT Hospital Encounter OR [facility], OPERATING ROOM [facility], [facility] [address] [facility] [place] [address] Joseph Giordano MD [address] [facility] [place] [address] 06/19/2024 10:54 AM EDT - 06/19/2024 2:01 PM EDT Surgery OR [facility], OPERATING ROOM [facility] [address] [place] [address] Joseph Giordano MD [address] [place], [place] [address] ARTHRODESIS SPINE POSTERIOR OR POSTERIOR LATERAL WITH LAMINECTOMY LUMBAR, COMBINED 10/07/2024 2:40 PM EDT Telemedicine Endocrinology [address] [place] [address] Daniel Franco MD [address] [id number] 10/15/2024 3:30 PM EDT Office Visit Neurology [facility] [place] [address] [place] [address] Mariya Harding PA-C [address] [address] 10/21/2024 12:10 PM EDT Office Visit [facility] 226 [facility] [place] [address] Elida Lance DO 226 [facility] [place] [address] 02/03/2026 2:20 PM EST Office Visit Dermatology, [address] [address] Yessi Morton PA-C [address] [place] [address] [place] [address] Scheduled Orders Name Type Priority Associated Diagnoses [...] Additional history exists CKD HGB USE SMARTSET 76189 10/02/202410/02, 08/14/2022, 03/16/2022, Additional history exists CKD PHOS USE SMARTSET 43610 10/17/202410/02, 03/16/2022, 02/09/2021, Additional history exists Depression [...] this encounter Medical Devices Implanted Type Area Circuit Board Drafter Device Identifier Shelf Expiration Date Model / Serial / Lot Graft Infuse Bone Sm [id number] - [id number] Implanted:Qt y: 1 on 02/22/2012 at OR [facility] N/A: Spine Lumbar [employer] : NEUROLOGIC PAIN 08/01/2014 [id number] / / [id number] Screw 6x45 Poly Si [id number] - [id number] Implanted:Qt y: 2 on 02/22/2012 at OR [facility] N/A: Spine Lumbar JNJ : ETHICON [employer]ATIONS [id number] / / Screw 7x35 Poly Si [id number] - [id number] Implanted:Qt y: 2 on 02/22/2012 at OR [facility] N/A: Spine Lumbar JNJ : ETHICON CARDIOVATIONS [id number] / / Asif 5.5x55 Ti Prbnt [id number] - [id number] Implanted:Qt y: 2 on 02/22/2012 at OR [facility] N/A: Spine Lumbar JNJ : DEPUY SPINE [id number] / / Screw Set Sng Inner [id number] - [id number] Implanted:Qt y: 4 on 02/22/2012 at OR [facility] N/A: Spine Lumbar JNJ : DEPUY SPINE [id number] / / Cage 28x8 Leopard [id number] - [id number] Implanted:Qt y: 1 on 02/22/2012 at OR [facility] N/A: Spine Lumbar JNJ : ETH[employer]ON CARDI[employer]ATIONS [id number] / / Implant Brst Mod Cls Pro 360cc - [id number] Implanted:Qt y: 1 on 11/12/2012 at OR [facility] Right: Breast M[employer] KRISSY 09/11/2017 350-7360 / [id number] / [id number] Implant Brst Mod Cls Pro 360cc - [id number] Implanted:Qt y: 1 on 11/12/2012 at OR [facility] Left: Breast M[employer] KRISSY 08/12/2017 350-7360 / [id number] / [id number] 4.0 X 14 Variable Self Starting Screw Implanted:Qt y: 4 on 02/05/2020 by Luis Eduardo Ross MD at OR [facility] N/A: Spine Cervical KWADWO [id number] / / 1 Level 20mm [place] View Plate Implanted:Qt y: 1 on 02/05/2020 by Luis Eduardo Ross MD at OR [facility] N/A: Spine Cervical KWADWO [id number] / / [id number] Alcutian Implanted:Qt y: 1 on 02/05/2020 by Luis Eduardo Ross MD at OR [facility] N/A: Spine Cervical KWADWO [id number] / / Description:alctuian cage 2.5cc Vitoss Bimodal Foam Pack Implanted:Qt y: 1 on 02/05/2020 by Luis Eduardo Ross MD at OR [facility] N/A: Spine Cervical KWADWO [id number] 11/29/2020 7984-5349 / [id number] / [id number] Sling Desara One - [id number] Implanted:Qt y: 1 on 08/31/2022 by Chico Perry MD at OR [facility] N/A: Vagina [employer] 08/10/2023 [id number] / / [id number] documented as of this encounter Visit Diagnoses [...] and were consensually agreed upon. Care Teams Industrial Court Magistrate Relationship Specialty Start Date End Date Elida Lance DO PCP - General Family Medicine 11/03/19 documented as of this encounter
--- OUTSIDE RECORDS SUMMARY | 2024-06-26 12:51 | External Medical Summary | Summary of Care ---
Author Name Unknown Organization [facility] Address [address] [facility] [place] [address] Phone [phone] Care Team Providers Care Integrity Assessor Name Role Phone Sheryl Lance DO Primary Care Provider [phone] Reason for Visit * Reason Comments Medication Refill Encounter Details Date Type Department Care Team (Late st Contact Info) Description 05/09/2024 Refill [facility] [place] [address] [place] [address] Sheryl Lance DO [address] [place] [id number] Hypopotassemia Allergies Active Allergy Reactions Criticality Noted Date Comments Nsaids 02/01/2020 Hx gastric bypass Other Allergy (See Comments) Rash Medium 013 Dermabond prineo Penicillins 10/04/1999 Rash, last dose was in her 20's Sulfa Antibiotics 10/04/1999 Rash in her early 20's documented as of this encounter (statuses as of 05/11/2024) Medications MULTIVITAMINS PO CAPS Take 1 Capsule [...] 3 02/28/2024 10:23 AM EST 06/07/19 24 Active Lisinopril 2.5 MG Oral Tablet (Prinivil)Indica [...] BY MOUTH EVERY DAY 100 Tablet 1 05/12/19 25 026 Active Potassium Chloride Erin ER 10 MEQ Oral Tablet Extended ReleaseIndicatio ns:Hypopotassemi a TAKE ONE TABLET BY MOUTH EVERY DAY 100 Tablet 1 01/29/2024 1:33 PM EST 04/17/19 24 025 Discontin ued(Refil l) documented as of this encounter (statuses as of 05/11/2024) Active Problems Problem Noted Date Diagnosed Date [...] disease), lumbar 11/21/19 12 [facility] Confirmation Research Other*[id number] /11/2009 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 B12 malabsorption s/p gastric bypass 07/14/2002 Allergic rhinitis 02/12/2002 Dyslipidemia, goal LDL below 130 12/04/2001 Chronic rhinitis HTN, goal below 140/90 Spinal stenosis, lumbar Spondylolisthesis documented as of this encounter (statuses as of 05/11/2024) Resolved Problems Problem Noted Date Diagnosed Date [...] as of this encounter (statuses as of 05/11/2024) Immunizations Name Administration Dates Next Due COVID-19 [...] encounter Miscellaneous Notes * Telephone Encounter - Shantal Suarez RPh - 05/11/2024 12:50 PM EDTSigned Prescriptions: Disp Refills Potassium Chloride Erin ER 10 MEQ Oral Tab*100 Ta*1 Sig: TAKE ONE TABLET BY MOUTH EVERY DAYAuthorizing Provider: SHERYL LANCE User: SHANTAL SUAREZ-- documented in this encounter Plan of Treatment Upcoming Encounters Date Type Department Care Team (Late st Contact Info) Description 05/13/2024 1:00 PM EDT Telemedicine Nutrition Services [address] [place] [address] Elizabeth Jasvir Oxana, RDN [address] [place] [address] 05/15/2024 12:30 PM EDT Telemedicine Psychology, [place] [address] [place] [address] Roly Miller, TANK CAR RECONDITIONER [address] [place] [address] 05/20/2024 11:00 AM EDT Telemedicine Psychology [facility] [address] [place] [address] Ale Arroyo PsyD [address] [place] [address] 05/28/2024 1:00 PM EDT Telemedicine Psychiatry, [place] [address] [place] [address] Brooke Deluca, ANEUDY [address] [place], [place] [phone] 06/02/2024 11:30 AM EDT Office Visit Orthopaedics Spine Surgery, [place] [address] [place] [address] Suzette Alcala PA-C [address] [place], [place] [phone] 06/19/2024 10:54 AM EDT Hospital Encounter [facility]PERATING ROOM [facility], [facility] [address] [place] [address] Joseph Giordano MD [address] [place], [place] [phone] 06/19/2024 10:54 AM EDT - 06/19/2024 2:01 PM EDT Surgery [facility] [address] [place] [facility] [place] [address] Joseph Giordano MD [address] [place] [address] ARTHRODESIS SPINE POSTERIOR OR POSTERIOR LATERAL WITH LAMINECTOMY LUMBAR, COMBINED 10/07/2024 2:40 PM EDT Telemedicine Endocrinology [address] [place] [address] Daniel Franco MD [address] [place] [address] 10/15/2024 3:30 PM EDT Office Visit Neurology [facility] [place] [address] [facility] [place] [address] Mariya Harding PA-C [address] [facility] [place] [address] 10/21/2024 12:10 PM EDT Office Visit [facility] [address] [facility] [place] [address] Sheryl Lance DO [address] [facility] [address] 02/03/2026 2:20 PM EST [facility] [address] [facility] [place] [address] Yessi Morton PA-C [address] [place] [address] [place] [phone] Scheduled Procedures Name Priority Associated Diagnoses Date/Ti [...] Additional history exists CKD HGB USE SMARTSET 04818 10/02/202410/02, 08/14/2022, 03/16/2022, Additional history exists CKD PHOS USE SMARTSET 30752 10/17/2024 08/1 08/2023, 03/16/2022, 02/09/2021, Additional history exists Cologuard 04/04/2025 [...] this encounter Medical Devices Implanted Type Area Application Manager Device Identifier Shelf Expiration Date Model / Serial / Lot Graft Infuse Bone Sm [id number] - [id number] Implanted:Qt y: 1 on 02/22/2012 at OR [facility] N/A: Spine Lumbar MEDTRONIC : NEUROLOGIC PAIN 08/01/2014 [id number] / / [id number] Screw 6x45 Poly Si [id number] - [id number] Implanted:Qt y: 2 on 02/22/2012 at OR [facility] N/A: Spine Lumbar JNJ : ETHICON CARDIOVATIONS [id number] / / Screw 7x35 Poly Si [id number] - [id number] Implanted:Qt y: 2 on 02/22/2012 at OR [facility] N/A: Spine Lumbar JNJ : ETHICON CARDIOVATIONS [id number] / / Asif 5.5x55 Ti Prbnt [id number] - [id number] Implanted:Qt y: 2 on 02/22/2012 at OR [facility] N/A: Spine Lumbar JNJ : DEPUY SPINE [id number] / / Screw Set Sng Inner [id number] - [id number] Implanted:Qt y: 4 on 02/22/2012 at OR [facility] N/A: Spine Lumbar JNJ : DEPUY SPINE [id number] / / Cage 28x8 Leopard [id number] - [id number] Implanted:Qt y: 1 on 02/22/2012 at OR [facility] N/A: Spine Lumbar JNJ : ETHICON CARDIOVATIONS [id number] / / Implant Brst Mod Cls Pro 360cc - [id number] Implanted:Qt y: 1 on 11/12/2012 at OR [facility] Right: Breast MENTOR KRISSY 09/11/2017 [id number] / [id number] / [id number] Implant Brst Mod Cls Pro 360cc - [id number] Implanted:Qt y: 1 on 11/12/2012 at OR [facility] Left: Breast MENTOR KRISSY 08/12/2017 [id number] / [id number] / [id number] 4.0 X 14 Variable Self Starting Screw Implanted:Qt y: 4 on 02/05/2020 by Luis Eduardo Ross MD at OR [facility] N/A: Spine Cervical KWADWO [id number] A / / 1 Level 20mm [place] Plate Implanted:Qt y: 1 on 02/05/2020 by Luis Eduardo Ross MD at OR [facility] N/A: Spine Cervical KWADWO [id number] / / [id number] ree Alcutian Implanted:Qt y: 1 on 02/05/2020 by Luis Eduardo Ross MD at OR [facility] N/A: Spine Cervical KWADWO [id number] / / Description:alctuian cage 2.5cc Vitoss Bimodal Foam Pack Implanted:Qt y: 1 on 02/05/2020 by Luis Eduardo Ross MD at OR [facility] N/A: Spine Cervical KWADWO [id number] 11/29/2020 [id number] / [id number] / [id number] Rick Donnelly One - [id number] Implanted:Qt y: 1 on 08/31/2022 by Chico Perry MD at OR [facility] N/A: Vagina [employer] 08/10/2023 [id number] / / [id number] documented as of this encounter Visit Diagnoses Diagnosis Spinal stenosis, lumbar- Primary Spinal stenosis, lumbar region, without neurogenic claudication Hypopotassemia Spinal stenosis of lumbar region with neurogenic [...] and were consensually agreed upon. Care Teams Integrity Assessor Relationship Specialty Start Date End Date Sheryl Lance DO PCP - General Family Medicine 11/03/19 documented as of this encounter
--- OUTSIDE RECORDS SUMMARY | 2024-06-26 12:51 | External Medical Summary | Summary of Care ---
Author Name Unknown Organization [facility] Address [address] [facility] [place] [address] Phone [phone] Care Team Providers Care Wet Crown Blocking Operator Name Role Phone Elida Lance DO Primary Care Provider [phone] Reason for Visit * Reason Comments Medication Refill Encounter Details Date Type Department Care Team (Late st Contact Info) Description 05/19/2024 Refill Urogynecology [facility] [address] [place] [address] Alexandrea Pichardo PA-C [address] [place] [address] Urinary urgency; Urge incontinence of urine Allergies Active Allergy Reactions Criticality Noted Date Comments Nsaids 02/01/2020 Hx gastric bypass Other Allergy (See Comments) Rash Medium 013 Dermabond prineo Penicillins 10/04/1999 Rash, last dose was in her 20's Sulfa Antibiotics 10/04/1999 Rash in her early 20's documented as of this encounter (statuses as of 05/19/2024) Medications MULTIVITAMINS PO CAPS Take 1 Capsule [...] morning. 180 Tablet 3 05/20/19 25 Active oxyBUTYnin Chloride ER 15 MG Oral Tablet Extended Release 24 Hour (Ditropan XL)Indications:U rinary urgency,Urge incontinence of urine Take 2 Tablets by mouth in the morning. 180 Tablet 3 02/28/2024 10:23 AM EST 06/07/19 24 025 Discontin ued(Refil l) documented as of this encounter (statuses as of 05/19/2024) Active Problems Problem Noted Date Diagnosed Date [...] disease), lumbar 11/21/19 12 [facility] Confirmation Research Other*[id number] 11/2009 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 B12 malabsorption s/p gastric bypass 07/14/2002 Allergic rhinitis 02/12/2002 Dyslipidemia, goal LDL below 130 12/04/2001 Chronic rhinitis HTN, goal below 140/90 Spinal stenosis, lumbar Spondylolisthesis documented as of this encounter (statuses as of 05/19/2024) Resolved Problems Problem Noted Date Diagnosed Date [...] as of this encounter (statuses as of 05/19/2024) Immunizations Name Administration Dates Next Due COVID-19 mRNA, LNP-s, No Pre serve, 2-Dose Series ([employer] [place]) 12/08/2020,11/17/2020 Pneumococcal Conjugate Vacc, 13 Valent (Prevnar) [...] encounter Miscellaneous Notes * Telephone Encounter - Britney Paz MD - 05/19/2024 12:46 AM EDTSigned Prescriptions: Disp Refills oxyBUTYnin Chloride ER 15 MG Oral Tablet E*180 Ta*3 Sig: Take 2Tablets by mouth in the morning.Authorizing Provider: BRITNEY PAZ documented in this encounter Plan of Treatment Upcoming Encounters Date Type Department Care Team (Late st Contact Info) Description 05/20/2024 11:00 AM EDT Telemedicine Psychology Jamal Silva [address] [place] [phone] Cruz Ale Sagrario, PsyD [address] [place] [address] 05/20/2024 3:30 PM EDT Telemedicine Psychology, [place] [address] [place] [address] Roly Miller, CLINICAL TRIALS ASSISTANT [address] [place] [address] 05/28/2024 1:00 PM EDT Telemedicine Psychiatry, [place] [address] [place] [address] Brooke Deluca CRNP [address] [place], [place] [phone] 06/02/2024 11:30 AM EDT Office Visit Orthopaedics Spine Surgery, [place] [address] [place] [phone] Suzette Alcala PA-C [address] [place], [place] [phone] 06/19/2024 10:54 AM EDT Hospital Encounter [place] [facility] OPERATING ROOM [facility] [address] [place] [address] Joseph Giordano MD [address] [place], [place] [address] 06/19/2024 10:54 AM EDT - 06/19/2024 2:01 PM EDT Surgery [place] [facility], OPERATING ROOM [facility], [facility] [address] [place] [address] Joseph Giordano MD [address] [place], [place] [phone] ARTHRODESIS SPINE POSTERIOR OR POSTERIOR LATERAL WITH LAMINECTOMY LUMBAR, COMBINED 07/23/2024 1:00 PM EDT Telemedicine Nutrition Services [place] [address] [place] [address] Jasvir Johnson, RDN [address] [place] [address] 10/07/2024 2:40 PM EDT Telemedicine Endocrinology [address] [place] [address] Daniel Franco MD [address] [place] [address] 10/15/2024 3:30 PM EDT Office Visit Neurology [facility] [place] 200 [place] [address] Mariya Harding PA-C [facility] [place] [address] 10/21/2024 12:10 PM EDT [facility] [address] [facility] [place] [address] Elida Lance DO [facility] [address] 02/03/2026 2:20 PM EST [facility] [address] [facility] [place] [address] Yessi Morton PA-C [address] [place] [address] [place] [address] Scheduled Procedures Name Priority Associated Diagnoses Date/Ti [...] Additional history exists CKD HGB USE SMARTSET 47819 10/02/202410/02, 08/14/2022, 03/16/2022, Additional history exists CKD PHOS USE SMARTSET 20047 10/17/2024 08/1 08/2023, 03/16/2022, 02/09/2021, Additional history [...] this encounter Medical Devices Implanted Type Area Slurry Control Operator Helper Device Identifier Shelf Expiration Date Model / Serial / Lot Graft Infuse Bone Sm [id number] - [id number] Implanted:Qt y: 1 on 02/22/2012 at [place] [facility] N/A: Spine Lumbar MED[employer] : NEUROLOGIC PAIN 08/01/2014 [id number] / / [id number] Screw 6x45 Poly Si [id number] - [id number] Implanted:Qt y: 2 on 02/22/2012 at [place] [facility] N/A: Spine Lumbar JNJ : ETHICON CARDIOVATIONS [id number] / / Screw 7x35 Poly Si [id number] - [id number] Implanted:Qt y: 2 on 02/22/2012 at [place] [facility] N/A: Spine Lumbar JNJ : ETHICON CARDIOVATIONS [id number] / / Asif 5.5x55 Ti Prbnt [id number] - [id number] Implanted:Qt y: 2 on 02/22/2012 at OR [facility] N/A: Spine Lumbar JNJ : DEPUY SPINE [id number] / / Screw Set Sng Inner [id number] - [id number] Implanted:Qt y: 4 on 02/22/2012 at OR [facility] N/A: Spine Lumbar JNJ : DEPUY SPINE [id number] / / Cage 28x8 Leopard [id number] - [id number] Implanted:Qt y: 1 on 02/22/2012 at [place] [facility] N/A: Spine Lumbar JNJ : ETHICON CARDIOVATIONS [id number] / / Implant Brst Mod Cls Pro 360cc - [id number] Implanted:Qt y: 1 on 11/12/2012 at [place] [facility] Right: Breast MENTOR KRISSY 09/11/2017 [facility]7360 / [id number] / [id number] Implant Brst Mod Cls Pro 360cc - [id number] Implanted:Qt y: 1 on 11/12/2012 at OR [facility] Left: Breast MENTOR KRISSY 08/12/2017 [facility]7360 / [id number] / [id number] 4.0 X 14 Variable Self Starting Screw Implanted:Qt y: 4 on 02/05/2020 by Luis Eduardo Ross MD at OR [facility] N/A: Spine Cervical KWADWO [id number] A / / 1 Level 20mm [place] View Plate Implanted:Qt y: 1 on 02/05/2020 by Luis Eduardo Ross MD at OR [facility] N/A: Spine Cervical KWADWO [id number] / / [id number] ree Alcutian Implanted:Qt y: 1 on 02/05/2020 by Luis Eduardo Ross MD at OR [facility] N/A: Spine Cervical KWADWO [id number] / / Description:alctuian cage 2.5cc Vitoss Bimodal Foam Pack Implanted:Qt y: 1 on 02/05/2020 by Luis Eduardo Ross MD at OR [facility] N/A: Spine Cervical KWADWO [id number] 11/29/2020 0978-4893 / [id number] / [id number] Tishing Andrzej One - [id number] Implanted:Qt y: 1 on 08/31/2022 by Chico Perry MD at OR [facility] N/A: Vagina [employer] 08/10/2023 [id number] / / [id number] documented as of this encounter Visit Diagnoses Diagnosis Spinal stenosis, lumbar- Primary Spinal stenosis, lumbar region, without neurogenic claudication Urinary urgency Urgency of urination Urge incontinence of urine Urge incontinence Spinal stenosis of lumbar region with neurogenic [...] and were consensually agreed upon. Care Teams Wet Crown Blocking Operator Relationship Specialty Start Date End Date Elida Lance DO PCP - General Family Medicine 11/03/19 documented as of this encounter
--- OUTSIDE RECORDS SUMMARY | 2024-06-26 12:51 | External Medical Summary | Summary of Care ---
Author Name Unknown Organization [facility] Address [address] [facility] [place] [address] Phone [phone] Care Team Providers Care Distributor Of Directories Name Role Phone Elida Lance DO Primary Care Provider [phone] Encounter Details Date Type Department Care Team (Late st Contact Info) Description 05/20/2024 Patient Reported Data Patient Survey Ortho FORCE [...] DDD (degenerative disc disease), lumbar 11/21/19 12 [facility] Confirmation Research Other*[id number] 06/11/2009 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 B12 malabsorption [...] Author No 08/14/2013 3:36 PM EDT Tarik Gold, RN * Do you have serious difficulty walking or climbing stairs? (5 years old or older) Answer Date of Assessment Author No 08/14/2013 3:36 PM EDT Tarik Gold, RN * Do you have difficulty dressing or bathing? (5 years old or older) Answer Date of Assessment Author No 08/14/2013 3:36 PM RAKESHT Tarik Gold, RN * Because of a physical, mental, [...] Description 05/20/2024 1:30 PM EDT Telemedicine Psychology, [place] [address] [place] [address] Roly Miller LCSW [address] [place] [address] Borderline personality disorder (HCC)* 05/28/2024 1:00 PM EDT Telemedicine Psychiatry, [place] [address] [place] [address] Brooke Deluca CRNP [address] [place] [address] 06/02/2024 11:30 AM EDT Office Visit Orthopaedics Spine Surgery, [place] [address] [place] [address] Suzette Alcala PA-C [address] [place] [address] 06/19/2024 10:54 AM EDT Hospital Encounter [facility] OPERATING ROOM [facility], [facility] [address] [place] [address] Joseph Giordano MD [address] [place] [address] 06/19/2024 10:54 AM EDT - 06/19/2024 2:01 PM EDT Surgery [facility], OPERATING ROOM [facility], [facility] [address] [facility] [place] [address] Joseph [facility]ordano MD [address] [facility] [id number] ARTHRODESIS SPINE POSTERIOR OR POSTERIOR LATERAL WITH LAMINECTOMY LUMBAR, COMBINED 07/23/2024 1:00 PM EDT Telemedicine Nutrition Services [address] [place] [address] Jasvir Johnson, RDN [address] [place] [address] 10/07/2024 2:40 PM EDT Telemedicine Endocrinology [address] [place] [address] Daniel Franco MD [address] [place] [address] 10/15/2024 3:30 PM EDT Office Visit Neurology [facility] 200 [facility] [place] [address] Mariya Harding PA-C [facility] [place] [address] 10/21/2024 12:10 PM EDT Office Visit Family Practice, [place] [address] [facility] [place] [address] Elida Lance DO [address] [facility] [place] [address] 02/03/2026 2:20 PM EST Office Visit Dermatology, [place] [address] [facility] [place] [address] Yessi Morton PAEfrainC [address] [place] [address] [place] [address] Scheduled Procedures Name Priority Associated Diagnoses [...] - season) 2023 12/08/2020, 11/17/2020 Albumin/Creatinine Ratio 03/21/202403/21/2 024, 02/03/2019, 09/05/2017, Additional history exists GFR 04/19/2024 10/18/2023, 03/2023, 03/20/2023, Additional history exists CKD HGB USE SMARTSET 56529 10/02/202410/02, 08/14/2022, 03/16/2022, Additional history exists CKD PHOS USE SMARTSET 11414 10/17/202410/02, 03/16/2022, 02/09/2021, Additional history exists Cologuard [...] this encounter Medical Devices Implanted Type Area Commercial Development Manager Device Identifier Shelf Expiration Date Model / Serial / Lot Graft Infuse Bone Sm [id number] - [id number] Implanted:Qt y: 1 on 02/22/2012 at OR [facility] N/A: Spine Lumbar [employer] : NEUROLOGIC PAIN 08/01/2014 [id number] / / [id number] Screw 6x45 Poly Si [id number] - [id number] Implanted:Qt y: 2 on 02/22/2012 at OR [facility] N/A: Spine Lumbar JNJ : ETHICON CARDIOVATIONS [id number] / / Screw 7x35 Poly Si [id number] - [id number] Implanted:Qt y: 2 on 02/22/2012 at OR [facility] N/A: Spine Lumbar JNJ : ETHICON CARDIOVATIONS [id number] / / Asif 5.5x55 Ti Prbnt [id number] - [id number] Implanted:Qt y: 2 on 02/22/2012 at OR [facility] N/A: Spine Lumbar JNJ : DEPUY SPINE [id number] / / Screw Set Sng Inner [id number] - [id number] Implanted:Qt y: 4 on 02/22/2012 at OR [facility] N/A: Spine Lumbar JNJ : DEPUY SPINE [id number] / / Cage 28x8 Leopard [id number] - [id number] Implanted:Qt y: 1 on 02/22/2012 at OR [facility] N/A: Spine Lumbar JNJ : ETHICON CARDIOVATIONS [id number] / / Implant Brst Mod Cls Pro 360cc - [id number] Implanted:Qt y: 1 on 11/12/2012 at OR [facility] Right: Breast MENTOR KRISSY 09/11/2017 350-7360 / [id number] / [id number] Implant Brst Mod Cls Pro 360cc - [id number] Implanted:Qt y: 1 on 11/12/2012 at OR [facility] Left: Breast MENTOR KRISSY 08/12/2017 350-7360 / [id number] / [id number] 4.0 X 14 Variable Self Starting Screw Implanted:Qt y: 4 on 02/05/2020 by Luis Eduardo Ross MD at OR [facility] N/A: Spine Cervical KWADWO [id number] A / / 1 Level 20mm Major View Plate Implanted:Qt y: 1 on 02/05/2020 by Luis Eduardo Ross MD at OR [facility] N/A: Spine Cervical KWADWO [id number] / / [id number] Alcutian Implanted:Qt y: 1 on 02/05/2020 by Luis Eduardo Ross MD at OR [facility] N/A: Spine Cervical KWADWO [id number] / / Description:alctuian cage 2.5cc Vitoss Bimodal Foam Pack Implanted:Qt y: 1 on 02/05/2020 by Luis Eduardo Ross MD at OR [facility] N/A: Spine Cervical KWADWO [id number] 11/29/[id number] / [id number] / [id number] Rick Wall - [id number] Implanted:Qt y: 1 on 08/31/2022 by Chico Perry MD at OR [facility] N/A: Vagina [employer] 08/10/2023 [id number] / / [id number] documented as of this encounter Advance Directives [...] and were consensually agreed upon. Care Teams Distributor Of Directories Relationship Specialty Start Date End Date Elida Lance DO PCP - General Family Medicine 11/03/19 documented as of this encounter
--- OUTSIDE RECORDS SUMMARY | 2024-06-26 12:52 | External Medical Summary | Summary of Care ---
Author Name Unknown Organization [facility] Address [address] [place] [address] Phone [phone] Care Team Providers Care Deployment Technician Name Role Phone Elida Lance DO Primary Care Provider [phone] Encounter Details Date Type Department Care Team (Latest Contact Info) Description 04/10/2024 Medication Management Pito [facility] CMR [address], [place] [id number] Brenda Rai, [facility] [address] [place] [phone] Referred for management of medication therapy* Allergies Active Allergy Reactions Criticality Noted Date Comments Nsaids 02/01/2020 Hx gastric bypass Other Allergy (See Comments) Rash Medium 013 Dermabond prineo Penicillins 10/04/1999 Rash, last dose was in her 20's Sulfa Antibiotics 10/04/1999 Rash in her early 20's documented as of this encounter (statuses as of 04/16/2024) Medications MULTIVITAMINS PO CAPS Take 1 Capsule [...] 01/29/2024 1:33 PM EST 04/17/19 24 025 Active oxyBUTYnin Chloride ER 15 MG Oral [...] 90 Tablet 2 01/29/2024 9:33 AM EST 01/26/20 24 Active Alendronate Sodium [...] eye as needed for Dry eyes. Active Calcium-Vitamin D-Minerals 600-400 MG-UNIT Oral Tablet Chewable Take 1 Tablet by mouth 2 times a day. 025 Discontin ued(Medic ation List Clean Up) documented as of this encounter (statuses as of 04/16/2024) Active Problems Problem Noted Date Diagnosed Date [...] disease), lumbar 11/21/19 12 MEYER Confirmation Research Other*[id number] 11/2009 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 B12 malabsorption s/p gastric bypass 07/14/2002 Allergic rhinitis 02/12/2002 Dyslipidemia, goal LDL below 130 12/04/2001 Chronic rhinitis HTN, goal below 140/90 Spinal stenosis, lumbar Spondylolisthesis documented as of this encounter (statuses as of 04/16/2024) Resolved Problems Problem Noted Date Diagnosed Date [...] as of this encounter (statuses as of 04/16/2024) Immunizations Name Administration Dates Next Due COVID-19 [...] No 10/23/2023 Does the household have [facility]? (Household - for ages [...] 08/14/2013 3:36 PM RAKESHT Tarik Gold RN * Do you have [...] of Assessment Author No 08/14/2013 3:36 PM Tarik Flores RN documented as of this encounter Mental Status * Because of a physical, mental, or emotional condition, do you have serious difficulty concentrating, remembering, or making decisions? (5 years old or older) Answer Entry Date Author No 08/14/2013 3:36 PM Tarik Flores RN documented in this encounter Progress Notes * Brenda Rai, [facility] - 04/15/2024 3:30 PM EST Martha Lawson is a 63 year old female. Objective: Review of patient's allergies indicates: Allergen Reactions Other Allergy (See Comments) Rash Dermabond prineo Nsaids Hx gastric bypass Penicillins Rash, last dose was in her 20's Sulfa Antibiotics Rash in her early 20's Current Outpatient Medications - WARNING: List may be incomplete due to filtering Medication Sig Dispense Refill Biofreeze Roll-On 4 % External Gel (Menthol (Topical Analgesic)) Apply topically to affected area. Apply topically to affected areas as needed Calcium Citrate-Vitamin D 500-10 MG-MCG Oral Tablet Chewable Take 1 Tablet by mouth 2 times a day. Continuation of patient use of medical marijuana is approved Use as directed. Dry Eye Relief Drops 0.2-0.2-1 % Ophthalmic Solution (Mkpzkols-Vvbspykrawjz-IQW 400) Instill 1 Dropinto eye as needed for Dry eyes. AZO Cranberry 250-30 MG Oral Tablet Take 1 Tablet by mouth daily. Vitamin D-[address] 25 MCG (1000 UT) Oral Tablet (Cholecalciferol) Take 1 Tablet by mouth every evening. buPROPion HCl 100 MG Oral Tablet (Wellbutrin) Take 1 Tablet by mouth in the morning and 1 Tablet before bedtime. 60 Tablet 2 Trintellix 20 MG Oral Tablet (Vortioxetine HBr) Take 1 Tablet by mouth in the morning. 90 Tablet 1 Alendronate Sodium 70 MG Oral Tablet (Fosamax) Take 1 Tablet by mouth once a week. 12 Tablet 3 Metoprolol Tartrate 25 MG Oral Tablet (Lopressor) TAKE ONE-HALF TABLET BY MOUTH IN THE MORNING AND ONE-HALF TABLET BEFORE BEDTIME 90 Tablet 2 traZODone HCl 150 MG Oral Tablet (Desyrel) Take 1 Tablet by mouth at bedtime. 90 Tablet 1 Primidone 50 MG Oral Tablet (Mysoline) Take one-half tablet by mouth twice daily 180 Tablet 0 LORazepam 0.5 MG Oral Tablet (Ativan) Take 1 Tablet by mouth as needed for Anxiety. (Patient takingdifferently: Take 0.5 Tablets by mouth as needed for Anxiety.) 15 Tablet 2 Lisinopril 2.5 MG Oral Tablet (Prinivil) Take 1/2 tablet by mouth daily 45 Tablet 3 oxyBUTYnin Chloride ER 15 MG Oral Tablet Extended Release 24 Hour (Ditropan XL) Take 2 Tablets by mouth in the morning. 180 Tablet 3 Potassium Chloride Erin ER 10 MEQ Oral Tablet Extended Release TAKE ONE TABLET BY MOUTH EVERY DAY 100 Tablet 1 Pantoprazole Sodium 40 MG Oral Tablet Delayed Release (Protonix) TAKE ONE TABLET BY MOUTH TWICE A DAY 30 MINUTES BEFORE MEALS; DO NOT CRUSH, CUT OR CHEW (Patient taking differently: Take 1 Tablet by mouth in the morning.) 180 Tablet 2 Metoclopramide HCl 5 MG Oral Tablet (Reglan) Take 1 Tablet by mouth every 4 hours as needed for Nausea. 20 Tablet 0 [facility] IRON 45 MG PO TABS Take 1 Tablet by mouth in the morning. MULTIVITAMINS PO CAPS Take 1 Capsule by mouth every evening. Hair Skin & Nails Advanced Oral Tablet Take 1 Tablet by mouth daily. Immunization History Administered Date(s) Administered COVID-19 mRNA, LNP-s, No Preserve, 2-Dose Series ([employer]) 11/17/2020, 12/08/2020 Pneumococcal Conjugate Vacc, 13 Valent (Prevnar) 07/09/2016 Pneumococcal Polysaccharide PPV23 (Pneumovax) 08/21/2013 Seasonal Influenza Vac., MDV, IM, 0.5 mL (Fluzone) 03/08/2006, 12/04/2006, 01/13/2008, 03/02/2009, 02/06/2010, 11/13/2011 Seasonal Influenza, PF, 6 M & above, IM , (FluLaval or Fluzone) 12/19/2017, 01/05/2020, 02/09/2021, 01/31/2022, 03/20/2023 Seasonal Influenza, Quadrivalent, No Preserve, IM 11/16/2015, 11/16/2016 Seasonal Influenza, Trivalent, (IIV3), PF, (Fluzone) 03/24/2024 TD - Tetanus/Diptheria (ADULT) 01/02/1995 TD, Preservative Free 01/11/2005 TDAP (age 10 and older)(Boostrix) 02/18/2023 TDAP, Age 7 and older, IM (Adacel) 02/06/2010 Varicella Zoster Vaccine (Adult) 07/09/2016 Vitamin B12 Injection 08/26/2002, 11/18/2002, 02/18/2003, 05/13/2003, 08/11/2003, 03/15/2004, 12/13/2004, 12/13/2004, 08/27/2005, 03/12/2007, 06/11/2007, 04/05/2008, 07/05/2008, 04/19/2009, 07/22/2009, 10/18/2009, 05/23/2010, 08/16/2010, 11/16/2010, 02/22/2011, 05/29/2011, 08/29/2011, 11/28/2011, 04/01/2012, 06/23/2012, 09/08/2012, 12/22/2012, 03/17/2013, 06/15/2013, 09/16/2013, 12/21/2013, 03/22/2014, 06/22/2014, 09/21/2014, 12/22/2014, 03/28/2015, 06/27/2015 Zoster Vaccine Recombinant (Shingrix) 02/28/2018, 06/17/2018 TMR Interventions Incomplete Encounter MTPs No medication therapy recommendations to display Complete Encounter MTPs No medication therapy recommendations to display Assessment & Plan Indication, effectiveness, safety and convenience of her medications were reviewed today. The patient's medical conditions were assessed, evaluated, and deemed meeting goals of drug therapy, with thefollowing exceptions. Additional Notes: Patient appears adherent denies issues is enrolled in [employer] due: n/a Takeaway Information Who was the recipient of the CMR service: beneficiary Language Template for the Patient Takeaway: Italian I attest that I have reviewed and updated the patient's conditions, allergies, and medications to the best of my ability. Patient provided medication list gathered by: Ruiz Horner RPh 04/15/2024, 3:30 PM documented in this encounter Miscellaneous Notes * MT Personal Medication List - Brenda Rai RPh - 04/15/2024 3:28 PM EST Medication How I take it Why I use it Prescriber Alendronate Sodium 70 MG Oral Tablet (Fosamax) Take 1 Tablet by mouth once a week. bones Daniel Franco MD AZO Cranberry 250-30 MG Oral Tablet Take 1 Tablet by mouth daily. General health self Biofreeze Roll-On 4 % External Gel (Menthol (Topical Analgesic)) Apply topically to affected area. Apply topically to affected areas as needed General health self buPROPion HCl 100 MG Oral Tablet (Wellbutrin) Take 1 Tablet by mouth in the morning and 1 Tablet before bedtime. mood ANEUDY Maciel Calcium Citrate-Vitamin D 500-10 MG-MCG Oral Tablet Chewable Take 1 Tablet by mouth 2 times a day. General health self [facility] IRON 45 MG PO TABS Take 1 Tablet by mouth in the morning. General health self Dry Eye Relief Drops 0.2-0.2-1 % Ophthalmic Solution (Cvkahewn-Mjayjfzpmstt-YYT 400) Instill 1 Dropinto eye as needed for Dry eyes. Dry eyes self Lisinopril 2.5 MG Oral Tablet (Prinivil) Take 1/2 tablet by mouth daily Blood pressure Elida Lance, LORazepam 0.5 MG Oral Tablet (Ativan) Take 1 Tablet by mouth as needed for Anxiety. anxiety ANEUDY Maciel Metoclopramide HCl 5 MG Oral Tablet (Reglan) Take 1 Tablet by mouth every 4 hours as needed for Nausea. nausea Elida Lance DO Metoprolol Tartrate 25 MG Oral Tablet (Lopressor) TAKE ONE-HALF TABLET BY MOUTH IN THE MORNING AND ONE-HALF TABLET BEFORE BEDTIME heart Elida Lance DO MULTIVITAMINS PO CAPS Take 1 Capsule by mouth every evening. General health self oxyBUTYnin Chloride ER 15 MG Oral Tablet Extended Release 24 Hour (Ditropan XL) Take 2 Tablets by mouth in the morning. bladder Alexandrea Pichardo PA-C Pantoprazole Sodium 40 MG Oral Tablet Delayed Release (Protonix) TAKE ONE TABLET BY MOUTH TWICE A DAY 30 MINUTES BEFORE MEALS; DO NOT CRUSH, CUT OR CHEW heartburn Elida Lance DO Potassium Chloride Erin ER 10 MEQ Oral Tablet Extended Release TAKE ONE TABLET BY MOUTH EVERY DAY Low potassium Elida Lance DO Primidone 50 MG Oral Tablet (Mysoline) Take one-half tablet by mouth twice daily seizure Erin Elizabeth Davidson PA-C traZODone HCl 150 MG Oral Tablet (Desyrel) Take 1 Tablet by mouth at bedtime. sleep Omid Oates MD Trintellix 20 MG Oral Tablet (Vortioxetine HBr) Take 1 Tablet by mouth in the morning. mood Elida Albarran DO Vitamin D-[address] 25 MCG (1000 UT) Oral Tablet (Cholecalciferol) Take 1 Tablet by mouth every evening. General health self * MTM To-Do-List - Brenda Rai RP - 04/15/2024 3:27 PM EST Images from the original note were not included. What we talked about: What I should do: The importance of taking your medication as prescribed Your medicine works best when taken as prescribed. It can be hard to remember to take daily medications. Consider making it a part of your daily routine. Pair taking your medication with something you do every day, like brushing your teeth or eating a meal. Consider setting daily alarms to help remind yourself when it is time to take your medicine. Using a pill box can also help you organize your medicines. Pill boxes allow you to fill each day slot with your daily medicine and help you track when your next dose is due. documented in this encounter Plan of Treatment Upcoming Encounters Date Type Department Care Team (Late st Contact Info) Description 04/16/2024 12:30 PM EST Telemedicine Psychology, [place] [address] [place] [address] Roly Miller, [facility] [address] [place] [address] 04/20/2024 1:30 PM EST Telemedicine Psychiatry, [place] [address] [place] [address] Brooke Deluca CRNP [address] [place] [address] 05/13/2024 1:00 PM EDT Telemedicine Nutrition Services [address] [place] [address] Jasvir Johnson, RDN [facility] [place] [place] [phone] 06/02/2024 11:30 AM EDT Office Visit Orthopaedics Spine Surgery, [place] [address] [place] [address] Suzette Alcala PA-C [address] [place] [address] 06/19/2024 10:30 AM EDT Hospital Encounter [facility] OPERATING [facility] [address] [place] [address] Joseph Giordano MD [address] [place] [address] 06/19/2024 10:30 AM EDT - 06/19/2024 1:37 PM EDT Surgery [facility], OPERATING ROOM [facility] [place] [address] [facility] [place] [phone] Joseph Giordano MD [address] [facility] [place] [address] ARTHRODESIS SPINE POSTERIOR OR POSTERIOR LATERAL WITH LAMINECTOMY LUMBAR, COMBINED 10/07/2024 2:40 PM EDT Telemedicine Endocrinology [address] [place] [address] Daniel Franco MD [address] [place] [address] 10/15/2024 3:30 PM EDT Office Visit Neurology [facility] [address] [place] [address] Mariya Harding PA-C [address] [facility] [place] [address] 10/21/2024 12:10 PM EDT Office Visit Family Practice, [place] [address] [place] [address] Elida Lance DO [address] [facility] [place] [address] 02/03/2026 2:20 PM EST Office Visit Dermatology, [place] [address] [place] [address] Yessi Morton PA-C [address] [place] [address] [place] [address] Scheduled Procedures Name Priority Associated Diagnoses Date/Ti me ARTHRODESIS SPINE POSTERIOR OR POSTERIOR LATERAL WITH LAMINECTOMY LUMBAR, COMBINED Spinal stenosis of lumbar region with neurogenic claudication 06/19/2024 10:30 AM EDT LAMINECTOMY, FACETECTOMY, OR FORAMINOTOMY (UNILATERAL OR BILATERAL WITH DECOMPRESSION OF SPINAL CORD, CAUDA EQUINA AND/OR NERVE ROOT(S) DURING POSTERIOR INTERBODY ARTHRODESIS, LUMBAR Spinal stenosis of lumbar region with neurogenic claudication 06/19/2024 10:30 AM EDT POSTERIOR SPINE INSTRUMENTATION NON SEGMENTAL Spinal stenosis of lumbar region with neurogenic claudication 06/19/2024 10:30 AM EDT INSERTION INTERBODY BIOMECHANICAL DEVICE ANTERIOR W/INTERBODY ARTHRODESIS Spinal stenosis of lumbar region with neurogenic claudication 06/19/2024 10:30 AM EDT OBTAIN AUTOGRAFT FOR SPINE SURGERY LOCAL Spinal stenosis of lumbar region with neurogenic claudication 06/19/2024 10:30 AM EDT REMOVAL POSTERIOR SPINAL NONSEGMENTAL INSTRUMENTATION Spinal stenosis of lumbar region with neurogenic claudication 06/19/2024 10:30 AM EDT Health Maintenance Due Date Last [...] Additional history exists CKD HGB USE SMARTSET 00681 10/02/202410/02, 08/14/2022, 03/16/2022, Additional history exists CKD PHOS USE SMARTSET 38287 10/17/2024 0808/2023, 03/16/2022, 02/09/2021, Additional history exists Depression Monitoring [...] this encounter Medical Devices Implanted Type Area 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'S 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 Device Identifier Shelf Expiration Date Model / Serial / Lot Graft Infuse Bone Sm [id number] - [id number] Implanted:Qt y: 1 on 02/22/2012 at [place] [facility] N/A: Spine Lumbar [employer] : NEUROLOGIC PAIN 08/01/2014 [id number] / / [id number] Screw 6x45 Poly Si [id number] - [id number] Implanted:Qt y: 2 on 02/22/2012 at [place] [facility] N/A: Spine Lumbar JNJ : [employer] [id number] / / Screw 7x35 Poly Si [id number] - [id number] Implanted:Qt y: 2 on 02/22/2012 at OR [facility] N/A: Spine Lumbar JNJ : [employer] [id number] / / Asif 5.5x55 Ti Prbnt [id number] - [id number] Implanted:Qt y: 2 on 02/22/2012 at OR [facility] N/A: Spine Lumbar JNJ : DEPUY SPINE [id number] / / Screw Set Sng Inner [id number] - [id number] Implanted:Qt y: 4 on 02/22/2012 at OR [facility] N/A: Spine Lumbar JNJ : DEPUY SPINE [id number] / / Cage 28x8 Leopard [id number] - [id number] Implanted:Qt y: 1 on 02/22/2012 at [place] [facility] N/A: Spine Lumbar JNJ : ETH[employer]ON [employer]ATIONS [id number] / / Implant Brst Mod Cls Pro 360cc - [id number] Implanted:Qt y: 1 on 11/12/2012 at [place] [facility] Right: Breast MENTOR KRISSY 09/11/2017 [id number] / [id number] / [id number] Implant Brst Mod Cls Pro 360cc - [id number] Implanted:Qt y: 1 on 11/12/2012 at OR [facility] Left: Breast [employer] KRISSY 08/12/2017 350-7360 / [id number] / [id number] 4.0 X 14 Variable Self Starting Screw Implanted:Qt y: 4 on 02/05/2020 by Luis Eduardo Ross MD at OR [facility] N/A: Spine Cervical KWADWO [id number] / / 1 Level 20mm [place] Plate Implanted:Qt y: 1 on 02/05/2020 by Luis Eduardo Ross MD at OR [facility] N/A: Spine Cervical KWADWO [id number] / / [id number] Alcutian Implanted:Qt y: 1 on 02/05/2020 by Luis Eduardo Ross MD at OR [facility] N/A: Spine Cervical KWADWO [id number] / / Description:alctuian cage 2.5cc Vitoss Bimodal Foam Pack Implanted:Qt y: 1 on 02/05/2020 by Luis Eduardo Ross MD at OR [facility] N/A: Spine Cervical KWADWO [id number] 11/29/2020 [id number] / [id number] / [id number] Rick Donnelly One - [id number] Implanted:Qt y: 1 on 08/31/2022 by Chico Perry MD at OR [facility] N/A: Vagina [employer] 08/10/2023 [id number] / / [id number] documented as of this encounter Visit Diagnoses Diagnosis Spinal stenosis, lumbar- Primary Spinal stenosis, lumbar region, without neurogenic claudication Referred for management of medication therapy- Primary Encounter for long-term (current) use of other medications Spinal stenosis of lumbar region with neurogenic [...] and were consensually agreed upon. Care Teams Deployment Technician Relationship Specialty Start Date End Date Elida Lance DO PCP - General Family Medicine 11/03/19 documented as of this encounter
--- OUTSIDE RECORDS SUMMARY | 2024-06-26 12:52 | External Medical Summary | Summary of Care ---
Author Name Unknown Organization [facility] Address [address] [facility] [place] [address] Phone [phone] Care Team Providers Care Channeler Insole Name Role Phone Elida Lance DO Primary Care Provider [phone] Reason for Visit * Reason Comments Follow Up Anxiety Depression Encounter Details Date Type Department Care Team (Late st Contact Info) Description 03/27/2024 11:00 AM EST [facility], [place] [address] [place] [address] Roly Miller, [facility] [address] [place] [address] Borderline personality disorder (HCC)* Allergies Active Allergy Reactions Criticality Noted Date Comments Nsaids 02/01/2020 Hx gastric bypass Other Allergy (See Comments) Rash Medium 013 Dermabond prineo Penicillins 10/04/1999 Rash, last dose was in her 20's Sulfa Antibiotics 10/04/1999 Rash in her early 20's documented as of this encounter (statuses as of 03/27/2024) Medications MULTIVITAMINS PO CAPS one daily Active [facility]S IRON 45 MG PO TABS daily Active Metoclopramide HCl 5 MG Oral Tablet (Reglan) Take 1 Tablet by mouth every 4 hours as needed for Nausea. 20 Tablet 3 Active Pantoprazole Sodium 40 MG Oral Tablet Delayed Release (Protonix)Indica tions:Acid reflux TAKE ONE TABLET BY MOUTH TWICE A DAY 30 MINUTES BEFORE MEALS; DO NOT CRUSH, CUT OR CHEW 180 Tablet 2 3 Active Additional Information Patient taking differently: Twice daily, Reported on 03/24/2024 Hair Skin & Nails Advanced Oral Tablet Take 1 Tablet by mouth daily. Active Calcium-Vitamin D-Minerals 600-400 MG-UNIT Oral Tablet Chewable Take 1 Tablet by mouth 2 times a day. Active Potassium Chloride Erin ER 10 MEQ [...] tablet by mouth daily 45 Tablet 3 01/02/2024 4:29 PM EDT 4 Active LORazepam 0.5 MG Oral Tablet (Ativan) Take 1 Tablet by mouth as needed for Anxiety. 15 Tablet 2 07/19/2023 8:50 AM EDT 4 Active Primidone 50 MG Oral Tablet (Mysoline) Take one-half tablet by mouth twice daily 180 Tablet 03/13/2024 2:46 PM EST 4 Active methylPREDNISolo ne 4 MG Oral Tablet Therapy Pack (Medrol Dosepack) follow package directions 21 Tablet 4 Active Additional Information Patient not taking.Reported on 01/09/2024 traZODone HCl 150 MG Oral Tablet (Desyrel) Take 1 Tablet by mouth at bedtime. 90 Tablet 1 01/16/2024 6:22 PM EST 4 Active Metoprolol Tartrate 25 [...] (Cholecalciferol ) Take 1 Tablet by mouth in the morning. Active AZO Cranberry 250-30 MG Oral Tablet Take by mouth. Activ e documented as of this encounter (statuses as of 03/27/2024) Active Problems Problem Noted Date Diagnosed Date Major depressive disorder, recurrent, in partial remission 12/27/2021 Generalized anxiety disorder 12/27/2021 S/P cervical spinal fusion 02/05/2020 DDD (degenerative disc disease), cervical 2017 Major depressive disorder, recurrent, moderate 0 06/14/2017 Memory changes 01/01/2017 Benign hypertension with CKD (chronic kidney disease) stage III 12/26/2016 Controlled substance agreement signed 04/08/2015 DDD (degenerative disc disease), lumbar 11/21/19 12 [place] [employer] Other*[id number] 11/2009 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 B12 malabsorption s/p gastric bypass 07/14/2002 Allergic rhinitis 02/12/2002 Dyslipidemia, goal LDL below 130 12/04/2001 Chronic rhinitis HTN, goal below 140/90 Spinal stenosis, lumbar Spondylolisthesis documented as of this encounter (statuses as of 03/27/2024) Resolved Problems Problem Noted Date Diagnosed Date [...] as of this encounter (statuses as of 03/27/2024) Immunizations Name Administration Dates Next Due COVID-19 [...] 10/23/2023 Does the household have a re gular [...] ages 0-17 years) Not on file 10/23/2023 Comments No Sex and Gender Information [...] No 08/14/2013 3:36 PM Tarik Flores RN * Because of a physical, mental, [...] this encounter Progress Notes * Roly Miller, ASSISTANT PROFESSOR SCULPTURE - 03/27/2024 10:45 AM EST Patient location: HOME. I was not in a hospital or clinic location. After connecting through [employer], patient was verified with two unique identifiers. 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 Methods to assure confidentiality were taken. Patient acknowledged consent and understanding of privacy and security of the Telemedicine visit. The patient agreed to participate. Start Time: 10:45 am Stop Time: 11:13 am Total direct time: 28 minutes BEHAVIORAL MEDICINE RETURN VISIT PROGRESS NOTE Psychology, [address] [address] 03/27/2024 10:45 AM TYPE OF VISIT: Individual DIAGNOSIS: Borderline personality disorder (HCC) (Primary) REASON FOR SESSION: Individual therapy Session #: 23 SESSION FOCUS: depression and anxiety NOTES: Therapist met with patient to complete an individual session. Patient processed depression and anxiety. Patient denied any SI/HI. Patient Patient denied any self-harm. Patient reported she had the appointment with the surgeon for a lumbar fusion on my lower back. Patient stated, "I am getting anxious about the recovery at home". Patient reported the uncertainty post-surgery is causing anxiety. The patient stated, "I am going to make a list of the things I need because I don't like the unknowns". Patient stated she is going to, "Speak with her supportive employment case manager next week to assist her in addressing her concerns." Patient reported she joined Facebook support group, which the patient reported is educational and supportive. Patient reported she is hopeful about the surgery. Patient reported she still has not heard from her oldest son, albeit, the patient reported her son is talking to his dad. The patient reported she wants to offer her son to use her car when she has surgery. Patient reported otherwise she is doing well. [...] of anxietysince the last session with this sports writer. Goal: Improved self-management of depression and [...] or have let yourself or others down 1 7. Trouble concentrating on things, such as [...] TOTAL SCORE 2 Patient Health Questionnaire (PHQ-9): 10 (Moderate 10-14) PHQ-9, item 9 = 0 Generalized Anxiety Disorder (KATE-7): 2 (Minimal 0-4) C-SSRS administered: Yes [place] Suicide Severity Rating Scale Results 03/27/2024 10:50 [place] SUICIDE SEVERITY RATING SCALE (C-SSRS) Have [...] same as last session (see note dated 03/13/2024 for further details) Safety Plan: Crisis Plan [...] Professional Resources: 1. Local Crisis Services: For [facility] 2. [facility] Division of Psychiatry: [phone] 3. National Suicide Prevention Lifeline: or 098 4. National Crisis Text Line: Text HOME to 428537 5. 911 or proceed to the nearest [...] the event of a crisis: Family Member: [email or web address] Additional resources I can utilize if the previous steps are ineffective (e.g: ED, hotlines): Suicide and Crisis [facility] [address] [place] [address] Crisis Contact [place] [facility] -Crisis Services, and Clinic number: [phone] and Suicide Safety Plan Signature Obtained on [...] clinical assessment: PHQ-9 Adult Data KATE-7 Data [place] Suicide Screen Data Discharge Discussed with patient: Patient continues to need treatment Collaboration of Care: Yes, provider within [facility], information is shared automatically in medical record Is this the patients' initial treatment plan? No FOLLOW-UP PLAN: Return: 2 weeks Appointment: 04/10/2024 at 1:30 pm Action Plan: 1. Continue Cognitive Behavioral Therapy 2. Continue medication management with ANEUDY Maciel Treatment plan reviewed with the patient. Patient voices understanding and concurs with plan. PATIENT EDUCATION: Verbal & written Roly Miller [facility] Division of Psychiatry & Behavioral Medicine [facility] [phone] National Suicide Prevention Lifeline : 988 Crisis Textline : Text "HOME" to 739774 to connect with a crisis counselor Crisis Numbers by [facility]: [place] [facility] Services - Emergency Services [facility] (8-7-YOU CAN) resolve Crisis Network Cinthya . The Open Door - Crisis Intervention [place] [facility] Crisis Help-Line [facility] - Crisis Intervention Services [place] Service Access [employer], [employer]res[employer]. - Crisis Intervention [place] Choose option [address] [place] [address] of Coremaking Machine Setter Carline Lopez & Zeeshan Crisis Intervention Nye [facility] - Mental Health Crisis [facility] - Crisis Intervention [place] [facility] - Crisis Intervention Jonathan [facility] [place] - Crisis Line Matthias [place] - Mental Health Crisis Hotline [place] [facility] - Crisis Services [place] [facility] [place] Service Access [employer], [employer]. - Crisis Intervention Krysten - Mental Health Crisis Intervention Services [facility] [place] MH/ID Program [facility] [place], [place] - Crisis System Meredith [facility] Human Services - Crisis Hotline Staci (7-385-399-HELP) [facility] - Crisis Intervention [place] [facility] - Crisis Intervention Services [place] [facility] - Crisis Services Toni [facility] - Crisis Center Zoran [phone] [facility] - Crisis Hotline Radha (8:30 am-5:00 pm) OR (after 5:00 pm, weekends & holidays) Maldonado [facility] Crisis Intervention Program [place] [facility] Mental Health Crisis Line Alison Newton and Sandra - [facility] Crisis Tunde & Britt[facility] [place] [facility] - Crisis Intervention [place] [facility] - Mental Health Crisis Service [place] [facility] - Crisis Intervention [place] [facility] - Crisis Intervention Patrick & Kallie [place] [facility] - Help Line [facility] [place] MH/ID Program [facility] - Crisis Intervention [facility] - Crisis Intervention [place] [facility], [facility] - Crisis Intervention [place] [facility] Behavioral Health - Emergency Services [place] [facility] - Crisis Line [place] - DBHIDS - Suicide and Crisis Intervention Hotline [facility] - Crisis/ Emergency Services [facility] - Emergency Contact Line [facility] - Crisis Line [place] ext. 1 [facility] Human Services [facility] Action - Crisis Intervention Hotline [place] [facility] Crisis Intervention Services documented in this encounter Plan of Treatment Upcoming Encounters Date Type Department Care Team (Late st Contact Info) Description 03/30/2024 1:30 PM EST Imaging Radiology [facility] [address] [place] [address] 03/31/2024 3:30 PM EST Imaging Radiology [facility] 1st Floor, [place] [address] [place] [address] 04/02/2024 11:25 AM EST Office Visit Interventional Pain Center [facility] [address] [place] [address] Chris Rea, DO [address] [place] [address] 04/03/2024 11:30 AM EST [facility] [address] [place] [phone] Elida Lance, DO [address] [place] [address] 04/10/2024 1:30 PM EST Telemedicine Psychology, [place] [address] [place] [address] Roly Miller, ASSISTANT PROFESSOR SCULPTURE [address] [place] [phone] 04/16/2024 2:00 PM EST Telemedicine Psychiatry, [place] [address] [place] [phone] Brooke Deluca CRNP [address] [place] [address] 05/13/2024 1:00 PM EDT Telemedicine Nutrition Services [address] [facility] [place] [address] Jasvir Johnson, RDN [address] [place] [address] 10/07/2024 2:40 PM EDT Telemedicine Endocrinology [address] [place] [address] Daniel Franco MD [address] [place] [address] 10/15/2024 3:30 PM EDT Office Visit Neurology Nina Alston [place] [address] [place] [address] Mariya Harding PA-C [address] [place] [id number] 02/03/2026 2:20 PM EST Office Visit Dermatology, [place] [facility] [address] [facility] [place] [address] Yessi Morton PA-C [address] [place] [address] [place] [address] Health Maintenance Due Date Last Done Comments Fecal Occult Blood Test 2006 Sigmoidoscopy 2006 Mammogram 08/09/2017 08/09/2016, 09/2015, 08/05/2014, Additional history exists Pneumococcal Vaccine: 50+ Years (3 of 3 - PCV20 or PCV21) 07/09/2021 07/09/2016, 08/21/2013 Colonoscopy 01/14/2022 01/15/2012, 01/15/2012 COVID-19 Vaccine (3 - season) 2023 12/08/2020, 11/17/2020 Albumin/Creatinine Ratio 03/21/20242 024, 02/03/2019, 09/05/2017, Additional history exists GFR 04/19/2024 10/18/2023, 03/2023, 03/20/2023, Additional history exists CKD HGB USE SMARTSET 10204 10/02/202410/02, 08/14/2022, 03/16/2022, Additional history exists CKD PHOS USE SMARTSET 17974 10/17/202410/024, 03/16/2022, 02/09/2021, Additional history exists Depression Monitoring [...] this encounter Medical Devices Implanted Type Area Residential Property Tax Appraiser Device Identifier Shelf Expiration Date Model / Serial / Lot Graft Infuse Bone Sm [id number] - [id number] Implanted:Qt y: 1 on 02/22/[address] [facility] N/A: Spine Lumbar [employer] : NEUROLOGIC PAIN 08/01/2014 [id number] / / [id number] Screw 6x45 Poly Si [id number] - [id number] Implanted:Qt y: 2 on 02/22/[address] [facility] [place] [facility] N/A: Spine Lumbar JNJ : ETH[employer]ON [employer] [id number] / / Screw 7x35 Poly Si [id number] - [id number] Implanted:Qt y: 2 on 02/22/[address] [facility] [place] N/A: Spine Lumbar JNJ : [employer] [id number] / / Asif 5.5x55 Ti Prbnt [id number] - [id number] Implanted:Qt y: 2 on 02/22/[address] [facility] [place] N/A: Spine Lumbar JNJ : DEPUY SPINE [id number] / / Screw Set Sng Inner [id number] - [id number] Implanted:Qt y: 4 on 02/22/[address] [facility] [place] N/A: Spine Lumbar JNJ : DEPUY SPINE [id number] / / Cage 28x8 Leopard [id number] - [id number] Implanted:Qt y: 1 on 02/22/[address] [facility] [place] N/A: Spine Lumbar JNJ : [employer] [id number] / / Implant Brst Mod Cls Pro 360cc - [id number] Implanted:Qt y: 1 on 11/12/[address] [facility] [place] Right: Breast MENTOR KRISSY 09/11/2017 [id number] / [id number] / [id number] Implant Brst Mod Cls Pro 360cc - [id number] Implanted:Qt y: 1 on 11/12/[address] [facility] [place] Left: Breast MENTOR KRISSY 08/12/2017 [id number] / [id number] / [id number] 4.0 X 14 Variable Self Starting Screw Implanted:Qt y: 4 on 02/05/2020 by Luis Eduardo Ross MD at OR [facility] N/A: Spine Cervical KWADWO [id number] / / 1 Level 20mm [place] Plate Implanted:Qt y: 1 on 02/05/2020 by Luis Eduardo Ross MD at OR [facility] N/A: Spine Cervical KWADWO [id number] / / [id number] Alcutian Implanted:Qt y: 1 on 02/05/2020 by Luis Eduardo Ross MD at OR [facility] N/A: Spine Cervical KWADWO [id number] / / Description:alctuian cage 2.5cc Vitoss Bimodal Foam Pack Implanted:Qt y: 1 on 02/05/2020 by Luis Eduardo Ross MD at OR [facility] N/A: Spine Cervical KWADWO [id number] 11/29/2020 [id number] / [id number] / [id number] Tishing Andrzej One - [id number] Implanted:Qt y: 1 on 08/31/2022 by Chico Perry MD at OR [facility] N/A: Vagina Scytl INC 08/10/2023 [id number] / / [id number] documented as of this encounter Visit Diagnoses Diagnosis Borderline personality disorder (HCC)- Primary Borderline personality disorder documented in this encounter Advance Directives * [...] and were consensually agreed upon. Care Teams Channeler Insole Relationship Specialty Start Date End Date Elida Lance DO PCP - General Family Medicine 11/03/19 documented as of this encounter
--- OUTSIDE RECORDS SUMMARY | 2024-06-26 12:52 | External Medical Summary | Summary of Care ---
Author Name Unknown Organization [facility] Address [address] [facility] [place] [address] Phone [phone] Care Team Providers Care Planisher Name Role Phone Elida Lance DO Primary Care Provider Reason for Visit * Reason Comments Follow Up Anxiety Depression * - Pending Review Specialty Diagnoses / Procedures Referred By Traci rizzo Referred To Contact Referral ID Status Reason Start Date Expiration Date V isits Requested Visits Authorized [id number] Pending Review 11/03/2023 11/01/[id number] Encounter Details Date Type Department Care Team (Late st Contact Info) Description 04/16/2024 12:30 PM EST [facility] Psychology, [place] [address] [place] [address] [facility], [facility] [address] [place] [id number] Borderline personality disorder (HCC)* Allergies Active [...] disease), lumbar 11/21/19 12 MEYER Confirmation Research Other*[id number] 11/2009 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 I was not in a hospital or clinic location. After connecting through televideo, patient was verified with two unique identifiers. 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 Methods to assure confidentiality were taken. Patient acknowledged consent and understanding of privacy and security of the Telemedicine visit. The patient agreed to participate. Start Time: 12:20 pm Stop Time: 1:07 pm Total direct time: 47 minutes BEHAVIORAL MEDICINE RETURN VISIT PROGRESS NOTE Sonia Perez [address] [place] [address] [place] [id number] 04/16/2024 12:20 PM TYPE OF VISIT: Individual [...] but anxious, "About preparing for it". This scientific writer suggested making a list doing one task per day. Patient reported her son has not been talking to the patient. Patient reported her son has not responded to her texts, where she let him know about her upcoming back surgery. The patient reported it hurts her to not hear from her son. This scientific writer validated the patient's feelings, but discussed [...] GOALS: Patient reported increased depression and increased since the last session with this scientific writer. Goal: Improved self-management of depression and [...] (KATE-7): 2 (Minimal 0-4) C-SSRS administered: Yes [place] Suicide Severity Rating Scale Results 04/16/2024 12:22 [...] Professional Resources: 1. Local Crisis Services: For [place] [phone] [facility] 2. [facility] Division of Psychiatry: [phone] 3. [place] Suicide Prevention Lifeline: or 988 4. National Crisis Text Line: Text HOME to 138269 5. 911 or proceed to the nearest [...] ED, hotlines): Suicide and Crisis Lifeline - 988[facility] Crisis Contact [place] [phone] [facility], and Clinic number: [phone] and Suicide Safety Plan Signature Obtained on [...] clinical assessment: PHQ-9 Adult Data KATE-7 Data [place] Suicide Screen Data Discharge Discussed with patient: Patient continues to need treatment Collaboration of Care: Yes, provider within [facility], information is shared automatically in medical record Is this the patients' initial treatment plan? No FOLLOW-UP PLAN: Return: 2 weeks Appointment: 04/30/2024 at 2:30 pm Action Plan: 1. Continue Cognitive Behavioral Therapy 2. Continue medication management with ANEUDY Maciel Treatment plan reviewed with the patient. Patient voices understanding and concurs with plan. PATIENT EDUCATION: Verbal & written Roly Miller QUALITY CONTROL Division of Psychiatry & Behavioral Medicine [facility] [phone] National Suicide Prevention Lifeline : 988 Crisis Textline : Text "HOME" to 140799 to connect with a crisis counselor Crisis Numbers by [facility]: [place] [facility] - Emergency Services [facility] (1-625-6-YOU CAN) resolve Crisis Network [facility] . The Open Door - Crisis Intervention [place] [facility] Crisis Help-Line [facility] - Crisis Intervention Services [facility] Service Access [employer] - Crisis Intervention [place] Choose [address] of Tag Meter Operator Carline Lopez & Zeeshan Crisis Intervention [place] [facility] - Mental Health Crisis Anjana [facility] - Crisis Intervention [place] [facility] - Crisis Intervention Jonathan Whitehead Potter - Crisis Line Matthias [place]es [place] - Mental Health Crisis Hotline C[place] [facility] - Crisis Services [place] Crisis Center [place] Service Access [employer] - Crisis Intervention Krysten - Mental Health Crisis Intervention Services [facility] [facility] MH/ID Program Joshua Myers [place], [place] - Crisis System [place] [facility] Human [facility] - Crisis Hotline Staci (8-761-297-HELP) [facility] - Crisis Intervention [place] [facility] - Crisis Intervention [facility] - Crisis Services [place] [facility] - Crisis Center [place] [facility] Crisis Hotline Radha (8:30 am-5:00 pm) OR (after 5:00 pm, weekends & holidays) [place] On [facility] Crisis Intervention Program [facility] - Mental Health Crisis Line Lamar, Alison and Sandra [facility] Crisis [place] & Britt[facility] - Crisis Intervention [facility] Mental Health Crisis Service [place] [facility] - Crisis Intervention [place] [facility] - Crisis Intervention [place] [facility] - Help Line [facility] MH/ID Program Keisha Channing Home - Crisis Intervention [place] [facility] - Crisis Intervention [place] [facility] Emergency Services, [facility] - Crisis Intervention [place] [facility] Behavioral Health - Emergency Services [place] [facility] - Crisis Line [place] - DBHIDS - Suicide and Crisis Intervention Hotline [facility] - Crisis/ Emergency Services [place] [facility] - Emergency Contact Line [place] [facility] - Crisis Line [place] ext. 1 [facility] Human Services [facility] Action - Crisis Intervention Hotline [place] Crisis Intervention Services documented in this encounter Plan of Treatment Upcoming Encounters Date Type Department Care Team (Late st Contact Info) Description 04/20/2024 1:30 PM EST Telemedicine Psychiatry, [place] [address] [place] [phone] Brooke Deluca CRNP [address] [place] [address] 04/30/2024 2:30 PM EST Telemedicine Psychology, [place] [address] [place] [phone] Roly Miller LCSW [address] [place] [phone] 05/13/2024 1:00 PM EDT Telemedicine Nutrition Services [address] [place] [address] Jasvir Johnson, RDN [address] [place] [address] 05/20/2024 11:00 AM EDT Telemedicine Psychology Jamal Silva [address] [address] Ale Arroyo PsyD [address] [place] [phone] 06/02/2024 11:30 AM EDT Office Visit Orthopaedics Spine Surgery, [place] [address] [place] [phone] Suzette Alcala PA-C [address], [place] [phone] 06/19/2024 10:30 AM EDT Hospital Encounter [place] [facility], OPERATING ROOM [facility], [facility] [address] [place] [address] Joseph Giordano MD [address] [facility] [place] [address] 06/19/2024 10:30 AM EDT - 06/19/2024 1:37 PM EDT Surgery OR [facility], OPERATING ROOM [facility], [facility] [address] [place] [phone] Joseph Giordano MD [address] [place] [address] ARTHRODESIS SPINE POSTERIOR OR POSTERIOR LATERAL WITH LAMINECTOMY LUMBAR, COMBINED 10/07/2024 2:40 PM EDT Telemedicine Endocrinology Jamal [address] [place] [phone] Daniel Franco MD [address] [place] [address] 10/15/2024 3:30 PM EDT Office Visit Neurology [address] [place] [place] [address] [place], [place] [phone] Mariya Harding PA-C [address] [address] 10/21/2024 12:10 PM EDT Office Visit [facility] [address] [phone] Elida Lance, DO [address] [place] [address] 02/03/2026 2:20 PM EST Office Visit [address]ermat[address] [phone] Yessi Morton PA-C [address] [place] [address] [place] [address] Scheduled Procedures Name Priority Associated Diagnoses Date/Ti [...] Additional history exists CKD HGB USE SMARTSET 27671 10/02/202410/02, 08/14/2022, 03/16/2022, Additional history exists CKD PHOS USE SMARTSET 80169 10/17/2024 0808/2023, 03/16/2022, 02/09/2021, Additional history exists [...] this encounter Medical Devices Implanted Type Area Miner Device Identifier Shelf Expiration Date Model / Serial / Lot Graft Infuse Bone Sm [id number] - [id number] Implanted:Qt y: 1 on 02/22/2012 at OR [facility] N/A: Spine Lumbar [employer] : NEUROLOGIC PAIN 08/01/2014 [id number] / / [id number] Screw 6x45 Poly Si [id number] - [id number] Implanted:Qt y: 2 on 02/22/2012 at OR [facility] N/A: Spine Lumbar JNJ : [employer] [id number] / / Screw 7x35 Poly Si [id number] - [id number] Implanted:Qt y: 2 on 02/22/2012 at OR [facility] N/A: Spine Lumbar JNJ : [employer] [id number] / / Asif 5.5x55 Ti Prbnt [id number] - [id number] Implanted:Qt y: 2 on 02/22/2012 at OR [facility] N/A: Spine Lumbar JNJ : DEPUY SPINE [id number] / / Screw Set Sng Inner [id number] - [id number] Implanted:Qt y: 4 on 02/22/2012 at OR [facility] N/A: Spine Lumbar JNJ : DEPUY SPINE [id number] / / Cage 28x8 Leopard [id number] - [id number] Implanted:Qt y: 1 on 02/22/2012 at OR [facility] N/A: Spine Lumbar JNJ : [employer] [id number] / / Implant Brst Mod Cls Pro 360cc - [id number] Implanted:Qt y: 1 on 11/12/2012 at OR [facility] Right: Breast MENTOR KRISSY 09/11/[address] / [id number] / [id number] Implant Brst Mod Cls Pro 360cc - [id number] Implanted:Qt y: 1 on 11/12/2012 at OR [facility] Left: Breast MENTOR KRISSY 08/12/[address] / [id number] / [id number] 4.0 X 14 Variable Self Starting Screw Implanted:Qt y: 4 on 02/05/2020 by Luis Eduardo Ross MD at OR [facility] N/A: Spine Cervical KWADWO [id number] / / 1 Level 20mm [place] View Plate Implanted:Qt y: 1 on 02/05/2020 by Luis Eduardo Ross MD at OR [facility] N/A: Spine Cervical KWADWO [id number] / / [id number] [id number] Alcutian Implanted:Qt y: 1 on 02/05/2020 by Luis Eduardo Ross MD at OR [facility] N/A: Spine Cervical KWADWO [id number] / / Description:alctuian cage 2.5cc Vitoss Bimodal Foam Pack Implanted:Qt y: 1 on 02/05/2020 by Luis Eduardo Ross MD at OR [facility] N/A: Spine Cervical KWADWO [id number] 11/29/2020 [id number] / [id number] / [id number] Rick Wall - [id number] Implanted:Qt y: 1 on 08/31/2022 by Chico Perry MD at OR [facility] N/A: Vagina [employer] 08/10/2023 [id number] / / [id number] documented as of this encounter Visit Diagnoses [...] and were consensually agreed upon. Care Teams Planisher Relationship Specialty Start Date End Date Elida Lance DO PCP - General Family Medicine 11/03/19 documented as of this encounter
--- OUTSIDE RECORDS SUMMARY | 2024-06-26 12:52 | External Medical Summary | Summary of Care ---
Author Name Unknown Organization [facility] Address [address] [place] [address] Phone [phone] Care Team Providers Care Salesperson [employer] Name Role Phone Elida Lance DO Primary Care Provider [phone] Reason for Visit * Reason Comments Follow Up Pt states that she i s here for a 6 month follow up Encounter Details Date Type Department Care Team (Late st Contact Info) Description 04/03/2024 11:30 AM EST [facility] [address] [address] Elida Lance, DO [address] [address] Spinal stenosis of lumbar region, unspecified whether neurogenic claudication present*; HTN, goal below 140/90; Dyslipidemia, goal LDL below 130; Weight loss Allergies Active Allergy Reactions Criticality Noted Date Comments Nsaids 02/01/2020 Hx gastric bypass Other Allergy (See Comments) Rash Medium 013 Dermabond prineo Penicillins 10/04/1999 Rash, last dose was in her 20's Sulfa Antibiotics 10/04/1999 Rash in her early 20's documented as of this encounter (statuses as of 04/03/2024) Medications MULTIVITAMINS PO CAPS one daily Active [...] 23 Active Additional Information Patient taking differently: Twice daily, Reported on 04/03/2024 Hair Skin & Nails Advanced Oral Tablet Take 1 Tablet by mouth daily. Active Calcium-Vitamin D-Minerals 600-400 MG-UNIT Oral Tablet Chewable Take 1 Tablet by mouth 2 times a day. Active Potassium Chloride Erin ER 10 MEQ Oral Tablet Extended ReleaseIndicati ons:Hypopotasse derek TAKE ONE TABLET BY MOUTH EVERY DAY 100 Tablet 1 4 1:33 PM EST 04/17/19 24 025 Active oxyBUTYnin Chloride ER 15 MG Oral Tablet Extended Release 24 Hour (Ditropan XL)Indications: Urinary urgency,Urge incontinence of urine Take 2 Tablets by mouth in the morning. 180 Tablet 3 4 10:23 AM EST 06/07/19 24 Active Lisinopril 2.5 MG Oral Tablet (Prinivil)Indic ations:HTN, goal below 140/90 Take 1/2 tablet by mouth daily 45 Tablet 3 5 1:13 PM EST 07/10/19 24 Active LORazepam 0.5 MG Oral Tablet (Ativan) Take 1 Tablet by mouth as needed for Anxiety. 15 Tablet 2 4 8:50 AM EDT 07/17/19 24 Active Primidone 50 MG Oral Tablet (Mysoline) Take one-half tablet by mouth twice daily 180 Tablet 5 2:46 PM EST 10/16/19 24 Active traZODone HCl 150 MG Oral Tablet (Desyrel) Take 1 Tablet by mouth at bedtime. 90 Tablet 1 4 6:22 PM EST 01/14/20 24 Active Metoprolol Tartrate 25 MG Oral Tablet (Lopressor)Agatha cations:HTN, goal below 140/90 TAKE ONE-HALF TABLET BY MOUTH IN THE MORNING AND ONE-HALF TABLET BEFORE BEDTIME 90 Tablet 2 4 9:33 AM EST 01/26/20 24 Active Alendronate Sodium 70 MG Oral Tablet (Fosamax)Indica tions:Osteoporo sis without current pathological fracture, unspecified osteoporosis type Take 1 Tablet by mouth once a week. 12 Tablet 3 4 10:19 AM EST 02/27/20 24 Active Trintellix 20 MG Oral Tablet (Vortioxetine HBr) Take 1 Tablet by mouth in the morning. 90 Tablet 1 5 2:21 PM EST 03/12/19 25 Active buPROPion HCl 100 MG Oral Tablet (Wellbutrin) Take 1 Tablet by mouth in the morning and 1 Tablet before bedtime. 60 Tablet 2 5 11:26 AM EST 03/16/19 25 Active Vitamin D-[address] 25 MCG (1000 UT) Oral Tablet (Cholecalcifero l) Take 1 Tablet by mouth in the morning. Active AZO Cranberry 250-30 MG Oral Tablet Take by mouth. Activ e methylPREDNISol one 4 MG Oral Tablet Therapy Pack (Medrol Dosepack) follow package directions 21 Tablet 11/01/19 24 025 Discontinued documented as of this encounter (statuses as of 04/03/2024) Active Problems Problem Noted Date Diagnosed Date [...] disease), lumbar 11/21/19 12 [facility] [employer] Other*[id number] 06/0 11/2009 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 B12 malabsorption s/p gastric bypass 07/14/2002 Allergic rhinitis 02/12/2002 Dyslipidemia, goal LDL below 130 12/04/2001 Chronic rhinitis HTN, goal below 140/90 Spinal stenosis, lumbar Spondylolisthesis documented as of this encounter (statuses as of 04/03/2024) Resolved Problems Problem Noted Date Diagnosed Date [...] as of this encounter (statuses as of 04/03/2024) Immunizations Name Administration Dates Next Due COVID-19 mRNA, LNP-s, No Pre serve, 2-Dose Series (HOTPOTATO MEDIA) 12/08/2020,11/17/2020 Pneumococcal Conjugate Vacc, 13 Valent (Prevnar) [...] Passive Smoke Exposure: Past Smokeless Tobacco: Never Tobacco Cessation:Counseling Given: Not Answered Alcohol Use Standard Drinks/Week Comments Not Currently [...] Sign Reading Time Taken Comments Blood Pressure 133/84 04/03/2024 11:29 AM EST Pulse 60 04/03/2024 11:29 AM EST Temperature 36.4 °C (97.5 °F) 04/03/2024 11:[address] Respiratory Rate 16 04/03/2024 11:29 AM EST Oxygen Saturation 97% 04/03/2024 11:29 AM EST Inhaled Oxygen Concentration - - Weight 56.5 kg (124 lb 9.6 oz) 04/03/2024 11:29 AM EST Height 154.9 cm (5' 1") 04/03/2024 11:29 AM EST Body Mass Index 23.54 04/03/2024 11:29 AM EST documented in this encounter Functional Status * [...] of Assessment Author No 08/14/2013 3:36 PM EDTarik Acuna RN documented as of this encounter Mental Status * Because of a physical, mental, or emotional condition, do you have serious difficulty concentrating, remembering, or making decisions? (5 years old or older) Answer Entry Date Author No 08/14/2013 3:36 PM EDT Tarik Gold RN documented in this encounter Progress Notes * Elida Lance, - 04/03/2024 11:38 AM EST Subjective: Martha Lawson is a 63 year old female. Chief Complaint Patient presents with Follow Up Pt states that she is here for a 6 month follow up HPI: 63 year old female here today for a follow-up. Ongoing back pain and getting surgery in [place] in June. L4-L5. Saw pain management, trial on Lyrica and Gabapentin and caused dry mouth. Currently not on a pain medication. She is seeing psychiatry, thru [facility]. Added in wellbutrin this past viist. 100 mg bid. Has has a 10 lb weight loss. Noticed less appetite and not eating as much. BP is stable All meds were reviewed. Continues to see counseling Roly Miller as well. PHM: Patient Active Problem List Diagnosis Chronic rhinitis HTN, goal below 140/90 Dyslipidemia, goal LDL below 130 Allergic rhinitis Postgastric surgery syndrome B12 malabsorption s/p gastric bypass [facility] [employer] Other*[id number] DDD (degenerative disc disease), lumbar Spinal stenosis, lumbar Spondylolisthesis Controlled substance agreement signed Benign hypertension with CKD (chronic kidney disease) stage III (HCC) Memory changes Major depressive disorder, recurrent, moderate (HCC) DDD (degenerative disc disease), cervical S/P cervical spinal fusion Major depressive disorder, recurrent, in partial remission (HCC) Generalized anxiety disorder Current Outpatient Medications Medication Sig Dispense Refill MULTIVITAMINS PO CAPS one daily [facility] IRON 45 MG PO TABS daily Metoclopramide HCl 5 MG Oral Tablet (Reglan) Take 1 Tablet by mouth every 4 hours as needed for Nausea. 20 Tablet 0 Pantoprazole Sodium 40 MG Oral Tablet Delayed Release (Protonix) TAKE ONE TABLET BY MOUTH TWICE A DAY 30 MINUTES BEFORE MEALS; DO NOT CRUSH, CUT OR CHEW (Patient taking differently: Twice daily) 180 Tablet 2 Calcium-Vitamin D-Minerals 600-400 MG-UNIT Oral Tablet Chewable Take 1 Tablet by mouth 2 times a day. Potassium Chloride Erin ER 10 MEQ Oral Tablet Extended Release TAKE ONE TABLET BY MOUTH EVERY DAY 100 Tablet 1 oxyBUTYnin Chloride ER 15 MG Oral Tablet Extended Release 24 Hour (Ditropan XL) Take 2 Tablets by mouth in the morning. 180 Tablet 3 Lisinopril 2.5 MG Oral Tablet (Prinivil) Take 1/2 tablet by mouth daily 45 Tablet 3 LORazepam 0.5 MG Oral Tablet (Ativan) Take 1 Tablet by mouth as needed for Anxiety. 15 Tablet 2 Primidone 50 MG Oral [...] Tablet (Cholecalciferol) Take 1 Tablet by mouth in the morning. AZO Cranberry 250-30 MG Oral Tablet Take by mouth. Hair Skin & Nails Advanced Oral Tablet Take 1 Tablet by mouth daily. methylPREDNISolone 4 MG Oral Tablet Therapy Pack (Medrol Dosepack) follow package directions (Patient not taking: Reported on 01/09/2024) 21 Tablet 0 No current facility-administered medications for this visit. Facility-Administered Medications Ordered in Other Visits Medication Dose Route Frequency Provider Last Rate Last Admin glycopyrrolate (ROBINUL) inj Once PRN Tj Rincon CRNA 0.6 mg at 02/22/12 1103 neostigmine methylsulfate (PROSTIGMIN) 1 MG/ML inj Once PRN Tj Rincon CRNA 3 mg at 02/22/12 1103 Review of patient's allergies indicates: Allergen Reactions Other Allergy (See Comments) Rash Dermabond prineo Nsaids Hx gastric bypass Penicillins Rash, last dose was in her 20's Sulfa Antibiotics Rash in her early 's Objective: BP 133/84 | Pulse 60 | Temp 97.5 °F (36.4 °C) (Tympanic) | Resp 16 | Ht 5' 1" (1.549 m) | Wt 124 lb 9.6 oz (56.5 kg) | LMP 03/18/2007 | SpO2 97% | BMI 23.54 kg/m² | BSA 1.56 m² Physical Exam: General: alert, healthy, and no distress Heart: regular rate & rhythm, no murmur, and no gallops Lungs: chest symmetric with normal AP diameter, no chest deformities noted, no chest wall tenderness, lungs clear to auscultation Abdomen: abdomen soft, non-tender, normal bowel sounds, and no masses or organomegaly Extremities: no edema ASSESSMENT/PLAN: Spinal stenosis of lumbar region, unspecified whether neurogenic claudication present (Primary) Arranged surgery in June. HTN, goal below 140/90 Stable. Dyslipidemia, goal LDL below 130 Stable. Weight loss Could be the addition of wellbutrin To consider weaning off in the spring and summer month. Follow Up: Return in about 6 months (around 10/01/2024). Elida Lance DO documented in this encounter Nursing Notes * Livier Santana LPN - 04/03/2024 11:29 AM EST Martha Lawson is a 63 year old female who presents today for Chief Complaint Patient presents with Follow Up Pt states that she is here for a 6 month follow up documented in this encounter Plan of Treatment Upcoming Encounters Date Type Department Care Team (Late st Contact Info) Description 04/10/2024 1:30 PM EST Telemedicine Psychology, [facility] [address] [place] [address] Roly Miller, [address] [place] [address] 04/16/2024 2:00 PM EST Telemedicine Psychiatry, [facility] [address] [place] [address] Brooke Deluca CRNP [address] [place] [address] 05/13/2024 1:00 PM EDT Telemedicine Nutrition Services [address] [place] [address] Jasvir Johnson, [address] [place] [address] [place] [phone] 06/02/2024 11:30 AM EDT Office Visit Orthopaedics Spine Surgery, [place] [address] [place] [address] Suzette Alcala PA-C [address], [place] [id number] 06/19/2024 10:30 AM EDT Hospital Encounter [facility], OPERATING ROOM [place] [address] [place] [id number] Joseph Giordano MD [address] [place], [place] [id number] 06/19/2024 10:30 AM EDT - 06/19/2024 1:37 PM EDT Surgery [facility], OPERATING ROOM GM, [place] [facility] [address] [address] Joseph Giordano MD [address] [place] [address] ARTHRODESIS SPINE POSTERIOR OR POSTERIOR LATERAL WITH LAMINECTOMY LUMBAR, COMBINED 10/07/2024 2:40 PM EDT Telemedicine Endocrinology [address] [place] [address] Daniel Franco MD [address] [place] [address] 10/15/2024 3:30 PM EDT Office Visit Neurology [facility] [place] [address] [facility] [place] [address] Mariya Harding PA-C [address] [facility] [address] [place] [address] 10/21/2024 12:10 PM EDT Office Visit Family Practice, [place] [facility] [address] [facility] [place] [phone] Elida Lance DO [address] [facility] [place] [address] 02/03/2026 2:20 PM EST Office Visit [facility], [place] [facility] [address] [facility] [place] [address] Yessi Morton PA-C [address] [place] [address] [place] [address] Scheduled Procedures Name Priority [...] Additional history exists CKD HGB USE SMARTSET 41242 10/02/202410/02, 08/14/2022, 03/16/2022, Additional history exists CKD PHOS USE SMARTSET 32992 10/17/202410/02, 03/16/2022, 02/09/2021, Additional history exists Depression [...] this encounter Medical Devices Implanted Type Area Nitric Acid Plant Operator Device Identifier Shelf Expiration Date Model / Serial / Lot Graft Infuse Bone Sm [id number] - [id number] Implanted:Qt y: 1 on 02/22/2012 at OR [facility] [place] N/A: Spine Lumbar MED[employer] : NEUROLOGIC PAIN 08/01/2014 [id number] / / [id number] Screw 6x45 Poly Si [id number] - [id number] Implanted:Qt y: 2 on 02/22/2012 at OR [facility] [place] N/A: Spine Lumbar JNJ : [employer] [id number] / / Screw 7x35 Poly Si [id number] - [id number] Implanted:Qt y: 2 on 02/22/2012 at OR [facility] [place] N/A: Spine Lumbar JNJ : [employer] [id number] / / Asif 5.5x55 Ti Prbnt [id number] - [id number] Implanted:Qt y: 2 on 02/22/2012 at OR [facility] [place] N/A: Spine Lumbar JNJ : DEPUY SPINE [id number] / / Screw Set Sng Inner [id number] - [id number] Implanted:Qt y: 4 on 02/22/2012 at OR [facility] [place] N/A: Spine Lumbar JNJ : DEPU[employer] SPINE [id number] / / Cage 28x8 Leopard [id number] - [id number] Implanted:Qt y: 1 on 02/22/2012 at OR [facility] [place] N/A: Spine Lumbar JNJ : [employer] [id number] / / Implant Brst Mod Cls Pro 360cc - [id number] Implanted:Qt y: 1 on 11/12/2012 at OR [facility] [place] Right: Breast MENTOR KRISSY 09/11/2017 [id number] / [id number] / [id number] Implant Brst Mod Cls Pro 360cc - [id number] Implanted:Qt y: 1 on 11/12/2012 at OR [facility] [place] Left: Breast MENT[employer] KRISSY 08/12/2017 [id number] / [id number] / [id number] 4.0 X 14 Variable Self Starting Screw Implanted:Qt y: 4 on 02/05/2020 by Luis Eduardo Ross MD at OR [facility] N/A: Spine Cervical KWADWO [id number] / / 1 Level 20mm Rush View Plate Implanted:Qt y: 1 on 02/05/2020 by Luis Eduardo Ross MD at OR [facility] N/A: Spine Cervical KWADWO [id number] / / [id number] [id number] Alcutian Implanted:Qt y: 1 on 02/05/2020 by Luis Eduardo Ross MD at OR [facility] N/A: Spine Cervical KWADWO [id number] / / Description:alctuian cage 2.5cc Vitoss Bimodal Foam Pack Implanted:Qt y: 1 on 02/05/2020 by Luis Eduardo Ross MD at OR [facility] N/A: Spine Cervical KWADWO [id number] 11/29/2020 [id number] / [id number] / [id number] Sling Parkerelliot One - [id number] Implanted:Qt y: 1 on 08/31/2022 by Chico Perry MD at OR [facility] N/A: Vagina [employer] 08/10/2023 [id number] / / [id number] documented as of this encounter Visit Diagnoses Diagnosis Spinal stenosis, lumbar- Primary Spinal stenosis, lumbar region, without neurogenic claudication Spinal stenosis of lumbar region, unspecified whether neurogenic claudication present- Primary HTN, goal below 140/90 Unspecified essential hypertension Dyslipidemia, goal LDL below 130 Other and unspecified hyperlipidemia Weight loss Loss of weight Spinal stenosis of lumbar region with neurogenic [...] and were consensually agreed upon. Care Teams Salesperson Automobiles Relationship Specialty Start Date End Date Elida Lance DO PCP - General Family Medicine 11/03/19 documented as of this encounter
--- OUTSIDE RECORDS SUMMARY | 2024-06-26 12:52 | External Medical Summary | Summary of Care ---
Author Name Unknown Organization [facility] Address [address] [place] [address] Phone [phone] Care Team Providers Care Dioramist Name Role Phone Elida Lance DO Primary Care Provider [phone] Reason for Referral * Precert (Within 10 days (routine)) - Authorized Specialty Diagnoses / Procedures Referred By Traci rizzo Referred To Contact Radiology Diagnoses Need for prophylactic vaccination and inoculation against influenza History of lumbar laminectomy History of lumbar fusion Spondylolisthesis of lumbar region Chronic low back pain, unspecified back pain laterality, unspecified whether sciatica present Procedures CT L SPINE WO CONTRAST Elham Gutierrez PA-C [address] [place] [address] Phone: tel: fax: Referral ID Status Reason Start Date Expiration Date V isits Requested Visits Authorized [id number] Authorized 03/31/2024 999 999 Reason for Visit * Reason Onset Date Comments Follow Up L5-s1 laminectom y, PLIF Medication Administration 03/24/2024 Flu an d/or Pneumo Inj Encounter Details Date Type Department Care Team (Late st Contact Info) Description 03/24/2024 11:30 AM EST Office Visit Orthopaedics Spine Surgery, [place] [address] [place] [address] Elham Gutierrez PA-C [address] [place] [address] Need for prophylactic vaccination and inoculation against influenza*; History of lumbar laminectomy; History of lumbar fusion; Spondylolisthesis of lumbar region; Chronic low back pain, unspecified back pain laterality, unspecified whether sciatica present Allergies Active Allergy Reactions Criticality Noted Date Comments Nsaids 02/01/2020 Hx gastric bypass Other Allergy (See Comments) Rash Medium 013 Dermabond prineo Penicillins 10/04/1999 Rash, last dose was in her 20's Sulfa Antibiotics 10/04/1999 Rash in her early 's documented as of this encounter (statuses as of 03/30/2024) Medications MULTIVITAMINS PO CAPS one daily Active [...] as of this encounter (statuses as of 03/30/2024) Active Problems Problem Noted Date Diagnosed Date Major depressive disorder, recurrent, in partial remission 12/27/2021 Generalized anxiety disorder 12/27/2021 S/P cervical spinal fusion 02/05/2020 DDD (degenerative disc disease), cervical 2017 Major depressive disorder, recurrent, moderate 0 06/14/2017 Memory changes 01/01/2017 Benign hypertension with CKD (chronic kidney disease) stage III 12/26/2016 Controlled substance agreement signed 04/08/2015 DDD (degenerative disc disease), lumbar 11/21/19 12 [place] Conf[employer] Other*[id number] 06/11/2009 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 B12 malabsorption s/p gastric bypass 07/14/2002 Allergic rhinitis 02/12/2002 Dyslipidemia, goal LDL below 130 12/04/2001 Chronic rhinitis HTN, goal below 140/90 Spinal stenosis, lumbar Spondylolisthesis documented as of this encounter (statuses as of 03/30/2024) Resolved Problems Problem Noted Date Diagnosed Date [...] as of this encounter (statuses as of 03/30/2024) Immunizations Name Administration Dates Next Due COVID-19 mRNA, LNP-s, No Pre serve, 2-Dose Series (AdStage) 12/08/2020,11/17/2020 Pneumococcal Conjugate Vacc, 13 Valent (Prevnar) [...] this encounter Patient Instructions * Patient Instructions* Stephanie Erwin LPN - 03/24/2024 11:06 AM EST ~~PATIENT INSTRUCTIONS FOR FLU SHOT~~ Possible side effects of influenza vaccine, (flu shot), are usually mild and include: 1. Soreness or redness at injection site 2. Low grade fever 3. Body aches You may use Tylenol/Acetaminophen as needed for these symptoms. LET YOUR DOCTOR KNOW IMMEDIATELY IF YOU HAVE DIFFICULTY BREATHING OR SWALLOWING, EXPERIENCE ITCHINGOF FEET OR HANDS, HAVE SWELLING OF EYES, FACE OR INSIDE OF NOSE. documented in this encounter Progress Notes * Elham Gutierrez PA-C - 03/30/2024 1:48 PM EST 03-24-2024 HPI: 63 yo female s/p L5-S1 laminectomy, psf, plif 2011, hardware removal 2014 who has had increasing lower back pain. She has radicular pain in the right leg to the calf and foot with an associated numbness. She also has left sided radicular pain. And numbness. She has increasing numbness recently. She denies bowel or bladder dysfunction. She denies any history of trauma or injury. She cannot walk even 1/2 block due to pain. She has been using a scooter to be more mobile. She has increasing pain with standing and ambulating. The pain is daily. Her activities are significantly worsening. At her last visit we had obtained a MRI. Today's visit is to discuss treatment options. Images: MRI lumbar spine I personally reviewed. L4-5 spondylolisthesis with foraminal narrowing. L5-S1 with implants intact. There was bilateral foraminal narrowing. Assessment L5-S1 lami, psf, plif 2011 Spondylolisthesis L4-5 Foraminal narrowing lumbar spine Plan CT lumbar spine Possible surgical outcome could be L4-5 lami, psf, plif vs possible L4-5, L5-S1 back, front, back procedure. Re-evaluate after the CT for further treatment options * Stephanie Erwin LPN - 03/24/2024 11:06 AM EST PRE - ADMINISTRATION DOCUMENTATION Are you experiencing any cold symptoms or fever? No Have you had Guillain-Gamaliel Syndrome (an illness that causes paralysis) within the last 6 weeks? No Have you had the flu shot in the past? YES Have you ever had a reaction to the flu shot? No Stephanie Erwin LPN, 03/24/2024 11:06 AM Immunization Administration Documentation Time Out Procedure Performed: Yes Patient Identified (Ask Name/Date of ): Yes Does the patient have a fever greater than 101 degrees today? No Patient allergic to latex? No VFC Stock: No Immunization(s) verified: Yes, Immunization Name: Flu, VIS Sheet(s) given: Yes Verified Side and Site: Yes Verified Shot(s) with Parent(s)/Patient: Yes documented in this encounter Plan of Treatment Upcoming Encounters Date Type Department Care Team (Late st Contact Info) Description 04/02/2024 11:25 AM EST Office Visit Interventional [facility] [address] [place] [phone] Chris Rea, DO [address] [place] [phone] 04/03/2024 11:30 AM EST Office Visit Family [facility] [address] [place] [address] Elida Lance, DO [address] [place] [address] 04/10/2024 1:30 PM EST Telemedicine Psychology, [place] [address] [place] [address] Roly Miller, BOUCHRA [address] [place] [address] 04/16/2024 2:00 PM EST Telemedicine Psychiatry, [place] [address] [place] [address] Brooke Deluca CRNP [address] [place] [address] 05/13/2024 1:00 PM EDT Telemedicine Nutrition Services [address] [place] [address] Jasvir Johnson, RDN [address] [place] [address] 10/07/2024 2:40 PM EDT Telemedicine Endocrinology [address] [place] [address] Daniel Franco MD [address] [place] [address] 10/15/2024 3:30 PM EDT Office Visit Neurology [facility] [place] [address] [place] [address] Mariya Harding PA-C [address] [place] [address] 02/03/2026 2:20 PM EST [facility] [address] [place] [address] Yessi Morton PA-C [address] [place] [address] [place] [address] Scheduled Orders Name Type Priority Associated Diagnoses Orde r Schedule CT L SPINE WO CONTRAST Medical Imaging Routine Need for prophylactic vaccination and inoculation against influenza History of lumbar laminectomy History of lumbar fusion Spondylolisthesis of lumbar region Chronic low back pain, unspecified back pain laterality, unspecified whether sciatica present Expected: 03/31/2024, Expires: 04/24/2025 Health Maintenance Due Date Last Done Comments [...] Additional history exists CKD HGB USE SMARTSET 73768 10/02/202410/02, 08/14/2022, 03/16/2022, Additional history exists CKD PHOS USE SMARTSET 84125 10/17/202410/02, 03/16/2022, 02/09/2021, Additional history exists Depression [...] this encounter Medical Devices Implanted Type Area Clinical Laboratory Aides Teacher Device Identifier Shelf Expiration Date Model / Serial / Lot Graft Infuse Bone Sm [id number] - [id number] Implanted:Qt y: 1 on [place]22/2012 [place] [facility]: Spine Lumbar MED[employer] : NEUROLOGIC PAIN 08/01/2014 [id number] / / [id number] Screw 6x45 Poly Si [id number] - [id number] Implanted:Qt y: 2 on 02/22/2012 [place] [facility]A: Spine Lumbar JNJ : ETH[employer] [id number] / / Screw 7x35 Poly Si [id number] - [id number] Implanted:Qt y: 2 on 02/22/2012 [place] [facility] [place]: Spine Lumbar JNJ : ETH[employer]ON [employer]ATIONS [id number] / / Asif 5.5x55 Ti Prbnt [id number] - [id number] Implanted:Qt y: 2 on 02/22/2012 [place] [facility]A: Spine Lumbar JNJ : DEPUY SPINE [id number] / / Screw Set Sng Inner [id number] - [id number] Implanted:Qt y: 4 on 02/22/2012 [place] [facility]A: Spine Lumbar JNJ : DEPUY SPINE [id number] / / Cage 28x8 Leopard [id number] - [id number] Implanted:Qt y: 1 on 02/22/2012 [place] [facility]A: Spine Lumbar JNJ : ETH[employer]ON [employer] [id number] / / Implant Brst Mod Cls Pro 360cc - [id number] Implanted:Qt y: 1 on 11/12/2012 [place] [facility] Right: Breast MENTOR KRISSY 09/11/2017 [id number] / [id number] / [id number] Implant Brst Mod Cls Pro 360cc - [id number] Implanted:Qt y: 1 on 11/12/2012 [place] [facility] Left: Breast MENTOR KRISSY 08/12/2017 [id number] / [id number] / [id number] 4.0 X 14 Variable Self Starting Screw Implanted:Qt y: 4 on 02/05/2020 by Luis Eduardo Ross MD at OR [facility] N/A: Spine Cervical KWADWO [id number] / / 1 Level 20mm [place] Plate Implanted:Qt y: 1 on 02/05/2020 by Luis Eduardo Ross MD at OR [facility] N/A: Spine Cervical KWADWO [id number] / / [id number] Alcutian Implanted:Qt y: 1 on 02/05/2020 by Luis Eduardo Ross MD at OR [facility] N/A: Spine Cervical KWADWO [id number] / / Description:alctuian cage 2.5cc Vitoss Bimodal Foam Pack Implanted:Qt y: 1 on 02/05/2020 by Luis Eduardo Ross MD at OR [facility] N/A: Spine Cervical KWADWO [id number] 11/29/2020 2082-4009 / [id number] / [id number] Rick Wall - [id number] Implanted:Qt y: 1 on 08/31/2022 by Chico Perry MD at OR [facility] N/A: Vagina WILLIAM [employer] 08/10/2023 [id number] / / [id number] documented as of this encounter Visit Diagnoses Diagnosis Need for prophylactic vaccination and inoculation against influenza- Primary History of lumbar laminectomy History of lumbar fusion Spondylolisthesis of lumbar region Acquired spondylolisthesis Chronic low back pain, unspecified back pain laterality, unspecified whether sciatica present documented in this encounter Advance Directives * [...] and were consensually agreed upon. Care Teams Dioramist Relationship Specialty Start Date End Date Elida Lance DO PCP - General Family Medicine 11/03/19 documented as of this encounter
--- OUTSIDE RECORDS SUMMARY | 2024-06-26 12:52 | External Medical Summary | Summary of Care ---
Author Name Unknown Organization [facility] Address [address] [place] [address] Phone [phone] Care Team Providers Care Sand Screener Operator Name Role Phone Elida Lance DO Primary Care Provider [phone] Encounter Details Date Type Department Care Team (Late st Contact Info) Description 04/14/2024 Population Health External Data Unspecified Department Allergies Active Allergy Reactions Criticality Noted Date Comments Nsaids 02/01/2020 Hx gastric bypass Other Allergy (See Comments) Rash Medium 013 Dermabond prineo Penicillins 10/04/1999 Rash, last dose was in her 20's Sulfa Antibiotics 10/04/1999 Rash in her early 20's documented as of this encounter (statuses as of 04/15/2024) Medications MULTIVITAMINS PO CAPS Take 1 Capsule [...] as of this encounter (statuses as of 04/15/2024) Active Problems Problem Noted Date Diagnosed Date Major depressive disorder, recurrent, in partial remission 12/27/2021 Generalized anxiety disorder 12/27/2021 S/P cervical spinal fusion 02/05/2020 DDD (degenerative disc disease), cervical 2017 Major depressive disorder, recurrent, moderate 0 06/14/2017 Memory changes 01/01/2017 Benign hypertension with CKD (chronic kidney disease) stage III 12/26/2016 Controlled substance agreement signed 04/08/2015 DDD (degenerative disc disease), lumbar 11/21/19 12 [place] Confirmation Research Other*[id number] 06/0 11/2009 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 B12 malabsorption s/p gastric bypass 07/14/2002 Allergic rhinitis 02/12/2002 Dyslipidemia, goal LDL below 130 12/04/2001 Chronic rhinitis HTN, goal below 140/90 Spinal stenosis, lumbar Spondylolisthesis documented as of this encounter (statuses as of 04/15/2024) Resolved Problems Problem Noted Date Diagnosed Date [...] as of this encounter (statuses as of 04/15/2024) Immunizations Name Administration Dates Next Due COVID-19 mRNA, LNP-s, No Pre serve, 2-Dose Series ([employer]) 12/08/2020,11/17/2020 Pneumococcal Conjugate Vacc, 13 Valent (Prevnar) [...] No 08/14/2013 3:36 PM RAKESHT Tarik Gold, ESPERANZA * Do you have serious difficulty walking or climbing stairs? (5 years old or older) Answer Date of Assessment Author No 08/14/2013 3:36 PM EDT Tarik Gold RN * Do you have difficulty dressing or bathing? (5 years old or older) Answer Date of Assessment Author No 08/14/2013 3:36 PM EDT Asif, Ma luis, RN * Because of a physical, mental, or emotional condition, do you have difficulty doing errands alone such as visiting a doctor’s office or shopping? (15 years old or older) Answer Date of Assessment Author No 08/14/2013 3:36 PM EDT Tarik Gold, RN documented as of this encounter Mental Status * Because of a physical, mental, or emotional condition, do you have serious difficulty concentrating, remembering, or making decisions? (5 years old or older) Answer Entry Date Author No 08/14/2013 3:36 PM EDT Tarik Gold, RN documented in this encounter Plan of Treatment Upcoming Encounters Date Type Department Care Team (Late st Contact Info) Description 04/16/2024 12:30 PM EST Telemedicine Psychology, [place] [address] [place] [phone] Roly Miller, BOUCHRA [address] [place] [address] 04/20/2024 1:30 PM EST Telemedicine Psychiatry, [place] [address] [place] [phone] Brooke Deluca CRNP [address] [place] [address] 05/13/2024 1:00 PM EDT Telemedicine Nutrition Services [address] [place] [address] Jasvir Johnson, RDN [address] [place] [address] [place] [phone] 06/02/2024 11:30 AM EDT Office Visit Orthopaedics Spine Surgery, [place] [address] [place] [phone] Suzette Alcala PA-C [address] [place] [address] 06/19/2024 10:30 AM EDT Hospital Encounter [facility] [address] [facility] [place] [address] Joseph Giordano MD [address] [facility], [place] [phone] 06/19/2024 10:30 AM EDT - 06/19/2024 1:37 PM EDT Surgery OR [facility], OPERATING ROOM [facility], [facility] [address] [place] [phone] Joseph Giordano MD [address] [facility], [place] [id number] ARTHRODESIS SPINE POSTERIOR OR POSTERIOR LATERAL WITH LAMINECTOMY LUMBAR, COMBINED 10/07/2024 2:40 PM EDT Telemedicine Endocrinology [place] [address] [place] [address] Daniel Franco MD [address] [place] [address] 10/15/2024 3:30 PM EDT Office Visit Neurology [facility] [address] [facility] [place] [address] Mariya Harding PA-C [address] [facility] [place] [address] 10/21/2024 12:10 PM EDT Office Visit [facility] [place] [address] [facility] [place] [address] Elida Lance DO [address] [facility] [place] [address] 02/03/2026 2:20 PM EST Office Visit Dermatology, [place] [address] [facility] [place] [address] Yessi Morton PA-C [address] [place] [address] [place] [address] Scheduled Procedures Name Priority [...] Additional history exists CKD HGB USE SMARTSET 00046 10/02/202410/02, 08/14/2022, 03/16/2022, Additional history exists CKD PHOS USE SMARTSET 37663 10/17/202410/02, 03/16/2022, 02/09/2021, Additional history exists Depression [...] this encounter Medical Devices Implanted Type Area Hearing Care Professional Device Identifier Shelf Expiration Date Model / Serial / Lot Graft Infuse Bone Sm [id number] - [id number] Implanted:Qt y: 1 on 02/22/2012 at [place] [facility] N/A: Spine Lumbar [employer] : NEUROLOGIC PAIN 08/01/2014 [id number] / / [id number] Screw 6x45 Poly Si [id number] - [id number] Implanted:Qt y: 2 on 02/22/2012 at [place] [facility] N/A: Spine Lumbar JNJ : ETH[employer]ON [employer] [id number] / / Screw 7x35 Poly Si [id number] - [id number] Implanted:Qt y: 2 on 02/22/2012 at [place] [facility] N/A: Spine Lumbar JNJ : ETH[employer]ON C[employer]ATIONS [id number] / / Asif 5.5x55 Ti Prbnt [id number] - [id number] Implanted:Qt y: 2 on 02/22/2012 at [place] [facility] N/A: Spine Lumbar JNJ : DEPUY SPINE [id number] / / Screw Set Sng Inner [id number] - [id number] Implanted:Qt y: 4 on 02/22/2012 at [place] [facility] N/A: Spine Lumbar JNJ : DEPUY SPINE [id number] / / Cage 28x8 Leopard [id number] - [id number] Implanted:Qt y: 1 on 02/22/2012 at [place] [facility] N/A: Spine Lumbar JNJ : ETH[employer]ON C[employer]ATIONS [id number] / / Implant Brst Mod Cls Pro 360cc - [id number] Implanted:Qt y: 1 on 11/12/2012 at [place] [facility] Right: Breast MENTOR KRISSY 09/11/2017 350-7360 / [id number] / [id number] Implant Brst Mod Cls Pro 360cc - [id number] Implanted:Qt y: 1 on 11/12/2012 at [place] [facility] Left: Breast MENTOR KRISSY 08/12/2017 350-7360 / [id number] / [id number] 4.0 X 14 Variable Self Starting Screw Implanted:Qt y: 4 on 02/05/2020 by Luis Eduardo Ross MD at OR [facility] N/A: Spine Cervical KWADWO [id number] / / 1 Level 20mm Sharp View Plate Implanted:Qt y: 1 on 02/05/2020 by Luis Eduardo Ross MD at OR [facility] N/A: Spine Cervical KWADWO [id number] / / [id number] Alcutian Implanted:Qt y: 1 on 02/05/2020 by Luis Eduardo Ross MD at OR [facility] N/A: Spine Cervical KWADWO [id number] / / Description:alctuian cage 2.5cc Vitoss Bimodal Foam Pack Implanted:Qt y: 1 on 02/05/2020 by Luis Eduardo Ross MD at OR [facility] N/A: Spine Cervical KWADWO [id number] 11/29/2020 1708-0559 / [id number] / [id number] Tishing Andrzej One - [id number] Implanted:Qt y: 1 on 08/31/2022 by Chico Perry MD at OR [facility] N/A: Vagina [email or web address] [facility] 08/10/2023 [id number] / / [id number] documented as of this encounter Advance Directives [...] and were consensually agreed upon. Care Teams Sand Screener Operator Relationship Specialty Start Date End Date Elida Lance DO PCP - General Family Medicine 11/03/19 documented as of this encounter
--- OUTSIDE RECORDS SUMMARY | 2024-06-26 12:52 | External Medical Summary | Summary of Care ---
Author Name Unknown Organization [facility] Address [address] [facility] [place] [address] Phone [phone] Care Team Providers Care Amusement Equipment Operator Name Role Phone Elida Lance DO Primary Care Provider Reason for Visit * Reason Comments Back Pain Encounter Details Date Type Department Care Team (Late st Contact Info) Description 04/02/2024 11:25 AM EST Office Visit [facility] [address] [place] [phone] Chris Rea DO [address] [place] [phone] Chronic radicular lumbar pain*; History of lumbar spinal fusion; Numbness and tingling of both legs below knees Allergies Active Allergy Reactions Criticality Noted Date [...] Patient taking differently: Twice daily, Reported on 04/02/2024 Hair Skin & Nails Advanced Oral Tablet [...] Active Additional Information Patient not taking.Reported on 04/02/2024 traZODone HCl 150 MG Oral Tablet (Desyrel) [...] disease), lumbar 11/21/19 12 [facility]ER Confirmation Research Other*[id number] 06/0 11/2009 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 (Household - for ages [...] 08/14/2013 3:36 PM Tarik Flores RN * Do you have serious difficulty walking or climbing stairs? (5 years old or older) Answer Date of Assessment Author No 08/14/2013 3:36 PM RAKESHT Tarik Gold, RN * Do you have [...] documented in this encounter Progress Notes * Chris Rea, - 04/02/2024 11:09 AM EST Interventional Pain Follow-up Appointment Subjective: Chief Complaint: Chief Complaint Patient presents with Back Pain History of Present Illness: Martha Lawson is a 63 year old year-old female with a past medical history significant for lumbar fusion and lumbar radicular pain. Reviewed recent MRI and EMG findings. EMG demonstrative of chronic S1 radiculopathy (right). MRI does not have contributory findings to explain pain pattern. Considered DARRYL vs bilateral with consideration of SCS Trial in future at last visit. Failed lyrica trial. Pain is unchanged. The pain is located in the lower back, left buttock. she experiences numbness inher feet and ankles although this has reduced in severity since our last visit. She describes it asa sharp, dull, tingling painful sensation. Aggravating/improving factors unchanged. The pain is present 100 % of time. Her current pain score is 4/10. Her pain at its least is 3 / 10. Her worst pain is 10 / 10. Reports weakness. Reports numbness. Denies bowel or bladder incontinence. Denies symptoms of saddleanesthesia. Denies fevers/chills/night sweats. Denies unintentional weight loss. Review of Systems: A focused 12-pt ROS were of reviewed with the patient including difficulty with sleep, snoring, aspiration history, dysphagia, stomach pain, nausea and vomiting, severe headaches, confusion, open skin lesions or wounds, chest pain, shortness of breath, excessive thirst, somnolence, dysuria, incomplete bladder emptying, easy bruising, recent clotting problems or bleeding, depression or rushed thoughts unless noted previously. Allergies, Medications, Past Medical History, Past Surgical History reviewed and documented in Epic. See detailed report if needed. Pertinent Labs/Test Results: INR ( ) Date Value 01/25/2020 0.93 No results found for: "CREATININE" Hemoglobin A1C (%) Date Value 12/01/2019 5.4 Lab Results Component Value Date/Time AMPHETAMINE NEGATIVE 01/25/2020 02:02 PM AMPHETAMINES - [facility] POSITIVE (A) 01/25/2020 02:02 PM BARBITURATES - [facility] NEGATIVE 06/14/2017 03:23 PM BENZODIAZEPINES - [facility] NEGATIVE 01/25/2020 02:02 PM METHADONE METABOLITE NEGATIVE 01/25/2020 02:02 PM OXYCODONE NEGATIVE 01/25/2020 02:02 PM CANNABINOIDS >400.0 (A) 01/25/2020 02:02 PM CANNABINOIDS - [facility] POSITIVE (A) 01/25/2020 02:02 PM URINE DRUG SCREEN RESULT 06/14/2017 03:23 PM URINE VALID INTERP NORMAL 06/14/2017 03:23 PM URINE VOLUME- [facility] 1,250 08/29/2020 01:19 PM URINE VOLUME- [facility] 1,250 08/29/2020 01:19 PM Imaging: I personally reviewed the imaging and my findings were CT L SPINE WO CONTRAST Narrative: EXAM CT L SPINE WO CONTRAST-03/30/2024 3:02 pm HISTORY LUMBAR SPINE TECHNIQUE Multiple axial views of the lumbar spine are obtained without contrast. Images are reformatted in coronal and sagittal views COMPARISON 2023 FINDINGS Five lumbar type vertebra. Anterolisthesis of L5 on S1 by 5 mm L5-S1 laminectomy discectomy with interbody fusion. There has been previous fusion hardware at thislevel. Chronic T2 vertebral body fracture or similar in height loss to prior MRI study. There is retropulsion by 3 mm similar to prior study Mild atherosclerotic calcifications in the abdominal aorta. At L4-5 there is mild bilateral foraminal narrowing At L5-S1 there is moderate to severe left foraminal narrowing. Mild right foraminal narrowing. There is a right facetectomy. Impression: IMPRESSION Postsurgical changes at L5-S1 consisting of laminectomies discectomy with partial fusion across thedisc space. 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 Objective Physical Exam: Vital Signs: LMP 03/18/2007 There is no height or weight on file to calculate BMI. General: No apparent distress. Eyes: pupils equal and round, sclera white, pupils midsize. ENT: mucous membranes moist Resp: Non-labored breathing CV: Extremities warm and well-perfused. Psych: Oriented; affect warm, insight good. Skin: No rashes or lesions appreciated on exposed skin Neuromuscular Exam: SLR positive bilaterally. SIJ TTP bilaterally. Gaenslen neg. KALEY neg. Dist/compression Sij testing neg. Assessment: Martha is a 63 year old year-old female with: Chronic radicular lumbar pain (Primary) History of lumbar spinal fusion Numbness and tingling of both legs below knees Plan: May have considered patient for caudal DARRYL given radicular pain and limitations involved with the fusion hardware, Sij maneuvers non-provocative today. Patient scheduled for lumbar fusion with Dr. Giordano at [facility]. At this time will defer injections until after surgery. Follow-up on a prn basis. Medical Decision Making I spent a total of 30-39 minutes (exact time 38 mins) on the date of service in preparation, delivery, and documentation of the care provided to Martha Lawson excluding any time spent in the performance of separately billed services or time spent by another provider/QHP. Chris Rea DO [facility] [address] [place] [phone] documented in this encounter Nursing Notes * Anastasiya Cho LPN - 04/02/2024 10:56 AM EST Patient here for follow up on low back pain and b/l lower ext numbness Had to stop lyrica due to dizzyness/side effects No change in pain/numbness since last visit documented in this encounter Plan of Treatment Upcoming Encounters Date Type Department Care Team (Late st Contact Info) Description 04/03/2024 11:30 AM EST [facility] [address] [place] [phone] Elida Lance DO [address] [place] [address] 04/10/2024 1:30 PM EST Telemedicine Psychology, [place] [address] [place] [address] Roly Miller, CHILDREN'S PROGRAM COORDINATOR [address] [place] [address] 04/16/2024 2:00 PM EST Telemedicine Psychiatry, [place] [address] [place] [address] Brooke Deluca, ANEUDY [address] [place] [address] 05/13/2024 1:00 PM EDT Telemedicine Nutrition Services [address] [place] [address] Jasvir Johnson, RDN [facility] [place] [phone] 06/02/2024 11:30 AM EDT Office Visit Orthopaedics Spine Surgery, [place] [address] [place] [address] Suzette Alcala PA-C [address] [place] [address] 06/19/2024 7:30 AM EDT Hospital Encounter [facility] OPERATING ROOM [facility] [address] [place] [address] Joseph Giordano MD [address] [place] [address] 06/19/2024 7:30 AM EDT - 06/19/2024 10:37 AM EDT Surgery [facility], OPERATING ROOM [facility], [facility] [address] [place] [address] Joseph Giordano MD [address] [place] [address] ARTHRODESIS SPINE POSTERIOR OR POSTERIOR LATERAL WITH LAMINECTOMY LUMBAR, COMBINED 10/07/2024 2:40 PM EDT Telemedicine Endocrinology [address] [place] [address] Daniel Franco MD [address] [place] [address] 10/15/2024 3:30 PM EDT Office Visit Neurology [facility] [place] [address] [facility] [place] [address] Mariya Harding PA-C [address] [place] [address] 02/03/2026 2:20 PM EST Office Visit [facility] [address] [place] [address] Yessi Morton PA-C [address] [place] [address] [place] [address] Scheduled Procedures Name Priority Associated Diagnoses Date/Ti me ARTHRODESIS SPINE POSTERIOR OR POSTERIOR LATERAL WITH LAMINECTOMY LUMBAR, COMBINED Spinal stenosis of lumbar region with neurogenic claudication 06/19/2024 7:30 AM EDT LAMINECTOMY, FACETECTOMY, OR FORAMINOTOMY (UNILATERAL OR BILATERAL WITH DECOMPRESSION OF SPINAL CORD, CAUDA EQUINA AND/OR NERVE ROOT(S) DURING POSTERIOR INTERBODY ARTHRODESIS, LUMBAR Spinal stenosis of lumbar region with neurogenic claudication 06/19/2024 7:30 AM EDT POSTERIOR SPINE INSTRUMENTATION NON SEGMENTAL Spinal stenosis of lumbar region with neurogenic claudication 06/19/2024 7:30 AM EDT INSERTION INTERBODY BIOMECHANICAL DEVICE ANTERIOR W/INTERBODY ARTHRODESIS Spinal stenosis of lumbar region with neurogenic claudication 06/19/2024 7:30 AM EDT OBTAIN AUTOGRAFT FOR SPINE SURGERY LOCAL Spinal stenosis of lumbar region with neurogenic claudication 06/19/2024 7:30 AM EDT REMOVAL POSTERIOR SPINAL NONSEGMENTAL INSTRUMENTATION Spinal stenosis of lumbar region with neurogenic claudication 06/19/2024 7:30 AM EDT Health Maintenance Due Date Last [...] Additional history exists CKD HGB USE SMARTSET 09640 10/02/202410/02, 08/14/2022, 03/16/2022, Additional history exists CKD PHOS USE SMARTSET 32391 10/17/202410/02, 03/16/2022, 02/09/2021, Additional history exists Depression [...] this encounter Medical Devices Implanted Type Area Client Services Manager Device Identifier Shelf Expiration Date Model / Serial / Lot Graft Infuse Bone Sm [id number] - [id number] Implanted:Qt y: 1 on 02/22/2012 at [place] [facility] N/A: Spine Lumbar [employer] : NEUROLOGIC PAIN 08/01/2014 [id number] / / [id number] Screw 6x45 Poly Si [id number] - [id number] Implanted:Qt y: 2 on 02/22/2012 at OR [facility] N/A: Spine Lumbar JNJ : [employer] [id number] / / Screw 7x35 Poly Si [id number] - [id number] Implanted:Qt y: 2 on 02/22/2012 at [place] [facility] N/A: Spine Lumbar JNJ : [employer] [id number] / / Asif 5.5x55 Ti Prbnt [id number] - [id number] Implanted:Qt y: 2 on 02/22/2012 at OR [facility] N/A: Spine Lumbar JNJ : DEPUY SPINE [id number] / / Screw Set Sng Inner [id number] - [id number] Implanted:Qt y: 4 on 02/22/2012 at OR [facility] N/A: Spine Lumbar JNJ : DEPUY SPINE [id number] / / Cage 28x8 Leopard [id number] - [id number] Implanted:Qt y: 1 on 02/22/2012 at OR [facility] N/A: Spine Lumbar JNJ : [employer] [id number] / / Implant Brst Mod Cls Pro 360cc - [id number] Implanted:Qt y: 1 on 11/12/2012 at OR [facility] Right: Breast MENTOR KRISSY 09/11/2017 [id number] / [id number] / [id number] Implant Brst Mod Cls Pro 360cc - [id number] Implanted:Qt y: 1 on 11/12/2012 at OR [facility] Left: Breast [employer] KR[employer]SY 08/12/2017 [id number] / [id number] / [id number] 4.0 X 14 Variable Self Starting Screw Implanted:Qt y: 4 on 02/05/2020 by Luis Eduardo Ross MD at [facility] N/A: Spine Cervical KWADWO [id number] / / 1 Level 20mm Cascade View Plate Implanted:Qt y: 1 on 02/05/2020 by Luis Eduardo Ross MD at OR [facility] N/A: Spine Cervical KWADWO [id number] / / [id number] Alcutian Implanted:Qt y: 1 on 02/05/2020 by Luis Eduardo Ross MD at OR [facility] N/A: Spine Cervical KWADWO [id number] / / Description:alctuian cage 2.5cc Vitoss Bimodal Foam Pack Implanted:Qt y: 1 on 02/05/2020 by Luis Eduardo Ross MD at OR [facility] N/A: Spine Cervical KWADWO [id number] 11/29/2020 [id number] / [id number] / [id number] Sling Desara One - [id number] Implanted:Qt y: 1 on 08/31/2022 by Chico Perry MD at OR [facility] N/A: Vagina [employer] 08/10/2023 [id number] / / [id number] documented as of this encounter Visit Diagnoses Diagnosis Spinal stenosis, lumbar- Primary Spinal stenosis, lumbar region, without neurogenic claudication Chronic radicular lumbar pain- Primary Thoracic or lumbosacral neuritis or radiculitis, unspecified History of lumbar spinal fusion Numbness and tingling of both legs below knees Disturbance of skin sensation Spinal stenosis of lumbar region with neurogenic [...] and were consensually agreed upon. Care Teams Amusement Equipment Operator Relationship Specialty Start Date End Date Elida Lance DO PCP - General Family Medicine 11/03/19 documented as of this encounter
--- OUTSIDE RECORDS SUMMARY | 2024-06-26 12:52 | External Medical Summary | Summary of Care ---
Author Name Unknown Organization [facility] Address [address] [facility] [address] Phone [phone] Care Team Providers Care Patient Registration Specialist Name Role Phone Elida Lance DO Primary Care Provider [phone] Reason for Visit * - Pending Review Specialty Diagnoses / Procedures Referred By Traci rizzo Referred To Contact Referral ID Status Reason Start Date Expiration Date V isits Requested Visits Authorized [id number] Pending Review 11/03/2023 11/01/[phone] Encounter Details Date Type Department Care Team (Late st Contact Info) Description 04/20/2024 1:30 PM EST Telemedicine Psychiatry, [place] [address] [place] [address] Brooke Deluca CRNP [address] [place] [address] Major depressive disorder, recurrent episode, moderate (HCC)* Allergies Active Allergy Reactions Criticality Noted Date Comments Nsaids 02/01/2020 Hx gastric bypass Other Allergy (See Comments) Rash Medium 013 Dermabond prineo Penicillins 10/04/1999 Rash, last dose was in her 20's Sulfa Antibiotics 10/04/1999 Rash in her early 20's documented as of this encounter (statuses as of 04/21/2024) Medications MULTIVITAMINS PO CAPS Take 1 Capsule [...] as of this encounter (statuses as of 04/21/2024) Active Problems Problem Noted Date Diagnosed Date [...] disease), lumbar 11/21/19 12 MEYER Confirmation Research Other*[id number] 06/0 11/2009 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 B12 malabsorption s/p gastric bypass 07/14/2002 Allergic rhinitis 02/12/2002 Dyslipidemia, goal LDL below 130 12/04/2001 Chronic rhinitis HTN, goal below 140/90 Spinal stenosis, lumbar Spondylolisthesis documented as of this encounter (statuses as of 04/21/2024) Resolved Problems Problem Noted Date Diagnosed Date [...] as of this encounter (statuses as of 04/21/2024) Immunizations Name Administration Dates Next Due COVID-19 [...] Progress Notes * Brooke Deluca CRNP - 04/20/2024 1:38 PM EST OUTPATIENT PSYCHIATRY RETURN VISIT DIVISION OF PSYCHIATRY [place] [address] Name: Martah Lawson : 1960 Date and Time Patient was Seen: 04/20/2024 at 1:42 PM Patient location: HOME. I was not in a hospital or clinic location. After connecting through REHo, patient was verified with two unique identifiers. Patient (or authorized legal appeals representative) was then informed that this was a Telemedicine visit and being conducted confidentially over secure lines. Methods to assure confidentiality were taken. Patient acknowledged consent and understanding of privacy and security of the Telemedicine visit. The patient agreed to participate. Start Time: 1:30 pm Stop Time: 2:00 pm Physical Location of patient: Home CC: I am doing ok INTERVAL HISTORY: Patient reports that she is doing well and that her medications are working well. She states that Wellbutrin SR has improved her mood and she is feeling less overwhelmed and more able to deal with upcoming stressors such as a surgery scheduled in June. States that she is not having any new depressive or anxious symptoms. Pt denies current or recent active or passive suicidal ideation. Denies experiencing any current or recent AVH, paranoia, and no other delusions endorsed. No signs or symptomssuggesting the presence of terri or psychosis present on exam today. Describes sleep and appetite as WNL. Discussed risks and benefits of medications. 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 DX MDD, recurrent, severe KATE MEDICATIONS CONTINUE TrIntellix 20 mg QD CONTINUE Trazodone 150 mg QHS CONTINUE Ativan 0.5 mg QHS PRN for anxiety CONTINUE Wellbutrin SR 100 mg BID [place]UMBIA-SUICIDE SEVERITY RATING SCALE Frequent Screener Ask questions that are bold and underlined Since Last Contact (Phi with an X) YES NO Have you actually had thoughts about killing yourself? x If YES, ask the following questions. If NO, go directly to the last question Have you been thinking about how you might do this? Have you had these thoughts and had some intention of acting on them? E.g. “I thought about taking an overdose, but I never made a specific plan as to when where or how I would actually do it….and I would never go through with it.” Have you started to work out or worked out the details of how to kill yourself? Do you intend to carry out this plan? As opposed to “I have the thoughts, but I definitely will not do anything about them.” Have you done anything, started to do anything, or prepared to do anything to end your life? Examples: Collected pills, obtained a gun, gave away valuables, wrote a will or suicide note, took out pills but didn't swallow any, held a gun but changed your mind or it was grabbed from your hand,went to the roof but didn't jump; or actually took pills, tried to shoot yourself, cut yourself, tried to hang yourself, etc. x Low Risk Complete or review crisis plan with patient Discuss risk/protective factors and reasons for living Moderate Risk Complete or review crisis plan with patient Discuss risk/protective factors and reasons for living Discuss removal of means High Risk Maintain 1 to 1 monitoring until assessment is completed Evaluate for higher level of care (Inpatient or PHP) Consultation with Emergency Services as appropriate If patient not admitted: Complete or review crisis plan with patient Discuss risk/protective factors and reasons for living Advise removal of means Consider family or collateral contact to promote safety Schedule follow up care consistent with assessment ALLERGIES Review of patient's allergies indicates: Allergen [...] Tablet Take 1 Tablet by mouth daily. Potassium Chloride Erin ER 10 MEQ Oral [...] Eye Relief Drops 0.2-0.2-1 % Ophthalmic Solution (Neghrlgo-Fzqfkfgmgetz-HPW 400) Instill 1 Dropinto eye as needed for Dry eyes. No current facility-administered medications for this visit. [...] Tablet Take 1 Tablet by mouth daily. Potassium Chloride Erin ER 10 MEQ Oral [...] Eye Relief Drops 0.2-0.2-1 % Ophthalmic Solution (Silprsma-Hebeupjquimq-NGU 400) Instill 1 Dropinto eye as needed for Dry eyes. No current facility-administered medications for this visit. Facility-Administered Medications Ordered in Other Visits Medication Dose Route Frequency Provider Last Rate Last Admin glycopyrrolate (ROBINUL) inj Once PRN Tj Rincon KEY RINGER 0.6 mg at 02/22/12 1103 neostigmine methylsulfate (PROSTIGMIN) 1 MG/ML inj Once PRN Tj Rincon KEY RINGER 3 mg at 02/22/12 1103 FAMILY HISTORY: Family History Problem Relation Name Age of Onset Other (ovarian ca[Other]) Mother Thyroid Disorder Mother Cancer Mother Barby Mercadoe Ovarian Ear Problems Mother Barby Fye Thyroid Disorder Mother Barby Fye Allergies Mother Barby Fye Heart Disorder Father triple by pass Lung Disorder Father sleep apnea Glaucoma Father B. [place] Fye Heart Disorder Father B. [place] Fye Hypertension Father B. [place] Fye Other (barber siri[Other]) Brother bilateral hip replacement Heart Disorder Grandmother (Maternal) S[place] Dios Hypertension Grandmother (Maternal) Saba De Dios Arthritis Grandmother (Maternal) Saba De Dios Diabetes Grandmother (Maternal) Saba Coyneon Heart Disorder Grandfather (Maternal) Bharath De Dios Hypertension Grandfather (Maternal) Bharath De Dios Cancer Grandmother (Paternal) [place] Fye Breast Heart Disorder Grandfather (Paternal) Go [...] Son Rex Rhodes Ear Problems Son [place] DKathie Rhodes Other (breast ca[Other]) Other Other (htn[Other]) [...] at the high risk obsity clinic in [facility] Pancreatitis Spinal stenosis, lumbar Spondylolisthesis SUMMARY OF/CHANGES TO PAST PSYCHIATRIC, MEDICAL, FAMILY, OR SOCIAL HISTORY: See interval history MEDICAL REVIEW OF SYSTEMS: Please see medical notes MENTAL STATUS EVALUATION: Appearance: casually dressed Muscle strength and tone: no abnormal involuntary movements noticeable Gait and Station: not assessed, patient seen via teleconference Behavior: cooperative Speech: normal, rate, tone and volume Mood: happy Affect: type - euthymic; range - full [...] to the urgency and severityof symptoms. Martha Lawson was able to verbalize understanding of the [...] medication management was spent on Billing code: [id number] and [id number] ANEUDY Maciel Psychiatrist, [facility] 04/20/2024 documented in this encounter Plan of Treatment Upcoming Encounters Date Type Department Care Team (Late st Contact Info) Description 04/30/2024 2:30 PM EST Telemedicine Psychology, [place] [address] [place] [address] Roly Miller, [facility] [address] [place] [address] 05/13/2024 1:00 PM EDT Telemedicine Nutrition Services [address] [place] [phone] Jasvir Johnson, RDN [facility] [address] 05/20/2024 11:00 AM EDT Telemedicine Psychology [facility] [address] [place] [address] Ale Arroyo PsyD [address] [place] [address] 05/28/2024 1:00 PM EDT Telemedicine Psychiatry, [place] [address] [place] [address] Brooke Deluca CRNP [address] [place] [address] 06/02/2024 11:30 AM EDT Office Visit Orthopaedics Spine Surgery, [place] [address] [facility] [address] [place] [phone] Suzette Alcala PA-C [address] [facility], [place] [id number] 06/19/2024 10:30 AM EDT Hospital Encounter OR [facility], OPERATING ROOM [facility], HAMILTON MURRYILI [address] [facility] [place] [phone] Joseph Giordano MD [address] [facility], [place] [phone] 06/19/2024 10:30 AM EDT - 06/19/2024 1:37 PM EDT Surgery OR [facility], OPERATING ROOM [facility], HAIMLTON PAVBRANSON [address] [facility] [place] [phone] Joseph Giordano MD [address] [place], [place] [id number] ARTHRODESIS SPINE POSTERIOR OR POSTERIOR LATERAL WITH LAMINECTOMY LUMBAR, COMBINED 10/07/2024 2:40 PM EDT Telemedicine Endocrinology [address] [place] [address] Daniel Franco MD [address] [place] [address] 10/15/2024 3:30 PM EDT Office Visit Neurology [facility] [address] [facility] [place] [address] Mariya Harding PA-C [address] [address] 10/21/2024 12:10 PM EDT Office Visit Family PracticeRoyal [address] [phone] Elida Lance DO [address] [address] 02/03/2026 2:20 PM EST Office Visit Dermatology, [place] [address] [phone] Yessi Morton PA-C [address] [place] [address] [place] [address] Scheduled Procedures Name Priority Associated Diagnoses Date/Ti [...] Additional history exists CKD HGB USE SMARTSET 37700 10/02/202410/02, 08/14/2022, 03/16/2022, Additional history exists CKD PHOS USE SMARTSET 88230 10/17/202410/02, 03/16/2022, 02/09/2021, Additional history exists Depression [...] this encounter Medical Devices Implanted Type Area Benefits Administrator Device Identifier Shelf Expiration Date Model / Serial / Lot Graft Infuse Bone Sm [id number] - [id number] Implanted:Qt y: 1 on 02/22/2012 at OR [facility] N/A: Spine Lumbar [employer] : NEUROLOGIC PAIN 08/01/2014 [id number] / / [id number] Screw 6x45 Poly Si [id number] - [id number] Implanted:Qt y: 2 on 02/22/2012 at OR [facility] N/A: Spine Lumbar JNJ : [employer] [id number] / / Screw 7x35 Poly Si [id number] - [id number] Implanted:Qt y: 2 on 02/22/2012 at OR [facility] N/A: Spine Lumbar JNJ : [employer] [id number] / / Asif 5.5x55 Ti Prbnt [id number] - [id number] Implanted:Qt y: 2 on 02/22/2012 at OR [facility] N/A: Spine Lumbar JNJ : DEPUY SPINE [id number] / / Screw Set Sng Inner [id number] - [id number] Implanted:Qt y: 4 on 02/22/2012 at OR [facility] N/A: Spine Lumbar JNJ : DEPUY SPINE [id number] / / Cage 28x8 Leopard [id number] - [id number] Implanted:Qt y: 1 on 02/22/2012 at OR [facility] N/A: Spine Lumbar JNJ : [employer]ATIONS [id number] / / Implant Brst Mod Cls Pro 360cc - [id number] Implanted:Qt y: 1 on 11/12/2012 at OR [facility] Right: Breast MENTOR KRISSY 09/11/2017 [id number] / [id number] / [id number] Implant Brst Mod Cls Pro 360cc - [id number] Implanted:Qt y: 1 on 11/12/2012 at OR [facility] Left: Breast MENTOR KRISSY 08/12/2017 [id number] / [id number] / [id number] 4.0 X 14 Variable Self Starting Screw Implanted:Qt y: 4 on 02/05/2020 by Luis Eduardo Ross MD at OR [facility] N/A: Spine Cervical KWADWO [id number] / / 1 Level 20mm [place] Plate Implanted:Qt y: 1 on 02/05/2020 by Luis Eduardo Ross MD at OR [facility] N/A: Spine Cervical KWADWO [id number] / / [id number] Alcutian Implanted:Qt y: 1 on 02/05/2020 by Luis Eduardo Ross MD at OR [facility] N/A: Spine Cervical KWADWO [id number] / / Description:alctuian cage 2.5cc Vitoss Bimodal Foam Pack Implanted:Qt y: 1 on 02/05/2020 by Luis Eduardo Ross MD at OR [facility] N/A: Spine Cervical KWADWO [id number] 11/29/2020 [id number] / [id number] / [id number] Rick Wall - [id number] Implanted:Qt y: 1 on 08/31/2022 by Chico Perry MD at OR [facility] N/A: Vagina [employer] 08/10/2023 [id number] / / [id number] documented as of this encounter Visit Diagnoses [...] and were consensually agreed upon. Care Teams Patient Registration Specialist Relationship Specialty Start Date End Date Elida Lance DO PCP - General Family Medicine 11/03/19 documented as of this encounter
--- OUTSIDE RECORDS SUMMARY | 2024-06-26 12:53 | External Medical Summary | Summary of Care ---
Author Name Unknown Organization [facility] Address [address] [facility] [place] [address] Phone [phone] Care Team Providers Care Director Of Industrial Relations Name Role Phone Elida Lance DO Primary Care Provider [phone] Reason for Visit * Reason Comments Follow Up Anxiety Depression * - Authorized Specialty Diagnoses / Procedures Referred By Traci rizzo Referred To Contact Referral ID Status Reason Start Date Expiration Date V isits Requested Visits Authorized [id number] Authorized 11/03/2023 11/01/2024 [id number] Encounter Details Date Type Department Care Team (Late st Contact Info) Description 03/13/2024 1:30 PM EST [facility], [place] [address] [place] [address] Roly Miller, [facility] [address] [place] [address] Borderline personality disorder (HCC)* Allergies Active Allergy Reactions Criticality Noted Date Comments Nsaids 02/01/2020 Hx gastric bypass Other Allergy (See Comments) Rash Medium 013 Dermabond prineo Penicillins 10/04/1999 Rash, last dose was in her 20's Sulfa Antibiotics 10/04/1999 Rash in her early 20's documented as of this encounter (statuses as of 03/13/2024) Medications MULTIVITAMINS PO CAPS one daily Active [...] Patient taking differently: Twice daily, Reported on 09/13/2023 Hair Skin & Nails Advanced Oral Tablet [...] tablet by mouth twice daily 180 Tablet 12/20/2023 11:51 AM EDT 4 Active methylPREDNISolo ne 4 MG Oral Tablet Therapy Pack (Medrol Dosepack) follow package directions 21 Tablet 4 Active Additional Information Patient not taking.Reported on 01/09/2024 buPROPion HCl ER (SR) 100 MG Oral Tablet Extended Release 12 Hour (Wellbutrin SR) Take 1 Tablet by mouth every evening. 30 Tablet 2 01/09/2024 2:03 PM EST 4 Active traZODone HCl 150 [...] in the morning. 90 Tablet 1 5 Active documented as of this encounter (statuses as of 03/13/2024) Active Problems Problem Noted Date Diagnosed Date Major depressive disorder, recurrent, in partial remission 12/27/2021 Generalized anxiety disorder 12/27/2021 S/P cervical spinal fusion 02/05/2020 DDD (degenerative disc disease), cervical 2017 Major depressive disorder, recurrent, moderate 0 06/14/2017 Memory changes 01/01/2017 Benign hypertension with CKD (chronic kidney disease) stage III 12/26/2016 Controlled substance agreement signed 04/08/2015 DDD (degenerative disc disease), lumbar 11/21/19 12 [place] Confirmation Research Other*[id number] 11/2009 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 B12 malabsorption s/p gastric bypass 07/14/2002 Allergic rhinitis 02/12/2002 Dyslipidemia, goal LDL below 130 12/04/2001 Chronic rhinitis HTN, goal below 140/90 Spinal stenosis, lumbar Spondylolisthesis documented as of this encounter (statuses as of 03/13/2024) Resolved Problems Problem Noted Date Diagnosed Date [...] as of this encounter (statuses as of 03/13/2024) Immunizations Name Administration Dates Next Due COVID-19 mRNA, LNP-s, No Pre serve, 2-Dose Series (Pfizer) 12/08/2020,11/17/2020 Pneumococcal Conjugate Vacc, 13 Valent (Prevnar) 07/09/2016 Pneumococcal Polysaccharide PPV23 (Pneumovax) 08/21/2013 Seasonal Influenza Vac., MDV , IM, 0.5 mL (Fluzone) 11/13/2011,02/06/2010,03/02/2009,01/12,12/04/2006,03/08/2006 Seasonal Influenza, PF, 6 M & above, IM , (FluLaval or Fluzone) 03/20/2023,01/31/2022,02/09/2021,01/04,12/19/2017 Seasonal Influenza, Quadriva lent, No Preserve, IM 11/16/2016,11/16/2015 TDAP (age 10 and older)(Boostrix) 02/18/2023 TDAP, [...] 10/23/2023 Transportation Needs Answer Date Record ed READ ONLY Do you have troubl e getting a ride to medical visits or work? Never True 10/23/2023 Does your family have a hard [...] place to sleep at night? No 10/23/2023 READ ONLY Do you think you a re at risk of becoming homeless? No 10/23/2023 Does your family worry about paying [...] Tarik Flores RN * Do you have difficulty dressing [...] in this encounter Progress Notes * Roly Miller LCSW - 03/13/2024 1:17 PM EST Patient location: HOME. I was not in a hospital or clinic location. After connecting through [email or web address], patient was verified with two unique identifiers. Patient (or authorized legal insurance service representative) was then informed that this was a Telemedicine visit and being conducted confidentially over secure lines. Methods to assure confidentiality were taken. Patient acknowledged consent and understanding of privacy and security of the Telemedicine visit. The patient agreed to participate. Start Time: 1:17 pm Stop Time: 1:58 pm Total direct time: 41 minutes BEHAVIORAL MEDICINE RETURN VISIT PROGRESS NOTE Psychology, [address] [facility] [address] 03/13/2024 1:17 PM TYPE OF VISIT: Individual DIAGNOSIS: Borderline personality disorder (HCC) (Primary) REASON FOR SESSION: Individual therapy Session #: 22 SESSION FOCUS: depression and anxiety NOTES: Therapist met with patient to complete an individual session. Patient processed depression and anxiety. Patient denied any SI/HI. Patient Patient denied any self-harm. Patient stated, "She had a couple of disappointments around [place] time". Patient stated, "I had mom guilt because I didn't hear from my son the Saturday after Ig[place]". Patient reported she is blaming herself partially, as she feels maybe she did not raise her son correctly, who the patient stated, "Has been an alcoholic since he was teenager". Patient stated, "I am is not seeing much of difference from Wellbutrin, but I I have an appointmentwith the psychiatrist next week". Patient reported she is still not eating much, but is seeing the record changer tester. Patient reported she is going to try eating fruit flavored cottage cheese. Patient and therapist identified the following strengths [...] good PROGRESS TOWARDS GOALS: Patient reported increased depression, but the same level of anxiety since the last session with this marine underwriter. Goal: Improved self-management of depression and [...] (KATE-7): 2 (Minimal 0-4) C-SSRS administered: Yes -Risk level same as last session (see note dated 02/17/2024 for further details) Safety Plan: Crisis Plan [...] Professional Resources: 1. Local Crisis Services: For [place] [phone] [facility] 2. [facility] Division of Psychiatry: [phone] 3. [place] Suicide Prevention Lifeline: or 988 4. National Crisis Text Line: Text HOME to 119736 5. 911 or proceed to the nearest emergency room Step 6: Keeping the environment safe: Plan for restricting access to lethal means (firearms, medications). N/A INTERVENTION: labeling emotions, processing, clarification, treatment planning TREATMENT PLAN: Outpatient Adult Therapy Treatment Plan [...] ED, hotlines): Suicide and Crisis Lifeline - [facility]88[facility] Crisis Contact [place] [phone] [facility], and Clinic number: [phone] and Suicide Safety Plan Signature Obtained on [...] clinical assessment: PHQ-9 Adult Data KATE-7 Data [place] Suicide Screen Data Discharge Discussed with patient: Patient continues to need treatment Collaboration of Care: Yes, provider within [facility], information is shared automatically in medical record Is this the patients' initial treatment plan? No FOLLOW-UP PLAN: Return: 2 weeks Appointment: 03/27/2024 at 11:00 am Action Plan: 1. Continue Cognitive Behavioral Therapy 2. Continue medication management with ANEUDY Maciel Treatment plan reviewed with the patient. Patient voices understanding and concurs with plan. PATIENT EDUCATION: Verbal & written Roly Miller [facility] Division of Psychiatry & Behavioral Medicine [facility] [phone] National Suicide Prevention Lifeline : 984 Crisis Textline : Text "HOME" to 936802 to connect with a crisis counselor Crisis Numbers by [facility]: [place] [facility] - Emergency Services [facility] (0-983-3-YOU CAN) resolve Crisis Network [facility] . The Open Door - Crisis Intervention [facility] Crisis Help-Line Pyrites & [place] [facility] - Crisis Intervention Services [facility] Service Access [employer] - Crisis Intervention [place] Choose option [address] [place] [address] of Tug Boat Captain Carline Lopez & Zeeshan Crisis Intervention [place] [facility] - Mental Health Crisis [place] [facility] - Crisis Intervention [place] - Crisis Intervention Jonathan Whitehead Potter - Crisis Line Matthias Montes [place] - Mental Health Crisis Hotline [place] [facility] - Crisis Services Delaplaine [facility] Crisis Center [place] Service Access [employer] - Crisis Intervention Krysten - Mental Health Crisis Intervention Services [place] [facility] MH/ID Program Joshua Myers Snyder, [place] - Crisis System [place] [facility] - Crisis Hotline Staci (3-055-226-HELP) [facility] - Crisis Intervention [facility] - Crisis Intervention [facility] - Crisis Services [place] [facility] Behavioral Health - Crisis Center [place] [phone] [facility] Crisis Hotline Radha (8:30 am-5:00 pm) OR (after 5:00 pm, weekends & holidays) Maldonado [facility] Crisis Intervention Program [facility] - Mental Health Crisis Line Lamar, Alison and Sandra [facility] Crisis Tunde & Brittni [facility] - Crisis Intervention [place] [facility] - Mental Health Crisis Service [place] [facility] - Crisis Intervention [place] [facility] - Crisis Intervention [place] [facility] - Help Line [facility] MH/ID Program Keisha [facility] - Crisis Intervention [place] [facility] - Crisis Intervention [place] [facility] Emergency Services, [facility] - Crisis Intervention [facility] Behavioral Health - Emergency Services [place] [facility] - Crisis Line [place] - DBHIDS - Suicide and Crisis Intervention Hotline [facility] - Crisis/ Emergency Services [facility] - Emergency Contact Line [place] [facility] - Crisis Line Hardy ext. 1 [facility] Human Services [facility] Action - Crisis Intervention Hotline [facility] Crisis Intervention Services documented in this encounter Plan of Treatment Upcoming Encounters Date Type Department Care Team (Late st Contact Info) Description 03/16/2024 2:30 PM EST Telemedicine Psychiatry, [place] [address] [place] [place] [phone] Brooke Deluca CRNP [address] [facility] [place] [id number] 03/24/2024 11:30 AM EST Office Visit Orthopaedics Spine Surgery, [place] [address] [place] [phone] Elham Gutierrez, JENNIFER [address] [place] [address] 03/27/2024 11:00 AM EST Telemedicine Psychology, [place] [address] [place] [phone] Roly Miller LCSW [address] [place] [address] 03/30/2024 1:30 PM EST Imaging Radiology [facility] [address] [facility] [place] [phone] 04/02/2024 11:25 AM EST Office Visit Interventional Pain Center [facility] [address] [place] [phone] Chris Rea, DO [address] [place] [phone] 04/03/2024 12:10 PM EST Office Visit Family Practice, [place] [address] [place] [address] Elida Lance, DO [address] [facility] [place] [address] 05/13/2024 1:00 PM EDT Telemedicine Nutrition Services [address] [place] [address] Jasvir Johnson, RDN [facility] [facility] [place] [address] 10/07/2024 2:40 PM EDT Telemedicine Endocrinology [address] [place] [address] Daniel Franco MD [address] [place] [address] 10/15/2024 3:30 PM EDT Office Visit Neurology [facility] [address] [place] [address] Mariya Harding PA-C [address] [place] [address] 02/03/2026 2:20 PM EST Office Visit Dermatology, [place] [address] [place] [address] Yessi Morton PA-C [address] [place] [address] [place] [address] Health Maintenance Due Date Last Done Comments Fecal Occult Blood Test 2006 Sigmoidoscopy 2006 Mammogram 08/09/2017 08/09/2016, 09/2015, 08/05/2014, Additional history exists Pneumococcal Vaccine: 50+ Years (3 of 3 - PCV20 or PCV21) 07/09/2021 07/09/2016, 08/21/2013 Colonoscopy 01/14/2022 01/15/2012, 01/15/2012 COVID-19 Vaccine ( season) 2023 12/08/2020, 11/17/2020 Influenza Vaccine (FLU shot) (#1) 2023 03/20/2023, 01/31/2022, 02/09/2021, Additional history exists Albumin/Creatinine Ratio 03/21/2024 024, 02/03/2019, 09/05/2017, Additional history exists GFR 04/19/2024 10/18/2023, 08/0 03/2023, 03/20/2023, Additional history exists CKD HGB USE SMARTSET 93544 10/02/202410/02, 08/14/2022, 03/16/2022, Additional history exists CKD PHOS USE SMARTSET 70447 10/17/202410/02, 03/16/2022, 02/09/2021, Additional history exists Depression Monitoring 01/01/2025 01/02/2024, 024 Cologuard 04/04/2025 04/04/2022, 03/05, 03/27/2022 Colorectal Cancer Screening 04/04/2025 Diabetes Screening 10/17/2026 10/18/2023, 0 10/03/2023, 03/20/2023, Additional history exists Lipid Panel 09/12/2028 09/13/2023, 10/02, 02/03/2019, Additional history exists DTap/Tdap Vaccines (3 - Td or Tdap) 02/18/2033 02/18/2023, 02/06/2010, 01/11/2005, Additional history exists Zoster Vaccines Completed 06/17/2018, 02/02, 07/09/2016 HPV (Gardasil) Vaccine Aged Out No lo nger eligible based on patient's age to complete this topic Hepatitis B Vaccine Aged Out No longe r eligible based on patient's age to complete this topic MENINGOCOCCAL (MENACTRA/MENVEO) Aged Out No longer eligible based on patient's age to complete this topic documented as of this encounter Medical Devices Implanted Type Area Action Installer Device Identifier Shelf Expiration Date Model / Serial / Lot Graft Infuse Bone Sm [id number] - [id number] Implanted:Qt y: 1 on 02/22/[address] [facility] [facility] N/A: Spine Lumbar [employer] : NEUROLOGIC PAIN 08/01/2014 [id number] / / [id number] Screw 6x45 Poly Si [id number] - [id number] Implanted:Qt y: 2 on 02/22/[address] [facility] [place] [facility] N/A: Spine Lumbar JNJ : [employer] [id number] / / Screw 7x35 Poly Si [id number] - [id number] Implanted:Qt y: 2 on 02/22/[address] [facility] [place] [facility] N/A: Spine Lumbar JNJ : [employer] [id number] / / Asif 5.5x55 Ti Prbnt [id number] - [id number] Implanted:Qt y: 2 on 02/22/[address] [facility] [place] N/A: Spine Lumbar JNJ : DEPUY SPINE [id number] / / Screw Set Sng Inner [id number] - [id number] Implanted:Qt y: 4 on 02/22/[address] [facility] [place] N/A: Spine Lumbar JNJ : DEPUY SPINE [id number] / / Cage 28x8 Leopard [id number] - [id number] Implanted:Qt y: 1 on 02/22/[address] [facility] [place] N/A: Spine Lumbar JNJ : [employer] [id number] / / Implant Brst Mod Cls Pro 360cc - [id number] Implanted:Qt y: 1 on 11/12/[address] [facility] [place] Right: Breast MENTOR KRISSY 09/11/2017 [id number] / [id number] / [id number] Implant Brst Mod Cls Pro 360cc - [id number] Implanted:Qt y: 1 on 11/12/[address] [facility] [place] [facility] Left: Breast MENTOR KRISSY 08/12/2017 [id number] / [id number] / [id number] 4.0 X 14 Variable Self Starting Screw Implanted:Qt y: 4 on 02/05/2020 by Luis Eduardo Ross MD at OR [facility] N/A: Spine Cervical KWADWO [id number] / / 1 Level 20mm Dewitt View Plate Implanted:Qt y: 1 on 02/05/2020 by Luis Eduardo Ross MD at OR [facility] N/A: Spine Cervical KWADWO [id number] / / [id number] Alcutian Implanted:Qt y: 1 on 02/05/2020 by Luis Eduardo Ross MD at OR [facility] N/A: Spine Cervical KWADWO [id number] / / Description:alctuian cage 2.5cc Vitoss Bimodal Foam Pack Implanted:Qt y: 1 on 02/05/2020 by Luis Eduardo Ross MD at OR [facility] N/A: Spine Cervical KWADWO [id number] 11/29/2020 [id number] / [id number] / [id number] Sling Desara One - [id number] Implanted:Qt y: 1 on 08/31/2022 by Chico Perry MD at OR [facility] N/A: Vagina [employer] 08/10/2023 [id number] / / [id number] documented as of this encounter Visit Diagnoses [...] and were consensually agreed upon. Care Teams Director Of Industrial Relations Relationship Specialty Start Date End Date Elida Lance DO PCP - General Family Medicine 11/03/19 documented as of this encounter
--- OUTSIDE RECORDS SUMMARY | 2024-06-26 12:53 | External Medical Summary | Summary of Care ---
Author Name Unknown Organization [facility] Address [address] [facility] [place] [address] Phone [phone] Care Team Providers Care Staff Physician Name Role Phone Elida Lance DO Primary Care Provider [phone] Reason for Visit * Reason Comments Follow Up Anxiety Depression * - Authorized Specialty Diagnoses / Procedures Referred By Traci rizzo Referred To Contact Referral ID Status Reason Start Date Expiration Date V isits Requested Visits Authorized [id number] Authorized 11/03/2023 11/01/2024 [id number] Encounter Details Date Type Department Care Team (Late st Contact Info) Description 03/13/2024 1:30 PM EST [place], [place] [address] [place] [address] Krzysztof Muniz, [facility] [address] [place] [address] Borderline personality disorder (HCC)* Allergies [...] tablet by mouth daily 45 Tablet 3 4 4:29 PM EDT 07/10/19 24 Active LORazepam 0.5 MG Oral Tablet (Ativan) Take 1 Tablet by mouth as needed for Anxiety. 15 Tablet 2 4 8:50 AM EDT 07/17/19 24 Active Primidone 50 MG Oral Tablet (Mysoline) Take one-half tablet by mouth twice daily 180 Tablet 5 2:46 PM EST 10/16/19 24 Active methylPREDNISol one 4 MG Oral Tablet Therapy Pack (Medrol Dosepack) follow package directions 21 Tablet 11/01/19 24 Active Additional Information Patient not taking.Reported on [...] PM EST 03/12/19 25 Active buPROPion HCl ER (SR) 100 MG Oral Tablet Extended Release 12 Hour (Wellbutrin SR) Take 1 Tablet by mouth every evening. 30 Tablet 2 4 2:03 PM EST 01/08/20 24 025 Discontinued documented as of this [...] DDD (degenerative disc disease), lumbar 11/21/19 12 [place] Confirmation Research Other*[id number] 06/0 11/2009 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 B12 [...] mRNA, LNP-s, No Pre serve, 2-Dose Series (RunAlong) 12/08/2020,11/17/2020 Pneumococcal Conjugate Vacc, 13 Valent (Prevnar) [...] documented in this encounter Progress Notes * Krzysztof Muniz, PROGRAMMING DEVELOPMENT PROJECT MANAGER - 03/13/2024 1:17 PM EST Patient location: HOME. I was not in a hospital or clinic location. After connecting through getbetter!o, patient was verified with two unique identifiers. Patient (or authorized legal phlebotomy services representative) was then informed that this was a Telemedicine visit and being conducted confidentially over secure lines. Methods to assure confidentiality were taken. Patient acknowledged consent and understanding of privacy and security of the Telemedicine visit. The patient agreed to participate. Start Time: 1:17 pm Stop Time: 1:58 pm Total direct time: 41 minutes BEHAVIORAL MEDICINE RETURN VISIT PROGRESS NOTE Psychology, [address] [address] 03/13/2024 1:17 PM TYPE OF VISIT: Individual DIAGNOSIS: Borderline personality disorder (HCC) (Primary) REASON FOR SESSION: Individual therapy Session #: 22 SESSION FOCUS: depression and anxiety NOTES: Therapist met with patient to complete an individual session. Patient processed depression and anxiety. Patient denied any SI/HI. Patient Patient denied any self-harm. Patient stated, "She had a couple of disappointments around Iglesia time". Patient stated, "I had mom guilt because I didn't hear from my son the Saturday after Lawson". Patient reported she is blaming herself partially, [...] not eating much, but is seeing the cop. Patient reported she is going to try [...] anxiety since the last session with this life insurance underwriter. Goal: Improved self-management of depression and [...] number): Professional Resources: 1. Local Crisis Services: [place] [phone] [facility] 2. [facility] Division of Psychiatry: [phone] 3. National Suicide Prevention Lifeline: or 558 4. National Crisis Text Line: Text HOME to 140296 5. 911 or proceed to the nearest [...] ED, hotlines): Suicide and Crisis Lifeline - [address] [place] [address] Crisis Contact [place] [phone] [facility], and Clinic number: [phone] and Suicide Safety Plan Signature Obtained on [...] based on clinical assessment: PHQ-9 Adult Data AKTE-7 Data [place] Suicide Screen Data Discharge Discussed with patient: Patient continues to need treatment Collaboration of Care: Yes, provider within [facility], information is shared automatically in medical record Is this the patients' initial treatment plan? No FOLLOW-UP PLAN: Return: 2 weeks Appointment: 03/27/2024 at 11:00 am Action Plan: 1. Continue Cognitive Behavioral Therapy 2. Continue medication management with ANEUDY Maciel Treatment plan reviewed with the patient. Patient voices understanding and concurs with plan. PATIENT EDUCATION: Verbal & written Krzysztof Muniz [facility] Division of Psychiatry & Behavioral Medicine [facility] [phone] National Suicide Prevention Lifeline : 988 Crisis Textline : Text "HOME" to 756563 to connect with a crisis counselor Crisis Numbers by [facility]: [facility] Services - Emergency Services [facility] (769-6-YOU CAN) resolve Crisis Network [facility] . The Open Door - Crisis Intervention [place] Crisis Help-Line [facility] - Crisis Intervention Services [facility] Service Access [employer] - Crisis Intervention [place] Choose option 1 - [facility] Department of Clinical Biochemist Carline Lopez & Zeeshan Crisis Intervention [facility] - Mental Health Crisis Anjana [facility] - Crisis Intervention [place] [facility] - Crisis Intervention Jonathan Whitehead Potter - Crisis Line Matthias Montes [place]ike - Mental Health Crisis Hotline [place] [facility] - Crisis Services Emmett [facility] Service Access [place], [facility] - Crisis Intervention Krysten - Mental Health Crisis Intervention Services [facility] MH/ID Program Joshua Myers Snyder, [place] - Crisis System [place] [facility] - Crisis Hotline [place] & John (0-905-416-SXOW) [facility] - Crisis Intervention [place] - Crisis Intervention [facility] - Crisis Services [place] [facility] Health - Crisis Center [place] [phone] [facility] Crisis Hotline Radha (8:30 am-5:00 pm) [place] (after 5:00 pm, weekends & holidays) [facility] Crisis Intervention Program [facility] [place] Mental [facility] Crisis Line Alison Newton and Sandra - [facility] Crisis Tunde & Britnti [facility] - Crisis Intervention [place] [facility] - Mental Health Crisis Service [place] [facility] - Crisis Intervention [place] [facility] - Crisis Intervention Coosa & Kallie [facility] - Help Line [facility] MH/ID Program Keisha Mclean [place] - Crisis Intervention [place] [facility] - Crisis Intervention [place] [facility] Emergency Services, [facility] - Crisis Intervention [place] [facility] Health - Emergency Services [facility] - Crisis Line [place] - DBHIDS - Suicide and Crisis Intervention Hotline [facility] - Crisis/ Emergency Services [place] [facility] - Emergency Contact Line [place] [facility] - Crisis Line [place] ext. 1 [facility] Human Services [facility] Action - Crisis Intervention Hotline [place] [facility] Crisis Intervention Services documented in this encounter Miscellaneous Notes * Addendum Note - Krzysztof Muniz LCSW - 03/27/2024 10:47 AM ESTAddended by: KRZYSZTOF MUNIZ on: 03/27/2024 10:47 AM Modules accepted: Level of Service documented in this encounter Plan of Treatment Upcoming Encounters Date Type Department Care Team (Late st Contact Info) Description 03/27/2024 11:00 AM EST Telemedicine Psychology, [place] [address] [facility] [place] [phone] Krzysztof Muniz LCSW [address] [facility] [place] [phone] Borderline personality disorder (HCC)* 03/30/2024 1:30 PM EST Imaging Radiology [facility] [address] [place] [phone] 03/31/2024 3:30 PM EST Imaging Radiology [facility] 1st [facility] [address] [place] [phone] 04/02/2024 11:25 AM EST Office Visit Interventional Pain Center [facility] [address] [place] [phone] Chris Rea, DO [address] [place] [phone] 04/03/2024 11:30 AM EST Office Visit Family [facility], [facility] [address] [facility] [phone] Elida Lance, DO [address] [facility] [place] [address] 04/16/2024 2:00 PM EST Telemedicine Psychiatry, [place] [address] [facility] [facility] [address] Brooke Deluca CRNP [address] [facility] [facility] [address] 05/13/2024 1:00 PM EDT Telemedicine Nutrition Services [address] [place] [address] Jasvir Johnson, RDN [address] [place] [address] 10/07/2024 2:40 PM EDT Telemedicine Endocrinology [address] [place] [phone] Daniel Franco MD [address] [place] [address] 10/15/2024 3:30 PM EDT Office [facility] [address] [place] [address] Mariya Harding, PAEfrainC [address] [place] [address] 02/03/2026 2:20 PM EST Office Visit Dermatology, [address] [place] [phone] Yessi Morton PA-C [address] [place] [address] [place] [address] Health Maintenance Due Date Last Done Comments [...] Additional history exists CKD HGB USE SMARTSET 00508 10/02/202410/02, 08/14/2022, 03/16/2022, Additional history exists CKD PHOS USE SMARTSET 36114 10/17/202410/02, 03/16/2022, 02/09/2021, Additional history exists Depression [...] this encounter Medical Devices Implanted Type Area Printed Circuit Board Pcb Designer Device Identifier Shelf Expiration Date Model / Serial / Lot Graft Infuse Bone Sm [id number] - [id number] Implanted:Qt y: 1 on 02/22/2012 at [place] [facility] [place]: Spine Lumbar MED[employer]ONIC : NEUROLOGIC PAIN 08/01/2014 [id number] / / [id number] Screw 6x45 Poly Si [id number] - [id number] Implanted:Qt y: 2 on 02/22/2012 at [place] [facility] N/A: Spine Lumbar JNJ : ETHICON CARDIOVATIONS [id number] / / Screw 7x35 Poly Si [id number] - [id number] Implanted:Qt y: 2 on 02/22/2012 at [place] [facility] N/A: Spine Lumbar JNJ : ETHICON CARDIOVATIONS [id number] / / Asif 5.5x55 Ti Prbnt [id number] - [id number] Implanted:Qt y: 2 on 02/22/2012 at [place] [facility] N/A: Spine Lumbar JNJ : DEPUY SPINE [id number] / / Screw Set Sng Inner [id number] - [id number] Implanted:Qt y: 4 on 02/22/2012 at [place] [facility] N/A: Spine Lumbar JNJ : DEPUY SPINE [id number] / / Cage 28x8 Leopard [id number] - [id number] Implanted:Qt y: 1 on 02/22/2012 at [place] [facility] N/A: Spine Lumbar JNJ : ETHICON CARDIOVATIONS [id number] / / Implant Brst Mod Cls Pro 360 - [id number] Implanted:Qt y: 1 on 11/12/2012 at [place] [facility] Right: Breast MENTOR KRISYS 09/11/[address] [place] [address] / [id number] / [id number] Implant Brst Mod Cls Pro 360 - [id number] Implanted:Qt y: 1 on 11/12/2012 at [place] [facility] Left: Breast MENTOR KRISSY 08/12/[address] [place] [address] / [id number] / [id number] 4.0 X 14 Variable Self Starting Screw Implanted:Qt y: 4 on 02/05/2020 by Luis Eduardo Ross MD at OR [facility] N/A: Spine Cervical KWADWO [id number] / / 1 Level 20mm [place] View Plate Implanted:Qt y: 1 on 02/05/2020 by Luis Eduardo Ross MD at OR [facility] N/A: Spine Cervical KWADWO [id number] / / [id number] ree Al[place] Implanted:Qt y: 1 on 02/05/2020 by Luis Eduardo Ross MD at OR [facility] N/A: Spine Cervical KWADWO [id number] / / Description:alctuian cage 2.5cc Vitoss Bimodal Foam Pack Implanted:Qt y: 1 on 02/05/2020 by Luis Eduardo Ross MD at OR [facility] N/A: Spine Cervical KWADWO [id number] 11/29/2020 [id number] / [id number] / [id number] [facility] - [id number] Implanted:Qt y: 1 on 08/31/2022 by [place] Perry MD at OR [facility] N/A: Vagina [employer] 08/10/2023 [id number] / / [id number] documented as of this encounter Visit Diagnoses Diagnosis Borderline personality disorder (HCC)- Primary Borderline personality disorder Borderline personality disorder (HCC)- Primary Borderline personality [...] and were consensually agreed upon. Care Teams Staff Physician Relationship Specialty Start Date End Date Elida Lance DO PCP - General Family Medicine 11/03/19 documented as of this encounter
--- OUTSIDE RECORDS SUMMARY | 2024-06-26 12:53 | External Medical Summary | Summary of Care ---
Author Name Unknown Organization [facility] Address [address] [facility] [place] [place] [address] Phone [phone] Care Team Providers Care Supply Chain Tech Name Role Phone Elida Lance DO Primary Care Provider Encounter Details Date Type Department Care Team (Late st Contact Info) Description 03/23/2024 Population Health External Data Unspecified Department Allergies Active Allergy Reactions Criticality Noted Date Comments Nsaids 02/01/2020 Hx gastric bypass Other Allergy (See Comments) Rash Medium 013 Dermabond prineo Penicillins 10/04/1999 Rash, last dose was in her 20's Sulfa Antibiotics 10/04/1999 Rash in her early 20's documented as of this encounter (statuses as of 03/23/2024) Medications MULTIVITAMINS PO CAPS one daily Active [...] 2 03/19/2024 11:26 AM EST 5 Active documented as of this encounter (statuses as of 03/23/2024) Active Problems Problem Noted Date Diagnosed Date Major depressive disorder, recurrent, in partial remission 12/27/2021 Generalized anxiety disorder 12/27/2021 S/P cervical spinal fusion 02/05/2020 DDD (degenerative disc disease), cervical 2017 Major depressive disorder, recurrent, moderate 0 06/14/2017 Memory changes 01/01/2017 Benign hypertension with CKD (chronic kidney disease) stage III 12/26/2016 Controlled substance agreement signed 04/08/2015 DDD (degenerative disc disease), lumbar 11/21/19 12 [place] Confirmation Research Other*[id number] 06/0 11/2009 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 B12 malabsorption s/p gastric bypass 07/14/2002 Allergic rhinitis 02/12/2002 Dyslipidemia, goal LDL below 130 12/04/2001 Chronic rhinitis HTN, goal below 140/90 Spinal stenosis, lumbar Spondylolisthesis documented as of this encounter (statuses as of 03/23/2024) Resolved Problems Problem Noted Date Diagnosed Date [...] as of this encounter (statuses as of 03/23/2024) Immunizations Name Administration Dates Next Due COVID-19 [...] Tarik Flores RN documented in this encounter Plan of Treatment Upcoming Encounters Date Type Department Care Team (Late st Contact Info) Description 03/24/2024 11:30 AM EST Office Visit Orthopaedics Spine Surgery, [place] [address] [facility] [place] [phone] Elham Gutierrez PA-C [address] [facility] [place] [address] 03/27/2024 11:00 AM EST Telemedicine Psychology, [address] [place] [phone] Roly Miller, UNDERGROUND MINE MACHINERY MECHANIC [address] [place] [address] 03/30/2024 1:30 PM EST Imaging Radiology [facility] [address] [place] [address] 04/02/2024 11:25 AM EST Office Visit Interventional Pain Center [facility] [address] [place] [phone] Chris Rea, DO [address] [place] [phone] 04/03/2024 12:10 PM EST Office Visit Family [facility], [facility] [address] [place] [phone] Elida Lance, DO [address] [place] [address] 04/16/2024 2:00 PM EST Telemedicine Psychiatry, [place] [address] [place] [address] Brooke Deluca CRNP [address] [place] [address] 05/13/2024 1:00 PM EDT Telemedicine Nutrition Services [address] [place] [address] Jasvir Johnson, RDN [address] [place] [place] [address] 10/07/2024 2:40 PM EDT Telemedicine Endocrinology [address] [place] [address] Daniel Franco MD [address] [place] [address] 10/15/2024 3:30 PM EDT Office Visit Neurology [place] [address] [place] [address] Mariya Harding PA-C [address] [place] [address] 02/03/2026 2:20 PM EST Office Visit Dermatology, [address] [place] [phone] Yessi Morton PA-C [address] [place] [address] [place] [address] Health Maintenance Due Date Last Done Comments Fecal Occult Blood Test 2006 Sigmoidoscopy 2006 Mammogram 08/09/2017 08/09/2016, 09/2015, 08/05/2014, Additional history exists Pneumococcal Vaccine: 50+ Years (3 of 3 - PCV20 or PCV21) 07/09/2021 07/09/2016, 08/21/2013 Colonoscopy 01/14/2022 01/15/2012, 01/15/2012 COVID-19 Vaccine (3 - season) 2023 12/08/2020, 11/17/2020 Influenza Vaccine (FLU shot) (#1) 2023 03/20/2023, 01/31/2022, 02/09/2021, Additional history exists Albumin/Creatinine Ratio 03/21/202403/21/2 024, 02/03/2019, 09/05/2017, Additional history exists GFR 04/19/2024 10/18/2023, 08/0 03/2023, 03/20/2023, Additional history exists CKD HGB USE SMARTSET 27800 10/02/202410/02, 08/14/2022, 03/16/2022, Additional history exists CKD PHOS USE SMARTSET 83018 10/17/2024 08/08/2023, 03/16/2022, 02/09/2021, Additional history exists Depression Monitoring [...] this encounter Medical Devices Implanted Type Area Brokerage Branch Manager Device Identifier Shelf Expiration Date Model / Serial / Lot Graft Infuse Bone Sm [id number] - [id number] Implanted:Qt y: 1 on 02/22/2012 [place] [facility] [place]: Spine Lumbar [employer] : NEUROLOGIC PAIN 08/01/2014 [id number] / / [id number] Screw 6x45 Poly Si [id number] - [id number] Implanted:Qt y: 2 on 02/22/2012 [place] [facility] [place]/A: Spine Lumbar JNJ : ETHICON CARDIOVATIONS [id number] / / Screw 7x35 Poly Si [id number] - [id number] Implanted:Qt y: 2 on 02/22/2012 at [place] [facility] [place]/A: Spine Lumbar JNJ : ETHICON CARDIOVATIONS [id number] / / Asif 5.5x55 Ti Prbnt [id number] - [id number] Implanted:Qt y: 2 on 02/22/2012 at [place] [facility] [place]/A: Spine Lumbar JNJ : DEPUY SPINE [id number] / / Screw Set Sng Inner [id number] - [id number] Implanted:Qt y: 4 on 02/22/2012 at [place] [facility] [place] N/A: Spine Lumbar JNJ : DEPUY SPINE [id number] / / Cage 28x8 Leopard [id number] - [id number] Implanted:Qt y: 1 on 02/22/2012 at [place] [facility] [place] N/A: Spine Lumbar JNJ : ETHICON CARDIOVATIONS [id number] / / Implant Brst Mod Cls Pro 360cc - [id number] Implanted:Qt y: 1 on 11/12/2012 at [place] [facility] Right: Breast MENTOR KRISSY 09/11/2017 [id number] / [id number] / [id number] Implant Brst Mod Cls Pro 360cc - [id number] Implanted:Qt y: 1 on 11/12/2012 at [place] [facility] Left: Breast MENTOR KRISSY 08/12/2017 [facility]7360 / [id number] / [id number] 4.0 X 14 Variable Self Starting Screw Implanted:Qt y: 4 on 02/05/2020 by Luis Eduardo Ross MD at OR [facility] N/A: Spine Cervical KWADWO [id number] / / 1 Level 20mm [place] View Plate Implanted:Qt y: 1 on 02/05/2020 by LuisE duardo Ross MD at OR [facility] N/A: Spine Cervical KWADWO [id number] / / [id number] Alcutian Implanted:Qt y: 1 on 02/05/2020 by Luis Eduardo Ross MD at OR [facility] N/A: Spine Cervical KWADWO [id number] / / Description:alctuian cage 2.5cc Vitoss Bimodal Foam Pack Implanted:Qt y: 1 on 02/05/2020 by Luis Eduardo Ross MD at OR [facility] N/A: Spine Cervical KWADWO [id number] 11/29/[address] / [id number] / [id number] Rick Donnelly One - [id number] Implanted:Qt y: 1 on 08/31/2022 by [place] Perry MD at OR [facility] N/A: Vagina [employer] 08/10/2023 [id number] / / [id number] documented as of this encounter Advance Directives [...] and were consensually agreed upon. Care Teams Supply Chain Tech Relationship Specialty Start Date End Date Elida Lance DO PCP - General Family Medicine 11/03/19 documented as of this encounter
--- OUTSIDE RECORDS SUMMARY | 2024-06-26 12:53 | External Medical Summary | Summary of Care ---
Author Name Unknown Organization [facility] Address [address] [facility] [place] [address] Phone [phone] Care Team Providers Care Body Coverer Name Role Phone Elida Lance DO Primary Care Provider [phone] Encounter Details Date Type Department Care Team (Late st Contact Info) Description 03/17/2024 Population Health External Data Unspecified Department Allergies Active Allergy Reactions Criticality Noted Date Comments Nsaids 02/01/2020 Hx gastric bypass Other Allergy (See Comments) Rash Medium 013 Dermabond prineo Penicillins 10/04/1999 Rash, last dose was in her 20's Sulfa Antibiotics 10/04/1999 Rash in her early 20's documented as of this encounter (statuses as of 03/18/2024) Medications MULTIVITAMINS PO CAPS one daily Active [...] Tablet before bedtime. 60 Tablet 2 5 Active documented as of this encounter (statuses as of 03/18/2024) Active Problems Problem Noted Date Diagnosed Date Major depressive disorder, recurrent, in partial remission 12/27/2021 Generalized anxiety disorder 12/27/2021 S/P cervical spinal fusion 02/05/2020 DDD (degenerative disc disease), cervical 2017 Major depressive disorder, recurrent, moderate 0 06/14/2017 Memory changes 01/01/2017 Benign hypertension with CKD (chronic kidney disease) stage III 12/26/2016 Controlled substance agreement signed 04/08/2015 DDD (degenerative disc disease), lumbar 11/21/19 12 [place] Confirmation Research Other*[id number] 11/2009 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 B12 malabsorption s/p gastric bypass 07/14/2002 Allergic rhinitis 02/12/2002 Dyslipidemia, goal LDL below 130 12/04/2001 Chronic rhinitis HTN, goal below 140/90 Spinal stenosis, lumbar Spondylolisthesis documented as of this encounter (statuses as of 03/18/2024) Resolved Problems Problem Noted Date Diagnosed Date [...] as of this encounter (statuses as of 03/18/2024) Immunizations Name Administration Dates Next Due COVID-19 mRNA, LNP-s, No Pre serve, 2-Dose Series (IBN Media) 12/08/2020,11/17/2020 Pneumococcal Conjugate Vacc, 13 Valent (Prevnar) [...] Entry Date Author No 08/14/2013 3:36 PM RAKESHT Tarik Gold RN documented in this encounter Plan of Treatment Upcoming Encounters Date Type Department Care Team (Late st Contact Info) Description 03/24/2024 11:30 AM EST Office Visit Orthopaedics Spine Surgery, [place] [address] [place] [place] [address] Elham Gutierrez PA-C [address] [facility] [place] [place] [address] 03/27/2024 11:00 AM EST Telemedicine Psychology, [address] [address] Roly Miller, METAL TREATER [address] [place] [phone] 03/30/2024 1:30 PM EST Imaging Radiology [facility] [address] [place] [address] 04/02/2024 11:25 AM EST Office Visit Interventional Pain Center [facility] [address] [place] [address] Chris Rea, DO [address] [place] [address] 04/03/2024 12:10 PM EST [facility] [address] [place] [phone] Elida Lance, DO [address] [place] [address] 04/16/2024 2:00 PM EST Telemedicine Psychiatry, [place] [address] [place] [address] Brooke Deluca CRNP [address] [place] [address] 05/13/2024 1:00 PM EDT Telemedicine Nutrition Services [address] [place] [address] Jasvir Johnson, RDN [address] [place] [address] 10/07/2024 2:40 PM EDT Telemedicine Endocrinology [address] [place] [address] Daniel Franco MD [address] [place] [address] 10/15/2024 3:30 PM EDT Office Visit Neurology [facility] Isela Davidson [address] [place] [address] Mariya Harding PA-C [address] [place] [address] 02/03/2026 2:20 PM EST Office Visit Dermatology, [place] [address] [place] [address] Yessi Morton PA-C [address] [place] [address] [place] [address] Health Maintenance Due Date Last Done Comments Fecal Occult Blood Test 2006 Sigmoidoscopy 2006 Mammogram 08/09/2017 08/09/2016, 09/2015, 08/05/2014, Additional history exists Pneumococcal Vaccine: 50+ Years (3 of 3 - PCV20 or PCV21) 07/09/2021 07/09/2016, 08/21/2013 Colonoscopy 01/14/2022 01/15/2012, 01/15/2012 COVID-19 Vaccine (3 - season) 2023 12/08/2020, 11/17/2020 Influenza Vaccine (FLU shot) (#1) 2023 03/20/2023, 01/31/2022, 02/09/2021, Additional history exists Albumin/Creatinine Ratio 03/21/20242 024, 02/03/2019, 09/05/2017, Additional history exists GFR 04/19/2024 10/18/2023, 08/0 03/2023, 03/20/2023, Additional history exists CKD HGB USE SMARTSET 13846 10/02/202410/02, 08/14/2022, 03/16/2022, Additional history exists CKD PHOS USE SMARTSET 29396 10/17/2024 08/08/2023, 03/16/2022, 02/09/2021, Additional history exists Depression Monitoring 01/01/2025 01/02/2024, 10/24/2 024 Cologuard 04/04/2025 04/04/2022, 03/05, 03/27/2022 Colorectal [...] this encounter Medical Devices Implanted Type Area Compressor Engineer Device Identifier Shelf Expiration Date Model / Serial / Lot Graft Infuse Bone Sm [id number] - [id number] Implanted:Qt y: 1 on 02/22/2012 [place] [facility] [place]A: Spine Lumbar MEDTRONIC : NEUROLOGIC PAIN 08/01/2014 [id number] / / [id number] Screw 6x45 Poly Si [id number] - [id number] Implanted:Qt y: 2 on 02/22/2012 [place] [facility] [place]/A: Spine Lumbar JNJ : ETHICON CARDIOVATIONS [id number] / / Screw 7x35 Poly Si [id number] - [id number] Implanted:Qt y: 2 on 02/22/2012 at [place] [facility] [place]/A: Spine Lumbar JNJ : ETHICON CARDIOVATIONS [id number] / / Asif 5.5x55 Ti Prbnt [id number] - [id number] Implanted:Qt y: 2 on 02/22/2012 at [place] [facility] [place]/A: Spine Lumbar JNJ : DEPUY SPINE [id number] / / Screw Set Sng Inner [id number] - [id number] Implanted:Qt y: 4 on 02/22/2012 at [place] [facility] N/A: Spine Lumbar JNJ : DEPUY SPINE [id number] / / Cage 28x8 Leopard [id number] - [id number] Implanted:Qt y: 1 on 02/22/2012 at [place] [facility] N/A: Spine Lumbar JNJ : ETHICON CARDIOVATIONS [id number] / / Implant Brst Mod Cls Pro 360cc - [id number] Implanted:Qt y: 1 on 11/12/2012 at [place] [facility] Right: Breast MENTOR KRISSY 09/11/2017 [facility]-7360 / [id number] / [id number] Implant Brst Mod Cls Pro 360 - [id number] Implanted:Qt y: 1 on 11/12/2012 at [place] [facility] Left: Breast MENTOR KRISSY 08/12/2017 [facility]7360 / [id number] / [id number] 4.0 X 14 Variable Self Starting Screw Implanted:Qt y: 4 on 02/05/2020 by Luis Eduardo Ross MD at OR [facility] N/A: Spine Cervical KWADWO [id number] / / 1 Level 20mm [place] Plate Implanted:Qt y: 1 on 02/05/2020 by Luis Eduardo Ross MD at OR [facility] N/A: Spine Cervical KWADWO [id number] / / [id number] Alcutian Implanted:Qt y: 1 on 02/05/2020 by Luis Eduardo Ross MD at OR [facility] N/A: Spine Cervical KWADWO [id number] / / Description:alctuian cage 2.5cc Vitoss Bimodal Foam Pack Implanted:Qt y: 1 on 02/05/2020 by Luis Eduardo Ross MD at OR [facility] N/A: Spine Cervical KWADWO [id number] 11/29/2020 [id number] / [id number] / [id number] Rick Donnelly One - [id number] Implanted:Qt y: 1 on 08/31/2022 by Chico Perry MD at OR [facility] N/A: Vagina [employer] 08/10/2023 [id number] / / [id number] documented as of this encounter Advance Directives [...] and were consensually agreed upon. Care Teams Body Coverer Relationship Specialty Start Date End Date Elida Lance DO PCP - General Family Medicine 11/03/19 documented as of this encounter
--- OUTSIDE RECORDS SUMMARY | 2024-06-26 12:53 | External Medical Summary | Summary of Care ---
Author Name Unknown Organization [facility] Address [address] [facility] [place] [address] Phone [phone] Care Team Providers Care Automatic Thread Winder Name Role Phone Elida Lance DO Primary Care Provider [phone] Reason for Visit * Reason Comments Follow Up Anxiety Depression * - Authorized Specialty Diagnoses / Procedures Referred By Traci rizzo Referred To Contact Referral ID Status Reason Start Date Expiration Date V isits Requested Visits Authorized [id number] Authorized 11/03/2023 11/01/2024 999 999 Encounter Details Date Type Department Care Team (Late st Contact Info) Description 03/13/2024 1:30 PM EST [facility], [place] [address] [place] [address] Roly Miller, [facility] [address] [place] [address] Borderline personality disorder (HCC)* Allergies [...] DDD (degenerative disc disease), lumbar 11/21/19 12 [place] Confirmation Research Other*[id number] 11/2009 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 B12 malabsorption [...] hospital or clinic location. After connecting through [place], patient was verified with two unique identifiers. Patient (or authorized legal customer sales representative) was then informed that this was a Telemedicine visit and being conducted confidentially over secure lines. Methods to assure confidentiality were taken. Patient acknowledged consent and understanding of privacy and security of the Telemedicine visit. The patient agreed to participate. Start Time: 1:17 pm Stop Time: 1:58 pm Total direct time: 41 minutes BEHAVIORAL MEDICINE RETURN VISIT PROGRESS NOTE Psychology, [address] [facility] [address] 03/13/2024 1:17 PM TYPE OF VISIT: Individual DIAGNOSIS: Borderline personality disorder (HCC) (Primary) REASON FOR SESSION: Individual therapy Session #: 22 SESSION FOCUS: depression and anxiety NOTES: Therapist met with patient to complete an individual session. Patient processed depression and anxiety. Patient denied any SI/HI. Patient Patient denied any self-harm. Patient stated, "She had a couple of disappointments around Mayetta time". Patient stated, "I had mom guilt [...] not eating much, but is seeing the mash preparatory operator. Patient reported she is going to try [...] anxiety since the last session with this creative writer. Goal: Improved self-management of depression and [...] Professional Resources: 1. Local Crisis Services: For [place] [phone] [facility] 2. [facility] Division of Psychiatry: [phone] 3. [place] Suicide Prevention Lifeline: or 988 4. National Crisis Text Line: Text HOME to 205950 5. 911 or proceed to the nearest [...] ED, hotlines): Suicide and Crisis Lifeline - [facility] Crisis Contact [place] [phone] [facility], and Clinic number: [phone] and Suicide Safety Plan Signature Obtained on [...] clinical assessment: PHQ-9 Adult Data KATE-7 Data [place] Suicide Screen Data Discharge Discussed with patient: Patient continues to need treatment Collaboration of Care: Yes, provider within [facility], information is shared automatically in medical record Is this the patients' initial treatment plan? No FOLLOW-UP PLAN: Return: 2 weeks Appointment: 03/27/2024 at 11:00 am Action Plan: 1. Continue Cognitive Behavioral Therapy 2. Continue medication management with ANEUDY Maciel Treatment plan reviewed with the patient. Patient voices understanding and concurs with plan. PATIENT EDUCATION: Verbal & written Roly Miller [facility] Division of Psychiatry & Behavioral Medicine [facility] [phone] National Suicide Prevention Lifeline : 983 Crisis Textline : Text "HOME" to 300795 to connect with a crisis counselor Crisis Numbers by [facility]: [place] [facility] - Emergency Services [facility] (1-140-6-YOU CAN) resolve Crisis Network [facility] . The Open Door - Crisis Intervention [facility] Crisis Help-Line [place] [facility] - Crisis Intervention Services [facility] Service Access [employer] - Crisis Intervention [place] Choose option [address] [place] [address] of Freelance Graphic Designer Carline Lopez & Zeeshan Crisis Intervention [place] [facility] - Mental Health Crisis Anjana [facility] - Crisis Intervention [place] [facility] - Crisis Intervention Jonathan Whitehead [place] - Crisis Line Matthias [place] - Mental Health Crisis Hotline [facility] - Crisis Services [place] [facility] Crisis Center [place] Service Access [employer] - Crisis Intervention Krysten - Mental Health Crisis Intervention Services [place] [facility]ID Program Joshua Myers Snyder, [place] - Crisis System [place] [facility] Human [facility] - Crisis Hotline Staci (4-178-603-HELP) [facility] - Crisis Intervention [place] [facility] - Crisis Intervention [facility] - Crisis Services [place] [facility] Behavioral Health - Crisis Center [place] [phone] [facility] Crisis Hotline Radha (8:30 am-5:00 pm) OR (after 5:00 pm, weekends & holidays) Maldonado [facility] Crisis Intervention Program [place] [facility] - Mental Health Crisis Line Lamar, Alison and Sandra [place] [facility] Crisis Tunde & Brittni [facility] - Crisis Intervention [place] [facility] - Mental Health Crisis Service Bar[place] [facility] - Crisis Intervention [place] [facility] - Crisis Intervention Dahlgren & Ellis [facility] - Help Line [facility]/ID Program Keisha [facility] - Crisis Intervention [facility] - Crisis Intervention Cinebar [facility] Emergency Services, [facility] - Crisis Intervention [place] [facility] Behavior[facility] - Emergency Services [place] [facility] - Crisis Line [place] - DBHIDS - Suicide and Crisis Intervention Hotline [facility] - Crisis/ Emergency Services [place] [facility] - Emergency Contact Line [place] [facility] - Crisis Line Hardy ext. 1 [facility] Human Services [facility] Action - Crisis Intervention Hotline [place] [facility] Crisis Intervention Services documented in this encounter Plan of Treatment Upcoming Encounters Date Type Department Care Team (Late st Contact Info) Description 03/16/2024 2:30 PM EST Telemedicine Psychiatry, [place] [address] [place] [address] Brooke Deluca CRNP [address] [facility] [place] [address] 03/24/2024 11:30 AM EST Office Visit Orthopaedics Spine Surgery, [place] [address] [place] [address] Elham Gutierrez, JENNIFER [address] [place] [address] 03/27/2024 11:00 AM EST Telemedicine Psychology, [place] [address] [place] [address] Roly Miller LCSW [address] [place] [address] 03/30/2024 1:30 PM EST Imaging Radiology [facility] [address] [facility] [address] 04/02/2024 11:25 AM EST Office Visit Interventional Pain Center [facility] [address] [place] [phone] Chris Rea, DO [address] [place] [phone] 04/03/2024 12:10 PM EST Office Visit Family Practice, [place] [address] [facility] [place] [address] Elida Lance, DO [address] [facility] [place] [address] 05/13/2024 1:00 PM EDT Telemedicine Nutrition Services [address] [place] [address] Jasvir Johnson, RDN [facility] [place] [place] [address] 10/07/2024 2:40 PM EDT Telemedicine Endocrinology [address] [place] [address] Daniel Franco MD [address] [place] [address] 10/15/2024 3:30 PM EDT Office Visit [facility] [address] [place] [address] Mariya Harding PA-C [address] [place] [address] 02/03/2026 2:20 PM EST Office Visit Dermatology, [place] [address] [place] [address] Yessi Morton PA-C [address] [place] [address] [place] [address] Health Maintenance Due Date [...] Additional history exists CKD HGB USE SMARTSET 45501 10/02/202410/02, 08/14/2022, 03/16/2022, Additional history exists CKD PHOS USE SMARTSET 26996 10/17/202410/02, 03/16/2022, 02/09/2021, Additional history exists Depression [...] encounter Medical Devices Implanted Type Area Manager Economic Device Identifier Shelf Expiration Date Model / Serial / Lot Graft Infuse Bone Sm [id number] - [id number] Implanted:Qt y: 1 on 02/22/2012 at [place] [facility] N/A: Spine Lumbar MED[employer] : NEUROLOGIC PAIN 08/01/2014 [id number] / / [id number] Screw 6x45 Poly Si [id number] - [id number] Implanted:Qt y: 2 on 02/22/2012 at [place] [facility] N/A: Spine Lumbar JNJ : ETHICON CARDIOVATIONS [id number] / / Screw 7x35 Poly Si [id number] - [id number] Implanted:Qt y: 2 on 02/22/2012 at [place] [facility] N/A: Spine Lumbar JNJ : ETHICON CARDIOVATIONS [id number] / / Asif 5.5x55 Ti Prbnt [id number] - [id number] Implanted:Qt y: 2 on 02/22/2012 at OR [facility] N/A: Spine Lumbar JNJ : DEPUY SPINE [id number] / / Screw Set Sng Inner [id number] - [id number] Implanted:Qt y: 4 on 02/22/2012 at OR [facility] N/A: Spine Lumbar JNJ : DEPUY SPINE [id number] / / Cage 28x8 Leopard [id number] - [id number] Implanted:Qt y: 1 on 02/22/2012 at [place] [facility] N/A: Spine Lumbar JNJ : ETHICON CARDIOVATIONS [id number] / / Implant Brst Mod Cls Pro 360cc - [id number] Implanted:Qt y: 1 on 11/12/2012 at OR [facility] Right: Breast MENTOR KRISSY 09/11/2017 [id number] / [id number] / [id number] Implant Brst Mod Cls Pro 360cc - [id number] Implanted:Qt y: 1 on 11/12/2012 at OR [facility] Left: Breast MENTOR KRISSY 08/12/2017 [id number] / [id number] / [id number] 4.0 X 14 Variable Self Starting Screw Implanted:Qt y: 4 on 02/05/2020 by Luis Eduardo Ross MD at OR [facility] N/A: Spine Cervical KWADWO [id number] / / 1 Level 20mm [place] Plate Implanted:Qt y: 1 on 02/05/2020 by Luis Eduardo Ross MD at OR [facility] N/A: Spine Cervical KWADWO [id number] / / [id number] Alcutian Implanted:Qt y: 1 on 02/05/2020 by Luis Eduarod Ross MD at OR [facility] N/A: Spine Cervical KWADWO [id number] / / Description:alctuian cage 2.5cc Vitoss Bimodal Foam Pack Implanted:Qt y: 1 on 02/05/2020 by Luis Eduardo Ross MD at OR [facility] N/A: Spine Cervical KWADWO [id number] 11/29/2020 2042-5505 / [id number] / [id number] Sling Desara One - [id number] Implanted:Qt y: 1 on 08/31/2022 by Chico Perry MD at OR [facility] N/A: Vagina [employer] 08/10/2023 [id number] / / [id number] documented as of this encounter Visit Diagnoses [...] and were consensually agreed upon. Care Teams Automatic Thread Winder Relationship Specialty Start Date End Date Elida Lance DO PCP - General Family Medicine 11/03/19 documented as of this encounter
--- OUTSIDE RECORDS SUMMARY | 2024-06-26 12:53 | External Medical Summary | Summary of Care ---
Author Name Unknown Organization [facility] Address [address] [facility] [place] [address] Phone [phone] Care Team Providers Care Director Of Early Childhood Education Name Role Phone Elida Lance DO Primary Care Provider Reason for Visit * - Authorized Specialty Diagnoses / Procedures Referred By Traci rizzo Referred To Contact Referral ID Status Reason Start Date Expiration Date V isits Requested Visits Authorized [id number] Authorized 11/03/2023 11/01/2024 [id number] Encounter Details Date Type Department Care Team (Late st Contact Info) Description 03/16/2024 2:30 PM EST Telemedicine Psychiatry, [place] [address] [place] [address] Brooke Deluca CRNP [address] [place] [address] Major depressive disorder, recurrent episode, moderate (HCC)* Allergies Active Allergy Reactions Criticality Noted Date Comments Nsaids 02/01/2020 Hx gastric bypass Other Allergy (See Comments) Rash Medium 013 Dermabond prineo Penicillins 10/04/1999 Rash, last dose was in her 20's Sulfa Antibiotics 10/04/1999 Rash in her early 20's documented as of this encounter (statuses as of 03/17/2024) Medications MULTIVITAMINS PO CAPS one daily Active [...] mouth in the morning. 90 Tablet 1 03/12/19 25 Active buPROPion HCl 100 MG Oral Tablet (Wellbutrin) Take 1 Tablet by mouth in the morning and 1 Tablet before bedtime. 60 Tablet 2 03/16/19 25 Active buPROPion HCl ER (SR) 100 MG Oral Tablet Extended Release 12 Hour (Wellbutrin SR) Take 1 Tablet by mouth every evening. 30 Tablet 2 4 2:03 PM EST 01/08/20 24 025 Discontinued documented as of this encounter (statuses as of 03/17/2024) Active Problems Problem Noted Date Diagnosed Date [...] disease), lumbar 11/21/19 12 [facility] Confirmation Research Other*[id number] 06/11/2009 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 B12 malabsorption s/p gastric bypass 07/14/2002 Allergic rhinitis 02/12/2002 Dyslipidemia, goal LDL below 130 12/04/2001 Chronic rhinitis HTN, goal below 140/90 Spinal stenosis, lumbar Spondylolisthesis documented as of this encounter (statuses as of 03/17/2024) Resolved Problems Problem Noted Date Diagnosed Date [...] as of this encounter (statuses as of 03/17/2024) Immunizations Name Administration Dates Next Due COVID-19 mRNA, LNP-s, No Pre serve, 2-Dose Series (Mingly) 12/08/2020,11/17/2020 Pneumococcal Conjugate Vacc, 13 Valent (Prevnar) [...] Progress Notes * Brooke Deluca CRNP - 03/16/2024 2:35 PM EST OUTPATIENT PSYCHIATRY RETURN VISIT DIVISION OF PSYCHIATRY [address] [address] Name: Martha Lawson : 1960 Date and Time Patient was Seen: 03/16/2024 at 2:37 PM Patient location: HOME. I was not in a hospital or clinic location. After connecting through televideo, patient was verified with two unique identifiers. 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 Methods to assure confidentiality were taken. Patient acknowledged consent and understandingof privacy and security of the Telemedicine visit. The patient agreed to participate. Start Time: 2:30 pm Stop Time: 3:00 pm Physical Location of patient: Home CC: I have been feeling down INTERVAL HISTORY: Patient reports that she has been adherent with her medication and that she is not having any side effects She reports that she has been feeling increasingly depressed recently and feels that her mood is low, energy levels are low, struggling with lack of motivation and anhedonia. She is agreeable to increasing her Wellbutrin SR to 100 mg BID. . Pt denies current or recent active or passive suicidal ideation. Denies experiencing any current or recent AVH, paranoia, and no other delusions endorsed. No signs or symptoms suggesting the presence of terri or psychosis present on exam today. Describes sleep and appetite as WNL. Discussed risks and benefits of medications. Discussed how to contactCRNP if needed through My Chart. DX MDD, recurrent, severe KATE MEDICATIONS CONTINUE TrIntellix 20 mg QD CONTINUE Trazodone 150 mg QHS CONTINUE Ativan 0.5 mg QHS PRN for anxiety INCREASE Wellbutrin SR 100 mg BID [place]-SUICIDE SEVERITY [...] taking differently: Twice daily) 180 Tablet 2 Hair Skin & Nails Advanced Oral Tablet Take 1 Tablet by mouth daily. Calcium-Vitamin D-Minerals 600-400 MG-UNIT Oral Tablet Chewable [...] by mouth twice daily 180 Tablet 0 methylPREDNISolone 4 MG Oral Tablet Therapy Pack (Medrol Dosepack) follow package directions (Patient not taking: Reported on 01/09/2024) 21 Tablet 0 buPROPion HCl ER (SR) 100 MG Oral Tablet Extended Release 12 Hour (Wellbutrin SR) Take 1 Tablet by mouth every evening. 30 Tablet 2 traZODone HCl 150 MG Oral [...] mouth in the morning. 90 Tablet 1 No current facility-administered medications for this visit. [...] visit. Wt Readings from Last 3 Encounters: 10/16/23 62.2 kg (137 lb 1.6 oz) 09/18/23 61.2 kg (134 lb 14.4 oz) 09/13/23 61.8 kg (136 lb 4.8 oz) There is no height or weight [...] taking differently: Twice daily) 180 Tablet 2 Hair Skin & Nails Advanced Oral Tablet Take 1 Tablet by mouth daily. Calcium-Vitamin D-Minerals 600-400 MG-UNIT Oral Tablet Chewable [...] by mouth twice daily 180 Tablet 0 methylPREDNISolone 4 MG Oral Tablet Therapy Pack (Medrol Dosepack) follow package directions (Patient not taking: Reported on 01/09/2024) 21 Tablet 0 buPROPion HCl ER (SR) 100 MG Oral Tablet Extended Release 12 Hour (Wellbutrin SR) Take 1 Tablet by mouth every evening. 30 Tablet 2 traZODone HCl 150 MG Oral [...] mouth in the morning. 90 Tablet 1 No current facility-administered medications for this visit. Facility-Administered Medications Ordered in Other Visits Medication Dose Route Frequency Provider Last Rate Last Admin glycopyrrolate (ROBINUL) inj Once PRN Tj Rincon CORPORATE TREASURY ANALYST 0.6 mg at 02/22/12 1103 neostigmine methylsulfate (PROSTIGMIN) 1 MG/ML inj Once PRN Tj Rincon CORPORATE TREASURY ANALYST 3 mg at 02/22/12 1103 FAMILY HISTORY: Family History Problem Relation Name Age of Onset Other (ovarian ca[Other]) Mother Thyroid Disorder Mother Cancer Mother Barby Lawson Ovarian Ear Problems Mother Barby Mercadoe Thyroid Disorder Mother Barby Fye Allergies Mother Barby Fye Heart Disorder Father triple by pass Lung Disorder Father sleep apnea Glaucoma Father B. [place] Fye Heart Disorder Father B. [place] Fye Hypertension Father B. [place] Fye Other (barber siri[Other]) Brother bilateral hip replacement Heart Disorder Grandmother (Maternal) [place] Hypertension Grandmother (Maternal) [place] Arthritis Grandmother (Maternal) [place] Diabetes Grandmother (Maternal) [place] Heart Disorder Grandfather (Maternal) Bharath De Dios Hypertension Grandfather (Maternal) Bharath De Dios Cancer Grandmother (Paternal) [place] Fye Breast Heart Disorder Grandfather (Paternal) [place] Fye Hypertension Grandfather (Paternal) Go Fye Lung Disorder Grandfather (Paternal) Go Fye Black Lung Stroke Grandfather (Paternal) Go Fye Gastro-intestinal disorder Daughter reflux Ear Problems Daughter Lydnsey Rhodes Obesity Daughter Lyndsey Rhodes Gastro-intestinal disorder Daughter Delaney Rhodes Depression Daughter Delaney Rhodes Gastro-intestinal disorder Son reflux Diabetes Son Diabetes Son Rex Rhodes OCD Son Rex Rhodes Ear Problems Son [place] Buddy Rhodes Other (breast ca[Other]) Other Other (htn[Other]) [...] at the high risk obsity clinic in [facility] Pancreatitis Spinal stenosis, lumbar Spondylolisthesis SUMMARY OF/CHANGES TO PAST PSYCHIATRIC, MEDICAL, FAMILY, OR SOCIAL HISTORY: See interval history MEDICAL REVIEW OF SYSTEMS: Please see medical notes MENTAL STATUS EVALUATION: Appearance: casually dressed Muscle strength and tone: no abnormal involuntary movements noticeable Gait and Station: not assessed, patient seen via teleconference Behavior: cooperative Speech: normal, rate, tone and volume Mood: depressed Affect: type - dysthymic; range - full range; lability - no [...] medication management was spent on Billing code: [id number] and [id number] ANEUDY Maciel Psychiatrist, [facility] 03/16/2024 documented in this encounter Plan of Treatment Upcoming Encounters Date Type Department Care Team (Late st Contact Info) Description 03/24/2024 11:30 AM EST Office Visit Orthopaedics Spine Surgery, [place] [address] [place] [id number] Elham Gutierrez PA-C [address] [place] [address] 03/27/2024 11:00 AM EST Telemedicine Psychology, [place] [address] [place] [address] Roly Miller, [facility] [address] [place] [phone] 03/30/2024 1:30 PM EST Imaging Radiology [facility] [address] [place] [phone] 04/02/2024 11:25 AM EST Office Visit Interventional Pain Center [facility] [address] [place] [phone] Chris Rea, DO [address] [place] [phone] 04/03/2024 12:10 PM EST Office [facility] [address] [facility] [place] [phone] Elida Lance, DO [address] [facility] [place] [address] 04/16/2024 2:00 PM EST Telemedicine Psychiatry, [place] [address] [place] [address] Brooke Deluca CRNP [address] [place] [address] 05/13/2024 1:00 PM EDT Telemedicine Nutrition Services [place] [address] [place] [address] Jasvir Johnson, RDN [address] [place] [address] 10/07/2024 2:40 PM EDT Telemedicine Endocrinology [address] [place] [phone] Daniel Franco MD [address] [place] [address] 10/15/2024 3:30 PM EDT Office Visit Neurology [facility] [place] [address] [place] [address] Mariya Harding PA-C [address] [place] [address] 02/03/2026 2:20 PM EST Office Visit Dermatology, [place] [facility] [facility] [place] [phone] Yessi Morton PA-C [address] [place] [address] [place] [phone] Health Maintenance Due Date Last Done Comments [...] Additional history exists CKD HGB USE SMARTSET 10207 10/02/202410/02, 08/14/2022, 03/16/2022, Additional history exists CKD PHOS USE SMARTSET 16076 10/17/202410/02, 03/16/2022, 02/09/2021, Additional history exists Depression [...] this encounter Medical Devices Implanted Type Area Departmental Buyer Device Identifier Shelf Expiration Date Model / Serial / Lot Graft Infuse Bone Sm [id number] - [id number] Implanted:Qt y: 1 on 02/22/2012 at OR [facility] N/A: Spine Lumbar [employer] : NEUROLOGIC PAIN 08/01/2014 [id number] / / [id number] Screw 6x45 Poly Si [id number] - [id number] Implanted:Qt y: 2 on 02/22/2012 at OR [facility] N/A: Spine Lumbar JNJ : [employer] [id number] / / Screw 7x35 Poly Si [id number] - [id number] Implanted:Qt y: 2 on 02/22/2012 at OR [facility] N/A: Spine Lumbar JNJ : [employer] [id number] / / Asif 5.5x55 Ti Prbnt [id number] - [id number] Implanted:Qt y: 2 on 02/22/2012 at OR [facility] N/A: Spine Lumbar JNJ : DEPUY SPINE [id number] / / Screw Set Sng Inner [id number] - [id number] Implanted:Qt y: 4 on 02/22/2012 at OR [facility] N/A: Spine Lumbar JNJ : DEPUY SPINE [id number] / / Cage 28x8 Leopard [id number] - [id number] Implanted:Qt y: 1 on 02/22/2012 at OR [facility] N/A: Spine Lumbar JNJ : [employer]ON [employer] [id number] / / Implant Brst Mod Cls Pro 360cc - [id number] Implanted:Qt y: 1 on 11/12/2012 at OR [facility] Right: Breast MENTOR KRISSY 09/11/2017 [id number] / [id number] / [id number] Implant Brst Mod Cls Pro 360cc - [id number] Implanted:Qt y: 1 on 11/12/2012 at OR [facility] Left: Breast M[employer]OR KRISSY 08/12/2017 [id number] / [id number] / [id number] 4.0 X 14 Variable Self Starting Screw Implanted:Qt y: 4 on 02/05/2020 by Luis Eduardo Ross MD at OR [facility] N/A: Spine Cervical KWADWO [id number] / / 1 Level 20mm [place] Plate Implanted:Qt y: 1 on 02/05/2020 by Luis Eduardo Ross MD at OR [facility] N/A: Spine Cervical KWADWO [id number] / / [id number] Al[place]ian Implanted:Qt y: 1 on 02/05/2020 by Luis Eduardo Ross MD at OR [facility] N/A: Spine Cervical KWADWO [id number] / / Description:alctuian cage 2.5cc Vitoss Bimodal Foam Pack Implanted:Qt y: 1 on 02/05/2020 by Luis Eduardo Ross MD at OR [facility] N/A: Spine Cervical KWADWO [id number] 11/29/2020 [id number] / [id number] / [id number] Sling [place] One - [id number] Implanted:Qt y: 1 on 08/31/2022 by Chico Perry MD at OR [facility] N/A: Vagina [employer] 08/10/2023 [id number] / / [id number] documented as of this encounter Visit Diagnoses Diagnosis Major depressive disorder, recurrent episode, moderate (HCC)- Primary Major depressive disorder, recurrent episode, moderate documented in this encounter Advance Directives * [...] consensually agreed upon. Care Teams Director Of Early Childhood Education Relationship Specialty Start Date End Date Elida Lance DO PCP - General Family Medicine 11/03/19 documented as of this encounter
--- OUTSIDE RECORDS SUMMARY | 2024-06-26 12:53 | External Medical Summary | Summary of Care ---
Author Name Unknown Organization [facility] Address [address] [facility] [place] [address] Phone [phone] Care Team Providers Care Applications Administrator Name Role Phone Eliad Lance DO Primary Care Provider Reason for Visit * Reason Comments Follow Up Anxiety Depression * - Authorized Specialty Diagnoses / Procedures Referred By Traci rizzo Referred To Contact Referral ID Status Reason Start Date Expiration Date V isits Requested Visits Authorized [id number] Authorized 11/03/2023 11/01/2024 [id number] Encounter Details Date Type Department Care Team (Late st Contact Info) Description 03/13/2024 1:30 PM EST [facility], [place] [address] [place] [address] Roly Miller, [facility] [address] [place] [address] Borderline personality disorder (HCC)* Allergies Active Allergy Reactions Criticality Noted Date Comments Nsaids 02/01/2020 Hx gastric bypass Other Allergy (See Comments) Rash Medium 013 Dermabond prineo Penicillins 10/04/1999 Rash, last dose was in her 20's Sulfa Antibiotics 10/04/1999 Rash in her early 20's documented as of this encounter (statuses as of 03/16/2024) Medications MULTIVITAMINS PO CAPS one daily Active [...] as of this encounter (statuses as of 03/16/2024) Active Problems Problem Noted Date Diagnosed Date Major depressive disorder, recurrent, in partial remission 12/27/2021 Generalized anxiety disorder 12/27/2021 S/P cervical spinal fusion 02/05/2020 DDD (degenerative disc disease), cervical 2017 Major depressive disorder, recurrent, moderate 0 06/14/2017 Memory changes 01/01/2017 Benign hypertension with CKD (chronic kidney disease) stage III 12/26/2016 Controlled substance agreement signed 04/08/2015 DDD (degenerative disc disease), lumbar 11/21/19 12 [place] Confirmation Research Other*[id number] 11/2009 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 B12 malabsorption s/p gastric bypass 07/14/2002 Allergic rhinitis 02/12/2002 Dyslipidemia, goal LDL below 130 12/04/2001 Chronic rhinitis HTN, goal below 140/90 Spinal stenosis, lumbar Spondylolisthesis documented as of this encounter (statuses as of 03/16/2024) Resolved Problems Problem Noted Date Diagnosed Date [...] as of this encounter (statuses as of 03/16/2024) Immunizations Name Administration Dates Next Due COVID-19 [...] No 10/23/2023 Does the household have a acoma-canoncito-laguna service unitlar source of income? (Household - for ages [...] hospital or clinic location. After connecting through [employer], patient was verified with two unique identifiers. 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 Methods to assure confidentiality were taken. Patient acknowledged consent and understanding of privacy and security of the Telemedicine visit. The patient agreed to participate. Start Time: 1:17 pm Stop Time: 1:58 pm Total direct time: 41 minutes BEHAVIORAL MEDICINE RETURN VISIT PROGRESS NOTE Psychology, Sonia Nicole [address] [place] [address] [place] [address] 03/13/2024 1:17 PM TYPE OF VISIT: Individual DIAGNOSIS: Borderline personality disorder (HCC) (Primary) REASON FOR SESSION: Individual therapy Session #: 22 SESSION FOCUS: depression and anxiety NOTES: Therapist met with patient to complete an individual session. Patient processed depression and anxiety. Patient denied any SI/HI. Patient Patient denied any self-harm. Patient stated, "She had a couple of disappointments around [place] time". Patient stated, "I had mom guilt [...] not eating much, but is seeing the software engineer advisor. Patient reported she is going to try [...] Professional Resources: 1. Local Crisis Services: For [place] [phone] [facility] 2. [facility] Division of Psychiatry: [phone] 3. [place] Suicide Prevention Lifeline: or 988 4. National Crisis Text Line: Text HOME to 054983 5. 911 or proceed to the nearest [...] ED, hotlines): Suicide and Crisis Lifeline - 988[facility] Crisis Contact [place] [address]-800-643-5432 [facility], and Clinic number: [phone] and Suicide Safety Plan Signature Obtained on [...] clinical assessment: PHQ-9 Adult Data KATE-7 Data [place] Suicide Screen Data Discharge Discussed with patient: Patient continues to need treatment Collaboration of Care: Yes, provider within [facility], information is shared automatically in medical record Is this the patients' initial treatment plan? No FOLLOW-UP PLAN: Return: 2 weeks Appointment: 03/27/2024 at 11:00 am Action Plan: 1. Continue Cognitive Behavioral Therapy 2. Continue medication management with ANEUDY Maciel Treatment plan reviewed with the patient. Patient voices understanding and concurs with plan. PATIENT EDUCATION: Verbal & written Roly Miller [facility] Division of Psychiatry & Behavioral Medicine [facility] [phone] National Suicide Prevention Lifeline : 988 Crisis Textline : Text "HOME" to 050718 to connect with a crisis counselor Crisis Numbers by [facility]: [place] [facility] - Emergency Services [facility] (9-266-7-YOU CAN) resolve Crisis Network [facility] . The Open Door - Crisis Intervention Clive [facility] Crisis Help-Line [place] & Nowata [facility] - Crisis Intervention Services [facility] Service Access [employer] - Crisis Intervention [place] Choose option [address] [place] [address] of Shell Fisherman Carline Lopez & Zeeshan Crisis Intervention [facility] - Mental Health Crisis Anjana [facility] - Crisis Intervention [place] [facility] - Crisis Intervention Jonathan Whitehead [place] - Crisis Line Matthias Montes [place] - Mental Health Crisis Hotline [facility] - Crisis Services [place] [facility] Center [place] Service Access [employer] - Crisis Intervention Krysten - Mental Health Crisis Intervention Services Jellico [facility] MH/ID Program Joshua Myers Snyder, [place] - Crisis System Cord [facility] Human [facility] - Crisis Hotline Staci (1-347-171-HELP) [facility] - Crisis Intervention [place] - Crisis Intervention [facility] - Crisis Services Toni [facility] Behavioral Health - Crisis Center [place] [phone] [facility] Crisis Hotline Radha (8:30 am-5:00 pm) OR (after 5:00 pm, weekends & holidays) Maldonado [facility] Crisis Intervention Program [place] [facility] - Mental Health Crisis Line Lamar, Alison and Sandra [facility] Crisis Tunde & Brittni [facility] - Crisis Intervention [place] [facility] - Mental Health Crisis Service [facility] - Crisis Intervention [facility] - Crisis Intervention Nance & [place] [facility] - Help Line [facility] MH/ID Program Keisha [facility] - Crisis Intervention [place] [facility] - Crisis Intervention [place] [facility] Emergency Services, [facility] - Crisis Intervention [place] [facility] Behavioral Health - Emergency Services [place] [facility] - Crisis Line [place] - DBHIDS - Suicide and Crisis Intervention Hotline [facility] - Crisis/ Emergency Services Se[place] [facility] - Emergency Contact Line [place] [facility] - Crisis Line Hardy ext. 1 [facility] Human Services [facility] Action - Crisis Intervention Hotline [place] [facility] Crisis Intervention Services documented in this encounter Plan of Treatment Upcoming Encounters Date Type Department Care Team (Late st Contact Info) Description 03/16/2024 2:30 PM EST Telemedicine Psychiatry, [place] [address] [facility] [place] [address] Brooke Deluca CRNP [address] [facility] [place] [id number] 03/24/2024 11:30 AM EST Office Visit Orthopaedics Spine Surgery, [place] [address] [place] [phone] Elham Gutierrez, JENNIFER [address] [place] [address] 03/27/2024 11:00 AM EST Telemedicine Psychology, [place] [address] [place] [phone] Roly Miller LCSW [address] [facility] [place] [address] 03/30/2024 1:30 PM EST Imaging Radiology [facility] [address] [facility] [place] [phone] 04/02/2024 11:25 AM EST Office Visit Interventional Pain Center [facility] [address] [place] [phone] Chris Rea, DO [address] [place] [phone] 04/03/2024 12:10 PM EST Office Visit Family Practice, [place] [address] [facility] [address] [place] [phone] Elida Lance, DO [address] [facility] [place] [address] 05/13/2024 1:00 PM EDT Telemedicine Nutrition Services [address] [place] [address] Jasvir Johnson, RDN [facility] [place] [address] 10/07/2024 2:40 PM EDT Telemedicine Endocrinology [address] [place] [address] Daniel Franco MD [address] [place] [address] 10/15/2024 3:30 PM EDT Office Visit Neurology [facility] [address] [facility] [place] [address] Mariya Harding PA-C [address] [place] [address] 02/03/2026 2:20 PM EST Office Visit Dermatology, Royal Tony [address] [place] [phone] Yessi Morton PA-C [address] [place] [address] [place] [address] Health Maintenance Due Date [...] Additional history exists CKD HGB USE SMARTSET 08661 10/02/202410/02, 08/14/2022, 03/16/2022, Additional history exists CKD PHOS USE SMARTSET 37820 10/17/202410/02, 03/16/2022, 02/09/2021, Additional history exists Depression [...] this encounter Medical Devices Implanted Type Area Biofuels Technology Manager Device Identifier Shelf Expiration Date Model / Serial / Lot Graft Infuse Bone Sm [id number] - [id number] Implanted:Qt y: 1 on 02/22/2012 [place] [facility]A: Spine Lumbar [employer] : NEUROLOGIC PAIN 08/01/2014 [id number] / / [id number] Screw 6x45 Poly Si [id number] - [id number] Implanted:Qt y: 2 on 02/22/2012 at [place] [facility]/A: Spine Lumbar JNJ : ETH[employer]ON [employer] [id number] / / Screw 7x35 Poly Si [id number] - [id number] Implanted:Qt y: 2 on 02/22/2012 at [place] [facility]/A: Spine Lumbar JNJ : ETH[employer]ON [employer]ATIONS [id number] / / Asif 5.5x55 Ti Prbnt [id number] - [id number] Implanted:Qt y: 2 on 02/22/2012 at [place] [facility] N/A: Spine Lumbar JNJ : DEPUY SPINE [id number] / / Screw Set Sng Inner [id number] - [id number] Implanted:Qt y: 4 on 02/22/2012 at [place] [facility] N/A: Spine Lumbar JNJ : DEPUY SPINE [id number] / / Cage 28x8 Leopard [id number] - [id number] Implanted:Qt y: 1 on 02/22/2012 at [place] [facility] N/A: Spine Lumbar JNJ : ETH[employer]ON [employer]ARD[employer]ATIONS [id number] / / Implant Brst Mod Cls Pro 360cc - [id number] Implanted:Qt y: 1 on 11/12/2012 at [place] [facility] Right: Breast MENTOR KRISSY 09/11/2017 [id number] / [id number] / [id number] Implant Brst Mod Cls Pro 360cc - [id number] Implanted:Qt y: 1 on 11/12/2012 at [place] [facility] Left: Breast MENTOR KRISSY 08/12/2017 [id number] / [id number] / [id number] 4.0 X 14 Variable Self Starting Screw Implanted:Qt y: 4 on 02/05/2020 by Luis Eduardo Ross MD at OR [facility] N/A: Spine Cervical KWADWO [id number] / / 1 Level 20mm [place] Plate Implanted:Qt y: 1 on 02/05/2020 by Luis Eduardo Ross MD at OR [facility] N/A: Spine Cervical KWADWO [id number] / / [id number] Alcutian Implanted:Qt y: 1 on 02/05/2020 by Luis Eduardo Ross MD at OR [facility] N/A: Spine Cervical KWADWO [id number] / / Description:alctuian cage 2.5cc Vitoss Bimodal Foam Pack Implanted:Qt y: 1 on 02/05/2020 by Luis Eduardo Ross MD at OR [facility] N/A: Spine Cervical KWADWO [id number] 11/29/2020 [id number] / [id number] / [id number] Sling [facility] One - [id number] Implanted:Qt y: 1 on 08/31/2022 by Chico Perry MD at OR [facility] N/A: Vagina [employer] 08/10/2023 [id number] / / [id number] documented as of this encounter Visit Diagnoses [...] and were consensually agreed upon. Care Teams Applications Administrator Relationship Specialty Start Date End Date Elida Lance DO PCP - General Family Medicine 11/03/19 documented as of this encounter
--- OUTSIDE RECORDS SUMMARY | 2024-06-26 12:53 | External Medical Summary | Summary of Care ---
Author Name Unknown Organization [facility] Address [address] [facility] [place] [address] Phone [phone] Care Team Providers Care Manager Market Name Role Phone Elida Lance DO Primary Care Provider Reason for Visit * Reason Comments Follow Up Anxiety Depression * - Authorized Specialty Diagnoses / Procedures Referred By Traci rizzo Referred To Contact Referral ID Status Reason Start Date Expiration Date V isits Requested Visits Authorized [id number] Authorized 11/03/2023 11/01/2024 999 [id number] Encounter Details Date Type Department Care Team (Late st Contact Info) Description 03/13/2024 1:30 PM EST [facility] [place], [place] [address] [place] [address] Krzysztof Muniz, [facility] [address] [place] [address] Borderline personality disorder (HCC)* Allergies [...] DDD (degenerative disc disease), lumbar 11/21/19 12 [place] Confirmation Research Other*[id number] 06/0 11/2009 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 B12 [...] mRNA, LNP-s, No Pre serve, 2-Dose Series (Envoy) 12/08/2020,11/17/2020 Pneumococcal Conjugate Vacc, 13 Valent (Prevnar) [...] Assessment Author No 08/14/2013 3:36 PM Tarik Flores, RN * Do you have serious difficulty walking or climbing stairs? (5 years old or older) Answer Date of Assessment Author No 08/14/2013 3:36 PM EDT Tarik Gold, RN * Do you have difficulty dressing or bathing? (5 years old or older) Answer Date of Assessment Author No 08/14/2013 3:36 PM Tarik Flores, RN * Because of a physical, mental, or emotional condition, do you have difficulty doing errands alone such as visiting a doctor’s office or shopping? (15 years old or older) Answer Date of Assessment Author No 08/14/2013 3:36 PM Tarik Flores, RN documented as of this encounter Mental Status * Because of a physical, mental, or emotional condition, do you have serious difficulty concentrating, remembering, or making decisions? (5 years old or older) Answer Entry Date Author No 08/14/2013 3:36 PM EDT Tarik Gold RN documented in this encounter Progress Notes * Krzysztof Muniz, HEAD DOFFER - 03/13/2024 1:17 PM EST Images from the original note were not included. Patient location: HOME. I was not in a hospital or clinic location. After connecting through [employer], patient was verified with two unique identifiers. Patient (or authorized legal investment representative) was then informed that this was a Telemedicine visit and being conducted confidentially over secure lines. Methods to assure confidentiality were taken. Patient acknowledged consent and understanding of privacy and security of the Telemedicine visit. The patient agreed to participate. Start Time: 1:17 pm Stop Time: 1:58 pm Total direct time: 41 minutes BEHAVIORAL MEDICINE RETURN VISIT PROGRESS NOTE Psychology, [address] [address] 03/13/2024 1:17 PM TYPE OF VISIT: Individual [...] not eating much, but is seeing the email production specialist. Patient reported she is going to try [...] anxiety since the last session with this staff writer. Goal: Improved self-management of depression and [...] (KATE-7): 2 (Minimal 0-4) C-SSRS administered: Yes [place] Suicide Severity Rating Scale Results 03/27/2024 [place] SUICIDE SEVERITY RATING SCALE (C-SSRS) Have [...] No Level of Risk No Risk Identified Details More values are hidden. Newest values [...] Professional Resources: 1. Local Crisis Services: [facility] -Crisis Services 2. [facility] Division of Psychiatry: [phone] 3. National Suicide Prevention Lifeline: or 346 4. National Crisis Text Line: Text HOME to 787624 5. 911 or proceed to the nearest [...] ED, hotlines): Suicide and Crisis Lifeline - [facility] Crisis Contact [place] [facility] -Crisis Services, and Clinic number: [phone] and Suicide Safety Plan Signature Obtained on [...] clinical assessment: PHQ-9 Adult Data KATE-7 Data [place] Suicide Screen Data Discharge Discussed with patient: Patient continues to need treatment Collaboration of Care: Yes, provider within [facility], information is shared automatically in medical record Is this the patients' initial treatment plan? No FOLLOW-UP PLAN: Return: 2 weeks Appointment: 03/27/2024 at 11:00 am Action Plan: 1. Continue Cognitive Behavioral Therapy 2. Continue medication management with ANEUDY Maciel Treatment plan reviewed with the patient. Patient voices understanding and concurs with plan. PATIENT EDUCATION: Verbal & written Krzysztof Muniz LCSW Division of Psychiatry & Behavioral Medicine [facility] [phone] National Suicide Prevention Lifeline : 988 Crisis Textline : Text "HOME" to 952439 to connect with a crisis counselor Crisis Numbers by [facility]: [place] [facility] Services - Emergency Services [facility] (6-478-5-YOU CAN) resolve Crisis Network Guille & Fadumo . The Open Door - Crisis Intervention [place] [facility] Crisis Help-Line [place] & Commerce [facility] - Crisis Intervention Services [place] Service Access [employer], [employer]. - Crisis Intervention [place] Choose option [address] [place] [address] of Laser Operator LopezMarioGraham & Byers Crisis Intervention [place] [facility] - Mental Health Crisis [place] [facility] - Crisis Intervention [place] [facility] - Crisis Intervention Jonathan Whitehead [place] - Crisis Line Matthias [place] - Mental Health Crisis Hotline [place] [facility] - Crisis Services [place] [facility] Crisis Center [place] Service Access [employer], [employer]. - Crisis Intervention Krysten - Mental Health Crisis Intervention Services [place] [facility] MH/ID Program [place], [place], [place], [place] - Crisis System [place] [facility] - Crisis Hotline [place] & John (6-931-321-HELP) [facility] - Crisis Intervention [place] [facility] - Crisis Intervention Services [facility] - Crisis Services T[facility] Health - Crisis Center [place] [phone] [facility] - Crisis Hotline Radha (8:30 am-5:00 pm) OR (after 5:00 pm, weekends & holidays) [place] [facility] Crisis Intervention Program [facility] Mental Health Crisis Line [place], Alison and Sadnra [facility] Crisis [place] & Brittni [facility] - Crisis Intervention [place] [facility] - Mental Health Crisis Service [place] [facility] - Crisis Intervention [place] [facility] - Crisis Intervention [place] & Kallie [facility] - Help Line [facility] MH/ID Program [facility] - Crisis Intervention [place] [facility] - Crisis Intervention [place] [facility], [facility] - Crisis Intervention [place] [facility] Health - Emergency Services [place] [facility] - Crisis Line [place] - DBHIDS - Suicide and Crisis Intervention Hotline [facility] - Crisis/ Emergency Services [place] [facility] - Emergency Contact Line [place] [facility] - Crisis Line Hardy ext. [address] [facility] Services [facility] Action - Crisis Intervention Hotline [place] [facility] Crisis Intervention Services documented in this encounter Miscellaneous Notes * Addendum Note - Krzysztof Muniz LCSW - 03/27/2024 10:47 AM ESTAddended by: KRZYSZTOF MUNIZ on: 03/27/2024 10:47 AM Modules accepted: Level of Service documented in this encounter Plan of Treatment Upcoming Encounters Date Type Department Care Team (Late st Contact Info) Description 03/27/2024 11:00 AM EST Telemedicine Psychology, [place] [address] [facility] [place] [phone] Krzysztof Muniz LCSW [address] [facility] [place] [phone] Borderline personality disorder (HCC)* 03/30/2024 1:30 PM EST Imaging Radiology [facility] [address] [place] [phone] 03/31/2024 3:30 PM EST Imaging Radiology [facility] [address] [place] [address] 04/02/2024 11:25 AM EST Office Visit Interventional Pain Center [facility] [address] [place] [phone] Chris Rea, DO [address] [place] [phone] 04/03/2024 11:30 AM EST [facility] [address] [place] [phone] Elida Lance, DO [address] [place] [address] 04/16/2024 2:00 PM EST Telemedicine Psychiatry, [place] [address] [facility] [place] [address] Brooke Deluca CRNP [address] [facility] [place] [address] 05/13/2024 1:00 PM EDT Telemedicine Nutrition Services [place] [address] [place] [address] Jasvir Johnson, RDN [address] [place] [address] 10/07/2024 2:40 PM EDT Telemedicine Endocrinology [address] [place] [address] Daniel Franco MD [address] [place] [address] 10/15/2024 3:30 PM EDT Office Visit Neurology [facility] [place] [address] [place] [address] Mariya Harding PA-C [address] [place] [address] 02/03/2026 2:20 PM EST Office Visit Dermatology, [facility] [address] [facility] [phone] Yessi Morton PA-C [address] [place] [address] [place] [address] Health Maintenance Due Date Last Done Comments [...] Additional history exists CKD HGB USE SMARTSET 09145 10/02/202410/02, 08/14/2022, 03/16/2022, Additional history exists CKD PHOS USE SMARTSET 85352 10/17/202410/02, 03/16/2022, 02/09/2021, Additional history exists Depression [...] this encounter Medical Devices Implanted Type Area Bdr Device Identifier Shelf Expiration Date Model / Serial / Lot Graft Infuse Bone Sm [id number] - [id number] Implanted:Qt y: 1 on 02/22/2012 at [place] [facility] [place]/A: Spine Lumbar MEDTRONIC : NEUROLOGIC PAIN 08/01/2014 [id number] / / [id number] Screw 6x45 Poly Si [id number] - [id number] Implanted:Qt y: 2 on 02/22/2012 at [place] [facility] [place]/A: Spine Lumbar JNJ : ETHICON CARDIOVATIONS [id number] / / Screw 7x35 Poly Si [id number] - [id number] Implanted:Qt y: 2 on 02/22/2012 at [place] [facility] N/A: Spine Lumbar JNJ : ETHICON CARDIOVATIONS [id number] / / Asif 5.5x55 Ti Prbnt [id number] - [id number] Implanted:Qt y: 2 on 02/22/2012 at [place] [facility] N/A: Spine Lumbar JNJ : DEPUY SPINE [id number] / / Screw Set Sng Inner [id number] - [id number] Implanted:Qt y: 4 on 02/22/2012 at [place] [facility] N/A: Spine Lumbar JNJ : DEPUY SPINE [id number] / / Cage 28x8 Leopard [id number] - [id number] Implanted:Qt y: 1 on 02/22/2012 at [place] [facility] N/A: Spine Lumbar JNJ : ETHICON CARDIOVATIONS [id number] / / Implant Brst Mod Cls Pro 360cc - [id number] Implanted:Qt y: 1 on 11/12/2012 at [place] [facility] Right: Breast MENTOR KRISSY 09/11/2017 [id number] / [id number] / [id number] Implant Brst Mod Cls Pro 360cc - [id number] Implanted:Qt y: 1 on 11/12/2012 at [place] [facility] Left: Breast MENTOR RKISSY 08/12/2017 [id number] / [id number] / [id number] 4.0 X 14 Variable Self Starting Screw Implanted:Qt y: 4 on 02/05/2020 by Luis Eduardo Ross MD at OR [facility] N/A: Spine Cervical KWADWO [id number] / Level 20mm [place] View Plate Implanted:Qt y: 1 on 02/05/2020 by Luis Eduardo Ross MD at OR [facility] N/A: Spine Cervical KWADWO [id number] / / [id number] ree Alcutian Implanted:Qt y: 1 on 02/05/2020 by Luis Eduardo Ross MD at OR [facility] N/A: Spine Cervical KWADWO [id number] / / Description:alctuian cage 2.5cc Vitoss Bimodal Foam Pack Implanted:Qt y: 1 on 02/05/2020 by Luis Eduardo Ross MD at OR [facility] N/A: Spine Cervical KWADWO [id number] 11/29/2020 [id number] / [id number] / [id number] Sldina Donnelly One - [id number] Implanted:Qt y: 1 on 08/31/2022 by Chico Perry MD at [facility] N/A: Vagina [employer] 08/10/2023 [id number] / / [id number] documented as of this encounter Visit Diagnoses [...] and were consensually agreed upon. Care Teams Manager Market Relationship Specialty Start Date End Date Elida Lance DO PCP - General Family Medicine 11/03/19 documented as of this encounter
--- OUTSIDE RECORDS SUMMARY | 2024-06-26 12:54 | External Medical Summary | Summary of Care ---
Author Name Unknown Organization [facility] Address [address] [place] [address] Phone [phone] Care Team Providers Care Naval Science Teacher Name Role Phone Sheryl Lance DO Primary Care Provider Reason for Visit * Reason Comments Medication Refill Encounter Details Date Type Department Care Team (Late st Contact Info) Description 03/10/2024 Refill Psychiatry, [place] [address] [place] [address] Brooke Deluca CRNP [address] [place] [address] Allergies Active Allergy Reactions Criticality Noted Date Comments Nsaids 02/01/2020 Hx gastric bypass Other Allergy (See Comments) Rash Medium 013 Dermabond prineo Penicillins 10/04/1999 Rash, last dose was in her 20's Sulfa Antibiotics 10/04/1999 Rash in her early 20's documented as of this encounter (statuses as of 03/11/2024) Medications MULTIVITAMINS PO CAPS one daily Active [...] 3 01/02/2024 4:29 PM EDT 4 Active Trintellix 20 MG Oral Tablet (Vortioxetine HBr) Take 1 Tablet by mouth in the morning. 90 Tablet 1 12/16/2023 9:13 AM EDT 4 Active LORazepam 0.5 MG Oral [...] 3 03/02/2024 10:19 AM EST 4 Active documented as of this encounter (statuses as of 03/11/2024) Active Problems Problem Noted Date Diagnosed Date Major depressive disorder, recurrent, in partial remission 12/27/2021 Generalized anxiety disorder 12/27/2021 S/P cervical spinal fusion 02/05/2020 DDD (degenerative disc disease), cervical 2017 Major depressive disorder, recurrent, moderate 0 06/14/2017 Memory changes 01/01/2017 Benign hypertension with CKD (chronic kidney disease) stage III 12/26/2016 Controlled substance agreement signed 04/08/2015 DDD (degenerative disc disease), lumbar 11/21/19 12 [place] Confirmation Research Other*[id number] 06/11/2009 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 B12 malabsorption s/p gastric bypass 07/14/2002 Allergic rhinitis 02/12/2002 Dyslipidemia, goal LDL below 130 12/04/2001 Chronic rhinitis HTN, goal below 140/90 Spinal stenosis, lumbar Spondylolisthesis documented as of this encounter (statuses as of 03/11/2024) Resolved Problems Problem Noted Date Diagnosed Date [...] as of this encounter (statuses as of 03/11/2024) Immunizations Name Administration Dates Next Due COVID-19 [...] 3:36 PM RAKESHT Tarik Gold, ESPERANZA * Because of a physical, mental, or [...] Tarik Flores RN documented in this encounter Miscellaneous Notes * Telephone Encounter - Sheryl Lance DO - 03/11/2024 12:12 PM ESTRefused Prescriptions: Disp Refills Trintellix 20 MG Oral Tablet (Vortioxetine*90 Tab*1 Sig: Take 1 Tablet by mouth in the morning. Refused By: SHERYL ALNCE Reason for Refusal: Managed by another physician * Telephone Encounter - Alize Mendiola LPN - 03/11/2024 11:42 AM ESTPending Prescriptions: Disp Refills Trintellix 20 MG Oral Tablet (Vortioxetine*90 Tab*1 Sig: Take 1Tablet by mouth in the morning. documented in this encounter Plan of Treatment Upcoming Encounters Date Type Department Care Team (Late st Contact Info) Description 03/13/2024 1:30 PM EST Telemedicine Psychology, [address] [address] Roly Miller LCSW [address] [place] [address] 03/16/2024 2:30 PM EST Telemedicine Psychiatry, [address] [address] Brooke Deluca CRNP [address] [place] [address] 03/24/2024 11:30 AM EST Office Visit Orthopaedics Spine Surgery, [place] [address] [place] [address] Elham Gutierrez, PARosalia [address] [facility] [place] [address] 03/30/2024 1:30 PM EST Imaging Radiology [facility] [address] [place] [phone] 04/02/2024 11:25 AM EST Office Visit Interventional Pain Center [facility] [address] [place] [phone] Chris Rea, DO [address] [place] [phone] 04/03/2024 12:10 PM EST Office Visit [facility] [address] [place] [phone] Sheryl Lance, DO [address] [place] [address] 05/13/2024 1:00 PM EDT Telemedicine Nutrition Services [address] [place] [address] Jasvir Johnson, RDN [address] [place] [address] 10/07/2024 2:40 PM EDT Telemedicine Endocrinology [address] [place] [address] Daniel Franco MD [address] [place] [address] [address] 10/15/2024 3:30 PM EDT [facility] [address] [place] [address] Mariya Harding PA-C [address] [place] [address] 02/03/2026 2:20 PM EST Office Visit Dermatology, [address] [place] [address] Yessi Morton PA-C [address] [place] [address] [place] [address] Health Maintenance Due Date Last Done Comments Fecal Occult Blood Test 2006 Sigmoidoscopy 2006 Mammogram 08/09/2017 08/09/2016, 060 09/2015, 08/05/2014, Additional history exists Pneumococcal Vaccine: 50+ Years (3 of 3 - PCV20 or PCV21) 07/09/2021 07/09/2016, 08/21/2013 Colonoscopy 01/14/2022 01/15/2012, 01/15/2012 COVID-19 Vaccine ( - season) 2023 12/08/2020, 11/17/2020 Influenza Vaccine (FLU shot) (#1) 2023 03/20/2023, 01/31/2022, 02/09/2021, Additional history exists Albumin/Creatinine Ratio 03/21/2024 024, 02/03/2019, 09/05/2017, Additional history exists GFR 04/19/2024 10/18/2023, 0803/2023, 03/20/2023, Additional history exists CKD HGB USE SMARTSET 28303 10/02/202410/02, 08/14/2022, 03/16/2022, Additional history exists CKD PHOS USE SMARTSET 47540 10/17/2024 08/08/2023, 03/16/2022, 02/09/2021, Additional history exists [...] this encounter Medical Devices Implanted Type Area Snagger Device Identifier Shelf Expiration Date Model / Serial / Lot Graft Infuse Bone Sm [id number] - [id number] Implanted:Qt y: 1 on 02/22/2012 at [place] [facility] N/A: Spine Lumbar MEDTR[employer]IC : NEUROLOGIC PAIN 08/01/2014 [id number] / / [id number] Screw 6x45 Poly Si [id number] - [id number] Implanted:Qt y: 2 on 02/22/2012 at [place] [facility] N/A: Spine Lumbar JNJ : ETHICON CARDIOVATIONS [id number] / / Screw 7x35 Poly Si [id number] - [id number] Implanted:Qt y: 2 on 02/22/2012 at [place] [facility] N/A: Spine Lumbar JNJ : ETHICON CARDIOVATIONS [id number] / / Asif 5.5x55 Ti Prbnt [id number] - [id number] Implanted:Qt y: 2 on 02/22/2012 at [place] [facility] N/A: Spine Lumbar JNJ : DEPUY SPINE [id number] / / Screw Set Sng Inner [id number] - [id number] Implanted:Qt y: 4 on 02/22/2012 at [place] [facility] N/A: Spine Lumbar JNJ : DEPUY SPINE [id number] / / Cage 28x8 Leopard [id number] - [id number] Implanted:Qt y: 1 on 02/22/2012 at [place] [facility] N/A: Spine Lumbar JNJ : ETHICON CARDIOVATIONS [id number] / / Implant Brst Mod Cls Pro 360cc - [id number] Implanted:Qt y: 1 on 11/12/2012 at [place] [facility] Right: Breast MENTOR KRISSY 09/11/2017 350-7360 / [id number] / [id number] Implant Brst Mod Cls Pro 360cc - [id number] Implanted:Qt y: 1 on 11/12/2012 at [place] [facility] Left: Breast MENTOR KRISSY 08/12/2017 350-7360 / [id number] / [id number] 4.0 X 14 Variable Self Starting Screw Implanted:Qt y: 4 on 02/05/2020 by Luis Eduardo Ross MD at OR [facility] N/A: Spine Cervical KWADWO [id number] / / 1 Level 20mm [place] View Plate Implanted:Qt y: 1 on 02/05/2020 by Luis Eduardo Ross MD at OR [facility] N/A: Spine Cervical KWADOW [id number] / / [id number] Alcutian Implanted:Qt y: 1 on 02/05/2020 by Luis Eduardo Ross MD at OR [facility] N/A: Spine Cervical KWADWO [id number] / / Description:alctuian cage 2.5cc Vitoss Bimodal Foam Pack Implanted:Qt y: 1 on 02/05/2020 by Luis Eduardo Ross MD at OR [facility] N/A: Spine Cervical KWADWO [id number] 11/29/2020 [id number] / [id number] / [id number] Sling Desara One - [id number] Implanted:Qt y: 1 on 08/31/2022 by Ch[place] Perry MD at OR [facility] N/A: Vagina [employer] 08/10/2023 [id number] / / [id number] documented as of this encounter Advance Directives [...] and were consensually agreed upon. Care Teams Naval Science Teacher Relationship Specialty Start Date End Date Sheryl Lance DO PCP - General Family Medicine 11/03/19 documented as of this encounter
--- OUTSIDE RECORDS SUMMARY | 2024-06-26 12:54 | External Medical Summary | Summary of Care ---
Author Name Unknown Organization [facility] Address [address] [facility] [place] [address] Phone [phone] Care Team Providers Care Quality Control Expert Name Role Phone Elida Lance DO Primary Care Provider Encounter Details Date Type Department Care Team (Late st Contact Info) Description 03/05/2024 Patient Reported Data Patient Survey Ortho OBERD Allergies Active Allergy Reactions Criticality Noted Date Comments Nsaids 02/01/2020 Hx gastric bypass Other Allergy (See Comments) Rash Medium 013 Dermabond prineo Penicillins 10/04/1999 Rash, last dose was in her 20's Sulfa Antibiotics 10/04/1999 Rash in her early 20's documented as of this encounter (statuses as of 03/05/2024) Medications MULTIVITAMINS PO CAPS one daily Active [...] as of this encounter (statuses as of 03/05/2024) Active Problems Problem Noted Date Diagnosed Date Major depressive disorder, recurrent, in partial remission 12/27/2021 Generalized anxiety disorder 12/27/2021 S/P cervical spinal fusion 02/05/2020 DDD (degenerative disc disease), cervical 2017 Major depressive disorder, recurrent, moderate 0 06/14/2017 Memory changes 01/01/2017 Benign hypertension with CKD (chronic kidney disease) stage III 12/26/2016 Controlled substance agreement signed 04/08/2015 DDD (degenerative disc disease), lumbar 11/21/19 12 PRICE Confirmation Research Other*[id number] 06/11/2009 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 B12 malabsorption s/p gastric bypass 07/14/2002 Allergic rhinitis 02/12/2002 Dyslipidemia, goal LDL below 130 12/04/2001 Chronic rhinitis HTN, goal below 140/90 Spinal stenosis, lumbar Spondylolisthesis documented as of this encounter (statuses as of 03/05/2024) Resolved Problems Problem Noted Date Diagnosed Date [...] as of this encounter (statuses as of 03/05/2024) Immunizations Name Administration Dates Next Due COVID-19 mRNA, LNP-s, No Pre serve, 2-Dose Series (GoWorkaBit) 12/08/2020,11/17/2020 Pneumococcal Conjugate Vacc, 13 Valent (Prevnar) [...] Description 03/13/2024 1:30 PM EST Telemedicine Psychology, [address] [place] [address] Roly Miller, HEAD GOLF PROFESSIONAL [address] [place] [address] 03/16/2024 2:30 PM EST [address]medicine [address]ry, [address] [address] Brooke Deluca CRNP [address] [place] [address] 03/24/2024 11:30 AM EST Office Visit Orthopaedics Spine Surgery, [place] [address] [place] [phone] Elham Gutierrez, PARosalia [address] [place] [address] 03/30/2024 1:30 PM EST Imaging Radiology [facility] [address] [place] [address] 04/02/2024 11:25 AM EST Office Visit Interventional Pain Center [facility] [address] [place] [address] Chris Rea, DO [address] [place] [address] 04/03/2024 12:10 PM EST Office Visit [facility] [phone] Elida Lance, DO [address] [facility] [address] 10/07/2024 2:40 PM EDT Telemedicine Endocrinology [address] [place] [phone] Daniel Franco MD [address] [place] [address] 10/15/2024 3:30 PM EDT Office Visit Neurology [facility] [address] [place] [address] Mariya Harding PA-C [address] [place] [address] 02/03/2026 2:20 PM EST Office Visit Dermatology, [address] [place] [phone] Yessi Morton PA-C [address] [place] [address] [place] [address] Health Maintenance Due Date Last Done Comments [...] Additional history exists CKD HGB USE SMARTSET 68265 10/02/202410/02, 08/14/2022, 03/16/2022, Additional history exists CKD PHOS USE SMARTSET 96931 10/17/2024 08/1 08/2023, 03/16/2022, 02/09/2021, Additional history exists Depression Monitoring [...] this encounter Medical Devices Implanted Type Area [place] Vessel Pilot Device Identifier Shelf Expiration Date Model / Serial / Lot Graft Infuse Bone Sm [id number] - [id number] Implanted:Qt y: 1 on 02/22/2012 [place] [facility] [place]: Spine Lumbar [employer] : NEUROLOGIC PAIN 08/01/2014 [id number] / / [id number] Screw 6x45 Poly Si [id number] - [id number] Implanted:Qt y: 2 on 02/22/2012 [place] [facility] [place]: Spine Lumbar JNJ : [employer] [id number] / / Screw 7x35 Poly Si [id number] - [id number] Implanted:Qt y: 2 on 02/22/2012 [place] [facility] [place]A: Spine Lumbar JNJ : [employer]ON [employer] [id number] / / Asif 5.5x55 Ti Prbnt [id number] - [id number] Implanted:Qt y: 2 on 02/22/2012 at [place] [facility] [place]/A: Spine Lumbar JNJ : DEPUY SPINE [id number] / / Screw Set Sng Inner [id number] - [id number] Implanted:Qt y: 4 on 02/22/2012 at [place] [facility] [place]/A: Spine Lumbar JNJ : DEPUY SPINE [id number] / / Cage 28x8 Leopard [id number] - [id number] Implanted:Qt y: 1 on 02/22/2012 at [place] [facility] [place]/A: Spine Lumbar JNJ : ETH[employer]ON [employer] [id number] / / Implant Brst Mod Cls Pro 360cc - [id number] Implanted:Qt y: 1 on 11/12/2012 at [place] [facility] [place] Right: Breast MENTOR KRISSY 09/11/[address] [place] [address] / [id number] / [id number] Implant Brst Mod Cls Pro 360 - [id number] Implanted:Qt y: 1 on 11/12/2012 at [place] [facility] [place] Left: Breast MENTOR KRISSY 08/12/2017 [facility]7360 / [id number] / [id number] 4.0 X 14 Variable Self Starting Screw Implanted:Qt y: 4 on 02/05/2020 by Luis Eduardo Ross MD at OR [facility] N/A: Spine Cervical KWADWO [id number] / / 1 Level 20mm [place] View Plate Implanted:Qt y: 1 on 02/05/2020 by Luis Eduardo Ross MD at OR [facility] N/A: Spine Cervical KWADWO [id number] / / [id number] Alcutian Implanted:Qt y: 1 on 02/05/2020 by Luis Eduardo Ross MD at OR [facility] N/A: Spine Cervical KWADWO [id number] / / Description:alctuian cage 2.5cc Vitoss Bimodal Foam Pack Implanted:Qt y: 1 on 02/05/2020 by Luis Eduardo Ross MD at OR [facility] N/A: Spine Cervical KWADWO [id number] 11/29/2020 6046-3884 / [id number] / [id number] ing Andrzej One - [id number] Implanted:Qt y: 1 on 08/31/2022 by Chico Perry MD at OR [facility] N/A: Vagina [employer] 08/10/2023 [id number] / / [id number] documented as of this encounter Advance Directives [...] and were consensually agreed upon. Care Teams Quality Control Expert Relationship Specialty Start Date End Date Elida Lance DO PCP - General Family Medicine 11/03/19 documented as of this encounter
--- OUTSIDE RECORDS SUMMARY | 2024-06-26 12:54 | External Medical Summary | Summary of Care ---
Author Name Unknown Organization [facility] Address [address] [facility] [address] Phone [phone] Care Team Providers Care Associate Producer Name Role Phone Elida Lance DO Primary [...] disease), lumbar 11/21/19 12 [place] Confirmation Research Other*[id number] 06/11/2009 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 B12 malabsorption [...] mRNA, LNP-s, No Pre serve, 2-Dose Series (Pharminox) 12/08/2020,11/17/2020 Pneumococcal Conjugate Vacc, 13 Valent (Prevnar) [...] Description 03/13/2024 1:30 PM EST Telemedicine Psychology, [address] [place] [address] Roly Miller, BUILDING DRAFTER [address] [place] [address] 03/16/2024 2:30 PM EST Telemedicine Psychiatry, [address] [address] Brooke Deluca CRNP [address] [place] [address] 03/24/2024 11:30 AM EST Office Visit Orthopaedics Spine Surgery, [place] [address] [place] [phone] Elham Gutierrez, PARosalia [address] [place] [address] 03/30/2024 1:30 PM EST Imaging Radiology [facility] [address] [place] [phone] 04/02/2024 11:25 AM EST Office Visit Interventional Pain Center [facility] [address] [place] [phone] Chris Rea, DO [address] [place] [address] 04/03/2024 12:10 PM EST Office Visit [facility] [phone] Elida Lance, DO [address] [facility] [address] 10/07/2024 2:40 PM EDT Telemedicine Endocrinology [address] [place] [phone] Daniel Franco MD [address] [place] [address] 10/15/2024 3:30 PM EDT Office Visit Neurology [facility] [address] [place] [address] Mariya Harding PA-C [address] [place] [address] 02/03/2026 2:20 PM EST Office Visit Dermatology, [address] [place] [phone] Yessi Morton PA-C [address] [place] [address] [place] [address] Health Maintenance Due Date Last Done Comments [...] Additional history exists CKD HGB USE SMARTSET 38416 10/02/202410/02, 08/14/2022, 03/16/2022, Additional history exists CKD PHOS USE SMARTSET 86598 10/17/2024 08/1 08/2023, 03/16/2022, 02/09/2021, Additional history [...] this encounter Medical Devices Implanted Type Area [facility] Medicine Device Identifier Shelf Expiration Date Model / Serial / Lot Graft Infuse Bone Sm [id number] - [id number] Implanted:Qt y: 1 on 02/22/2012 at [place] [facility] [place] N/A: Spine Lumbar [employer] : NEUROLOGIC PAIN 08/01/2014 [id number] / / [id number] Screw 6x45 Poly Si [id number] - [id number] Implanted:Qt y: 2 on 02/22/2012 at OR [facility] [place] N/A: Spine Lumbar JNJ : [employer] [id number] / / Screw 7x35 Poly Si [id number] - [id number] Implanted:Qt y: 2 on 02/22/2012 at OR [facility] [place] N/A: Spine Lumbar JNJ : [employer] [id number] / / Asif 5.5x55 Ti Prbnt [id number] - [id number] Implanted:Qt y: 2 on 02/22/2012 at OR [facility] [place] N/A: Spine Lumbar JNJ : DEPUY SPINE [id number] / / Screw Set Sng Inner [id number] - [id number] Implanted:Qt y: 4 on 02/22/2012 at OR [facility] [place] N/A: Spine Lumbar JNJ : DEPUY SPINE [id number] / / Cage 28x8 Leopard [id number] - [id number] Implanted:Qt y: 1 on 02/22/2012 at OR [facility] [place] N/A: Spine Lumbar JNJ : [employer] [id number] / / Implant Brst Mod Cls Pro 360cc - [id number] Implanted:Qt y: 1 on 11/12/2012 at OR [facility] [place] Right: Breast [employer] KRISSY 09/11/[address] [place] [address] / [id number] / [id number] Implant Brst Mod Cls Pro 360 - [id number] Implanted:Qt y: 1 on 11/12/2012 at OR [facility] Left: Breast MENTOR KRISSY 08/12/2017 [facility]7360 / [id number] / [id number] 4.0 X 14 Variable Self Starting Screw Implanted:Qt y: 4 on 02/05/2020 by Luis Eduardo Ross MD at OR [facility] [place] N/A: Spine Cervical KWADWO [id number] / / 1 Level 20mm [place] View Plate Implanted:Qt y: 1 on 02/05/2020 by Luis Eduardo Ross MD at OR [facility] [place] N/A: Spine Cervical KWADWO [id number] / / [id number] Alcutian Implanted:Qt y: 1 on 02/05/2020 by Luis Eduardo Ross MD at OR [facility] [place] N/A: Spine Cervical KWADWO [id number] / / Description:alctuian cage 2.5cc Vitoss Bimodal Foam Pack Implanted:Qt y: 1 on 02/05/2020 by Luis Eduardo Ross MD at OR [facility] [place] N/A: Spine Cervical KWADWO [id number] 11/29/2020 7073-1845 / [id number] / [id number] ing Andrzej One - [id number] Implanted:Qt y: 1 on 08/31/2022 by Chico Perry MD at OR [facility] N/A: Vagina [employer] 08/10/2023 [id number] / / [id number] documented as of this encounter Advance Directives [...] and were consensually agreed upon. Care Teams Associate Producer Relationship Specialty Start Date End Date Elida Lance DO PCP - General Family Medicine 11/03/19 documented as of this encounter
--- OUTSIDE RECORDS SUMMARY | 2024-06-26 12:54 | External Medical Summary | Summary of Care ---
Author Name Unknown Organization [facility] Address [address] [facility] [place] [address] Phone [phone] Care Team Providers Care Print Washer Name Role Phone Elida Lance DO Primary Care Provider [phone] Reason for Visit * Reason Comments Medical Nutrition Therapy * Evaluate & Treat - Unlimited Visits (Within 10 days (routine)) - Authorized Specialty Diagnoses / Procedures Referred By Traci rizzo Referred To Contact Dietitian / Nutrition Services Diagnoses Intestinal postoperative nonabsorption Elida Lance DO [address] [place] [address] [place] [address] Phone: tel: fax: Referral ID Status Reason Start Date Expiration Date Visits Requested Visits Authorized [id number] Authorized Specialty Services Required 03/09/2024 [id number] Encounter Details Date Type Department Care Team (Late st Contact Info) Description 03/10/2024 3:30 PM EST Telemedicine Nutrition Services [place] [place] [address] Jasvir Johnson RDN [address] [place] [address] Postgastric surgery syndrome*; Appetite loss [R63.0 [...] as of this encounter (statuses as of 03/10/2024) Medications MULTIVITAMINS PO CAPS one daily Active [...] as of this encounter (statuses as of 03/10/2024) Active Problems Problem Noted Date Diagnosed Date [...] disease), lumbar 11/21/19 12 MEYER Confirmation Research Other*[id number] 11/2009 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 (Household - for [...] * Patient Instructions* Jasvir Johnson RDN - 03/10/2024 5:41 PM EST Choose higher calorie options for foods when available Keep frozen foods that are appealing in stock at all times Eat something small every 3-4 hours late morning-bedtime. documented in this encounter Progress Notes * Jasvir Johnson RDN - 03/10/2024 3:30 PM EST NUTRITION DISORDERED EATING ASSESSMENT INITIAL NUTRITION SERVICES ALVARADO Sheldon Patient location: HOME. I was not in a hospital or clinic location. After connecting through [employer], patient was verified with two unique identifiers. Patient (or authorized legal pharmaceutical specialty representative) was then informed that this was a Telemedicine visit and being conducted confidentially over secure lines. Methods to assure confidentiality were taken. Patient acknowledged consent and understanding of privacy and security of the Telemedicine visit. The patient agreed to participate. Reason for Referral: Intestinal postoperative nonabsorption Patient was identified by name and date. NUTRITION ASSESSMENT: Client History Patient has had an ongoing loss of [...] Has had neck surgery. Has spinal stenosis. Last ED RDN visit January 2023. 01/31/23 visit goals: Look at freezer section in grocery store for ideas of convenience foods to have on hand when you don't feel like cooking Continue meal plan eating every 3-4 hours something small [place] with eating something small (like cheese and crackers) in the morning before drinking coffee to see if it helps upset stomach Support System: Family Barriers to Learning: None Special Education Needs: None Physical Activity: Sedentary Is patient seeing a therapist? yes Prior Nutrition Counseling: Pito Dietitian What were you hoping I could help you with today? Still has diminished appetite. Reports that previous RDN in 2022 advised her to eat by when she feels hungry and eat what sounds good, no matter what it is. That worked for a long time, but she is now continually losing weight. She has had ongoing dry mouth (reports this started when taking Gabapentin in October 2023 but that has continued with d/c Gabapentin) that is unresponsive to lozenges, sprays and medications, affecting her sense of taste. Reports she is now 125lb on her home scale. She also reports occasional nausea that is sometimes short in duration. She takes anti nausea pills if itlasts longer. Has more constipation than diarrhea. IBS-C mentioned by general manager food. What would you change about your eating? Would like to have an appetite and not lose any more weight. What have you already tried changing? Has tried to eat what sounds good. Keeps a wipe off board in kitchen to write down foods that sound good to her so that she can make sure she has them in the house for when she feels like eating. How would you describe your relationship with food? Does not have food that is off limits and does not restrict or try to reduce intake. Food/Nutrition-Related History Describes typical diet history/24 hr recall Gets up between 8 and 9AM. Sometimes does not eat until the afternoon. Was never much of a breakfast eater. Foods that appeal to her at the moment and that she tries to keep in the house: Stauffers potato casserole StauffersSalisbury steak with macaroni and cheese Can eat scrambled eggs with cheese if she's hungry Grilled cheese Peanut butter Chicken noodle soup (craving has diminished for this but she keeps it around anyway) Believes she is drinking enough in the day (~4 16 oz cups) Froy cracker with peanut butter ~1:30 PM today Leftover potato casserole ~2PM today Lunch: chicken gravy and waffle yesterday. Has made it a couple of times in past few weeks. 4PM yesterday 1/2 grilled cheese sandwich and potato soup Snacks: Snacks rarely sound good. Dinner last night: Potato casserole, 1/2 grilled chicken sandwich Drinks: Coffee (half caf) with lebanese vanilla creamer, water, iced tea (decaf), Restaurant meals: caitlin Is planning on switching to whole milk for more calories. Has been having her coffee with cream andsugar. Reinforced keeping frozen foods on hand for easy meals as tolerated. Encouraged her to eat something small (part of a piece of fruit, a cracker, some cheese, cream and sugar in her coffee) every 3-4 hours when awake, and having easy to prepare/heat foods on hand to encourage appetite. Reviewed favorite foods that can be frozen in small quantities. AND High calorie recipe handouts provided via [employer]. Diet Recall/Food Logs Indicate: Inadequate calorie intake Adequate fluid intake Dysfunctional Eating Behaviors: Restriction: N/a Overeating/purging: N/a Other behaviors: Laxatives: none Diuretics: none Physical Activity: Sedentary. Limited due to back injury. Pertinent Medications (Current): Current Outpatient Medications Medication Sig Dispense Refill [...] tablet by mouth daily 45 Tablet 3 Trintellix 20 MG Oral Tablet (Vortioxetine HBr) Take 1 Tablet by mouth in the morning. 90 Tablet 1 LORazepam 0.5 MG Oral Tablet (Ativan) Take [...] mouth once a week. 12 Tablet 3 No current facility-administered medications for this visit. Facility-Administered Medications Ordered in Other Visits Medication Dose Route Frequency Provider Last Rate Last Admin glycopyrrolate (ROBINUL) inj Once PRN Tj Rincon CRNA 0.6 mg at 02/22/12 1103 neostigmine methylsulfate (PROSTIGMIN) 1 MG/ML inj Once PRN Tj Rincon CRNA 3 mg at 02/22/12 1103 Supplements: Calcium and Potassium Anthropometric Measurements LMP 03/18/2007 Wt Readings from Last 5 Encounters: 10/16/23 62.2 kg (137 lb 1.6 oz) 09/18/23 61.2 kg (134 lb 14.4 oz) 09/13/23 61.8 kg (136 lb 4.8 oz) 03/20/23 65.3 kg (144 lb) 11/21/22 62.6 kg (138 lb) Reports current home weight is 125lb, reflecting a ~12lb weight loss x 5 months BMI: BMI Readings from Last 1 Encounters: 10/16/23 25.90 kg/m² Nutrition-Focused Physical Findings Hair: thinning hair. Doesn't see it coming out though. Nails: ridges and brittle Body: difficulty regulating body temperature and no fluid retention Skin: dry and itchy Teeth: no recent changes. Waiting for dentures on bottom and top realignment. Mouth: dry/chapped and taste changes/no taste to food Throat: dry throat Heart: nothing noted Muscle: right foot up back of her leg numb from back surgery. Leg cramps. Hands cramp sometimes. Head: nothing noted Amenorrhea: no Biochemical Data, Medical Tests, and Procedures There are no biochemical abnormalities requiring a change in the nutrition plan of care. NUTRITION DIAGNOSIS Suboptimal energy intake Suboptimal oral intake Unintentional weight loss related to Poor meal distribution, Inadequate fiber intake, Inadequate fruit and vegetable intake, Significant sodium intake, Inadequate calorie intake, Inadequate protein intake as evidenced by Dietary Guidelines, Reported diet and/or activity recall, reported lack of appetite. NUTRITION INTERVENTION: NUTRITION EDUCATION Initial/brief nutrition education NUTRITION COUNSELING Strategies Nutrition Prescription: Diet: Good nutrition, Gastric Bypass Stage IV [facility]. Jeor: Current reported weight 57kg Daily Calorie Needs: 1300 Kcals Daily Protein Needs: .8-1.2g/kg=45-68 Grams protein Goals: Choose higher calorie options for foods when available Keep frozen foods that are appealing in stock at all times Eat something small every 3-4 hours late morning-bedtime. Dietitian Action: Encouraged intake of foods that appeal, keeping appealing foods on hand, increasing frequency of small intake to promote appetite.Recipes provided. Recommendations to Ordering Provider: Continue current plan of nutrition care. NUTRITION MONITORING AND EVALUATION: The following will be monitored and evaluated at the next visit: Monitor weight. Monitor labs. Monitor goals and progress. Plan: Patient scheduled to return in 2 months; dietitian phone # given for future reference. 3:31 PM-4:34 PM 60 minutes Medical Nutrition Therapy 15 min (8-22 min) 30 min (23-37 min) 45 min (38-52 min) 60 min (53-67 min) 75 min (68-82 min) 90 min (83-97 min) 105 min (98-113 min) Jasvir Johnson RDN documented in this encounter Plan of Treatment Upcoming Encounters Date Type Department Care Team (Late st Contact Info) Description 03/13/2024 1:30 PM EST Telemedicine Psychology, [place] [address] [place] [address] Roly Miller, HOUSE PARENT [address] [place] [phone] 03/16/2024 2:30 PM EST Telemedicine Psychiatry, [place] [address] [place] [address] Brooke Deluca CRNP [address] [place] [phone] 03/24/2024 11:30 AM EST Office Visit Orthopaedics Spine Surgery, [place] [address] [place] [address] Elham Gutierrez PA-C [address] [place], [place] [id number] 03/30/2024 1:30 PM EST Imaging [facility] [address] [place] [phone] 04/02/2024 11:25 AM EST Office Visit [facility] [address] [place] [phone] Chris Rea, DO [address] [place] [address] 04/03/2024 12:10 PM EST Office Visit Family [facility] [address] [facility] [phone] Elida Lance, DO [address] [facility] [address] 05/13/2024 1:00 PM EDT Telemedicine Nutrition Services [address] [place] [address] Jasvir Johnson, RDN [address] [place] [address] Rd [facility] [place] [phone] 10/07/2024 2:40 PM EDT Telemedicine Endocrinology [address] [place] [address] Daniel Franco MD [address] [place] [address] 10/15/2024 3:30 PM EDT Office Visit Neurology [facility] [place] [address] [facility] [place] [address] Mariya Harding PA-C [address] [place] [address] 02/03/2026 2:20 PM EST [facility] [address] [facility] [address] Yessi Morton PA-C [address] [place] [address] [place] [address] Scheduled Referrals Name Type Priority Associated Diagnoses Orde r Schedule NUTRITION-CLINICAL DIETITIAN REFERRAL OP Referral Within 10 days (routine) B12 malabsorption s/p gastric bypass Ordered: 03/09/2024 Health Maintenance Due Date Last Done Comments Fecal Occult Blood Test 2006 Sigmoidoscopy 2006 Mammogram 08/09/2017 08/09/2016, 0609/2015, 08/05/2014, Additional history exists Pneumococcal Vaccine: 50+ Years (3 of 3 - PCV20 or PCV21) 07/09/2021 07/09/2016, 08/21/2013 Colonoscopy 01/14/2022 01/15/2012, 01/15/2012 COVID-19 Vaccine (3 - season) 2023 12/08/2020, 11/17/2020 Influenza Vaccine (FLU shot) (#1) 2023 03/20/2023, 01/31/2022, 02/09/2021, Additional history exists Albumin/Creatinine Ratio 03/21/202403/21/ 024, 02/03/2019, 09/05/2017, Additional history exists GFR 04/19/2024 10/18/2023, 08/0 03/2023, 03/20/2023, Additional history exists CKD HGB USE SMARTSET 87948 10/02/202410/02, 08/14/2022, 03/16/2022, Additional history exists CKD PHOS USE SMARTSET 02526 10/17/2024 0808/2023, 03/16/2022, 02/09/2021, Additional history exists [...] this encounter Medical Devices Implanted Type Area Artificial Log Machine Operator Device Identifier Shelf Expiration Date Model / Serial / Lot Graft Infuse Bone Sm [id number] - [id number] Implanted:Qt y: 1 [place] [facility] [place] Spine Lumbar [employer] : NEUROLOGIC PAIN 08/01/2014 [id number] / / [id number] Screw 6x45 Poly Si [id number] - [id number] Implanted:Qt y: 2 on 02/22/2012 [place] [facility] [place]: Spine Lumbar JNJ : [employer] [id number] / / Screw 7x35 Poly Si [id number] - [id number] Implanted:Qt y: 2 on 02/22/2012 [place] [facility] [place]A: Spine Lumbar JNJ : ETH[employer]ON [employer]ATIONS [id number] / / Asif 5.5x55 Ti Prbnt [id number] - [id number] Implanted:Qt y: 2 on 02/22/2012 [place] [facility] [place]A: Spine Lumbar JNJ : DEPUY SPINE [id number] / / Screw Set Sng Inner [id number] - [id number] Implanted:Qt y: 4 on 02/22/2012 [place] [facility] [place]A: Spine Lumbar JNJ : DEPUY SPINE [id number] / / Cage 28x8 Leopard [id number] - [id number] Implanted:Qt y: 1 on 02/22/2012 [place] [facility] [place]A: Spine Lumbar JNJ : ETH[employer]ON [employer]ATIONS [id number] / / Implant Brst Mod Cls Pro 360cc - [id number] Implanted:Qt y: 1 on 11/12/2012 [place] [facility] [place] Right: Breast MENTOR KRISSY 09/11/2017 [id number] / [id number] / [id number] Implant Brst Mod Cls Pro 360cc - [id number] Implanted:Qt y: 1 on 11/12/2012 [place] [facility] [place] Left: Breast MENTOR KRISSY 08/12/2017 [id number] / [id number] / [id number] 4.0 X 14 Variable Self Starting Screw Implanted:Qt y: 4 on 02/05/2020 by Luis Eduardo Ross MD [facility] N/A: Spine Cervical KWADWO [id number] / / 1 Level 20mm [place] View Plate Implanted:Qt y: 1 on 02/05/2020 by Luis Eduardo Ross MD at [facility] N/A: Spine Cervical KWADWO [id number] / / [id number] Alcutian Implanted:Qt y: 1 on 02/05/2020 by Luis Eduardo Ross MD at OR [facility] N/A: Spine Cervical KWADWO [id number] / / Description:alctuian cage 2.5cc Vitoss Bimodal Foam Pack Implanted:Qt y: 1 on 02/05/2020 by Luis Eduardo Ross MD at OR [facility] N/A: Spine Cervical KWADWO [id number] 11/29/2020 2134-4169 / [id number] / [id number] Rick Wall - [id number] Implanted:Qt y: 1 on 08/31/2022 by Chico Perry MD at OR [facility] N/A: Vagina [employer] 08/10/2023 [id number] / / [id number] documented as of this encounter Visit Diagnoses Diagnosis Postgastric surgery syndrome- Primary Postgastric surgery syndromes Appetite loss [R63.0 (ICD-10-CM)] Anorexia Dietary counseling and surveillance Dietary surveillance and counseling Poor appetite Anorexia Intestinal postoperative nonabsorption Other and unspecified postsurgical nonabsorption documented in this encounter Advance Directives * [...] and were consensually agreed upon. Care Teams Print Washer Relationship Specialty Start Date End Date Elida Lance DO PCP - General Family Medicine 11/03/19 documented as of this encounter
--- OUTSIDE RECORDS SUMMARY | 2024-06-26 12:54 | External Medical Summary | Summary of Care ---
Author Name Unknown Organization [facility] Address [address] [facility] [place] [address] Phone [phone] Care Team Providers Care Tank House Operator Name Role Phone Elida Lance DO [...] DDD (degenerative disc disease), lumbar 11/21/19 12 NEVIS Confirmation Research Other*[id number] 06/11/2009 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 B12 malabsorption [...] mRNA, LNP-s, No Pre serve, 2-Dose Series ([employer]) 12/08/2020,11/17/2020 Pneumococcal Conjugate Vacc, 13 Valent (Prevnar) [...] Description 03/13/2024 1:30 PM EST Telemedicine Psychology, [address] [place] [address] Roly Miller, COMMODITIES TRADER [address] [place] [address] 03/16/2024 2:30 PM EST Telemedicine [address]iatry, [address] [address] Brooke Deluca CRNP [address] [place] [address] 03/24/2024 11:30 AM EST Office Visit Orthopaedics Spine Surgery, [place] [address] [place] [phone] Elham Gutierrez, PARosalia [address] [place] [address] 03/30/2024 1:30 PM EST Imaging Radiology [facility] [address] [place] [address] 04/02/2024 11:25 AM EST Office Visit Interventional Pain Center [facility] [address] [place] [address] Chris Rea, DO [address] [place] [address] 04/03/2024 12:10 PM EST Office Visit [facility] [address] [facility] [phone] Elida Lance, DO [address] [facility] [address] 10/07/2024 2:40 PM EDT Telemedicine Endocrinology [address] [place] [address] Daniel Franco MD [address] [place] [address] 10/15/2024 3:30 PM EDT Office Visit Neurology [facility] [address] [place] [address] Mariya Harding PA-C [address] [place] [address] 02/03/2026 2:20 PM EST Office Visit Dermatology, [address] [place] [address] Yessi Morton PA-C [address] [place] [address] [place] [address] Health Maintenance Due Date Last Done Comments [...] Additional history exists CKD HGB USE SMARTSET 76176 10/02/202410/02, 08/14/2022, 03/16/2022, Additional history exists CKD PHOS USE SMARTSET 94030 10/17/2024 08/1 08/2023, 03/16/2022, 02/09/2021, Additional history [...] this encounter Medical Devices Implanted Type Area Securities Underwriter Device Identifier Shelf Expiration Date Model / Serial / Lot Graft Infuse Bone Sm [id number] - [id number] Implanted:Qt y: 1 [place] [facility] [place] Spine Lumbar [employer] : NEUROLOGIC PAIN 08/01/2014 [id number] / / [id number] Screw 6x45 Poly Si [id number] - [id number] Implanted:Qt y: 2 [place] 02[place]22[place] [facility] [place]: Spine Lumbar JNJ : ETH[employer]ON [employer] [id number] / / Screw 7x35 Poly Si [id number] - [id number] Implanted:Qt y: 2 [place] 02[place]22[place] [facility] [place]: Spine Lumbar JNJ : ETH[employer]ON [employer]ATIONS [id number] / / Asif 5.5x55 Ti Prbnt [id number] - [id number] Implanted:Qt y: 2 [place] 02[place]22[place] [facility] [place]: Spine Lumbar JNJ : DEPUY SPINE [id number] / / Screw Set Sng Inner [id number] - [id number] Implanted:Qt y: 4 on 02/22/2012 [place] [facility] [place] Spine Lumbar JNJ : DEPUY SPINE [id number] / / Cage 28x8 Leopard [id number] - [id number] Implanted:Qt y: 1 [place] 02[place]22[place] [facility] [place]: Spine Lumbar JNJ : ETH[employer]ON C[employer]ATIONS [id number] / / Implant Brst Mod Cls Pro 360cc - [id number] Implanted:Qt y: 1 [place] 11/12/2012 [place] [facility] [place]: Breast MENTOR KRISSY 09/11/[address] [place] [address] / [id number] / [id number] Implant Brst Mod Cls Pro 360 - [id number] Implanted:Qt y: 1 [place] 11[place]12/[place] [facility] [place]: Breast MENTOR KRISSY 08/12/2017 [id number] / [id number] / [id number] 4.0 X 14 Variable Self Starting Screw Implanted:Qt y: 4 on 02/05/2020 by Luis Eduardo Ross MD at OR [facility] N/A: Spine Cervical KWADWO [id number] / / 1 Level 20mm [place] View Plate Implanted:Qt y: 1 on 02/05/2020 by Luis Eduardo Ross MD at OR [facility] N/A: Spine Cervical KWADWO [id number] / / [id number] Alcutian Implanted:Qt y: 1 on 02/05/2020 by Luis Eduardo Ross MD at OR [facility] N/A: Spine Cervical KWADWO [id number] / / Description:alctuian cage 2.5cc Vitoss Bimodal Foam Pack Implanted:Qt y: 1 on 02/05/2020 by Luis Eduardo Ross MD at OR [facility] N/A: Spine Cervical KWADWO [id number] 11/29/2020 5487-1501 / [id number] / [id number] ing Andrzej One - [id number] Implanted:Qt y: 1 on 08/31/2022 by Ch[place] Perry MD at OR [facility] N/A: Vagina [employer] 08/10/2023 [id number] / / [id number] documented as of this encounter Advance Directives [...] and were consensually agreed upon. Care Teams Tank House Operator Relationship Specialty Start Date End Date Elida Lance DO PCP - General Family Medicine 11/03/19 documented as of this encounter
--- OUTSIDE RECORDS SUMMARY | 2024-06-26 12:54 | External Medical Summary | Summary of Care ---
Author Name Unknown Organization [facility] Address [address] [facility] [place] [address] Phone [phone] Care Team Providers Care Instrument Repair Supervisor Name Role Phone Sheryl Lance DO Primary Care Provider [phone] Reason for Visit * Reason Comments Medication Refill Encounter Details Date Type Department Care Team (Late st Contact Info) Description 03/11/2024 Refill [facility] [address] [place] [address] Sheryl Lance DO [address] [place] [address] Allergies Active Allergy Reactions Criticality Noted Date Comments Nsaids 02/01/2020 Hx gastric bypass Other Allergy (See Comments) Rash Medium 013 Dermabond prineo Penicillins 10/04/1999 Rash, last dose was in her 20's Sulfa Antibiotics 10/04/1999 Rash in her early 20's documented as of this encounter (statuses as of 03/12/2024) Medications MULTIVITAMINS PO CAPS one daily Active [...] 45 Tablet 3 01/02/2024 4:29 PM EDT 07/10/19 24 Active LORazepam 0.5 MG Oral Tablet (Ativan) Take 1 Tablet by mouth as needed for Anxiety. 15 Tablet 2 07/19/2023 8:50 AM EDT 07/17/19 24 Active Primidone 50 MG Oral Tablet (Mysoline) Take one-half tablet by mouth twice daily 180 Tablet 12/20/2023 11:51 AM EDT 10/16/19 24 Active methylPREDNISolo ne 4 MG Oral Tablet Therapy Pack (Medrol Dosepack) follow package directions 21 Tablet 11/01/19 24 Active Additional Information Patient not taking.Reported on 01/09/2024 buPROPion HCl ER (SR) 100 MG Oral Tablet Extended Release 12 Hour (Wellbutrin SR) Take 1 Tablet by mouth every evening. 30 Tablet 2 01/09/2024 2:03 PM EST 01/08/20 24 Active traZODone HCl 150 MG Oral Tablet (Desyrel) Take 1 Tablet by mouth at bedtime. 90 Tablet 1 01/16/2024 6:22 PM EST 01/14/20 24 Active Metoprolol [...] morning. 90 Tablet 1 03/12/19 25 Active Trintellix 20 MG Oral Tablet (Vortioxetine HBr) Take 1 Tablet by mouth in the morning. 90 Tablet 1 12/16/2023 9:13 AM EDT 07/17/19 24 025 Discontin ued(Refil l) documented as of this encounter (statuses as of 03/12/2024) Active Problems Problem Noted Date Diagnosed Date Major depressive disorder, recurrent, in partial remission 12/27/2021 Generalized anxiety disorder 12/27/2021 S/P cervical spinal fusion 02/05/2020 DDD (degenerative disc disease), cervical 2017 Major depressive disorder, recurrent, moderate 0 06/14/2017 Memory changes 01/01/2017 Benign hypertension with CKD (chronic kidney disease) stage III 12/26/2016 Controlled substance agreement signed 04/08/2015 DDD (degenerative disc disease), lumbar 11/21/19 12 [employer] Confirmation Research Other*[id number] 11/2009 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 B12 malabsorption s/p gastric bypass 07/14/2002 Allergic rhinitis 02/12/2002 Dyslipidemia, goal LDL below 130 12/04/2001 Chronic rhinitis HTN, goal below 140/90 Spinal stenosis, lumbar Spondylolisthesis documented as of this encounter (statuses as of 03/12/2024) Resolved Problems Problem Noted Date Diagnosed Date [...] as of this encounter (statuses as of 03/12/2024) Immunizations Name Administration Dates Next Due COVID-19 [...] Date Author No 08/14/2013 3:36 PM EDT Asif, Ma luis, RN documented in this encounter Miscellaneous Notes * Telephone Encounter - Sheryl Lance DO - 03/12/2024 8:12 AM ESTSigned Prescriptions: Disp Refills Trintellix 20 MG Oral Tablet (Vortioxetine*90 Tab*1 Sig: Take 1 Tablet by mouth in the morning. Authorizing Provider: SHERYL LANCE * Telephone Encounter - Sheryl Lance DO - 03/12/2024 8:12 AM ESTSigned Prescriptions: Disp Refills Trintellix 20 MG Oral Tablet (Vortioxetine*90 Tab*1 Sig: Take 1 Tablet by mouth in the morning. Authorizing Provider: SHERYL LANCE * Telephone Encounter - Ita Stafford CPhT - 03/11/2024 2:56 PM EST Pharmacy calling to request a refill on trintellix. Medication was last prescribed by Dr Deluca but patient is asking if PCP can take over the medication. Please advise if this is appropriate and send to [facility] if agreeable. Thank you, Ita Stafford CphT Shoe [employer] 03/11/24 documented in this encounter Plan of Treatment Upcoming Encounters Date Type Department Care Team (Late st Contact Info) Description 03/13/2024 1:30 PM EST Telemedicine Psychology, [place] [address] [place] [phone] Roly Miller LCSW [address] [place] [phone] 03/16/2024 2:30 PM EST Telemedicine Psychiatry, [place] [address] [place] [address] Brooke Deluca CRNP [address] [place] [address] 03/24/2024 11:30 AM EST Office Visit Orthopaedics Spine Surgery, [place] [address] [place] [phone] Elham Gutierrez PA-C [address] [employer], [place] [phone] 03/30/2024 1:30 PM EST Imaging Radiology [facility] [address] [place] [phone] 04/02/2024 11:25 AM EST Office Visit Interventional Pain Center [facility] [address] [place] [address] Chris Rea, DO [address] [place] [address] 04/03/2024 12:10 PM EST Office Visit [facility] [address] [facility] [place] [phone] Sheryl Lance, DO [address] [facility] [place] [address] 05/13/2024 1:00 PM EDT Telemedicine Nutrition Services [address] [place] [address] Jasvir Johnson, RDN [address] [facility] [address] 10/07/2024 2:40 PM EDT Telemedicine Endocrinology [address] [place] [address] Daniel Franco MD [address] [place] [address] 10/15/2024 3:30 PM EDT [facility] [place] [address] [facility] [place] [address] Mariya Harding PA-C [address] [place] [id number] 02/03/2026 2:20 PM EST Office Visit Dermatology, [address] [facility] [place] [address] Yessi Morton PA-C [address] [place] [address] [place] [address] Health Maintenance Due Date [...] Additional history exists CKD HGB USE SMARTSET 26252 10/02/202410/02, 08/14/2022, 03/16/2022, Additional history exists CKD PHOS USE SMARTSET 35549 10/17/2024 08/1 08/2023, 03/16/2022, 02/09/2021, Additional history [...] this encounter Medical Devices Implanted Type Area Steam Heating Installer Device Identifier Shelf Expiration Date Model / Serial / Lot Graft Infuse Bone Sm [id number] - [id number] Implanted:Qt y: 1 [place] [facility] Spine Lumbar MEDTRONIC : NEUROLOGIC PAIN 08/01/2014 [id number] / / [id number] Screw 6x45 Poly Si [id number] - [id number] Implanted:Qt y: 2 on 02/22/2012 [place] [facility] [place]: Spine Lumbar JNJ : ETHICON CARDIOVATIONS [id number] / / Screw 7x35 Poly Si [id number] - [id number] Implanted:Qt y: 2 on 02/22/2012 [place] [facility]: Spine Lumbar JNJ : ETHICON CARDIOVATIONS [id number] / / Asif 5.5x55 Ti Prbnt [id number] - [id number] Implanted:Qt y: 2 on 02/22/2012 [place] [facility]: Spine Lumbar JNJ : DEPUY SPINE [id number] / / Screw Set Sng Inner [id number] - [id number] Implanted:Qt y: 4 on 02/22/2012 [place] [facility]: Spine Lumbar JNJ : DEPUY SPINE [id number] / / Cage 28x8 Leopard [id number] - [id number] Implanted:Qt y: 1 on 02/22/2012 [place] [facility]A: Spine Lumbar JNJ : ETHICON CARDIOVATIONS [id number] / / Implant Brst Mod Cls Pro 360cc - [id number] Implanted:Qt y: 1 on 11/12/2012 [place] [facility] Right: Breast MENTOR KRISSY 09/11/2017 350-7360 / [id number] / [id number] Implant Brst Mod Cls Pro 360cc - [id number] Implanted:Qt y: 1 on 11/12/2012 [place] [facility] Left: Breast MENTOR KRISSY 08/12/2017 350-7360 / [id number] / [id number] 4.0 X 14 Variable Self Starting Screw Implanted:Qt y: 4 on 02/05/2020 by Luis Eduardo Ross MD at OR [facility] N/A: Spine Cervical KWADWO [id number] / / 1 Level 20mm [place] View Plate Implanted:Qt y: 1 on 02/05/2020 by Luis Eduardo Ross MD at OR [facility] N/A: Spine Cervical KWADWO [id number] / / [id number] ree Alcutian Implanted:Qt y: 1 on 02/05/2020 by Luis Eduardo Ross MD at OR [facility] N/A: Spine Cervical KWADWO [id number] / / Description:alctuian cage 2.5cc Vitoss Bimodal Foam Pack Implanted:Qt y: 1 on 02/05/2020 by Luis Eduardo Ross MD at OR [facility] N/A: Spine Cervical KWADWO [id number] 11/29/2020 1708-4211 / [id number] / [id number] Rick Wall - [id number] Implanted:Qt y: 1 on 08/31/2022 by Chico Perry MD at OR [facility] N/A: Vagina [employer] 08/10/2023 [id number]-[id number] / / [id number] documented as of this encounter Advance Directives [...] 5:03 PM 11/13/2012 2:31 PM This order reflects the patients wishes and were consensually agreed upon. Care Teams Instrument Repair Supervisor Relationship Specialty Start Date End Date Sheryl Lance DO PCP - General Family Medicine 11/03/19 documented as of this encounter
--- OUTSIDE RECORDS SUMMARY | 2024-06-26 12:54 | External Medical Summary | Summary of Care ---
Author Name Unknown Organization [facility] Address [address] [facility] [place] [address] Phone [phone] Care Team Providers Care Fiberglass Boat Builder Name Role Phone Elida Lance DO Primary Care Provider Encounter Details Date Type Department Care Team (Late st Contact Info) Description 03/05/2024 Population Health External Data Unspecified Department Allergies [...] DDD (degenerative disc disease), lumbar 11/21/19 12 [place] Confirmation Research Other*[id number] 06/0 11/2009 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 B12 [...] mRNA, LNP-s, No Pre serve, 2-Dose Series (EndorphMe) 12/08/2020,11/17/2020 Pneumococcal Conjugate Vacc, 13 Valent (Prevnar) [...] Entry Date Author No 08/14/2013 3:36 PM EDTarik Acuna RN documented in this encounter Plan of Treatment Upcoming Encounters Date Type Department Care Team (Late st Contact Info) Description 03/10/2024 3:30 PM EST Telemedicine Nutrition Services [address] [place] [address] Jasvir Johnson, RDN [address] [facility] [address] [place] [phone] 03/13/2024 1:30 PM EST Telemedicine Psychology, [address] [place] [phone] Roly Miller, MINE DEPUTY [address] [place] [address] 03/16/2024 2:30 PM EST Telemedicine Psychiatry, [place] [address] [place] [phone] Brooke Deluca CRNP [address] [place] [address] 03/24/2024 11:30 AM EST Office Visit Orthopaedics Spine Surgery, [place] [address] [place] [address] Elham Gutierrez, PARosalia [address] [place] [address] 03/30/2024 1:30 PM EST Imaging Radiology [facility] [address] [place] [phone] 04/02/2024 11:25 AM EST Office Visit Interventional Pain Center [facility] [address] [place] [phone] Chris Rea, DO [address] [place] [phone] 04/03/2024 12:10 PM EST Office Visit [facility] [address] [place] [phone] Elida Lance DO [address] [place] [address] 10/07/2024 2:40 PM EDT Telemedicine Endocrinology [address] [place] [address] Daniel Franco MD [address] [place] [address] 10/15/2024 3:30 PM EDT Office Visit Neurology [place] [address] [place] [address] Mariya Harding PA-C [address] [place] [address] 02/03/2026 2:20 PM EST Office Visit Dermatology, [address] [facility] [place] [address] Yessi Morton PA-C [address] [place] [address] [place] [address] Health Maintenance Due Date [...] Additional history exists CKD HGB USE SMARTSET 70483 10/02/202410/02, 08/14/2022, 03/16/2022, Additional history exists CKD PHOS USE SMARTSET 57787 10/17/2024 0808/2023, 03/16/2022, 02/09/2021, Additional history exists [...] this encounter Medical Devices Implanted Type Area Cattle Dealer Device Identifier Shelf Expiration Date Model / Serial / Lot Graft Infuse Bone Sm [id number] - [id number] Implanted:Qt y: 1 on 02/22/2012 at [place] [facility] [place] N/A: Spine Lumbar MED[employer] : NEUROLOGIC PAIN 08/01/2014 [id number] / / [id number] Screw 6x45 Poly Si [id number] - [id number] Implanted:Qt y: 2 on 02/22/2012 at OR [facility] N/A: Spine Lumbar JNJ : ETHICON CARDIOVATIONS [id number] / / Screw 7x35 Poly Si [id number] - [id number] Implanted:Qt y: 2 on 02/22/2012 at OR [facility] N/A: Spine Lumbar JNJ : ETHICON CARDIOVATIONS [id number] / / Asif 5.5x55 Ti Prbnt [id number] - [id number] Implanted:Qt y: 2 on 02/22/2012 at OR [facility] N/A: Spine Lumbar JNJ : DEPUY SPINE [id number] / / Screw Set Sng Inner [id number] - [id number] Implanted:Qt y: 4 on 02/22/2012 at OR [facility] N/A: Spine Lumbar JNJ : DEPUY SPINE [id number] / / Cage 28x8 Leopard [id number] - [id number] Implanted:Qt y: 1 on 02/22/2012 at OR [facility] N/A: Spine Lumbar JNJ : ETHICON CARDIOVATIONS [id number] / / Implant Brst Mod Cls Pro 360cc - [id number] Implanted:Qt y: 1 on 11/12/2012 at OR [facility] Right: Breast MENTOR KRISSY 09/11/2017 350-7360 / [id number] / [id number] Implant Brst Mod Cls Pro 360cc - [id number] Implanted:Qt y: 1 on 11/12/2012 at OR [facility] Left: Breast MENTOR KRISSY 08/12/2017 350-7360 / [id number] / [id number] 4.0 X 14 Variable Self Starting Screw Implanted:Qt y: 4 on 02/05/2020 by Luis Eduardo Ross MD at OR [facility] N/A: Spine Cervical KWADWO [id number] A / / 1 Level 20mm [place] View Plate Implanted:Qt y: 1 on 02/05/2020 by Luis Eduardo Ross MD at OR [facility] N/A: Spine Cervical KWADWO [id number] / / [id number] ree Alcutian Implanted:Qt y: 1 on 02/05/2020 by Luis Eduardo Ross MD at OR [facility] N/A: Spine Cervical KWADWO [id number] / / Description:alctuian cage 2.5cc Vitoss Bimodal Foam Pack Implanted:Qt y: 1 on 02/05/2020 by Luis Eduardo Ross MD at OR [facility] N/A: Spine Cervical KWADWO [id number] 11/29/20201347-7002 / [id number] / [id number] Tishing Andrzej One - [id number] Implanted:Qt y: 1 on 08/31/2022 by Chico Perry MD at OR [facility] N/A: Vagina [employer] 08/10/2023 LEATHA-[id number] / / [id number] documented as of this encounter Advance Directives [...] and were consensually agreed upon. Care Teams Fiberglass Boat Builder Relationship Specialty Start Date End Date lEida Lance DO PCP - General Family Medicine 11/03/19 documented as of this encounter
--- OUTSIDE RECORDS SUMMARY | 2024-06-26 12:54 | External Medical Summary | Summary of Care ---
Author Name Unknown Organization [facility] Address [address] [facility] [place] [address] Phone [phone] Care Team Providers Care Manager University Name Role Phone Elida Lance DO Primary Care Provider [phone] Encounter Details Date Type Department Care Team [...] DDD (degenerative disc disease), lumbar 11/21/19 12 [place] Confirmation Research Other*[id number] 06/11/2009 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 B12 malabsorption [...] mRNA, LNP-s, No Pre serve, 2-Dose Series (Dinnr) 12/08/2020,11/17/2020 Pneumococcal Conjugate Vacc, 13 Valent (Prevnar) [...] Description 03/13/2024 1:30 PM EST Telemedicine Psychology, [address] [place] [address] Roly Miller, PARIMUTUEL TICKET CHECKER 9 [place] [address] 03/16/2024 2:30 PM EST Telemedicine Psychiatry, [address] [address] Brooke Deluca CRNP [address] [place] [address] 03/24/2024 11:30 AM EST Office Visit Orthopaedics Spine Surgery, [place] [address] [place] [phone] Elham Gutierrez, PARosalia [address] [place] [address] 03/30/2024 1:30 PM EST Imaging Radiology [facility] [address] [place] [address] 04/02/2024 11:25 AM EST Office Visit Interventional Pain Center [facility] [address] [place] [address] Chris Rea, DO [address] [place] [address] 04/03/2024 12:10 PM EST Office Visit [facility] [address] [facility] [phone] Elida Lance, DO [address] [facility] [address] 10/07/2024 2:40 PM EDT Telemedicine Endocrinology [address] [place] [address] Daniel Franco MD [address] [place] [address] 10/15/2024 3:30 PM EDT Office Visit Neurology [facility] [address] [place] [address] Mariya Harding PA-C [address] [place] [address] 02/03/2026 2:20 PM EST Office Visit Dermatology, [address] [place] [address] Yessi Morton PA-C [address] [place] [address] [place] [address] Health Maintenance Due Date Last Done Comments [...] Additional history exists CKD HGB USE SMARTSET 75024 10/02/202410/02, 08/14/2022, 03/16/2022, Additional history exists CKD PHOS USE SMARTSET 91133 10/17/2024 08/1 08/2023, 03/16/2022, 02/09/2021, Additional history [...] this encounter Medical Devices Implanted Type Area Pv Installer Tech Device Identifier Shelf Expiration Date Model / Serial / Lot Graft Infuse Bone Sm [id number] - [id number] Implanted:Qt y: 1 on 02/22/2012 at OR [facility] N/A: Spine Lumbar MED[employer] : NEUROLOGIC PAIN 08/01/2014 [id number] / / [id number] Screw 6x45 Poly Si [id number] - [id number] Implanted:Qt y: 2 on 02/22/2012 at OR [facility] N/A: Spine Lumbar JNJ : ETHICON CARDIOVATIONS [id number] / / Screw 7x35 Poly Si [id number] - [id number] Implanted:Qt y: 2 on 02/22/2012 at OR [facility] N/A: Spine Lumbar JNJ : ETHICON CARDIOVATIONS [id number] / / Asif 5.5x55 Ti Prbnt [id number] - [id number] Implanted:Qt y: 2 on 02/22/2012 at OR [facility] N/A: Spine Lumbar JNJ : DEPUY SPINE [id number] / / Screw Set Sng Inner [id number] - [id number] Implanted:Qt y: 4 on 02/22/2012 at OR [facility] N/A: Spine Lumbar JNJ : DEPUY SPINE [id number] / / Cage 28x8 Leopard [id number] - [id number] Implanted:Qt y: 1 on 02/22/2012 at OR [facility] N/A: Spine Lumbar JNJ : ETHICON CARDIOVATIONS [id number] / / Implant Brst Mod Cls Pro 360cc - [id number] Implanted:Qt y: 1 on 11/12/2012 at OR [facility] Right: Breast MENTOR KRISSY 09/11/[address] [place] [address] / [id number] / [id number] Implant Brst Mod Cls Pro 360 - [id number] Implanted:Qt y: 1 on 11/12/2012 at OR [facility] Left: Breast MENTOR KRISSY 08/12/2017 [facility] / [id number] / [id number] 4.0 X 14 Variable Self Starting Screw Implanted:Qt y: 4 on 02/05/2020 by Luis Edu[facility] Ross [facility] N/A: Spine Cervical KWADWO [id number] A / / 1 Level 20mm [place] View Plate Implanted:Qt y: 1 on 02/05/2020 by Luis Eduardo Ross MD at [facility] N/A: Spine Cervical KWADWO [id number] / / [id number] Alcutian Implanted:Qt y: 1 on 02/05/2020 by Luis Eduardo Ross MD at [facility] N/A: Spine Cervical KWADWO [id number] / / Description:alctuian cage 2.5cc Vitoss Bimodal Foam Pack Implanted:Qt y: 1 on 02/05/2020 by Luis Eduardo Ross MD at [facility] N/A: Spine Cervical KWADWO [id number] 11/29/2020 8184-6078 / [id number] / [id number] ing Andrzej One - [id number] Implanted:Qt y: 1 on 08/31/2022 by Chico Perry MD at OR [facility] N/A: Vagina [employer] 08/10/2023 [id number] / / [id number] documented as of this encounter Advance Directives [...] were consensually agreed upon. Care Teams Manager University Relationship Specialty Start Date End Date Elida Lance DO PCP - General Family Medicine 11/03/19 documented as of this encounter
--- OUTSIDE RECORDS SUMMARY | 2024-06-26 12:55 | External Medical Summary | Summary of Care ---
Author Name Unknown Organization [facility] Address [address] [place] [address] Phone [phone] Care Team Providers Care Store Operations Associate Name Role Phone Elida Lance DO Primary Care Provider Reason for Visit * Reason Comments NEW PATIENT New pt. Here for sebas quiñones skin exam. No specific areas of concern. * Evaluate & Treat - Unlimited Visits (Within 10 days (routine)) - Authorized Specialty Diagnoses / Procedures Referred By Traci rizzo Referred To Contact Dermatology Diagnoses Skin lesion Elida Lance DO [address] [place] [address] Phone: tel: fax: Referral ID Status Reason Start Date Expiration Date Visits Requested Visits Authorized [id number] Authorized Specialty Services Required 03/20/[phone] Encounter Details Date Type Department Care Team (Late st Contact Info) Description 01/28/2024 3:20 PM EST Office Visit [address] [place] [address] Yessi Morton PA-C [address] [place] [address] [place] [address] Lentigines*; Skin exam, screening for cancer; Seborrheic keratosis; Golden angioma Allergies Active Allergy Reactions Criticality Noted Date Comments Nsaids 02/01/2020 Hx gastric bypass Other Allergy (See Comments) Rash Medium 013 Dermabond prineo Penicillins 10/04/1999 Rash, last dose was in her 20's Sulfa Antibiotics 10/04/1999 Rash in her early 20's documented as of this encounter (statuses as of 01/28/2024) Medications MULTIVITAMINS PO CAPS one daily Active [...] BY MOUTH EVERY DAY 100 Tablet 1 04/17/19 24 025 Active oxyBUTYnin Chloride ER 15 MG Oral Tablet Extended Release 24 Hour (Ditropan XL)Indications:U rinary urgency,Urge incontinence of urine Take 2 Tablets by mouth in the morning. 180 Tablet 3 11/28/2023 9:35 AM EDT 06/07/19 24 Active Lisinopril 2.5 MG Oral Tablet (Prinivil)Indica tions:HTN, goal below 140/90 Take 1/2 tablet by mouth daily 45 Tablet 3 01/02/2024 4:29 PM EDT 07/10/19 24 Active Trintellix 20 MG Oral Tablet (Vortioxetine HBr) Take 1 Tablet by mouth in the morning. 90 Tablet 1 12/16/2023 9:13 AM EDT 07/17/19 24 Active LORazepam 0.5 MG Oral Tablet (Ativan) Take 1 Tablet by mouth as needed for Anxiety. 15 Tablet 2 07/19/2023 8:50 AM EDT 07/17/19 24 Active Alendronate Sodium 70 MG Oral Tablet (Fosamax)Indicat ions:Osteoporosi s without current pathological fracture, unspecified osteoporosis type Take 1 Tablet by mouth once a week. APPOINTMENT NEEDED FOR FUTURE REFILLS. 12 Tablet 1 12/07/2023 10:10 AM EDT 09/19/19 24 Active Primidone 50 MG Oral Tablet [...] ONE-HALF TABLET BEFORE BEDTIME 90 Tablet 2 01/26/20 24 Active Pregabalin 50 MG Oral Capsule (Lyrica) Take 1 capsule by mouth at night for 5 days then increase to 1 capsule twice daily. 60 Capsule 3 01/09/2024 4:06 PM EST 01/09/20 24 024 Discontin ued(Patie nt preferenc e/discont inuation) documented as of this encounter (statuses as of 01/28/2024) Active Problems Problem Noted Date Diagnosed Date [...] disease), lumbar 11/21/19 12 [facility] Confirmation Research Other*[id number] 11/2009 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 B12 malabsorption s/p gastric bypass 07/14/2002 Allergic rhinitis 02/12/2002 Dyslipidemia, goal LDL below 130 12/04/2001 Chronic rhinitis HTN, goal below 140/90 Spinal stenosis, lumbar Spondylolisthesis documented as of this encounter (statuses as of 01/28/2024) Resolved Problems Problem Noted Date Diagnosed Date [...] as of this encounter (statuses as of 01/28/2024) Immunizations Name Administration Dates Next Due COVID-19 mRNA, LNP-s, No Pre serve, 2-Dose Series (Pfizer) 12/08/2020,11/17/2020 Pneumococcal Conjugate Vacc, 13 Valent (Prevnar) 07/09/2016 Pneumococcal Polysaccharide PPV23 (Pneumovax) 08/21/2013 Seasonal Influenza Vac., MDV , IM, 0.5 mL (Fluzone) 11/13/2011,02/06/2010,03/02/2009,01/12,12/04/2006,03/08/2006 Seasonal Influenza, PF, 6 M & above, IM , (FluLaval or Fluzone) 03/20/2023,01/31/2022,02/09/2021,01/04,12/19/2017 Seasonal Influenza, Quadriva lent, No Preserve, IM 11/16/2016,11/16/2015 TD - Tetanus/Diptheria (ADULT) 01/02/1995 TD, Preservative [...] this encounter Patient Instructions * Patient Instructions* Yessi Morton PA-C - 01/28/2024 3:23 PM EST SUNSCREEN USE AND SUN PROTECTION: 1. The best protection is sun avoidance. Seek shade if you can, especially between 10am to 4pm (peak sun hours). 2. Use sunscreen with an SPF (Sun Protection Factor - the number on most sunscreen bottles) of 30 or more that protects from Ultraviolet A (UVA) and Ultraviolet B (UVB) wavelength light (strongly recommend SPF 50). This is referred to as broad spectrum sun protection because it protects from most wa velengths in both spectrums of UVA and UVB light. Unfortunately, even though the protection is broad it is not complete, therefore making sun avoidance the best protection. UVB and UVA have both beenimplicated in causing skin cancers. Older sunscreens only protected from UVB and sunscreens with added UVA protection should contain Titanium dioxide, Zinc oxide, or Avobenzone. Other oil free, non-comedogenic lotion with SPF 30 or greater is fine. 3. Use sun protection if outside for 15 minutes or more. Apply 20-30 minutes before going out and reapply every 1-2 hours. No sunscreen is truly water ''proof'' and it will wash away with sweat, swimming and rubbing. 4. Wear tightly woven, loose fitting (cooler) long sleeved clothing, UV-blocking sun glasses (eyes need protection as well) and wide-brimmed hatwear (no straw hats with holes because light still getsthrough). Strongly recommended *Neutrogena Pure and Free Baby SPF 60 (have separate face and body lotions) orCeraVe AM facial lotion (with SPF 30). If looking for non toxic alternatives-look for non-marianna particle zinc. Product examples; Think sport, Think baby, Jeanine, Quikly botanicals, AlbGELI, [place] baby. "Baby" products can be used for all ages. documented in this encounter Progress Notes * Vinh Atkinson MD - 01/28/2024 4:05 PM EST I have seen and examined the patient via teledermatology review of chart note and photos with Yessi Morton PA-C. I have reviewed and agree with the assessment and plan. * Yessi Morton PA-C - 01/28/2024 3:20 PM EST SUBJECTIVE: HPI: Martha Lawson is a 63 year old female seen at the request of Elida Lance DO for evaluation and treatment of full skin exam. No vulvar exams performed, no vulvar discoloration and/or lesions to be assessed per pt. + Tanning bed history. + Blistering sunburns. No new or changing lesions, per pt. Previous SP providers seen. Billing Spec Documentation Patient offered school bus monitor and declined. REVIEW OF SYSTEMS: SKIN: No other new or changing moles. HEME/LYMPH: No new or enlarging lumps or bumps. CONSTITUTIONAL: No nausea, vomiting, fevers, chills, diarrhea. No recent unintended weight loss, night sweats, appetite or malaise. RESP: negative MSK/EXT: Negative or as per HPI GI: negative CV: Negative or as per HPI Rest of systems are negative or as per HPI SKIN CANCER HX: NONE Reviewed, same day as visit, [facility] Dermatology lab work(s)/pathology report(s) as well as those sent by referring provider prior to seeing pt. Past Medical History: Diagnosis Date Allergic rhinitis Asthma, allergic no significant exacerbations since bypass ; 2004 Backache 03/04/1990 Backache Depressive disorder, not elsewhere classified 03/04/1984 Depression Fibromyalgia Gastritis and gastroduodenitis 02/27/2007 mild chronic gastritis GERD (gastroesophageal reflux disease) HTN (hypertension) INFORMATION chronic rhinitis Migraine Obesity, BMI not known life long seen at the high risk obsity clinic in [facility] [place] [place] Pancreatitis Spinal stenosis, lumbar Spondylolisthesis FAMILY HISTORY: Skin CA: None Skin Disorders: none SOCIAL HISTORY: Social History Tobacco Use Smoking status: Former Current packs/day: 0.00 Average packs/day: 0.3 packs/day for 15.0 years (3.8 ttl pk-yrs) Types: Cigarettes Start date: 07/12/2001 Quit date: 07/12/2016 Years since quittin.5 Passive exposure: Past Smokeless tobacco: Never Substance Use Topics Alcohol use: Not Currently Comment: seldom Vaping/E-Cigarette Use Vaping/E-Cigarette Use Current Every Day User Passive Exposure No Counseling Given? Yes Comments Medical Marijuana Vaping/E-Cigarette Substances Nicotine No Other No Flavoring No THC Yes Cannabidiol (CBD) Yes Vaping/E-Cigarette Devices Disposable Yes Pre-filled or Refillable Cartridge Yes Refillable Tank No Pre-filled Pod No MEDICA TIONS: Current Outpatient Medications Medication Sig Dispense Refill [...] as needed for Anxiety. 15 Tablet 2 Alendronate Sodium 70 MG Oral Tablet (Fosamax) Take 1 Tablet by mouth once a week. APPOINTMENT NEEDED FOR FUTURE REFILLS. 12 Tablet 1 Primidone 50 MG Oral Tablet (Mysoline) Take one-half tablet by mouth twice daily 180 Tablet 0 methylPREDNISolone 4 MG Oral Tablet Therapy Pack (Medrol Dosepack) follow package directions (Patient not taking: Reported on 01/09/2024) 21 Tablet 0 buPROPion HCl ER (SR) 100 MG Oral Tablet Extended Release 12 Hour (Wellbutrin SR) Take 1 Tablet by mouth every evening. 30 Tablet 2 Pregabalin 50 MG Oral Capsule (Lyrica) Take 1 capsule by mouth at night for 5 days then increase to1 capsule twice daily. 60 Capsule 3 traZODone HCl 150 MG Oral Tablet (Desyrel) Take 1 Tablet by mouth at bedtime. 90 Tablet 1 Metoprolol Tartrate 25 MG Oral Tablet (Lopressor) TAKE ONE-HALF TABLET BY MOUTH IN THE MORNING AND ONE-HALF TABLET BEFORE BEDTIME 90 Tablet 2 No current facility-administered medications for this visit. Facility-Administered Medications Ordered in Other Visits Medication Dose Route Frequency Provider Last Rate Last Admin glycopyrrolate (ROBINUL) inj Once PRN Tj Rincon CRNA 0.6 mg at 02/22/12 110 neostigmine methylsulfate (PROSTIGMIN) 1 MG/ML inj Once PRN Tj Rincon CRNA 3 mg at 02/22/12 1103 ALLERGY: Other allergy (see comments), Nsaids, Penicillins, and Sulfa antibiotics OBJECT ZARI: GEN: alert, no distress, appears oriented, pleasant, and cooperative. SKIN: Detailed exam of hair, face including lids and lips, neck, chest, abdomen, back, bilateral upper ext. (arm, hand, fingers), bilateral lower ext. (leg, foot, toes), palpation of scalp, fingernails, toenail korean present, inguinal areas, groin (mons pubis), buttocks, and anus completed: 1. Face/trunk/bilat arms and legs-Few well defined light to medium brown homogenous stellate macules. 2. Trunk-Very few scattered bright red to purple well defined 1-3mm macules and papules. 3. L rastafarian/bilat arms and legs-Few sharply defined, variegated brown, waxy flat papules with velvety to finely verrucous surfaces. ASSESS MENT/PLAN: 1. Lentigines on face/trunk/bilat arms and legs-No treatment needed, pt given reassurance. Skin cancer brochure given and ABCDE's discussed with patient. Annual full body skin examination (unless I recommended otherwise), self-examination, and sun protection (SPF 30+ daily to sun exposed areas, with reapplication every 1-2 hours when out in sun for long periods of time) advised and discussed. Recommended sooner follow up for new or changing lesions. These changes include rapid enlargement, changes in color or shape or symptoms, bleeding, or other concerns. The common features and behavior of non-melanoma skin cancers (e.g. BCC/SCC) as well as the ABCDEs and ugly duckling features of melanoma were also reviewed. 2. Golden angiomas on trunk-No treatment needed, pt given reassurance. 3. Seborrheic/Benign Keratosis(-es) on L rastafarian/bilat arms and legs-no tx needed, pt given reassurance and written education about diagnosis. Patient alone today. Photo(s) of #1-3 taken, pt verbally consented to having photo(s) taken. Follow-up: 2 years for full skin exam Photos and chart reviewed by Dr. Vinh Atkinson. Presum ed diagnoses, expected natural histories, and management options discussed with the patient at length. Questions were addressed and anticipatory guidance provided. They were instructed to contact me if additional questions, concerns, or problems develop in the interim. -There were no barriers to learning and no other pain was related to today's visit. The patient and/or person accompanying patient demonstrates understanding of the visit and treatment. Yessi Morton PA-C 01/28/2024 3:[address] [facility] [facility] [address] [facility] [address] documented in this encounter Nursing Notes * Larissa Jewell LPN - 01/28/2024 2:34 PM EST Patient identified by full name and date of Chief Complaint Patient presents with NEW PATIENT New pt. Here for full skin exam. No specific areas of concern. documented in this encounter Plan of Treatment Upcoming Encounters Date Type Department Care Team (Late st Contact Info) Description 02/04/2024 2:20 PM EST NeuroDiagnostic Study Neurophysiology [address] [place] [address] Erin Garcia MD [address] [place] [address] 02/17/2024 2:30 PM EST Telemedicine [address], [place] [address] [place] [address] Roly Miller, [employer] LAW CLERK [address] [place] [address] 03/16/2024 2:30 PM EST Telemedicine Psychiatry, [address] [place] [address] Brooke Deluca CRNP [address] [place] [address] 03/30/2024 1:30 PM EST Imaging Radiology, [address] [place] [address] 04/02/2024 11:25 AM EST Office Visit Interventional Pain Center, [facility] [address] [place] [address] Chris Rea, DO [address] [place] [phone] 04/03/2024 12:10 PM EST Office Visit Family Practice, [facility] [address] [place] [phone] Elida Lance, DO [address] [place] [address] 10/07/2024 2:40 PM EDT Telemedicine Endocrinology [address] [address] [place] [address] Daniel Franco MD [address] [place] [address] 10/15/2024 3:30 PM EDT Office Visit Neurology Nina Alston [place] [address] [place] [address] Mariya Harding PA-C [address] [place] [address] 02/03/2026 2:20 PM EST Office Visit Dermatology, [address] [place] [phone] Yessi Morton PA-C [address] [place] [address] [place] [address] Health Maintenance Due Date Last Done Comments Fecal Occult Blood Test 2006 Sigmoidoscopy 2006 Mammogram 08/09/2017 08/09/2016, 09/2015, 08/05/2014, Additional history exists Colonoscopy 01/14/2022 01/15/2012, 01/15/2012 COVID-19 Vaccine ( season) 2023 12/08/2020, 11/17/2020 Influenza Vaccine (FLU shot) (#1) 2023 03/20/2023, 01/31/2022, 02/09/2021, Additional history exists Albumin/Creatinine Ratio 03/21/2024 024, 02/03/2019, 09/05/2017, Additional history exists GFR 04/19/2024 10/18/2023, 08/0 03/2023, 03/20/2023, Additional history exists CKD HGB USE SMARTSET 48385 10/02/202410/02, 08/14/2022, 03/16/2022, Additional history exists CKD PHOS USE SMARTSET 14863 10/17/202410/02, 03/16/2022, 02/09/2021, Additional history exists Depression Monitoring 01/01/2025 01/02/2024, 024 Cologuard 04/04/2025 04/04/2022, 03/05, 03/27/2022 Colorectal Cancer Screening 04/04/2025 Diabetes Screening 10/17/2026 10/18/2023, 0 10/03/2023, 03/20/2023, Additional history exists Lipid Panel 09/12/2028 09/13/2023, 10/02, 02/03/2019, Additional history exists DTap/Tdap Vaccines (3 - Td or Tdap) 02/18/2033 02/18/2023, 02/06/2010, 01/11/2005, Additional history exists Pneumococcal Vaccine: Pediatrics (0 to 5 Years) and At-Risk Patients (6 to 64 Years) Aged Out 07/09/2016, 08/21/2013 No longer eligibl e based on patient's age to complete this topic Zoster Vaccines Completed 06/17/2018, 02/02, 07/09/2016 HPV [...] this encounter Medical Devices Implanted Type Area Front Tender Device Identifier Shelf Expiration Date Model / Serial / Lot Graft Infuse Bone Sm [id number] - [id number] Implanted:Qt y: 1 on 02/22/2012 at OR [facility] [place] [place] N/A: Spine Lumbar MED[employer] : NEUROLOGIC PAIN 08/01/2014 [id number] / / [id number] Screw 6x45 Poly Si [id number] - [id number] Implanted:Qt y: 2 on 02/22/2012 at OR [facility] [place] [place] N/A: Spine Lumbar JNJ : ETH[employer] [id number] / / Screw 7x35 Poly Si [id number] - [id number] Implanted:Qt y: 2 on 02/22/2012 at OR [facility] [place] [place] N/A: Spine Lumbar JNJ : ETH[employer]ON [employer] [id number] / / Asif 5.5x55 Ti Prbnt [id number] - [id number] Implanted:Qt y: 2 on 02/22/2012 at OR [facility] [place] [place] N/A: Spine Lumbar JNJ : DEPUY SPINE [id number] / / Screw Set Sng Inner [id number] - [id number] Implanted:Qt y: 4 on 02/22/2012 at OR [facility] [place] [place] N/A: Spine Lumbar JNJ : DEPUY SPINE [id number] / / Cage 28x8 Leopard [id number] - [id number] Implanted:Qt y: 1 on 02/22/2012 at OR [facility] [place] [place] N/A: Spine Lumbar JNJ : ETH[employer]ON [employer] [id number] / / Implant Brst Mod Cls Pro 360cc - [id number] Implanted:Qt y: 1 on 11/12/2012 at OR [facility] [place] [place] Right: Breast MENTOR KRISSY 09/11/2017 [id number] / [id number] / [id number] Implant Brst Mod Cls Pro 360cc - [id number] Implanted:Qt y: 1 on 11/12/2012 at OR [facility] [place] [place] Left: Breast MENTOR KRISSY 08/12/2017 [id number] / [id number] / [id number] 4.0 X 14 Variable Self Starting Screw Implanted:Qt y: 4 on 02/05/2020 by Luis Eduardo Ross MD at OR [facility] N/A: Spine Cervical KWADWO [id number] / / 1 Level 20mm [place] View Plate Implanted:Qt y: 1 on 02/05/2020 by Luis Eduardo Ross MD at OR [facility] N/A: Spine Cervical KWADWO [id number] / / [id number] Alcutian Implanted:Qt y: 1 on 02/05/2020 by Luis Eduardo Ross MD at OR [facility] N/A: Spine Cervical KWADWO [id number] / / Description:alctuian cage 2.5cc Vitoss Bimodal Foam Pack Implanted:Qt y: 1 on 02/05/2020 by Luis Eduardo Ross MD at OR [facility] N/A: Spine Cervical KWADWO [id number] 11/29/[id number] / [id number] / [id number] Tishing Andrzej One - [id number] Implanted:Qt y: 1 on 08/31/2022 by Chico Perry MD at OR [facility] N/A: Vagina [employer] 08/10/2023 [id number] / / [id number] documented as of this encounter Procedures Procedure Name Priority Date/Time Associated Diagnosis Comments DERM EXAM - DERM (IMAGES ONLY, NO REPORT) Routine 01/28/2024 3:33 PM EST Skin exam, screening for cancer Seborrheic keratosis Golden angioma Lentigines documented in this encounter Results * DERM EXAM - DERM (IMAGES ONLY, NO REPORT) (01/28/2024 3:33 PM EST) Narrative Scheduling, Silent - 01/28/2024 3:33 PM EST This is an imaging study not interpreted or resulted by a [employer] or [employer] contracted radiologist. Yessi Morton PA-C RADIOLOGY ([facility] ) Final Result documented in this encounter Visit Diagnoses Diagnosis Lentigines- Primary Other dyschromia Skin exam, screening for cancer Screening for malignant neoplasm of the skin Seborrheic keratosis Other seborrheic keratosis Golden angioma Nevus, non-neoplastic documented in this encounter Advance Directives * [...] and were consensually agreed upon. Care Teams Store Operations Associate Relationship Specialty Start Date End Date Elida Lance DO [address] [place] [id number] PCP - General Family Medicine 11/03/19 documented as of this encounter
--- OUTSIDE RECORDS SUMMARY | 2024-06-26 12:55 | External Medical Summary | Summary of Care ---
Author Name Unknown Organization [facility] Address [address] [facility] [place] [address] Phone [phone] Care Team Providers Care Client Relationship Consultant Name Role Phone Elida Lance DO Primary Care Provider Reason for Visit * Reason Comments NEW PATIENT New pt. Here for sebas quiñones skin exam. No specific areas of concern. * Evaluate & Treat - Unlimited Visits (Within 10 days (routine)) - Authorized Specialty Diagnoses / Procedures Referred By Traci rizzo Referred To Contact Dermatology Diagnoses Skin lesion Elida Lance DO [address] [place] [address] Phone: tel: fax: Referral ID Status Reason Start Date Expiration Date Visits Requested Visits Authorized [id number] Authorized Specialty Services Required 03/20/2023 999 [id number] Encounter Details Date Type Department Care Team (Late st Contact Info) Description 01/28/2024 3:20 PM EST Office Visit [address] [place] [address] Yessi Morton PA-C [address] [place] [address] [place] [phone] Lentigines*; Skin exam, screening for cancer; Seborrheic [...] disease), lumbar 11/21/19 12 [facility] Confirmation Research Other*[id number] 11/2009 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 B12 malabsorption [...] encounter Patient Instructions * Patient Instructions* Yessi oMrton PA-C - 01/28/2024 3:23 PM EST SUNSCREEN [...] zinc. Product examples; Think sport, Think baby, [place], Babo botanicals, [employer], [place] baby. "Baby" products can be used for all ages. documented in this encounter Progress Notes * Yessi Morton PA-C - 01/28/2024 3:20 [...] lesions, per pt. Previous SP providers seen. Silver Wrapper Documentation Patient offered recreation coordinator and declined. REVIEW OF SYSTEMS: SKIN: No [...] NONE Reviewed, same day as visit, 6 [facility] Dermatology lab work(s)/pathology report(s) as well as [...] [facility] [place] Pancreatitis Spinal stenosis, lumbar Spondylolisthesis FAMILY HISTORY: [...] glycopyrrolate (ROBINUL) inj Once PRN Tj Rincon SUPERVISOR INSTRUMENT REPAIR 0.6 mg at 02/22/12 1103 neostigmine methylsulfate (PROSTIGMIN) 1 MG/ML inj Once PRN Tj Rincon SUPERVISOR INSTRUMENT REPAIR 3 mg at 02/22/12 1103 ALLERGY: Other allergy (see comments), Nsaids, Penicillins, and Sulfa antibiotics OBJECT ZARI: GEN: alert, no distress, appears oriented, pleasant, and cooperative. SKIN: Detailed exam of hair, face including lids and lips, neck, chest, abdomen, back, bilateral upper ext. (arm, hand, fingers), bilateral lower ext. (leg, foot, toes), palpation of scalp, fingernails, toenail kinyarwanda present, inguinal areas, groin (mons pubis), buttocks, and anus completed: 1. Face/trunk/bilat arms and legs-Few well defined light to medium brown homogenous stellate macules. 2. Trunk-Very few scattered bright red to purple well defined 1-3mm macules and papules. 3. L church/bilat arms and legs-Few sharply defined, variegated brown, [...] given reassurance. 3. Seborrheic/Benign Keratosis(-es) on L church/bilat arms and legs-no tx needed, pt given [...] treatment. Yessi Morton PA-C 01/28/2024 3:23 PM Dermatology, [place] [address] [place] [phone] documented in this encounter Nursing Notes * [...] 02/04/2024 2:20 PM EST NeuroDiagnostic Study Neurophysiology [facility] [address] [place] [address] Erin Garcia MD [address] [place] [address] 02/17/2024 2:30 PM EST Telemedicine Psychology Jamal Silva [address] [place] [address] Roly Miller, [place] [address] [place] [address] 03/16/2024 2:30 PM EST Telemedicine Psychiatry, [place] [address] [place] [address] Brooke Deluca CRNP [address] [place] [address] 03/30/2024 1:30 PM EST Imaging Radiology, [facility] [address] [place] [address] 04/02/2024 11:25 AM EST Office Visit Interventional Pain Center, [facility] [address] [facility] [address] Chris Rea, DO [address] [facility] [place] [address] 04/03/2024 12:10 PM EST Office Visit [facility] Practice, [facility] [address] [facility] [address] Elida Lance, [address] [place] [address] 10/07/2024 2:40 PM EDT Telemedicine Endocrinology [address] [place] [place] [address] Daniel Franco MD [address] [facility] [place] [address] 10/15/2024 3:30 PM EDT Office Visit Neurology [facility] [address] [place] [address] Mariya Harding PA-C [address] [place] [address] 02/03/2026 2:20 PM EST Office Visit [facility], [place] [facility] [address] [facility] [place] [address] Yessi Morton PA-C [address] [place] [address] [place] [address] Health Maintenance Due Date Last Done Comments Fecal Occult Blood Test 2006 Sigmoidoscopy 2006 Mammogram 08/09/2017 08/09/2016, 06/0 09/2015, 08/05/2014, Additional history exists Colonoscopy 01/14/2022 01/15/2012, 01/15/2012 COVID-19 Vaccine ( season) 2023 12/08/2020, 11/17/2020 Influenza Vaccine (FLU shot) (#1) 2023 03/20/2023, 01/31/2022, 02/09/2021, Additional history exists Albumin/Creatinine Ratio 03/21/2024 024, 02/03/2019, 09/05/2017, Additional history exists GFR 04/19/2024 10/18/2023, 08/0 03/2023, 03/20/2023, Additional history exists CKD HGB USE SMARTSET 35486 10/02/202410/02, 08/14/2022, 03/16/2022, Additional history exists CKD PHOS USE SMARTSET 06327 10/17/202410/02, 03/16/2022, 02/09/2021, Additional history exists Depression [...] this encounter Medical Devices Implanted Type Area Etch Operator Semiconductor Wafers Device Identifier Shelf Expiration Date Model / Serial / Lot Graft Infuse Bone Sm [id number] - [id number] Implanted:Qt y: 1 on 02/22/2012 at [place] [facility] [place] N/A: Spine Lumbar MED[employer] : NEUROLOGIC PAIN 08/01/2014 [id number] / / [id number] Screw 6x45 Poly Si [id number] - [id number] Implanted:Qt y: 2 on 02/22/2012 at OR [facility] [place] N/A: Spine Lumbar JNJ : ETHICON CARDIOVATIONS [id number] / / Screw 7x35 Poly Si [id number] - [id number] Implanted:Qt y: 2 on 02/22/2012 at OR [facility] [place] N/A: Spine Lumbar JNJ : ETHICON CARDIOVATIONS [id number] / / Asif 5.5x55 Ti Prbnt [id number] - [id number] Implanted:Qt y: 2 on 02/22/2012 at OR [facility] [place] N/A: Spine Lumbar JNJ : DEPUY SPINE [id number] / / Screw Set Sng Inner [id number] - [id number] Implanted:Qt y: 4 on 02/22/2012 at OR [facility] [place] N/A: Spine Lumbar JNJ : DEPUY SPINE [id number] / / Cage 28x8 Leopard [id number] - [id number] Implanted:Qt y: 1 on 02/22/2012 at OR [facility] [place] N/A: Spine Lumbar JNJ : ETHICON CARDIOVATIONS [id number] / / Implant Brst Mod Cls Pro 360cc - [id number] Implanted:Qt y: 1 on 11/12/2012 at OR [facility] [place] Right: Breast MENTOR KRISSY 09/11/2017 [facility]7360 / [id number] / [id number] Implant Brst Mod Cls Pro 360cc - [id number] Implanted:Qt y: 1 on 11/12/2012 at OR [facility] [place] Left: Breast MENTOR KRISSY 08/12/2017 [facility]-7360 / [id number] / [id number] 4.0 X 14 Variable Self Starting Screw Implanted:Qt y: 4 on 02/05/2020 by Luis Eduardo Ross MD at OR [facility] N/A: Spine Cervical KWADWO [id number] / / 1 Level 20mm [place] Plate Implanted:Qt y: 1 on 02/05/2020 by Luis Eduardo Ross MD at OR [facility] N/A: Spine Cervical KWADWO [id number] / / [id number] Alcutian Implanted:Qt y: 1 on 02/05/2020 by Luis Eduardo Ross MD at OR [facility] N/A: Spine Cervical KWADWO [id number] / / Description:alctuian cage 2.5cc Vitoss Bimodal Foam Pack Implanted:Qt y: 1 on 02/05/2020 by Luis Eduardo Ross MD at OR [facility] N/A: Spine Cervical KWADWO [id number] 11/29/2020 7211-3586 / [id number] / [id number] Sling Desara One - [id number] Implanted:Qt y: 1 on 08/31/2022 by Chico Perry MD at OR [facility] N/A: Vagina [employer] 08/10/2023 [id number] / / [id number] documented as of this encounter Procedures Procedure [...] study not interpreted or resulted by a [facility] or [facility] contracted radiologist. Result [facility] Yessi Morton PA-C RADIOLOGY ([facility] ) Final Result documented in [...] were consensually agreed upon. Care Teams Client Relationship Consultant Relationship Specialty Start Date End Date Elida Lance DO [address] [facility] [place] [address] PCP - General Family Medicine 11/03/19 documented as of this encounter
--- OUTSIDE RECORDS SUMMARY | 2024-06-26 12:55 | External Medical Summary | Summary of Care ---
Author Name Unknown Organization [facility] Address [address] [place] [address] Phone [phone] Care Team Providers Care Media Production Manager Name Role Phone Elida Lance DO Primary Care Provider Reason for Visit * Reason Comments Medication Refill Encounter Details Date Type Department Care Team (Late st Contact Info) Description 02/27/2024 Refill Endocrinology, [place] [address] [facility] [place] [address] Rain Mendez MD [address] [place] [address] Osteoporosis without current pathological fracture, unspecified osteoporosis type Allergies Active Allergy Reactions Criticality Noted Date Comments Nsaids 02/01/2020 Hx gastric bypass Other Allergy (See Comments) Rash Medium 013 Dermabond prineo Penicillins 10/04/1999 Rash, last dose was in her 20's Sulfa Antibiotics 10/04/1999 Rash in her early 20's documented as of this encounter (statuses as of 02/27/2024) Medications MULTIVITAMINS PO CAPS one daily Active [facility] IRON 45 MG PO TABS daily Active Metoclopramide HCl 5 MG Oral Tablet (Reglan) Take 1 Tablet by mouth every 4 hours as needed for Nausea. 20 Tablet 05/18/20 23 Active Pantoprazole Sodium 40 MG Oral [...] mouth once a week. 12 Tablet 3 02/27/20 24 Active Alendronate Sodium 70 MG Oral Tablet (Fosamax)Indicat ions:Osteoporosi s without current pathological fracture, unspecified osteoporosis type Take 1 Tablet by mouth once a week. APPOINTMENT NEEDED FOR FUTURE REFILLS. 12 Tablet 1 12/07/2023 10:10 AM EDT 09/19/19 24 024 Discontin ued(Refil l) documented as of this encounter (statuses as of 02/27/2024) Active Problems Problem Noted Date Diagnosed Date [...] disease), lumbar 11/21/19 12 [facility] Confirmation Research Other*[id number] 11/2009 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 B12 malabsorption s/p gastric bypass 07/14/2002 Allergic rhinitis 02/12/2002 Dyslipidemia, goal LDL below 130 12/04/2001 Chronic rhinitis HTN, goal below 140/90 Spinal stenosis, lumbar Spondylolisthesis documented as of this encounter (statuses as of 02/27/2024) Resolved Problems Problem Noted Date Diagnosed Date [...] as of this encounter (statuses as of 02/27/2024) Immunizations Name Administration Dates Next Due COVID-19 mRNA, LNP-s, No Pre serve, 2-Dose Series (Fliplingo) 12/08/2020,11/17/2020 Pneumococcal Conjugate Vacc, 13 Valent (Prevnar) [...] No 10/23/2023 Does the household have a [facility] source of income? (Household - for ages [...] encounter Miscellaneous Notes * Telephone Encounter - Rain Mendez MD - 02/27/2024 11:01 AM ESTSigned Prescriptions: Disp Refills Alendronate Sodium 70 MG Oral Tablet (Fosa*12 Tab*3 Sig: Take 1 Tablet by mouth once a week. Authorizing Provider: RAIN MENDEZ * Telephone Encounter - Belem Crook LPN - 02/27/2024 8:29 AM ESTPending Prescriptions: Disp Refills Alendronate Sodium 70 MG Oral Tablet (Fosa*12 Tab*3 Sig: Take 1 Tablet by mouth once a week. * Telephone Encounter - Belem Crook LPN - 02/27/2024 8:17 AM EST This medication has been pended for renewal in accordance with our office medication renewal policy. Pending Prescriptions: Disp Refills Alendronate Sodium 70 MG Oral Tablet (Fos*12 Tab*3 Sig: Take 1 Tablet by mouth once a week. 10/16/2023 (in office), 02/15/2022 (telemedicine) Last date the medication was ordered: 09/19/2023 Pharmacy: [facility] documented in this encounter Plan of Treatment Upcoming Encounters Date Type Department Care Team (Late st Contact Info) Description 03/13/2024 1:30 PM EST Telemedicine Psychology, [place] [address] [place] [address] Roly Miller, [address] [address] [place] [address] 03/16/2024 2:30 PM EST Telemedicine Psychiatry, [place] [address] [place] [phone] Brooke Deluca CRNP [address] [place] [address] 03/30/2024 1:30 PM EST Imaging Radiology [facility] [address] [place] [phone] 04/02/2024 11:25 AM EST Office Visit Interventional Pain Center [facility] [address] [place] [address] Chris Rea, DO [address] [place] [address] 04/03/2024 12:10 PM EST Office Visit [place] [facility] [address] [place] [phone] Elida Lance, DO [address] [place] [address] 10/07/2024 2:40 PM EDT Telemedicine Endocrinology [address] [place] [address] Rain Mendez MD [address] [place] [address] 10/15/2024 3:30 PM EDT Office Visit Neurology [facility] [address] [place], [place] [phone] Mariya Harding, PAEfrainC [address] [place] [address] 02/03/2026 2:20 PM EST Office Visit Dermatology, [place] [address] [place] [address] Yessi Morton PA-C [address] [place] [address] [place] [phone] Health Maintenance Due Date Last Done Comments [...] Additional history exists CKD HGB USE SMARTSET 31853 10/02/202410/02, 08/14/2022, 03/16/2022, Additional history exists CKD PHOS USE SMARTSET 70423 10/17/2024 0808/2023, 03/16/2022, 02/09/2021, Additional history exists [...] 5 Years) and At-Risk Patients (6 to 18 Years and 19+ Years) Aged Out 07/09/2016, 08/21/2013 No longer winsome gible based on patient's age to complete this [...] encounter Medical Devices Implanted Type Area Paper Plate Machine Tender Device Identifier Shelf Expiration Date Model / Serial / Lot Graft Infuse Bone Sm [id number] - [id number] Implanted:Qt y: 1 on 02/22/2012 [place] [facility] [place]: Spine Lumbar MED[employer] : NEUROLOGIC PAIN 08/01/2014 [id number] / / [id number] Screw 6x45 Poly Si [id number] - [id number] Implanted:Qt y: 2 on 02/22/2012 [place] [facility] [place]A: Spine Lumbar JNJ : ETHICON CARDIOVATIONS [id number] / / Screw 7x35 Poly Si [id number] - [id number] Implanted:Qt y: 2 on 02/22/2012 [place] [facility] [place]A: Spine Lumbar JNJ : ETHICON CARDIOVATIONS [id number] / / Asif 5.5x55 Ti Prbnt [id number] - [id number] Implanted:Qt y: 2 on 02/22/2012 [place] [facility] [place]A: Spine Lumbar JNJ : DEPUY SPINE [id number] / / Screw Set Sng Inner [id number] - [id number] Implanted:Qt y: 4 on 02/22/2012 [place] [facility] [place]A: Spine Lumbar JNJ : DEPUY SPINE [id number] / / Cage 28x8 Leopard [id number] - [id number] Implanted:Qt y: 1 on 02/22/2012 [place] [facility] [place]A: Spine Lumbar JNJ : ETHICON CARDIOVATIONS [id number] / / Implant Brst Mod Cls Pro 360cc - [id number] Implanted:Qt y: 1 on 11/12/2012 [place] [facility] [place] Right: Breast MENTOR RKISSY 09/11/2017 350-7360 / [id number] / [id number] Implant Brst Mod Cls Pro 360cc - [id number] Implanted:Qt y: 1 on 11/12/2012 at [place] [facility] [place] Left: Breast MENTOR KRISSY 08/12/2017 350-7360 / [id number] / [id number] 4.0 X 14 Variable Self Starting Screw Implanted:Qt y: 4 on 02/05/2020 by Luis Eduardo Ross MD at OR [facility] N/A: Spine Cervical KWADWO [id number] / / 1 Level 20mm [place] Plate Implanted:Qt y: 1 on 02/05/2020 by Luis Eduardo Ross MD at OR [facility] N/A: Spine Cervical KWADWO [id number] / / [id number] Alcutian Implanted:Qt y: 1 on 02/05/2020 by Luis Eduardo Ross MD at OR [facility] N/A: Spine Cervical KWADWO [id number] / / Description:alctuian cage 2.5cc Vitoss Bimodal Foam Pack Implanted:Qt y: 1 on 02/05/2020 by Luis Eduardo Ross MD at OR [facility] N/A: Spine Cervical KWADWO [id number] 11/29/2020 5775-4294 / [id number] / [id number] ing Parkerelliot One - [id number] Implanted:Qt y: 1 on 08/31/2022 by Chico Perry MD at OR [facility] N/A: Vagina [employer] 08/10/2023 [id number] / / [id number] documented as of this encounter Visit Diagnoses Diagnosis Osteoporosis without current pathological fracture, unspecified osteoporosis type documented in this encounter Advance Directives * [...] and were consensually agreed upon. Care Teams Media Production Manager Relationship Specialty Start Date End Date Elida Lance DO PCP - General Family Medicine 11/03/19 documented as of this encounter
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
--- OUTSIDE RECORDS SUMMARY | 2024-06-26 12:55 | External Medical Summary | Summary of Care ---
Author Name Unknown Organization [facility] Address [address] [place] [facility] [place] [address] Phone [phone] Care Team Providers Care Director Of Strategic Marketing Name Role Phone Elida Lance DO Primary Care Provider [phone] Reason for Visit * Reason Comments EMG Encounter Details Date Type Department Care Team (Late st Contact Info) Description 02/04/2024 2:20 PM EST NeuroDiagnostic Study Neurophysiology [facility] [address] [place] [address] Erin Garcia MD [address] [place] [address] Arrived Allergies Active Allergy Reactions Criticality Noted Date Comments Nsaids 02/01/2020 Hx gastric bypass Other Allergy (See Comments) Rash Medium 013 Dermabond prineo Penicillins 10/04/1999 Rash, last dose was in her 20's Sulfa Antibiotics 10/04/1999 Rash in her early 20's documented as of this encounter (statuses as of 02/04/2024) Medications MULTIVITAMINS PO CAPS one daily Active [...] 180 Tablet 3 11/28/2023 9:35 AM EDT 4 Active Lisinopril 2.5 MG Oral Tablet [...] 2 07/19/2023 8:50 AM EDT 4 Active Alendronate Sodium 70 MG Oral Tablet (Fosamax)Indicat ions:Osteoporosi s without current pathological fracture, unspecified osteoporosis type Take 1 Tablet by mouth once a week. APPOINTMENT NEEDED FOR FUTURE REFILLS. 12 Tablet 1 12/07/2023 10:10 AM EDT 4 Active Primidone 50 MG [...] 2 01/29/2024 9:33 AM EST 4 Active documented as of this encounter (statuses as of 02/04/2024) Active Problems Problem Noted Date Diagnosed Date Major depressive disorder, recurrent, in partial remission 12/27/2021 Generalized anxiety disorder 12/27/2021 S/P cervical spinal fusion 02/05/2020 DDD (degenerative disc disease), cervical 2017 Major depressive disorder, recurrent, moderate 0 06/14/2017 Memory changes 01/01/2017 Benign hypertension with CKD (chronic kidney disease) stage III 12/26/2016 Controlled substance agreement signed 04/08/2015 DDD (degenerative disc disease), lumbar 11/21/19 12 [place] Confirmation Research Other*[id number] 06/0 11/2009 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 B12 malabsorption s/p gastric bypass 07/14/2002 Allergic rhinitis 02/12/2002 Dyslipidemia, goal LDL below 130 12/04/2001 Chronic rhinitis HTN, goal below 140/90 Spinal stenosis, lumbar Spondylolisthesis documented as of this encounter (statuses as of 02/04/2024) Resolved Problems Problem Noted Date Diagnosed Date [...] as of this encounter (statuses as of 02/04/2024) Immunizations Name Administration Dates Next Due COVID-19 [...] documented in this encounter Progress Notes * Erin Garcia MD - 02/04/2024 3:10 PM EST [facility] Neurophysiology Department [place], [place] Test Date: 02/04/2024 Patient: Martha Lawson : 1960 Physician: Erin Garcia MD Sex: Female Height: 5' 1" Ref Phys: Chris Rea, DO ID#: [id number] Weight: 127 lbs. Manager Business Planning: Dejon Sánchez Patient Complaints: lumbar surgery 2011. In the post-op period there was numbness right lateral foot which has ascendedsomewhat up the right lateral calf. Some positional numbness left foot which resolves with changingposition. Patient History / Exam: Full le strength, absent ankle jerks, dec lt top and bottom of right foot Impression: There is evidence of a mild chronic but not active right S1 radiculopathy. There is no evidence of a left lumbosacral radiculopathy. There is no evidence of a large fiber sensory or motorpolyneuropathy. NCV & EMG Findings: The right peroneal distal motor latency amplitude and conduction velocities are normal. The right posterior tibial motor latency amplitude and conduction velocities are normal. Bilateral sural sensory responses are intact and are normal. EMG of the right lower extremity shows mild chronic but not active denervation in S1 innervated musculature. EMG of the left lower extremity is normal. Erin Garcia MD NCS+ Motor Nerve Results Latency Amplitude Segment Distance Velocity Min F-Lat Temperature Site (ms) Norm (mV) Norm cm m/s Norm (ms) Norm (°C) Right Fibular (with F) Ankle 3.7 < 6.7 3.3 > 2.0 Ankle-EDB 8.5 46.1 < 58.0 33.1 Bel Fib Head 9.5 - 2.7 - Bel Fib Head-Ankle 28 48 > 41 33.1 Pop Fossa 11.5 - 2.7 - Pop Fossa-Ankle 38 49 - 33.1 Pop Fossa-Bel Fib Head 10 50 - Right Tibial (with F) Ankle 4.0 < 6.2 7.6 > 4.0 Ankle-AHB 8 44.9 < 58.0 33.3 Pop Fossa 11.8 - 5.1 - Pop Fossa-Ankle 34 44 > 41 33.3 Motor Segments Delta-O Distance CV Segment (ms) (cm) (m/s) Norm Right Fibular (with F) Ankle-EDB 8.5 Bel Fib Head-Ankle 5.8 28 48 > 41 Pop Fossa-Ankle 7.8 38 49 - Pop Fossa-Bel Fib Head 2.0 10 50 - Right Tibial (with F) Ankle-AHB 8 Pop Fossa-Ankle 7.8 34 44 > 41 Sensory Nerve Results Latency (Peak) Amplitude ( O-P ) Segment Distance Temperature Site (ms) Norm (µV) Norm (cm) (°C) Left Sural Sensory Calf-Lat Mall 3.8 < 4.6 6 > 6 Calf-Lat Mall 14 32.9 Right Sural Sensory Calf 3.5 < 4.6 6 > 6 Calf-Lat Mall 14 32.2 EMG+ Side Muscle Root Ins Act Fibs Fasic Others Poly Dur Amp Recrt Activation Commt Right Vastus Lat L2-L4 NL 0 0 None 0 NL NL NL NL Right Tib Anterior L4-L5 NL 0 0 None 0 NL NL NL NL Right Gluteus Med L5-S1 NL 0 0 None 0 NL NL NL NL Right Gastroc MH S1-S2 NL 0 0 None 0 NL 2+ NL NL Right Biceps Fem LH L5-S2 NL 0 0 None 0 NL NL NL NL Left Vastus Lat L2-L4 NL 0 0 None 0 NL NL NL NL Left Tib Anterior L4-L5 NL 0 0 None 0 NL NL NL NL Left Gluteus Med L5-S1 NL 0 0 None 0 NL NL NL NL Left Gastroc MH S1-S2 NL 0 0 None 0 NL NL NL NL Left Biceps Fem LH L5-S2 NL 0 0 None 0 NL NL NL NL documented in this encounter Plan of Treatment Upcoming Encounters Date Type Department Care Team (Late st Contact Info) Description 02/17/2024 2:30 PM EST Telemedicine Psychology Jamal Silva [address] [place] [address] Roly Miller, AUTOMATIC SERGING MACHINE OPERATOR [address] [place] [address] 03/16/2024 2:30 PM EST Telemedicine Psychiatry, [address] [place] [address] Brooke Deluca, ANEUDY [address] [place] [address] 03/30/2024 1:30 PM EST Imaging Radiology, [facility] [address] [facility] [place] [address] 04/02/2024 11:25 AM EST Office Visit Interventional Pain Center, [facility] [address] [facility] [place] [address] Chris Rea, DO [address] [facility] [place] [phone] 04/03/2024 12:10 PM EST Office Visit Family Practice, [facility] [address] [place] [address] Elida Lance, [address] [facility] [address] 10/07/2024 2:40 PM EDT Telemedicine Endocrinology [address] [place] [address] Daniel Franco MD [address] [facility] [place] [id number] 10/15/2024 3:30 PM EDT Office Visit Neurology [facility] [address] [place] [address] Mariya Harding PA-C [address] [facility] [place] [address] 02/03/2026 2:20 PM EST Office Visit Dermatology, [address] [address] Yessi Morton PA-C [address] [place] [address] [place] [phone] Health Maintenance Due Date Last Done Comments [...] Additional history exists CKD HGB USE SMARTSET 31247 10/02/202410/02, 08/14/2022, 03/16/2022, Additional history exists CKD PHOS USE SMARTSET 37987 10/17/202410/02, 03/16/2022, 02/09/2021, Additional history exists Depression [...] this encounter Medical Devices Implanted Type Area Easement Man Device Identifier Shelf Expiration Date Model / Serial / Lot Graft Infuse Bone Sm [id number] - [id number] Implanted:Qt y: 1 on 02/22/2012 at OR [facility] N/A: Spine Lumbar MEDTRONIC : NEUROLOGIC PAIN 08/01/2014 [id number] / / [id number] Screw 6x45 Poly Si [id number] - [id number] Implanted:Qt y: 2 on 02/22/2012 at OR [facility] N/A: Spine Lumbar JNJ : ETHICON CARDIOVATIONS [id number] / / Screw 7x35 Poly Si [id number] - [id number] Implanted:Qt y: 2 on 02/22/2012 at OR [facility] N/A: Spine Lumbar JNJ : ETHICON CARDIOVATIONS [id number] / / Asif 5.5x55 Ti Prbnt [id number] - [id number] Implanted:Qt y: 2 on 02/22/2012 at OR [facility] N/A: Spine Lumbar JNJ : DEPUY SPINE [id number] / / Screw Set Sng Inner [id number] - [id number] Implanted:Qt y: 4 on 02/22/2012 at OR [facility] N/A: Spine Lumbar JNJ : DEPUY SPINE [id number] / / Cage 28x8 Leopard [id number] - [id number] Implanted:Qt y: 1 on 02/22/2012 at OR [facility] N/A: Spine Lumbar JNJ : ETHICON CARDIOVATIONS [id number] / / Implant Brst Mod Cls Pro 360cc - [id number] Implanted:Qt y: 1 on 11/12/2012 at OR [facility] Right: Breast MENTOR KRISSY 09/11/2017 [id number] / [id number] / [id number] Implant Brst Mod Cls Pro 360cc - [id number] Implanted:Qt y: 1 on 11/12/2012 at OR [facility] Left: Breast MENTOR KRISSY 08/12/2017 [facility]-[id number] / [id number] / [id number] 4.0 X 14 Variable Self Starting Screw Implanted:Qt y: 4 on 02/05/2020 by Luis Eduardo Ross MD at OR [facility] N/A: Spine Cervical KWADWO [id number] / / 1 Level 20mm [place] View Plate Implanted:Qt y: 1 on 02/05/2020 by Luis Eduardo Ross MD at OR [facility] N/A: Spine Cervical KWADWO [id number] / / [id number] Alcutian Implanted:Qt y: 1 on 02/05/2020 by Luis Eduardo Rsos MD at OR [facility] N/A: Spine Cervical KWADWO [id number] / / Description:alctuian cage 2.5cc Vitoss Bimodal Foam Pack Implanted:Qt y: 1 on 02/05/2020 by Luis Eduardo Ross MD at OR [facility] N/A: Spine Cervical KWADWO [id number] 11/29/2020 [id number] / [id number] / [id number] Sling Desara One - [id number] Implanted:Qt y: 1 on 08/31/2022 by Chico Perry MD at OR [facility] N/A: Vagina [employer] 08/10/2023 [id number] / / [id number] documented as of this encounter Visit Diagnoses Diagnosis Lumbosacral radiculopathy at S1- Primary Thoracic or lumbosacral neuritis or radiculitis, unspecified documented in this encounter Advance Directives * [...] consensually agreed upon. Care Teams Director Of Strategic Marketing Relationship Specialty Start Date End Date Elida Lance DO [address] [place] [id number] PCP - General Family Medicine 11/03/19 documented as of this encounter
--- OUTSIDE RECORDS SUMMARY | 2024-06-26 12:55 | External Medical Summary | Summary of Care ---
Author Name Unknown Organization [facility] Address [address] [facility] [place] [address] Phone [phone] Care Team Providers Care Hadoop Software Engineer Name Role Phone Elida Lance DO Primary Care Provider Reason for Visit * Reason Comments Follow Up Anxiety Depression * - Authorized Specialty Diagnoses / Procedures Referred By Traci rizzo Referred To Contact Referral ID Status Reason Start Date Expiration Date V isits Requested Visits Authorized [id number] Authorized 11/03/2023 11/01/2024 999 999 Encounter Details Date Type Department Care Team (Late st Contact Info) Description 02/17/2024 2:30 PM EST Telemedicine Psychology Jamal Silva [address] [place] [address] Roly Miller, ELEVATOR CONSTRUCTOR HELPER [address] [place] [address] Borderline personality disorder (HCC)* Allergies Active [...] disease), lumbar 11/21/19 12 [place] Confirmation Research Other*[id number] /11/2009 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 B12 malabsorption [...] mRNA, LNP-s, No Pre serve, 2-Dose Series ([employer]) 12/08/2020,11/17/2020 Pneumococcal Conjugate Vacc, 13 Valent [...] No 10/23/2023 Does the household have a [facility] source of income? (Household - for ages [...] this encounter Progress Notes * Roly Miller, ELEVATOR CONSTRUCTOR HELPER - 02/17/2024 2:09 PM EST Patient location: HOME. I was not in a hospital or clinic location. After connecting through televideo, patient was verified with two unique identifiers. 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 Methods to assure confidentiality were taken. Patient acknowledged consent and understandingof privacy and security of the Telemedicine visit. The patient agreed to participate. Start Time: 2:09 pm Stop Time: 2:47 pm Total direct time: 38 minutes BEHAVIORAL MEDICINE RETURN VISIT PROGRESS NOTE Psychology [address], Jamal [address] [place] [facility] [address] 02/17/2024 2:09 PM TYPE OF VISIT: Individual DIAGNOSIS: Borderline personality disorder (HCC) (Primary) REASON FOR SESSION: Individual therapy Session #: 21 SESSION FOCUS: depression and anxiety NOTES: Therapist met with patient to complete an individual session. Patient processed depression and anxiety. Patient denied any SI/HI. Patient Patient denied any self-harm. Patient reported she got her car back from her son. Patient reported she has been doing pretty good. Patient reported she had a good Thanksgiving and stated, "I actually was hungry for the food and took home a couple day of food I enjoyed". Patient reported that being said, she is not hungry at all.Patient reported once she eats she keeps eating on a regular basis, every couple of hours. Patient identified she can pinpoint her lack of appetite to [id number], when prepping for a colonoscopy. The patient reported as a consequence, the patient reported consistent weight loss since that point. The patient reported she plans to tell her primary care physician after the holidays. Patient reported she decorated on Saturday for Iglesia with her two grandchildren. Patient reported she is going to her stepmom's house for Iglesia. Patient reported this the poorest she has ever been, which the patient attributed to increased prices, inflation. Patient and therapist identified the following strengths [...] of anxietysince the last session with this marketing underwriter. Goal: Improved self-management of depression and [...] (KATE-7): 2 (Minimal 0-4) C-SSRS administered: Yes [place] Suicide Severity Rating Scale Results 02/17/2024 14:17 [place] SUICIDE SEVERITY RATING SCALE (C-SSRS) Have [...] same as last session (see note dated 01/27/2024 for further details) Safety Plan: Crisis Plan [...] Professional Resources: 1. Local Crisis Services: For [facility] -Crisis Services 2. [facility] Division of Psychiatry: [phone] 3. National Suicide Prevention Lifeline: or 014 4. National Crisis Text Line: Text HOME to 302315 5. 911 or proceed to the nearest [...] the event of a crisis: Family Member: medardomom Additional resources I can utilize if the previous steps are ineffective (e.g: ED, hotlines): Suicide and Crisis [facility] - [address] [place] [address] Crisis Contact Kimberly [facility] -Crisis Services, and Clinic number: [phone] and Suicide Safety Plan Signature Obtained on [...] clinical assessment: PHQ-9 Adult Data KATE-7 Data [place] Suicide Screen Data Discharge Discussed with patient: Patient continues to need treatment Collaboration of Care: Yes, provider within [facility], information is shared automatically in medical record Is this the patients' initial treatment plan? No FOLLOW-UP PLAN: Return: 3 weeks Appointment: 03/13/24 at 1:30 pm Action Plan: 1. Continue Cognitive Behavioral Therapy 2. Continue medication management with ANEUDY Maciel Treatment plan reviewed with the patient. Patient voices understanding and concurs with plan. PATIENT EDUCATION: Verbal & written Roly Miller LCSW Division of Psychiatry & Behavioral Medicine [facility] [phone] [place] Suicide Prevention Lifeline : 988 Crisis Textline : Text "HOME" to 794961 to connect with a crisis counselor Crisis Numbers by [facility]: Java [facility] Services - Emergency Services [facility] (8-7-YOU CAN) resolve Crisis Network Han & Fadumo . The Open Door - Crisis Intervention Mcintosh [facility] Crisis Help-Line [facility] Sidney & Lois [facility] - Crisis Intervention Services [place] Service Access [employer], [employer]. - Crisis Intervention Elton Choose [address] of Middle School Sports Coach Carline Lopez & Zeeshan Crisis Intervention [facility] - Mental Health Crisis [facility] - Crisis Intervention [place] [facility] - Crisis Intervention Jonathan Whitehead Potter - Crisis Line Matthias [place] - Mental Health Crisis Hotline Kimberly [facility] - Crisis Services [facility] Crisis Center [place]ress Service Access [employer], [employer]. - Crisis Intervention Krysten - Mental Health Crisis Intervention Services [place] [facility] [place] MH/ID Program [facility], [place], [place] - Crisis System [place] [facility] Human Services - Crisis Hotline [place] Chanel Lopez (7-361-871-HELP) [facility] - Crisis Intervention [facility] - Crisis Intervention Services [place] [facility] - Crisis Services Toni [facility] Health - Crisis Center [place] [phone] [facility] - Crisis Hotline Radha (8:30 am-5:00 pm) OR (after 5:00 pm, weekends & holidays) Maldonado [facility] Crisis Intervention Program [place] [facility] Mental Health Crisis Line Alison Newton and Sandra - [facility] Crisis Tunde & Brittni [facility] - Crisis Intervention [place] [facility] - Mental Health Crisis Service [facility] - Crisis Intervention [facility] - Crisis Intervention Patrick & Kallie [facility] [place] - Help Line [facility] [place] MH/ID Program [facility] - Crisis Intervention [place] [facility] - Crisis Intervention [place] [facility], [facility] - Crisis Intervention [place] [facility] Health - Emergency Services Palmyra [facility] - Crisis Line [place] - DBHIDS - Suicide and Crisis Intervention Hotline [facility] - Crisis/ Emergency Services [place] [facility] - Emergency Contact Line [facility] - Crisis Line Hardy ext. 1 [facility] Human Services [facility] Action - Crisis Intervention Hotline [place] [facility] Crisis Intervention Services documented in this encounter Plan of Treatment Upcoming Encounters Date Type Department Care Team (Late st Contact Info) Description 03/13/2024 1:30 PM EST Telemedicine Psychology, [place] [address] [place] [address] Roly Miller, BOUCHRA [address] [place] [address] 03/16/2024 2:30 PM EST Telemedicine Psychiatry, [place] [address] [place] [phone] Brooke Deluca CRNP [address] [place] [address] 03/30/2024 1:30 PM EST Imaging Radiology [facility] [address] [place] [phone] 04/02/2024 11:25 AM EST Office Visit Interventional Pain Center, [facility] [address] [facility] [place] [address] Chris Rea, DO [address] [place] [address] 04/03/2024 12:10 PM EST Office Visit [facility] [address] [place] [phone] Elida Lance, DO [address] [place] [address] 10/07/2024 2:40 PM EDT Telemedicine Endocrinology Jam[address] [place] [address] Daniel Franco MD [address] [place] [address] 10/15/2024 3:30 PM EDT Office Visit Neurology [facility] [address] [place] [address] Mariya Harding PARosalia [address] [place] [address] 02/03/2026 2:20 PM EST Office Visit Dermatology, [address] [place] [address] Yessi Morton PA-C [address] [place] [address] [place] [phone] Health Maintenance Due Date Last Done Comments [...] Additional history exists CKD HGB USE SMARTSET 95447 10/02/202410/02, 08/14/2022, 03/16/2022, Additional history exists CKD PHOS USE SMARTSET 97190 10/17/2024 08/08/2023, 03/16/2022, 02/09/2021, Additional history exists [...] this encounter Medical Devices Implanted Type Area Medicaid Nurse Device Identifier Shelf Expiration Date Model / Serial / Lot Graft Infuse Bone Sm [id number] - [id number] Implanted:Qt y: 1 on 02/22/2012 at [facility] N/A: Spine Lumbar [employer] : NEUROLOGIC PAIN 08/01/2014 [id number] / / [id number] Screw 6x45 Poly Si [id number] - [id number] Implanted:Qt y: 2 on 02/22/2012 at OR [facility] N/A: Spine Lumbar JNJ : ETHICON CARDIOVATIONS [id number] / / Screw 7x35 Poly Si [id number] - [id number] Implanted:Qt y: 2 on 02/22/2012 at [place] [facility] N/A: Spine Lumbar JNJ : ETHICON CARDIOVATIONS [id number] / / Asif 5.5x55 Ti Prbnt [id number] - [id number] Implanted:Qt y: 2 on 02/22/2012 at [place] [facility] N/A: Spine Lumbar JNJ : DEPUY SPINE [id number] / / Screw Set Sng Inner [id number] - [id number] Implanted:Qt y: 4 on 02/22/2012 at OR [facility] N/A: Spine Lumbar JNJ : DEPUY SPINE [id number] / / Cage 28x8 Leopard [id number] - [id number] Implanted:Qt y: 1 on 02/22/2012 at OR [facility] N/A: Spine Lumbar JNJ : ETHICON CARDIOVATIONS [id number] / / Implant Brst Mod Cls Pro 360cc - [id number] Implanted:Qt y: 1 on 11/12/2012 at OR [facility] Right: Breast MENTOR KRISSY 09/11/2017 [id number] / [id number] / [id number] Implant Brst Mod Cls Pro 360cc - [id number] Implanted:Qt y: 1 on 11/12/2012 at [place] [facility] Left: Breast MENTOR KRISSY 08/12/2017 350-7360 / [id number] / [id number] 4.0 X 14 Variable Self Starting Screw Implanted:Qt y: 4 on 02/05/2020 by Luis Eduardo Ross MD at OR [facility] N/A: Spine Cervical KWADWO [id number] A / / 1 Level 20mm [place] View Plate Implanted:Qt y: 1 on 02/05/2020 by Luis Eduardo Ross MD at OR [facility] N/A: Spine Cervical KWADWO [id number] / / [id number] Alcutian Implanted:Qt y: 1 on 02/05/2020 by Luis Eduardo Ross MD at OR [facility] N/A: Spine Cervical KWADWO [id number] / / Description:alctuian cage 2.5cc Vitoss Bimodal Foam Pack Implanted:Qt y: 1 on 02/05/2020 by Luis Eduardo Ross MD at OR [facility] N/A: Spine Cervical KWADWO [id number] 11/29/2020 [id number] / [id number] / [id number] dina Donnelly One - [id number] Implanted:Qt y: 1 on 08/31/2022 by Chico Perry MD at OR [facility] N/A: Vagina [employer] 08/10/2023 [id number] / / [id number] documented as of this encounter Visit Diagnoses [...] and were consensually agreed upon. Care Teams Hadoop Software Engineer Relationship Specialty Start Date End Date Elida Lance DO [address] [place] [id number] PCP - General Family Medicine 11/03/19 documented as of this encounter
--- OUTSIDE RECORDS SUMMARY | 2024-06-26 12:55 | External Medical Summary | Summary of Care ---
Author Name Unknown Organization [facility] Address [address] [facility] [place] [address] Phone [phone] Care Team Providers Care Tool Filer Hand Name Role Phone Elida Lance DO Primary Care Provider Encounter Details Date Type Department Care Team (Late st Contact Info) Description 03/04/2024 Population Health External Data Unspecified Department Allergies Active Allergy Reactions Criticality Noted Date Comments Nsaids 02/01/2020 Hx gastric bypass Other Allergy (See Comments) Rash Medium 013 Dermabond prineo Penicillins 10/04/1999 Rash, last dose was in her 20's Sulfa Antibiotics 10/04/1999 Rash in her early 20's documented as of this encounter (statuses as of 03/04/2024) Medications MULTIVITAMINS PO CAPS one daily Active [...] as of this encounter (statuses as of 03/04/2024) Active Problems Problem Noted Date Diagnosed Date Major depressive disorder, recurrent, in partial remission 12/27/2021 Generalized anxiety disorder 12/27/2021 S/P cervical spinal fusion 02/05/2020 DDD (degenerative disc disease), cervical 2017 Major depressive disorder, recurrent, moderate 0 06/14/2017 Memory changes 01/01/2017 Benign hypertension with CKD (chronic kidney disease) stage III 12/26/2016 Controlled substance agreement signed 04/08/2015 DDD (degenerative disc disease), lumbar 11/21/19 12 [place] Confirmation Research Other*[id number] 06/0 11/2009 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 B12 malabsorption s/p gastric bypass 07/14/2002 Allergic rhinitis 02/12/2002 Dyslipidemia, goal LDL below 130 12/04/2001 Chronic rhinitis HTN, goal below 140/90 Spinal stenosis, lumbar Spondylolisthesis documented as of this encounter (statuses as of 03/04/2024) Resolved Problems Problem Noted Date Diagnosed Date [...] as of this encounter (statuses as of 03/04/2024) Immunizations Name Administration Dates Next Due COVID-19 mRNA, LNP-s, No Pre serve, 2-Dose Series (Graffle) 12/08/2020,11/17/2020 Pneumococcal Conjugate Vacc, 13 Valent (Prevnar) [...] Description 03/13/2024 1:30 PM EST Telemedicine Psychology, [address] [address] Roly Miller, COMPENSATION ADJUSTER [address] [place] [phone] 03/16/2024 2:30 PM EST Telemedicine Psychiatry, [address] [address] Brooke Deluca, ELEVATOR DISPATCHER [address] [place] [address] 03/30/2024 1:30 PM EST Imaging Radiology [facility] [address] [place] [phone] 04/02/2024 11:25 AM EST Office Visit Interventional Pain Center [facility] [address] [place] [phone] Chris Rea, DO [address] [place] [address] 04/03/2024 12:10 PM EST Office Visit Family [facility], [facility] [address] [place] [address] Elida Lance, DO [address] [place] [address] 10/07/2024 2:40 PM EDT Telemedicine Endocrinology [address] [place] [address] Daniel Franco MD [address] [place] [address] 10/15/2024 3:30 PM EDT Office Visit Neurology [facility] [address] [place] [address] Mariya Harding PA-C [address] [place] [address] 02/03/2026 2:20 PM EST Office Visit Dermatology, [facility] [address] [place] [address] Yessi Morton PA-C [address] [place] [address] [place] [address] Health Maintenance Due Date [...] Additional history exists CKD HGB USE SMARTSET 31379 10/02/202410/02, 08/14/2022, 03/16/2022, Additional history exists CKD PHOS USE SMARTSET 81677 10/17/202410/02, 03/16/2022, 02/09/2021, Additional history exists Depression [...] this encounter Medical Devices Implanted Type Area Digital Computer Systems Analyst Device Identifier Shelf Expiration Date Model / Serial / Lot Graft Infuse Bone Sm [id number] - [id number] Implanted:Qt y: 1 on 02/22/2012 [place] [facility] [place]: Spine Lumbar MED[employer]IC : NEUROLOGIC PAIN 08/01/2014 [id number] / / [id number] Screw 6x45 Poly Si [id number] - [id number] Implanted:Qt y: 2 on 02/22/2012 [place] [facility] [place]: Spine Lumbar JNJ : ETHICON [employer] [id number] / / Screw 7x35 Poly Si [id number] - [id number] Implanted:Qt y: 2 on 02/22/2012 at [place] [facility] [place]A: Spine Lumbar JNJ : ETHICON CARD[employer]ATIONS [id number] / / Asif 5.5x55 Ti Prbnt [id number] - [id number] Implanted:Qt y: 2 on 02/22/2012 at [place] [facility] [place]A: Spine Lumbar JNJ : DEPUY SPINE [id number] / / Screw Set Sng Inner [id number] - [id number] Implanted:Qt y: 4 on 02/22/2012 at [place] [facility] [place] N/A: Spine Lumbar JNJ : DEPUY SPINE [id number] / / Cage 28x8 Leopard [id number] - [id number] Implanted:Qt y: 1 on 02/22/2012 at [place] [facility] [place]/A: Spine Lumbar JNJ : ETHICON C[employer]ATIONS [id number] / / Implant Brst Mod Cls Pro 360cc - [id number] Implanted:Qt y: 1 on 11/12/2012 at [place] [facility] [place] Right: Breast MENTOR KRISSY 09/11/2017 [id number] / [id number] / [id number] Implant Brst Mod Cls Pro 360cc - [id number] Implanted:Qt y: 1 on 11/12/2012 at [place] [facility] [place] Left: Breast MENTOR KRISSY 08/12/2017 [facility]-7360 / [id number] / [id number] 4.0 X 14 Variable Self Starting Screw Implanted:Qt y: 4 on 02/05/2020 by Luis Eduardo Ross MD at OR [facility] N/A: Spine Cervical KWADWO [id number] / / 1 Level 20mm Calmar View Plate Implanted:Qt y: 1 on 02/05/2020 by Luis Eduardo Ross MD at OR [facility] N/A: Spine Cervical KWADWO [id number] / / [id number] [id number] Alcutian Implanted:Qt y: 1 on 02/05/2020 by Luis Eduardo Rsos MD at OR [facility] N/A: Spine Cervical KWADWO [id number] / / Description:alctuian cage 2.5cc Vitoss Bimodal Foam Pack Implanted:Qt y: 1 on 02/05/2020 by Luis Eduardo Ross MD at OR [facility] N/A: Spine Cervical KWADWO [id number] 11/29/2020 3793-1152 / [id number] / [id number] Sling Desara One - [id number] Implanted:Qt y: 1 on 08/31/2022 by Chico Perry MD at [place] [facility] N/A: Vagina [employer] 08/10/2023 LEATHA-[id number] / / [id number] documented as of this encounter Advance Directives [...] and were consensually agreed upon. Care Teams Tool Filer Hand Relationship Specialty Start Date End Date Elida Lance DO PCP - General Family Medicine 11/03/19 documented as of this encounter
--- OUTSIDE RECORDS SUMMARY | 2024-06-26 12:55 | External Medical Summary | Summary of Care ---
Author Name Unknown Organization [facility] Address [address] [place] [address] Phone [phone] Care Team Providers Care Street Light Repairer Name Role Phone Elida Lance DO Primary Care Provider Encounter Details Date Type Department Care Team (Latest Contact Info) Description 01/28/2024 3:33 PM EST - 01/28/2024 11:59 PM EST Hospital Encounter Radiology Film File [address] [place] [address] Arrived Discharge Disposition: Home - Self Care Allergies Active Allergy Reactions Criticality Noted Date Comments Nsaids 02/01/2020 Hx gastric bypass Other Allergy (See Comments) Rash Medium 013 Dermabond prineo Penicillins 10/04/1999 Rash, last dose was in her 20's Sulfa Antibiotics 10/04/1999 Rash in her early 20's documented as of this encounter (statuses as of 01/29/2024) Medications MULTIVITAMINS PO CAPS one daily Active [...] MOUTH EVERY DAY 100 Tablet 1 4 05/08/19 25 Active oxyBUTYnin Chloride ER 15 MG [...] as of this encounter (statuses as of 01/29/2024) Active Problems Problem Noted Date Diagnosed Date Major depressive disorder, recurrent, in partial remission 12/27/2021 Generalized anxiety disorder 12/27/2021 S/P cervical spinal fusion 02/05/2020 DDD (degenerative disc disease), cervical 2017 Major depressive disorder, recurrent, moderate 0 06/14/2017 Memory changes 01/01/2017 Benign hypertension with CKD (chronic kidney disease) stage III 12/26/2016 Controlled substance agreement signed 04/08/2015 DDD (degenerative disc disease), lumbar 11/21/19 12 [place] Confirmation Research Other*[id number] 11/2009 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 B12 malabsorption s/p gastric bypass 07/14/2002 Allergic rhinitis 02/12/2002 Dyslipidemia, goal LDL below 130 12/04/2001 Chronic rhinitis HTN, goal below 140/90 Spinal stenosis, lumbar Spondylolisthesis documented as of this encounter (statuses as of 01/29/2024) Resolved Problems Problem Noted Date Diagnosed Date [...] as of this encounter (statuses as of 01/29/2024) Immunizations Name Administration Dates Next Due COVID-19 mRNA, LNP-s, No Pre serve, 2-Dose Series ([employer]s) 12/08/2020,11/17/2020 Pneumococcal Conjugate Vacc, 13 Valent (Prevnar) [...] 02/04/2024 2:20 PM EST NeuroDiagnostic Study Neurophysiology Nina [place] [address] [place] [address] Erin Garcia MD [address] [place] [address] 02/17/2024 2:30 PM EST Telemedicine Psychology Jamal Silva [address] [place] [address] Roly Miller, GROUP RESERVATIONS COORDINATOR [address] [place] [address] 03/16/2024 2:30 PM EST Telemedicine Psychiatry, [place] [address] [place] [address] Brooke Deluca CRNP [address] [place] [address] 03/30/2024 1:30 PM EST Imaging Radiology, [facility] [address] [facility] [place] [address] 04/02/2024 11:25 AM EST Office Visit Interventional Pain Center, [facility] [address] [place] [address] Chris Rea, DO [address] [facility] [place] [phone] 04/03/2024 12:10 PM EST Office Visit [facility] [address] [place] [phone] Elida Lance, DO [address] [place] [address] 10/07/2024 2:40 PM EDT Telemedicine Endocrinology [address] [place] [address] Daniel Franco MD [address] [place] [phone] 10/15/2024 3:30 PM EDT Office Visit Neurology [facility] [address] [facility] [place] [address] Mariya Harding PA-C [address] [place] [address] 02/03/2026 2:20 PM EST Office Visit Dermatology, [address] [place] [address] Yessi Morton PA-C [address] [place] [address] [place] [phone] Health Maintenance Due Date Last Done Comments [...] Additional history exists CKD HGB USE SMARTSET 52088 10/02/202410/02, 08/14/2022, 03/16/2022, Additional history exists CKD PHOS USE SMARTSET 53884 10/17/202410/02, 03/16/2022, 02/09/2021, Additional history exists Depression [...] this encounter Medical Devices Implanted Type Area Shop Laborer Device Identifier Shelf Expiration Date Model / Serial / Lot Graft Infuse Bone Sm [id number] - [id number] Implanted:Qt y: 1 on 02/22/2012 at OR [facility] [place] N/A: Spine Lumbar [employer] : NEUROLOGIC PAIN 08/01/2014 [id number] / / [id number] Screw 6x45 Poly Si [id number] - [id number] Implanted:Qt y: 2 on 02/22/2012 at OR [facility] [place] N/A: Spine Lumbar JNJ : ETHICON CARDIOVATIONS [id number] / / Screw 7x35 Poly Si [id number] - [id number] Implanted:Qt y: 2 on 02/22/2012 at OR [facility] [place] N/A: Spine Lumbar JNJ : ETHICON CARDI[employer]ATIONS [id number] / / Asif 5.5x55 Ti Prbnt [id number] - [id number] Implanted:Qt y: 2 on 02/22/2012 at OR [facility] [place] N/A: Spine Lumbar JNJ : DEPUY SPINE [id number] / / Screw Set Sng Inner [id number] - [id number] Implanted:Qt y: 4 on 02/22/2012 at OR [facility] [place] N/A: Spine Lumbar JNJ : DEPUY SPINE [id number] / / Cage 28x8 Leopard [id number] - [id number] Implanted:Qt y: 1 on 02/22/2012 at OR [facility] [place] N/A: Spine Lumbar JNJ : ETH[employer]ON [employer]ATIONS [id number] / / Implant Brst Mod Cls Pro 360cc - [id number] Implanted:Qt y: 1 on 11/12/2012 at OR [facility] [place] Right: Breast MENTOR KRISSY 09/11/2017 350-7360 / [id number] / [id number] Implant Brst Mod Cls Pro 360cc - [id number] Implanted:Qt y: 1 on 11/12/2012 at OR [facility] [place] Left: Breast MENTOR KRISSY 08/12/2017 350-7360 / [id number] / [id number] 4.0 X 14 Variable Self Starting Screw Implanted:Qt y: 4 on 02/05/2020 by Luis Eduardo Ross MD at OR [facility] N/A: Spine Cervical KWADWO [id number] / / 1 Level 20mm Appling View Plate Implanted:Qt y: 1 on 02/05/2020 by Luis Eduardo Ross MD at OR [facility] N/A: Spine Cervical KWADWO [id number] / / [id number] Alcutian Implanted:Qt y: 1 on 02/05/2020 by Luis Eduardo Ross MD at OR [facility] N/A: Spine Cervical KWADWO [id number] / / Description:alctuian cage 2.5cc Vitoss Bimodal Foam Pack Implanted:Qt y: 1 on 02/05/2020 by Luis Eduardo Ross MD at OR [facility] N/A: Spine Cervical KWADWO [id number] 11/29/2020 9748-9217 / [id number] / [id number] [facility] Andrzej One - [id number] Implanted:Qt y: 1 on 08/31/2022 by Chico Perry MD at OR [facility] N/A: Vagina [employer] 08/10/2023 [id number] / / [id number] documented as of this encounter Procedures Procedure [...] by a [facility] radiologist. Yessi Morton PA-C RADIOLOGY ([facility] ) Final Result documented in this encounter Advance Directives * [...] and were consensually agreed upon. Care Teams Street Light Repairer Relationship Specialty Start Date End Date Elida Lance DO [address] [place] [address] PCP - General Family Medicine 11/03/19 documented as of this encounter
--- OUTSIDE RECORDS SUMMARY | 2024-06-26 12:56 | External Medical Summary | Summary of Care ---
Author Name Unknown Organization [facility] Address [address] [facility] [place] [address] Phone [phone] Care Team Providers Care Six Color Press Operator Name Role Phone Elida Lance DO Primary Care Provider Reason for Visit * Reason Comments Follow Up Anxiety Depression * - Authorized Specialty Diagnoses / Procedures Referred By Traci rizzo Referred To Contact Referral ID Status Reason Start Date Expiration Date V isits Requested Visits Authorized [id number] Authorized 11/03/2023 11/01/2024 [id number] Encounter Details Date Type Department Care Team (Late st Contact Info) Description 01/27/2024 12:30 PM EST Telemedicine Psychology Jamal Silva [address] [place] [address] Roly Miller, FIRE CONTROLMAN [address] [place] [address] Borderline personality disorder (HCC)* Allergies Active Allergy Reactions Criticality Noted Date Comments Nsaids 02/01/2020 Hx gastric bypass Other Allergy (See Comments) Rash Medium 013 Dermabond prineo Penicillins 10/04/1999 Rash, last dose was in her 20's Sulfa Antibiotics 10/04/1999 Rash in her early 20's documented as of this encounter (statuses as of 01/27/2024) Medications MULTIVITAMINS PO CAPS one daily Active [...] MOUTH EVERY DAY 100 Tablet 1 4 04/16/19 25 Active oxyBUTYnin Chloride ER 15 MG [...] 2 01/09/2024 2:03 PM EST 4 Active Pregabalin 50 MG Oral Capsule (Lyrica) Take 1 capsule by mouth at night for 5 days then increase to 1 capsule twice daily. 60 Capsule 3 01/09/2024 4:06 PM EST 4 Active traZODone HCl 150 MG Oral Tablet (Desyrel) Take 1 Tablet by mouth at bedtime. 90 Tablet 1 01/16/2024 6:22 PM EST 4 Active Metoprolol Tartrate 25 MG Oral Tablet (Lopressor)Indic ations:HTN, goal below 140/90 TAKE ONE-HALF TABLET BY MOUTH IN THE MORNING AND ONE-HALF TABLET BEFORE BEDTIME 90 Tablet 2 4 Active documented as of this encounter (statuses as of 01/27/2024) Active Problems Problem Noted Date Diagnosed Date [...] disease), lumbar 11/21/19 12 [facility] [employer] Other*[id number] 11/2009 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 B12 malabsorption s/p gastric bypass 07/14/2002 Allergic rhinitis 02/12/2002 Dyslipidemia, goal LDL below 130 12/04/2001 Chronic rhinitis HTN, goal below 140/90 Spinal stenosis, lumbar Spondylolisthesis documented as of this encounter (statuses as of 01/27/2024) Resolved Problems Problem Noted Date Diagnosed Date [...] as of this encounter (statuses as of 01/27/2024) Immunizations Name Administration Dates Next Due COVID-19 [...] PM EDT Asif, Ma luis, RN documented as of this encounter Mental Status * Because of a physical, mental, or emotional condition, do you have serious difficulty concentrating, remembering, or making decisions? (5 years old or older) Answer Entry Date Author No 08/14/2013 3:36 PM EDT Tarik Gold, RN documented in this encounter Progress Notes * Roly Miller, FIRE CONTROLMAN - 01/27/2024 12:10 PM EST Patient location: HOME. I was not in a hospital or clinic location. After connecting through [employer], patient was verified with two unique identifiers. Patient (or authorized legal training representative) was then informed that this was [...] PROGRESS NOTE Psychology Jamal Silva [address] [place] [address] 01/27/2024 12:10 PM TYPE OF VISIT: Individual DIAGNOSIS: Borderline personality disorder (HCC) (Primary) REASON FOR SESSION: Individual therapy Session #: 20 SESSION FOCUS: depression and anxiety NOTES: Therapist met with patient to complete an individual session. Patient processed depression and anxiety. Patient denied any SI/HI. Patient Patient denied any self-harm. Patient stated, "Everything is pretty much the same". Patient reported she wont arbitration hearing. Patient reiterated she is going to her [place] for Thanksgiving. Patient reported she is not [...] stated it's been, "Over a month". This typewriter tester provided psychoeducation on utilizing assertive communication when [...] anxiety since the last session with this typewriter tester. Goal: Improved self-management of depression and anxiety [...] (KATE-7): 2 (Minimal 0-4) C-SSRS administered: Yes [place] Suicide Severity Rating Scale Results 01/27/2024 12:11 [...] Professional Resources: 1. Local Crisis Services: For [facility] -Crisis Services 2. [facility] Division of Psychiatry: [phone] 3. National Suicide Prevention Lifeline: or 096 4. National Crisis Text Line: Text HOME to 521051 5. 911 or proceed to the nearest [...] the event of a crisis: Family Member: juan alberto Additional resources I can utilize if the previous steps are ineffective (e.g: ED, hotlines): [facility] [address] [place] [address] Crisis Contact [facility] -Crisis Services, and Clinic number: [phone] and Suicide Safety Plan Signature Obtained on [...] clinical assessment: PHQ-9 Adult Data KATE-7 Data [place] Suicide Screen Data Discharge Discussed with patient: Patient continues to need treatment Collaboration of Care: Yes, provider within [facility], information is shared automatically in [...] LCSW Division of Psychiatry & Behavioral Medicine [facility] [phone] National Suicide Prevention Lifeline : 988 Crisis Textline : Text "HOME" to 322404 to connect with a crisis counselor Crisis Numbers by County: [facility] - Emergency Services [facility] (0-119-1-YOU CAN) resolve Crisis Network Cinthya . The Open Door - Crisis Intervention [place] [facility] Crisis Help-Line [place] & [facility] - Crisis Intervention Services [facility] Service Access [employer]. - Crisis Intervention Brillion Choose option [address] [place] [address] of Racebook Writer Carline Lopez & Zeeshan Crisis Intervention [place] [facility] - Mental Health Crisis Yeung [facility] - Crisis Intervention [place] [facility] - Crisis Intervention Jonathan [facility] - Crisis Line Matthias Montes Barron - Mental Health Crisis Hotline Lewis [facility] - Crisis Services Onward [facility] Crisis Center [place] Service Access Just Sing It, QR Artist. - Crisis Intervention Krysten - Mental Health Crisis Intervention Services [place] [facility] MH/ID Program [facility] [place] [place] - Crisis System [place] [facility] Human Services - Crisis Hotline Staci (8-371-244-HELP) [facility] - Crisis Intervention Vasyl [facility] - Crisis Intervention Services [facility] - Crisis Services [place] [facility] - Crisis Center [place] [phone] [facility] - Crisis Hotline Radha (8:30 am-5:00 pm) OR (after 5:00 pm, weekends & holidays) Maldonado [facility] Crisis Intervention Program [place] [facility] Mental Health Crisis Line Lamar, Richardson and Sandra [facility] Crisis Tunde & Brittni [facility] - Crisis Intervention [place] [facility] Mental Health Crisis Service [place] [facility] Crisis Intervention [facility] - Crisis Intervention [place] & [place] [facility] - Help Line Ssm [facility] MH/ID Program [facility] - Crisis Intervention [place] [facility] - Crisis Intervention [place] [facility] Emergency Services, [facility] - Crisis Intervention [place] [facility] - Emergency Services Clarissa [facility] - Crisis Line [place] - DBHIDS - Suicide and Crisis Intervention Hotline [facility] - Crisis/ Emergency Services [facility] - Emergency Contact Line [place] [facility] - Crisis Line Hardy ext. 1 [facility] Action - Crisis Intervention Hotline [place] [facility] Crisis Intervention Services documented in this encounter Plan of Treatment Upcoming Encounters Date Type Department Care Team (Late st Contact Info) Description 01/28/2024 3:20 PM EST Office Visit D[facility]atology, [facility] [address] [facility] [place] [phone] Yessi Morton PA-C [address] [place] [address] [place] [address] 02/04/2024 2:20 PM EST NeuroDiagnostic Study Neurophysiology [facility] [address] [place] [address] Erin Garcia MD [address] [place] [address] 02/17/2024 2:30 PM EST Telemedicine Psychology [facility] [address] [place] [address] Roly Miller LCSW [address] [place] [address] 03/16/2024 2:30 PM EST Telemedicine Psychiatry, [address] [place] [address] Brooke Deluca CRNP [address] [place] [address] 03/30/2024 1:30 PM EST Imaging Radiology, [address] [place] [address] 04/02/2024 11:25 AM EST Office Visit Interventional Pain Center, [facility] [address] [facility] [place] [address] Rona, Max Jethro, DO [address] [place] [phone] 04/03/2024 12:10 PM EST Office Visit [facility] [address] [facility] [place] [phone] Elida Lance, DO [address] [facility] [place] [address] 10/07/2024 2:40 PM EDT Telemedicine Endocrinology [address] [place] [address] Daniel Franco MD [address] [facility] [place] [address] 10/15/2024 3:30 PM EDT Office Visit Neurology [facility] [place] [address] [place] [address] Mariya Harding PA-C [address] [place] [address] Health Maintenance Due Date Last Done Comments [...] Additional history exists CKD HGB USE SMARTSET 16223 10/02/202410/02, 08/14/2022, 03/16/2022, Additional history exists CKD PHOS USE SMARTSET 07226 10/17/202410/02, 03/16/2022, 02/09/2021, Additional history exists Depression [...] this encounter Medical Devices Implanted Type Area Logistics Engineering Manager Device Identifier Shelf Expiration Date Model / Serial / Lot Graft Infuse Bone Sm [id number] - [id number] Implanted:Qt y: 1 on 02/22/2012 at [place] [facility] N/A: Spine Lumbar [employer] : NEUROLOGIC PAIN 08/01/2014 [id number] / / [id number] Screw 6x45 Poly Si [id number] - [id number] Implanted:Qt y: 2 on 02/22/2012 at [place] [facility] N/A: Spine Lumbar JNJ : [employer] [id number] / / Screw 7x35 Poly Si [id number] - [id number] Implanted:Qt y: 2 on 02/22/2012 at [place] [facility] N/A: Spine Lumbar JNJ : [employer] [id number] / / Asif 5.5x55 Ti Prbnt [id number] - [id number] Implanted:Qt y: 2 on 02/22/2012 at [place] [facility] N/A: Spine Lumbar JNJ : DEPU[employer] SPINE [id number] / / Screw Set Sng Inner - [id number] Implanted:Qt y: 4 on 02/22/2012 at [place] [facility] N/A: Spine Lumbar JNJ : DE[employer] SPINE [id number] / / Cage 28x8 Leopard [id number] - [id number] Implanted:Qt y: 1 on 02/22/2012 at [place] [facility] N/A: Spine Lumbar JNJ : [employer] [id number] / / Implant Brst Mod Cls Pro 360cc - [id number] Implanted:Qt y: 1 on 11/12/2012 at [place] [facility] Right: Breast MENTOR KRISSY 09/11/2017 [id number] / [id number] / [id number] Implant Brst Mod Cls Pro 360cc - [id number] Implanted:Qt y: 1 on 11/12/2012 at [place] [facility] Left: Breast MENT[employer] KRISSY 08/12/2017 [id number] / [id number] / [id number] 4.0 X 14 Variable Self Starting Screw Implanted:Qt y: 4 on 02/05/2020 by Luis Eduardo Ross MD at OR [facility] N/A: Spine Cervical KWADWO [id number] / / 1 Level 20mm [place] Plate Implanted:Qt y: 1 on 02/05/2020 by Luis Eduardo Ross MD at OR [facility] N/A: Spine Cervical KWADWO [id number] / / [id number] Alcutian Implanted:Qt y: 1 on 02/05/2020 by Luis Eduardo Ross MD at OR [facility] N/A: Spine Cervical KWADWO [id number] / / Description:alctuian cage 2.5cc Vitoss Bimodal Foam Pack Implanted:Qt y: 1 on 02/05/2020 by Luis Eduardo Ross MD at OR [facility] N/A: Spine Cervical KWADWO [id number] 11/29/2020 [id number] / [id number] / [id number] Rick Wall - [id number] Implanted:Qt y: 1 on 08/31/2022 by Chico Perry MD at OR [facility] N/A: Vagina [employer] 08/10/2023 [id number] / / [id number] documented as of this encounter Visit Diagnoses [...] and were consensually agreed upon. Care Teams Six Color Press Operator Relationship Specialty Start Date End Date Elida Lance DO [address] [place] [address] PCP - General Family Medicine 11/03/19 documented as of this encounter
--- OUTSIDE RECORDS SUMMARY | 2024-06-26 12:56 | External Medical Summary | Summary of Care ---
Author Name Unknown Organization [facility] Address [address] [facility] [place] [address] Phone [phone] Care Team Providers Care Lamination Technician Name Role Phone Elida Lance DO Primary Care Provider Reason for Visit * Reason Comments Follow Up Anxiety Depression * - Authorized Specialty Diagnoses / Procedures Referred By Traci rizzo Referred To Contact Referral ID Status Reason Start Date Expiration Date V isits Requested Visits Authorized [id number] Authorized 11/03/2023 11/01/2024 999 [id number] Encounter Details Date Type Department Care Team (Late st Contact Info) Description 01/27/2024 12:30 PM EST Telemedicine Psychology Jamal Silva [address] [place] [address] Roly Miller, LEARNING SERVICES COORDINATOR [address] [place] [address] Borderline personality disorder (HCC)* Allergies Active [...] disease), lumbar 11/21/19 12 [facility] Confirmation Research Other*[id number] 11/2009 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 B12 malabsorption [...] No 10/23/2023 Are you (or your family) arjnu eless or worried that you might be [...] this encounter Progress Notes * Roly Miller, LEARNING SERVICES COORDINATOR - 01/27/2024 12:10 PM EST Patient location: HOME. I was not in a hospital or clinic location. After connecting through [employer], patient was verified with two unique identifiers. Patient (or authorized legal statement services representative)was then informed that this was a Telemedicine visit and being conducted confidentially over securelines. Methods to assure confidentiality were taken. Patient acknowledged consent and understandingof privacy and security of the Telemedicine visit. The patient agreed to participate. Start Time: 12:10 pm Stop Time: 1:07 pm Total direct time: 57 minutes BEHAVIORAL MEDICINE RETURN VISIT PROGRESS NOTE Psychology Jamal Silva [address] [place] [address] 01/27/2024 12:10 PM TYPE OF VISIT: Individual [...] Patient reiterated she is going to her Paxer for Thanksgiving. Patient reported she is not [...] stated it's been, "Over a month". This copywriter provided psychoeducation on utilizing assertive communication when [...] anxiety since the last session with this copywriter. Goal: Improved self-management of depression and anxiety [...] (KATE-7): 2 (Minimal 0-4) C-SSRS administered: Yes [place] Suicide Severity Rating Scale Results 01/27/2024 12:11 [...] Professional Resources: 1. Local Crisis Services: For [facility] 2. [facility] Division of Psychiatry: [phone] 3. National Suicide Prevention Lifeline: or 239 4. National Crisis Text Line: Text HOME to 062582 5. 911 or proceed to the nearest [...] ineffective (e.g: ED, hotlines): Suicide and Crisis [facility] - [address] [place] [address] Crisis Contact [facility], and Clinic number: [phone] and Suicide Safety Plan Signature Obtained on [...] clinical assessment: PHQ-9 Adult Data KATE-7 Data [place] Suicide Screen Data Discharge Discussed with patient: Patient continues to need treatment Collaboration of Care: Yes, provider within [facility], information is shared automatically in medical record [...] LCSW Division of Psychiatry & Behavioral Medicine [facility] [phone] National Suicide Prevention Lifeline : 988 Crisis Textline : Text "HOME" to 339170 to connect with a crisis counselor Crisis Numbers by County: [facility] - Emergency Services [facility] (7-706-9-YOU CAN) resolve Crisis Network Cinthya . The Open Door - Crisis Intervention [place] [facility] Crisis Help-Line [place] & [place] [facility] - Crisis Intervention Services [facility] Service Access [employer]. - Crisis Intervention [place] Choose option [address] [place] [address] of Vocal Music Teacher Carline Lopez & Zeeshan Crisis Intervention [facility] - Mental Health Crisis Yeung [facility] - Crisis Intervention [facility] - Crisis Intervention Jonathan Whitehead [place] - Crisis Line Matthias Montes Beckham - Mental Health Crisis Hotline [facility] - Crisis Services [facility] Crisis Center [place] Service Access [employer], [employer]. - Crisis Intervention Krysten - Mental Health Crisis Intervention Services [place] [facility] MH/ID Program [facility] [place], [place] - Crisis System [place] [facility] Human Services - Crisis Hotline Staci (1-505-309-HELP) [facility] - Crisis Intervention Vasyl [facility] - Crisis Intervention Services [facility] - Crisis Services Toni Safe [facility] - Crisis Center [place] [phone] [facility] - Crisis Hotline Radha (8:30 am-5:00 pm) OR (after 5:00 pm, weekends & holidays) [facility] Crisis Intervention Program [place] [facility] Mental Health Crisis Line Lam[place], [place] and Sandra [facility] Crisis Tunde & Brittni [facility] - Crisis Intervention [facility] Mental Health Crisis Service [place] [facility] - Crisis Intervention [facility] - Crisis Intervention [place] & [place] [facility] - Help Line [facility] MH/ID Program [facility] - Crisis Intervention [place] [facility] - Crisis Intervention [facility] Emergency Services, [facility] - Crisis Intervention [place] [facility] Behavioral Health - Emergency Services [place] [facility] - Crisis Line [place] - DBHIDS - Suicide and Crisis Intervention Hotline [facility] - Crisis/ Emergency Services [place] [facility] - Emergency Contact Line [place] [facility] - Crisis Line Hardy ext. 1 [facility] Action - Crisis Intervention Hotline [place] [facility] Crisis Intervention Services documented in this encounter Plan of Treatment Upcoming Encounters Date Type Department Care Team (Late st Contact Info) Description 01/28/2024 3:20 PM EST Office Visit Dermatology, [place] [address] [facility] [phone] Yessi Morton PA-C [address] [place] [address] [place] [address] 02/04/2024 2:20 PM EST NeuroDiagnostic Study Neurophysiology [facility] [address] [place] [address] Erin Garcia MD [address] [place] [address] 02/17/2024 2:30 PM EST Telemedicine Psychology [facility] [address] [place] [address] Roly Miller LCSW [address] [place] [address] 03/16/2024 2:30 PM EST Telemedicine Psychiatry, [address] [place] [address] Brooke Deluca CRNP 9 [place] [address] 03/30/2024 1:30 PM EST Imaging Radiology, [address] [place] [address] 04/02/2024 11:25 AM EST Office Visit Interventional Pain Center, [facility] [address] [facility] [place] [address] Rona, Max Jethro, DO [address] [place] [phone] 04/03/2024 12:10 PM EST Office Visit [facility] [address] [facility] [place] [phone] Elida Lance, DO [address] [facility] [place] [address] 10/07/2024 2:40 PM EDT Telemedicine Endocrinology Jam[address] [place] [address] Daniel Franco MD [address] [facility] [place] [address] 10/15/2024 3:30 PM EDT Office Visit Neurology [facility] [place] [address] [place] [address] Mariya Harding PA-C [address] [place] [address] Health Maintenance Due Date Last Done Comments [...] Additional history exists CKD HGB USE SMARTSET 42243 10/02/202410/02, 08/14/2022, 03/16/2022, Additional history exists CKD PHOS USE SMARTSET 60596 10/17/202410/02, 03/16/2022, 02/09/2021, Additional history exists Depression [...] this encounter Medical Devices Implanted Type Area Academic Services Coordinator Device Identifier Shelf Expiration Date Model / Serial / Lot Graft Infuse Bone Sm [id number] - [id number] Implanted:Qt y: 1 on 02/22/2012 at [place] [facility] N/A: Spine Lumbar MEDTRONIC : NEUROLOGIC PAIN 08/01/2014 [id number] / / [id number] Screw 6x45 Poly Si [id number] - [id number] Implanted:Qt y: 2 on 02/22/2012 at OR [facility] N/A: Spine Lumbar JNJ : ETHICON CARDIOVATIONS [id number] / / Screw 7x35 Poly Si [id number] - [id number] Implanted:Qt y: 2 on 02/22/2012 at OR [facility] N/A: Spine Lumbar JNJ : ETHICON CARDIOVATIONS [id number] / / Asif 5.5x55 Ti Prbnt [id number] - [id number] Implanted:Qt y: 2 on 02/22/2012 at OR [facility] N/A: Spine Lumbar JNJ : DEPUY SPINE [id number] / / Screw Set Sng Inner - [id number] Implanted:Qt y: 4 on 02/22/2012 at OR [facility] N/A: Spine Lumbar JNJ : DEPUY SPINE [id number] / / Cage 28x8 Leopard [id number] - [id number] Implanted:Qt y: 1 on 02/22/2012 at OR [facility] N/A: Spine Lumbar JNJ : ETHICON CARDIOVATIONS [id number] / / Implant Brst Mod Cls Pro 360cc - [id number] Implanted:Qt y: 1 on 11/12/2012 at OR [facility] Right: Breast MENTOR KRISSY 09/11/2017 350-7360 / [id number] / [id number] Implant Brst Mod Cls Pro 360cc - [id number] Implanted:Qt y: 1 on 11/12/2012 at OR [facility] Left: Breast MENTOR KRISSY 08/12/2017 350-7360 / [id number] / [id number] 4.0 X 14 Variable Self Starting Screw Implanted:Qt y: 4 on 02/05/2020 by Luis Eduardo Ross MD at OR [facility] N/A: Spine Cervical KWADWO [id number] / / 1 Level 20mm [place] View Plate Implanted:Qt y: 1 on 02/05/2020 by Luis Eduardo Ross MD at OR [facility] N/A: Spine Cervical KWADWO [id number] / / [id number] [id number] Alcutian Implanted:Qt y: 1 on 02/05/2020 by Luis Eduardo Ross MD at OR [facility] N/A: Spine Cervical KWADWO [id number] / / Description:alctuian cage 2.5cc Vitoss Bimodal Foam Pack Implanted:Qt y: 1 on 02/05/2020 by Luis Eduardo Ross MD at OR [facility] N/A: Spine Cervical KWADWO [id number] 11/29/2020 9707-5337 / [id number] / [id number] Rick Wall - [id number] Implanted:Qt y: 1 on 08/31/2022 by Chico Perry MD at [facility] N/A: Vagina [employer] 08/10/2023 [id number]-[id number] / / [id number] documented as of this encounter Visit Diagnoses [...] and were consensually agreed upon. Care Teams Lamination Technician Relationship Specialty Start Date End Date Elida Lance DO [address] [place] [address] PCP - General Family Medicine 11/03/19 documented as of this encounter
--- OUTSIDE RECORDS SUMMARY | 2024-06-26 12:56 | External Medical Summary | Summary of Care ---
Author Name Unknown Organization [facility] Address [address] [facility] [place] [address] Phone [phone] Care Team Providers Care Store Stock Associate Name Role Phone Elida Lance DO Primary Care Provider [phone] Reason for Visit * Reason Comments NEW PATIENT New pt. Here for sebas quiñones skin exam. No specific areas of concern. * Evaluate & Treat - Unlimited Visits (Within 10 days (routine)) - Authorized Specialty Diagnoses / Procedures Referred By Traci rizzo Referred To Contact Dermatology Diagnoses Skin lesion Elida Lance DO [address] [place] [address] Phone: tel: fax: Referral ID Status Reason Start Date Expiration Date Visits Requested Visits Authorized [id number] Authorized Specialty Services Required 03/20/2023 999 999 Encounter Details Date Type Department Care Team (Late st Contact Info) Description 01/28/2024 3:20 PM EST Office Visit Dermatology[address] [place] [phone] Yessi Morton PA-C [address] [place] [address] [place] [address] Lentigines*; Skin exam, screening for cancer; Seborrheic [...] disease), lumbar 11/21/19 12 [facility] Confirmation Research Other*[id number] 11/2009 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 B12 malabsorption [...] zinc. Product examples; Think sport, Think baby, [place], Babo botanicals, [place] [employer] Campaignanicals, [place] baby. "Baby" products can be used [...] lesions, per pt. Previous SP providers seen. 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 REVIEW OF SYSTEMS: SKIN: No [...] NONE Reviewed, same day as visit, 6 [facility] Dermatology lab work(s)/pathology report(s) as well [...] at [place] [facility] risk obsity clinic [place] [facility] Pancreatitis Spinal stenosis, lumbar Spondylolisthesis FAMILY HISTORY: [...] glycopyrrolate (ROBINUL) inj Once PRN Tj Rincon INTER COM INSTALLER 0.6 mg at 02/22/12 1103 neostigmine methylsulfate (PROSTIGMIN) 1 MG/ML inj Once PRN Tj Rincon INTER COM INSTALLER 3 mg at 02/22/12 1103 ALLERGY: Other allergy (see comments), Nsaids, Penicillins, and Sulfa antibiotics OBJECT ZARI: GEN: alert, no distress, appears oriented, pleasant, and cooperative. SKIN: Detailed exam of hair, face including lids and lips, neck, chest, abdomen, back, bilateral upper ext. (arm, hand, fingers), bilateral lower ext. (leg, foot, toes), palpation of scalp, fingernails, toenail amharic present, inguinal areas, groin (mons pubis), buttocks, and anus completed: 1. Face/trunk/bilat arms and legs-Few well defined light to medium brown homogenous stellate macules. 2. Trunk-Very few scattered bright red to purple well defined 1-3mm macules and papules. 3. L scientologist/bilat arms and legs-Few sharply defined, variegated brown, [...] given reassurance. 3. Seborrheic/Benign Keratosis(-es) on L scientologist/bilat arms and legs-no tx needed, pt given [...] PM Dermatology, [place]oss [address] [place] [place] [address] documented in this encounter Nursing Notes * [...] 02/04/2024 2:20 PM EST NeuroDiagnostic Study Neurophysiology [facility] [place] [place] [address] [place] [address] Erin Garcia MD [address] [place] [address] 02/17/2024 2:30 PM EST Telemedicine Psychology Jamal Silva [address] [place] [address] Roly Miller, BOUCHRA 9 [place] [address] 03/16/2024 2:30 PM EST Telemedicine Psychiatry, [place] [address] [place] [address] Brooke Deluca CRNP [address] [place] [address] 03/30/2024 1:30 PM EST Imaging Radiology, [facility] [address] [facility] [place] [address] 04/02/2024 11:25 AM EST Office Visit Interventional Pain Center, [facility] [address] [facility] [address] Chris Rea, DO [address] [facility], [place] [address] 04/03/2024 12:10 PM EST Office Visit Family Practice, [facility] [address] [facility] [address] Elida Lance, [address] [place] [address] 10/07/2024 2:40 PM EDT Telemedicine Endocrinology Jam[address] [place] [address] Daniel Franco MD [address] [facility] [place] [address] 10/15/2024 3:30 PM EDT Office Visit Neurology [facility] [address] [place] [address] Mariya Harding PA-C [address] [place] [address] 02/03/2026 2:20 PM EST Office [facility], [facility] [address] [facility] [place] [address] Yessi Morton PA-C [address] [place] [address] [place] [address] Health Maintenance Due Date [...] Additional history exists CKD HGB USE SMARTSET 75057 10/02/202410/02, 08/14/2022, 03/16/2022, Additional history exists CKD PHOS USE SMARTSET 91776 10/17/202410/02, 03/16/2022, 02/09/2021, Additional history exists Depression [...] encounter Medical Devices Implanted Type Area Client Consultant Device Identifier Shelf Expiration Date Model / Serial / Lot Graft Infuse Bone Sm [id number] - [id number] Implanted:Qt y: 1 on 02/22/2012 at [place] [facility] N/A: Spine Lumbar MED[employer] : NEUROLOGIC PAIN 08/01/2014 [id number] / / [id number] Screw 6x45 Poly Si [id number] - [id number] Implanted:Qt y: 2 on 02/22/2012 at [place] [facility] N/A: Spine Lumbar JNJ : ETHICON CARDIOVATIONS [id number] / / Screw 7x35 Poly Si [id number] - [id number] Implanted:Qt y: 2 on 02/22/2012 at [place] [facility] N/A: Spine Lumbar JNJ : ETHICON CARDIOVATIONS [id number] / / Asif 5.5x55 Ti Prbnt [id number] - [id number] Implanted:Qt y: 2 on 02/22/2012 at [place] [facility] N/A: Spine Lumbar JNJ : DEPUY SPINE [id number] / / Screw Set Sng Inner [id number] - [id number] Implanted:Qt y: 4 on 02/22/2012 at [place] [facility] N/A: Spine Lumbar JNJ : DEPUY SPINE [id number] / / Cage 28x8 Leopard [id number] - [id number] Implanted:Qt y: 1 on 02/22/2012 at [place] [facility] N/A: Spine Lumbar JNJ : ETHICON CARDIOVATIONS [id number] / / Implant Brst Mod Cls Pro 360cc - [id number] Implanted:Qt y: 1 on 11/12/2012 at [place] [facility] Right: Breast MENTOR KRISSY 09/11/2017 [facility]7360 / [id number] / [id number] Implant Brst Mod Cls Pro 360cc - [id number] Implanted:Qt y: 1 on 11/12/2012 at [place] [facility] Left: Breast MENTOR KRISSY 08/12/2017 [facility]-7360 / [id number] / [id number] 4.0 X 14 Variable Self Starting Screw Implanted:Qt y: 4 on 02/05/2020 by Luis Eduardo Ross MD at OR [facility] N/A: Spine Cervical KWADWO [id number] / / 1 Level 20mm Dare View Plate Implanted:Qt y: 1 on 02/05/2020 by Luis Eduardo Ross MD at OR [facility] N/A: Spine Cervical KWADWO [id number] / / [id number] Alcutian Implanted:Qt y: 1 on 02/05/2020 by Luis Eduardo Ross MD at OR [facility] N/A: Spine Cervical KWADWO [id number] / / Description:alctuian cage 2.5cc Vitoss Bimodal Foam Pack Implanted:Qt y: 1 on 02/05/2020 by Luis Eduardo Ross MD at OR [facility] N/A: Spine Cervical KWADWO [id number] 11/29/2020 0234-3954 / [id number] / [id number] Sling Desara One - [id number] Implanted:Qt y: 1 on 08/31/2022 by Chico Perry MD at OR [facility] N/A: Vagina [employer] 08/10/2023 [id number] / / [id number] documented as of this encounter Procedures Procedure [...] a [facility] contracted radiologist. Result [facility] Yessi Morton PA-C RADIOLOGY ([facility] ) Final Result documented in this [...] were consensually agreed upon. Care Teams Store Stock Associate Relationship Specialty Start Date End Date Elida Lance DO 9 [facility] [place] [address] PCP - General Family Medicine 11/03/19 documented as of this encounter
--- OUTSIDE RECORDS SUMMARY | 2024-06-26 12:56 | External Medical Summary | Summary of Care ---
Author Name Unknown Organization [facility] Address [address] [place] [address] Phone [phone] Care Team Providers Care Therapeutic Massage Technician Name Role Phone Elida Lance DO Primary Care Provider [phone] Reason for Visit * Reason Onset Date Comments Appointment 11/25/2023 Encounter Details Date Type Department Care Team (Late st Contact Info) Description 11/25/2023 Telephone Orthopaedics Spine Surgery, [place] [address] [place] [address] Joseph Giordano MD [address] [place] [address] Appointment Allergies Active Allergy Reactions Criticality Noted Date [...] (Medrol Dosepack) follow package directions 21 Tablet Active Additional Information Patient not taking.Reported on 01/09/2024 documented as of this encounter (statuses as [...] disease), lumbar 11/21/19 12 [facility] Confirmation Research Other*[id number] 11/2009 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 Never true 10/23/19 Within the past 12 months, t he [...] encounter Miscellaneous Notes * Telephone Encounter - Janet Quintanilla OSA - 11/25/2023 1:29 PM EDT pt called in wanting to see Dr tavarez. He did surgeries on her back in 2014. She has completedx rays that were ordered by dr Ross . Dr ross suggest Dr Giordano would look at X-rays and givesuggestions on what to do. Pt is wanting to have a telemed appt for this if possible because she isunable to get to [place] documented in this encounter Plan of Treatment Upcoming Encounters Date Type Department Care Team (Late st Contact Info) Description 01/28/2024 3:20 PM EST Office Visit [address] [place] [address] Yessi Morton PA-C [address] [place] [address] [place] [address] 02/04/2024 2:20 PM EST NeuroDiagnostic Study Neurophysiology [facility] [address] [place] [address] Erin Garcia MD [address] [place] [address] 02/17/2024 2:30 PM EST Telemedicine Psychology [facility], [place] [address] [place] [address] Roly Miller, RISK ASSESSMENT ANALYST [address] [place] [address] 03/16/2024 2:30 PM EST Telemedicine Psychiatry, [place] [address] [place] [address] Brooke Deluca CRNP [address] [place] [address] 03/30/2024 1:30 PM EST Imaging Radiology, [address] [place] [address] 04/02/2024 11:25 AM EST Office Visit Interventional Pain Center, [facility] [address] [place] [address] Chris Rea, [address] [place] [phone] 04/03/2024 12:10 PM EST Office Visit Family Practice, [facility] [address] [facility] [place] [phone] Elida Lance DO [address] [facility] [place] [address] 10/07/2024 2:40 PM EDT Telemedicine Endocrinology [address] [place] [address] Daniel Franco MD [address] [place] [address] 10/15/2024 3:30 PM EDT Office Visit [facility] [place] [address] [place] [address] Mariya Harding PA-C [address] [facility] [place] [address] Health Maintenance Due Date Last Done Comments [...] Additional history exists CKD HGB USE SMARTSET 29189 10/02/202410/02, 08/14/2022, 03/16/2022, Additional history exists CKD PHOS USE SMARTSET 75160 10/17/202410/02, 03/16/2022, 02/09/2021, Additional history exists Depression [...] this encounter Medical Devices Implanted Type Area Torsion Spring Coiling Machine Setter Device Identifier Shelf Expiration Date Model / Serial / Lot Graft Infuse Bone Sm [id number] - [id number] Implanted:Qt y: 1 on 02/22/2012 [place] [facility] [place]A: Spine Lumbar MED[employer] : NEUROLOGIC PAIN 08/01/2014 [id number] / / [id number] Screw 6x45 Poly Si [id number] - [id number] Implanted:Qt y: 2 on 02/22/2012 [place] [facility] [place]A: Spine Lumbar JNJ : ETHICON CARDIOVATIONS [id number] / / Screw 7x35 Poly Si [id number] - [id number] Implanted:Qt y: 2 on 02/22/2012 [place] [facility] [place]/A: Spine Lumbar JNJ : ETHICON CARDIOVATIONS [id number] / / Asif 5.5x55 Ti Prbnt [id number] - [id number] Implanted:Qt y: 2 on 02/22/2012 at [place] [facility] [place]/A: Spine Lumbar JNJ : DEPUY SPINE [id number] / / Screw Set Sng Inner [id number] - [id number] Implanted:Qt y: 4 on 02/22/2012 at [place] [facility] [place] N/A: Spine Lumbar JNJ : DEPUY SPINE [id number] / / Cage 28x8 Leopard [id number] - [id number] Implanted:Qt y: 1 on 02/22/2012 at [place] [facility] [place] N/A: Spine Lumbar JNJ : ETHICON CARDIOVATIONS [id number] / / Implant Brst Mod Cls Pro 360cc - [id number] Implanted:Qt y: 1 on 11/12/2012 at [place] [facility] [place] Right: Breast MENTOR KRISSY 09/11/2017 [id number] / [id number] / [id number] Implant Brst Mod Cls Pro 360cc - [id number] Implanted:Qt y: 1 on 11/12/2012 at [place] [facility] [place] Left: Breast MENTOR KRISSY 08/12/2017 [id number] / [id number] / [id number] 4.0 X 14 Variable Self Starting Screw Implanted:Qt y: 4 on 02/05/2020 by Luis Eduardo Ross MD at OR [facility] N/A: Spine Cervical KWADWO [id number] / / 1 Level 20mm [place] Plate Implanted:Qt y: 1 on 02/05/2020 by Luis Eduardo Ross MD at OR [facility] N/A: Spine Cervical KWADWO [id number] / / [id number] Alcutian Implanted:Qt y: 1 on 02/05/2020 by Luis Eduardo Ross MD at OR [facility] N/A: Spine Cervical KWADWO [id number] / / Description:alctuian cage 2.5cc Vitoss Bimodal Foam Pack Implanted:Qt y: 1 on 02/05/2020 by Luis Eduardo Ross MD at OR [facility] N/A: Spine Cervical KWADWO [id number] 11/29/20206485-4631 / [id number] / [id number] Rick Donnelly One - [id number] Implanted:Qt y: 1 on 08/31/2022 by Chico Perry MD at OR [facility] N/A: Vagina [employer] 08/10/2023 [id number] / / [id number] documented as of this encounter Advance Directives [...] and were consensually agreed upon. Care Teams Therapeutic Massage Technician Relationship Specialty Start Date End Date Elida Lance DO [address] [place] [address] PCP - General Family Medicine 11/03/19 documented as of this encounter
--- OUTSIDE RECORDS SUMMARY | 2024-06-26 12:56 | External Medical Summary | Summary of Care ---
Author Name Unknown Organization [facility] Address [address] [facility] [place] [address] Phone [phone] Care Team Providers Care National Dedicated Truck Driver Name Role Phone Elida Lance DO Primary Care Provider [phone] Reason for Visit * Reason Comments Follow Up Anxiety Depression * - Authorized Specialty Diagnoses / Procedures Referred By Traci rizzo Referred To Contact Referral ID Status Reason Start Date Expiration Date V isits Requested Visits Authorized [id number] Authorized 11/03/2023 11/01/2024 999 999 Encounter Details Date Type Department Care Team (Late st Contact Info) Description 01/27/2024 12:30 PM EST Telemedicine Psychology Jamal Silva [address] [place] [address] Roly Miller, SWITCH ADJUSTER [address] [place] [address] Borderline personality [...] disease), lumbar 11/21/19 12 [facility] Confirmation Research Other*[id number] 11/2009 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 I was not in a hospital or clinic location. After connecting through [employer], patient was verified with two unique identifiers. Patient (or authorized legal risk control representative) was then informed that this [...] Psychology Jamal Silva [address] [place] [address] 01/27/2024 12:10 PM TYPE OF VISIT: Individual [...] Patient reiterated she is going to her [facility] #2 for Thanksgiving. Patient reported she is not [...] stated it's been, "Over a month". This tag writer provided psychoeducation on utilizing assertive communication [...] anxiety since the last session with this tag writer. Goal: Improved self-management of depression and [...] 2 (Minimal 0-4) C-SSRS administered: Yes [place] Suicide Severity Rating Scale Results 01/27/2024 12:11 [...] Professional Resources: 1. Local Crisis Services: For [facility] -Crisis Services 2. [facility] Division of Psychiatry: [phone] 3. National Suicide Prevention Lifeline: or 034 4. National Crisis Text Line: Text HOME to 764451 5. 911 or proceed to the nearest [...] ineffective (e.g: ED, hotlines): Suicide and Crisis [facility] [address] [place] [address] Crisis Contact [place] [facility] -Crisis Services, and Clinic number: [phone] and Suicide Safety Plan Signature Obtained on [...] assessment: PHQ-9 Adult Data KATE-7 Data [place] Suicide Screen Data Discharge Discussed with patient: Patient continues to need treatment Collaboration of Care: Yes, provider within [facility], information is shared automatically in medical [...] LCSW Division of Psychiatry & Behavioral Medicine [facility] [phone] National Suicide Prevention Lifeline : 988 Crisis Textline : Text "HOME" to 174966 to connect with a crisis counselor Crisis Numbers by County: [facility] - Emergency Services [facility] (5-409-1-YOU CAN) resolve Crisis Network Cinthya . The Open [facility] - Crisis Intervention [facility] Crisis Help-Line [place] & [place] [facility] - Crisis Intervention Services [facility] Service Access [employer]. - Crisis Intervention [place] Choose option [address] [place] [address] of Purchasing Director Carline Lopez & Zeeshan Crisis Intervention Alfred [facility] - Mental Health Crisis Yeung [facility] - Crisis Intervention [place] [facility] - Crisis Intervention Jonathan [place] - Crisis Line Matthias Montes [place] - Mental Health Crisis Hotline [place] [facility] - Crisis Services [place] [facility] Crisis Center [place] Service Access [employer], [employer]. - Crisis Intervention Krysten - Mental Health Crisis Intervention Services [facility] [place] MH/ID Program [facility] [place], [place] - Crisis System Kelliher [facility] Human Services - Crisis Hotline Staci (9-632-476-HELP) [facility] - Crisis Intervention Vasyl [facility] - Crisis Intervention Services [place] [facility] - Crisis Services Luna Safe [facility] - Crisis Center [place] [phone] [facility] - Crisis Hotline Radha (8:30 am-5:00 pm) [place] (after 5:00 pm, weekends & holidays) Maldonado [facility] Crisis Intervention Program [place] [facility] Mental Health Crisis Line [place], Linn and [facility] Crisis Tunde & Brittni [facility] - Crisis Intervention [facility] Mental Health Crisis Service [facility] - Crisis Intervention [facility] - Crisis Intervention [place] & [facility] - Help Line [facility] [place] MH/ID Program [facility] - Crisis Intervention [place] [facility] - Crisis Intervention [place] [facility] Emergency Services, [facility] - Crisis Intervention [place] [facility] Behavioral Health - Emergency Services [facility] - Crisis Line [place] - DBHIDS - Suicide and Crisis Intervention Hotline [facility] - Crisis/ Emergency Services [place] [facility] - Emergency Contact Line [place] [facility] - Crisis Line Hardy ext. 1 [facility] [place] [facility] Action - Crisis Intervention Hotline [place] [facility] Crisis Intervention Services documented in this encounter Plan of Treatment Upcoming Encounters Date Type Department Care Team (Late st Contact Info) Description 01/28/2024 3:20 PM EST Office Visit Dermatology, [place] [address] [facility] [place] [phone] Yessi [place] PA-C [address] [place] [address] [place] [address] 02/04/2024 2:20 PM EST NeuroDiagnostic Study Neurophysiology [facility] [address] [place] [address] Erin Garcia MD [address] [place] [address] 02/17/2024 2:30 PM EST Telemedicine Psychology [facility] [address] [place] [address] Roly Miller LCSW [address] [place] [address] 03/16/2024 2:30 PM EST Telemedicine Psychiatry, [address] [place] [address] Brooke Deluca CRNP 9 [place] [address] 03/30/2024 1:30 PM EST Imaging Radiology, [address] [place] [address] 04/02/2024 11:25 AM EST Office Visit Interventional Pain Center, [facility] [address] [facility] [place] [address] Rona, Max Jethro, DO [address] [place] [phone] 04/03/2024 12:10 PM EST Office Visit [facility] [address] [facility] [place] [phone] Elida Lance, DO [address] [facility] [place] [address] 10/07/2024 2:40 PM EDT Telemedicine Endocrinology [address] [place] [address] Daniel Franco MD [address] [facility] [place] [address] 10/15/2024 3:30 PM EDT Office Visit Neurology [facility] [place] [address] [place] [address] Mariya Harding PA-C [address] [place] [address] Health Maintenance Due Date Last Done Comments [...] Additional history exists CKD HGB USE SMARTSET 09034 10/02/202410/02, 08/14/2022, 03/16/2022, Additional history exists CKD PHOS USE SMARTSET 13458 10/17/202410/02, 03/16/2022, 02/09/2021, Additional history exists Depression [...] this encounter Medical Devices Implanted Type Area Joint Cutter Device Identifier Shelf Expiration Date Model / Serial / Lot Graft Infuse Bone Sm [id number] - [id number] Implanted:Qt y: 1 on 02/22/2012 at [place] [facility] [place] N/A: Spine Lumbar [employer] : NEUROLOGIC PAIN 08/01/2014 [id number] / / [id number] Screw 6x45 Poly Si [id number] - [id number] Implanted:Qt y: 2 on 02/22/2012 at [place] [facility] [place] N/A: Spine Lumbar JNJ : ETHICON CARDIOVATIONS [id number] / / Screw 7x35 Poly Si [id number] - [id number] Implanted:Qt y: 2 on 02/22/2012 at [place] [facility] [place] N/A: Spine Lumbar JNJ : ETHICON CARDIOVATIONS [id number] / / Asif 5.5x55 Ti Prbnt [id number] - [id number] Implanted:Qt y: 2 on 02/22/2012 at [place] [facility] [place] N/A: Spine Lumbar JNJ : DEPUY SPINE [id number] / / Screw Set Sng Inner - [id number] Implanted:Qt y: 4 on 02/22/2012 at [place] [facility] [place] N/A: Spine Lumbar JNJ : DEPUY SPINE [id number] / / Cage 28x8 Leopard [id number] - [id number] Implanted:Qt y: 1 on 02/22/2012 at [place] [facility] [place] N/A: Spine Lumbar JNJ : ETHICON CARDIOVATIONS [id number] / / Implant Brst Mod Cls Pro 360cc - [id number] Implanted:Qt y: 1 on 11/12/2012 at [place] [facility] [place] Right: Breast MENTOR KRISSY 09/11/2017 350-7360 / [id number] / [id number] Implant Brst Mod Cls Pro 360cc - [id number] Implanted:Qt y: 1 on 11/12/2012 at [place] [facility] [place] Left: Breast MENTOR KRISSY 08/12/2017 350-7360 / [id number] / [id number] 4.0 X 14 Variable Self Starting Screw Implanted:Qt y: 4 on 02/05/2020 by Luis Eduardo Ross MD at OR [facility] N/A: Spine Cervical KWADWO [id number] A / / 1 Level 20mm [place] View Plate Implanted:Qt y: 1 on 02/05/2020 by Luis Eduardo Ross MD at OR [facility] N/A: Spine Cervical KWADWO [id number] / / [id number] Alcutian Implanted:Qt y: 1 on 02/05/2020 by Luis Eduardo Ross MD at OR [facility] N/A: Spine Cervical KWADWO [id number] / / Description:alctuian cage 2.5cc Vitoss Bimodal Foam Pack Implanted:Qt y: 1 on 02/05/2020 by Luis Eduardo Ross MD at OR [facility] N/A: Spine Cervical KWADWO [id number] 11/29/2020 7932-2155 / [id number] / [id number] Rick Wall - [id number] Implanted:Qt y: 1 on 08/31/2022 by Chico Perry MD at OR [facility] N/A: Vagina [employer] 08/10/2023 [id number] / / [id number] documented as of this encounter Visit Diagnoses [...] and were consensually agreed upon. Care Teams National Dedicated Truck Driver Relationship Specialty Start Date End Date Elida Lance DO [address] [place] [address] PCP - General Family Medicine 11/03/19 documented as of this encounter
--- OUTSIDE RECORDS SUMMARY | 2024-06-26 12:56 | External Medical Summary | Summary of Care ---
Author Name Unknown Organization [facility] Address [address] [facility] [place] [address] Phone [phone] Care Team Providers Care Meal Packer Name Role Phone Elida Lance DO Primary Care Provider Reason for Visit * Reason Comments Follow Up Anxiety Depression * - Authorized Specialty Diagnoses / Procedures Referred By Traci rizzo Referred To Contact Referral ID Status Reason Start Date Expiration Date V isits Requested Visits Authorized [id number] Authorized 11/03/2023 11/01/2024 [id number] Encounter Details Date Type Department Care Team (Late st Contact Info) Description 01/27/2024 12:30 PM EST Telemedicine Psychology Jamal Silva [address] [place] [address] Roly Miller, GYNECOLOGY TEACHER [address] [place] [address] Borderline personality disorder (HCC)* Allergies Active [...] disease), lumbar 11/21/19 12 [facility] Confirmation Research Other*[id number] 11/2009 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 B12 malabsorption [...] this encounter Progress Notes * Roly Miller, GYNECOLOGY TEACHER - 01/27/2024 12:10 PM EST Patient location: HOME. I was not in a hospital or clinic location. After connecting through Glintso, patient was verified with two unique identifiers. Patient (or authorized legal off premise service representative) was then informed that this [...] NOTE Psychology Jamal Silva [address] [place] [address] 01/27/2024 12:10 PM TYPE OF VISIT: Individual [...] Patient reiterated she is going to her [employer] for Thanksgiving. Patient reported she is not [...] stated it's been, "Over a month". This publicity writer provided psychoeducation on utilizing assertive communication [...] anxiety since the last session with this publicity writer. Goal: Improved self-management of depression and [...] (KATE-7): 2 (Minimal 0-4) C-SSRS administered: Yes [place] Suicide Severity Rating Scale Results 01/27/2024 [...] Professional Resources: 1. Local Crisis Services: For [facility] -Crisis Services 2. [facility] Division of Psychiatry: [phone] 3. National Suicide Prevention Lifeline: or 051 4. National Crisis Text Line: Text HOME to 636591 5. 911 or proceed to the nearest [...] ineffective (e.g: ED, hotlines): Suicide and Crisis [facility] [address] [place] [address] Crisis [address] [place] [facility] -Crisis Services, and Clinic number: [phone] and Suicide Safety Plan Signature Obtained on [...] clinical assessment: PHQ-9 Adult Data KATE-7 Data [place] Suicide Screen Data Discharge Discussed with patient: Patient continues to need treatment Collaboration of Care: Yes, provider within [facility], information is shared automatically in [...] LCSW Division of Psychiatry & Behavioral Medicine [facility] [phone] National Suicide Prevention Lifeline : 988 Crisis Textline : Text "HOME" to 810759 to connect with a crisis counselor Crisis Numbers by County: [facility] - Emergency Services [facility] (0-644-0-YOU CAN) resolve Crisis Network Cinthya . The [facility] - Crisis Intervention [place] [facility] Crisis Help-Line [place] [facility] - Crisis Intervention Services [facility] Service Access [employer] - Crisis Intervention [place]s Choose option [address] [place] [address] of Medicare Contact Specialist Carline Lopez & Zeeshan Crisis Intervention [place] [facility] - Mental Health Crisis Ye[facility] - Crisis Intervention Con[facility] - Crisis Intervention Jonathan [facility] [place] - Crisis Line Matthias Montes [place] - Mental Health Crisis Hotline [place] [facility] - Crisis Services [place] [facility] Crisis Center [place] Service Access [place] [employer], [employer]. - Crisis Intervention Krysten - Mental Health Crisis Intervention Services [place] [facility] MH/ID Program [facility] [place], Lorenzo - Crisis System [place] [facility] Human Services - Crisis Hotline Staci (2-014-969-HELP) [facility] - Crisis Intervention Vasyl [facility] - Crisis Intervention Services [place] [facility] - Crisis Services [place] [facility] - Crisis Center Golden [phone] [facility] - Crisis Hotline Radha (8:30 am-5:00 pm) OR (after 5:00 pm, weekends & holidays) Maldonado [facility] Crisis Intervention Program [place] [facility] Mental Health Crisis Line [place], [place] and Sandra [facility] Crisis Tunde & Brittni [facility] - Crisis Intervention [facility] Mental Health Crisis Service [place] [facility] - Crisis Intervention [facility] - Crisis Intervention [place] & Real [facility] - Help Line [facility] MH/ID Program [facility] - Crisis Intervention [place] [facility] - Crisis Intervention [facility] Emergency Services, [facility] - Crisis Intervention [facility] - Emergency Services [facility] - Crisis Line [facility] - DBHIDS - Suicide and Crisis Intervention Hotline [facility] - Crisis/ Emergency Services [facility] - Emergency Contact Line [place] [facility] - Crisis Line Hardy ext. 1 [facility] Action - Crisis Intervention Hotline [place] [facility] Crisis Intervention Services documented in this encounter Plan of Treatment Upcoming Encounters Date Type Department Care Team (Late st Contact Info) Description 01/28/2024 3:20 PM EST Office Visit Dermatology, [facility] [address] [facility] [place] [phone] Yessi Morton PA-C [address] [place] [address] [place] [address] 02/04/2024 2:20 PM EST NeuroDiagnostic Study Neurophysiology [facility] [address] [place] [address] Erin Garcia MD [address] [place] [address] 02/17/2024 2:30 PM EST Telemedicine Psychology [facility] Henry [address] [place] [address] Roly Miller LCSW [address] [place] [address] 03/16/2024 2:30 PM EST Telemedicine Psychiatry, [address] [place] [address] Brooke Deluca CRNP [address] [place] [address] 03/30/2024 1:30 PM EST Imaging Radiology, [address] [place] [address] 04/02/2024 11:25 AM EST Office Visit Interventional [facility] Center, [facility] [address] [facility] [place] [address] Rona, Max Jethro, DO [address] [place] [phone] 04/03/2024 12:10 PM EST Office Visit [facility] [address] [facility] [place] [phone] Elida Lance, DO [address] Count Includes [facility] [place] [address] 10/07/2024 2:40 PM EDT Telemedicine Endocrinology [address] [place] [address] Daniel Franco MD [address] [facility] [place] [address] 10/15/2024 3:30 PM EDT Office Visit Neurology [facility] [place] [address] [place] [address] Mariya Harding PA-C [address] [place] [address] Health Maintenance Due Date Last Done Comments [...] Additional history exists CKD HGB USE SMARTSET 49605 10/02/202410/02, 08/14/2022, 03/16/2022, Additional history exists CKD PHOS USE SMARTSET 10850 10/17/202410/02, 03/16/2022, 02/09/2021, Additional history exists Depression [...] this encounter Medical Devices Implanted Type Area Shank Faker Device Identifier Shelf Expiration Date Model / Serial / Lot Graft Infuse Bone Sm [id number] - [id number] Implanted:Qt y: 1 on 02/22/2012 at [place] [facility] N/A: Spine Lumbar MED[employer] : NEUROLOGIC PAIN 08/01/2014 [id number] / / [id number] Screw 6x45 Poly Si [id number] - [id number] Implanted:Qt y: 2 on 02/22/2012 at OR [facility] N/A: Spine Lumbar JNJ : ETHICON CARDIOVATIONS [id number] / / Screw 7x35 Poly Si [id number] - [id number] Implanted:Qt y: 2 on 02/22/2012 at OR [facility] N/A: Spine Lumbar JNJ : ETHICON CARDIOVATIONS [id number] / / Asif 5.5x55 Ti Prbnt [id number] - [id number] Implanted:Qt y: 2 on 02/22/2012 at OR [facility] N/A: Spine Lumbar JNJ : DEPUY SPINE [id number] / / Screw Set Sng Inner - [id number] Implanted:Qt y: 4 on 02/22/2012 at OR [facility] N/A: Spine Lumbar JNJ : DEPUY SPINE [id number] / / Cage 28x8 Leopard [id number] - [id number] Implanted:Qt y: 1 on 02/22/2012 at OR [facility] N/A: Spine Lumbar JNJ : ETHICON CARDIOVATIONS [id number] / / Implant Brst Mod Cls Pro 360cc - [id number] Implanted:Qt y: 1 on 11/12/2012 at OR [facility] Right: Breast MENTOR KRISSY 09/11/2017 [id number] / [id number] / [id number] Implant Brst Mod Cls Pro 360cc - [id number] Implanted:Qt y: 1 on 11/12/2012 at OR [facility] Left: Breast MENTOR KRISSY 08/12/2017 350-7360 / [id number] / [id number] 4.0 X 14 Variable Self Starting Screw Implanted:Qt y: 4 on 02/05/2020 by Luis Eduardo Ross MD at OR [facility] N/A: Spine Cervical KWADWO [id number] / / 1 Level 20mm Meade View Plate Implanted:Qt y: 1 on 02/05/2020 by Luis Eduardo Ross MD at OR [facility] N/A: Spine Cervical KWADWO [id number] / / [id number] Alcutian Implanted:Qt y: 1 on 02/05/2020 by Luis Eduardo Ross MD at OR [facility] N/A: Spine Cervical KWADWO [id number] / / Description:alctuian cage 2.5cc Vitoss Bimodal Foam Pack Implanted:Qt y: 1 on 02/05/2020 by Luis Eduardo Ross MD at OR [facility] N/A: Spine Cervical KWADWO [id number] 11/29/2020 1645-8857 / [id number] / [id number] Rick Wall - [id number] Implanted:Qt y: 1 on 08/31/2022 by Chico Perry [facility] N/A: Vagina [employer] 08/10/2023 [id number] / / [id number] documented as of this encounter Visit Diagnoses [...] and were consensually agreed upon. Care Teams Meal Packer Relationship Specialty Start Date End Date Elida Lance DO [address] [place] [address] PCP - General Family Medicine 11/03/19 documented as of this encounter
--- OUTSIDE RECORDS SUMMARY | 2024-06-26 12:56 | External Medical Summary | Summary of Care ---
Author Name Unknown Organization [facility] Address [address] [facility] [place] [address] Phone [phone] Care Team Providers Care Drain Cleaner Name Role Phone Sheryl Lance DO Primary Care Provider [phone] Reason for Visit * Reason Comments Medication Refill Encounter Details Date Type Department Care Team (Late st Contact Info) Description 01/26/2024 Refill [facility] [address] [place] [address] Sheryl Lance DO [address] [place] [address] HTN, goal below 140/90 Allergies Active Allergy Reactions Criticality Noted Date Comments Nsaids 02/01/2020 Hx gastric bypass Other Allergy (See Comments) Rash Medium 013 Dermabond prineo Penicillins 10/04/1999 Rash, last dose was in her 20's Sulfa Antibiotics 10/04/1999 Rash in her early 20's documented as of this encounter (statuses as of 01/26/2024) Medications MULTIVITAMINS PO CAPS one daily Active [...] Dosepack) follow package directions 21 Tablet 11/01/19 Active Additional Information Patient not taking.Reported on 01/09/2024 buPROPion HCl ER (SR) 100 MG Oral Tablet Extended Release 12 Hour (Wellbutrin SR) Take 1 Tablet by mouth every evening. 30 Tablet 2 01/09/2024 2:03 PM EST 01/08/20 24 Active Pregabalin 50 MG Oral Capsule (Lyrica) Take 1 capsule by mouth at night for 5 days then increase to 1 capsule twice daily. 60 Capsule 3 01/09/2024 4:06 PM EST 01/09/20 24 Active traZODone HCl 150 MG Oral Tablet (Desyrel) Take 1 Tablet by mouth at bedtime. 90 Tablet 1 01/16/2024 6:22 PM EST 01/14/20 24 Active Metoprolol Tartrate 25 MG Oral Tablet (Lopressor)Indic ations:HTN, goal below 140/90 TAKE ONE-HALF TABLET BY MOUTH IN THE MORNING AND ONE-HALF TABLET BEFORE BEDTIME 90 Tablet 2 01/26/20 24 Active Metoprolol Tartrate 25 MG Oral Tablet (Lopressor)Indic ations:HTN, goal below 140/90 TAKE ONE-HALF TABLET BY MOUTH IN THE MORNING AND ONE-HALF TABLET BEFORE BEDTIME 90 Tablet 1 10/30/2023 11:49 AM EDT 08/03/19 24 024 Discontin ued(Refil l) documented as of this encounter (statuses as of 01/26/2024) Active Problems Problem Noted Date Diagnosed Date [...] disease), lumbar 11/21/19 12 [facility] Confirmation Research Other*[id number] 06/0 11/2009 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 B12 malabsorption s/p gastric bypass 07/14/2002 Allergic rhinitis 02/12/2002 Dyslipidemia, goal LDL below 130 12/04/2001 Chronic rhinitis HTN, goal below 140/90 Spinal stenosis, lumbar Spondylolisthesis documented as of this encounter (statuses as of 01/26/2024) Resolved Problems Problem Noted Date Diagnosed Date [...] as of this encounter (statuses as of 01/26/2024) Immunizations Name Administration Dates Next Due COVID-19 mRNA, LNP-s, No Pre serve, 2-Dose Series ([place]) 12/08/2020,11/17/2020 Pneumococcal Conjugate Vacc, 13 Valent (Prevnar) [...] Tarik Gold, RN documented in this encounter Miscellaneous Notes * Telephone Encounter - Cristel Baron [facility] - 01/26/2024 11:03 AM ESTSigned Prescriptions: Disp Refills Metoprolol Tartrate 25 MG Oral Tablet (Lop*90 Tab*2 Sig: TAKE ONE-HALF TABLET BY MOUTH IN THE MORNING AND ONE-HALF TABLET BEFORE BEDTIMEAuthorizing Provider: SHERYL LANCE User: CRISTEL BARON documented in this encounter Plan of Treatment Upcoming Encounters Date Type Department Care Team (Late st Contact Info) Description 01/27/2024 2:30 PM EST Telemedicine Psychology Dario [place] [address] [place] [address] Roly Miller, [facility] [address] [place] [address] 01/28/2024 3:20 PM EST Office Visit Dermatology, Royal Goss [address] [facility] [place] [address] Yessi Morton PA-C [address] [place] [address] [place] [phone] 02/04/2024 2:20 PM EST NeuroDiagnostic Study Neurophysiology [facility] [address] [place] [address] Erin Garcia MD [address] [place] [address] 03/16/2024 2:30 PM EST Telemedicine Psychiatry, [place] [address] [place] [phone] Brooke Deluca CRNP [address] [place] [address] 03/30/2024 1:30 PM EST Imaging Radiology, [facility] [address] [facility] [place] [address] 04/02/2024 11:25 AM EST Office Visit Interventional Pain Center, [facility] 132 [place] [address] Chris Rea, [address] [place] [address] 04/03/2024 12:10 PM EST Office Visit Family Practice, [facility] [address] [place] [address] Sheryl Lance, [address] [place] [address] 10/07/2024 2:40 PM EDT Telemedicine Endocrinology [address] [place] [address] Daniel Franco MD [address] [facility] [address] 10/15/2024 3:30 PM EDT Office Visit Neurology [facility] [address] [place] [address] Mariya Harding PA-C [address] [place] [address] Health Maintenance Due Date Last Done Comments Fecal Occult Blood Test 2006 Sigmoidoscopy 2006 Mammogram 08/09/2017 08/09/2016, 060 09/2015, 08/05/2014, Additional history exists Colonoscopy 01/14/2022 01/15/2012, 01/15/2012 COVID-19 Vaccine ( season) 2023 12/08/2020, 11/17/2020 Influenza Vaccine (FLU shot) (#1) 2023 03/20/2023, 01/31/2022, 02/09/2021, Additional history exists Albumin/Creatinine Ratio 03/21/2024 024, 02/03/2019, 09/05/2017, Additional history exists GFR 04/19/2024 10/18/2023, 03/2023, 03/20/2023, Additional history exists CKD HGB USE SMARTSET 54971 10/02/202410/02, 08/14/2022, 03/16/2022, Additional history exists CKD PHOS USE SMARTSET 32499 10/17/2024 0808/2023, 03/16/2022, 02/09/2021, Additional history exists [...] this encounter Medical Devices Implanted Type Area Metal Furniture Glazier Device Identifier Shelf Expiration Date Model / Serial / Lot Graft Infuse Bone Sm [id number] - [id number] Implanted:Qt y: 1 on 02/22/2012 at [place] [facility] N/A: Spine Lumbar [employer] : NEUROLOGIC PAIN 08/01/2014 [id number] / / [id number] Screw 6x45 Poly Si [id number] - [id number] Implanted:Qt y: 2 on 02/22/2012 at [place] [facility] N/A: Spine Lumbar JNJ : ETHICON CARDIOVATIONS [id number] / / Screw 7x35 Poly Si [id number] - [id number] Implanted:Qt y: 2 on 02/22/2012 at [place] [facility] N/A: Spine Lumbar JNJ : ETHICON CARDIOVATIONS [id number] / / Asif 5.5x55 Ti Prbnt [id number] - [id number] Implanted:Qt y: 2 on 02/22/2012 at [place] [facility] N/A: Spine Lumbar JNJ : DEPUY SPINE [id number] / / Screw Set Sng Inner [id number] - [id number] Implanted:Qt y: 4 on 02/22/2012 at [place] [facility] N/A: Spine Lumbar JNJ : DEPUY SPINE [id number] / / Cage 28x8 Leopard [id number] - [id number] Implanted:Qt y: 1 on 02/22/2012 at [place] [facility] N/A: Spine Lumbar JNJ : ETHICON CARDIOVATIONS [id number] / / Implant Brst Mod Cls Pro 360cc - [id number] Implanted:Qt y: 1 on 11/12/2012 at [place] [facility] Right: Breast MENTOR KRISSY 09/11/2017 350-7360 / [id number] / [id number] Implant Brst Mod Cls Pro 360cc - [id number] Implanted:Qt y: 1 on 11/12/2012 at [place] [facility] Left: Breast MENTOR KRISSY 08/12/2017 350-7360 / [id number] / [id number] 4.0 X 14 Variable Self Starting Screw Implanted:Qt y: 4 on 02/05/2020 by Luis Eduardo Ross MD at OR [facility] N/A: Spine Cervical KWADWO [id number] / / 1 Level 20mm [place]er View Plate Implanted:Qt y: 1 on 02/05/2020 by Luis Eduardo Ross MD at OR [facility] N/A: Spine Cervical KWADWO [id number] / / [id number] Alcutian Implanted:Qt y: 1 on 02/05/2020 by Luis Eduardo Ross MD at OR [facility] N/A: Spine Cervical KWADWO [id number] / / Description:alctuian cage 2.5cc Vitoss Bimodal Foam Pack Implanted:Qt y: 1 on 02/05/2020 by Luis Eduardo Ross MD at OR [facility] N/A: Spine Cervical KWADWO [id number] 11/29/2020 1926[address] / [id number] / [id number] Sling Andrzej One - [id number] Implanted:Qt y: 1 on 08/31/2022 by Chico Perry MD at [facility] N/A: Vagina [employer] 08/10/2023 [id number] / / [id number] documented as of this encounter Visit Diagnoses Diagnosis HTN, goal below 140/90 Unspecified essential hypertension documented in this encounter Advance Directives * [...] and were consensually agreed upon. Care Teams Drain Cleaner Relationship Specialty Start Date End Date Sheryl Lance DO [address] [place], [place] [phone] PCP - General Family Medicine 11/03/19 documented as of this encounter
--- OUTSIDE RECORDS SUMMARY | 2024-06-26 12:57 | External Medical Summary | Summary of Care ---
Author Name Unknown Organization [facility] Address [address] [facility] [place] [address] Phone [phone] Care Team Providers Care Stereotyper Name Role Phone Elida Lance DO Primary Care Provider Encounter Details Date Type Department Care Team (Late st Contact Info) Description 01/08/2024 Telephone Psychiatry Jamal Silva [address] [place] [address] Brooke Deluca CRNP [address] [place] [address] Allergies Active Allergy Reactions Criticality Noted Date Comments Nsaids 02/01/2020 Hx gastric bypass Other Allergy (See Comments) Rash Medium 013 Dermabond prineo Penicillins 10/04/1999 Rash, last dose was in her 20's Sulfa Antibiotics 10/04/1999 Rash in her early 20's documented as of this encounter (statuses as of 01/08/2024) Medications Medication Sig Dispensed Refills Start Date End Date Status MULTIVITAMINS PO CAPS one daily Active [facility] IRON 45 MG PO TABS daily Active Metoclopramide HCl 5 MG Oral Tablet (Reglan) Take 1 Tablet by mouth every 4 hours as needed for Nausea. 20 Tablet 07/19/2022 Active Pantoprazole Sodium 40 MG Oral Tablet Delayed Release (Protonix)Indicatio ns:Acid reflux TAKE ONE TABLET BY MOUTH TWICE A DAY 30 MINUTES BEFORE MEALS; DO NOT CRUSH, CUT OR CHEW 180 Tablet 2 01/28/2023 Active Additional Information Patient taking differently: Twice daily, Reported on 09/13/2023 Hair Skin & Nails Advanced Oral Tablet Take 1 Tablet by mouth daily. Active Calcium-Vitamin D-Minerals 600-400 MG-UNIT Oral Tablet Chewable Take 1 Tablet by mouth 2 times a day. Active Potassium Chloride Erin ER 10 MEQ Oral Tablet Extended ReleaseIndications: Hypopotassemia TAKE ONE TABLET BY MOUTH EVERY DAY 100 Tablet 1 04/17/2023 04/16/2024 Active oxyBUTYnin Chloride ER 15 MG Oral Tablet Extended Release 24 Hour (Ditropan XL)Indications:Urin maximino urgency,Urge incontinence of urine Take 2 Tablets by mouth in the morning. 180 Tablet 3 06/07/2023 Active Lisinopril 2.5 MG Oral Tablet (Prinivil)Indicatio ns:HTN, goal below 140/90 Take 1/2 tablet by mouth daily 45 Tablet 3 07/10/2023 Active traZODone HCl 150 MG Oral Tablet (Desyrel) Take 1 Tablet by mouth at bedtime. 90 Tablet 1 07/17/2023 Active Trintellix 20 MG Oral Tablet (Vortioxetine HBr) Take 1 Tablet by mouth in the morning. 90 Tablet 1 07/17/2023 Active LORazepam 0.5 MG Oral Tablet (Ativan) Take 1 Tablet by mouth as needed for Anxiety. 15 Tablet 2 07/17/2023 Active Metoprolol Tartrate 25 MG Oral Tablet (Lopressor)Indicati ons:HTN, goal below 140/90 TAKE ONE-HALF TABLET BY MOUTH IN THE MORNING AND ONE-HALF TABLET BEFORE BEDTIME 90 Tablet 1 08/03/2023 Active Alendronate Sodium 70 MG Oral Tablet (Fosamax)Indication s:Osteoporosis without current pathological fracture, unspecified osteoporosis type Take 1 Tablet by mouth once a week. APPOINTMENT NEEDED FOR FUTURE REFILLS. 12 Tablet 1 09/19/2023 Active Primidone 50 MG Oral Tablet (Mysoline) Take one-half tablet by mouth twice daily 180 Tablet 10/16/2023 Active Gabapentin 100 MG Oral Capsule (Neurontin)Indicati ons:Spinal stenosis of lumbar region without neurogenic claudication Take 1 Capsule by mouth in the morning and 1 Capsule at noon and 1 Capsule before bedtime. 90 Capsule 5 10/28/2023 Active methylPREDNISolone 4 MG Oral Tablet Therapy Pack (Medrol Dosepack) follow package directions 21 Tablet 11/01/2023 Active buPROPion HCl ER (SR) 100 MG Oral Tablet Extended Release 12 Hour (Wellbutrin SR) Take 1 Tablet by mouth every evening. 30 Tablet 2 01/08/2024 Active documented as of this encounter (statuses as of 01/08/2024) Active Problems Problem Noted Date Diagnosed Date Major depressive disorder, recurrent, in partial remission 12/27/2021 Generalized anxiety disorder 12/27/2021 S/P cervical spinal fusion 02/05/2020 DDD (degenerative disc disease), cervical 2017 Major depressive disorder, recurrent, moderate 0 06/14/2017 Memory changes 01/01/2017 Benign hypertension with CKD (chronic kidney disease) stage III 12/26/2016 Controlled substance agreement signed 04/08/2015 DDD (degenerative disc disease), lumbar 11/21/19 12 [place] [employer] Other*[id number] 06/11/2009 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 B12 malabsorption s/p gastric bypass 07/14/2002 Allergic rhinitis 02/12/2002 Dyslipidemia, goal LDL below 130 12/04/2001 Chronic rhinitis HTN, goal below 140/90 Spinal stenosis, lumbar Spondylolisthesis documented as of this encounter (statuses as of 01/08/2024) Resolved Problems Problem Noted Date Diagnosed Date Resolved Date Tobacco use disorder 10/03/2013 017 Kidney disease, chronic, sta ge III (GFR 30-59 ml/min) 2013 12/26/2016 Overview: Per CKD protocol #1 Joint pain, hip 02/17/2013 12/19/2017 Obesity, Class I, BMI 30.0-3 4.9 (see actual BMI) 05/26/2009 02/18/2020 Overview: Per Obesity Taxonomy Need for prophylactic hormon e replacement therapy (postmenopausal) 01/14/2008 09/02/2008 ADVANCE DIRECTIVE INFORMATION 10/08/2006 01/06/2024 Overview: Yes, Patient instructed to provide copy of advance directive for provider to review and to be scanned into Electronic Medical Record Hypertrophy of breast 04/17/20052016 ABDOMINAL PANNICULITIS 04/17/200512/03 Asthma with severity to be determined 02/12/2002 09/02/2008 Overview: ICD-10 update of inactive term Contact Dermatitis 02/12/2002 8 OBESITY, UNSPECIFIED 01/14/2002 010 Overview: Per Obesity Taxonomy Myalgia and myositis 12/09/2001 018 JOINT PAIN-L-LEG 12/09/2001 12/03/2016 Lumbago 07/07/2018 ADJ DISORDER W/DEPRES MOOD 0 07/07/2018 Asthma, allergic 09/02/2008 Urinary frequency 12/03/2016 documented as of this encounter (statuses as of 01/08/2024) Immunizations Name Administration Dates Next Due COVID-19 [...] Answer Date Recorded PHQ Adult Total Score 10 11/01/2022 Hunger Vital Sign Answer Date Recorded Within [...] ages 0-17 years) Not on file 10/23/2023 Sex and Gender Information Value Date Recorded Sex Assigned at Female 06/27/2018 11:00 AM EDT Gender Identity Female 06/27/2018 11:00 AM EDT Sexual Orientation Straight 06/27/2018 11 :00 AM EDT Job Start Date Occupation Industry Not on file Not on file Not on file documented as of this encounter Functional Status Functional Status Response Date of Assess ment Are you blind or do you have serious difficulty seeing, even when wearing glasses? No 08/14/2013 Do you have serious difficul ty walking or climbing stairs? (5 years old or older) No 08/14/2013 Do you have difficulty dress ing or bathing? (5 years old or older) No 08/14/2013 Because of a physical, menta l, or emotional condition, do you have difficulty doing errands alone such as visiting a doctor s office or shopping? (15 years old or older) No 08/15/19 14 Cognitive Status Response Date of Assessm ent Because of a physical, menta l, or emotional condition, do you have serious difficulty concentrating, remembering, or making decisions? (5 years old or older) No 08/14/2013 documented as of this encounter Plan of Treatment Upcoming Encounters Date Type Department Care Team (Late st Contact Info) Description 01/09/2024 1:30 PM EST Office Visit Interventional Pain Center, [facility] [address] [facility] [place] [phone] Chris Rea, [address] [place] [phone] 01/13/2024 2:30 PM EST Telemedicine Psychology Jamal Silva [address] [place] [address] Roly Miller, [facility] [address] [place] [address] 01/22/2024 2:30 PM EST Imaging Radiology [address] [place] [address] 01/28/2024 3:20 PM EST Office Visit Dermatology, [address] [phone] Yessi Morton PA-C [address] [place] [address] [place] [address] 03/16/2024 2:30 PM EST Telemedicine Psychiatry Jamal Silva [address] [place] [address] Brooke Deluca CRNP [address] [place] [address] 03/30/2024 1:30 PM EST Imaging Radiology, [facility] [address] [facility] [place] [address] 04/03/2024 12:10 PM EST [facility] [address] [place] [address] Elida Lance, [address] [place] [address] 10/07/2024 2:40 PM EDT Telemedicine Endocrinology [address] [place] [phone] Daniel Franco MD [address] [facility] [place] [address] 10/15/2024 3:30 PM EDT Office Visit Neurology [facility] [address] [facility] [place] [address] Mariya Harding PA-C [address] [facility] [place] [address] Health Maintenance Due Date Last Done Comments [...] Additional history exists CKD HGB USE SMARTSET 08001 10/02/202410/02, 08/14/2022, 03/16/2022, Additional history exists CKD PHOS USE SMARTSET 12700 10/17/2024 0808/2023, 03/16/2022, 02/09/2021, Additional history exists [...] this encounter Medical Devices Implanted Type Area Photogrammetrist Device Identifier Shelf Expiration Date Model / Serial / Lot Graft Infuse Bone Sm [id number] - [id number] Implanted:Qt y: 1 on 02/22/2012 at OR [facility] [place] N/A: Spine Lumbar [employer] : NEUROLOGIC PAIN 08/01/2014 [id number] / / [id number] Screw 6x45 Poly Si [id number] - [id number] Implanted:Qt y: 2 on 02/22/2012 at OR [facility] [place] N/A: Spine Lumbar JNJ : [employer] [id number] / / Screw 7x35 Poly Si [id number] - [id number] Implanted:Qt y: 2 on 02/22/2012 at OR [facility] [place] N/A: Spine Lumbar JNJ : [employer] [id number] / / Asif 5.5x55 Ti Prbnt [id number] - [id number] Implanted:Qt y: 2 on 02/22/2012 at OR [facility] [place] N/A: Spine Lumbar JNJ : DE[employer] [id number] / / Screw Set Sng Inner [id number] - [id number] Implanted:Qt y: 4 on 02/22/2012 at OR [facility] [place] N/A: Spine Lumbar JNJ : [employer] [id number] / / Cage 28x8 Leopard [id number] - [id number] Implanted:Qt y: 1 on 02/22/2012 at OR [facility] [place] N/A: Spine Lumbar JNJ : [employer] [id number] / / Implant Brst Mod Cls Pro 360cc - [id number] Implanted:Qt y: 1 on 11/12/2012 at OR [facility] [place] Right: Breast MENTOR KRISSY 09/11/2017 [id number] / [id number] / [id number] Implant Brst Mod Cls Pro 360cc - [id number] Implanted:Qt y: 1 on 11/12/2012 at OR [facility] [place] Left: Breast [employer] KRISSY 08/12/2017 [id number] / [id number] / [id number] 4.0 X 14 Variable Self Starting Screw Implanted:Qt y: 4 on 02/05/2020 by Luis Eduardo Ross MD at OR [facility] N/A: Spine Cervical KWADWO [id number] / / 1 Level 20mm [employer] Plate Implanted:Qt y: 1 on 02/05/2020 by Luis Eduardo Ross MD at OR [facility] N/A: Spine Cervical KWADWO [id number] / / [id number] Alcutian Implanted:Qt y: 1 on 02/05/2020 by Luis Eduardo Ross MD at OR [facility] N/A: Spine Cervical KWADWO [id number] / / Description:alctuian cage 2.5cc Vitoss Bimodal Foam Pack Implanted:Qt y: 1 on 02/05/2020 by Luis Eduardo Ross MD at OR [facility] N/A: Spine Cervical KWADWO [id number] 11/29/2020 [id number] / [id number] / [id number] Sling Andrzej One - [id number] Implanted:Qt y: 1 on 08/31/2022 by Chico Perry MD at OR [facility] N/A: Vagina [employer] 08/10/2023 [id number] / / [id number] documented as of this encounter Visit Diagnoses [...] and were consensually agreed upon. Care Teams Stereotyper Relationship Specialty Start Date End Date Elida Lance DO [address] [place] [address] PCP - General Family Medicine 11/03/19 documented as of this encounter
--- OUTSIDE RECORDS SUMMARY | 2024-06-26 12:57 | External Medical Summary | Summary of Care ---
Author Name Unknown Organization [facility] Address [address] [place] [address] Phone [phone] Care Team Providers Care Follow Up Specialist Name Role Phone Elida Lance DO Primary Care Provider Reason for Referral * Evaluate & Treat - Unlimited Visits (Within 10 days (routine)) - Authorized Specialty Diagnoses / Procedures Referred By Traci rizzo Referred To Contact Psychology Diagnoses History of lumbar spinal fusion Chronic pain syndrome Fibromyalgia Numbness and tingling of both legs below knees History of depression History of anxiety History of obsessive compulsive disorder History of posttraumatic stress disorder (PTSD) Chris Rea DO [address] [place] [address] Ale Arroyo PsyD [address] [place] [address] Referral ID Status Reason Start Date Expiration Date Visits Requested Visits Authorized [id number] Authorized Specialty Services Required 01/09/2024 [id number] Question Answer Referral Priority Within 10 days (routine) Where should this appointment be scheduled? [facility] Is this referral for medication management? No Reason for Referral: Pain Specific Condition? Chronic Pain Comments Evaluate and treat. History of fibromyalgia (central sensitization to pain), history of depression/anxiety, PTSD, OCD (per patient history) with likely additional anatomic generators of chronic SIJ pain. EMG, MRI outstanding. May consider for ablations and/or SCS in the future. Reason for Visit * Reason Comments Back Pain * Evaluate & Treat - Unlimited Visits (Within 10 days (routine)) - Authorized Specialty Diagnoses / Procedures Referred By Contcarol t Referred To Contact Pain Management / Pain Medicine Diagnoses Chronic low back pain, unspecified back pain laterality, unspecified whether sciatica present Neck pain History of lumbar fusion History of lumbar laminectomy S/P cervical spinal fusion Luis Eduardo Ross MD [address] [place] [id number] Referral ID Status Reason Start Date Expiration Date Visits Requested Visits Authorized [id number] Authorized Specialty Services Required 11/01/2023 [id number] Encounter Details Date Type Department Care Team (Latest Contact Info) Description 01/09/2024 1:30 PM EST Office Visit [facility] [address] [place] [id number] Chris Rea DO [address] [place] [phone] Numbness and tingling of both legs below knees*; History of lumbar spinal fusion; Chronic pain syndrome; Fibromyalgia; History of depression; History of anxiety; History of obsessive compulsive disorder; History of posttraumatic stress disorder (PTSD) Allergies Active Allergy Reactions Criticality Noted Date Comments Nsaids 02/01/2020 Hx gastric bypass Other Allergy (See Comments) Rash Medium 013 Dermabond prineo Penicillins 10/04/1999 Rash, last dose was in her 20's Sulfa Antibiotics 10/04/1999 Rash in her early 20's documented as of this encounter (statuses as of 01/09/2024) Medications Medication Sig Dispensed Refills Start Date End Date Status MULTIVITAMINS PO CAPS one daily Active CVS IRON 45 MG PO TABS daily Active Metoclopramide HCl 5 MG Oral Tablet (Reglan) Take 1 Tablet by mouth every 4 hours as needed for Nausea. 20 Tablet 07/19/2022 Active Pantoprazole Sodium 40 MG Oral Tablet Delayed Release (Protonix)Indicat ions:Acid reflux TAKE ONE TABLET BY MOUTH TWICE [...] Erin ER 10 MEQ Oral Tablet Extended ReleaseIndication s:Hypopotassemia TAKE ONE TABLET BY MOUTH EVERY DAY 100 Tablet 1 04/17/2023 04/16/19 25 Active oxyBUTYnin Chloride ER 15 MG Oral Tablet Extended Release 24 Hour (Ditropan XL)Indications:Ur inary urgency,Urge incontinence of urine Take 2 Tablets by mouth in the morning. 180 Tablet 3 06/07/2023 Active Lisinopril 2.5 MG Oral Tablet (Prinivil)Indicat ions:HTN, goal below 140/90 Take 1/2 tablet by [...] Active Metoprolol Tartrate 25 MG Oral Tablet (Lopressor)Indica tions:HTN, goal below 140/90 TAKE ONE-HALF TABLET BY MOUTH IN THE MORNING AND ONE-HALF TABLET BEFORE BEDTIME 90 Tablet 1 08/03/2023 Active Alendronate Sodium 70 MG Oral Tablet (Fosamax)Indicati ons:Osteoporosis without current pathological fracture, unspecified osteoporosis type Take 1 Tablet by mouth once a week. APPOINTMENT NEEDED FOR FUTURE REFILLS. 12 Tablet 1 09/19/2023 Active Primidone 50 MG Oral Tablet (Mysoline) Take one-half tablet by mouth twice daily 180 Tablet 10/16/2023 Active methylPREDNISolon e 4 MG Oral Tablet Therapy Pack (Medrol Dosepack) follow package directions 21 Tablet 11/01/2023 Active Additional Information Patient not taking.Reported on 01/09/2024 buPROPion HCl ER (SR) 100 MG Oral Tablet Extended Release 12 Hour (Wellbutrin SR) Take 1 Tablet by mouth every evening. 30 Tablet 2 01/08/2024 Active Pregabalin 50 MG Oral Capsule (Lyrica) Take 1 capsule by mouth at night for 5 days then increase to 1 capsule twice daily. 60 Capsule 3 01/09/2024 Active Gabapentin 100 MG Oral Capsule (Neurontin)Indica tions:Spinal stenosis of lumbar region without neurogenic claudication Take 1 Capsule by mouth in the morning and 1 Capsule at noon and 1 Capsule before bedtime. 90 Capsule 5 10/28/2023 01/09/20 24 Discontinued documented as of this encounter (statuses as of 01/09/2024) Active Problems Problem Noted Date Diagnosed Date Major depressive disorder, recurrent, in partial remission 12/27/2021 Generalized anxiety disorder 12/27/2021 S/P cervical spinal fusion 02/05/2020 DDD (degenerative disc disease), cervical 2017 Major depressive disorder, recurrent, moderate 0 06/14/2017 Memory changes 01/01/2017 Benign hypertension with CKD (chronic kidney disease) stage III 12/26/2016 Controlled substance agreement signed 04/08/2015 DDD (degenerative disc disease), lumbar 11/21/19 12 [employer] Other*[id number] 11/2009 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 B12 malabsorption s/p gastric bypass 07/14/2002 Allergic rhinitis 02/12/2002 Dyslipidemia, goal LDL below 130 12/04/2001 Chronic rhinitis HTN, goal below 140/90 Spinal stenosis, lumbar Spondylolisthesis documented as of this encounter (statuses as of 01/09/2024) Resolved Problems Problem Noted Date Diagnosed Date [...] as of this encounter (statuses as of 01/09/2024) Immunizations Name Administration Dates Next Due COVID-19 mRNA, LNP-s, No Pre serve, 2-Dose Series (Qustodio) 12/08/2020,11/17/2020 Pneumococcal Conjugate Vacc, 13 Valent (Prevnar) [...] No 08/14/2013 documented as of this encounter Progress Notes * Chris Rea, - 01/09/2024 1:48 PM EST Interventional Pain Consult Dear Luis Eduardo Ross MD, thank you for your kind referral of Martha Lawson. Chief Complaint: Chief Complaint Patient presents with Back Pain History of Present Illness: As you know, Martha Lawson is a very pleasant 63 year old female with a past medical history significant for Past Medical History: Diagnosis Date Allergic rhinitis Asthma, allergic no significant exacerbations since bypass ; 2005 Backache 03/04/1990 Backache Depressive disorder, not elsewhere classified 03/04/1984 Depression Fibromyalgia Gastritis and gastroduodenitis 02/27/2007 mild chronic gastritis GERD (gastroesophageal reflux disease) HTN (hypertension) INFORMATION chronic rhinitis Migraine Obesity, BMI not known life long seen at the high risk obsity clinic in [facility] Pancreatitis Spinal stenosis, lumbar Spondylolisthesis who was referred to the pain clinic for evaluation for lumbar radicular pain. Has had a L5/S1 posterior instrumented fusion, s/p revision and then s/p explant of hardware in 2015. Dr. Giordano was her surgeon in [place], [place]. The pain is located in the lower back, left buttock "SIJ" and she experiences numbness in her feet and ankles. She describes it as a sharp, dull, tingling painful sensation. The pain is longstanding.Aggravating factors include: "everything", walking. Alleviating factors include: denies. The pain is present 100 % of time. Her current pain score is 5/10. Her pain at its least is 5 / 10. Her worst pain is 9-10 / 10. Reports weakness in both legs sometimes even with lifting her legs to climb stairs. Reports numbness. Denies bowel or bladder incontinence. Denies symptoms of saddle anesthesia. Denies fevers/chills/night sweats. Denies unintentional weight loss. Current Pertinent Medications: Medical cannabis Prior trial of gabapentin trintellix Medications Trialed for this Issue Previously: Acetaminophen: Yes, explain: counseled on max dose 3g/day Steroids: No, explain: NSAIDS: No, explain: gastric bypass surgery history Anticonvulsants: Yes, explain: gabapentin dry mouth Muscle Relaxants: No, explain: Topical Agents: No, explain: Sleep Aids: No, explain: Anti-Depressants: Yes, explain: trintellix Opioids: Yes, explain: has stopped but previously on hydrocodone Other: Pertinent Medications Poorly Tolerated Previously: Gabapentin - severely dry mouth Interventional Pain Procedures: Prior to surgery Pertinent Surgeries: As per hpi, history of L5/S1 lumbar fusion with laminectomy. Physical Therapy: None recently Other Therapies: Psychosocial Factors: She reports feeling depressed. She reports feeling anxiety. She denies} any suicidal or homicidal ideation.She admits consulting with a behavorial health specialist currently, helpful. She reports tobacco use, cigarettes. Uses medical cannabis. She reports} alcohol use, social. She denies personal history of substance abuse. She denies family history of substance abuse. She denies pending litigation, worker's compensation, or disability claims related to reported issue. Review of Systems: A comprehensive 14-pt ROS were of reviewed with the patient including difficulty with sleep, snoring, aspiration history, dysphagia, stomach pain, nausea and vomiting, severe headaches, confusion, open skin lesions or wounds, chest pain, shortness of breath, excessive thirst, somnolence, dysuria, incomplete bladder emptying, easy bruising, recent clotting problems or bleeding, depression or rushed thoughts unless noted previously. Past Medical History: Diagnosis Date Allergic rhinitis Asthma, allergic no significant exacerbations since bypass ; 2004 Backache 03/04/1990 Backache Depressive disorder, not elsewhere classified 03/04/1984 Depression Fibromyalgia Gastritis and gastroduodenitis 02/27/2007 mild chronic gastritis GERD (gastroesophageal reflux disease) HTN (hypertension) INFORMATION chronic rhinitis Migraine Obesity, BMI not known life long seen at the high risk obsity clinic in [facility] Pancreatitis Spinal stenosis, lumbar Spondylolisthesis Past Surgical History: Procedure Laterality Date ARTHRODESIS, ANT INTERBODY, BELOW C-2 N/A 02/05/2020 ARTHRODESIS, ANT INTERBODY, BELOW C-2 performed by Luis Eduardo Ross MD at [facility] AUTOGRAFT, SPINE SURG, MORSELIZED N/A 02/05/2020 OBTAIN AUTOGRAFT FOR SPINE SURGERY MORSELIZED SEPARATE INCISION performed by Luis Eduardo Ross MD at [facility] BONE MARROW ASPIRATION BONE GRAFTING SPINE SURGERY ONLY N/A 02/05/2020 BONE MARROW ASPIRATION FOR SPINE BONE GRAFTING performed by Luis Eduardo Ross MD at OR [facility] DELIVERY x 1 COLONOSCOPY, DIAGNOSTIC (RECTUM) 01/15/2012 COLONOSCOPY FLEXIBLE PROXIMAL DIAGNOSTIC performed by Raman Patel MD at [facility] CYSTOSCOPY N/A 08/31/2022 CYSTOURETHROSCOPY performed by Chico Perry MD at [facility] EGD, FLEXIBLE, DIAGNOSTIC 03/28/2017 normal/ESOPHAGOGASTRODUODENOSCOPY (EGD), FLEXIBLE, TRANSORAL, DIAGNOSTIC performed by Raman Patel MD at ENDOSCOPY [facility] EGD, FLEXIBLE, DIAGNOSTIC 06/23/2021 z-line regular, Michlele-en-Y gastrojejunostomy w/ gastrojejunal anastomosis/biopsies from your duodenum returned normal / ESOPHAGOGASTRODUODENOSCOPY (EGD), FLEXIBLE, TRANSORAL, DIAGNOSTIC performed by Joana Adam MD at ENDOSCOPY [facility] EGD, FLEXIBLE, DIAGNOSTIC 02/07/2022 normal bx / ESOPHAGOGASTRODUODENOSCOPY (EGD), FLEXIBLE, TRANSORAL, DIAGNOSTIC performed by Joana Adam MD at ENDOSCOPY [facility] EGD, FLEXIBLE, W/BIOPSY 02/27/2007 mild chronic gastritis ENLARGEMENT OF BREAST W/IMPLANT 11/12/2012 MAMMOPLASTY AUGMENTATION WITH IMPLANT performed by Gab Campbell MD at OR [facility] EXCISION EXCES SKIN,PANNICULECTOMY,INFRAUMB 2006 GASTRIC BYPASS FOR OBESITY GASTRIC BYPASS FOR OBESITY INSERT BIOMECH DEVICE INTERVERTEBRAL DISC SPACE W/ARTHRODESIS N/A 02/05/2020 INSERTION INTERBODY BIOMECHANICAL DEVICE ANTERIOR W/INTERBODY ARTHRODESIS performed by Luis Eduardo Ross MD at OR [facility] LIGATE/CUT OVIDUCT(S) Tubal Ligation LUMBAR SPINE FUSION, POST INTERBODY 02/22/2012 ARTHRODESIS SPINE POSTERIOR INTERBODY WITH LAMINECTOMY LUMBAR performed by Joseph Giordano MD at OR [facility] LUMBAR SPINE FUSION, POST INTERBODY 03/17/2012 ARTHRODESIS SPINE POSTERIOR INTERBODY WITH LAMINECTOMY LUMBAR performed by Joseph Giordano MD at [facility] LUMBAR SPINE FUSION, POSTEROLATERAL 02/22/2012 ARTHRODESIS SPINE POSTERIOR LUMBAR performed by Joseph Giordano MD at OR [facility] MAMMOGRAM - BILATERAL 08/07/2004 Birad code 2 benign findings MAMMOGRAM SCREENING-BILATERAL 01/27/2003 birad code 2 MASTOPEXY 11/12/2012 MASTOPEXY performed by Gab Campbell MD at OR [facility] OTHER surgery L wrist REMOVE EXCESSIVE SKIN, OTHER AREA 11/12/2012 EXCISION EXCESSIVE SKIN AND SUBCUTANEOUS TISSUE OTHER performed by Gab Campbell MD at OR [facility] REMOVE EXCESSIVE SKIN, OTHER AREA N/A 03/23/2014 EXCISION EXCESSIVE SKIN AND SUBCUTANEOUS TISSUE OTHER performed by Gab Campbell MD at OR [facility] REMOVE EXCESSIVE SKIN/TISSUE, THIGH 11/12/2012 EXCISION EXCESSIVE SKIN AND SUBCUTANEOUS TISSUE THIGH performed by Gab Campbell MD at OR [facility] REMOVE LUMBAR SPINE LAMINA, 1 SEG 02/22/2012 LAMINECTOMY FACETECTOMY AND FORAMINOTOMY POSTERIOR LUMBAR performed by Joseph Giordano MD at [facility] REMOVE SPINE FIXATION DEVICE, POST 08/14/2013 REMOVAL POSTERIOR SPINAL NONSEGMENTAL INSTRUMENTATION performed by Joseph Giordano MD at OR [facility] REPAIR BLADDER DEFECT N/A 08/31/2022 VAGINAL SLING PROCEDURE FOR STRESS INCONTINENCE performed by Chico Perry MD at [facility] SACROILIAC JOINT INJECT W/GUIDANCE 02/09/2014 INJECTION SACROILIAC JOINT performed by Mateo Christian DO at OR [facility] SACROILIAC JOINT INJECT W/GUIDANCE 02/23/2014 INJECTION SACROILIAC JOINT performed by Mateo Christian DO at [facility] SKIN TISSUE REARRANGEMENT 11/12/2012 SKIN TISSUE REARRANGEMENT performed by Gab Campbell MD at [facility] SKIN TISSUE REARRANGEMENT, ADD-ON 11/12/2012 SKIN TISSUE REARRANGEMENT, ADD-ON performed by Gab Campbell MD at OR [facility] SPINE FIX DEV, ANT, 3 SEG, INSERT N/A 02/05/2020 ANTERIOR INSTRUMENTATION 2 TO 3 VERTEBRAL SEGMENT performed by Luis Eduardo Ross MD at OR [facility] SUCTION REMOVE FAT TISSUE, LEGS 11/12/2012 SUCTION ASSISTED LIPECTOMY LOWER EXTREMITY performed by Gab Campbell MD at OR [facility] TOTAL ABD HYSTERECTOMY W/WO REMOVAL OF TUBE(S) 11/24/2007 with BSO VAGINAL DELIVERY ONLY times 3 Social History Socioeconomic History Marital status: Spouse name: Not on file Number of children: 4 Years of education: Not on file Highest education level: Not on file Occupational History Employer: [employer] Comment: medical disability Tobacco Use Smoking status: Former Current packs/day: 0.00 Average packs/day: 0.3 packs/day for 15.0 years (3.8 ttl pk-yrs) Types: Cigarettes Start date: 07/12/2001 Quit date: 07/12/2016 Years since quittin.4 Passive exposure: Past Smokeless tobacco: Never Vaping [...] Social History Narrative Not on file Social Determinants of Health Financial Resource Strain: Low Risk (10/23/2023) Financial Resource Strain Do you have any trouble paying for your medications, or do you think you might in the future? (Adult - for ages 18 years and over): No Does your family have trouble paying for medicine? (Household - for ages 0-17 years): Not on file Food Insecurity: No Food Insecurity (10/23/2023) Food Insecurity Do you need food for this week? (Adult - for ages 18 years and over): No Are you able to get enough food for your family? (Household - for ages 0-17 years): Not on file Does your family need food this week? (Household - for ages 0-17 years): Not on file Do you always have enough food for your family? (Household - for ages 0-17 years): Not on file Transportation Needs: No Transportation Needs (10/23/2023) Transportation Needs Do you have trouble getting a ride to medical visits or work? (Adult - for ages 18 years and over):Never True Does your family have a hard time [...] years): Not on file Social Connections: Socially Isolated (10/23/2023) Social Connections How often do you feel lonely or isolated from those around you? (Adult - for ages 18 years and over): Often Housing Stability: Low Risk (10/23/2023) Housing Stability Do you currently live in a correction or have no steady place to sleep at night? (Adult - for ages 18 years and over): No Do you think you are at risk of becoming homeless? (Adult - for ages 18 years and over): No Does your family worry about paying for [...] - for ages0-17 years): Not on file Other allergy (see comments), Nsaids, Penicillins, and Sulfa antibiotics Current Outpatient Medications Medication Sig Dispense Refill MULTIVITAMINS PO CAPS one daily CVS IRON 45 MG PO TABS daily Pantoprazole Sodium 40 MG Oral Tablet Delayed [...] tablet by mouth daily 45 Tablet 3 traZODone HCl 150 MG Oral Tablet (Desyrel) Take 1 Tablet by mouth at bedtime. 90 Tablet 1 Trintellix 20 MG Oral Tablet (Vortioxetine HBr) Take 1 Tablet by mouth in the morning. 90 Tablet 1 LORazepam 0.5 MG Oral Tablet (Ativan) Take 1 Tablet by mouth as needed for Anxiety. 15 Tablet 2 Metoprolol Tartrate 25 MG Oral Tablet (Lopressor) TAKE ONE-HALF TABLET BY MOUTH IN THE MORNING AND ONE-HALF TABLET BEFORE BEDTIME 90 Tablet 1 Alendronate Sodium 70 MG Oral Tablet (Fosamax) Take 1 Tablet by mouth once a week. APPOINTMENT NEEDED FOR FUTURE REFILLS. 12 Tablet 1 Primidone 50 MG Oral Tablet (Mysoline) Take one-half tablet by mouth twice daily 180 Tablet 0 buPROPion HCl ER (SR) 100 MG Oral Tablet Extended Release 12 Hour (Wellbutrin SR) Take 1 Tablet by mouth every evening. 30 Tablet 2 Pregabalin 50 MG Oral Capsule (Lyrica) Take 1 capsule by mouth at night for 5 days then increase to1 capsule twice daily. 60 Capsule 3 Metoclopramide HCl 5 MG Oral Tablet (Reglan) Take 1 Tablet by mouth every 4 hours as needed for Nausea. 20 Tablet 0 methylPREDNISolone 4 MG Oral Tablet Therapy Pack (Medrol Dosepack) follow package directions (Patient not taking: Reported on 01/09/2024) 21 Tablet 0 No current facility-administered medications for this visit. Facility-Administered Medications Ordered in Other Visits Medication Dose Route Frequency Provider Last Rate Last Admin glycopyrrolate (ROBINUL) inj Once PRN Tj Rincon FLOORS BUFFER 0.6 mg at 02/22/12 1103 neostigmine methylsulfate (PROSTIGMIN) 1 MG/ML inj Once PRN Tj Rincon FLOORS BUFFER 3 mg at 02/22/12 1103 Family History Problem Relation Name Age of Onset Other (ovarian ca[Other]) Mother Thyroid Disorder Mother Cancer Mother Barby Fye Ovarian Ear Problems Mother Barby Fye Thyroid Disorder Mother Barby Fye Allergies Mother Barby Fye Heart Disorder Father triple by pass Lung Disorder Father sleep apnea Glaucoma Father B. [place] Fye Heart Disorder Father B. [place] Fye Hypertension Father B. [place] Fye Other (barber siri[Other]) Brother bilateral hip replacement Heart Disorder Grandmother (Maternal) [place] Hypertension Grandmother (Maternal) [place] Arthritis Grandmother (Maternal) [place] Diabetes Grandmother (Maternal) Saba [place] Heart Disorder Grandfather (Maternal) Bharath De Dios Hypertension Grandfather (Maternal) Bharath De Dios Cancer Grandmother (Paternal) [place] Fye Breast Heart Disorder Grandfather (Paternal) Go [...] Other Other (dm[Other]) Other Other (cva[Other]) Other Pertinent Labs/Test Results: INR ( ) Date [...] VOLUME- [facility] 1,250 08/29/2020 01:19 PM Imaging: XR C SPINE 4-5 VIEWS Narrative: EXAM XR C SPINE 4-5 VIEWS,11/01/2023 10:59 am HISTORY 63 y/o withf/u C4-5 anterior cervical discectomy and fusion 02/04/2010 COMPARISON Cervical spine radiographs from 09/07/2022. TECHNIQUE AP, lateral, flexion extension views of the cervical spine were obtained. FINDINGS C4-C5 ACDF hardware is intact. Normal alignment. No dynamic instability. There is loss of the lordotic curvature, unchanged. Degenerative changes are similar to prior radiographs. No significant softtissue abnormality. Impression: IMPRESSION Stable postoperative and degenerative changes. XR L SPINE COMPLETE Narrative: EXAM XR L SPINE COMPLETE,11/01/2023 10:59 am HISTORY 63 y/o withlumbar back pain. COMPARISON Lumbar spine radiographs from 09/18/2023. TECHNIQUE AP, lateral, flexion and extension views of the lumbar spine. FINDINGS Grade 1 anterolisthesis L4 on L5 and grade 1-2 anterolisthesis L5 on S1 is not significantly changed. There is evidence of prior discectomy with probable laminectomy and posterior spinal fusion at L5-S1 with subsequent hardware explantation. Severe anterior wedge compression fracture involving the T12 vertebral body is also unchanged. Degenerative changes are similar to prior radiographs. No evidence of dynamic instability. Impression: IMPRESSION Chronic changes as above. Objective Physical Exam: Vital Signs: LMP 03/18/2007 There is no height or weight on file to calculate BMI. General: No apparent distress. Eyes: pupils equal and round, sclera white, pupils midsize. ENT: mucous membranes moist Resp: Non-labored breathing CV: Extremities warm and well-perfused. Psych: Oriented; affect warm, insight good. Skin: No rashes or lesions appreciated on exposed skin Neuromuscular Exam: Stoll's negative bilaterally. Inspection: Rises from a seated position without difficulty. There is not evidence of erythema, edema in the extremities. Gait: Ambulates unassisted; gait is mildly antalgic. Palpation: Palpation does reveal midline lumbar tenderness; There is lumbar paraspinal tenderness bilaterally regions. Trigger points were not identified. PSIS tenderness: bilateral, SEVERE. GTB tenderness: none Spine range of motion: There is pain with lumbar extension There is not pain with lumbar oblique extension to the right There is not pain with lumbar oblique extension to the left There is not pain with lumbar flexion Motor: Motor strength exam reveals: Lower extremities: Right Left Hip flexion: L1,L2,L3 5/5 5/5 Add hips: L2L3 5/5 5/5 Knee flexion: S1 5/5 5/5 Knee extension: L3,L4 5/5 5/5 Dorsiflexion: L4,L5 5/5 5/5 Plantarflexion: S1 5/5 5/5 EHL: L5 5/5 5/5 Sensory: Sensory exam to light touch is reduced in the right L5 and S1 dermatomal distributions in the distal leg. Reflexes: Deep tendon reflexes, Right 2+ patellar, 2+ Achilles, Left 2+ patellar, 2+ Achilles, No ankle clonus. Sitting straight leg test Negative on the right Negative on the left. Wilder's test: Positive on the right Positive on the left. Modified Gaenslen's test Positive on the right Positive on the left. Pelvic Distraction Positive Pelvic Compression Positive Assessment: Martha Lawson is a 63 year old year-old female with: Numbness and tingling of both legs below knees (Primary) - EMG - ADULT/PEDS PSYCHOLOGY REFERRAL OP History of lumbar spinal fusion - EMG - ADULT/PEDS PSYCHOLOGY REFERRAL OP Chronic pain syndrome - EMG - ADULT/PEDS PSYCHOLOGY REFERRAL OP Fibromyalgia - EMG - ADULT/PEDS PSYCHOLOGY REFERRAL OP History of depression - ADULT/PEDS PSYCHOLOGY REFERRAL OP History of anxiety - ADULT/PEDS PSYCHOLOGY REFERRAL OP History of obsessive compulsive disorder - ADULT/PEDS PSYCHOLOGY REFERRAL OP History of posttraumatic stress disorder (PTSD) - ADULT/PEDS PSYCHOLOGY REFERRAL OP Other orders - Pregabalin 50 MG Oral Capsule (Lyrica); Take 1 capsule by mouth at night for 5 days then increaseto 1 capsule twice daily. Plan: Complex pain pattern with strong features of chronic bilateral SIJ pain and ?radicular vs neuropathy pain of her lower legs. Will defer interventions at this time while we obtain additional diagnostics. Due to nonspecificity of the lower leg numbness/tingling will order an EMG. Awaiting lumbar MRI on 01/22/2024. May consider therapeutic DARRYL vs. Bilateral SIJ corticosteroid or RFA vs. SCS trial moving forward. Referral to pain psychology for consideration of pain CBT. Prior failure of gabapentin due to severe dry mouth. Will start on pregabalin 50mg with advancementto BID dosing. Risks, benefits, alternatives to pharmacotherapy reviewed at length including the most common side effects. The patient was provided the opportunity to ask questions which were answered to his voiced understanding. The patient has opted to proceed following this discussion. Follow-up in 2-3 months to review findings and create a plan moving forward. I spent a total of Greater than 55 mins (exact time 56 mins) on the date of service in preparation,delivery, and documentation of the care provided to Martha Lawson excluding any time spent in the performance of separately billed services or time spent by another provider/QHP. Chris Rea DO [facility] [address] [facility] [place] [address] documented in this encounter Nursing Notes * Anastasiya Cho LPN - 01/09/2024 1:36 PM EST Patient here for low back pain, numbness in b/l feet and shins No recent PT Hx of lumbar surgery x3-most recent 2014 Hx of injections MRI scheduled for 01/21 documented in this encounter Plan of Treatment Upcoming Encounters Date Type Department Care Team (Late st Contact Info) Description 01/13/2024 2:30 PM EST Telemedicine Psychology Jamal Silva 9 [place] [address] Roly Miller LCSW 9 [place] [address] 01/22/2024 2:30 PM EST Imaging Radiology [facility] 1st [facility] 132 [facility] [place] [address] 01/28/2024 3:20 PM EST Office Visit Dermatology, [place] [address] [place] [address] Yessi Morton PA-C [address] [place] [address] [place] [address] 03/16/2024 2:30 PM EST Telemedicine Psychiatry Dario [place] [address] [place] [address] Brooke Deluca CRNP [address] [place] [address] 03/30/2024 1:30 PM EST Imaging Radiology, [facility] [address] [place] [address] 04/02/2024 11:25 AM EST Office Visit [facility], [facility] 132 [facility] [place] [address] Chris Rea DO 132 [facility] [place] [phone] 04/03/2024 12:10 PM EST Office Visit Family Practice, [facility] [address] [place] [address] Elida Lance, [address] [place] [address] 10/07/2024 2:40 PM EDT Telemedicine Endocrinology Jam[address] [place] [address] Daniel Franco MD [address] [place] [address] 10/15/2024 3:30 PM EDT Office Visit Neurology Nina [place] [address] [facility] [address] Mariya Harding PA-C 21 [place] [address] Scheduled Referrals Name Type Priority Associated Diagnoses Orde r Schedule ADULT/PEDS PSYCHOLOGY REFERRAL OP Referral Within 10 days (routine) History of lumbar spinal fusion Chronic pain syndrome Fibromyalgia Numbness and tingling of both legs below knees History of depression History of anxiety History of obsessive compulsive disorder History of posttraumatic stress disorder (PTSD) Ordered: 01/09/2024 Health Maintenance Due Date Last Done Comments [...] Additional history exists CKD HGB USE SMARTSET 78785 10/02/202410/02, 08/14/2022, 03/16/2022, Additional history exists CKD PHOS USE SMARTSET 99935 10/17/202410/02, 03/16/2022, 02/09/2021, Additional history exists Depression [...] this encounter Medical Devices Implanted Type Area Tree Pruner Device Identifier Shelf Expiration Date Model / Serial / Lot Graft Infuse Bone Sm [id number] - [id number] Implanted:Qt y: 1 on 02/22/2012 at [place] [facility] N/A: Spine Lumbar MEDTRONIC : NEUROLOGIC PAIN 08/01/2014 [id number] / / [id number] Screw 6x45 Poly Si [id number] - [id number] Implanted:Qt y: 2 on 02/22/2012 at OR [facility] N/A: Spine Lumbar JNJ : ETHICON CARDIOVATIONS [id number] / / Screw 7x35 Poly Si [id number] - [id number] Implanted:Qt y: 2 on 02/22/2012 at OR [facility] N/A: Spine Lumbar JNJ : ETHICON CARDIOVATIONS [id number] / / Asif 5.5x55 Ti Prbnt [id number] - [id number] Implanted:Qt y: 2 on 02/22/2012 at OR [facility] N/A: Spine Lumbar JNJ : DEPUY SPINE [id number] / / Screw Set Sng Inner [id number] - [id number] Implanted:Qt y: 4 on 02/22/2012 at OR [facility] N/A: Spine Lumbar JNJ : DEPUY SPINE [id number] / / Cage 28x8 Leopard [id number] - [id number] Implanted:Qt y: 1 on 02/22/2012 at OR [facility] N/A: Spine Lumbar JNJ : ETHICON CARDIOVATIONS [id number] / / Implant Brst Mod Cls Pro 360cc - [id number] Implanted:Qt y: 1 on 11/12/2012 at OR [facility] Right: Breast MENTOR KRISSY 09/11/2017 350-7360 / [id number] / [id number] Implant Brst Mod Cls Pro 360cc - [id number] Implanted:Qt y: 1 on 11/12/2012 at OR [facility] Left: Breast MENTOR KRISSY 08/12/2017 350-7360 / [id number] / [id number] 4.0 X 14 Variable Self Starting Screw Implanted:Qt y: 4 on 02/05/2020 by Luis Eduardo Ross MD at OR [facility] N/A: Spine Cervical KWADWO [id number] / / 1 Level 20mm [place] View Plate Implanted:Qt y: 1 on 02/05/2020 by Luis Eduardo Ross MD at OR [facility] N/A: Spine Cervical KWADWO [id number] / / [id number] ree Alcutian Implanted:Qt y: 1 on 02/05/2020 by Luis Eduardo Ross MD at OR [facility] N/A: Spine Cervical KWADWO [id number] / / Description:alctuian cage 2.5cc Vitoss Bimodal Foam Pack Implanted:Qt y: 1 on 02/05/2020 by Luis Eduardo Ross MD at OR [facility] N/A: Spine Cervical KWADWO [id number] 11/29/20206474-7399 / [id number] / [id number] Tishing Andrzej One - [id number] Implanted:Qt y: 1 on 08/31/2022 by Chico Perry MD at OR [facility] N/A: Vagina [employer] 08/10/2023 [id number] / / [id number] documented as of this encounter Visit Diagnoses Diagnosis Numbness and tingling of both legs below knees- Primary Disturbance of skin sensation History of lumbar spinal fusion Chronic pain syndrome Fibromyalgia Mylagia and myositis, unspecified History of depression Personal history of other mental disorder History of anxiety Personal history of other mental disorder History of obsessive compulsive disorder Personal history of neurosis History of posttraumatic stress disorder (PTSD) documented in this encounter Advance Directives * [...] and were consensually agreed upon. Care Teams Follow Up Specialist Relationship Specialty Start Date End Date Elida Lance DO [address] [place] [facility] [place] [address] PCP - General Family Medicine 11/03/19 documented as of this encounter
--- OUTSIDE RECORDS SUMMARY | 2024-06-26 12:57 | External Medical Summary | Summary of Care ---
Author Name Unknown Organization [facility] Address [address] [facility] [place] [address] Phone [phone] Care Team Providers Care Chemistry Specialist Name Role Phone Elida Lance DO Primary Care Provider Reason for Visit * Reason Comments Follow Up Anxiety Depression * - Authorized Specialty Diagnoses / Procedures Referred By Traci rizzo Referred To Contact Referral ID Status Reason Start Date Expiration Date V isits Requested Visits Authorized [id number] Authorized 11/03/2023 11/01/2024 999 [id number] Encounter Details Date Type Department Care Team (Late st Contact Info) Description 01/13/2024 2:30 PM EST Telemedicine Psychology Jamal Silva [address] [place] [address] Roly Miller, DIAMOND POWDER MIXER [address] [place] [address] Borderline personality disorder (HCC)* Allergies Active Allergy Reactions Criticality Noted Date Comments Nsaids 02/01/2020 Hx gastric bypass Other Allergy (See Comments) Rash Medium 013 Dermabond prineo Penicillins 10/04/1999 Rash, last dose was in her 20's Sulfa Antibiotics 10/04/1999 Rash in her early 20's documented as of this encounter (statuses as of 01/13/2024) Medications MULTIVITAMINS PO CAPS one daily Active [...] 3 01/02/2024 4:29 PM EDT 4 Active traZODone HCl 150 MG Oral Tablet (Desyrel) Take 1 Tablet by mouth at bedtime. 90 Tablet 1 10/18/2023 2:54 PM EDT 4 Active Trintellix 20 MG Oral Tablet (Vortioxetine HBr) Take 1 Tablet by mouth in the morning. 90 Tablet 1 12/16/2023 9:13 AM EDT 4 Active LORazepam 0.5 MG Oral Tablet (Ativan) Take 1 Tablet by mouth as needed for Anxiety. 15 Tablet 2 07/19/2023 8:50 AM EDT 4 Active Metoprolol Tartrate 25 MG Oral Tablet (Lopressor)Indic ations:HTN, goal below 140/90 TAKE ONE-HALF TABLET BY MOUTH IN THE MORNING AND ONE-HALF TABLET BEFORE BEDTIME 90 Tablet 1 10/30/2023 11:49 AM EDT 4 Active Alendronate Sodium 70 [...] 3 01/09/2024 4:06 PM EST 4 Active documented as of this encounter (statuses as of 01/13/2024) Active Problems Problem Noted Date Diagnosed Date [...] disease), lumbar 11/21/19 12 MEYER Confirmation Research Other*[id number] 06/11/2009 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 B12 malabsorption s/p gastric bypass 07/14/2002 Allergic rhinitis 02/12/2002 Dyslipidemia, goal LDL below 130 12/04/2001 Chronic rhinitis HTN, goal below 140/90 Spinal stenosis, lumbar Spondylolisthesis documented as of this encounter (statuses as of 01/13/2024) Resolved Problems Problem Noted Date Diagnosed Date [...] as of this encounter (statuses as of 01/13/2024) Immunizations Name Administration Dates Next Due COVID-19 [...] No 10/23/2023 Does the household have a [facility] source of income? (Household - for ages [...] this encounter Progress Notes * Roly Miller, DIAMOND POWDER MIXER - 01/13/2024 2:15 PM EST Patient location: HOME. I was not in a hospital or clinic location. After connecting through [employer], patient was verified with two unique identifiers. 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 Methods to assure confidentiality were taken. Patient acknowledged consent and understanding of privacy and security of the Telemedicine visit. The patient agreed to participate. Start Time: 2:15 pm Stop Time: 2:45 pm Total direct time: 30 minutes BEHAVIORAL MEDICINE RETURN VISIT PROGRESS NOTE Psychology Jamal Silva [address] [facility] [address] 01/13/2024 2:15 PM TYPE OF VISIT: Individual DIAGNOSIS: Borderline personality disorder (HCC) (Primary) REASON FOR SESSION: Individual therapy Session #: 19 SESSION FOCUS: depression and anxiety NOTES: Therapist met with patient to complete an individual session. Patient processed depression and anxiety. Patient denied any SI/HI. Patient Patient denied any self-harm. Patient reported she spoke to the psychiatrist and has been prescribed Bupropion HCl ER (SR) and reported she is hopeful, as the patient stated, "It helped me get through a bump of depression in the past". Patient reported she saw the pain specialist and was prescribed Lyrica. Patient stated, "I still miss [place]". Patient reported isolating at home, due to numerous reasons, but stated, "It's okay because I don'twant to leave'. Patient reported on a good note she had a nice conversation with an elderly lady, but stated she believes, "She is socially awkward". Patient reported she has arbitration hearing this afternoon, but is still not concerned. Patient reported she is going to her stepmom's house for Thanksgiving, which the patient reported is a tradition. Patient reported making a shadow box and picture to remember [place]. Patient stated, "I canlook at it and remember", and process trip without feeling sad and it's something positive". Patient and therapist identified the following strengths [...] of anxietysince the last session with this remote mortgage underwriter. Goal: Improved self-management of depression and [...] (KATE-7): 2 (Minimal 0-4) C-SSRS administered: Yes [place] Suicide Severity Rating Scale Results 01/13/2024 14:18 [place] SUICIDE SEVERITY RATING SCALE (C-SSRS) Have [...] same as last session (see note dated 01/02/2024 for further details) Safety Plan: Crisis Plan [...] Professional Resources: 1. Local Crisis Services: For [facility] 2. [facility] Division of Psychiatry: [phone] 3. National Suicide Prevention Lifeline: or 148 4. National Crisis Text Line: Text HOME to 083284 5. 911 or proceed to the nearest [...] ED, hotlines): Suicide and Crisis Lifeline - 988, [facility] Crisis Contact [place] [facility], and Clinic number: [phone] and Suicide Safety Plan Signature Obtained on [...] clinical assessment: PHQ-9 Adult Data KATE-7 Data [place] Suicide Screen Data Discharge Discussed with patient: Patient continues to need treatment Collaboration of Care: Yes, provider within [facility], information is shared automatically in medical record Is this the patients' initial treatment plan? No FOLLOW-UP PLAN: Return: 2 weeks Appointment: 01/27/2024 at 2:30 pm Action Plan: 1. Continue Cognitive Behavioral Therapy 2. Continue medication management with ANEUDY Maciel Treatment plan reviewed with the patient. Patient voices understanding and concurs with plan. PATIENT EDUCATION: Verbal & written Roly Miller LCSW Division of Psychiatry & Behavioral Medicine [facility] [phone] National Suicide Prevention Lifeline : 988 Crisis Textline : Text "HOME" to 608622 to connect with a crisis counselor Crisis Numbers by County: [facility] - Emergency Services Angelique (0-094-2-YOU CAN) resolve Crisis Network Han & Fadumo . The Open Door - Crisis Intervention [place] [facility] Crisis Help-Line [facility] - Crisis Intervention Services [facility] Service Access [employer] - Crisis Intervention [place] Choose option [address] [place] [address] of Family Law Paralegal Carline Lopez & Zeeshan Crisis Intervention [facility] - Mental Health Crisis Yeung [facility] - Crisis Intervention [place] [facility] - Crisis Intervention Jonathan Whitehead Potter - Crisis Line Matthias Montes [place]ike - Mental Health Crisis Hotline [place] [facility] - Crisis Services Gladys [facility] Center [place] Service Access [employer] - Crisis Intervention Krysten - Mental Health Crisis Intervention Services N[facility] MH/ID Program [place], [place], [place], [place] - Crisis System [place] [facility] Human Services - Crisis Hotline Staci (3-636-988-HELP) [facility] - Crisis Intervention Heard [facility] - Crisis Intervention Services [place] [facility] - Crisis Services Toni [facility] - Crisis Center [place] [phone] [facility] - Crisis Hotline Radha (8:30 am-5:00 pm) [place] (after 5:00 pm, weekends & holidays) Maldonado Count Includes The [facility] Crisis Intervention Program [place] [facility] Mental Health Crisis Line LamarAlison and Sandra [facility] Crisis Tunde & Brittni [facility] - Crisis Intervention [place] [facility] Mental Health Crisis Service [place] [facility] - Crisis Intervention [place] [facility] - Crisis Intervention [place] & [place] [facility] - Help Line [facility] MH/ID Program [facility] - Crisis Intervention [place] [facility] - Crisis Intervention [place] [facility] Emergency Services, [facility] - Crisis Intervention Bon[facility] Behavioral Health - Emergency Services [place] - Crisis Line [place] - DBHIDS - Suicide and Crisis Intervention Hotline [facility] - Crisis/ Emergency Services [place] [facility] - Emergency Contact Line [place] [facility] [place] - Crisis Line Hardy ext. 1 [facility] Action - Crisis Intervention Hotline [place] [facility] Crisis Intervention Services documented in this encounter Plan of Treatment Upcoming Encounters Date Type Department Care Team (Late st Contact Info) Description 01/22/2024 2:30 PM EST Imaging Radiology [facility]st [facility] [address] [facility] [place] [address] 01/27/2024 2:30 PM EST Telemedicine Psychology Jamal Silva [address] [place] [address] Roly Miller LCSW [address] [place] [address] 01/28/2024 3:20 PM EST Office Visit Dermatology, [address] [address] Yessi Morton PA-C [address] [place] [address] [place] [address] 02/04/2024 2:20 PM EST NeuroDiagnostic Study Neurophysiology [facility] [address] [place] [address] Erin Garcia MD [address] [place] [address] 03/16/2024 2:30 PM EST Telemedicine Psychiatry Jamal Silva [address] [place] [address] Brooke Deluca CRNP [address] [place] [address] 03/30/2024 1:30 PM EST Imaging Radiology, [place] [address] [facility] [place] [address] 04/02/2024 11:25 AM EST Office Visit Interventional [facility] Center, [facility] [address] [facility] [place] [address] Chris Rea, DO [address] [place] [phone] 04/03/2024 12:10 PM EST Office Visit [facility] [address] [facility] [place] [address] Elida Lance, DO [address] [place] [address] 10/07/2024 2:40 PM EDT Telemedicine Endocrinology Jam[address] [place] [address] Daniel Franco MD [address] [facility] [address] [place], [place] [address] 10/15/2024 3:30 PM EDT Office Visit Neurology [facility] [address] [facility], [place] [phone] Mariya Harding PA-C [address] [place] [address] Health Maintenance Due Date Last Done Comments [...] Additional history exists CKD HGB USE SMARTSET 66463 10/02/202410/02, 08/14/2022, 03/16/2022, Additional history exists CKD PHOS USE SMARTSET 68892 10/17/202410/02, 03/16/2022, 02/09/2021, Additional history exists Depression [...] encounter Medical Devices Implanted Type Area Office Specialist Device Identifier Shelf Expiration Date Model / Serial / Lot Graft Infuse Bone Sm [id number] - [id number] Implanted:Qt y: 1 on 02/22/2012 [place] [facility] N/A: Spine Lumbar [employer] : NEUROLOGIC PAIN 08/01/2014 [id number] / / [id number] Screw 6x45 Poly Si [id number] - [id number] Implanted:Qt y: 2 on 02/22/2012 at [place] [facility] N/A: Spine Lumbar JNJ : ETHICON CARDIOVATIONS [id number] / / Screw 7x35 Poly Si [id number] - [id number] Implanted:Qt y: 2 on 02/22/2012 at [place] [facility] N/A: Spine Lumbar JNJ : ETHICON CARDIOVATIONS [id number] / / Asif 5.5x55 Ti Prbnt [id number] - [id number] Implanted:Qt y: 2 on 02/22/2012 at [place] [facility] N/A: Spine Lumbar JNJ : DEPUY SPINE [id number] / / Screw Set Sng Inner [id number] - [id number] Implanted:Qt y: 4 on 02/22/2012 at [place] [facility] N/A: Spine Lumbar JNJ : DEPUY SPINE [id number] / / Cage 28x8 Leopard [id number] - [id number] Implanted:Qt y: 1 on 02/22/2012 at [place] [facility] N/A: Spine Lumbar JNJ : ETHICON CARDIOVATIONS [id number] / / Implant Brst Mod Cls Pro 360cc - [id number] Implanted:Qt y: 1 on 11/12/2012 at [place] [facility] Right: Breast MENTOR KRISSY 09/11/2017 350-[facility] / [id number] / [id number] Implant Brst Mod Cls Pro 360cc - [id number] Implanted:Qt y: 1 on 11/12/2012 at [place] [facility] Left: Breast MENT[employer] KRISSY 08/12/2017 350-[facility] / [id number] / [id number] 4.0 X 14 Variable Self Starting Screw Implanted:Qt y: 4 on 02/05/2020 by Luis Eduardo Ross MD at OR [facility] N/A: Spine Cervical KWADWO [id number] A / / 1 Level 20mm [place] View Plate Implanted:Qt y: 1 on 02/05/2020 by Luis Eduardo Ross MD at OR [facility] N/A: Spine Cervical KWADWO [id number] / / [id number] Alcutian Implanted:Qt y: 1 on 02/05/2020 by Luis Eduardo Ross MD at OR [facility] N/A: Spine Cervical KWADWO [id number] / / Description:alctuian cage 2.5cc Vitoss Bimodal Foam Pack Implanted:Qt y: 1 on 02/05/2020 by Luis Eduardo Ross MD at OR [facility] N/A: Spine Cervical KWADWO [id number] 11/29/2020 0186-1836 / [id number] / [id number] Rick Wall - [id number] Implanted:Qt y: 1 on 08/31/2022 by Chico Perry MD at OR [facility] N/A: Vagina [employer] 08/10/2023 [id number] / / [id number] documented as of this encounter Visit Diagnoses [...] and were consensually agreed upon. Care Teams Chemistry Specialist Relationship Specialty Start Date End Date Elida Lance DO [address] [place] [facility] [place] [address] PCP - General Family Medicine 11/03/19 documented as of this encounter
--- OUTSIDE RECORDS SUMMARY | 2024-06-26 12:57 | External Medical Summary | Summary of Care ---
Author Name Unknown Organization [facility] Address [address] [facility] [place] [address] Phone [phone] Care Team Providers Care Parts Fabricator Name Role Phone Elida Lance DO Primary Care Provider [phone] Reason for Visit * Reason Onset Date Comments Appointment 01/10/2024 I called to lew beckham emg appt, lmam. Encounter Details Date Type Department Care Team (Late st Contact Info) Description 01/10/2024 Telephone Neurophysiology [address] [place] [address] Specified, Zz No Resource [address] [place] [address] Appointment (I called to schedule emg appt... Allergies Active Allergy Reactions Criticality Noted Date Comments Nsaids 02/01/2020 Hx gastric bypass Other Allergy (See Comments) Rash Medium 013 Dermabond prineo Penicillins 10/04/1999 Rash, last dose was in her 20's Sulfa Antibiotics 10/04/1999 Rash in her early 20's documented as of this encounter (statuses as of 01/10/2024) Medications MULTIVITAMINS PO CAPS one daily Active [...] as of this encounter (statuses as of 01/10/2024) Active Problems Problem Noted Date Diagnosed Date [...] disease), lumbar 11/21/19 12 [facility] Confirmation Research Other*[id number] 11/2009 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 B12 malabsorption s/p gastric bypass 07/14/2002 Allergic rhinitis 02/12/2002 Dyslipidemia, goal LDL below 130 12/04/2001 Chronic rhinitis HTN, goal below 140/90 Spinal stenosis, lumbar Spondylolisthesis documented as of this encounter (statuses as of 01/10/2024) Resolved Problems Problem Noted Date Diagnosed Date [...] as of this encounter (statuses as of 01/10/2024) Immunizations Name Administration Dates Next Due COVID-19 [...] No 08/14/2013 3:36 PM EDT Tarik Gold, ESPERANZA documented in this encounter Miscellaneous Notes * Telephone Encounter - Ricarda Mcduffie OSA - 01/10/2024 9:48 AM EST I called to schedule emg appt, lmam. documented in this encounter Plan of Treatment Upcoming Encounters Date Type Department Care Team (Late st Contact Info) Description 01/13/2024 2:30 PM EST Telemedicine Psychology Jamal Silva [address] [place] [address] Roly Miller LCSW 9 [place] [address] 01/22/2024 2:30 PM EST Imaging Radiology [facility] 1st [facility] [address] [facility] [place] [address] 01/28/2024 3:20 PM EST Office Visit Dermatology, [address] [id number] Yessi Morton PA-C [address] [place] [address] [place] [address] 03/16/2024 2:30 PM EST Telemedicine Psychiatry Jamal Silva [address] [place] [address] Brooke Deluca CRNP 9 [place] [address] 03/30/2024 1:30 PM EST Imaging Radiology, [address] [place] [address] 04/02/2024 11:25 AM EST Office Visit Interventional [facility] Center, [facility] [place] [address] Chris Rea DO [address] [facility] [place] [address] 04/03/2024 12:10 PM EST Office Visit [facility] [address] [facility] [place] [address] Elida Lance, DO [address] [place] [address] 10/07/2024 2:40 PM EDT Telemedicine Endocrinology [address] [place] [address] Daniel Franco MD [address] [facility] [place] [id number] 10/15/2024 3:30 PM EDT Office Visit Neurology [facility] 200 [place] [address] Mariya Harding PA-C [address] [facility] [place] [address] Health Maintenance Due Date Last Done Comments Fecal Occult Blood Test 2006 Sigmoidoscopy 2006 Mammogram 08/09/2017 08/09/2016, 0609/2015, 08/05/2014, Additional history exists Colonoscopy 01/14/2022 01/15/2012, 01/15/2012 COVID-19 Vaccine ( season) 2023 12/08/2020, 11/17/2020 Influenza Vaccine (FLU shot) (#1) 2023 03/20/2023, 01/31/2022, 02/09/2021, Additional history exists Albumin/Creatinine Ratio 03/21/202403/21/2 024, 02/03/2019, 09/05/2017, Additional history exists GFR 04/19/2024 10/18/2023, 080 03/2023, 03/20/2023, Additional history exists CKD HGB USE SMARTSET 93326 10/02/202410/02, 08/14/2022, 03/16/2022, Additional history exists CKD PHOS USE SMARTSET 82532 10/17/202410/02, 03/16/2022, 02/09/2021, Additional history exists Depression [...] this encounter Medical Devices Implanted Type Area It Risk And Assurance Senior Manager Device Identifier Shelf Expiration Date Model / Serial / Lot Graft Infuse Bone Sm [id number] - [id number] Implanted:Qt y: 1 on 02/22/2012 at OR [facility] N/A: Spine Lumbar MED[employer] : NEUROLOGIC PAIN 08/01/2014 [id number] / / [id number] Screw 6x45 Poly Si [id number] - [id number] Implanted:Qt y: 2 on 02/22/2012 at OR [facility] [place] N/A: Spine Lumbar JNJ : ETH[employer]ON [employer] [id number] / / Screw 7x35 Poly Si [id number] - [id number] Implanted:Qt y: 2 on 02/22/2012 at OR [facility] [place] N/A: Spine Lumbar JNJ : ETH[employer]ON [employer] [id number] / / Asif 5.5x55 Ti Prbnt [id number] - [id number] Implanted:Qt y: 2 on 02/22/2012 at OR [facility] [place] N/A: Spine Lumbar JNJ : DEPUY SPINE [id number] / / Screw Set Sng Inner [id number] - [id number] Implanted:Qt y: 4 on 02/22/2012 at OR [facility] [place] N/A: Spine Lumbar JNJ : DEPUY SPINE [id number] / / Cage 28x8 Leopard [id number] - [id number] Implanted:Qt y: 1 on 02/22/2012 at OR [facility] [place] N/A: Spine Lumbar JNJ : ETH[employer]ON [employer]ATIONS [id number] / / Implant Brst Mod Cls Pro 360cc - [id number] Implanted:Qt y: 1 on 11/12/2012 at OR [facility] [place] Right: Breast MENTOR KRISSY 09/11/2017 [id number] / [id number] / [id number] Implant Brst Mod Cls Pro 360cc - [id number] Implanted:Qt y: 1 on 11/12/2012 at OR [facility] [place] Left: Breast MENTOR KRISSY 08/12/2017 350-7360 / [id number] / [id number] 4.0 X 14 Variable Self Starting Screw Implanted:Qt y: 4 on 02/05/2020 by Luis Eduardo Ross MD at OR [facility] N/A: Spine Cervical KWADWO [id number] A / / 1 Level 20mm [place] View Plate Implanted:Qt y: 1 on 02/05/2020 by Luis Eduardo Ross MD at OR [facility] N/A: Spine Cervical KWADWO [id number] / / [id number] ree Alcutian Implanted:Qt y: 1 on 02/05/2020 by Luis Eduardo Ross MD at OR [facility] N/A: Spine Cervical KWADWO [id number] / / Description:alctuian cage 2.5cc Vitoss Bimodal Foam Pack Implanted:Qt y: 1 on 02/05/2020 by Luis Eduardo Ross MD at OR [facility] N/A: Spine Cervical KWADWO [id number] 11/29/2020 0283-7600 / [id number] / [id number] Rick Wall - [id number] Implanted:Qt y: 1 on 08/31/2022 by Chico Perry MD at OR [facility] N/A: Vagina [employer] 08/10/2023 [id number] / / [id number] documented as of this encounter Advance Directives [...] and were consensually agreed upon. Care Teams Parts Fabricator Relationship Specialty Start Date End Date Elida Lance DO [address] [facility] [place] [address] PCP - General Family Medicine 11/03/19 documented as of this encounter
--- OUTSIDE RECORDS SUMMARY | 2024-06-26 12:57 | External Medical Summary | Summary of Care ---
Author Name Unknown Organization [facility] Address [address] [facility] [place] [address] Phone [phone] Care Team Providers Care Professional Model Name Role Phone Elida Lance DO Primary Care Provider [phone] Reason for Visit * Reason Onset Date Comments Appointment 01/15/2024 Encounter Details Date Type Department Care Team (Late st Contact Info) Description 01/15/2024 Telephone Radiology [facility] 1st [facility] [address] [facility] [place] [address] Raven Lyn, RT (M) Appointment Allergies Active Allergy Reactions Criticality Noted Date Comments Nsaids 02/01/2020 Hx gastric bypass Other Allergy (See Comments) Rash Medium 013 Dermabond prineo Penicillins 10/04/1999 Rash, last dose was in her 20's Sulfa Antibiotics 10/04/1999 Rash in her early 20's documented as of this encounter (statuses as of 01/15/2024) Medications MULTIVITAMINS PO CAPS one daily Active [...] mouth at bedtime. 90 Tablet 1 4 Active documented as of this encounter (statuses as of 01/15/2024) Active Problems Problem Noted Date Diagnosed Date [...] disease), lumbar 11/21/19 12 [facility] Confirmation Research Other*[id number] 06/0 11/2009 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 B12 malabsorption s/p gastric bypass 07/14/2002 Allergic rhinitis 02/12/2002 Dyslipidemia, goal LDL below 130 12/04/2001 Chronic rhinitis HTN, goal below 140/90 Spinal stenosis, lumbar Spondylolisthesis documented as of this encounter (statuses as of 01/15/2024) Resolved Problems Problem Noted Date Diagnosed Date [...] as of this encounter (statuses as of 01/15/2024) Immunizations Name Administration Dates Next Due COVID-19 [...] encounter Miscellaneous Notes * Telephone Encounter - Raven Lyn RT (M) - 01/15/2024 3:16 PM EST Name: Martha Lawson Do you have any of the following: Pacemaker, stents, heart valves, aneurysm clips? Yes cage from back surgery Have you ever worked with metal or have you ever gotten metal in your eyes? No Have you had a colonoscopy in the last 30 days? No On dialysis? No Do you have any dermals or body piercing's? No or ? No Do you wear an insulin pump or diabetic monitor? No RT Muriel (M) documented in this encounter Plan of Treatment Upcoming Encounters Date Type Department Care Team (Late st Contact Info) Description 01/22/2024 2:30 PM EST Imaging Radiology [address] [place] [address] 01/27/2024 2:30 PM EST Telemedicine Psychology Jamal Silva [address] [place] [address] Roly Miller, GENERAL MERCHANDISE MANAGER [address] [place] [address] 01/28/2024 3:20 PM EST Office Visit Dermatology, [address] [address] Yessi Morton PA-C [address] [place] [address] [place] [address] 02/04/2024 2:20 PM EST NeuroDiagnostic Study Neurophysiology [facility] [place] [address] [place] [address] Erin Garcia MD [address] [place] [address] 03/16/2024 2:30 PM EST Telemedicine Psychiatry Jamal Silva [address] [place] [address] Brooke Deluca CRNP [address] [place] [address] 03/30/2024 1:30 PM EST Imaging Radiology, [facility] [address] [facility] [place], [place] [address] 04/02/2024 11:25 AM EST Office Visit Interventional Pain Center, [facility] [address] [facility] [place] [address] Chris Rea, DO [address] [place] [address] 04/03/2024 12:10 PM EST Office Visit Family Practice, [facility] [address] [place] [address] Elida Lance, [address] [place] [address] 10/07/2024 2:40 PM EDT Telemedicine Endocrinology [address] [place] [address] Daniel Franco MD [address] [facility] [place] [address] 10/15/2024 3:30 PM EDT Office Visit Neurology [facility] 200 [facility] [place] [address] Mariya Harding PA-C [address] [facility] [place] [address] Health Maintenance Due Date Last Done Comments [...] Additional history exists CKD HGB USE SMARTSET 93757 10/02/202410/02, 08/14/2022, 03/16/2022, Additional history exists CKD PHOS USE SMARTSET 98609 10/17/202410/02, 03/16/2022, 02/09/2021, Additional history exists Depression [...] this encounter Medical Devices Implanted Type Area Interface Designer Device Identifier Shelf Expiration Date Model / Serial / Lot Graft Infuse Bone Sm [id number] - [id number] Implanted:Qt y: 1 on 02/22/2012 at OR [facility] N/A: Spine Lumbar [employer] : NEUROLOGIC PAIN 08/01/2014 [id number] / / [id number] Screw 6x45 Poly Si [id number] - [id number] Implanted:Qt y: 2 on 02/22/2012 at OR [facility] N/A: Spine Lumbar JNJ : ETH[employer] [id number] / / Screw 7x35 Poly Si [id number] - [id number] Implanted:Qt y: 2 on 02/22/2012 at OR [facility] N/A: Spine Lumbar JNJ : ETH[employer]ON [employer]ATIONS [id number] / / Asif 5.5x55 Ti Prbnt [id number] - [id number] Implanted:Qt y: 2 on 02/22/2012 at OR [facility] N/A: Spine Lumbar JNJ : DEPUY SPINE [id number] / / Screw Set Sng Inner [id number] - [id number] Implanted:Qt y: 4 on 02/22/2012 at OR [facility] N/A: Spine Lumbar JNJ : DEPUY SPINE [id number] / / Cage 28x8 Leopard [id number] - [id number] Implanted:Qt y: 1 on 02/22/2012 at OR [facility] N/A: Spine Lumbar JNJ : [employer] [id number] / / Implant Brst Mod Cls Pro 360cc - [id number] Implanted:Qt y: 1 on 11/12/2012 at OR [facility] Right: Breast MENTOR KRISSY 09/11/2017 350-7360 / [id number] / [id number] Implant Brst Mod Cls Pro 360cc - [id number] Implanted:Qt y: 1 on 11/12/2012 at OR [facility] Left: Breast MENTOR KRISSY 08/12/2017 350-7360 / [id number] / [id number] 4.0 X 14 Variable Self Starting Screw Implanted:Qt y: 4 on 02/05/2020 by Luis Eduardo Ross MD at OR [facility] N/A: Spine Cervical KWADWO [id number] A / / 1 Level 20mm [place] View Plate Implanted:Qt y: 1 on 02/05/2020 by Luis Eduardo Ross MD at OR [facility] N/A: Spine Cervical KWADWO [id number] / / [id number] ree Alcutian Implanted:Qt y: 1 on 02/05/2020 by Luis Eduardo Rsos MD at OR [facility] N/A: Spine Cervical KWADWO [id number] / / Description:alctuian cage 2.5cc Vitoss Bimodal Foam Pack Implanted:Qt y: 1 on 02/05/2020 by Luis Eduardo Ross MD at OR [facility] N/A: Spine Cervical KWADWO [id number] 11/29/2020 7928-7095 / [id number] / [id number] Sling Andrzej One - [id number] Implanted:Qt y: 1 on 08/31/2022 by Chico Perry MD at OR [facility] N/A: Vagina [employer] 08/10/2023 [id number] / / [id number] documented as of this encounter Advance Directives [...] and were consensually agreed upon. Care Teams Professional Model Relationship Specialty Start Date End Date Elida Lance DO [address] [facility] [place] [phone] PCP - General Family Medicine 11/03/19 documented as of this encounter
--- OUTSIDE RECORDS SUMMARY | 2024-06-26 12:57 | External Medical Summary | Summary of Care ---
Author Name Unknown Organization [facility] Address [address] [facility] [place] [address] Phone [phone] Care Team Providers Care Archivist Military History Name Role Phone Elida Lance DO Primary Care Provider Reason for Visit * Reason Comments Follow Up Anxiety Insomnia * - Authorized Specialty Diagnoses / Procedures Referred By Traci rizzo Referred To Contact Referral ID Status Reason Start Date Expiration Date V isits Requested Visits Authorized [id number] Authorized 11/03/2023 11/01/[phone] Encounter Details Date Type Department Care Team (Late st Contact Info) Description 01/02/2024 2:30 PM EDT Telemedicine Psychology Jamal Silva [address] [place] [address] Roly Miller, WIRE WINDING MACHINE TENDER [address] [place] [address] Borderline personality disorder (HCC)* Allergies Active Allergy Reactions Criticality Noted Date Comments Nsaids 02/01/2020 Hx gastric bypass Other Allergy (See Comments) Rash Medium 013 Dermabond prineo Penicillins 10/04/1999 Rash, last dose was in her 20's Sulfa Antibiotics 10/04/1999 Rash in her early 20's documented as of this encounter (statuses as of 01/02/2024) Medications Medication Sig Dispensed Refills Start Date [...] 06/07/2023 Active Lisinopril 2.5 MG Oral Tablet (Prinivil)Giancarlotio ns:HTN, goal below 140/90 Take 1/2 tablet [...] follow package directions 21 Tablet 11/01/2023 Active documented as of this encounter (statuses as of 01/02/2024) Active Problems Problem Noted Date Diagnosed Date [...] disease), lumbar 11/21/19 12 MEYER Confirmation Research Other*[id number] 11/2009 ADVANCE DIRECTIVE INFORMATION 10/08/2006 Overview: Yes, Patient instructed to provide copy of advance directive for provider to review and to be scanned into Electronic Medical Record 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 B12 malabsorption s/p gastric bypass 07/14/2002 Allergic rhinitis 02/12/2002 Dyslipidemia, goal LDL below 130 12/04/2001 Chronic rhinitis HTN, goal below 140/90 Spinal stenosis, lumbar Spondylolisthesis documented as of this encounter (statuses as of 01/02/2024) Resolved Problems Problem Noted Date Diagnosed Date Resolved Date Tobacco use disorder 10/03/2013 017 Kidney disease, chronic, sta ge III (GFR 30-59 ml/min) 2013 12/26/2016 Overview: Per CKD protocol #1 Joint pain, hip 02/17/2013 12/19/2017 Obesity, Class I, BMI 30.0-3 4.9 (see actual BMI) 05/26/2009 02/18/2020 Overview: Per Obesity Taxonomy Need for prophylactic hormon e replacement therapy (postmenopausal) 01/14/2008 09/02/2008 Hypertrophy of breast 04/17/20052016 ABDOMINAL PANNICULITIS 04/17/200512/03 [...] as of this encounter (statuses as of 01/02/2024) Immunizations Name Administration Dates Next Due COVID-19 mRNA, LNP-s, No Pre serve, 2-Dose Series (Reocar) 12/08/2020,11/17/2020 Pneumococcal Conjugate Vacc, 13 Valent (Prevnar) [...] as of this encounter Progress Notes * Roly Miller, BOUCHRA - 01/02/2024 2:27 PM EDT Patient location: HOME. I was [...] The patient agreed to participate. Start Time: 2:27 pm Stop Time: 2:58 pm Total direct time: 31 minutes BEHAVIORAL MEDICINE RETURN VISIT PROGRESS NOTE Psychology Jamal Silva [address] [facility] [address] 01/02/2024 2:27 PM TYPE OF VISIT: Individual DIAGNOSIS: Borderline personality disorder (HCC) (Primary) REASON FOR SESSION: Individual therapy Session #: 18 SESSION FOCUS: depression and anxiety NOTES: Therapist met with patient to complete an individual session. Patient processed depression and anxiety. Patient denied any SI/HI. Patient Patient denied any self-harm. Patient stated, "I think I am depressed". To this effect the patient reported she does not feel like doing the chores around and the house, but feels a sense of boredom. Patient reported she is able to push herself to do things and remains behaviorally activated. Patient reported evenings are the most difficult for her. Patient reported her mood is better during the evenings and worse in the day. Patient reported a lack of appetite, but the patient reported she is forcing herself to eat. Patient identified a possible correlation, as aforementioned in a previous session, how she has felt this way since she returned from her vacation in [place]. Patient reported she is going to send a message to her psychiatric prescriber regarding her decreased mood and medication regimen. Patient and therapist identified the following strengths [...] anxiety since the last session with this automobile service writer. Goal: Improved self-management of depression and [...] (KATE-7): 2 (Minimal 0-4) C-SSRS administered: Yes [place] Suicide Severity Rating Scale Results 01/02/2024 14:31 [place] SUICIDE SEVERITY RATING SCALE (C-SSRS) Have [...] same as last session (see note dated 12/12/2023 for further details) Safety Plan: Crisis Plan [...] number): Professional Resources: 1. Local Crisis Services: [facility] [address] Services 2. [facility] Division of Psychiatry: [phone] 3. [place] Suicide Prevention Lifeline: or 988 4. [place] Crisis Text Line: Text HOME to 232478 5. 911 or proceed to the nearest [...] hotlines): Suicide and Crisis Lifeline - 988, [facility] Crisis Contact [facility], and Clinic number: [phone] and Suicide Safety Plan Signature Obtained on [...] clinical assessment: PHQ-9 Adult Data KATE-7 Data [place] Suicide Screen Data Discharge Discussed with patient: Patient continues to need treatment Collaboration of Care: Yes, provider within [facility], information is shared automatically in medical record Is this the patients' initial treatment plan? No FOLLOW-UP PLAN: Return: 11 days Appointment: 01/13/2024 at 2:30 pm Action Plan: 1. Continue Cognitive Behavioral Therapy 2. Continue medication management with ANEUDY Maciel Treatment plan reviewed with the patient. Patient voices understanding and concurs with plan. PATIENT EDUCATION: Verbal & written Roly Miller LCSW Division of Psychiatry & Behavioral Medicine [facility] [phone] National Suicide Prevention Lifeline : 988 Crisis Textline : Text "HOME" to 542867 to connect with a crisis counselor Crisis Numbers by County: [place] - Emergency Services [facility] (3-855-9-YOU CAN) resolve Crisis Network Guille & Fadumo . The Open Door - Crisis Intervention [facility] Crisis Help-Line [facility] - Crisis Intervention Services [facility] Service Kuli Kuli. - Crisis Intervention [place] Choose option 1 [facility] of Booking Police Officer Carilne Lopez & Zeeshan Crisis Intervention [place] [facility] - Mental Health Crisis [facility] - Crisis Intervention [place] [facility] - Crisis Intervention Jonathan Whitehead [place] - Crisis Line Matthias Montes Pike - Mental Health Crisis Hotline [place] [facility] - Crisis Services Amelia [place] [facility] Crisis Center [place] Service Access MogiMe. - Crisis Intervention Krysten - Mental Health Crisis Intervention Services Nino [facility] MH/ID Program Joshua Myers Snyder, [place] - Crisis System [place] [facility] Human Services - Crisis Hotline Staci (1-738-876-HELP) [facility] - Crisis Intervention Vasyl [facility] - Crisis Intervention [facility] - Crisis Services T[facility] Behavioral Health - Crisis Center Stearns [phone] [facility] - Crisis Hotline Radha (8:30 am-5:00 pm) OR (after 5:00 pm, weekends & holidays) Jefry Chanel MuirJimenez [facility] Crisis Intervention Program [place] Mental Health Crisis Line Alison Newton and Sandra - [facility] Crisis Pender & Jay [facility] [place] [facility] - Crisis Intervention Carter [facility] Crisis Service [facility] - Crisis Intervention [employer] [facility] - Crisis Intervention Tom [place] & [place] [facility] - Help Centra [facility]/ID Program Keisha [facility] Crisis Intervention [place] [facility] - Crisis Intervention [place] [facility] Emergency Services, [facility] - Crisis Intervention [place] [facility] Behavioral Health - Emergency Services [facility] - Crisis Line [place] - DBHIDS - Suicide and Crisis Intervention Hotline [facility] - Crisis/ Emergency Services [place] [facility] - Emergency Contact Line [place] [facility] - Crisis Line Hardy ext. 1 [facility] Services [facility] - Crisis Intervention Hotline [facility] Crisis Intervention Services documented in this encounter Plan of Treatment Upcoming Encounters Date Type Department Care Team (Late st Contact Info) Description 01/09/2024 1:30 PM EST Office Visit Interventional Pain Center, [facility] [address] [facility] [place] [address] Chris Rea DO [facility] [place] [address] 01/13/2024 2:30 PM EST Telemedicine Psychology Jamal Silva [address] [place] [address] Roly Miller LCSW [address] [place] [address] 01/22/2024 2:30 PM EST Imaging Radiology [facility] 1st [facility] [address] [facility] [place] [address] 01/28/2024 3:20 PM EST Office Visit Dermatology, [address] [place] [address] Yessi Morton, FAM-C [address] [place] [address] [place] [address] 03/16/2024 2:30 PM EST Telemedicine Psychiatry Jamal Silva [address] [place] [address] Brooke Deluca CRNP [address] [place] [address] 03/30/2024 1:30 PM EST Imaging Radiology, [facility] [address] [facility] [place] [address] 04/03/2024 12:10 PM EST Office Visit Family [facility] [address] [place] [phone] Elida Lance, [address] [place] [address] 10/07/2024 2:40 PM EDT Telemedicine Endocrinology Jamal [address] [place] [address] Daniel Franco MD [address] [facility] [place] [id number] 10/15/2024 3:30 PM EDT Office Visit Neurology [facility] [address] [place] [address] Mariya Harding PA-C [address] [place] [address] Health Maintenance Due Date Last Done Comments [...] Additional history exists CKD HGB USE SMARTSET 68790 10/02/202410/02, 08/14/2022, 03/16/2022, Additional history exists CKD PHOS USE SMARTSET 47346 10/17/202410/02, 03/16/2022, 02/09/2021, Additional history exists Depression [...] encounter Medical Devices Implanted Type Area Senior Ios Developer Device Identifier Shelf Expiration Date Model / Serial / Lot Graft Infuse Bone Sm [id number] - [id number] Implanted:Qt y: 1 on 02/22/2012 [place] [facility] [place]: Spine Lumbar [employer] : NEUROLOGIC PAIN 08/01/2014 [id number] / / [id number] Screw 6x45 Poly Si [id number] - [id number] Implanted:Qt y: 2 on 02/22/2012 [place] [facility] [place]: Spine Lumbar JNJ : ETHICON C[employer]OVATIONS [id number] / / Screw 7x35 Poly Si [id number] - [id number] Implanted:Qt y: 2 on 02/22/2012 [place] [facility] [place]A: Spine Lumbar JNJ : ETHICON CARDIOVATIONS [id number] / / Asif 5.5x55 Ti Prbnt [id number] - [id number] Implanted:Qt y: 2 on 02/22/2012 [place] [facility] [place]A: Spine Lumbar JNJ : DEPUY SPINE [id number] / / Screw Set Sng Inner [id number] - [id number] Implanted:Qt y: 4 on 02/22/2012 [place] [facility] [place]A: Spine Lumbar JNJ : DEPUY SPINE [id number] / / Cage 28x8 Leopard [id number] - [id number] Implanted:Qt y: 1 on 02/22/2012 [place] [facility] [place]A: Spine Lumbar JNJ : ETHICON CARDIOVATIONS [id number] / / Implant Brst Mod Cls Pro 360cc - [id number] Implanted:Qt y: 1 on 11/12/2012 [place] [facility] Right: Breast MENTOR KRISSY 09/11/[address] [place] [address] / [id number] / [id number] Implant Brst Mod Cls Pro 360cc - [id number] Implanted:Qt y: 1 on 11/12/2012 [place] [facility] Left: Breast MENTOR KRISSY 08/12/[address] [place] [address] / [id number] / [id number] 4.0 X 14 Variable Self Starting Screw Implanted:Qt y: 4 on 02/05/2020 by Luis Eduardo Ross MD at OR [facility] N/A: Spine Cervical KWADWO [id number] / / 1 Level 20mm [place] View Plate Implanted:Qt y: 1 on 02/05/2020 by Luis Eduardo Ross MD at OR [facility] N/A: Spine Cervical KWADWO [id number] / / [id number] Alcutian Implanted:Qt y: 1 on 02/05/2020 by Luis Eduardo Ross MD at OR [facility] N/A: Spine Cervical KWADWO [id number] / / Description:alctuian cage 2.5cc Vitoss Bimodal Foam Pack Implanted:Qt y: 1 on 02/05/2020 by Luis Eduardo Ross MD at OR [facility] N/A: Spine Cervical KWADWO [id number] 11/29/2020 [id number] / [id number] / [id number] Rick Wall - [id number] Implanted:Qt y: 1 on 08/31/2022 by Chico Perry MD at OR [facility] N/A: Vagina [employer] 08/10/2023 [id number] / / [id number] documented as of this encounter Visit Diagnoses [...] and were consensually agreed upon. Care Teams Archivist Military History Relationship Specialty Start Date End Date Elida Lance DO [address] [place], [place] [phone] PCP - General Family Medicine 11/03/19 documented as of this encounter
--- OUTSIDE RECORDS SUMMARY | 2024-06-26 12:57 | External Medical Summary | Summary of Care ---
Author Name Unknown Organization [facility] Address [address] [facility] [place] [address] Phone [phone] Care Team Providers Care Recorder Of Deeds Name Role Phone Elida Lance DO Primary Care Provider Reason for Visit * Reason Comments Medication Refill Encounter Details Date Type Department Care Team (Late st Contact Info) Description 01/14/2024 Refill Psychiatry Jamal Silva [address] [place] [address] Brooke Deluca CRNP [address] [place] [address] Allergies Active Allergy Reactions Criticality Noted Date Comments Nsaids 02/01/2020 Hx gastric bypass Other Allergy (See Comments) Rash Medium 013 Dermabond prineo Penicillins 10/04/1999 Rash, last dose was in her 20's Sulfa Antibiotics 10/04/1999 Rash in her early 20's documented as of this encounter (statuses as of 01/14/2024) Medications MULTIVITAMINS PO CAPS one daily Active [...] 07/19/2023 8:50 AM EDT 07/17/19 24 Active Metoprolol Tartrate 25 MG Oral Tablet (Lopressor)Indic ations:HTN, goal below 140/90 TAKE ONE-HALF TABLET BY MOUTH IN THE MORNING AND ONE-HALF TABLET BEFORE BEDTIME 90 Tablet 1 10/30/2023 11:49 AM EDT 08/03/19 24 Active Alendronate Sodium 70 MG Oral [...] by mouth at bedtime. 90 Tablet 1 01/14/20 24 Active traZODone HCl 150 MG Oral Tablet (Desyrel) Take 1 Tablet by mouth at bedtime. 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 B12 malabsorption s/p gastric bypass 07/14/2002 Allergic rhinitis 02/12/2002 Dyslipidemia, goal LDL below 130 12/04/2001 Chronic rhinitis HTN, goal below 140/90 Spinal stenosis, lumbar Spondylolisthesis documented as of this encounter (statuses as of 01/14/2024) Resolved Problems Problem Noted Date Diagnosed Date [...] as of this encounter (statuses as of 01/14/2024) Immunizations Name Administration Dates Next Due COVID-19 [...] encounter Miscellaneous Notes * Telephone Encounter - Jesu Armijo MD - 01/14/2024 3:14 PM ESTSigned Prescriptions: Disp Refills traZODone HCl 150 MG Oral Tablet (Desyrel) 90 Tab*1 Sig: Take 1 Tablet by mouth at bedtime.Authorizing Provider: JESU ARMIJO documented in this encounter Plan of Treatment Upcoming Encounters Date Type Department Care Team (Late st Contact Info) Description 01/22/2024 2:30 PM EST Imaging Radiology [address] 132 [facility] [place] [address] 01/27/2024 2:30 PM EST Telemedicine Psychology [place] [address] [place] [address] Roly Miller, [facility] [address] [place] [address] 01/28/2024 3:20 PM EST Office Visit Dermatology[address] [address] Yessi Morton PA-C [address] [place] [address] [place] [phone] 02/04/2024 2:20 PM EST NeuroDiagnostic Study Neurophysiology [facility] [place] [facility] [place] [address] Erin Garcia MD [address] [facility] [place] [address] 03/16/2024 2:30 PM EST Telemedicine Psychiatry Jamal Silva [address] [place] [address] Brooke Deluca CRNP [address] [place] [address] 03/30/2024 1:30 PM EST Imaging Radiology, [facility] [address] [facility] [place] [address] 04/02/2024 11:25 AM EST Office Visit Interventional Pain Center, [facility] [address] [place] [address] Chris Rea DO [address] [facility] [place] [address] 04/03/2024 12:10 PM EST [facility] [address] [place] [address] Elida Lance, [address] [place] [address] 10/07/2024 2:40 PM EDT Telemedicine Endocrinology Jamal [address] [place] [address] Daniel Franco MD [address] [facility] [place] [id number] 10/15/2024 3:30 PM EDT Office Visit Neurology [facility] [address] [place] [address] Mariya Harding PA-C [address] [place] [address] Health Maintenance Due Date Last Done Comments [...] Additional history exists CKD HGB USE SMARTSET 65868 10/02/202410/02, 08/14/2022, 03/16/2022, Additional history exists CKD PHOS USE SMARTSET 76586 10/17/202410/02, 03/16/2022, 02/09/2021, Additional history exists Depression [...] this encounter Medical Devices Implanted Type Area Desktop Administrator Device Identifier Shelf Expiration Date Model / Serial / Lot Graft Infuse Bone Sm [id number] - [id number] Implanted:Qt y: 1 on 02/22/2012 [place] [facility] [place]: Spine Lumbar [employer] : NEUROLOGIC PAIN 08/01/2014 [id number] / / [id number] Screw 6x45 Poly Si [id number] - [id number] Implanted:Qt y: 2 on 02/22/2012 [place] [facility] [place]: Spine Lumbar JNJ : ETHICON [employer]ATIONS [id number] / / Screw 7x35 Poly Si [id number] - [id number] Implanted:Qt y: 2 on 02/22/2012 [place] [facility] [place]: Spine Lumbar JNJ : ETHICON CARDIOVATIONS [id number] / / Asif 5.5x55 Ti Prbnt [id number] - [id number] Implanted:Qt y: 2 on 02/22/2012 at [place] [facility] [place]A: Spine Lumbar JNJ : DEPUY SPINE [id number] / / Screw Set Sng Inner [id number] - [id number] Implanted:Qt y: 4 on 02/22/2012 at [place] [facility] [place]/A: Spine Lumbar JNJ : DEPUY SPINE [id number] / / Cage 28x8 Leopard [id number] - [id number] Implanted:Qt y: 1 on 02/22/2012 [place] [facility] [place]A: Spine Lumbar JNJ : ETHICON CARDIOVATIONS [id number] / / Implant Brst Mod Cls Pro 360cc - [id number] Implanted:Qt y: 1 on 11/12/2012 [place] [facility] Right: Breast MENTOR KRISSY 09/11/2017 [id number] / [id number] / [id number] Implant Brst Mod Cls Pro 360cc - [id number] Implanted:Qt y: 1 on 11/12/2012 at [place] [facility] Left: Breast MENTOR KRISSY 08/12/2017 [id number] / [id number] / [id number] 4.0 X 14 Variable Self Starting Screw Implanted:Qt y: 4 on 02/05/2020 by Luis Eduardo Ross MD at OR [facility] N/A: Spine Cervical KWADWO [id number] / / 1 Level 20mm [place] View Plate Implanted:Qt y: 1 on 02/05/2020 by Luis Eduardo Ross MD at OR [facility] N/A: Spine Cervical KWADWO [id number] / / [id number] Alcutian Implanted:Qt y: 1 on 02/05/2020 by Luis Eduardo Ross MD at OR [facility] N/A: Spine Cervical KWADWO [id number] / / Description:alctuian cage 2.5cc Vitoss Bimodal Foam Pack Implanted:Qt y: 1 on 02/05/2020 by Luis Eduardo Ross MD at OR [facility] N/A: Spine Cervical KWADWO [id number] 11/29/2020 [address] / [id number] / [id number] Sling Desara One - [id number] Implanted:Qt y: 1 on 08/31/2022 by Chico Perry MD at [place] [facility] N/A: Vagina [employer] 08/10/2023 [id number] / / [id number] documented as of this encounter Advance Directives [...] and were consensually agreed upon. Care Teams Recorder Of Deeds Relationship Specialty Start Date End Date Elida Lance DO [address] [facility] [place] [address] PCP - General Family Medicine 11/03/19 documented as of this encounter
--- OUTSIDE RECORDS SUMMARY | 2024-06-26 12:58 | External Medical Summary | Summary of Care ---
Author Name Unknown Organization [facility] Address [address] [place] [address] Phone [phone] Care Team Providers Care Wrapper Stemmer Operator Name Role Phone Elida Lance DO Primary Care Provider [phone] Reason for Referral * Precert (Within 10 days (routine)) - Authorized Specialty Diagnoses / Procedures Referred By Traci rizzo Referred To Contact Radiology Diagnoses History of lumbar laminectomy History of lumbar fusion Spondylolisthesis of lumbar region Procedures MRI L SPINE W WO CONTRAST Elham Gutierrez PA-C [address] [place] [address] Referral ID Status Reason Start Date Expiration Date V isits Requested Visits Authorized [id number] Authorized 01/02/2024 [id number] Encounter Details Date Type Department Care Team (Late st Contact Info) Description 12/26/2023 1:00 PM EDT Telemedicine Orthopaedics Spine Surgery, [place] [address] [place] [address] Elham Gutierrez PA-C [address] [place] [address] History of lumbar laminectomy*; History of lumbar fusion; Spondylolisthesis of lumbar region Allergies Active Allergy Reactions Criticality Noted Date Comments Nsaids 02/01/2020 Hx gastric bypass Other Allergy (See Comments) Rash Medium 013 Dermabond prineo Penicillins 10/04/1999 Rash, last dose was in her 20's Sulfa Antibiotics 10/04/1999 Rash in her early 20's documented as of this encounter (statuses as of 12/30/2023) Medications Medication Sig Dispensed Refills Start Date [...] as of this encounter (statuses as of 12/30/2023) Active Problems Problem Noted Date Diagnosed Date Major depressive disorder, recurrent, in partial remission 12/27/2021 Generalized anxiety disorder 12/27/2021 S/P cervical spinal fusion 02/05/2020 DDD (degenerative disc disease), cervical 2017 Major depressive disorder, recurrent, moderate 0 06/14/2017 Memory changes 01/01/2017 Benign hypertension with CKD (chronic kidney disease) stage III 12/26/2016 Controlled substance agreement signed 04/08/2015 DDD (degenerative disc disease), lumbar 11/21/19 12 [place] Confirmation Research Other*[id number] 06/0 11/2009 ADVANCE DIRECTIVE INFORMATION 10/08/2006 Overview: Yes, [...] as of this encounter (statuses as of 12/30/2023) Resolved Problems Problem Noted Date Diagnosed Date [...] as of this encounter (statuses as of 12/30/2023) Immunizations Name Administration Dates Next Due COVID-19 [...] as of this encounter Progress Notes * Elham Gutierrez PA-C - 12/26/2023 2:05 PM EDT 12-26-2023 After connecting to the patient via telephone, the patient was identified by name and date of . Patient was then informed that this was a telephone call only visit. The patient agreed to participate. Visit Disposition: Routine follow-up Total call duration was 10 minutes. HPI: 63 yo female s/p L5-S1 laminectomy, [...] is daily. Her activities are significantly worsening. Today's telemedicine visit is order to talk about how she is declining. Assessment: L5-S1 laminectomy, psf, plif with subsequent hardware removal Plan Update MRI Follow up after the MRI for further treatment options At the conclusion of the telemedicine visit all of her questions were answered. She was in agreement with our plan and knew to contact our office with any questions or concerns. documented in this encounter Plan of Treatment Upcoming Encounters Date Type Department Care Team (Late st Contact Info) Description 01/02/2024 2:30 PM EDT Telemedicine Psychology Jamal Silva [address] [place] [address] Roly Miller, UNMANNED EQUIPMENT OPERATOR [address] [place] [address] 01/09/2024 1:30 PM EST Office Visit Interventional Pain Center, [facility] [address] [facility] [place] [address] Chris Rea, [address] [place] [phone] 01/22/2024 2:30 PM EST Imaging Radiology [facility] [address] [facility] [place] [address] 01/28/2024 3:20 PM EST Office Visit [address] [place] [address] Yessi Morton PA-C [address] [place] [address] [place] [address] 03/16/2024 2:30 PM EST Telemedicine Psychiatry Jamal Silva [address] [place] [address] Brooke Deluca CRNP [address] [place] [address] 03/30/2024 1:30 PM EST Imaging Radiology, [facility] [address] [facility] [place] [address] 04/03/2024 12:10 PM EST Office Visit Family [facility] [address] [place] [address] Elida Lance, [address], [place] [id number] 10/07/2024 2:40 PM EDT Telemedicine Endocrinology [address] [place] [address] Daniel Franco MD [address], [place] [phone] 10/15/2024 3:30 PM EDT Office Visit Neurology [facility] [address] [place] [address] Mariya Harding PA-C [address] [facility] [place], [place] [id number] Scheduled Orders Name Type Priority Associated Diagnoses Orde r Schedule MRI L SPINE W WO CONTRAST Medical Imaging Routine History of lumbar laminectomy History of lumbar fusion Spondylolisthesis of lumbar region Expected: 01/02/2024, Expires: 01/25/2025 Health Maintenance Due Date Last Done Comments [...] Additional history exists CKD HGB USE SMARTSET 62991 10/02/202410/02, 08/14/2022, 03/16/2022, Additional history exists CKD PHOS USE SMARTSET 14295 10/17/202410/02, 03/16/2022, 02/09/2021, Additional history exists Depression [...] this encounter Medical Devices Implanted Type Area Infectious Disease Technician Device Identifier Shelf Expiration Date Model / Serial / Lot Graft Infuse Bone Sm [id number] - [id number] Implanted:Qt y: 1 [place] [facility] [place]: Spine Lumbar MEDTRONIC : NEUROLOGIC PAIN 08/01/2014 [id number] / / [id number] Screw 6x45 Poly Si [id number] - [id number] Implanted:Qt y: 2 on 02/22/2012 [place] [facility] [place]: Spine Lumbar JNJ : ETHICON CARDIOVATIONS [id number] / / Screw 7x35 Poly Si [id number] - [id number] Implanted:Qt y: 2 on 02/22/2012 [place] [facility] [place]: Spine Lumbar JNJ : ETHICON CARDIOVATIONS [id number] / / Asif 5.5x55 Ti Prbnt [id number] - [id number] Implanted:Qt y: 2 on 02/22/2012 [place] [facility] [place]A: Spine Lumbar JNJ : DEPUY SPINE [id number] / / Screw Set Sng Inner [id number] - [id number] Implanted:Qt y: 4 on 02/22/2012 [place] [facility] [place]A: Spine Lumbar JNJ : DEPUY SPINE [id number] / / Cage 28x8 Leopard [id number] - [id number] Implanted:Qt y: 1 on 02/22/2012 [place] [facility] [place]A: Spine Lumbar JNJ : ETHICON CARDIOVATIONS [id number] / / Implant Brst Mod Cls Pro 360cc - [id number] Implanted:Qt y: 1 on 11/12/2012 [place] [facility] Right: Breast MENTOR KRISSY 09/11/2017 [facility] [place] [id number] / [id number] Implant Brst Mod Cls Pro 360cc - [id number] Implanted:Qt y: 1 on 11/12/2012 [place] [facility] Left: Breast MENTOR KRISSY 08/12/[address] / [id number] / [id number] 4.0 X 14 Variable Self Starting Screw Implanted:Qt y: 4 on 02/05/2020 by Luis Eduardo Ross MD at OR [facility] N/A: Spine Cervical KWADWO [id number] / / 1 Level 20mm [place] Plate Implanted:Qt y: 1 on 02/05/2020 by Luis Eduardo Ross MD at OR [facility] N/A: Spine Cervical KWADWO [id number] / / [id number] Alcutian Implanted:Qt y: 1 on 02/05/2020 by Luis Eduardo Ross MD at OR [facility] N/A: Spine Cervical KWADWO [id number] / / Description:alctuian cage 2.5cc Vitoss Bimodal Foam Pack Implanted:Qt y: 1 on 02/05/2020 by Luis Eduardo Ross MD at OR [facility] N/A: Spine Cervical KWADWO [id number] 11/29/2020 1513-6753 / [id number] / [id number] Sling Desara One - [id number] Implanted:Qt y: 1 on 08/31/2022 by Chico Perry MD at [facility] N/A: Vagina [employer] 08/10/2023 [id number] / / [id number] documented as of this encounter Visit Diagnoses Diagnosis History of lumbar laminectomy- Primary History of lumbar fusion Spondylolisthesis of lumbar region Acquired spondylolisthesis documented in this encounter Advance Directives * [...] and were consensually agreed upon. Care Teams Wrapper Stemmer Operator Relationship Specialty Start Date End Date Elida Lance DO [address] [facility] [place] [phone] PCP - General Family Medicine 11/03/19 documented as of this encounter
[2024-06-26] MEDS: METOPROLOL TARTRATE 25 MG TAB PO SCH ×2 (13:56→20:22)
[2024-06-26] MEDS: lisinopril 2.5 MG TAB PO SCH (13:56)
[2024-06-26] MEDS: BACLOFEN 10 MG TAB PO ONE (13:57)
[2024-06-26] MEDS: SODIUM CHLORIDE 0.9% 1,000 ML IV SCH (13:58)
[2024-06-26] MEDS ORDERED: CALCIUM CITRATE VITAMIN D3 PO SCH (14:00)
[2024-06-26] MEDS: CALCIUM CITRATE 950 MG TAB PO SCH (14:28)
[2024-06-26] MEDS: CHOLECALCIFEROL 10 MCG (400 UNITS) TAB PO SCH (14:28)
[2024-06-26] MEDS ORDERED: MAGNESIUM HYDROXIDE SUSP 30 ML UDC PO PRN (14:30)
[2024-06-26] MEDS ORDERED: MoRPHine SULFATE 2 MG/ML CARP IV PRN (14:30)
[2024-06-26] MEDS: ACETAMINOPHEN 325 MG TAB PO SCH (15:18)
--- NOTE | 2024-06-26 15:34 | Electrocardiogram Report ---
Test Reason : Blood Pressure : */* mmHG Vent. Rate : 79 BPM Atrial Rate : 79 BPM P-R Int : 136 ms QRS Dur : 74 ms QT Int : 356 ms P-R-T Axes : 38 9 36 degrees QTcB Int : 408 ms Normal sinus rhythm with sinus arrhythmia Normal ECG When compared with ECG of 08-Feb-2022 13:44, No significant change was found Confirmed by Chuy Gee ([id number]) on 06/26/2024 3:34:10 PM Referred By: REFERRED SELF Confirmed By: Chuy Gee
[2024-06-26] MEDS: oxyCODONE HCL IR 5 MG TAB (IMMEDIATE RELEASE) PO PRN (17:35)
[2024-06-26] MEDS: PANTOprazole 40 MG TAB PO SCH (17:36)
[2024-06-26] MEDS: traZODone HCL 50 MG TAB PO SCH (20:21)
[2024-06-26] MEDS: buPROPion HCl 100 MG TABLET PO SCH (20:22)
[2024-06-26] MEDS: PRIMIDONE 50 MG TAB PO SCH (20:23)
[2024-06-26] MEDS: BACLOFEN 10 MG TAB PO PRN (20:28)
[2024-06-26] MEDS: POLYETHYLENE (MIRALAX) 17 GM PACK PO SCH (20:55)
[2024-06-26] MEDS: hydrALAZINE HCL 20 MG/ML VIAL IV ONE (21:27)
--- OUTSIDE RECORDS SUMMARY | 2024-06-26 23:06 | External Medical Summary | Summary of Care ---
Author Name Unknown Organization [facility] Address [address] [facility] [place] [address] Phone [phone] Care Team Providers Care Manager E Learning Name Role Phone Sheryl Lance DO Primary Care Provider [phone] Reason for Visit * Reason Comments Medication Refill Encounter Details Date Type Department Care Team (Late st Contact Info) Description 06/25/2024 Refill [facility] [place] [address] [place] [address] Sheryl Lance DO [address] [place] [id number] HTN, goal below 140/90 Allergies Active Allergy [...] Take 1 Tablet by mouth daily. Active LORazepam 0.5 MG Oral Tablet (Ativan) [...] 90 Tablet 1 06/11/2024 1:41 PM EDT 03/12/19 25 Active buPROPion [...] 05/23/2024 2:24 PM EDT 05/22/19 25 Active Primidone 50 MG Oral Tablet (Mysoline) Take one-half tablet by mouth twice daily 90 Tablet 1 06/13/2024 1:26 PM EDT 06/11/19 25 Active Lisinopril 2.5 MG Oral Tablet (Prinivil)Indica tions:HTN, goal below 140/90 Take 1/2 tablet by mouth daily 50 Tablet 3 06/27/19 25 Active oxyCODONE HCl 5 MG Oral Tablet (Oxy IR) Take 1 Tablet by mouth every 4 hours as needed for moderate to severe pain. 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 B12 malabsorption [...] Krystle Schroeder RN documented in this encounter Miscellaneous Notes * Telephone Encounter - Rowan Castro, [facility] - 06/26/2024 10:23 AM EDTSigned Prescriptions: Disp Refills Lisinopril 2.5 MG Oral Tablet (Prinivil) 50 Tab*3 Sig: Take 1/2 tablet by mouth dailyAuthorizing Provider: SHERYL LANCE User: ROWAN CERON--------- documented in this encounter Plan of Treatment Upcoming Encounters Date Type Department Care Team (Late st Contact Info) Description 07/03/2024 1:30 PM EDT Telemedicine Psychology, [place] [address] [place] [address] Roly Miller, [facility] [address] [place] [address] 07/14/2024 2:00 PM EDT Office Visit Orthopaedics Spine Surgery, [place] [address] [place] [address] Elham Gutierrez, JENNIFER [address] [place] [address] 07/15/2024 2:00 PM EDT Telemedicine Psychiatry, [place] [address] [place] [address] Brooke Deluca CRNP [address] [place] [address] 07/23/2024 1:00 PM EDT Telemedicine Nutrition Services [address] [place] [address] Jasvir Johnson, RDN [facility] [place] [address] 10/07/2024 2:40 PM EDT Telemedicine Endocrinology [address] [place] [address] Daniel Farnco MD [address] [place] [address] 10/15/2024 3:30 PM EDT Office Visit Neurology [facility] [address] [facility] [place] [address] Mariya Harding PA-C [address] [place] [address] 10/21/2024 12:10 PM EDT Office Visit Family Practice, [place] [facility] [place] [address] [facility] [place] [address] Sheryl Lance DO [address] [facility] [place] [address] 02/03/2026 2:20 PM EST Office Visit [facility], [facility] [address] [facility] [place] [address] Yessi Morton PA-C [address] [place] [address] [place] [address] Health Maintenance Due Date Last Done Comments Fecal Occult Blood Test 2006 Sigmoidoscopy 2006 Mammogram 08/09/2017 08/09/2016, 0609/2015, 08/05/2014, Additional history exists Pneumococcal Vaccine: 50+ Years (3 of 3 - PCV20 or PCV21) 07/09/2021 07/09/2016, 08/21/2013 Colonoscopy 01/14/2022 01/15/2012, 01/15/2012 COVID-19 Vaccine ( season) 2023 12/08/2020, 11/17/2020 Albumin/Creatinine Ratio 03/21/2024 024, 02/03/2019, 09/05/2017, Additional history exists CKD PHOS USE SMARTSET 46979 10/17/202410/02, 03/16/2022, 02/09/2021, Additional history exists GFR 12/22/2024 06/22/2024, 06/03, 06/20/2024, Additional history exists Cologuard 04/04/2025 04/04/2022, 03/05, 03/27/2022 Colorectal Cancer Screening 04/04/2025 Depression Monitoring 05/20/2025 05/20/2024 , 01/02/2024, 12/26/2023 CKD HGB USE SMARTSET 40884 06/22/202506/22, 06/21/2024, 06/20/2024, Additional history exists Diabetes [...] this encounter Medical Devices Implanted Type Area Varnisher Device Identifier Shelf Expiration Date Model / Serial / Lot Graft Infuse Bone Sm [id number] - [id number] Implanted:Qt y: 1 on 02/22/2012 at [place] [facility] N/A: Spine Lumbar MED[employer] : NEUROLOGIC PAIN 08/01/2014 [id number] / / [id number] Screw 6x45 Poly Si [id number] - [id number] Implanted:Qt y: 2 on 02/22/2012 at [place] [facility] N/A: Spine Lumbar JNJ : ETHICON CARDIOVATIONS [id number] / / Screw 7x35 Poly Si [id number] - [id number] Implanted:Qt y: 2 on 02/22/2012 at [place] [facility] N/A: Spine Lumbar JNJ : ETHICON CARDIOVATIONS [id number] / / Asif 5.5x55 Ti Prbnt [id number] - [id number] Implanted:Qt y: 2 on 02/22/2012 at [place] [facility] N/A: Spine Lumbar JNJ : DEPUY SPINE [id number] / / Screw Set Sng Inner [id number] - [id number] Implanted:Qt y: 4 on 02/22/2012 at [place] [facility] N/A: Spine Lumbar JNJ : DEPUY SPINE [id number] / / Cage 28x8 Leopard [id number] - [id number] Implanted:Qt y: 1 on 02/22/2012 at [place] [facility] N/A: Spine Lumbar JNJ : ETHICON CARDIOVATIONS [id number] / / Implant Brst Mod Cls Pro 360cc - [id number] Implanted:Qt y: 1 on 11/12/2012 at OR [facility] Right: Breast MENTOR KRISSY 09/11/2017 350-7360 / [id number] / [id number] Implant Brst Mod Cls Pro 360cc - [id number] Implanted:Qt y: 1 on 11/12/2012 at OR [facility] Left: Breast MENTOR KRISSY 08/12/2017 350-7360 / [id number] / [id number] 4.0 X 14 Variable Self Starting Screw Implanted:Qt y: 4 on 02/05/2020 by Luis Eduardo Ross MD at OR [facility] N/A: Spine Cervical KWADWO [id number] A / / 1 Level 20mm [place] View Plate Implanted:Qt y: 1 on 02/05/2020 by Luis Eduardo Rsos MD at OR [facility] N/A: Spine Cervical KWADWO [id number] / / [id number] Alcutian Implanted:Qt y: 1 on 02/05/2020 by Luis Eduardo Ross MD at OR [facility] N/A: Spine Cervical KWADWO [id number] / / Description:alctuian cage 2.5cc Vitoss Bimodal Foam Pack Implanted:Qt y: 1 on 02/05/2020 by Luis Eduardo Ross MD at OR [facility] N/A: Spine Cervical KWADWO [id number] 11/29/2020 3800-6168 / [id number] / [id number] Sling Andrzej One - [id number] Implanted:Qt y: 1 on 08/31/2022 by Chico Perry MD at OR [facility] N/A: Vagina [employer] 08/10/2023 [id number] / / [id number] Bone Mtrx Vivigen Formble 10cc - [id number] - [id number] Implanted:Qt y: 1 on 06/19/2024 by Joseph Giordano MD at [place] [facility] N/A: Spine Lumbar LIFENET 04/29/2025 [id number] / [id number] / [id number] Implant Graft Bone Ifact 2.5cc - [id number] Implanted:Qt y: 1 on 06/19/2024 by Joseph Giordano MD at OR [facility] Spine Lumbar [employer] [id number] 04/03/2026 700-025 / / [id number] Eit/ Plif 13mm 12 Degree 23/11 Implanted:Qt y: 1 on 06/19/2024 by Joseph Giordano MD at OR [facility] N/A: Spine Lumbar 08/31/2025 [id number] / / [id number] Duragen Plus 1x3 Dp 1013 Min5 - [id number] - [id number] Implanted:Qt y: 1 on 06/19/2024 by Joseph Giordano MD at [place] [facility] N/A: Spine Lumbar [employer] KRISSY [id number] 12/01/2026 [id number] / [id number] / [id number] Screw 6x45 Poly Si [id number] - [id number] Implanted:Qt y: 2 on 06/19/2024 by Joseph Giordano MD at [place] [facility] N/A: Spine Lumbar JNJ : ETHICON CARDIOVATIONS [id number] / / Screw 7x45 Poly Si [id number] - [id number] Implanted:Qt y: 2 on 06/19/2024 by Joseph Giordano MD at [place] [facility] N/A: Spine Lumbar JNJ : ETHICON CARDIOVATIONS [id number] / / Pre Lordosed Asif W Line 45mm - [id number] Implanted:Qt y: 2 on 06/19/2024 by Joseph Giordano MD at [place] [facility] N/A: Spine Lumbar JNJ : DEPUY SPINE [id number] / / Screw Set Sng Inner [id number] - [id number] Implanted:Qt y: 4 on 06/19/2024 by Joseph Giordano MD at [place] [facility] N/A: Spine Lumbar JNJ : ETHICON CARDIOVATIONS [id number] / / Expedium Ti Sfx 5.5 Lat A6 - [id number] Implanted:Qt y: 1 on 06/19/2024 by Joseph Giordano MD at [place] [facility] N/A: Spine Lumbar JNJ : ETHICON CARDIOVATIONS [id number] / / documented as of this encounter [...] were consensually agreed upon. Care Teams Manager E Learning Relationship Specialty Start Date End Date Sheryl Lance DO [address] [place] [address] PCP - General Family Medicine 05/22/24 documented as of this encounter
--- OUTSIDE RECORDS SUMMARY | 2024-06-26 23:06 | External Medical Summary | Summary of Care ---
Author Name Unknown Organization [facility] Address [address] [facility] [place] [address] Phone [phone] Care Team Providers Care Medical Collector Name Role Phone Elida Lance DO Primary Care Provider Encounter Details Date Type Department Care Team (Late st Contact Info) Description 06/26/2024 Patient Reported Data Patient Survey Ortho FORCE [...] Tablet 05/23/2024 2:24 PM EDT 5 Active Primidone 50 MG Oral Tablet (Mysoline) Take one-half tablet by mouth twice daily 90 Tablet 1 06/13/2024 1:26 PM EDT 5 Active Lisinopril 2.5 MG Oral Tablet (Prinivil)Indica tions:HTN, goal below 140/90 Take 1/2 tablet by mouth daily 50 Tablet 3 5 Active oxyCODONE HCl 5 MG Oral Tablet (Oxy IR) Take 1 Tablet by mouth every 4 hours as needed for moderate to severe pain. 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 B12 [...] mRNA, LNP-s, No Pre serve, 2-Dose Series (KidzVuz) 12/08/2020,11/17/2020 Pneumococcal Conjugate Vacc, 13 Valent (Prevnar) [...] Description 07/03/2024 1:30 PM EDT Telemedicine Psychology, [place] [address] [place] [phone] Roly Miller LCSW [address] [place] [address] 07/14/2024 2:00 PM EDT Office Visit Orthopaedics Spine Surgery, [place] [address] [place] [phone] Elham Gutierrez PA-C [address] [place], [place] [id number] 07/15/2024 2:00 PM EDT Telemedicine Psychiatry, [place] [address] [place] [phone] Brooke Deluca CRNP [address] [place] [address] 07/23/2024 1:00 PM EDT Telemedicine Nutrition Services [place] [address] [place] [address] Jasvir Johnson, RDN [address] [place] [address] 10/07/2024 2:40 PM EDT Telemedicine Endocrinology [address] [place] [phone] Daniel Franco MD [address] [place] [address] 10/15/2024 3:30 PM EDT Office Visit Neurology [facility] [place] [address] [facility] [place] [address] Mariya Harding PA-C [address] [facility] [place] [address] 10/21/2024 12:10 PM EDT Office Visit [facility], [place] [facility] [address] [facility] [place] [address] Elida Lance DO [address] [facility] [place] [address] 02/03/2026 2:20 PM EST Office Visit Dermatology, [place] [facility] [address] [facility] [place] [address] Yessi Morton PA-C [address] [place] [address] [place] [address] Health Maintenance Due Date [...] Additional history exists CKD PHOS USE SMARTSET 26503 10/17/202410/02, 03/16/2022, 02/09/2021, Additional history exists GFR 12/22/2024 06/22/2024, 06/03, 06/20/2024, Additional history exists Cologuard 04/04/2025 04/04/2022, 03/05, 03/27/2022 Colorectal Cancer Screening 04/04/2025 Depression Monitoring 05/20/2025 05/20/2024 , 01/02/2024, 12/26/2023 CKD HGB USE SMARTSET 14601 06/22/202506/22, 06/21/2024, 06/20/2024, Additional history exists Diabetes [...] this encounter Medical Devices Implanted Type Area Pump And Blower Operator Device Identifier Shelf Expiration Date Model / Serial / Lot Graft Infuse Bone Sm [id number] - [id number] [place]planted:Qt y: 1 [place] [facility] [place] Spine Lumbar MED[employer] : NEUROLOGIC PAIN 08/01/2014 [id number] / / [id number] Screw 6x45 Poly Si [id number] - [id number] Implanted:Qt y: 2 on 02/22/2012 [place] [facility] [place]: Spine Lumbar JNJ : ETHICON [employer]ATIONS [id number] / / Screw 7x35 Poly Si [id number] - [id number] Implanted:Qt y: 2 on 02/22/2012 [place] [facility] [place]: Spine Lumbar JNJ : ETHICON CARDIOVATIONS [id number] / / Asif 5.5x55 Ti Prbnt [id number] - [id number] Implanted:Qt y: 2 on 02/22/2012 [place] [facility] [place]: Spine Lumbar JNJ : DEPUY SPINE [id number] / / Screw Set Sng Inner [id number] - [id number] Implanted:Qt y: 4 on 02/22/2012 [place] [facility] [place]: Spine Lumbar JNJ : DEPUY SPINE [id number] / / Cage 28x8 Leopard [id number] - [id number] Implanted:Qt y: 1 on 02/22/2012 [place] [facility] [place]: Spine Lumbar JNJ : ETH[employer]ON [employer]ATIONS [id number] / / Implant Brst Mod Cls Pro 360cc - [id number] Implanted:Qt y: 1 on 11/12/2012 [place] [facility] [place] Right: Breast MENTOR KRISSY 09/11/2017 [id number] / [id number] / [id number] Implant Brst Mod Cls Pro 360cc - [id number] Implanted:Qt y: 1 on 11/12/2012 [place] [facility] [place] Left: Breast MENTOR KRISSY 08/12/2017 350-7360 / [id number] / [id number] 4.0 X 14 Variable Self Starting Screw Implanted:Qt y: 4 on 02/05/2020 by Luis Eduardo Ross MD at OR [facility] N/A: Spine Cervical KWADWO [id number] / / 1 Level 20mm [place] Plate Implanted:Qt y: 1 on 02/05/2020 by Luis Eduardo Ross MD at OR [facility] N/A: Spine Cervical KWADWO [id number] / / [id number] Alcutian Implanted:Qt y: 1 on 02/05/2020 by Luis Eduardo Ross MD at OR [facility] N/A: Spine Cervical KWADWO [id number] / / Description:alctuian cage 2.5cc Vitoss Bimodal Foam Pack Implanted:Qt y: 1 on 02/05/2020 by Luis Eduardo Ross MD at OR [facility] N/A: Spine Cervical KWADWO [id number] 11/29/2020 1773-3532 / [id number] / [id number] Sling Desara One - [id number] Implanted:Qt y: 1 on 08/31/2022 by Chico Perry MD at [place] [facility] N/A: Vagina [employer] 08/10/2023 [id number] / / [id number] Bone Mtrx Vivigen Formble 10cc - [id number] - [id number] Implanted:Qt y: 1 on 06/19/2024 by Joseph Giordano MD at [place] [facility] [place]: Spine Lumbar LIF[employer]ET 04/29/2025 [id number] / [id number] / [id number] Implant Graft Bone Ifact 2.5cc - [id number] Implanted:Qt y: 1 on 06/19/2024 by Joseph Giordano MD [place] [facility] [place] Spine Lumbar [employer] [id number] 04/03/2026 700-025 / / [id number] Eit/ Plif 13mm 12 Degree 22/ Implanted:Qt y: 1 on 06/19/2024 by Joseph Giordano MD [place] [facility] [place]: Spine Lumbar 08/31/2025 [id number] / / [id number] Duragen Plus 1x3 Dp 1013 Min5 - [id number] - [id number] Implanted:Qt y: 1 on 06/19/2024 by Joseph Giordano MD at [place] [facility] [place]A: Spine Lumbar [employer] KRISSY [id number] 12/01/2026 [id number] / [id number] / [id number] Screw 6x45 Poly Si [id number] - [id number] Implanted:Qt y: 2 on 06/19/2024 by Joseph Giordano MD [place] [facility] [place]: Spine Lumbar JNJ : ETH[employer]ON C[employer]IOVATIONS [id number] / / Screw 7x45 Poly Si [id number] - [id number] Implanted:Qt y: 2 on 06/19/2024 by Joseph Giordano MD [place] [facility] [place]: Spine Lumbar JNJ : ETH[employer]ON CARDIOVATIONS [id number] / / Pre Lordosed Asif W Line 45mm - [id number] Implanted:Qt y: 2 on 06/19/2024 by Joseph Giordano MD [place] [facility] [place]: Spine Lumbar JNJ : DEPUY SPINE [id number] / / Screw Set Sng Inner [id number] - [id number] Implanted:Qt y: 4 on 06/19/2024 by Joseph Giordano MD [place] [facility] [place]: Spine Lumbar JNJ : ETH[employer]ON CARDIOVATIONS [id number] / / Expedium Ti Sfx 5.5 Lat A6 - [id number] Implanted:Qt y: 1 on 06/19/2024 by Joseph Giordano MD [place] [facility] [place]: Spine Lumbar JNJ : ETH[employer]ON CARDIOVATIONS [id number] / / documented as of this encounter [...] and were consensually agreed upon. Care Teams Medical Collector Relationship Specialty Start Date End Date Elida Lance DO [address] [place] [id number] PCP - General Family Medicine 05/22/24 documented as of this encounter
[2024-06-27] MEDS: ONDANSETRON INJ 2 MG/ML 2 ML VIAL IV PRN (05:53)
[2024-06-27 07:20] LABS: Hematocrit (blood only) 26.6 % (37.0-47.0); Hemoglobin 8.8 g/dl (12.0-16.0); Mean Corpuscular Hemoglobin 31.1 pg (25.0-34.0); Mean Corpuscular Hgb Conc 33.1 g/dL (32.0-36.0); Mean Platelet Volume 8.6 fL (9.4-12.4); Platelet Count 300 K/uL (130-400); RDW Standard Deviation 46.3 fL (36.4-46.3); Red Blood Count 2.83 M/uL (4.20-5.40); White Blood Count 5.68 K/ul (4.8-10.8)
[2024-06-27 07:36] LABS: BUN Creatinine Ratio 7.2 (10-20); Calcium 8.8 mg/dl (8.6-10.3); Magnesium 1.8 mg/dl (1.7-2.4); Potassium 3.9 mmol/L (3.5-5.1)
[2024-06-27] MEDS: MULTIVITAMIN TAB PO SCH (08:07)
[2024-06-27] MEDS: FERROUS SULFATE 325 MG TAB PO SCH (08:07)
[2024-06-27] MEDS: OXYBUTYNIN CHLORIDE XL 5 MG TABCR PO SCH (08:08)
[2024-06-27] MEDS: VORTIOXETINE HYDROBROMIDE 20 MG TAB PO SCH (08:09)
[2024-06-27 09:06] LABS: Thyroid Stimulating Hormone 0.592 uIu/ml (0.300-4.500)
[2024-06-27 09:12] LABS: Ferritin 1203.7 ng/ml (8-388)
[2024-06-27 09:24] LABS: Folate (Folic Acid),Ser orPlas > 22.30 ng/ml (>5.38)
[2024-06-27 09:25] LABS: Vitamin B12 > 1500 pg/ml (180-914)
--- NOTE | 2024-06-27 18:14 | Hospitalist Progress Note ---
Date of Service June 27, 2024 Assessment & Plan (1) Dehydration: (2) Ambulatory dysfunction: Plan: Martha Lawson is a 64y/o F with PMHx significant for HTN, HLD, chronic rhinitis, post gastric surgery syndrome, B12 malabsorption s/p gastric bypass, recurrent N/V on chronic Zofran PRN, lumbar DDD, cervical DDD s/p cervical spinal fusion, lumbar spinal stenosis, memory changes, depression, CKD stage III, MEYER, KATE and GERD who is being admitted under our service with goal of obtaining rehabilitation placement due to significant ambulatory dysfunction and deconditioning after recently undergoing lumbar spinal surgery at [facility] on 06/19/24. Plan: -Obtain PT/OT evaluations. PRN pain control and antiemetics. IVF x 1 more bag for now. -OOB with assistance. Fall precautions. Appreciate assistance of CM to arrange rehabilitation placement. (3) CKD (chronic kidney disease), stage III: Plan: -Cr stable, baseline Cr around 0.8-1.2 per chart review. -Avoid nephrotoxic agents when able. Monitor renal function closely with daily labs and renally dose medications when able. (4) HTN (hypertension): Plan: -Did not take home antihypertensives this morning therefore will give these now. -Suspect pain contributing to HTN as well. Continue routine BP monitoring. (5) Hypomagnesemia: Plan: -Will start magnesium supplementation. Continue to monitor and replete PRN. Other Chronic Medical Conditions: Anxiety/Depression - Continue Trintellix, Wellbutrin. Uses medical marijuana PRN at home. Essential Tremor - Continue primidone. GERD - Continue PPI. Urinary Incontinence - Continue Ditropan. Plan I spent a total of 40 minutes in direct patient care, including [id number] time with the patient and/or family, reviewing medical records, ordering and reviewing diagnostic tests, and coordinating care with other healthcare providers. This time includes: history taking, physical examination, medical decision making, counseling, ECG interpretation, imaging interpretation, lab interpretation, orders, and education, excluding time spent in the performance of separately billed services. Admission and Anticipated Discharge Date Admission Date: June 26, 2024 Subjective Patient seen and examined at bedside. Patient came back to hospital as unable to take care of self at home. Review of Systems Review of Systems: CONSTITUTIONAL: Patient denies fevers, chills, sweats and weight changes. EYES: Patient denies any visual symptoms. EARS, NOSE, AND THROAT: No difficulties with hearing. No symptoms of rhinitis or sore throat. CARDIOVASCULAR: Patient denies chest pains, palpitations, orthopnea and paroxysmal nocturnal dyspnea. RESPIRATORY: No dyspnea on exertion, no wheezing or cough. GI: No nausea, vomiting, diarrhea, constipation, abdominal pain, hematochezia or melena. : No urinary hesitancy or dribbling. No nocturia or urinary frequency. No abnormal urethral discharge. MUSCULOSKELETAL: back pain, weak NEUROLOGIC: No chronic headaches, no seizures. Patient denies numbness, tingling or weakness. PSYCHIATRIC: Patient denies problems with mood disturbance. No problems with anxiety. ENDOCRINE: No excessive urination or excessive thirst. DERMATOLOGIC: Patient denies any rashes or skin changes. Physical Exam Physical Exam: Gen: A&O 3 NAD, sarcopenia noted HEENT: NCAT, EOMI, not icteric. External ears normal. No rhinorrhea. Moist mucous membranes. Neck: Supple, full range of motion, no observable masses, No meningeal sign. Lungs: No Respiratory distress. CV: RRR, no edema. Abdomen: Soft, nondistended, No rebound tenderness. MSK: generalized weakness Skin: No rashes, petechiae, lesions. Normal color per patient. Neuro: Normal Gait, Grossly intact. Psych: Appropriate for situation. Results & Data Results & Data Vital Signs (Past 12 Hours) Vital Signs Temp Pulse Resp BP BP Pulse Ox O2 Del Method 06/27/24 15:49 37.0 C 83 16 175/97 H 100 Room Air 06/27/24 13:22 36.8 C 73 15 148/80 H 06/27/24 08:05 83 159/80 H 95 Room Air 06/27/24 07:21 36.9 C 77 14 168/95 H 96 Room Air Laboratory Results -personally reviewed, Hgb of 8.8, malabsoprtion labs ordered revealing anemia of chronic disease Medications Administered Acetaminophen (Acetaminophen 325 Mg Tab) 650 mg PO Q6H [facility] Stop: 07/26/24 14:29 Last Admin: 06/27/24 14:01 Dose: 650 mg Documented By: Admin: 06/27/24 08:07 Dose: 650 mg Documented By: Admin: 06/27/24 03:03 Dose: 650 mg Documented By: Admin: 06/26/24 20:24 Dose: Not Given Documented By: Admin: 06/26/24 15:18 Dose: Not Given Documented By: GINA Bupropion HCl (Bupropion Hcl 100 Mg Tablet) 100 mg PO BID CHLOÉ Stop: 07/26/24 20:59 Last Admin: 06/27/24 08:10 Dose: 100 mg Documented By: Admin: 06/26/24 20:22 Dose: 100 mg Documented By: NATALIE Calcium Citrate (Calcium Citrate 950 Mg Tab) 950 mg PO TID CHLOÉ Stop: 07/26/24 13:59 Last Admin: 06/27/24 14:01 Dose: 950 mg Documented By: Admin: 06/27/24 08:10 Dose: 950 mg Documented By: Admin: 06/26/24 20:21 Dose: 950 mg Documented By: Admin: 06/26/24 14:28 Dose: 950 mg Documented By: GINA Ferrous Sulfate (Ferrous Sulfate 325 Mg Tab) 325 mg PO DAILY CHLOÉ Stop: 07/27/24 08:59 Last Admin: 06/27/24 08:07 Dose: 325 mg Documented By: GUTIERREZ Lisinopril (Lisinopril 2.5 Mg Tab) 2.5 mg PO QAM [facility] Stop: 07/26/24 12:59 Last Admin: 06/27/24 08:07 Dose: 2.5 mg Documented By: Admin: 06/26/24 13:56 Dose: 2.5 mg Documented By: GINA Metoprolol Tartrate (Metoprolol Tartrate 25 Mg Tab) 25 mg PO BID CHLOÉ Stop: 07/26/24 20:59 Last Admin: 06/27/24 08:07 Dose: 25 mg Documented By: Admin: 06/26/24 20:22 Dose: 25 mg Documented By: NATALIE Multivitamins (Multivitamin Tab) 1 [facility] Stop: 07/27/24 08:59 Last Admin: 06/27/24 08:07 Dose: 1 tab Documented By: GUTIERREZ Ondansetron HCl (Ondansetron Inj 2 Mg/Ml 2 Ml Vial) 4 mg IV Q6H PRN PRN Reason: Nausea Stop: 07/26/24 14:29 Last Admin: 06/27/24 17:56 Dose: 4 mg Documented By: Admin: 06/27/24 05:53 Dose: 4 mg Documented By: NATALIE Oxybutynin Chloride (Oxybutynin Chloride Xl 5 Mg Tabcr) 30 mg PO QAM CHLOÉ Stop: 07/27/24 08:59 Last Admin: 06/27/24 08:08 Dose: 30 mg Documented By: GUTIERREZ Oxycodone HCl (Oxycodone Hcl Ir 5 Mg Tab (Immediate Release)) 5 mg PO Q4H PRN PRN Reason: MODERATE Pain (4,5,6) & Pre PT Stop: 07/10/24 14:29 Last Admin: 06/27/24 16:06 Dose: 5 mg Documented By: Admin: 06/26/24 17:35 Dose: 5 mg Documented By: SEGUNDO Pantoprazole Sodium (Pantoprazole 40 Mg Tab) 40 mg PO BIDM CHLOÉ Stop: 07/26/24 16:59 Last Admin: 06/27/24 16:07 Dose: 40 mg Documented By: Admin: 06/27/24 08:07 Dose: 40 mg Documented By: Admin: 06/26/24 17:36 Dose: 40 mg Documented By: SEGUNDO Polyethylene Glycol (Polyethylene (Miralax) 17 Gm Pack) 17 gm PO BID CHLOÉ Stop: 07/26/24 20:59 Last Admin: 06/27/24 08:31 Dose: 17 gm Documented By: Admin: 06/26/24 20:55 Dose: 17 gm Documented By: NATALIE Primidone (Primidone 50 Mg Tab) 25 mg PO BID CHLOÉ Stop: 07/26/24 20:59 Last Admin: 06/27/24 08:08 Dose: 25 mg Documented By: Admin: 06/26/24 20:23 Dose: 25 mg Documented By: NATALIE Trazodone HCl (Trazodone Hcl 50 Mg Tab) 150 mg PO HS CHLOÉ Stop: 07/26/24 20:59 Last Admin: 06/26/24 20:21 Dose: 150 mg Documented By: NATALIE Vitamin D (Cholecalciferol 10 Mcg (400 Units) Tab) 10 mcg PO TID CHLOÉ Stop: 07/26/24 13:59 Last Admin: 06/27/24 14:01 Dose: 10 mcg Documented By: Admin: 06/27/24 08:11 Dose: 10 mcg Documented By: Admin: 06/26/24 20:22 Dose: 10 mcg Documented By: Admin: 06/26/24 14:28 Dose: 10 mcg Documented By: GINA Vortioxetine (Vortioxetine Hydrobromide 20 Mg Tab) [facility] Stop: 07/27/24 08:59 Last Admin: 06/27/24 08:09 Dose: 20 mg Documented By: GUTIERREZ (3) CKD (chronic kidney disease), stage III Chronic kidney disease stage 3 subtype: unspecified whether 3a or 3b Qualified Code(s): N18.30 - Chronic kidney disease, stage 3 unspecified (4) HTN (hypertension) Hypertension type: unspecified Qualified Code(s): I10 - Essential (primary) hypertension
[2024-06-27] MEDS: BACLOFEN 10 MG TAB PO STA (20:17)
[2024-06-28 07:44] LABS: Hematocrit (blood only) 26.8 % (37.0-47.0); Mean Corpuscular Hemoglobin 31.4 pg (25.0-34.0); Mean Corpuscular Hgb Conc 33.6 g/dL (32.0-36.0); Mean Corpuscular Volume 93.4 fL (80.0-100.0); Mean Platelet Volume 8.8 fL (9.4-12.4); Platelet Count 345 K/uL (130-400); RDW Coefficient of Variation 13.6 % (11.5-14.5); RDW Standard Deviation 45.5 fL (36.4-46.3); Red Blood Count 2.87 M/uL (4.20-5.40); White Blood Count 5.29 K/ul (4.8-10.8)
[2024-06-28 08:02] LABS: BUN Creatinine Ratio 8.2 (10-20); Calcium 9.6 mg/dl (8.6-10.3); Creatinine Clr Calc Pharmacy 59.5 ml/min; Potassium 4.1 mmol/L (3.5-5.1)
[2024-06-28] MEDS: BACLOFEN 10 MG TAB PO PRN (11:39)
--- NOTE | 2024-06-28 12:52 | Hospitalist Progress Note ---
Date of Service June 28, 2024 Assessment & Plan (1) Ambulatory dysfunction: Plan: Ambulatory dysfunction 2/2 acute on chronic lower back pain in the setting of post-op recovery from L4-L5 laminectomy for spinal stenosis with neurogenic claudication * Patient has history of multiple orthopedic injuries and corrective surgeries in the past * Pain has been managed with Oxycodone with some relief; desirable pain threshold of 5/10 * Baclofen given x 1 on admission- Will Order Baclofen 5mg TID as needed for pain * May give Oxycodone 5 mg as needed for moderate pain * PT consult initiatied with the recommendation to continue PT while inpatient; patient to return home with home health services to assist (2) HTN (hypertension): Plan: Hypertension controlled at home with dual-agents- JUANITO and Beta deepali: * Patient has been experiencing elevated blood pressures since admission 150-160's/90-100's possibly pain related; although, compliance is questionable as she has been vomiting since discharge from OSH. * Continue Lisinopril and metoprolol as per home routine. * BP beginning to return to baseline as condition improves * Continue routine BP monitoring and follow-up outpatient (3) CKD (chronic kidney disease), stage III: (4) Hypomagnesemia: Plan: Hypomagnesium: * Mag 1.6 on admission, supplementation provided, now Mag 1.8 * Will continue to monitor and replace PRN. Plan DVT Ppx: Yes; SCD Knees Code status: Full PCP: Dr. Elida Lance Dispo: Med/Surg Admit Patient seen in collaboration with Dr. Mc. Please see addendum.I spent a total of 45 minutes coordinating, documenting and providing care for this patient excluding time spent in the performance of separately billed services or time spent by another provider/QHP. Admission and Anticipated Discharge Date Admission Date: June 26, 2024 Supervising Physician Co-Signing Physician Notes Patient doing well today, would like baclofen for pain. Patient evaluated by PT/OT, recommended home health care vs. SNF. Patient medically stable for discharge, awaiting disposition. I have seen and discussed the case with the collaborating advanced practitioner. I agree with the above H&P. I have reviewed and confirmed the patients medical history, the findings on physical examination, and the patients diagnosis and treatment plan with Brooke AMADO and agree with the information documented. I spent a total of 20 minutes coordinating, documenting, and providing care for this patient excluding time spent in the performance of separately billed services. All of the aforementioned completed outside of collaborating with the assigned advanced practitioner for a full treatment plan. I have reviewed the advanced practitioner's documentation, and I agree with, and take responsibility for the plan of care Subjective Patient seen and examined at bedside. She was lying in bed, repositioned herself with some difficulty. No acute distress. She denies chest pain, difficulty breathing, abdominal pain, headaches. Her primary concern today is pain control as she currently experiences 8-9/10 lower back pain following lumbar, L4-L5 fusion surgery 1 week ago. Her desired pain threshold is 5/10, as she chronica lly experiences back pain and is able to function at that level. She feels the nausea experienced on day of admission has improved and she tolerated breakfast this morning. She is urinating okay, but has had mild incontinence on the way to the bathroom yesterday when receiving IV fluids. She denies numbness/tingling/gross incontinence or urinary leaking. Review of Systems Review of Systems: All systems reviewed & are unremarkable except as noted in Subjective Physical Exam Constitutional: well developed, well nourished, healthy appearing and well groomed Eyes: PERRL, conjunctivae normal, anicteric sclerae ENMT: external ear and nose normal, oropharynx normal Neck: trachea midline, no thyromegaly Respiratory: normal respiratory effort, lungs clear to auscultation Cardiovascular: RRR, no murmur, no edema Gastrointestinal (Abdomen): Inspection/Auscultation: abdomen normal to inspection and normal bowel sounds Percussion/Palpation: abdomen soft; abdomen nontender Musculoskeletal: Head/Neck/Chest: normocephalic, head atraumatic and neck supple Extremities: extremities normal to inspection and strength 5/5 throughout full range of motion to bilateral ankle, no evidence of foot drop, sensation to bottom of feet intact, full weight bearing status Skin: no rashes, warm and dry Neurologic: PERRL, EOMI, accommodation nl, no face palsy, no dysarthria Psychiatric: A+Ox3, euthymic affect Lymphatic: no cervical or axillary lymphadenopathy Results & Data Results & Data Vital Signs (Past 12 Hours) Vital Signs Temp Pulse Resp BP Pulse Ox O2 Del Method 06/28/24 11:48 36.8 C 72 16 167/89 H 97 Room Air 06/28/24 07:56 36.7 C 68 16 125/79 98 Room Air Laboratory Results Short CBC 06/28/24 Range/Units 06:54 WBC 5.29 (4.8-10.8) K/ul Hgb 9.0 L (12.0-16.0) g/dl Hct 26.8 L (37.0-47.0) % Plt Count 345 (130-400) K/uL BMP 06/28/24 06:54 Sodium 137 Potassium 4.1 Chloride 100 Carbon Dioxide 29 BUN 6 Creatinine 0.73 Glucose 86 Calcium 9.6 (2) HTN (hypertension) Hypertension type: unspecified Qualified Code(s): I10 - Essential (primary) hypertension (3) CKD (chronic kidney disease), stage III Chronic kidney disease stage 3 subtype: unspecified whether 3a or 3b Qualified Code(s): N18.30 - Chronic kidney disease, stage 3 unspecified
--- NOTE | 2024-06-29 13:42 | Hospitalist Progress Note ---
Date of Service June 29, 2024 Assessment & Plan (1) Ambulatory dysfunction: Plan: Ambulatory dysfunction 2/2 acute on chronic lower back pain in the setting of post-op recovery from L4-L5 laminectomy for spinal stenosis with neurogenic claudication * Patient has history of multiple orthopedic injuries and corrective surgeries in the past * Recovery with most recent surgery has been challenging with ongoing nausea aggravating LBP * Baclofen started yesterday and effectively controls lower back pain * Oxycodone as needed for moderate pain- suggest using between Baclofen doses * PT following (2) HTN (hypertension): Plan: Hypertension controlled at home with dual-agents- JUANITO and Beta deepali: * Patient has been experiencing elevated blood pressures since admission 150-160's/90-100's most likely 2/2 pain * Continue Lisinopril and metoprolol as per home routine. * Continue routine BP monitoring and follow-up outpatient (3) CKD (chronic kidney disease), stage III: (4) Hypomagnesemia: Plan: Hypomagnesium: * Mag 1.6 on admission, supplementation provided, now Mag 1.8 * Will continue to monitor and replace PRN. Plan DVT Ppx: Yes; SCD Knees Code status: Full PCP: Dr. Elida Lance Dispo: Med/Surg Admit Patient seen in collaboration with Dr. Mc. Please see addendum.I spent a total of 40 minutes coordinating, documenting and providing care for this patient excluding time spent in the performance of separately billed services or time spent by another provider/QHP. Admission and Anticipated Discharge Date Admission Date: June 26, 2024 Supervising Physician Co-Signing Physician Notes Patient awaiting rehab placement. If unable to secure rehab placement, patient may need to consider assisted living, private pay home health aides, or home health. Medically ready for discharge home vs. rehab. I have seen and discussed the case with the collaborating advanced practitioner. I agree with the above H&P. I have reviewed and confirmed the patients medical history, the findings on physical examination, and the patients diagnosis and treatment plan with Brooke AMADO and agree with the information documented. I spent a total of 20 minutes coordinating, documenting, and providing care for this patient excluding time spent in the performance of separately billed services. All of the aforementioned completed outside of collaborating with the assigned advanced practitioner for a full treatment plan. I have reviewed the advanced practitioner's documentation, and I agree with, and take responsibility for the plan of care Subjective Patient seen and examined at bedside. She had just vomited upon my arrival. She feels nauseas whenever her pain level increases. Her primary concern today is the discharge plan as she is very worried about going home without support. She desires rehab placement. Case management aware- [facility] did not accept; now waiting to hear from [facility] on bed availability. Otherwise, she is tolerating small meals with adequate output. She reports having incontinence on the way to the bathroom. She denies numbness/tingling/gross incontinence or urinary leaking. She denies chest pain, difficulty breathing, abdominal pain, headaches. Review of Systems Review of Systems: All systems reviewed & are unremarkable except as noted in Subjective Physical Exam Physical Exam: VITALS: Reviewed. WEIGHT/BMI reviewed. GEN: Healthy appearing, well-developed, NAD. PSYCH: Good Judgment. AOx3. Normal memory, mood, and affect. HEENT -Head: NC/AT; -Eyes: PERRL, EOMI. No discharge or redn ess; -Ears: External ears are normal. Normal TMs. -Nose: Normal nares. -Mouth and throat: MMM. Normal gums, muc shad, palate,. Good dentition. NECK: Supple, with no masses. CV: RRR, no m/r/g. No lower leg swelling. LUNGS: CTAB, no w/r/c. Breathing easy on room air. ABD: Soft, NT/ND, NBS, no masses or organomegaly. : N/A SKIN: Warm, well perfused. No skin rashes or abnormal lesions. MSK: No deformities, Steady gait with walker assistance. BLE strength 4/5. EXT: No clubbing, cyanosis, or edema. NEURO: Normal muscle strength and tone. No focal deficits. Results & Data Results & Data Vital Signs (Past 12 Hours) Vital Signs Temp Pulse Resp BP Pulse Ox O2 Del Method 06/29/24 08:30 Room Air 06/29/24 07:58 36.9 C 75 18 163/85 H 93 Room Air (2) HTN (hypertension) Hypertension type: unspecified Qualified Code(s): I10 - Essential (primary) hypertension (3) CKD (chronic kidney disease), stage III Chronic kidney disease stage 3 subtype: unspecified whether 3a or 3b Q ualified Code(s): N18.30 - Chronic kidney disease, stage 3 unspecified
[2024-06-30 07:43] VITALS: RESP 18; TEMP 98.1; O2SAT 95
[2024-06-30] MEDS: METOCLOPRAMIDE HCL 5 MG TABLET PO PRN (12:32)
[2024-06-30 12:41] VITALS: BP 149/79; PULSE 86
--- NOTE | 2024-06-30 14:08 | Discharge Summary ---
Discharge Summary Date of Service June 30, 2024 Principal Dx & Hospital Course #1 = Principal Diagnosis (1) Ambulatory dysfunction: Ambulatory dysfunction 2/2 acute on chronic lower back pain in the setting of post-op recovery from L4-L5 laminectomy for spinal stenosis with neurogenic claudication * Patient has history of multiple orthopedic injuries and corrective surgeries in the past * Recovery with most recent surgery has been challenging with ongoing nausea aggravating LBP * Baclofen started yesterday and effectively controls lower back pain * Oxycodone as needed for moderate pain- suggest using between Baclofen doses * PT following (2) HTN (hypertension): Hypertension controlled at home with dual-agents- JUANITO and Beta deepali: * Patient has been experiencing elevated blood pressures since admission 150-160's/90-100's most likely 2/2 pain * Continue Lisinopril and metoprolol as per home routine. * Continue routine BP monitoring and follow-up outpatient (3) CKD (chronic kidney disease), stage III: (4) Hypomagnesemia: Hypomagnesium: * Mag 1.6 on admission, supplementation provided, now Mag 1.8 * Will continue to monitor and replace PRN. Notes For Next Care Provider Martha Lawson is a 64y/o F with PMHx significant for HTN, HLD, chronic rhinitis, post gastric surgery syndrome, B12 malabsorption s/p gastric bypass, recurrent N/V on chronic Zofran PRN, lumbar DDD, cervical DDD s/p cervical spinal fusion, lumbar spinal stenosis, memory changes, depression, CKD stage III, MEYER, KATE and GERD who presented to the ED via EMS with multiple complaints including N/V and back pain after recently undergoing lumbar spinal surgery on 06/19/[address] Joseph Giordano at [facility]. On medicine, nausea/vomiting resolved with fluids. PT/OT evaluated patient, applied for SNF and acute rehab, both were denied given level of function. Patient medically stable for discharge home with home PT/OT. To do: [ ] f/u with PT/OT Medication Changes From Visit -see below Admission HPI Per Admitting Provider Martha Lawson is a 64y/o F with PMHx significant for HTN, HLD, chronic rhinitis, post gastric surgery syndrome, B12 malabsorption s/p gastric bypass, recurrent N/V on chronic Zofran PRN, lumbar DDD, cervical DDD s/p cervical spinal fusion, lumbar spinal stenosis, memory changes, depression, CKD stage III, MEYER, KATE and GERD who presented to the ED via EMS with multiple complaints including N/V and back pain after recently undergoing lumbar spinal surgery on 06/19/[address] Joseph Giordano at [facility]. History obtained from the patient, discussion with ED provider and associated chart review. Underwent hardware removal L5-S1, L4-5 laminectomy, posterior spinal fusion, posterior lumbar interbody fusion on 06/19/24 at [facility]. PT/OT had recommended acute rehabilitation placement following her admission at [facility] however there were reportedly issues with her insurance which subsequently impeded this process and she was ultimately discharged home. Patient lives at home alone. Presented today with complaints of N/V, persistent back pain, poor oral intake and ambulatory dysfunction. Chronic issues with intermittent nausea and vomiting x 4 years. Has been dry heaving with subsequent poor oral intake since yesterday but no episodes of vomiting. No reported fevers. Denies any chest pain, SOB, abdominal pain or BLE edema. Endorses low back pain and discomfort with intermittent muscle spasms. Difficulty with ambulation but no falls or trauma since being home. Endorses some generalized weakness. No alcohol use. No smoking history. Uses medical marijuana PRN for anxiety and depression. ED CM with multiple attempts to obtain rehabilitation placement however were unsuccessful which subsequently prompted admission due to patient's inability to care for herself at home. Discharge Exam Gen: A&O 3 NAD, sarcopenia noted HEENT: NCAT, EOMI, not icteric. External ears normal. No rhinorrhea. Moist mucous membranes. Neck: Supple, full range of motion, no observable masses, No meningeal sign. Lungs: No Respiratory distress. CV: RRR, no edema. Abdomen: Soft, nondistended, No rebound tenderness. MSK: generalized weakness Skin: No rashes, petechiae, lesions. Normal color per patient. Neuro: Normal Gait, Grossly intact. Psych: Appropriate for situation. Updated Medication List Medication Instructions Recorded Confirmed Type multivitamin 1 tab PO QAM 03/30/18 06/26/24 History potassium chloride 10 mEq 10 meq PO QAM 03/30/18 06/26/24 History tablet,extended release pantoprazole 40 mg tablet,delayed 40 mg PO BIDM 05/06/19 06/26/24 History release primidone 50 mg tablet 25 mg PO BID 03/29/21 06/26/24 History lisinopril 5 mg tablet 2.5 mg PO QAM 05/26/21 06/26/24 History trazodone 50 mg tablet 150 mg PO HS 05/26/21 06/26/24 History vortioxetine 10 mg tablet 20 mg PO QAM 09/15/21 06/26/24 History (Trintellix) calcium 250 mg (as 2 tab PO TID 12/12/21 06/26/24 History citrate)-vitamin D3 5 mcg (200 unit) tablet ferrous sulfate 325 mg (65 mg 325 mg PO DAILY 12/12/21 06/26/24 History iron) tablet (Iron (ferrous sulfate)) metoclopramide HCl 5 mg tablet 5 mg PO Q4H PRN Nausea 12/12/21 06/26/24 History alendronate 70 mg tablet 70 mg PO .WEEKLY 06/26/24 06/26/24 History bupropion HCl 100 mg tablet 100 mg PO BID 06/26/24 06/26/24 History cranberry fruit concentrate 250 mg 250 mg PO QAM 06/26/24 06/26/24 History chewable tablet (Azo Cranberry) lorazepam 0.5 mg tablet 0.5 mg PO BID PRN Anxiety 06/26/24 06/26/24 History metoprolol tartrate 25 mg tablet 12.5 mg PO BID 06/26/24 06/26/24 History oxybutynin chloride 15 mg 30 mg PO QAM 06/26/24 06/26/24 History tablet,extended release 24 hr baclofen 10 mg tablet 5 mg (1/2 x 10 mg) PO TID PRN 06/30/24 Rx muscle spasm #14 tabs Hospital Stay Data Consultations 06/26/24 12:40 ED Decision to Admit Stat Pending Results Patient Have Any Pending Studies at Discharge: No Discharge Instructions Given to Patient (Per Discharging Provider) 1. Please follow up with PCP. Total Time Total Time Spent Total Time Spent (In Minutes): I spent a total of 35 minutes in direct patient care, including [id number] time with the patient and/or family, reviewing medical records, ordering and reviewing diagnostic tests, and coordinating care with other healthcare providers. This time includes: history taking, physical examination, medical decision making, counseling, ECG interpretation, imaging interpretation, lab interpretation, orders, and education, excluding time spent in the performance of separately billed services.
== END 2024-06-30 15:50 | disposition home or self-care (01) | DRG 641 ==
LOC: ED 09:36 → EDINP 12:32 → SUATTDRO 12:32 → 3N 14:31

== ENCOUNTER 2024-07-19 09:51 | Inpatient (IN) ==
--- OUTSIDE RECORDS SUMMARY | 2024-07-19 09:58 | External Medical Summary | Summary of Care ---
Author Name Unknown Organization [facility] Address [address] [place] [address] Phone [phone] Care Team Providers Care Enrolled Nurse Name Role Phone Elida Lance DO Primary Care Provider Reason for Visit * Reason Comments Medication Refill Encounter Details Date Type Department Care Team (Late st Contact Info) Description 07/17/2024 Refill Psychiatry, [place] [address] [place] [address] Brooke Deluca CRNP [address] [place] [address] Allergies Active Allergy Reactions Criticality Noted Date Comments Nsaids 02/01/2020 Hx gastric bypass Other Allergy (See Comments) Rash Medium 11/27/2012 Dermabond prineo Penicillins 10/04/1999 Rash, last dose was in her 20's Has safely tolerated ancef before Sulfa Antibiotics 10/04/1999 Rash in her early 20's documented as of this encounter (statuses as of 07/17/2024) Medications MULTIVITAMINS PO CAPS Take 1 Capsule by mouth every evening. Active [facility] IRON 45 MG PO TABS Take 1 Tablet by mouth in the morning. Active LORazepam 0.5 MG Oral Tablet (Ativan) Take 1 Tablet by mouth as needed for Anxiety. 15 Tablet 2 4 8:50 AM EDT 07/17/19 24 Active Additional Information Patient taking differently: 0.5 TabletOral PRN, Anxiety, Reported on 07/13/2024 Metoprolol Tartrate 25 MG Oral Tablet (Lopressor)Indicat ions:HTN, goal below 140/90 TAKE ONE-HALF TABLET BY MOUTH IN THE MORNING AND ONE-HALF TABLET BEFORE BEDTIME 90 Tablet 2 5 7:15 AM EST 01/26/20 24 Active Alendronate Sodium 70 MG Oral Tablet (Fosamax)Indicatio ns:Osteoporosis without current pathological fracture, unspecified osteoporosis type Take 1 Tablet by mouth once a week. 12 Tablet 3 5 2:24 PM EDT 02/27/20 24 Active Trintellix 20 MG Oral Tablet (Vortioxetine HBr) Take 1 Tablet by mouth in the morning. 90 Tablet 1 5 1:41 PM EDT 03/12/19 25 Active Vitamin D-[address] 25 MCG (1000 UT) Oral Tablet (Cholecalciferol) Take 1 Tablet by mouth every evening. Active AZO Cranberry 250-30 MG Oral Tablet Take 1 Tablet by mouth daily. Active Calcium Citrate-Vitamin D 200-3.125 MG-MCG Oral Tablet Take 1 Tablet by mouth 2 times a day. Active Continuation of patient use of medical marijuana is approved Use as directed. Active Dry Eye Relief Drops 0.2-0.2-1 % Ophthalmic Solution (Glycerin-Hypromel lose-PEG 400) Instill 1 Drop into eye as needed for Dry eyes. Active Potassium Chloride Erin ER 10 MEQ Oral Tablet Extended ReleaseIndications :Hypopotassemia TAKE ONE TABLET BY MOUTH EVERY DAY 100 Tablet 1 5 6:22 AM EDT 05/12/19 25 026 Active oxyBUTYnin Chloride ER 15 MG Oral Tablet Extended Release 24 Hour (Ditropan XL)Indications:Uri nary urgency,Urge incontinence of urine Take 2 Tablets [...] 5 1:26 PM EDT 06/11/19 25 Active Lisinopril 2.5 MG Oral Tablet (Prinivil)Indicati ons:HTN, goal below 140/90 Take 1/2 tablet by mouth daily 50 Tablet 3 5 12:53 PM EDT 06/27/19 25 Active Pantoprazole Sodium 40 MG Oral Tablet Delayed Release (Protonix)Indicati ons:Acid reflux Take 1 Tablet by mouth in the morning. 06/30/19 25 Active prednisoLONE Acetate 1 % Ophthalmic Suspension (prednisoLONE Acetate P-F) 1 Drop in the morning and 1 Drop at noon and 1 Drop in the evening and 1 Drop before bedtime. Active Docusate Sodium 100 MG Oral Capsule (Dulcolax Stool Softener) Take 1 Capsule by mouth 2 times a day as needed for Constipation. Active Polyethylene Glycol 3350 17 GM Oral Packet (Miralax) Take 1 Packet by mouth daily as needed for Constipation. Active traZODone HCl 150 MG Oral Tablet (Desyrel) Take 1 Tablet by mouth at bedtime. 90 Tablet 5 8:44 AM EDT 07/09/19 25 Active Baclofen 10 MG Oral Tablet (Lioresal) Take 1 Tablet by mouth 3 times a day as needed for Pain, Moderate (to be alternated with oxycodone per [facility] DC instructions 06/30). 45 Tablet 07/08/19 25 Active Ondansetron 4 MG Oral Tablet Disintegrating (Zofran)Indication s:Nausea and vomiting, unspecified vomiting type Place 1 Tablet on tongue every 8 hours as needed for Nausea. dissolve on tongue. 20 Tablet 07/14/19 25 Active oxyCODONE HCl 5 MG Oral Tablet (Oxy IR) Take 1 Tablet by mouth every 4 hours as needed for Pain, Moderate. 45 Tablet 07/16/19 25 Active buPROPion HCl 100 MG Oral Tablet (Wellbutrin) Take 1 Tablet by mouth in the morning and 1 Tablet before bedtime. 60 Tablet 2 07/18/19 25 Active buPROPion HCl 100 MG Oral Tablet (Wellbutrin) Take 1 Tablet by mouth in the morning and 1 Tablet before bedtime. 60 Tablet 2 5 11:26 AM EST 03/16/19 25 025 Discontin ued(Refil l) documented as of this encounter (statuses as of 07/17/2024) Active Problems Problem Noted Date Diagnosed Date Major depressive disorder, recurrent, in partial remission 12/27/2021 Generalized anxiety disorder 12/27/2021 S/P cervical spinal fusion 02/05/2020 DDD (degenerative disc disease), cervical 2017 Major depressive disorder, recurrent, moderate 0 06/14/2017 Memory changes 01/01/2017 Benign hypertension with CKD (chronic kidney disease) stage III 12/26/2016 Controlled substance agreement signed 04/08/2015 DDD (degenerative disc disease), lumbar 11/21/19 12 [place] Confirmation Research Other*[id number] 11/2009 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 B12 malabsorption s/p gastric bypass 07/14/2002 Allergic rhinitis 02/12/2002 Dyslipidemia, goal LDL below 130 12/04/2001 Chronic rhinitis HTN, goal below 140/90 Spinal stenosis, lumbar Spondylolisthesis documented as of this encounter (statuses as of 07/17/2024) Resolved Problems Problem Noted Date Diagnosed Date [...] as of this encounter (statuses as of 07/17/2024) Immunizations Immunization Administration Dates Next Due COVID-19 mRNA, LNP-s, No Pre serve, 2-Dose Series (Coursmos) 12/08/2020,11/17/2020 Pneumococcal Conjugate Vacc, 13 Valent (Prevnar) [...] Answer Date Recorded PHQ Adult Total Score 0 07/06/2024 Hunger Vital Sign Answer Date Recorded Within the past 12 months, y ou worried that your food would run out before you got the money to buy more. Never true Within the past 12 months, t he food you bought just didn't last and you didn't have money to get more. Sometimes true 07/2024 Childcare Answer Date Recorded Do you feel overwhelmed with taking care of a child, family member or friend? No 07/06/2024 Does your family need help f inding childcare? (Household - for ages 0-17 years) Not on file 07/06/2024 Clothing Answer Date Recorded Have you been unable to get clothing when it was really needed? No 07/06/2024 Is your family able to get c lothes or diapers when needed? (Household - for ages 0-17 years) Not on file 07/06/2024 Personal Safety Answer Date Recorded Do you feel unsafe or have concerns for your saf ety? No 07/06/2024 Do you have concerns for you r family's safety? (Household - for ages 0-17 years) Not on file 07/06/2024 Utilities Answer Date Recorded Do you have trouble paying y our heating, water, or electric bill? Yes 07/06/2024 Is your family able to pay t he heat, water, or electric bill? (Household - for ages 0-17 years) Not on file 07/06/2024 Does your family have access to good internet? (Household - for ages 0-17 years) Not on file 07/06/2024 Employment Status Answer Date Recorded Are you unemployed or without regular income? No 07/06/2024 Does the household have a re gular source of income? (Household - for ages 0-17 years) Not on file 07/06/2024 Social Connections Answer Date Recorded How often do you feel lonely or isolated from th ose around you? Never 07/06/2024 Financial Resource Strain Answer Date R ecorded Do you have any trouble payi ng for your medications, or do you think you might in the future? No 07/06/2024 Does your family have troubl e paying for medicine? (Household - for ages 0-17 years) Not on file 07/06/2024 Transportation Needs Answer Date Record ed Do you have trouble getting a ride to medical visits or work? (Adult - for ages 18 years and over) Not on file 07/06/2024 Does your family have a hard time getting a ride to doctors visits? (Household - for ages 0-17 years) Not on file 07/06/2024 Has lack of transportation k ept you from medical appointments, meetings, work, or from getting things needed for daily living? Check all that apply. No 07/06/2024 Do you (or your family) have trouble finding or paying for a ride (transportation)? (Household - for ages 0-17 years) Not on file 07/06/2024 Housing Stability Answer Date Recorded Do you currently live in a s helter or have no steady place to sleep at night? No 07/06/2024 Do you think you are at risk of becoming homeless? (Adult - for ages 18 years and over) Not on file 07/06/2024 Does your family worry about paying for your home or becoming homeless? (Household - for ages 0-17 years) Not on file 0 07/06/2024 Are you homeless or worried that you might be in the future? No 07/06/2024 Are you (or your family) arjun eless [...] the money to buy more. Never true Within the past 12 months, t he food you bought just didn't last and you didn't have money to get more. Sometimes true 07/2024 Do you need food for this week? No 07/06/2024 Comments No Sex and Gender Information Value [...] of Assessment Author No 06/19/2024 6:06 PM Krystle Thacker RN * Are you blind or do you have serious difficulty seeing, even when wearing glasses? Answer Date of Assessment Author No 06/19/2024 6:06 PM Krystle Thacker RN * Do you have serious difficulty walking or climbing stairs? (5 years old or older) Answer Date of Assessment Author Yes 06/19/2024 6:06 PM Krystle Thacker RN * Do you have difficulty dressing or bathing? (5 years old or older) Answer Date of Assessment Author No 06/19/2024 6:06 PM Krystle Thacker RN * Because of a physical, mental, or emotional condition, do you have difficulty doing errands alone such as visiting a doctor’s office or shopping? (15 years old or older) Answer Date of Assessment Author Yes 06/19/2024 6:06 PM Krystle Thacker RN documented as of this encounter Mental Status * Because of a physical, mental, or emotional condition, do you have serious difficulty concentrating, remembering, or making decisions? (5 years old or older) Answer Entry Date Author No 06/19/2024 6:06 PM Krystle Thacker RN documented in this encounter Miscellaneous Notes * Telephone Encounter - Domonique Fields CRNP - 07/17/2024 12:48 PM EDT Signed Prescriptions: Disp Refills buPROPion HCl 100 MG Oral Tablet (Wellbutr*60 Tab*2 Sig: Take 1 Tablet by mouth in the morning and 1 Tablet before bedtime.Authorizing Provider: DOMONIQUE FIELDS documented in this encounter Plan of Treatment Upcoming Encounters Date Type Department Care Team (Late st Contact Info) Description 07/23/2024 1:00 PM EDT Telemedicine Nutrition Services [address] [place] [address] Jasvir Johnson, RDN [address] [place] [address] 07/28/2024 3:30 PM EDT Telemedicine [facility] [address] [place] [address] Roly Miller, [facility] [address] [place] [address] 08/06/2024 12:15 PM EDT Office Visit Orthopaedics Spine Surgery, [place] [address] [place] [address] oJseph Giordano MD [address] [place] [address] 08/19/2024 1:00 PM EDT Telemedicine Medical Pain Management [facility] [place] [address] [place], [place] [id number] Crystal Betancur CRNP [address] [place] [address] 09/16/2024 12:30 PM EDT Telemedicine Psychiatry, [place] [address] [place] [id number] Brooke Deluca CRNP [address] [place] [address] 10/07/2024 2:40 PM EDT Telemedicine Endocrinology [address] [place] [address] Daniel Franco MD [address] [place] [address] 10/15/2024 3:30 PM EDT Office Visit Neurology [facility] [place] [address] [facility] [place] [address] [facility]C [facility] [place] [id number] 10/21/2024 12:10 PM EDT [facility] [place] [facility] [address] [facility] [place] [address] Elida Lance DO [address] [facility] [place] [address] 02/03/2026 2:20 PM EST [facility] [place] [facility] [address] [facility] [place] [address] Yessi Morton PA-C [address] [place] [address] [place] [address] Health Maintenance Due Date [...] Additional history exists CKD PHOS USE SMARTSET 43231 10/17/202410/02, 03/16/2022, 02/09/2021, Additional history exists GFR 12/22/2024 06/22/2024, 06/03, 06/20/2024, Additional history exists Cologuard 04/04/2025 04/04/2022, 03/05, 03/27/2022 Colorectal Cancer Screening 04/04/2025 CKD HGB USE SMARTSET 57561 06/22/202506/22, 06/21/2024, 06/20/2024, Additional history exists Depression Monitoring 07/06/2025 07/06/2024 , 05/20/2024, 01/02/2024, Additional history exists Diabetes Screening 06/23/2027 06/22/2024, 0 06/21/2024, 06/20/2024, Additional history exists Lipid Panel 09/12/2028 09/13/2023, 10/02, 02/03/2019, Additional history exists DTap/Tdap Vaccines (3 - Td or Tdap) 02/18/2033 02/18/2023, 02/06/2010, 01/11/2005, Additional history exists Zoster Vaccines Completed 06/17/2018, 02/02, 07/09/2016 Influenza Vaccine (FLU shot) Completed , 03/20/2023, 01/31/2022, Additional history exists EKG Completed 06/20/2024, 04/0 03/2024, 08/14/2022, Additional history exists HPV (Gardasil) Vaccine Aged [...] this encounter Medical Devices Implanted Type Area Human Resources Compliance Manager Device Identifier Shelf Expiration Date Model / Serial / Lot Graft Infuse Bone Sm [id number] - [id number] Implanted:Qt y: 1 on 02/22/2012 at [facility] [place] N/A: Spine Lumbar [employer] : NEUROLOGIC PAIN 08/01/2014 [id number] / / [id number] Screw 6x45 Poly Si [id number] - [id number] Implanted:Qt y: 2 on 02/22/2012 at [facility] [place] N/A: Spine Lumbar JNJ : [employer] [id number] / / Screw 7x35 Poly Si [id number] - [id number] Implanted:Qt y: 2 on 02/22/2012 at [facility] [place] N/A: Spine Lumbar JNJ : [employer] [id number] / / Asif 5.5x55 Ti Prbnt [id number] - [id number] Implanted:Qt y: 2 on 02/22/2012 at [facility] [place] N/A: Spine Lumbar JNJ : DEPUY SPINE [id number] / / Screw Set Sng Inner [id number] - [id number] Implanted:Qt y: 4 on 02/22/2012 at [facility] [place] N/A: Spine Lumbar JNJ : DEPUY SPINE [id number] / / Cage 28x8 Leopard [id number] - [id number] Implanted:Qt y: 1 on 02/22/2012 at [facility] [place] N/A: Spine Lumbar JNJ : [employer] [id number] / / Implant Brst Mod Cls Pro 360cc - [id number] Implanted:Qt y: 1 on 11/12/2012 at [facility] [place] Right: Breast [employer] KRISSY 09/11/2017 [id number] / [id number] / [id number] Implant Brst Mod Cls Pro 360cc - [id number] Implanted:Qt y: 1 on 11/12/2012 at [facility] [place] Left: Breast [employer] KRIS[employer] 08/12/2017 [id number] / [id number] / [id number] 4.0 X 14 Variable Self Starting Screw Implanted:Qt y: 4 on 02/05/2020 by Luis Eduardo Ross MD at OR [facility] N/A: Spine Cervical KWADWO [id number] / / 1 Level 20mm Cuming View Plate Implanted:Qt y: 1 on 02/05/2020 by Luis Eduardo Ross MD at [facility] N/A: Spine Cervical KWADWO [id number] / / [id number] Alcutian Implanted:Qt y: 1 on 02/05/2020 by Luis Eduardo Ross MD at [facility] N/A: Spine Cervical KWADWO [id number] / / Description:alctuian cage 2.5cc Vitoss Bimodal Foam Pack Implanted:Qt y: 1 on 02/05/2020 by Luis Eduardo Ross MD at [facility] N/A: Spine Cervical KWADWO [id number] 11/29/2020 [id number] / [id number] / [id number] Sling Desara One - [id number] Implanted:Qt y: 1 on 08/31/2022 by Chico Perry MD at OR [facility] N/A: Vagina [employer] 08/10/2023 [id number] / / [id number] Bone Mtrx Vivigen Formble [facility] - [id number] - [id number] Implanted:Qt y: 1 on 06/19/2024 by Joseph Giordano MD at [facility] [place] N/A: Spine Lumbar [employer] 04/29/2025 [id number] / [id number] / [id number] Implant Graft Bone Ifact 2.5cc - [id number] Implanted:Qt y: 1 on 06/19/2024 by Joseph Giordano MD at [facility] [place] Spine Lumbar [employer] [id number] 04/03/2026 700-025 / / [id number] Eit/ Plif 13mm 12 Degree 22/9 Implanted:Qt y: 1 on 06/19/2024 by Joseph Giordano MD at [facility] [place] N/A: Spine Lumbar 08/31/2025 [id number] / / [id number] Duragen Plus 1x3 Dp 1013 Min5 - [id number] - [id number] Implanted:Qt y: 1 on 06/19/2024 by Joseph Giordano MD at [facility] [place] N/A: Spine Lumbar [employer] KRISSY [id number] 12/01/2026 [id number] / [id number] / [id number] Screw 6x45 Poly Si [id number] - [id number] Implanted:Qt y: 2 on 06/19/2024 by Joseph Giordano MD at [facility] [place] N/A: Spine Lumbar JNJ : [employer] [id number] / / Screw 7x45 Poly Si [id number] - [id number] Implanted:Qt y: 2 on 06/19/2024 by Joseph Giordano MD at [facility] [place] N/A: Spine Lumbar JNJ : [employer] [id number] / / Pre Lordosed Asif W Line 45mm - [id number] Implanted:Qt y: 2 on 06/19/2024 by Joseph Giordano MD at [facility] [place] N/A: Spine Lumbar JNJ : DEPUY SPINE [id number] / / Screw Set Sng Inner [id number] - [id number] Implanted:Qt y: 4 on 06/19/2024 by Joseph Giordano MD at [facility] [place] N/A: Spine Lumbar JNJ : [employer] [id number] / / Expedium Ti Sfx 5.5 Lat A6 - [id number] Implanted:Qt y: 1 on 06/19/2024 by Joseph Giordano MD at [facility] [place] N/A: Spine Lumbar JNJ : [employer] [id number] / / documented as of this encounter [...] and were consensually agreed upon. Care Teams Enrolled Nurse Relationship Specialty Start Date End Date Elida Lance DO [address] [place] [address] PCP - General Family Medicine 05/22/24 documented as of this encounter
--- OUTSIDE RECORDS SUMMARY | 2024-07-19 09:58 | External Medical Summary | Summary of Care ---
Author Name Unknown Organization [facility] Address [address] [place] [facility] [place] [address] Phone [phone] Care Team Providers Care Bingo Worker Name Role Phone Elida Lance DO Primary Care Provider Reason for Visit * Reason Comments Medication Refill Encounter Details Date Type Department Care Team (Late st Contact Info) Description 07/17/2024 Refill Psychiatry, [place] [address] [facility] [address] Brooke Deluca CRNP [address] [facility] [address] Allergies Active Allergy Reactions Criticality Noted [...] Moderate (to be alternated with oxycodone per [facility] instructions 06/30). 45 Tablet 07/08/19 25 [...] DDD (degenerative disc disease), lumbar 11/21/19 12 [place] Confirmation Research Other*[id number] 06/0 11/2009 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 B12 [...] mRNA, LNP-s, No Pre serve, 2-Dose Series (PureLiFi) 12/08/2020,11/17/2020 Pneumococcal Conjugate Vacc, 13 Valent (Prevnar) [...] encounter Miscellaneous Notes * Telephone Encounter - Radha Frank CPhT - 07/17/2024 12:40 PM EDTNo prescriptions requested or ordered in this encounter documented in this encounter Plan of Treatment Upcoming Encounters Date Type Department Care Team (Late st Contact Info) Description 07/23/2024 1:00 PM EDT Telemedicine Nutrition Services [address] [place] [address] Jasvir Johnson, RDN [address] [place] [address] [place] [address] 07/28/2024 3:30 PM EDT Telemedicine Psychology, [address] [address] Roly Miller, BOUCHRA [address] [place] [address] 08/06/2024 12:15 PM EDT [facility] [address] [place] [id number] Joseph Giordano MD [address] [place], [place] [id number] 08/19/2024 1:00 PM EDT Telemedicine [facility] [address] [place] [address] Crystal Betancur CRNP [address] [place] [address] 09/16/2024 12:30 PM EDT Telemedicine Psychiatry, [place] [address] [place] [address] Brooke Deluca CRNP [address] [place] [address] 10/07/2024 2:40 PM EDT Telemedicine Endocrinology [address] [place] [address] Daniel Franco MD [address] [place] [address] 10/15/2024 3:30 PM EDT Office [facility] [place] [address] [facility] [place] [address] Mariya Harding PA-C [address] [place] [address] 10/21/2024 12:10 PM EDT Office [facility] [place] [facility] [address] [facility] [place] [address] Elida Lance DO [address] [facility] [place] [address] 02/03/2026 2:20 PM EST [facility] [address] [facility] [place] [address] Yessi Morton, JENNIFER [address] [place] [address] [place] [id number] Health Maintenance Due Date Last Done Comments Fecal Occult Blood Test 2006 Sigmoidoscopy 2006 Mammogram 08/09/2017 08/09/2016, 0609/2015, 08/05/2014, Additional history exists Pneumococcal Vaccine: 50+ Years (3 of 3 - PCV20 or PCV21) 07/09/2021 07/09/2016, 08/21/2013 Colonoscopy 01/14/2022 01/15/2012, 01/15/2012 COVID-19 Vaccine (3 - season) 2023 12/08/2020, 11/17/2020 Albumin/Creatinine Ratio 03/21/2024 024, 02/03/2019, 09/05/2017, Additional history exists CKD PHOS USE SMARTSET 98604 10/17/202410/02, 03/16/2022, 02/09/2021, Additional history exists GFR 12/22/2024 06/22/2024, 06/03, 06/20/2024, Additional history exists Cologuard 04/04/2025 04/04/2022, 03/05, 03/27/2022 Colorectal Cancer Screening 04/04/2025 CKD HGB USE SMARTSET 64524 06/22/202506/22, 06/21/2024, 06/20/2024, Additional history exists Depression [...] this encounter Medical Devices Implanted Type Area Reproductive Endocrinologist Device Identifier Shelf Expiration Date Model / Serial / Lot Graft Infuse Bone Sm [id number] - [id number] Implanted:Qt y: 1 on 02/22/2012 at OR [facility] N/A: Spine Lumbar [employer] : NEUROLOGIC PAIN 08/01/2014 [id number] / / [id number] Screw 6x45 Poly Si [id number] - [id number] Implanted:Qt y: 2 on 02/22/2012 at OR [facility] N/A: Spine Lumbar JNJ : [employer] [id number] / / Screw 7x35 Poly Si [id number] - [id number] Implanted:Qt y: 2 on 02/22/2012 at OR [facility] N/A: Spine Lumbar JNJ : [employer] [id number] / / Asif 5.5x55 Ti Prbnt [id number] - [id number] Implanted:Qt y: 2 on 02/22/2012 at OR [facility] N/A: Spine Lumbar JNJ : DEPUY SPINE [id number] / / Screw Set Sng Inner [id number] - [id number] Implanted:Qt y: 4 on 02/22/2012 at OR [facility] N/A: Spine Lumbar JNJ : DEPUY SPINE [id number] / / Cage 28x8 Leopard [id number] - [id number] Implanted:Qt y: 1 on 02/22/2012 at OR [facility] N/A: Spine Lumbar JNJ : [employer] [id number] / / Implant Brst Mod Cls Pro 360cc - [id number] Implanted:Qt y: 1 on 11/12/2012 at OR [facility] Right: Breast MENTOR KRISSY 09/11/2017 350-7360 / [id number] / [id number] Implant Brst Mod Cls Pro 360cc - [id number] Implanted:Qt y: 1 on 11/12/2012 at OR [facility] Left: Breast [employer] KRISSY 08/12/2017 350-7360 / [id number] / [id number] 4.0 X 14 Variable Self Starting Screw Implanted:Qt y: 4 on 02/05/2020 by Luis Eduardo Ross MD at OR [facility] N/A: Spine Cervical KWADWO [id number] / / 1 Level 20mm [place] View Plate Implanted:Qt y: 1 on 02/05/2020 by Luis Eduardo Ross MD at OR [facility] N/A: Spine Cervical KWADWO [id number] / / [id number] Alcutian Implanted:Qt y: 1 on 02/05/2020 by Lius Eduardo Ross MD at OR [facility] N/A: Spine Cervical KWADWO [id number] / / Description:alctuian cage 2.5cc Vitoss Bimodal Foam Pack Implanted:Qt y: 1 on 02/05/2020 by Luis Eduardo Ross MD at OR [facility] N/A: Spine Cervical KWADWO [id number] 11/29/2020 [id number] / [id number] / [id number] Sling Desara One - [id number] Implanted:Qt y: 1 on 08/31/2022 by Chico Perry MD at OR [facility] N/A: Vagina [employer] 08/10/2023 [id number] / / [id number] Bone Mtrx Vivigen Formble 10cc - [id number] - [id number] Implanted:Qt y: 1 on 06/19/2024 by Joseph Giordano MD at OR [facility] N/A: Spine Lumbar [employer] 04/29/2025 [id number] / [id number] / [id number] Implant Graft Bone Ifact 2.5cc - [id number] Implanted:Qt y: 1 on 06/19/2024 by Joseph Giordano MD at OR [facility] Spine Lumbar [employer] [id number] 04/03/2026 700-025 / / [id number] Eit/ Plif 13mm 12 Degree 22 Implanted:Qt y: 1 on 06/19/2024 by Joseph Giordano MD at OR [facility] N/A: Spine Lumbar 08/31/2025 [id number] / / [id number] Duragen Plus 1x3 Dp 1013 Min5 - [id number] - [id number] Implanted:Qt y: 1 on 06/19/2024 by Joseph Giordano MD at OR [facility] N/A: Spine Lumbar [employer]TEGRA [employer]IF[employer]ibailin KRISSY [id number] 12/01/2026 [id number] / [id number] / [id number] Screw 6x45 Poly Si [id number] - [id number] Implanted:Qt y: 2 on 06/19/2024 by Joseph Giordano MD at OR [facility] N/A: Spine Lumbar JNJ : [employer] [id number] / / Screw 7x45 Poly Si [id number] - [id number] Implanted:Qt y: 2 on 06/19/2024 by Joseph Giordano MD at OR [facility] N/A: Spine Lumbar JNJ : [employer] [id number] / / Pre Lordosed Asif W Line 45mm - [id number] Implanted:Qt y: 2 on 06/19/2024 by Joseph Giordano MD at OR [facility] N/A: Spine Lumbar JNJ : DEPUY SPINE [id number] / / Screw Set Sng Inner [id number] - [id number] Implanted:Qt y: 4 on 06/19/2024 by Joseph Giordano MD at OR [facility] N/A: Spine Lumbar JNJ : [employer] [id number] / / Expedium Ti Sfx 5.5 Lat A6 - [id number] Implanted:Qt y: 1 on 06/19/2024 by Joseph Giordano MD at OR [facility] N/A: Spine Lumbar JNJ : [employer] [id number] / / documented as of this encounter [...] 8:00 AM 08/31/2022 1:58 PM This order reflects the patients wishes [...] and were consensually agreed upon. Care Teams Bingo Worker Relationship Specialty Start Date End Date Elida Lance DO [address] [place] [address] PCP - General Family Medicine 05/22/24 documented as of this encounter
--- OUTSIDE RECORDS SUMMARY | 2024-07-19 09:59 | External Medical Summary | Summary of Care ---
Author Name Unknown Organization [facility] Address [address] [facility] [place] [address] Phone [phone] Care Team Providers Care Vp Outcomes Name Role Phone Elida Lance DO Primary Care Provider Reason for Visit * - Authorized Specialty Diagnoses / Procedures Referred By Traci rizzo Referred To Contact Referral ID Status Reason Start Date Expiration Date V isits Requested Visits Authorized [id number] Authorized 11/03/2023 11/01/2024 [id number] Encounter Details Date Type Department Care Team (Late st Contact Info) Description 07/15/2024 2:00 PM EDT Telemedicine Psychiatry, [facility] [address] [place] [address] Brooke Deluca CRNP [address] [place] [address] Major depressive disorder, recurrent episode, moderate (HCC)* Allergies Active Allergy Reactions Criticality Noted Date Comments Nsaids 02/01/2020 Hx gastric bypass Other Allergy (See Comments) Rash Medium 11/27/2012 Dermabond prineo Penicillins 10/04/1999 Rash, last dose was in her 20's Has safely tolerated ancef before Sulfa Antibiotics 10/04/1999 Rash in her early 20's documented as of this encounter (statuses as of 07/15/2024) Medications MULTIVITAMINS PO CAPS Take 1 Capsule [...] medical marijuana is approved Use as directed. A ctive Dry Eye Relief Drops 0.2-0.2-1 % Ophthalmic [...] Moderate (to be alternated with oxycodone per [facility] instructions 06/30). 45 Tablet 07/08/19 25 [...] Pain, Moderate. 45 Tablet 07/16/19 25 Active documented as of this encounter (statuses as of 07/15/2024) Active Problems Problem Noted Date Diagnosed Date Major depressive disorder, recurrent, in partial remission 12/27/2021 Generalized anxiety disorder 12/27/2021 S/P cervical spinal fusion 02/05/2020 DDD (degenerative disc disease), cervical 2017 Major depressive disorder, recurrent, moderate 0 06/14/2017 Memory changes 01/01/2017 Benign hypertension with CKD (chronic kidney disease) stage III 12/26/2016 Controlled substance agreement signed 04/08/2015 DDD (degenerative disc disease), lumbar 11/21/19 12 [place] Confirmation Research Other*[id number] 11/2009 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 B12 malabsorption s/p gastric bypass 07/14/2002 Allergic rhinitis 02/12/2002 Dyslipidemia, goal LDL below 130 12/04/2001 Chronic rhinitis HTN, goal below 140/90 Spinal stenosis, lumbar Spondylolisthesis documented as of this encounter (statuses as of 07/15/2024) Resolved Problems Problem Noted Date Diagnosed Date [...] as of this encounter (statuses as of 07/15/2024) Immunizations Name Administration Dates Next Due COVID-19 mRNA, LNP-s, No Pre serve, 2-Dose Series (Reebonz) 12/08/2020,11/17/2020 Pneumococcal Conjugate Vacc, 13 Valent (Prevnar) [...] Krystle Thacker RN documented in this encounter Progress Notes * Brooke Deluca CRNP - 07/15/2024 2:07 PM EDT OUTPATIENT PSYCHIATRY RETURN VISIT DIVISION OF PSYCHIATRY [address] [address] Name: Martha Lawson : 1960 Date and Time Patient was Seen: 07/15/2024 at 2:08 PM Patient location: HOME. I was not in a hospital or clinic location. After connecting through [employer], patient was verified with two unique identifiers. 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 Methods to assure confidentiality were taken. Patient acknowledged consent and understanding of privacy and security of the Telemedicine visit. The patient agreed to participate. Start Time: 2:00 pm Stop Time: 2:30 pm Physical Location of patient: Home CC: I have not been doing well INTERVAL HISTORY: Patient reports that she is struggling since having spinal surgery. She feels that her pain is no well controlled and that she is also having issues with nausea. She states that her insurance denied her going to rehab. She states that she is struggling with feeling anxious about her health. She is taking her psychiatric medications regularly. She does not want to make any psychiatric medications change.. Pt denies current or recent active or passive suicidal ideation. Denies experiencing any current or recent AVH, paranoia, and no other delusions endorsed. No signs or symptoms suggesting the presence of terri or psychosis present on exam today. Describes sleep and appetite as WNL. Discussed risks and benefits of medications. Discussed how to contact ANEUDY if needed through My Chart. DX MDD, [...] Has safely tolerated ancef before Sulfa Antibiotics Rash in her early 20's CURRENT MEDICATIONS: Current Outpatient Medications Medication Sig Dispense Refill MULTIVITAMINS PO CAPS Take 1 Capsule by mouth every evening. [facility]S IRON 45 MG PO TABS Take 1 Tablet by mouth in the morning. LORazepam 0.5 MG Oral Tablet (Ativan) Take 1 Tablet by mouth as needed for Anxiety. (Patient takingdifferently: Take 0.5 Tablets by mouth as needed for Anxiety.) 15 Tablet 2 Metoprolol Tartrate 25 MG [...] Tablet by mouth daily. Calcium Citrate-Vitamin D 200-3.125 MG-MCG Oral Tablet Take 1 Tablet by mouth 2 times a day. Continuation of patient use of medical marijuana is approved Use as directed. Dry Eye Relief Drops 0.2-0.2-1 % Ophthalmic Solution (Caskfimv-Qzkvsdsozqat-RFS 400) Instill 1 Dropinto eye as needed [...] as needed for Nausea. 20 Tablet 0 Primidone 50 MG Oral Tablet (Mysoline) Take one-half tablet by mouth twice daily 90 Tablet 1 Lisinopril 2.5 MG Oral Tablet (Prinivil) Take 1/2 tablet by mouth daily 50 Tablet 3 Pantoprazole Sodium 40 MG Oral Tablet Delayed Release (Protonix) Take 1 Tablet by mouth in the morning. prednisoLONE Acetate 1 % Ophthalmic Suspension (prednisoLONE Acetate P-F) 1 Drop in the morning and1 Drop at noon and 1 Drop in the evening and 1 Drop before bedtime. Docusate Sodium 100 MG Oral Capsule (Dulcolax Stool Softener) Take 1 Capsule by mouth 2 times a dayas needed for Constipation. Polyethylene Glycol 3350 17 GM Oral Packet (Miralax) Take 1 Packet by mouth daily as needed for Constipation. traZODone HCl 150 MG Oral Tablet (Desyrel) Take 1 Tablet by mouth at bedtime. 90 Tablet 0 Baclofen 10 MG Oral Tablet (Lioresal) Take 1 Tablet by mouth 3 times a day as needed for Pain, Moderate (to be alternated with oxycodone per [facility] instructions 06/30). 45 Tablet 0 Ondansetron 4 MG Oral Tablet Disintegrating (Zofran) Place 1 Tablet on tongue every 8 hours as needed for Nausea. dissolve on tongue. 20 Tablet 0 oxyCODONE HCl 5 MG Oral Tablet (Oxy IR) Take 1 Tablet by mouth every 4 hours as needed for Pain, Moderate. 45 Tablet 0 No current facility-administered medications for this visit. Facility-Administered Medications Ordered in Other Visits Medication Dose Route Frequency Provider Last Rate Last Admin glycopyrrolate (ROBINUL) inj Once PRN Tj Rincon CRNA 0.6 mg at 02/22/12 1103 neostigmine methylsulfate (PROSTIGMIN) 1 MG/ML inj Once PRN Tj Rincon CRNA 3 mg at 02/22/12 1103 RECENT LABS/IMAGING: Recent Results (from the past 4 weeks) GLUCOSE METER, POINT OF CARE Collection Time: 06/19/24 10:56 AM Result Value Ref Range Glucose - POCT 81 70 - 120 mg/dL TYPE AND SCREEN Collection Time: 06/19/24 11:00 AM Result Value Ref Range ABO O Rh Positive Red Blood Cell Antibody Screen Negative Specimen Expiration Date 06/22/2024 23:59 GLUCOSE METER, POINT OF CARE Collection Time: 06/19/24 2:01 PM Result Value Ref Range Glucose - POCT 84 70 - 120 mg/dL CBC Collection Time: 06/20/24 6:15 AM Result Value Ref Range WBC 6.48 4.00 - 10.80 K/uL RBC 2.11 3.85 - 5.15 M/uL HGB 6.7 (L) 12.0 - 15.3 g/dL HCT 20.9 (L) 36.0 - 45.2 % MCV 99.1 81.5 - 97.5 fL MCH 31.8 27.0 - 34.0 pg MCHC 32.1 32.0 - 36.0 g/dL RDW 13.6 11.5 - 15.5 % PLT 133 (L) 140 - 400 K/uL MPV 9.4 6.6 - 11.1 fL NRBCs 0 <=0 /100 WBCs BASIC METABOLIC PANEL Collection Time: 06/20/24 6:15 AM Result Value Ref Range BUN 9 6 - 20 mg/dL CREATININE 0.8 0.5 - 1.0 mg/dL EGFR 80 >=60 mL/min SODIUM 140 135 - 146 mmol/L POTASSIUM 4.7 3.5 - 5.1 mmol/L CHLORIDE 110 (H) 98 - 107 mmol/L CO2 23 22 - 32 mmol/L ANION GAP 7 7 - 15 mmol/L GLUCOSE 80 70 - 120 mg/dL CALCIUM 6.2 (L) 8.4 - 10.2 mg/dL PREPARE PACKED RED BLOOD CELLS Collection Time: 06/20/24 9:25 AM Result Value Ref Range Unit Product Code [id number] Unit Number [id number] Unit ABO O Unit Rh POS Unit Crossmatch Compatible Unit Status PT Unit Blood Type OPOS Unit Expiration [id number] Unit Barcode 5100 CBC Collection Time: 06/21/24 5:48 AM Result Value Ref Range WBC 7.23 4.00 - 10.80 K/uL RBC 2.66 3.85 - 5.15 M/uL HGB 8.4 (L) 12.0 - 15.3 g/dL HCT 26.0 (L) 36.0 - 45.2 % MCV 97.7 81.5 - 97.5 fL MCH 31.6 27.0 - 34.0 pg MCHC 32.3 32.0 - 36.0 g/dL RDW 14.6 11.5 - 15.5 % PLT 112 (L) 140 - 400 K/uL MPV 9.6 6.6 - 11.1 fL NRBCs 0 <=0 /100 WBCs BASIC METABOLIC PANEL Collection Time: 06/21/24 5:48 AM Result Value Ref Range BUN 7 6 - 20 mg/dL CREATININE 0.8 0.5 - 1.0 mg/dL EGFR 85 >=60 mL/min SODIUM 136 135 - 146 mmol/L POTASSIUM 4.4 3.5 - 5.1 mmol/L CHLORIDE 108 (H) 98 - 107 mmol/L CO2 20 (L) 22 - 32 mmol/L ANION GAP 8 7 - 15 mmol/L GLUCOSE 101 70 - 120 mg/dL CALCIUM 6.7 (L) 8.4 - 10.2 mg/dL CBC Collection Time: 06/22/24 6:02 AM Result Value Ref Range WBC 6.63 4.00 - 10.80 K/uL RBC 2.77 3.85 - 5.15 M/uL HGB 8.6 (L) 12.0 - 15.3 g/dL HCT 27.0 (L) 36.0 - 45.2 % MCV 97.5 81.5 - 97.5 fL MCH 31.0 27.0 - 34.0 pg MCHC 31.9 32.0 - 36.0 g/dL RDW 14.3 11.5 - 15.5 % PLT 141 140 - 400 K/uL MPV 9.3 6.6 - 11.1 fL NRBCs 0 <=0 /100 WBCs BASIC METABOLIC PANEL Collection Time: 06/22/24 6:02 AM Result Value Ref Range BUN 6 6 - 20 mg/dL CREATININE 0.8 0.5 - 1.0 mg/dL EGFR 82 >=60 mL/min SODIUM 139 135 - 146 mmol/L POTASSIUM 4.8 3.5 - 5.1 mmol/L CHLORIDE 109 (H) 98 - 107 mmol/L CO2 20 (L) 22 - 32 mmol/L ANION GAP 10 7 - 15 mmol/L GLUCOSE 79 70 - 120 mg/dL CALCIUM 7.8 (L) 8.4 - 10.2 mg/dL URINALYSIS, REFLEX TO CULTURE (CUP ONLY) Collection Time: 07/06/24 12:26 PM Result Value Ref Range Urinalysis, Reflex to Culture Specimen Specimen collected and received URINALYSIS, REFLEX TO CULTURE Collection Time: 07/06/24 12:26 PM Result Value Ref Range Color, Urine Yellow Colorless, Light Yellow, Yellow, Dark Yellow Clarity, Urine Slightly Cloudy (A) Clear Glucose, Urine Negative Negative mg/dL Bilirubin, Urine Negative Negative Ketone, Urine 40 (A) Negative mg/dL Specific [place], Urine 1.020 1.003 - 1.030 Blood, Urine Negative Negative pH, Urine 5.5 5.0 - 7.5 Units Protein, Urine Trace (A) Negative mg/dL Urobilinogen, Urine Normal Normal mg/dL Nitrite, Urine Negative Negative Esterase, Urine Large (A) Negative RBC, Urine 0-2 0 - 2 /HPF WBC, Urine 20-29 (A) 0 - 2 /HPF Bacteria, Urine 101-150 (A) 0 - 25 /HPF Hyaline, Cast, Urine 1-4 (A) None /LPF Culture, Urine CULTURE, URINE, QUANTITATIVE Collection Time: 07/06/24 12:26 PM Specimen: Urine, Clean Catch Result Value Ref Range Culture Growth 10,000 to 100,000 colonies/mL Enterococcus species (A) Susceptibility Enterococcus species - MICROBROTH DILUTIONS Ampicillin Susceptible Nitrofurantoin Susceptible Tetracycline Susceptible Vancomycin Susceptible VITALS There were no vitals filed for this visit. Wt Readings from Last 3 Encounters: 07/13/24 52.1 kg (114 lb 12.8 oz) 06/19/24 56.4 kg (124 lb 5.4 oz) 06/02/24 57.7 kg (127 lb 1.6 oz) There is no height or weight on file to calculate BMI. CURRENT MEDICATIONS: Current Outpatient Medications Medication Sig Dispense Refill MULTIVITAMINS PO CAPS Take 1 Capsule by mouth every evening. CVS IRON 45 MG PO TABS Take 1 Tablet by mouth in the morning. LORazepam 0.5 MG Oral Tablet (Ativan) Take 1 Tablet by mouth as needed for Anxiety. (Patient takingdifferently: Take 0.5 Tablets by mouth as needed for Anxiety.) 15 Tablet 2 Metoprolol Tartrate 25 MG [...] Tablet by mouth daily. Calcium Citrate-Vitamin D 200-3.125 MG-MCG Oral Tablet Take 1 Tablet by mouth 2 times a day. Continuation of patient use of medical marijuana is approved Use as directed. Dry Eye Relief Drops 0.2-0.2-1 % Ophthalmic Solution (Mbigeyse-Nliofekgooul-IHX 400) Instill 1 Dropinto eye as needed [...] as needed for Nausea. 20 Tablet 0 Primidone 50 MG Oral Tablet (Mysoline) Take one-half tablet by mouth twice daily 90 Tablet 1 Lisinopril 2.5 MG Oral Tablet (Prinivil) Take 1/2 tablet by mouth daily 50 Tablet 3 Pantoprazole Sodium 40 MG Oral Tablet Delayed Release (Protonix) Take 1 Tablet by mouth in the morning. prednisoLONE Acetate 1 % Ophthalmic Suspension (prednisoLONE Acetate P-F) 1 Drop in the morning and1 Drop at noon and 1 Drop in the evening and 1 Drop before bedtime. Docusate Sodium 100 MG Oral Capsule (Dulcolax Stool Softener) Take 1 Capsule by mouth 2 times a dayas needed for Constipation. Polyethylene Glycol 3350 17 GM Oral Packet (Miralax) Take 1 Packet by mouth daily as needed for Constipation. traZODone HCl 150 MG Oral Tablet (Desyrel) Take 1 Tablet by mouth at bedtime. 90 Tablet 0 Baclofen 10 MG Oral Tablet (Lioresal) Take 1 Tablet by mouth 3 times a day as needed for Pain, Moderate (to be alternated with oxycodone per [facility] instructions 06/30). 45 Tablet 0 Ondansetron 4 MG Oral Tablet Disintegrating (Zofran) Place 1 Tablet on tongue every 8 hours as needed for Nausea. dissolve on tongue. 20 Tablet 0 oxyCODONE HCl 5 MG Oral Tablet (Oxy IR) Take 1 Tablet by mouth every 4 hours as needed for Pain, Moderate. 45 Tablet 0 No current facility-administered medications for this visit. Facility-Administered Medications Ordered in Other Visits Medication Dose Route Frequency Provider Last Rate Last Admin glycopyrrolate (ROBINUL) inj Once PRN Tj Rincon CRNA 0.6 mg at 02/22/12 1103 neostigmine methylsulfate (PROSTIGMIN) 1 MG/ML inj Once PRN Tj Rincon CRNA 3 mg at 02/22/12 1103 FAMILY HISTORY: Family History Problem Relation Name Age of Onset Other (ovarian ca[Other]) Mother Thyroid Disorder Mother Cancer Mother Barby Fye Ovarian Ear Problems Mother Barby Fye Thyroid Disorder Mother Barby Fye Allergies Mother Barby Fye Heart Disorder Father triple by pass Lung Disorder Father sleep apnea Glaucoma Father B. [place] Fye Heart Disorder Father B. [place] Fye Hypertension Father B. [place] Fye Other (barber siri[Other]) Brother bilateral hip replacement Heart Disorder Grandmother (Maternal) Saba [place]neon Hypertension Grandmother (Maternal) [place] Arthritis Grandmother (Maternal) [place] Diabetes Grandmother (Maternal) [place] Heart Disorder Grandfather (Maternal) Bharath De Dios Hypertension Grandfather (Maternal) Bharath De Dios Cancer Grandmother (Paternal) [place] Fye Breast Heart Disorder Grandfather (Paternal) Go [...] the high risk obsity clinic in [facility] Pancreatitis Spinal stenosis, lumbar Spondylolisthesis SUMMARY OF/CHANGES TO PAST PSYCHIATRIC, MEDICAL, FAMILY, OR SOCIAL HISTORY: See interval history MEDICAL REVIEW OF SYSTEMS: Please see medical notes MENTAL STATUS EVALUATION: Appearance: casually dressed Muscle strength and tone: no abnormal involuntary movements noticeable Gait and Station: not assessed, patient seen via teleconference Behavior: cooperative Speech: normal, rate, tone and volume Mood: anxious Affect: type - anxious; range - full range; lability - no [...] medication management was spent on Billing code: [id number] and [id number] ANEUDY Maciel Psychiatrist, [facility] 07/15/2024 documented in this encounter Plan of Treatment Upcoming Encounters Date Type Department Care Team (Late st Contact Info) Description 07/23/2024 1:00 PM EDT Telemedicine Nutrition Services [address] [place] [address] Jasvir Johnson, RDN [facility] [place] [address] 07/28/2024 3:30 PM EDT Telemedicine Psychology, [facility] [address] [place] [address] Roly Miller, VOCATIONAL REHABILITATION ADMINISTRATOR [address] [place] [address] 08/06/2024 12:15 PM EDT [facility] [address] [place] [address] Joseph Giordano MD [address] [place] [address] 08/19/2024 1:00 PM EDT Telemedicine Medical Pain Management [facility] [address] [place] [address] Crystal Betancur CRNP [address] [place] [address] 09/16/2024 12:30 PM EDT Telemedicine Psychiatry, [facility] [address] [place] [address] Brooke Deluca CRNP [address] [place] [address] 10/07/2024 2:40 PM EDT Telemedicine Endocrinology [address] [place] [address] Daniel Franco MD [address] [place] [address] 10/15/2024 3:30 PM EDT Office Visit Neurology Nina [place] [address] [place] [address] Mariya Harding PA-C [address] [place] [id number] 10/21/2024 12:10 PM EDT [facility] [place] [facility] [address] [facility] [place] [address] Elida Lance DO [address] [facility] [place] [address] 02/03/2026 2:20 PM EST Office [facility], [place] [facility] [address] [facility] [place] [address] Yessi Morton PA-C [address] [place] [address] [place] [phone] Health Maintenance Due Date Last Done Comments Fecal Occult Blood Test 2006 Sigmoidoscopy 2006 Mammogram 08/09/2017 08/09/2016, 06/09/2015, 08/05/2014, Additional history exists Pneumococcal Vaccine: 50+ Years (3 of 3 - PCV20 or PCV21) 07/09/2021 07/09/2016, 08/21/2013 Colonoscopy 01/14/2022 01/15/2012, 01/15/2012 COVID-19 Vaccine (3 - season) 2023 12/08/2020, 11/17/2020 Albumin/Creatinine Ratio 03/21/2024 024, 02/03/2019, 09/05/2017, Additional history exists CKD PHOS USE SMARTSET 37654 10/17/2024 081 08/2023, 03/16/2022, 02/09/2021, Additional history exists GFR 12/22/2024 06/22/2024, 06/03, 06/20/2024, Additional history exists Cologuard 04/04/2025 04/04/2022, 03/05, 03/27/2022 Colorectal Cancer Screening 04/04/2025 CKD HGB USE SMARTSET 57728 06/22/202506/22, 06/21/2024, 06/20/2024, Additional history exists Depression [...] this encounter Medical Devices Implanted Type Area Accounts Payable Or Receivable Clerk Device Identifier Shelf Expiration Date Model / Serial / Lot Graft Infuse Bone Sm [id number] - [id number] Implanted:Qt y: 1 on 02/22/2012 at OR [facility] N/A: Spine Lumbar MED[employer] : NEUROLOGIC PAIN 08/01/2014 [id number] / / [id number] Screw 6x45 Poly Si [id number] - [id number] Implanted:Qt y: 2 on 02/22/2012 at OR [facility] N/A: Spine Lumbar JNJ : ETH[employer]ON [employer] [id number] / / Screw 7x35 Poly Si [id number] - [id number] Implanted:Qt y: 2 on 02/22/2012 at OR [facility] N/A: Spine Lumbar JNJ : ETHICON [employer]ATIONS [id number] / / Asif 5.5x55 Ti Prbnt [id number] - [id number] Implanted:Qt y: 2 on 02/22/2012 at OR [facility] N/A: Spine Lumbar JNJ : DEPUY SPINE [id number] / / Screw Set Sng Inner [id number] - [id number] Implanted:Qt y: 4 on 02/22/2012 at OR [facility] N/A: Spine Lumbar JNJ : DEPUY SPINE [id number] / / Cage 28x8 Leopard [id number] - [id number] Implanted:Qt y: 1 on 02/22/2012 at OR [facility] N/A: Spine Lumbar JNJ : ETHICON [employer]ARD[employer]ATIONS [id number] / / Implant Brst Mod Cls Pro 360cc - [id number] Implanted:Qt y: 1 on 11/12/2012 at OR [facility] Right: Breast MENTOR KRISSY 09/11/2017 [id number] / [id number] / [id number] Implant Brst Mod Cls Pro 360cc - [id number] Implanted:Qt y: 1 on 11/12/2012 at OR [facility] Left: Breast MENTOR KRISSY 08/12/2017 [id number] / [id number] / [id number] 4.0 X 14 Variable Self Starting Screw Implanted:Qt y: 4 on 02/05/2020 by Luis Eduardo Ross MD at OR [facility] N/A: Spine Cervical KWADWO [id number] / / Level 20mm [place] Plate Implanted:Qt y: 1 on 02/05/2020 by Luis Eduardo Ross MD at OR [facility] N/A: Spine Cervical KWADWO [id number] / / [id number] Alcutian Implanted:Qt y: 1 on 02/05/2020 by Luis Eduardo Ross MD at OR [facility] N/A: Spine Cervical KWADWO [id number] / / Description:alctuian cage 2.5cc Vitoss Bimodal Foam Pack Implanted:Qt y: 1 on 02/05/2020 by Luis Eduardo Ross MD at OR [facility] N/A: Spine Cervical KWADWO [id number] 11/29/2020 [id number] / [id number] / [id number] Sling Desara One - [id number] Implanted:Qt y: 1 on 08/31/2022 by Chico Perry MD at OR [facility] N/A: Vagina [employer] 08/10/2023 [id number] / / [id number] Bone Mtrx Vivigen Formble 10cc - [id number] - [id number] Implanted:Qt y: 1 on 06/19/2024 by Joseph Giordano MD at OR [facility] N/A: Spine Lumbar LIFENET 04/29/2025 [id number] / [id number] / [id number] Implant Graft Bone Ifact 2.5cc - [id number] Implanted:Qt y: 1 on 06/19/2024 by Joseph Giordano MD at OR [facility] Spine Lumbar [employer] [id number] 04/03/2026 700-025 / / [id number] Eit/ Plif 13mm 12 Degree 22/9 Implanted:Qt y: 1 on 06/19/2024 by Joseph Giordano MD at OR [facility] N/A: Spine Lumbar 08/31/2025 [id number] / / [id number] Duragen Plus 1x3 Dp 1013 Min5 - [id number] - [id number] Implanted:Qt y: 1 on 06/19/2024 by Joseph Giordano MD at OR [facility] N/A: Spine Lumbar [employer] KRISSY [id number] 12/01/2026 [id number] / [id number] / [id number] Screw 6x45 Poly Si [id number] - [id number] Implanted:Qt y: 2 on 06/19/2024 by Joseph Giordano MD at OR [facility] N/A: Spine Lumbar JNJ : ETH[employer]ON [employer] [id number] / / Screw 7x45 Poly Si [id number] - [id number] Implanted:Qt y: 2 on 06/19/2024 by Joseph Giordano MD at OR [facility] N/A: Spine Lumbar JNJ : ETHICON [employer]ATIONS [id number] / / Pre Lordosed Asif W Line 45mm - [id number] Implanted:Qt y: 2 on 06/19/2024 by Joseph Giordano MD at OR [facility] N/A: Spine Lumbar JNJ : DEPUY SPINE [id number] / / Screw Set Sng Inner [id number] - [id number] Implanted:Qt y: 4 on 06/19/2024 by Joseph Giordano MD at OR [facility] N/A: Spine Lumbar JNJ : ETHICON CARDIOVATIONS [id number] / / Expedium Ti Sfx 5.5 Lat A6 - [id number] Implanted:Qt y: 1 on 06/19/2024 by Joseph Giordano MD at OR [facility] N/A: Spine Lumbar JNJ : ETH[employer]ON [employer]ATIONS [id number] / / documented as of this encounter [...] and were consensually agreed upon. Care Teams Vp Outcomes Relationship Specialty Start Date End Date Elida Lance DO [address] [place] [id number] PCP - General Family Medicine 05/22/24 documented as of this encounter
--- OUTSIDE RECORDS SUMMARY | 2024-07-19 09:59 | External Medical Summary | Summary of Care ---
Author Name Unknown Organization [facility] Address [address] [place] [address] Phone [phone] Care Team Providers Care Zoning Technician Name Role Phone Elida Lance DO Primary Care Provider Reason for Visit * Reason Onset Date Comments Medication Refill 07/15/2024 Encounter Details Date Type Department Care Team (Late st Contact Info) Description 07/15/2024 Refill Orthopaedics Spine Surgery, [place] [address] [place] [address] Elham Gutierrez PA-C [address] [place] [address] Allergies Active Allergy Reactions Criticality Noted Date [...] Moderate (to be alternated with oxycodone per [facility] DC instructions 06/30). 45 Tablet 07/08/19 [...] Pain, Moderate. 45 Tablet 07/16/19 25 Active oxyCODONE HCl 5 MG Oral Tablet (Oxy IR) Take 1 Tablet by mouth every 4 hours as needed for Pain, Moderate. 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 Patient is up to date for office visits. Pending Prescriptions: Disp Refills oxyCODONE HCl 5 MG Oral Tablet (Oxy IR) 45 Tab*0 Sig: Take 1 Tablet by mouth every 4 hours as needed for Pain, Moderate. Last Visit: 07/02/2024 (in office), 12/26/2023 (telemedicine) Next Visit: 08/06/2024 If no future appointments scheduled, and last appointment is greater than a year ago, please schedule patient for a follow-up appointment Last date the medication was ordered: 07/07/2024 Pharmacy: [facility] Is this request for a controlled substance?Yes, and Urine Drug Screen was completed Urine Drug Screen: Results for orders placed [...] screening results are reflexed to confirmatory testing. *Note: Due to a large number of results and/or encounters for the requested time period, some results have not been displayed. A complete set of results can be found in Results Review. Patient Phone Numbers Labs: Lab Results Component Value Date/Time CREAT 0.8 06/22/2024 06:02 AM CREAT 1.0 02/06/2020 04:58 AM POTASSIUM 4.8 06/22/2024 06:02 AM POTASSIUM 4.2 02/06/2020 04:58 AM TSH 1.40 [...] 07/23/2024 1:00 PM EDT Telemedicine Nutrition Services [address] [place] [address] Jasvir Johnson, N [address] [place] [phone] 07/28/2024 3:30 PM EDT Telemedicine [facility] [address] [place] [address] Roly Miller, ADVISORY SOFTWARE ENGINEER [address] [place] [address] 08/06/2024 12:15 PM EDT Office Visit Orthopaedics Spine Surgery, [address] [address] Joseph Giordano MD [address] [place] [address] 08/19/2024 1:00 PM EDT Telemedicine Medical Pain Management Jamal Esquivel [address] [place] [address] Crystal Betancur CRNP [address] [place], [place] [id number] 09/16/2024 12:30 PM EDT Telemedicine Psychiatry, [place] [address] [place] [address] Brooke Deluca CRNP [address] [place] [address] 10/07/2024 2:40 PM EDT Telemedicine Endocrinology [address] [place] [address] Daniel Franco MD [address] [place] [id number] 10/15/2024 3:30 PM EDT Office Visit Neurology [facility] [place] [address] [place] [address] Mariya Harding PA-C [address] [place], [place] [phone] 10/21/2024 12:10 PM EDT [facility] [place] [facility] [address] [facility] [address] Elida Lance DO [address] [place] [address] 02/03/2026 2:20 PM EST Office Visit Dermatology, [facility] [address] [facility] [place] [address] Yessi Morton PA-C [address] [place] [address] [place] [phone] Health Maintenance Due Date Last Done Comments Fecal Occult Blood Test 2006 Sigmoidoscopy 2006 Mammogram 08/09/2017 08/09/2016, 0609/2015, 08/05/2014, Additional history exists Pneumococcal Vaccine: 50+ Years (3 of 3 - PCV20 or PCV21) 07/09/2021 07/09/2016, 08/21/2013 Colonoscopy 01/14/2022 01/15/2012, 01/15/2012 COVID-19 Vaccine ( season) 2023 12/08/2020, 11/17/2020 Albumin/Creatinine Ratio 03/21/2024 024, 02/03/2019, 09/05/2017, Additional history exists CKD PHOS USE SMARTSET 96178 10/17/202410/02, 03/16/2022, 02/09/2021, Additional history exists GFR 12/22/2024 06/22/2024, 06/03, 06/20/2024, Additional history exists Cologuard 04/04/2025 04/04/2022, 03/05, 03/27/2022 Colorectal Cancer Screening 04/04/2025 CKD HGB USE SMARTSET 40443 06/22/202506/22, 06/21/2024, 06/20/2024, Additional history exists Depression [...] 01/31/2022, Additional history exists EKG Completed 06/20/2024, 0403/2024, 08/14/2022, Additional history exists HPV (Gardasil) Vaccine [...] this encounter Medical Devices Implanted Type Area National Account Director Device Identifier Shelf Expiration Date Model / Serial / Lot Graft Infuse Bone Sm [id number] - [id number] Implanted:Qt y: 1 on 02/22/2012 at OR [facility] N/A: Spine Lumbar [employer] : NEUROLOGIC PAIN 08/01/2014 [id number] / / [id number] Screw 6x45 Poly Si [id number] - [id number] Implanted:Qt y: 2 on 02/22/2012 at OR [facility] N/A: Spine Lumbar JNJ : [employer] [id number] / / Screw 7x35 Poly Si [id number] - [id number] Implanted:Qt y: 2 on 02/22/2012 at OR [facility] N/A: Spine Lumbar JNJ : [employer] [id number] / / Asif 5.5x55 Ti Prbnt [id number] - [id number] Implanted:Qt y: 2 on 02/22/2012 at OR [facility] N/A: Spine Lumbar JNJ : DEPU[employer] SPINE [id number] / / Screw Set Sng Inner [id number] - [id number] Implanted:Qt y: 4 on 02/22/2012 at OR [facility] N/A: Spine Lumbar JNJ : DEPUY SPINE [id number] / / Cage 28x8 Leopard [id number] - [id number] Implanted:Qt y: 1 on 02/22/2012 at OR [facility] N/A: Spine Lumbar JNJ : [employer] [id number] / / Implant Brst Mod Cls Pro 360cc - [id number] Implanted:Qt y: 1 on 11/12/2012 at OR [facility] Right: Breast [employer] KR[employer]SY 09/11/2017 350-7360 / [id number] / [id number] Implant Brst Mod Cls Pro 360cc - [id number] Implanted:Qt y: 1 on 11/12/2012 at OR [facility] Left: Breast [employer] 08/12/2017 350-7360 / [id number] / [id number] 4.0 X 14 Variable Self Starting Screw Implanted:Qt y: 4 on 02/05/2020 by Luis Eduardo Ross MD at OR [facility] N/A: Spine Cervical KWADWO [id number] / / 1 Level 20mm Garretson View Plate Implanted:Qt y: 1 on 02/05/2020 by Luis Eduardo Ross MD at OR [facility] N/A: Spine Cervical KWADWO [id number] / / [id number] Alcutian Implanted:Qt y: 1 on 02/05/2020 by Luis Eduardo Ross MD at OR [facility] N/A: Spine Cervical KWADWO [id number] / / Description:alctuian cage 2.5cc Vitoss Bimodal Foam Pack Implanted:Qt y: 1 on 02/05/2020 by Luis Eduardo Ross MD at OR [facility] N/A: Spine Cervical KWADWO [id number] 11/29/2020 [id number] / [id number] / [id number] Sling Desara One - [id number] Implanted:Qt y: 1 on 08/31/2022 by Chico Perry MD at OR [facility] N/A: Vagina [employer] 08/10/2023 [id number] / / [id number] Bone Mtrx Vivigen Formble 10cc - [id number] - [id number] Implanted:Qt y: 1 on 06/19/2024 by Joseph Giordano MD at OR [facility] N/A: Spine Lumbar [employer] 04/29/2025 [id number] / [id number] / [id number] Implant Graft Bone Ifact 2.5cc - [id number] Implanted:Qt y: 1 on 06/19/2024 by Joseph Giordano MD at OR [facility] Spine Lumbar [employer] [id number] 04/03/2026 700-025 / / [id number] Eit/ Plif 13mm 12 Degree 23/11 Implanted:Qt y: 1 on 06/19/2024 by Joseph Giordano MD at OR [facility] N/A: Spine Lumbar 08/31/2025 [id number] / / [id number] Duragen Plus 1x3 Dp 1013 Min5 - [id number] - [id number] Implanted:Qt y: 1 on 06/19/2024 by Joseph Giordano MD at OR [facility] N/A: Spine Lumbar [employer] KRISSY [id number] 12/01/2026 [id number] / [id number] / [id number] Screw 6x45 Poly Si [id number] - [id number] Implanted:Qt y: 2 on 06/19/2024 by Joseph Giordano MD at OR [facility] N/A: Spine Lumbar JNJ : [employer] [id number] / / Screw 7x45 Poly Si [id number] - [id number] Implanted:Qt y: 2 on 06/19/2024 by Joseph Giordano MD at OR [facility] N/A: Spine Lumbar JNJ : [employer] [id number] / / Pre Lordosed Asif W Line 45mm - [id number] Implanted:Qt y: 2 on 06/19/2024 by Joseph Giordano MD at OR [facility] N/A: Spine Lumbar JNJ : [employer] SPINE [id number] / / Screw Set Sng Inner [id number] - [id number] Implanted:Qt y: 4 on 06/19/2024 by Joseph Giordano MD at OR [facility] N/A: Spine Lumbar JNJ : [employer] [id number] / / Expedium Ti Sfx 5.5 Lat A6 - [id number] Implanted:Qt y: 1 on 06/19/2024 by Joseph Giordano MD at OR [facility] N/A: Spine Lumbar JNJ : [employer] [id number] / / documented as of this encounter [...] and were consensually agreed upon. Care Teams Zoning Technician Relationship Specialty Start Date End Date Elida Lance DO [address] [address] PCP - General Family Medicine 05/22/24 documented as of this encounter
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
--- OUTSIDE RECORDS SUMMARY | 2024-07-19 09:59 | External Medical Summary | Summary of Care ---
Author Name Unknown Organization [facility] Address [address] [facility] [place] [address] Phone [phone] Care Team Providers Care Cash Management Coordinator Name Role Phone Elida Lance DO Primary Care Provider [phone] Reason for Visit * Reason Onset Date Comments Appointment 07/06/2024 Encounter Details Date Type Department Care Team (Late st Contact Info) Description 07/06/2024 Telephone Care Coordination and Integration [address] [facility] [place] [address] Elida Lance DO [address] [place] [id number] Appointment Allergies Active Allergy Reactions Criticality Noted Date Comments Nsaids 02/01/2020 Hx gastric bypass Other Allergy (See Comments) Rash Medium 11/27/2012 Dermabond prineo Penicillins 10/04/1999 Rash, last dose was in her 20's Has safely tolerated ancef before Sulfa Antibiotics 10/04/1999 Rash in her early 20's documented as of this encounter (statuses as of 07/08/2024) Medications MULTIVITAMINS PO CAPS Take 1 Capsule [...] 07/06/2024 Metoprolol Tartrate 25 MG Oral Tablet (Lopressor)Indic [...] medical marijuana is approved Use as directed. Act mary Dry Eye Relief Drops 0.2-0.2-1 % Ophthalmic [...] Oral Tablet Delayed Release (Protonix)Indica tions:Acid reflux Take 1 Tablet by mouth in [...] 1 5 1:37 PM EST 01/14/20 24 025 Discontin ued(Refil l) oxyCODONE HCl 5 MG Oral Tablet (Oxy IR) Take 1 Tablet by mouth every 4 hours as needed for moderate to severe pain. 45 Tablet 5 12:41 PM EDT 06/26/19 25 025 Discontin ued(Refil l) Baclofen 10 MG Oral Tablet (Lioresal) Take 1 Tablet by mouth 3 times a day as needed for Pain, Moderate (to be alternated with oxycodone per [facility] DC instructions 06/30). 025 Discontin ued(Refil l) documented as of this encounter (statuses as of 07/08/2024) Active Problems Problem Noted Date Diagnosed Date [...] disease), lumbar 11/21/19 12 [facility] [employer] Other*[id number] 06/0 11/2009 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 B12 malabsorption s/p gastric bypass 07/14/2002 Allergic rhinitis 02/12/2002 Dyslipidemia, goal LDL below 130 12/04/2001 Chronic rhinitis HTN, goal below 140/90 Spinal stenosis, lumbar Spondylolisthesis documented as of this encounter (statuses as of 07/08/2024) Resolved Problems Problem Noted Date Diagnosed Date [...] as of this encounter (statuses as of 07/08/2024) Immunizations Name Administration Dates Next Due COVID-19 mRNA, LNP-s, No Pre serve, 2-Dose Series ([employer]) 12/08/2020,11/17/2020 Pneumococcal Conjugate Vacc, 13 Valent [...] of Assessment Author No 06/19/2024 6:06 PM RAKESHT Krystle Schroeder RN * Are you blind or do you have serious difficulty seeing, even when wearing glasses? Answer Date of Assessment Author No 06/19/2024 6:06 PM EDKrystle Beckman RN * Do you have serious difficulty [...] encounter Miscellaneous Notes * Telephone Encounter - Mayra Blanchard LPN - 07/08/2024 1:03 PM EDT resched her post discharge f/u appt that was cancelled on 07/07 Thanks ! * Telephone Encounter - Eldia Lance DO - 07/08/2024 12:38 PM EDT For abnormal BAND SALVAGER ie large labia, try to get an appt here to we can better evaluate her to refer herto the right place * Telephone Encounter - Sheree Maradiaga LPN - 07/08/2024 8:19 AM EDT Please call patient and try to resched her post discharge f/u appt that was cancelled on 07/07 Thanks ! * Addendum Note - Mayra Blanchard LPN - 07/07/2024 2:30 PM EDTAddended by: MAYRA BLANCHARD on: 07/07/2024 02:30 PM Modules accepted: Orders * Telephone Encounter - Mayra Blanchard LPN - 07/07/2024 2:26 PM EDT Pt needs a general gynecology referral. Pended referral * Telephone Encounter - Elida Lance DO - 07/06/2024 1:46 PM EDT Urine testing was ordered. * Telephone Encounter - Radha Harper RN - 07/06/2024 9:52 AM EDT Patient in need of PCP hospital DC appt. Currently experiencing urinary frequency with urge incontinence. [place] text out to [facility]MCU NURSE to have [facility] bring urine specimen cup to patient and then drop specimen off atthe lab to rule out UTI. Will pend order to PCP. Please call patient to schedule hospital discharge appt. Does have transportation issues and uses [facility] transportation, so late morning or early afternoon appts are best. Dr. Perry's office- Patient in need of appt as she is c/o her labia being large and causing pain. If this TE was sent to the wrong pool, please forward to the correct pool. Thank you. Primary CM: Oscar Maradiaga [phone] documented in this encounter Plan of Treatment Upcoming Encounters Date Type Department Care Team (Late st Contact Info) Description 07/09/2024 1:00 PM EDT Telemedicine Medical Pain Management [facility] [address] [place] [address] Crystal Betancur CRNP [address] [place] [address] 07/13/2024 11:10 AM EDT Office Visit [facility] [address] [place] [id number] Elida Lance DO [address] [place] [address] 07/15/2024 2:00 PM EDT Telemedicine Psychiatry, [place] [address] [place] [id number] Brooke Deluca CRNP [address] [facility] [place] [id number] 07/23/2024 1:00 PM EDT Telemedicine Nutrition Services [address] [place] [address] Jasvir Johnson, RDN [address] [place] [address] 08/06/2024 12:15 PM EDT Office Visit Orthopaedics Spine Surgery, [place] [address] [place] [address] Joseph Giordano MD [address] [place], [place] [id number] 10/07/2024 2:40 PM EDT Telemedicine Endocrinology [facility] [place] [address] [place] [address] Daniel Franco MD [address] [place] [address] 10/15/2024 3:30 PM EDT Office Visit Neurology [facility] [address] [facility] [place] [address] Mariya Harding PA-C [address] [facility] [place] [address] 10/21/2024 12:10 PM EDT Office Visit [facility], [place] [address] [facility] [place] [address] Elida Lance DO [address] [facility] [place] [address] 02/03/2026 2:20 PM EST Office Visit Dermatology, [place] [address] [place] [address] Yessi Morton, PAEfrainC [address] [place] [address] [place] [id number] Health Maintenance Due Date Last Done Comments Fecal Occult Blood Test 2006 Sigmoidoscopy 2006 Mammogram 08/09/2017 08/09/2016, 06/0 09/2015, 08/05/2014, Additional history exists Pneumococcal Vaccine: 50+ Years (3 of 3 - PCV20 or PCV21) 07/09/2021 07/09/2016, 08/21/2013 Colonoscopy 01/14/2022 01/15/2012, 01/15/2012 COVID-19 Vaccine (3 - season) 2023 12/08/2020, 11/17/2020 Albumin/Creatinine Ratio 03/21/2024 024, 02/03/2019, 09/05/2017, Additional history exists CKD PHOS USE SMARTSET 44775 10/17/202410/02, 03/16/2022, 02/09/2021, Additional history exists GFR 12/22/2024 06/22/2024, 06/03, 06/20/2024, Additional history exists Cologuard 04/04/2025 04/04/2022, 03/05, 03/27/2022 Colorectal Cancer Screening 04/04/2025 CKD HGB USE SMARTSET 01271 06/22/202506/22, 06/21/2024, 06/20/2024, Additional history exists Depression [...] this encounter Medical Devices Implanted Type Area Tonal Regulator Device Identifier Shelf Expiration Date Model / Serial / Lot Graft Infuse Bone Sm [id number] - [id number] Implanted:Qt y: 1 on 02/22/2012 at OR [facility] N/A: Spine Lumbar [employer] : NEUROLOGIC PAIN 08/01/2014 [id number] / / [id number] Screw 6x45 Poly Si [id number] - [id number] Implanted:Qt y: 2 on 02/22/2012 at OR [facility] N/A: Spine Lumbar JNJ : [employer] [id number] / / Screw 7x35 Poly Si [id number] - [id number] Implanted:Qt y: 2 on 02/22/2012 at OR [facility] N/A: Spine Lumbar JNJ : [employer] [id number] / / Asif 5.5x55 Ti Prbnt [id number] - [id number] Implanted:Qt y: 2 on 02/22/2012 at OR [facility] N/A: Spine Lumbar JNJ : [employer] [id number] / / Screw Set Sng Inner [id number] - [id number] Implanted:Qt y: 4 on 02/22/2012 at OR [facility] N/A: Spine Lumbar JNJ : [employer] [id number] / / Cage 28x8 Leopard [id number] - [id number] Implanted:Qt y: 1 on 02/22/2012 at OR [facility] N/A: Spine Lumbar JNJ : [employer] [id number] / / Implant Brst Mod Cls Pro 360cc - [id number] Implanted:Qt y: 1 on 11/12/2012 at OR [facility] Right: Breast [employer] KRISSY 09/11/2017 [id number] / [id number] / [id number] Implant Brst Mod Cls Pro 360cc - [id number] Implanted:Qt y: 1 on 11/12/2012 at OR [facility] Left: Breast [employer] KRISSY 08/12/2017 [id number] / [id number] / [id number] 4.0 X 14 Variable Self Starting Screw Implanted:Qt y: 4 on 02/05/2020 by Luis Eduardo Ross MD at OR [facility] N/A: Spine Cervical KWADWO [id number] / / 1 Level 20mm [place] View Plate Implanted:Qt y: 1 on 02/05/2020 by Luis Eduardo Ross MD at OR [facility] N/A: Spine Cervical KWADWO [id number] / / [id number] ree Alcutian Implanted:Qt y: 1 on 02/05/2020 by Luis Eduardo Ross MD at OR [facility] N/A: Spine Cervical KWADWO [id number] / / Description:alctuian cage 2.5cc Vitoss Bimodal Foam Pack Implanted:Qt y: 1 on 02/05/2020 by Luis Eduardo Ross MD at OR [facility] N/A: Spine Cervical KWADWO [id number] 11/29/2020 [id number] / [id number] / [id number] Sling Desara One - [id number] Implanted:Qt y: 1 on 08/31/2022 by Chico Perry MD at OR [facility] N/A: Vagina [employer] 08/10/2023 [id number] / / [id number] Bone Mtrx Vivigen Formble 10cc - [id number] - [id number] Implanted:Qt y: 1 on 06/19/2024 by Joseph Giordano MD at OR [facility] N/A: Spine Lumbar [employer] 04/29/2025 [id number] / [id number] / [id number] Implant Graft Bone Ifact 2.5cc - [id number] Implanted:Qt y: 1 on 06/19/2024 by Joseph Giordano MD at OR [facility] Spine Lumbar [employer] [id number] 04/03/2026 700-025 / / [id number] Eit/ Plif 13mm 12 Degree 22/ Implanted:Qt y: 1 on 06/19/2024 by Joseph Giordano MD at OR [facility] N/A: Spine Lumbar 08/31/2025 [id number] / / [id number] Duragen Plus 1x3 Dp 1013 Min5 - [id number] - [id number] Implanted:Qt y: 1 on 06/19/2024 by Joseph Giordano MD at OR [facility] N/A: Spine Lumbar [employer] KRISSY [id number] 12/01/2026 [id number] / [id number] / [id number] Screw 6x45 Poly Si [id number] - [id number] Implanted:Qt y: 2 on 06/19/2024 by Joseph Giordano MD at OR [facility] N/A: Spine Lumbar JNJ : [employer] [id number] / / Screw 7x45 Poly Si [id number] - [id number] Implanted:Qt y: 2 on 06/19/2024 by Joseph Giordano MD at OR [facility] N/A: Spine Lumbar JNJ : [employer] [id number] / / Pre Lordosed Asif W Line 45mm - [id number] Implanted:Qt y: 2 on 06/19/2024 by Joseph Giordano MD at OR [facility] N/A: Spine Lumbar JNJ : [employer] SPINE [id number] / / Screw Set Sng Inner [id number] - [id number] Implanted:Qt y: 4 on 06/19/2024 by Joseph Giordano MD at OR [facility] N/A: Spine Lumbar JNJ : [employer] [id number] / / Expedium Ti Sfx 5.5 Lat A6 - [id number] Implanted:Qt y: 1 on 06/19/2024 by Joseph Giordano MD at OR [facility] N/A: Spine Lumbar JNJ : [employer] [id number] / / documented as of this encounter Visit Diagnoses Diagnosis Frequency of urination- Primary Urinary frequency documented in this encounter Advance Directives * [...] and were consensually agreed upon. Care Teams Cash Management Coordinator Relationship Specialty Start Date End Date Elida Lance DO [address] [place] [address] PCP - General Family Medicine 05/22/24 documented as of this encounter
--- OUTSIDE RECORDS SUMMARY | 2024-07-19 09:59 | External Medical Summary | Summary of Care ---
Author Name Unknown Organization [facility] Address [address] [facility] [place] [address] Phone [phone] Care Team Providers Care Equipment Maintenance Technician Name Role Phone Elida Lance DO Primary Care Provider [phone] Reason for Visit * Reason Onset Date Comments Hospital Follow-Up Post surgery Hospital Follow-Up 07/13/2024 Encounter Details Date Type Department Care Team (Late st Contact Info) Description 07/13/2024 11:10 AM EDT [facility] Visit [facility] [address] [phone] Elida Lance DO [address] [id number] Nausea and vomiting, unspecified vomiting type*; Hospital discharge follow-up Allergies Active Allergy Reactions Criticality Noted Date Comments Nsaids 02/01/2020 Hx gastric bypass Other Allergy (See Comments) Rash Medium 11/27/2012 Dermabond prineo Penicillins 10/04/1999 Rash, last dose was in her 20's Has safely tolerated ancef before Sulfa Antibiotics 10/04/1999 Rash in her early 20's documented as of this encounter (statuses as of 07/13/2024) Medications MULTIVITAMINS PO CAPS Take 1 Capsule [...] (to be alternated with oxycodone per [facility] instructions 06/30). 45 Tablet 07/08/19 25 Active oxyCODONE HCl 5 MG Oral Tablet (Oxy IR) Take 1 Tablet by mouth every 4 hours as needed for Pain, Moderate. 45 Tablet 07/08/19 25 Active Ondansetron 4 MG Oral Tablet Disintegrating (Zofran)Indication s:Nausea and vomiting, unspecified vomiting type Place 1 Tablet on tongue every 8 hours as needed for Nausea. dissolve on tongue. 20 Tablet 07/14/19 25 Active Ondansetron 4 MG Oral Tablet Disintegrating (Zofran) Place 1 Tablet on tongue every 8 hours as needed for Nausea. dissolve on tongue. 20 Tablet 07/08/19 25 025 Discontin ued(Refil l) documented as of this encounter (statuses as of 07/13/2024) Active Problems Problem Noted Date Diagnosed Date Major depressive disorder, recurrent, in partial remission 12/27/2021 Generalized anxiety disorder 12/27/2021 S/P cervical spinal fusion 02/05/2020 DDD (degenerative disc disease), cervical 2017 Major depressive disorder, recurrent, moderate 0 06/14/2017 Memory changes 01/01/2017 Benign hypertension with CKD (chronic kidney disease) stage III 12/26/2016 Controlled substance agreement signed 04/08/2015 DDD (degenerative disc disease), lumbar 11/21/19 12 SURPRISE Confirmation Research Other*[id number] /11/2009 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 B12 malabsorption s/p gastric bypass 07/14/2002 Allergic rhinitis 02/12/2002 Dyslipidemia, goal LDL below 130 12/04/2001 Chronic rhinitis HTN, goal below 140/90 Spinal stenosis, lumbar Spondylolisthesis documented as of this encounter (statuses as of 07/13/2024) Resolved Problems Problem Noted Date Diagnosed Date [...] as of this encounter (statuses as of 07/13/2024) Immunizations Name Administration Dates Next Due COVID-19 [...] Sign Reading Time Taken Comments Blood Pressure 127/87 07/13/2024 11:03 AM EDT Pulse 77 07/13/2024 11:03 AM EDT Temperature 36.4 °C (97.6 °F) 07/13/2024 1 1:03 AM EDT Respiratory Rate 18 07/13/2024 11:0 3 AM EDT Oxygen Saturation 97% 07/13/2024 11: 03 AM EDT Inhaled Oxygen Concentration - - Weight 52.1 kg (114 lb 12.8 oz) 025 11:03 AM EDT Height 153.7 cm (5' 0.5") 07/13/2024 11 :03 AM EDT Body Mass Index 22.05 07/13/2024 11:03 AM EDT documented in this encounter Functional [...] encounter Progress Notes * Elida Lance, - 07/13/2024 11:36 AM EDT Images from the original note were not included. Subjective Martha Lawson is a 64 year old female that presents for Hospital Follow-Up (Post surgery) History of Present Illness Martha Lawson is a 64 year old female who presents for follow-up post lumbar spine surgery with complications of nausea and pain management issues. She underwent a laminectomy at L4-L5 on June 19, 2024. In [place]. Postoperatively, she has experienced significant complications including nausea and vomiting, leading to multiple emergency room visits due to elevated blood pressure and inability to retain oral medications. The pain initiates a cycle of nausea and vomiting, exacerbating her condition. She is currently prescribed oxycodone and baclofen for pain management but has difficulty keeping oral medications down due to nausea. She takes oxycodone every four hours and has attempted to extend the interval to five hours. She also uses Zofran for nausea, taking it three times a day, but has been trying to extend the interval to nine hours. She reports hip pain, which she attributes to prolonged periods of lying on her side due to discomfort. She uses a U-shaped pillow to maintain position while sleeping. The hip pain feels bruised, though there is no visible bruising. No recent falls. She has a history of chronic nausea, which was stable prior to her surgery. She has been seen by gastroenterology multiple times in the past. She has lost weight since her surgery, dropping from 123 pounds to 114 pounds. She is receiving physical therapy at home once a week but they have only been out to her home once.and is not currently driving, relying on her son for transportation. She has difficulty accessing outpatient physical therapy due to transportation issues. She recently completed a course of Keflex for a urinary tract infection, with symptoms now resolved. No current dysuria or incontinence. She experiences altered taste, with sweet and sour foods tasting amplified, affecting her ability to consume certain medications like Miralax. She reports difficulty with bowel movements but has had some improvement with stool softeners. She has experienced numbness in her right toes, which was present before surgery and has since progressed upward. The sensation is staci to a compression wrap on her leg. She has tried various medications for chronic pain, including gabapentin and Lyrica, but experienced adverse effects. She has had three ER visits since her surgery, two at [facility] and one at [facility], primarily due to nausea and pain management issues. Her blood pressure reached 220/123 during one of these episodes. Objective BP 127/87 | Pulse 77 | Temp 97.6 °F (36.4 °C) (Tympanic) | Resp 18 | Ht 5' 0.5" (1.537 m) | Wt 114 lb 12.8 oz (52.1 kg) | LMP 03/18/2007 | SpO2 97% | BMI 22.05 kg/m² | BSA 1.49 m² Physical Exam Physical Exam Constitutional: Appearance: Normal appearance. Eyes: Pupils: Pupils are equal, round, and reactive to light. Cardiovascular: Rate and Rhythm: Normal rate and regular rhythm. Pulmonary: Effort: Pulmonary effort is normal. Breath sounds: Normal breath sounds. Abdominal: General: Abdomen is flat. Bowel sounds are normal. Palpations: Abdomen is soft. Skin: General: Skin is warm. Neurological: General: No focal deficit present. Mental Status: She is alert and oriented to person, place, and time. Mental status is at baseline. Results LABS Urinalysis: Positive for urinary tract infection Assessment and Plan Assessment & Plan Postoperative nausea and vomiting Persistent nausea and vomiting post-lumbar spine surgery, exacerbated by pain, leading to hospital readmissions. Managed with Zofran; metoclopramide as alternative. - Send Zofran prescription to pharmacy. - Consider metoclopramide if Zofran is not tolerated. - Consult spine surgeon regarding pain management options, including potential use of a pain patch under observation. Postoperative pain management Pain management complicated by nausea and vomiting, hindering oral medication intake. Current regimen includes oxycodone and baclofen. Pain exacerbates nausea, elevating blood pressure and causing hospital visits. - Contact spine surgeon for oxycodone prescription renewal. - Consider alternative pain management strategies, including long-acting medications or a pain patch under observation. - Encourage increased physical therapy to prevent muscular atrophy and improve mobility. Hypertension Hypertension exacerbated by postoperative pain and nausea, causing elevated blood pressure episodes. Weight loss Significant weight loss from 123 lbs to 114 lbs since surgery, likely due to postoperative nausea and vomiting affecting nutritional intake. Urinary tract infection (resolved) Wrap-Up I spent a total of 20-29 minutes (exact time 25 mins) on the date of service in preparation, delivery, and documentation of the care provided to Martha Lawson excluding any time spent in the performance of separately billed services. Text in this note was generated using an ambient documentation service. I discussed the use of a device to record and summarize our discussion today. All persons present during the encounter consented to its use. documented in this encounter Nursing Notes * Trang Jack LPN - 07/13/2024 10:57 AM EDT The patient has been properly identified by confirmation of name and date of . Chief Complaint Patient presents with Hospital Follow-Up Post surgery Patient reports she is still losing weight, still very nauseous. Is almost out of her nausea medication documented in this encounter Plan of Treatment Upcoming Encounters Date Type Department Care Team (Late st Contact Info) Description 07/15/2024 2:00 PM EDT Telemedicine Psychiatry, [address] [place] [phone] Brooke Deluca CRNP [address] [place] [address] 07/23/2024 1:00 PM EDT Telemedicine Nutrition Services [place] [address] [place] [address] Jasvir Johnson, RDN [address] [place] [address] 07/28/2024 3:30 PM EDT Telemedicine Psychology, [place] [address] [place] [address] Roly Miller, DICE TABLE PERSON [address] [place] [address] 08/06/2024 12:15 PM EDT Office Visit Orthopaedics Spine Surgery, [place] [address] [place] [address] Joseph Giordano MD [address] [place] [address] 08/19/2024 1:00 PM EDT Telemedicine Medical Pain Management [facility] [address] [place] [address] Crystal Betancur CRNP [address] [place], [place] [id number] 10/07/2024 2:40 PM EDT Telemedicine Endocrinology [address] [place] [address] Daniel Franco MD [address] [place] [address] 10/15/2024 3:30 PM EDT Office Visit Neurology [facility] [place] [address] [place] [address] Mariya Harding, PAEfrainC [address] [facility] [address] [place] [address] 10/21/2024 12:10 PM EDT Office Visit Family Practice, [place] [address] [address] Elida Lance DO [address] [place] [address] 02/03/2026 2:20 PM EST Office Visit Dermatology, [place] [address] [place] [address] Yessi Morton PA-C [address] [place] [address] [place] [address] Health Maintenance Due Date Last Done Comments Fecal Occult Blood Test 2006 Sigmoidoscopy 2006 Mammogram 08/09/2017 08/09/2016, 09/2015, 08/05/2014, Additional history exists Pneumococcal Vaccine: 50+ Years (3 of 3 - PCV20 or PCV21) 07/09/2021 07/09/2016, 08/21/2013 Colonoscopy 01/14/2022 01/15/2012, 01/15/2012 COVID-19 Vaccine (3 - season) 2023 12/08/2020, 11/17/2020 Albumin/Creatinine Ratio 03/21/2024 024, 02/03/2019, 09/05/2017, Additional history exists CKD PHOS USE SMARTSET 66270 10/17/202410/02, 03/16/2022, 02/09/2021, Additional history exists GFR 12/22/2024 06/22/2024, 06/03, 06/20/2024, Additional history exists Cologuard 04/04/2025 04/04/2022, 03/05, 03/27/2022 Colorectal Cancer Screening 04/04/2025 CKD HGB USE SMARTSET 95172 06/22/202506/22, 06/21/2024, 06/20/2024, Additional history exists Depression [...] this encounter Medical Devices Implanted Type Area Stage Electrician Helper Device Identifier Shelf Expiration Date Model / Serial / Lot Graft Infuse Bone Sm [id number] - [id number] Implanted:Qt y: 1 on 02/22/2012 at OR [facility] N/A: Spine Lumbar [employer] : NEUROLOGIC PAIN 08/01/2014 [id number] / / [id number] Screw 6x45 Poly Si [id number] - [id number] Implanted:Qt y: 2 on 02/22/2012 at OR [facility] N/A: Spine Lumbar JNJ : [employer] [id number] / / Screw 7x35 Poly Si [id number] - [id number] Implanted:Qt y: 2 on 02/22/2012 at OR [facility] N/A: Spine Lumbar JNJ : ETH[employer]ON [employer]ATIONS [id number] / / Asif 5.5x55 Ti Prbnt [id number] - [id number] Implanted:Qt y: 2 on 02/22/2012 at OR [facility] N/A: Spine Lumbar JNJ : DEPUY SPINE [id number] / / Screw Set Sng Inner [id number] - [id number] Implanted:Qt y: 4 on 02/22/2012 at OR [facility] N/A: Spine Lumbar JNJ : DEPUY SPINE [id number] / / Cage 28x8 Leopard [id number] - [id number] Implanted:Qt y: 1 on 02/22/2012 at OR [facility] N/A: Spine Lumbar JNJ : ETH[employer]ON [employer]ATIONS [id number] / / Implant Brst Mod Cls Pro 360cc - [id number] Implanted:Qt y: 1 on 11/12/2012 at OR [facility] Right: Breast MENTOR KRISSY 09/11/2017 350-7360 / [id number] / [id number] Implant Brst Mod Cls Pro 360cc - [id number] Implanted:Qt y: 1 on 11/12/2012 at OR [facility] Left: Breast [employer] KRISSY 08/12/2017 350-7360 / [id number] / [id number] 4.0 X 14 Variable Self Starting Screw Implanted:Qt y: 4 on 02/05/2020 by Luis Eduardo Ross MD at OR [facility] N/A: Spine Cervical KWADWO [id number] / / 1 Level 20mm [place] Plate Implanted:Qt y: 1 on 02/05/2020 by Luis Eduardo Ross MD at OR [facility] N/A: Spine Cervical KWADWO [id number] / / [id number] Alcutian Implanted:Qt y: 1 on 02/05/2020 by Luis Eduardo Ross MD at OR [facility] N/A: Spine Cervical KWADWO [id number] / / Description:alctuian cage 2.5cc Vitoss Bimodal Foam Pack Implanted:Qt y: 1 on 02/05/2020 by Luis Eduardo Ross MD at OR [facility] N/A: Spine Cervical KWADWO [id number] 11/29/2020 3821-1327 / [id number] / [id number] Rick Donnelly One - [id number] Implanted:Qt y: 1 on 08/31/2022 by Chico Perry MD at OR [facility] N/A: Vagina [employer] 08/10/2023 [id number] / / [id number] Bone Mtrx Vivigen Formble 10cc - [id number] - [id number] Implanted:Qt y: 1 on 06/19/2024 by Joseph Giordano MD at OR [facility] N/A: Spine Lumbar L[employer] 04/29/2025 [id number] / [id number] / [id number] Implant Graft Bone Ifact 2.5cc - [id number] Implanted:Qt y: 1 on 06/19/2024 by Joseph Giordano MD at OR [facility] Spine Lumbar [employer] [id number] 04/03/2026 700-025 / / [id number] Eit/ Plif 13mm 12 Degree 23/11 Implanted:Qt y: 1 on 06/19/2024 by Joseph Giordano MD at OR [facility] N/A: Spine Lumbar 08/31/2025 [id number] / / [id number] Duragen Plus 1x3 Dp 1013 Min5 - [id number] - [id number] Implanted:Qt y: 1 on 06/19/2024 by Joseph Giordano MD at OR [facility] N/A: Spine Lumbar [employer] KRISSY [id number] 12/01/2026 [id number] / [id number] / [id number] Screw 6x45 Poly Si [id number] - [id number] Implanted:Qt y: 2 on 06/19/2024 by Joseph Giordano MD at OR [facility] N/A: Spine Lumbar JNJ : ETH[employer] [id number] / / Screw 7x45 Poly Si [id number] - [id number] Implanted:Qt y: 2 on 06/19/2024 by Joseph Giordano MD at OR [facility] N/A: Spine Lumbar JNJ : [employer]ON [employer] [id number] / / Pre Lordosed Asif W Line 45mm - [id number] Implanted:Qt y: 2 on 06/19/2024 by Joseph Giordano MD at OR [facility] N/A: Spine Lumbar JNJ : DEPUY SPINE [id number] / / Screw Set Sng Inner [id number] - [id number] Implanted:Qt y: 4 on 06/19/2024 by Joseph Giordano MD at OR [facility] N/A: Spine Lumbar JNJ : [employer] [id number] / / Expedium Ti Sfx 5.5 Lat A6 - [id number] Implanted:Qt y: 1 on 06/19/2024 by Joseph Giordano MD at OR [facility] N/A: Spine Lumbar JNJ : [employer]ON [employer]ATIONS [id number] / / documented as of this encounter Visit Diagnoses Diagnosis Nausea and vomiting, unspecified vomiting type- Primary Hospital discharge follow-up Other follow-up examination documented in this encounter Advance Directives * [...] and were consensually agreed upon. Care Teams Equipment Maintenance Technician Relationship Specialty Start Date End Date Elida Lance DO [address] [phone] PCP - General Family Medicine 05/22/24 documented as of this encounter
--- OUTSIDE RECORDS SUMMARY | 2024-07-19 09:59 | External Medical Summary | Summary of Care ---
Author Name Unknown Organization [facility] Address [address] [place] [address] Phone [phone] Care Team Providers Care Transportation Planning Engineer Name Role Phone Elida Lance DO Primary Care Provider [phone] Encounter Details Date Type Department Care Team (Late st Contact Info) Description 07/13/2024 1:30 PM EDT Scheduled Telephone Care Coordination and Integration [address] [place] [address] Emily Chang, Community Health Principal Accounts Clerk [address], [place] [id number] Allergies Active Allergy Reactions Criticality Noted Date [...] on tongue. 20 Tablet 07/14/19 25 Active documented as of this encounter [...] DDD (degenerative disc disease), lumbar 11/21/19 12 [place] Confirmation Research Other*[id number] 11/2009 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 B12 malabsorption [...] mRNA, LNP-s, No Pre serve, 2-Dose Series ([employer]) 12/08/2020,11/17/2020 Pneumococcal Conjugate Vacc, 13 Valent (Prevnar) [...] documented in this encounter Progress Notes * Emily Chang, Community Health Principal Accounts Clerk - 07/13/2024 3:01 PM EDT Telemedicine visit: No Community Health Worker (CHW) documentation: This CHW placed #1 f/u PC to patient per CM's request Patient is still having dry heaves and nausea. She was to see her PCP today for hospital discharge f/u. Is taking Zofran for the nausea. Patient reported that she is now having numbness in her right leg and by the end of the day her right leg is totally numb and she is limbing when walking. Left leg foot is now numb all the time since surgery. Patient is finishing out antibiotic tomorrow. Frequency is much better and no UTI symptoms. This CHW reviewed red flags with patient. Patient had a smallBM earlier today. Continues to use Colace, is having bowel sounds and gas. This CHW confirmed CM's contact info with patient and encouraged patient to reach out to Cm with any concerns or questions and this CHW will follow up patient next week. Emily Chang- Community Health Worker 1 Support Services/[facility] Sulf[employer] Plan [email or web address] documented in this encounter Plan of Treatment Upcoming Encounters Date Type Department Care Team (Late st Contact Info) Description 07/15/2024 2:00 PM EDT Telemedicine Psychiatry, [place] [address] [place] [address] Brooke Deluca CRNP [address] [place] [address] 07/23/2024 1:00 PM EDT Telemedicine Nutrition Services [address] [place] [address] Jasvir Johnson, RDN [facility] [facility] [address] [place] [address] 07/28/2024 3:30 PM EDT Telemedicine Psychology, [place] [address] [place] [address] Roly Miller, MANAGER LANGUAGE [address] [place] [address] 08/06/2024 12:15 PM EDT Office Visit Orthopaedics Spine Surgery, [place] [address] [place] [address] Joseph Giordano MD [address] [place] [address] 08/19/2024 1:00 PM EDT Telemedicine Medical Pain Management [place], [place] [address] [place] [address] Crystal Betancur CRNP [address] [place] [address] 10/07/2024 2:40 PM EDT Telemedicine Endocrinology [place] [address] [place] [address] [address] Daniel Franco MD [address] [place] [address] 10/15/2024 3:30 PM EDT Office Visit Neurology [facility] [address] [place] [address] Mariya Harding PA-C [address] [place] [id number] 10/21/2024 12:10 PM EDT Office Visit Family Practice, [place] [address] [facility] [place] [address] lEida Lance DO [address] [facility] [place] [address] 02/03/2026 2:20 PM EST Office Visit Dermatology, [place] [address] [facility] [place] [address] Yessi Morton PA-C [address] [place] [address] [place] [address] Health Maintenance Due Date [...] Additional history exists CKD PHOS USE SMARTSET 22262 10/17/202410/02, 03/16/2022, 02/09/2021, Additional history exists GFR 12/22/2024 06/22/2024, 06/03, 06/20/2024, Additional history exists Cologuard 04/04/2025 04/04/2022, 03/05, 03/27/2022 Colorectal Cancer Screening 04/04/2025 CKD HGB USE SMARTSET 01247 06/22/202506/22, 06/21/2024, 06/20/2024, Additional history exists Depression [...] this encounter Medical Devices Implanted Type Area Geological Drafter Device Identifier Shelf Expiration Date Model / Serial / Lot Graft Infuse Bone Sm [id number] - [id number] Implanted:Qt y: 1 on 02/22/2012 at OR [facility] N/A: Spine Lumbar MEDTRONIC : NEUROLOGIC PAIN 08/01/2014 [id number] / / [id number] Screw 6x45 Poly Si [id number] - [id number] Implanted:Qt y: 2 on 02/22/2012 at OR [facility] N/A: Spine Lumbar JNJ : ETHICON CARDIOVATIONS [id number] / / Screw 7x35 Poly Si [id number] - [id number] Implanted:Qt y: 2 on 02/22/2012 at OR [facility] N/A: Spine Lumbar JNJ : ETHICON CARDIOVATIONS [id number] / / Asif 5.5x55 Ti Prbnt [id number] - [id number] Implanted:Qt y: 2 on 02/22/2012 at OR [facility] N/A: Spine Lumbar JNJ : DEPUY SPINE [id number] / / Screw Set Sng Inner [id number] - [id number] Implanted:Qt y: 4 on 02/22/2012 at OR [facility] N/A: Spine Lumbar JNJ : DEPUY SPINE [id number] / / Cage 28x8 Leopard [id number] - [id number] Implanted:Qt y: 1 on 02/22/2012 at OR [facility] N/A: Spine Lumbar JNJ : ETHICON CARDIOVATIONS [id number] / / Implant Brst Mod Cls Pro 360cc - [id number] Implanted:Qt y: 1 on 11/12/2012 at OR [facility] Right: Breast MENTOR KRISSY 09/11/[address] [place] [address] / [id number] / [id number] Implant Brst Mod Cls Pro 360cc - [id number] Implanted:Qt y: 1 on 11/12/2012 at OR [facility] Left: Breast MENTOR KRISSY 08/12/2017 [facility]7360 / [id number] / [id number] 4.0 X 14 Variable Self Starting Screw Implanted:Qt y: 4 on 02/05/2020 by Luis Eduardo Ross MD at OR [facility] N/A: Spine Cervical KWADWO [id number] / / 1 Level 20mm [place] Plate Implanted:Qt y: 1 on 02/05/2020 by Luis Eduardo Ross MD at OR [facility] [place] N/A: Spine Cervical KWADWO [id number] / / [id number] Alcutian Implanted:Qt y: 1 on 02/05/2020 by Luis Eduardo Ross MD at OR [facility] [place] N/A: Spine Cervical KWADWO [id number] / / Description:alctuian cage 2.5cc Vitoss Bimodal Foam Pack Implanted:Qt y: 1 on 02/05/2020 by Luis Eduardo Ross MD at OR [facility] [place] N/A: Spine Cervical KWADWO [id number] 11/29/2020 6068-8343 / [id number] / [id number] Sling Desara One - [id number] Implanted:Qt y: 1 on 08/31/2022 by Chico Perry MD at OR [facility] N/A: Vagina [employer] 08/10/2023 [id number]-[id number] / / [id number] Bone Mtrx Vivigen Formble 10cc - [id number] - [id number] Implanted:Qt y: 1 on 06/19/2024 by Joseph Giordano MD at OR [facility] N/A: Spine Lumbar LIFENET 04/29/2025 BL-1600-003 / [id number] / [id number] Implant Graft Bone Ifact 2.5cc - [id number] Implanted:Qt y: 1 on 06/19/2024 by Joseph Giordano MD at OR [facility] Spine Lumbar [employer] [id number] 04/03/2026 700-025 / / [id number] Eit/ Plif 13mm 12 Degree 22/ Implanted:Qt y: 1 on 06/19/2024 by Joseph Giordano MD at OR [facility] N/A: Spine Lumbar 08/31/2025 [id number] / / [id number] Duragen Plus 1x3 Dp 1013 Min5 - [id number] - [id number] Implanted:Qt y: 1 on 06/19/2024 by Joseph Giordano MD at OR [facility] N/A: Spine Lumbar [employer] KRISSY [id number] 12/01/2026 RV2335 / [id number] / [id number] Screw 6x45 Poly Si [id number] - [id number] Implanted:Qt y: 2 on 06/19/2024 by Joseph Giordano MD at OR [facility] N/A: Spine Lumbar JNJ : ETHICON CARDIOVATIONS [id number] / / Screw 7x45 Poly Si [id number] - [id number] Implanted:Qt y: 2 on 06/19/2024 by Joseph Giordano MD at OR [facility] N/A: Spine Lumbar JNJ : ETHICON CARDIOVATIONS [id number] / / Pre Lordosed Asif W Line 45mm - [id number] Implanted:Qt y: 2 on 06/19/2024 by Joseph Giordano MD at OR [facility] N/A: Spine Lumbar JNJ : DEPUY SPINE [id number] / / Screw Set Sng Inner [id number] - [id number] Implanted:Qt y: 4 on 06/19/2024 by Joseph Giordano MD at OR [facility] N/A: Spine Lumbar JNJ : ETHICON CARDIOVATIONS [id number] / / Expedium Ti Sfx 5.5 Lat A6 - [id number] Implanted:Qt y: 1 on 06/19/2024 by Joseph Giordano MD at OR [facility] N/A: Spine Lumbar JNJ : ETHICON CARDIOVATIONS [id number] / / documented as of this encounter [...] and were consensually agreed upon. Care Teams Transportation Planning Engineer Relationship Specialty Start Date End Date Elida Lance DO [address] [place] [address] PCP - General Family Medicine 05/22/24 documented as of this encounter
--- OUTSIDE RECORDS SUMMARY | 2024-07-19 09:59 | External Medical Summary | Summary of Care ---
Author Name Unknown Organization [facility] Address [address] [facility] [place] [address] Phone [phone] Care Team Providers Care Assistant Casino Shift Manager Name Role Phone Elida Lance DO Primary Care Provider Reason for Visit * Reason Onset Date Comments Advice 07/15/2024 Encounter Details Date Type Department Care Team (Late st Contact Info) Description 07/15/2024 Telephone [facility], [place] [address] [place] [address] Elida Lance DO [address] [place] [address] Advice Allergies Active Allergy Reactions Criticality Noted Date Comments Nsaids 02/01/2020 Hx gastric bypass Other Allergy (See Comments) Rash Medium 11/27/2012 Dermabond prineo Penicillins 10/04/1999 Rash, last dose was in her 20's Has safely tolerated ancef before Sulfa Antibiotics 10/04/1999 Rash in her early 20's documented as of this encounter (statuses as of 07/16/2024) Medications MULTIVITAMINS PO CAPS Take 1 Capsule [...] Moderate (to be alternated with oxycodone per [facility] DC instructions 06/30). 45 Tablet 07/08/19 25 [...] as of this encounter (statuses as of 07/16/2024) Active Problems Problem Noted Date Diagnosed Date [...] disease), lumbar 11/21/19 12 [place] Confirmation Research Other*[id number] 06/11/2009 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 B12 malabsorption s/p gastric bypass 07/14/2002 Allergic rhinitis 02/12/2002 Dyslipidemia, goal LDL below 130 12/04/2001 Chronic rhinitis HTN, goal below 140/90 Spinal stenosis, lumbar Spondylolisthesis documented as of this encounter (statuses as of 07/16/2024) Resolved Problems Problem Noted Date Diagnosed Date [...] as of this encounter (statuses as of 07/16/2024) Immunizations Name Administration Dates Next Due COVID-19 [...] encounter Miscellaneous Notes * Telephone Encounter - Carmen Cruz LPN - 07/15/2024 12:56 PM EDT Thomas calling from [facility]. Asking about patients medication. Feels patient is not feeling well due to being out of pain medicine. Informed oxycodone was sent today. Patient had zofran ordered from 07/13 Verbalized understanding. * Telephone Encounter - Alison Carrero OSA - 07/15/2024 10:21 AM EDT Reason for patient's call: Home Health asking for nurse. Pt is stating that she ran out of pain meds and is dry heaving. Not eating well. Feels it is from running out of meds. Please call Thomas. documented in this encounter Plan of Treatment Upcoming Encounters Date Type Department Care Team (Late st Contact Info) Description 07/23/2024 1:00 PM EDT Telemedicine Nutrition Services [address] [place] [address] Jasvir Johnson, RDN [address] [place] [address] [place] [address] 07/28/2024 3:30 PM EDT Telemedicine [facility] [address] [place] [address] Roly Miller, [facility] [address] [place] [address] 08/06/2024 12:15 PM EDT Office Visit Orthopaedics Spine Surgery, [place] [address] [place] [phone] Joseph Giordano MD [address] [place], [place] [address] 08/19/2024 1:00 PM EDT Telemedicine Medical Pain Management [facility] [address] [place], [place] [phone] Crystal Betancur CRNP [address] [place] [id number] 09/16/2024 12:30 PM EDT Telemedicine Psychiatry, [place] [address] [facility] [place] [phone] Brooke Deluca CRNP [address] [facility] [place] [address] 10/07/2024 2:40 PM EDT Telemedicine Endocrinology [address] [place] [address] Daniel Franco MD [address] [place] [address] 10/15/2024 3:30 PM EDT Office Visit Neurology [facility] [address] [place] [address] Mariya Harding PA-C [address] [facility] [place] [address] 10/21/2024 12:10 PM EDT [facility] [address] [facility] [place] [address] Elida Lance DO [address] [place] [address] 02/03/2026 2:20 PM EST [facility] [address] [facility] [place] [address] Yessi Morton PA-C [address] [place] [address] [place] [id number] Health Maintenance Due Date Last Done Comments Fecal Occult Blood Test 2006 Sigmoidoscopy 2006 Mammogram 08/09/2017 08/09/2016, 09/2015, 08/05/2014, Additional history exists Pneumococcal Vaccine: 50+ Years (3 of 3 - PCV20 or PCV21) 07/09/2021 07/09/2016, 08/21/2013 Colonoscopy 01/14/2022 01/15/2012, 01/15/2012 COVID-19 Vaccine (3 - season) 2023 12/08/2020, 11/17/2020 Albumin/Creatinine Ratio 03/21/2024 024, 02/03/2019, 09/05/2017, Additional history exists CKD PHOS USE SMARTSET 20504 10/17/202410/02, 03/16/2022, 02/09/2021, Additional history exists GFR 12/22/2024 06/22/2024, 06/03, 06/20/2024, Additional history exists Cologuard 04/04/2025 04/04/2022, 03/05, 03/27/2022 Colorectal Cancer Screening 04/04/2025 CKD HGB USE SMARTSET 30699 06/22/202506/22, 06/21/2024, 06/20/2024, Additional history exists Depression [...] this encounter Medical Devices Implanted Type Area Electrophonic Engineer Device Identifier Shelf Expiration Date Model / Serial / Lot Graft Infuse Bone Sm [id number] - [id number] Implanted:Qt y: 1 on 02/22/2012 at OR [facility] N/A: Spine Lumbar [employer] : NEUROLOGIC PAIN 08/01/2014 [id number] / / [id number] Screw 6x45 Poly Si [id number] - [id number] Implanted:Qt y: 2 on 02/22/2012 at OR [facility] N/A: Spine Lumbar JNJ : ETHICON CARDIOVATIONS [id number] / / Screw 7x35 Poly Si [id number] - [id number] Implanted:Qt y: 2 on 02/22/2012 at OR [facility] N/A: Spine Lumbar JNJ : ETHICON CARDIOVATIONS [id number] / / Asif 5.5x55 Ti Prbnt [id number] - [id number] Implanted:Qt y: 2 on 02/22/2012 at OR [facility] N/A: Spine Lumbar JNJ : DEPUY SPINE [id number] / / Screw Set Sng Inner [id number] - [id number] Implanted:Qt y: 4 on 02/22/2012 at OR [facility] N/A: Spine Lumbar JNJ : DEPUY SPINE [id number] / / Cage 28x8 Leopard [id number] - [id number] Implanted:Qt y: 1 on 02/22/2012 at OR [facility] N/A: Spine Lumbar JNJ : ETHICON CARDIOVATIONS [id number] / / Implant Brst Mod Cls Pro 360cc - [id number] Implanted:Qt y: 1 on 11/12/2012 at OR [facility] Right: Breast MENTOR KRISSY 09/11/2017 350-1660 / [id number] / [id number] Implant Brst Mod Cls Pro 360cc - [id number] Implanted:Qt y: 1 on 11/12/2012 at OR [facility] Left: Breast MENTOR KRISSY 08/12/2017 350-1360 / [id number] / [id number] 4.0 X 14 Variable Self Starting Screw Implanted:Qt y: 4 on 02/05/2020 by Luis Eduardo Ross MD at OR [facility] N/A: Spine Cervical KWADWO [id number] / / 1 Level 20mm [place] Plate Implanted:Qt y: 1 on 02/05/2020 by Luis Eduardo Ross MD at OR [facility] N/A: Spine Cervical KWADWO [id number] / / [id number] Alcutian Implanted:Qt y: 1 on 02/05/2020 by Luis Eduardo Ross MD at OR [facility] N/A: Spine Cervical KWADWO [id number] / / Description:alctuian cage 2.5cc Vitoss Bimodal Foam Pack Implanted:Qt y: 1 on 02/05/2020 by Luis Eduardo Ross MD at OR [facility] N/A: Spine Cervical KWADWO [id number] 11/29/2020 [address]556-1995 / [id number] / [id number] Sling Desara One - [id number] Implanted:Qt y: 1 on 08/31/2022 by Chico Perry MD at OR [facility] N/A: Vagina [employer] 08/10/2023 LEATHA-VE1044 / / [id number] Bone Mtrx Vivigen Formble 10cc - [id number] - [id number] Implanted:Qt y: 1 on 06/19/2024 by Joseph Giordano MD at OR [facility] N/A: Spine Lumbar LIFENET 04/29/2025 BL-1600-003 / [id number] / [id number] Implant Graft Bone Ifact 2.5cc - [id number] Implanted:Qt y: 1 on 06/19/2024 by Joseph Giordano MD at OR [facility] Spine Lumbar [employer] [id number] 04/03/2026 700-025 / / [id number] Eit/ Plif 13mm 12 Degree 22/9 Implanted:Qt y: 1 on 06/19/2024 by Joseph Giordano MD at OR [facility] N/A: Spine Lumbar 08/31/2025 [id number] / / [id number] Duragen Plus 1x3 Dp 1013 Min5 - [id number] - [id number] Implanted:Qt y: 1 on 06/19/2024 by Joseph Giordano MD at OR [facility] N/A: Spine Lumbar [employer] KRISSY [id number] 12/01/2026 [id number] / [id number] / [id number] Screw 6x45 Poly Si [id number] - [id number] Implanted:Qt y: 2 on 06/19/2024 by Joseph Giordano MD at OR [facility] N/A: Spine Lumbar JNJ : ETHICON CARDIOVATIONS [id number] / / Screw 7x45 Poly Si [id number] - [id number] Implanted:Qt y: 2 on 06/19/2024 by Joseph Giordano MD at OR [facility] N/A: Spine Lumbar JNJ : ETHICON CARDIOVATIONS [id number] / / Pre Lordosed Asif W Line 45mm - [id number] Implanted:Qt y: 2 on 06/19/2024 by Joseph Giordano MD at OR [facility] N/A: Spine Lumbar JNJ : DEPUY SPINE [id number] / / Screw Set Sng Inner [id number] - [id number] Implanted:Qt y: 4 on 06/19/2024 by Joseph Giordano MD at OR [facility] N/A: Spine Lumbar JNJ : ETHICON CARDIOVATIONS [id number] / / Expedium Ti Sfx 5.5 Lat A6 - [id number] Implanted:Qt y: 1 on 06/19/2024 by Joseph Giordano MD at OR [facility] N/A: Spine Lumbar JNJ : ETHICON CARDIOVATIONS [id number] / / documented as of this encounter [...] and were consensually agreed upon. Care Teams Assistant Casino Shift Manager Relationship Specialty Start Date End Date Elida Lance DO [address] [place] [address] PCP - General Family Medicine 05/22/24 documented as of this encounter
--- OUTSIDE RECORDS SUMMARY | 2024-07-19 10:00 | External Medical Summary | Summary of Care ---
Author Name Unknown Organization [facility] Address [address] [facility] [place] [address] Phone [phone] Care Team Providers Care Firestop/Containment Worker Name Role Phone Elida Lance DO Primary Care Provider [phone] Reason for Visit * Reason Onset Date Comments Appointment 07/06/2024 Encounter Details Date Type Department Care Team (Late st Contact Info) Description 07/06/2024 Telephone Care Coordination and Integration [address] [facility] [place] [address] Elida Lance DO [address] [place] [address] Appointment Allergies Active Allergy Reactions Criticality Noted Date Comments Nsaids 02/01/2020 Hx gastric bypass Other Allergy (See Comments) Rash Medium 11/27/2012 Dermabond prineo Penicillins 10/04/1999 Rash, last dose was in her 20's Has safely tolerated ancef before Sulfa Antibiotics 10/04/1999 Rash in her early 20's documented as of this encounter (statuses as of 07/07/2024) Medications MULTIVITAMINS PO CAPS Take 1 Capsule [...] 0.5 TabletOral PRN, Anxiety, Reported on 07/06/2024 traZODone HCl 150 MG Oral Tablet (Desyrel) [...] mouth daily as needed for Constipation. Active oxyCODONE HCl 5 MG Oral Tablet (Oxy IR) Take 1 Tablet by mouth every 4 hours as needed for moderate to severe pain. 45 Tablet 5 12:41 PM EDT 06/26/19 25 025 Discontin ued(Refil l) Baclofen 10 MG Oral Tablet (Lioresal) Take 1 Tablet by mouth 3 times a day as needed for Pain, Moderate (to be alternated with oxycodone per [facility] DC instructions 06/30). 025 Discontin ued(Refil l) documented as of this encounter (statuses as of 07/07/2024) Active Problems Problem Noted Date Diagnosed Date Major depressive disorder, recurrent, in partial remission 12/27/2021 Generalized anxiety disorder 12/27/2021 S/P cervical spinal fusion 02/05/2020 DDD (degenerative disc disease), cervical 2017 Major depressive disorder, recurrent, moderate 0 06/14/2017 Memory changes 01/01/2017 Benign hypertension with CKD (chronic kidney disease) stage III 12/26/2016 Controlled substance agreement signed 04/08/2015 DDD (degenerative disc disease), lumbar 11/21/19 12 [place] Conf[employer] Other*[id number] 06/11/2009 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 B12 malabsorption s/p gastric bypass 07/14/2002 Allergic rhinitis 02/12/2002 Dyslipidemia, goal LDL below 130 12/04/2001 Chronic rhinitis HTN, goal below 140/90 Spinal stenosis, lumbar Spondylolisthesis documented as of this encounter (statuses as of 07/07/2024) Resolved Problems Problem Noted Date Diagnosed Date [...] as of this encounter (statuses as of 07/07/2024) Immunizations Name Administration Dates Next Due COVID-19 mRNA, LNP-s, No Pre serve, 2-Dose Series ([employer]) 12/08/2020,11/17/2020 Pneumococcal Conjugate Vacc, 13 Valent (Prevnar) [...] encounter Miscellaneous Notes * Addendum Note - Mayra Blanchard LPN [...] Currently experiencing urinary frequency with urge incontinence. [place] text out to MEDICAL INSURANCE VERIFIER to have CHW bring urine specimen cup to patient and then drop specimen off atthe lab to rule out UTI. Will pend order to PCP. Please call patient to schedule hospital discharge appt. Does have transportation issues and uses [facility] transportation, so late morning or early afternoon appts are best. Dr. Perry's office- Patient in need of appt as she is c/o her labia being large and causing pain. If this TE was sent to the wrong pool, please forward to the correct pool. Thank you. Primary CM: Oscar Maradiaga [phone] documented in this encounter Plan of Treatment Upcoming Encounters Date Type Department Care Team (Late st Contact Info) Description 07/09/2024 1:00 PM EDT Telemedicine Medical Pain Management Jamal Esquivel [address] [place] [address] Crystal Betancur CRNP [address] [place] [address] 07/15/2024 2:00 PM EDT Telemedicine Psychiatry, [place] [address] [place] [phone] Brooke Deluca CRNP [address] [place] [address] 07/23/2024 1:00 PM EDT Telemedicine Nutrition Services [place] [address] [place] [address] Jasvir Johnson, RDN [address] [place] [address] 08/06/2024 12:15 PM EDT Office Visit Orthopaedics Spine Surgery, [place] [address] [place] [address] Joseph Giordano MD [address] [place] [address] 10/07/2024 2:40 PM EDT Telemedicine Endocrinology [address] [place] [address] Daniel Franco MD [address] [place] [address] 10/15/2024 3:30 PM EDT Office Visit Neurology [facility] [place] [address] [place] [address] Mariya Harding PA-C [address] [place] [address] 10/21/2024 12:10 PM EDT Office Visit [facility] [address] [facility] [place] [address] Elida Lance DO [address] [facility] [address] [place], [place] [address] 02/03/2026 2:20 PM EST Office Visit Dermatology, [address] [place] [address] Yessi Morton PA-C [address] [place] [address] [place] [address] Health Maintenance Due Date Last Done Comments Fecal Occult Blood Test 2006 Sigmoidoscopy 2006 Mammogram 08/09/2017 08/09/2016, 09/2015, 08/05/2014, Additional history exists Pneumococcal Vaccine: 50+ Years (3 of 3 - PCV20 or PCV21) 07/09/2021 07/09/2016, 08/21/2013 Colonoscopy 01/14/2022 01/15/2012, 01/15/2012 COVID-19 Vaccine ( season) 2023 12/08/2020, 11/17/2020 Albumin/Creatinine Ratio 03/21/2024 024, 02/03/2019, 09/05/2017, Additional history exists CKD PHOS USE SMARTSET 35666 10/17/202410/02, 03/16/2022, 02/09/2021, Additional history exists GFR 12/22/2024 06/22/2024, 06/03, 06/20/2024, Additional history exists Cologuard 04/04/2025 04/04/2022, 03/05, 03/27/2022 Colorectal Cancer Screening 04/04/2025 CKD HGB USE SMARTSET 98747 06/22/202506/22, 06/21/2024, 06/20/2024, Additional history exists Depression [...] this encounter Medical Devices Implanted Type Area Pbx Operator Device Identifier Shelf Expiration Date Model / Serial / Lot Graft Infuse Bone Sm [id number] - [id number] Implanted:Qt y: 1 on 02/22/2012 at OR [facility] N/A: Spine Lumbar MED[employer] : NEUROLOGIC PAIN 08/01/2014 [id number] / / [id number] Screw 6x45 Poly Si [id number] - [id number] Implanted:Qt y: 2 on 02/22/2012 at OR [facility] N/A: Spine Lumbar JNJ : ETHICON CARDIOVATIONS [id number] / / Screw 7x35 Poly Si [id number] - [id number] Implanted:Qt y: 2 on 02/22/2012 at OR [facility] N/A: Spine Lumbar JNJ : ETHICON CARDIOVATIONS [id number] / / Asif 5.5x55 Ti Prbnt [id number] - [id number] Implanted:Qt y: 2 on 02/22/2012 at OR [facility] N/A: Spine Lumbar JNJ : DEPUY SPINE [id number] / / Screw Set Sng Inner [id number] - [id number] Implanted:Qt y: 4 on 02/22/2012 at OR [facility] N/A: Spine Lumbar JNJ : DEPUY SPINE [id number] / / Cage 28x8 Leopard [id number] - [id number] Implanted:Qt y: 1 on 02/22/2012 at [place] [facility] N/A: Spine Lumbar JNJ : ETHICON CARDIOVATIONS [id number] / / Implant Brst Mod Cls Pro 360 - [id number] Implanted:Qt y: 1 on 11/12/2012 at [place] [facility] Right: Breast MENTOR KRISSY 09/11/2017 350-7360 / [id number] / [id number] Implant Brst Mod Cls Pro 360 - [id number] Implanted:Qt y: 1 on 11/12/2012 at [place] [facility] Left: Breast MENTOR KRISSY 08/12/2017 [facility]7360 / [id number] / [id number] 4.0 X 14 Variable Self Starting Screw Implanted:Qt y: 4 on 02/05/2020 by Luis Eduardo Ross MD at OR [facility] N/A: Spine Cervical KWADWO [id number] / / 1 Level 20mm [place] Plate Implanted:Qt y: 1 on 02/05/2020 by Luis Eduardo Ross MD at OR [facility] N/A: Spine Cervical KWADWO [id number] / / [id number] Alcutian Implanted:Qt y: 1 on 02/05/2020 by Luis Eduardo Ross MD at OR [facility] N/A: Spine Cervical KWADWO [id number] / / Description:alctuian cage 2.5cc Vitoss Bimodal Foam Pack Implanted:Qt y: 1 on 02/05/2020 by Luis Eduardo Ross MD at OR [facility] N/A: Spine Cervical KWADWO [id number] 11/29/2020 5509-0075 / [id number] / [id number] ing [facility] One - [id number] Implanted:Qt y: 1 on 08/31/2022 by Chico Perry MD at OR [facility] N/A: Vagina [employer] 08/10/2023 [id number]-[id number] / / [id number] Bone Mtrx Vivigen Formble 10cc - [id number] - [id number] Implanted:Qt y: 1 on 06/19/2024 by Joseph Giordano MD at OR [facility] N/A: Spine Lumbar LIFENET 04/29/2025 BL-1600-003 / [id number] / [id number] Implant Graft Bone Ifact 2.5cc - [id number] Implanted:Qt y: 1 on 06/19/2024 by Joseph Giordano MD at OR [facility] Spine Lumbar [employer] [id number] 04/03/2026 700-025 / / [id number] Eit/ Plif 13mm 12 Degree 23/11 Implanted:Qt y: 1 on 06/19/2024 by Joseph Giordano MD at OR [facility] N/A: Spine Lumbar 08/31/2025 [id number] / / [id number] Duragen Plus 1x3 Dp 1013 Min5 - [id number] - [id number] Implanted:Qt y: 1 on 06/19/2024 by Joseph Giordano MD at OR [facility] N/A: Spine Lumbar [employer] KRISSY [id number] 12/01/2026 FA0283 / [id number] / [id number] Screw 6x45 Poly Si [id number] - [id number] Implanted:Qt y: 2 on 06/19/2024 by Joseph Giordano MD at OR [facility] N/A: Spine Lumbar JNJ : ETHICON CARDIOVATIONS [id number] / / Screw 7x45 Poly Si [id number] - [id number] Implanted:Qt y: 2 on 06/19/2024 by Joseph Giordano MD at OR [facility] N/A: Spine Lumbar JNJ : ETHICON CARDIOVATIONS [id number] / / Pre Lordosed Asif W Line 45mm - [id number] Implanted:Qt y: 2 on 06/19/2024 by Joseph Giordano MD at OR [facility] N/A: Spine Lumbar JNJ : DEPUY SPINE [id number] / / Screw Set Sng Inner [id number] - [id number] Implanted:Qt y: 4 on 06/19/2024 by Joseph Giordano MD at OR [facility] N/A: Spine Lumbar JNJ : ETHICON CARDIOVATIONS [id number] / / Expedium Ti Sfx 5.5 Lat A6 - [id number] Implanted:Qt y: 1 on 06/19/2024 by Joseph Giordano MD at OR [facility] N/A: Spine Lumbar JNJ : ETHICON CARDIOVATIONS [id number] / / documented as of this encounter [...] and were consensually agreed upon. Care Teams Firestop/Containment Worker Relationship Specialty Start Date End Date Elida Lance DO [address] [place] [address] PCP - General Family Medicine 05/22/24 documented as of this encounter
--- OUTSIDE RECORDS SUMMARY | 2024-07-19 10:00 | External Medical Summary | Summary of Care ---
Author Name Unknown Organization [facility] Address [address] [facility] [place] [address] Phone [phone] Care Team Providers Care Motorized Squad Commanding Officer Name Role Phone Elida Lance DO Primary Care Provider [phone] Reason for Visit * Reason Onset Date Comments Appointment 07/06/2024 Encounter Details Date Type Department Care Team (Late st Contact Info) Description 07/06/2024 Telephone Care Coordination and Integration [address] [facility] [place] [address] Elida Lance DO [address] [place] [address] Appointment Allergies Active Allergy Reactions Criticality [...] (to be alternated with oxycodone per [facility] DC instructions 06/30). 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 [place] text out to RETAIL STORE CLERK to have CHW bring urine specimen cup to patient and then drop specimen off atthe lab to rule out UTI. Will pend order to PCP. Please call patient to schedule hospital discharge appt. Does have transportation issues and [facility], so late morning or early afternoon appts are best. Dr. Perry's office- Patient in need of appt as she is c/o her labia being large and causing pain. If this TE was sent to the wrong pool, please forward to the correct pool. Thank you. Primary CM: Oscar Maradiaga [phone] documented in this encounter Plan of Treatment Upcoming Encounters Date Type Department Care Team (Late st Contact Info) Description 07/09/2024 1:00 PM EDT Telemedicine Medical Pain Management Jamal Esquivel [address] [place] [address] Crystal Betancur CRNP [address] [place] [address] 07/15/2024 2:00 PM EDT Telemedicine Psychiatry, [place] [address] [facility] [place] [phone] Brooke Deluca CRNP [address] [facility] [place] [address] 07/23/2024 1:00 PM EDT Telemedicine Nutrition Services [place] [address] [place] [address] Jasvir Johnson, RDN [address] [place] [address] 08/06/2024 12:15 PM EDT Office Visit Orthopaedics Spine Surgery, [place] [address] [place] [address] Joseph Giordano MD [address] [place] [address] 10/07/2024 2:40 PM EDT Telemedicine Endocrinology [address] [place] [address] Daniel Franco MD [address] [place] [address] 10/15/2024 3:30 PM EDT Office Visit [facility] [address] [place] [address] Mariya Harding PA-C [address] [place] [address] 10/21/2024 12:10 PM EDT [facility] [address] [facility] [place] [address] Elida Lance DO [address] [facility] [address] [place], [place] [address] 02/03/2026 2:20 PM EST Office Visit Dermatology, [address] [place] [address] Yessi Morton PA-C [address] [place] [address] [place] [address] Health Maintenance Due Date Last Done Comments Fecal Occult Blood Test 2006 Sigmoidoscopy 2006 Mammogram 08/09/2017 08/09/2016, 09/2015, 08/05/2014, Additional history exists Pneumococcal Vaccine: 50+ Years (3 of 3 - PCV20 or PCV21) 07/09/2021 07/09/2016, 08/21/2013 Colonoscopy 01/14/2022 01/15/2012, 01/15/2012 COVID-19 Vaccine ( season) 2023 12/08/2020, 11/17/2020 Albumin/Creatinine Ratio 03/21/2024 024, 02/03/2019, 09/05/2017, Additional history exists CKD PHOS USE SMARTSET 63589 10/17/202410/02, 03/16/2022, 02/09/2021, Additional history exists GFR 12/22/2024 06/22/2024, 06/03, 06/20/2024, Additional history exists Cologuard 04/04/2025 04/04/2022, 03/05, 03/27/2022 Colorectal Cancer Screening 04/04/2025 CKD HGB USE SMARTSET 90805 06/22/202506/22, 06/21/2024, 06/20/2024, Additional history exists Depression [...] this encounter Medical Devices Implanted Type Area Serger Device Identifier Shelf Expiration Date Model / Serial / Lot Graft Infuse Bone Sm [id number] - [id number] Implanted:Qt y: 1 on 02/22/[address] [facility] N/A: Spine Lumbar [employer] : NEUROLOGIC PAIN 08/01/2014 [id number] / / [id number] Screw 6x45 Poly Si [id number] - [id number] Implanted:Qt y: 2 on 02/22/[address] [facility] N/A: Spine Lumbar JNJ : ETHICON CARDIOVATIONS [id number] / / Screw 7x35 Poly Si [id number] - [id number] Implanted:Qt y: 2 on 02/22/[address] [facility] N/A: Spine Lumbar JNJ : ETHICON CARDIOVATIONS [id number] / / Asif 5.5x55 Ti Prbnt [id number] - [id number] Implanted:Qt y: 2 on 02/22/[address] [facility] N/A: Spine Lumbar JNJ : DEPUY SPINE [id number] / / Screw Set Sng Inner [id number] - [id number] Implanted:Qt y: 4 on 02/22/[address] [facility] N/A: Spine Lumbar JNJ : DEPUY SPINE [id number] / / Cage 28x8 Leopard [id number] - [id number] Implanted:Qt y: 1 on 02/22/[address] [facility] N/A: Spine Lumbar JNJ : ETHICON CARDIOVATIONS [id number] / / Implant Brst Mod Cls Pro 360 - [id number] Implanted:Qt y: 1 on 11/12/[address] [facility] Right: Breast MENTOR KRISSY 09/11/2017 350-7360 / [id number] / [id number] Implant Brst Mod Cls Pro 360 - [id number] Implanted:Qt y: 1 on 11/12/[address] [facility] Left: Breast MENTOR KRISSY 08/12/2017 [facility]7360 / [id number] / [id number] 4.0 X 14 Variable Self Starting Screw Implanted:Qt y: 4 on 02/05/2020 by Luis Eduardo Ross MD at OR [facility] N/A: Spine Cervical KWADWO [id number] A / / 1 Level 20mm [place] Plate Implanted:Qt y: 1 on 02/05/2020 by Luis Eduardo Ross MD at OR [facility] N/A: Spine Cervical KWADWO [id number] / / [id number] Alcutian Implanted:Qt y: 1 on 02/05/2020 by Luis Eduardo Ross MD at OR [facility] N/A: Spine Cervical KWADWO [id number] / / Description:alctuian cage 2.5cc Vitoss Bimodal Foam Pack Implanted:Qt y: 1 on 02/05/2020 by Luis Eduardo Ross MD at OR [facility] N/A: Spine Cervical KWADWO [id number] 11/29/2020 5179-1333 / [id number] / [id number] ing [facility] One - [id number] Implanted:Qt y: 1 on 08/31/2022 by Chico Perry MD at OR [facility] N/A: Vagina [employer] 08/10/2023 LEATHA-ZV0103 / / [id number] Bone Mtrx Vivigen Formble 10cc - [id number] - [id number] Implanted:Qt y: 1 on 06/19/2024 by Joseph Giordano MD at OR [facility] N/A: Spine Lumbar LIFENET 04/29/2025 BL-1600-003 / [id number] / [id number] Implant Graft Bone Ifact 2.5cc - [id number] Implanted:Qt y: 1 on 06/19/2024 by Joseph Giordano MD at OR [facility] Spine Lumbar [employer] [id number] 04/03/2026 700-025 / / [id number] Eit/ Plif 13mm 12 Degree 23/11 Implanted:Qt y: 1 on 06/19/2024 by Joseph Giordano MD at OR [facility] N/A: Spine Lumbar 08/31/2025 [id number] / / [id number] Duragen Plus 1x3 Dp 1013 Min5 - [id number] - [id number] Implanted:Qt y: 1 on 06/19/2024 by Joseph Giordano MD at OR [facility] N/A: Spine Lumbar [employer] KRISSY [id number] 12/01/2026 QX5526 / [id number] / [id number] Screw 6x45 Poly Si [id number] - [id number] Implanted:Qt y: 2 on 06/19/2024 by Joseph Giordano MD at OR [facility] N/A: Spine Lumbar JNJ : ETHICON CARDIOVATIONS [id number] / / Screw 7x45 Poly Si [id number] - [id number] Implanted:Qt y: 2 on 06/19/2024 by Joseph Giordano MD at OR [facility] N/A: Spine Lumbar JNJ : ETHICON CARDIOVATIONS [id number] / / Pre Lordosed Asif W Line 45mm - [id number] Implanted:Qt y: 2 on 06/19/2024 by Joseph Giordano MD at OR [facility] N/A: Spine Lumbar JNJ : DEPUY SPINE [id number] / / Screw Set Sng Inner [id number] - [id number] Implanted:Qt y: 4 on 06/19/2024 by Joseph Giordano MD at OR [facility] N/A: Spine Lumbar JNJ : ETHICON CARDIOVATIONS [id number] / / Expedium Ti Sfx 5.5 Lat A6 - [id number] Implanted:Qt y: 1 on 06/19/2024 by Joseph Giordano MD at OR [facility] N/A: Spine Lumbar JNJ : ETHICON CARDIOVATIONS [id number] / / documented as of this encounter [...] and were consensually agreed upon. Care Teams Motorized Squad Commanding Officer Relationship Specialty Start Date End Date Elida Lance DO [address] [id number] PCP - General Family Medicine 05/22/24 documented as of this encounter
--- OUTSIDE RECORDS SUMMARY | 2024-07-19 10:00 | External Medical Summary | Summary of Care ---
Author Name Unknown Organization [facility] Address [address] [facility] [place] [address] Phone [phone] Care Team Providers Care Clinical Nursing Director Name Role Phone Elida Lance DO Primary Care Provider [phone] Reason for Visit * Reason Onset Date Comments Appointment 07/06/2024 Encounter Details Date Type Department Care Team (Late st Contact Info) Description 07/06/2024 Telephone Care Coordination and Integration [address] [facility] [place] [address] Elida Lance DO [address] [place] [address] Appointment Allergies Active Allergy Reactions Criticality [...] (to be alternated with oxycodone per [facility] DC instructions 06/30). 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 * Telephone Encounter - Elida Lance DO - 07/08/2024 12:38 PM EDT For abnormal ANGLE FURNACEMAN ie large labia, try to get an [...] Currently experiencing urinary frequency with urge incontinence. [place] text out to [facility] to have [facility] bring urine specimen cup to patient and then drop specimen off atthe lab to rule out UTI. Will pend order to PCP. Please call patient to schedule hospital discharge appt. Does have transportation issues and uses [facility] transportation, so late morning or early afternoon appts are best. Dr. Perry's office- Patient in need of appt as she is c/o her labia being large and causing pain. If this TE was sent to the wrong pool, please forward to the correct pool. Thank you. Primary CM: Oscar Maradiaga [phone] documented in this encounter Plan of Treatment Upcoming Encounters Date Type Department Care Team (Late st Contact Info) Description 07/09/2024 1:00 PM EDT Telemedicine Medical Pain Management [facility] 16 [place] [address] Crystal Betancur CRNP [address] [place] [address] 07/13/2024 11:10 AM EDT Office Visit [facility] [address] [place] [phone] Elida Lance DO [address] [place] [address] 07/15/2024 2:00 PM EDT Telemedicine Psychiatry, [place] [address] [place] [address] Brooke Deluca CRNP [address] [facility] [place] [id number] 07/23/2024 1:00 PM EDT Telemedicine Nutrition Services [address] [place] [address] Jasvir Johnson, RDN [address] [place] [address] 08/06/2024 12:15 PM EDT Office Visit Orthopaedics Spine Surgery, [place] [address] [place] [address] Joseph Giordano MD [address] [place], [place] [address] 10/07/2024 2:40 PM EDT Telemedicine Endocrinology [place] [address] [place] [address] Daniel Franco MD [address] [place] [address] 10/15/2024 3:30 PM EDT Office Visit Neu[facility] 200 [place] [address] Mariya Harding PA-C [facility] [place] [address] 10/21/2024 12:10 PM EDT Office Visit [facility], [place] [address] [facility] [place] [address] Elida Lance DO [address] [facility] [place] [address] 02/03/2026 2:20 PM EST Office Visit Dermatology, [place] [address] [place] [address] Yessi Morton, PAEfrainC [address] [place] [address] [place] [phone] Health Maintenance Due Date Last Done Comments Fecal Occult Blood Test 2006 Sigmoidoscopy 2006 Mammogram 08/09/2017 08/09/2016, 06/0 09/2015, 08/05/2014, Additional history exists Pneumococcal Vaccine: 50+ Years (3 of 3 - PCV20 or PCV21) 07/09/2021 07/09/2016, 08/21/2013 Colonoscopy 01/14/2022 01/15/2012, 01/15/2012 COVID-19 Vaccine (3 - season) 2023 12/08/2020, 11/17/2020 Albumin/Creatinine Ratio 03/21/2024 024, 02/03/2019, 09/05/2017, Additional history exists CKD PHOS USE SMARTSET 73629 10/17/202410/02, 03/16/2022, 02/09/2021, Additional history exists GFR 12/22/2024 06/22/2024, 06/03, 06/20/2024, Additional history exists Cologuard 04/04/2025 04/04/2022, 03/05, 03/27/2022 Colorectal Cancer Screening 04/04/2025 CKD HGB USE SMARTSET 15530 06/22/202506/22, 06/21/2024, 06/20/2024, Additional history exists Depression [...] this encounter Medical Devices Implanted Type Area Spool Cleaner Hand Device Identifier Shelf Expiration Date Model / Serial / Lot Graft Infuse Bone Sm [id number] - [id number] Implanted:Qt y: 1 on 02/22/2012 at [place] [facility] [place]A: Spine Lumbar MED[employer] : NEUROLOGIC PAIN 08/01/2014 [id number] / / [id number] Screw 6x45 Poly Si [id number] - [id number] Implanted:Qt y: 2 on 02/22/2012 at [place] [facility] [place]/A: Spine Lumbar JNJ : ETHICON CARDIOVATIONS [id number] / / Screw 7x35 Poly Si [id number] - [id number] Implanted:Qt y: 2 on 02/22/2012 at [place] [facility] N/A: Spine Lumbar JNJ : ETHICON CARDIOVATIONS [id number] / / Asif 5.5x55 Ti Prbnt [id number] - [id number] Implanted:Qt y: 2 on 02/22/2012 at [place] [facility] N/A: Spine Lumbar JNJ : DEPUY SPINE [id number] / / Screw Set Sng Inner [id number] - [id number] Implanted:Qt y: 4 on 02/22/2012 at OR [facility] N/A: Spine Lumbar JNJ : DEPUY SPINE [id number] / / Cage 28x8 Leopard [id number] - [id number] Implanted:Qt y: 1 on 02/22/2012 at [place] [facility] N/A: Spine Lumbar JNJ : ETHICON CARDIOVATIONS [id number] / / Implant Brst Mod Cls Pro 360cc - [id number] Implanted:Qt y: 1 on 11/12/2012 at [place] [facility] Right: Breast MENTOR KRISSY 09/11/2017 [id number] / [id number] / [id number] Implant Brst Mod Cls Pro 360cc - [id number] Implanted:Qt y: 1 on 11/12/2012 at [place] [facility] Left: Breast MENTOR KRISSY 08/12/2017 350-4860 / [id number] / [id number] 4.0 X 14 Variable Self Starting Screw Implanted:Qt y: 4 on 02/05/2020 by Luis Eduardo Ross MD at OR [facility] N/A: Spine Cervical KWADWO [id number] / / 1 Level 20mm [place]itch[place] View Plate Implanted:Qt y: 1 on 02/05/2020 by Luis Eduardo Ross MD at OR [facility] N/A: Spine Cervical KWADWO [id number] / / [id number] ree Alcutian Implanted:Qt y: 1 on 02/05/2020 by Luis Eduardo Ross MD at OR [facility] N/A: Spine Cervical KWADWO [id number] / / Description:alctuian cage 2.5cc Vitoss Bimodal Foam Pack Implanted:Qt y: 1 on 02/05/2020 by Luis Eduardo Ross MD at OR [facility] N/A: Spine Cervical KWADWO [id number] 11/29/2020 2736-5981 / [id number] / [id number] Sling Desara One - [id number] Implanted:Qt y: 1 on 08/31/2022 by Chico Perry MD at OR [facility] N/A: Vagina [employer] 08/10/2023 [id number]-[id number] / / [id number] Bone Mtrx Vivigen Formble 10cc - [id number] - [id number] Implanted:Qt y: 1 on 06/19/2024 by Joseph Giordano MD at OR [facility] N/A: Spine Lumbar LIFENET 04/29/2025 BL-1600-003 / [id number] / [id number] Implant Graft Bone Ifact 2.5cc - [id number] Implanted:Qt y: 1 on 06/19/2024 by Joseph Giordano MD at OR [facility] Spine Lumbar [employer] [id number] 04/03/2026 700-025 / / [id number] Eit/ Plif 13mm 12 Degree 22/ Implanted:Qt y: 1 on 06/19/2024 by Joseph Giordano MD at OR [facility] N/A: Spine Lumbar 08/31/2025 [id number] / / [id number] Duragen Plus 1x3 Dp 1013 Min5 - [id number] - [id number] Implanted:Qt y: 1 on 06/19/2024 by Joseph Giordano MD at OR [facility] N/A: Spine Lumbar [employer] KRISSY [id number] 12/01/2026 [id number] / [id number] / [id number] Screw 6x45 Poly Si [id number] - [id number] Implanted:Qt y: 2 on 06/19/2024 by Joseph Giordano MD at [place] [facility] N/A: Spine Lumbar JNJ : ETHICON CARDIOVATIONS [id number] / / Screw 7x45 Poly Si [id number] - [id number] Implanted:Qt y: 2 on 06/19/2024 by Joseph Giordano MD at [place] [facility] N/A: Spine Lumbar JNJ : ETHICON CARDIOVATIONS [id number] / / Pre Lordosed Asif W Line 45mm - [id number] Implanted:Qt y: 2 on 06/19/2024 by Joseph Giordano MD at [place] [facility] N/A: Spine Lumbar JNJ : DEPUY SPINE [id number] / / Screw Set Sng Inner [id number] - [id number] Implanted:Qt y: 4 on 06/19/2024 by Joseph Giordano MD at [place] [facility] N/A: Spine Lumbar JNJ : ETHICON CARDIOVATIONS [id number] / / Expedium Ti Sfx 5.5 Lat A6 - [id number] Implanted:Qt y: 1 on 06/19/2024 by Joseph Giordano MD at [place] [facility] N/A: Spine Lumbar JNJ : ETHICON CARDIOVATIONS [id number] / / documented as of this encounter [...] and were consensually agreed upon. Care Teams Clinical Nursing Director Relationship Specialty Start Date End Date Elida Lance DO [address] [place] [address] PCP - General Family Medicine 05/22/24 documented as of this encounter
--- OUTSIDE RECORDS SUMMARY | 2024-07-19 10:00 | External Medical Summary | Summary of Care ---
Author Name Unknown Organization [facility] Address [address] [facility] [place] [address] Phone [phone] Care Team Providers Care Health Program Director Name Role Phone Elida Lance DO Primary Care Provider [phone] Reason for Visit * Reason Comments Medication Refill Encounter Details Date Type Department Care Team (Late st Contact Info) Description 07/06/2024 Refill Psychiatry Jamal Silva [address] [place] [address] Jesu Armijo MD [address] [place] [address] Allergies Active Allergy Reactions Criticality Noted Date [...] tablet by mouth daily 50 Tablet 3 06/30/2024 12:53 PM EDT 06/27/19 25 Active Pantoprazole [...] at bedtime. 90 Tablet 07/09/19 25 Active traZODone HCl 150 MG Oral Tablet (Desyrel) Take 1 Tablet by mouth at bedtime. 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 B12 malabsorption [...] mRNA, LNP-s, No Pre serve, 2-Dose Series ([place]) 12/08/2020,11/17/2020 Pneumococcal Conjugate Vacc, 13 Valent (Prevnar) [...] 06/19/2024 6:06 PM EDKrystle Beckman RN * Are you blind or do [...] Telephone Encounter - Jesu Armijo MD - 07/08/2024 11:40 AM EDTSigned Prescriptions: Disp Refills traZODone HCl 150 MG Oral Tablet 90 Tab*0 Sig: Take 1 Tablet by mouth at bedtime.Authorizing Provider: JESU ARMIJO documented in this encounter Plan of Treatment Upcoming Encounters Date Type Department Care Team (Late st Contact Info) Description 07/09/2024 1:00 PM EDT Telemedicine Medical Pain Management Jamal Esquivel [address] [place] [address] Crystal Betancur CRNP 16 [place] [address] 07/13/2024 11:10 AM EDT Office Visit [facility] [address] [place] [address] Elida Lance DO [address] [place] [address] 07/15/2024 2:00 PM EDT Telemedicine Psychiatry, [place] [address] [place] [address] Brooke Deluca CRNP [address] [place] [address] 07/23/2024 1:00 PM EDT Telemedicine Nutrition Services [address] [place] [address] Jasvir Johnson, RDN [address] [place] [address] [place] [address] 08/06/2024 12:15 PM EDT Office Visit Orthopaedics Spine Surgery, [place] [address] [place] [address] Joseph Giordano MD [address] [place] [address] 10/07/2024 2:40 PM EDT Telemedicine Endocrinology [address] [place] [address] Daniel Franco MD [address] [place] [address] 10/15/2024 3:30 PM EDT Office Visit Neurology [facility] [place] [address] [facility] [address] Mariya Harding PA-C [address] [place] [address] 10/21/2024 12:10 PM EDT [facility] [place] [facility] [address] [facility] [address] Elida Lance DO [address] [facility] [place] [address] 02/03/2026 2:20 PM EST [facility] [place] [facility] [address] [facility] [place] [address] Yessi Morton PA-C [address] [place] [address] [place] [address] Health Maintenance Due Date Last Done Comments Fecal Occult Blood Test 2006 Sigmoidoscopy 2006 Mammogram 08/09/2017 08/09/2016, 0609/2015, 08/05/2014, Additional history exists Pneumococcal Vaccine: 50+ Years (3 of 3 - PCV20 or PCV21) 07/09/2021 07/09/2016, 08/21/2013 Colonoscopy 01/14/2022 01/15/2012, 01/15/2012 COVID-19 Vaccine (3 - season) 2023 12/08/2020, 11/17/2020 Albumin/Creatinine Ratio 03/21/202403/21/2 024, 02/03/2019, 09/05/2017, Additional history exists CKD PHOS USE SMARTSET 84257 10/17/2024 0808/2023, 03/16/2022, 02/09/2021, Additional history exists GFR 12/22/2024 06/22/2024, 06/03, 06/20/2024, Additional history exists Cologuard 04/04/2025 04/04/2022, 03/05, 03/27/2022 Colorectal Cancer Screening 04/04/2025 CKD HGB USE SMARTSET 45378 06/22/202506/22, 06/21/2024, 06/20/2024, Additional history exists Depression [...] this encounter Medical Devices Implanted Type Area Nanotechnology Engineering Technician Device Identifier Shelf Expiration Date Model / Serial / Lot Graft Infuse Bone Sm [id number] - [id number] Implanted:Qt y: 1 on 02/22/2012 at [place] [facility] N/A: Spine Lumbar [employer] : NEUROLOGIC PAIN 08/01/2014 [id number] / / [id number] Screw 6x45 Poly Si [id number] - [id number] Implanted:Qt y: 2 on 02/22/2012 at [place] [facility] N/A: Spine Lumbar JNJ : ETHICON CARDIOVATIONS [id number] / / Screw 7x35 Poly Si [id number] - [id number] Implanted:Qt y: 2 on 02/22/2012 at OR [facility] N/A: Spine Lumbar JNJ : ETHICON CARDIOVATIONS [id number] / / Asif 5.5x55 Ti Prbnt [id number] - [id number] Implanted:Qt y: 2 on 02/22/2012 at [place] [facility] N/A: Spine Lumbar JNJ : DEPUY SPINE [id number] / / Screw Set Sng Inner [id number] - [id number] Implanted:Qt y: 4 on 02/22/2012 at OR [facility] N/A: Spine Lumbar JNJ : DEPUY SPINE [id number] / / Cage 28x8 Leopard [id number] - [id number] Implanted:Qt y: 1 on 02/22/2012 at [place] [facility] N/A: Spine Lumbar JNJ : ETHICON CARDIOVATIONS [id number] / / Implant Brst Mod Cls Pro 360cc - [id number] Implanted:Qt y: 1 on 11/12/2012 at [place] [facility] Right: Breast MENTOR KRISSY 09/11/2017 350-7360 / [id number] / [id number] Implant Brst Mod Cls Pro 360cc - [id number] Implanted:Qt y: 1 on 11/12/2012 at [place] [facility] Left: Breast MENTOR KRISSY 08/12/2017 350-7360 / [id number] / [id number] 4.0 X 14 Variable Self Starting Screw Implanted:Qt y: 4 on 02/05/2020 by Luis Eudardo Ross MD at OR [facility] N/A: Spine Cervical KWADWO [id number] A / / 1 Level 20mm [place] Plate Implanted:Qt y: 1 on 02/05/2020 by Luis Eduardo Ross MD at OR [facility] N/A: Spine Cervical KWADWO [id number] / / [id number] ree Alcutian Implanted:Qt y: 1 on 02/05/2020 by Luis Eduardo Ross MD at OR [facility] N/A: Spine Cervical KWADWO [id number] / / Description:alctuian cage 2.5cc Vitoss Bimodal Foam Pack Implanted:Qt y: 1 on 02/05/2020 by Luis Eduardo Ross MD at OR [facility] N/A: Spine Cervical KWADWO [id number] 11/29/2020 3601-4457 / [id number] / [id number] Sling Andrzej One - [id number] Implanted:Qt y: 1 on 08/31/2022 by Chico Perry MD at OR [facility] N/A: Vagina [employer] 08/10/2023 LEATHA-[id number] / / [id number] Bone Mtrx Vivigen Formble 10cc - [id number] - [id number] Implanted:Qt y: 1 on 06/19/2024 by Joseph Giordano MD at [place] [facility] N/A: Spine Lumbar LIFENET 04/29/2025 BL-1600-003 / [id number] / [id number] Implant Graft Bone Ifact 2.5cc - [id number] Implanted:Qt y: 1 on 06/19/2024 by Joseph Giordano MD at [place] [facility] Spine Lumbar [employer] [id number] 04/03/2026 700-025 / / [id number] Eit/ Plif 13mm 12 Degree 23/11 Implanted:Qt y: 1 on 06/19/2024 by Joseph Giordano MD at OR [facility] N/A: Spine Lumbar 08/31/2025 [id number] / / [id number] Duragen Plus 1x3 Dp 1013 Min5 - [id number] - [id number] Implanted:Qt y: 1 on 06/19/2024 by Joseph Giordano MD at OR [facility] N/A: Spine Lumbar [employer] KRISSY [id number] 12/01/2026 [id number] / [id number] / [id number] Screw 6x45 Poly Si [id number] - [id number] Implanted:Qt y: 2 on 06/19/2024 by Joseph Giordano MD at OR [facility] N/A: Spine Lumbar JNJ : ETHICON CARDIOVATIONS [id number] / / Screw 7x45 Poly Si [id number] - [id number] Implanted:Qt y: 2 on 06/19/2024 by Joseph Giordano MD at OR [facility] N/A: Spine Lumbar JNJ : ETHICON CARDIOVATIONS [id number] / / Pre Lordosed Asif W Line 45mm - [id number] Implanted:Qt y: 2 on 06/19/2024 by Joseph Giordano MD at OR [facility] N/A: Spine Lumbar JNJ : DEPUY SPINE [id number] / / Screw Set Sng Inner [id number] - [id number] Implanted:Qt y: 4 on 06/19/2024 by Joseph Giordano MD at OR [facility] N/A: Spine Lumbar JNJ : ETHICON CARDIOVATIONS [id number] / / Expedium Ti Sfx 5.5 Lat A6 - [id number] Implanted:Qt y: 1 on 06/19/2024 by Joseph Giordano MD at OR [facility] N/A: Spine Lumbar JNJ : ETHICON CARDIOVATIONS [id number] / / documented as of this encounter [...] and were consensually agreed upon. Care Teams Health Program Director Relationship Specialty Start Date End Date Elida Lance DO [address] [place] [address] PCP - General Family Medicine 05/22/24 documented as of this encounter
--- OUTSIDE RECORDS SUMMARY | 2024-07-19 10:00 | External Medical Summary | Summary of Care ---
Author Name Unknown Organization [facility] Address [address] [facility] [place] [address] Phone [phone] Care Team Providers Care Aeronautical Test Engineer Name Role Phone Elida Lance DO Primary Care Provider [phone] Reason for Visit * Reason Onset Date Comments Appointment 07/06/2024 Encounter Details Date Type Department Care Team (Late st Contact Info) Description 07/06/2024 Telephone Care Coordination and Integration [address] [facility] [place] [address] Elida Lance DO [address] [place] [address] Appointment Allergies Active Allergy Reactions Criticality [...] Moderate (to be alternated with oxycodone per [facility] DC instructions 06/30). 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 * Addendum Note - Mayra Blanchard LPN - 07/07/2024 2:30 PM EDTAddended by: MAYRA BLANCHARD on: 07/07/2024 02:30 PM Modules accepted: Orders * Telephone Encounter - Mayar Blanchard LPN - 07/07/2024 2:26 PM EDT Pt needs a general gynecology referral. Pended referral * Telephone Encounter - Elida Lance DO - 07/06/2024 1:46 PM EDT Urine testing was ordered. * Telephone Encounter - Radha Harper RN - 07/06/2024 9:52 AM EDT Patient in need of PCP hospital [place] appt. Currently experiencing urinary frequency with urge incontinence. [place] text out to [facility] to have [facility] bring urine specimen cup to patient and then drop specimen off atthe lab to rule out UTI. Will pend order to PCP. Please call patient to schedule hospital discharge appt. Does have transportation issues and uses [facility] transportation, so late morning or early afternoon appts are best. Dr. Perry's office- Patient in need of appt as she is c/o her labia being large and causing pain. If this TE was sent to the wrong pool, please forward to the correct pool. Thank you. Primary CM: Oscar Maradiaga [phone] documented in this encounter Plan of Treatment Upcoming Encounters Date Type Department Care Team (Late st Contact Info) Description 07/09/2024 1:00 PM EDT Telemedicine Medical Pain Management Jamal Esquivel [address] [place], [place] [id number] Crystal Betancur CRNP [address] [place], [place] [id number] 07/15/2024 2:00 PM EDT Telemedicine Psychiatry, [place] [address] [place] [address] Brooke Deluca CRNP [address] [place] [address] 07/23/2024 1:00 PM EDT Telemedicine Nutrition Services [address] [place] [address] Jasvir Johnson, RDN [address] [place] [address] 08/06/2024 12:15 PM EDT Office Visit Orthopaedics Spine Surgery, [place] [address] [place] [address] Joseph Giordano MD [address] [place] [address] 10/07/2024 2:40 PM EDT Telemedicine Endocrinology [address] [place] [address] Daniel Franco MD [address] [place] [address] [address] 10/15/2024 3:30 PM EDT Office Visit Neurology [facility] [place] [address] [facility] [place] [address] Mariya Harding PARosalia [address] [place] [address] 10/21/2024 12:10 PM EDT Office Visit Family Practice, [place] [address] [place] [address] Elida Lance DO [address] [place] [address] 02/03/2026 2:20 PM EST Office Visit Dermatology, [place] [address] [place] [address] Yessi Morton PA-C [address] [place] [address] [place] [address] Health Maintenance Due Date Last Done Comments Fecal Occult Blood Test 2006 Sigmoidoscopy 2006 Mammogram 08/09/2017 08/09/2016, 09/2015, 08/05/2014, Additional history exists Pneumococcal Vaccine: 50+ Years (3 of 3 - PCV20 or PCV21) 07/09/2021 07/09/2016, 08/21/2013 Colonoscopy 01/14/2022 01/15/2012, 01/15/2012 COVID-19 Vaccine ( season) 2023 12/08/2020, 11/17/2020 Albumin/Creatinine Ratio 03/21/2024 024, 02/03/2019, 09/05/2017, Additional history exists CKD PHOS USE SMARTSET 25927 10/17/202410/02, 03/16/2022, 02/09/2021, Additional history exists GFR 12/22/2024 06/22/2024, 06/03, 06/20/2024, Additional history exists Cologuard 04/04/2025 04/04/2022, 03/05, 03/27/2022 Colorectal Cancer Screening 04/04/2025 CKD HGB USE SMARTSET 96127 06/22/202506/22, 06/21/2024, 06/20/2024, Additional history exists Depression Monitoring 07/06/2025 07/06/2024 , 05/20/2024, 01/02/2024, Additional history exists Diabetes Screening 06/23/2027 06/22/2024, 0 06/21/2024, 06/20/2024, Additional history exists Lipid Panel 09/12/2028 09/13/2023, 08/, 02/03/2019, Additional history exists DTap/Tdap Vaccines (3 [...] this encounter Medical Devices Implanted Type Area Food Counselor Device Identifier Shelf Expiration Date Model / Serial / Lot Graft Infuse Bone Sm [id number] - [id number] Implanted:Qt y: 1 [place] [facility] [place] Spine Lumbar MEDTRONIC : NEUROLOGIC PAIN 08/01/2014 [id number] / / [id number] Screw 6x45 Poly Si [id number] - [id number] Implanted:Qt y: 2 on 02/22/2012 [place] [facility] [place]: Spine Lumbar JNJ : ETHICON CARDIOVATIONS [id number] / / Screw 7x35 Poly Si [id number] - [id number] Implanted:Qt y: 2 on 02/22/2012 [place] [facility] [place]: Spine Lumbar JNJ : ETHICON CARDIOVATIONS [id number] / / Asif 5.5x55 Ti Prbnt [id number] - [id number] Implanted:Qt y: 2 on 02/22/2012 [place] [facility] [place]: Spine Lumbar JNJ : DEPUY SPINE [id number] / / Screw Set Sng Inner [id number] - [id number] Implanted:Qt y: 4 on 02/22/2012 [place] [facility] [place]: Spine Lumbar JNJ : DEPUY SPINE [id number] / / Cage 28x8 Leopard [id number] - [id number] Implanted:Qt y: 1 on 02/22/2012 [place] [facility] [place]: Spine Lumbar JNJ : ETHICON CARDIOVATIONS [id number] / / Implant Brst Mod Cls Pro 360cc - [id number] Implanted:Qt y: 1 on 11/12/2012 [place] [facility] [place] Right: Breast MENTOR KRISSY 09/11/2017 350-7360 / [id number] / [id number] Implant Brst Mod Cls Pro 360cc - [id number] Implanted:Qt y: 1 on 11/12/2012 [place] [facility] [place] Left: Breast MENTOR KRISSY 08/12/2017 350-7360 / [id number] / [id number] 4.0 X 14 Variable Self Starting Screw Implanted:Qt y: 4 on 02/05/2020 by Luis Eduardo Ross MD at OR [facility] N/A: Spine Cervical KWADWO [id number] / / 1 Level 20mm [place] View Plate Implanted:Qt y: 1 on 02/05/2020 by Luis Eduardo Ross MD at OR [facility] N/A: Spine Cervical KWADWO [id number] / / [id number] Alcutian Implanted:Qt y: 1 on 02/05/2020 by Luis Eduardo Ross MD at OR [facility] N/A: Spine Cervical KWADWO [id number] / / Description:alctuian cage 2.5cc Vitoss Bimodal Foam Pack Implanted:Qt y: 1 on 02/05/2020 by Luis Eduardo Ross MD at OR [facility] N/A: Spine Cervical KWADWO [id number] 11/29/2020 3329-3270 / [id number] / [id number] Tishing Andrzej One - [id number] Implanted:Qt y: 1 on 08/31/2022 by Chico Perry MD at OR [facility] N/A: Vagina [employer] 08/10/2023 LEATHA-PS8858 / / [id number] Bone Mtrx Vivigen Formble 10cc - [id number] - [id number] Implanted:Qt y: 1 on 06/19/2024 by Joseph Giordano [place] [facility] [place]: Spine Lumbar LIFENET 04/29/2025 BL-1600-003 / [id number] / [id number] Implant Graft Bone Ifact 2.5cc - [id number] Implanted:Qt y: 1 on 06/19/2024 by Joseph Giordano [place] [facility] [place] Spine Lumbar [employer] [id number] 04/03/2026 700-025 / / [id number] Eit/ Plif 13mm 12 Degree 23/11 Implanted:Qt y: 1 on 06/19/2024 by Joseph Giordano MD [place] [facility] [place]: Spine Lumbar 08/31/2025 [id number] / / [id number] Duragen Plus 1x3 Dp 1013 Min5 - [id number] - [id number] Implanted:Qt y: 1 on 06/19/2024 by Joseph Giordano MD [place] [facility] [place]: Spine Lumbar [employer] KRISSY [id number] 12/01/2026 TI0684 / [id number] / [id number] Screw 6x45 Poly Si [id number] - [id number] Implanted:Qt y: 2 on 06/19/2024 by Joseph Giordano MD [place] [facility] [place]: Spine Lumbar JNJ : ETHICON CARDIOVATIONS [id number] / / Screw 7x45 Poly Si [id number] - [id number] Implanted:Qt y: 2 on 06/19/2024 by Joseph Giordano MD [place] [facility] [place]: Spine Lumbar JNJ : ETHICON CARDIOVATIONS [id number] / / Pre Lordosed Asif W Line 45mm - [id number] Implanted:Qt y: 2 on 06/19/2024 by Joseph Giordano MD [place] [facility] [place]: Spine Lumbar JNJ : DEPUY SPINE [id number] / / Screw Set Sng Inner [id number] - [id number] Implanted:Qt y: 4 on 06/19/2024 by Joseph Giordano MD [place] [facility] [place]: Spine Lumbar JNJ : ETHICON CARDIOVATIONS [id number] / / Expedium Ti Sfx 5.5 Lat A6 - [id number] Implanted:Qt y: 1 on 06/19/2024 by Joseph Giordano [place] [facility] [place]: Spine Lumbar JNJ : ETHICON CARDIOVATIONS [id number] / / documented as of this encounter [...] and were consensually agreed upon. Care Teams Aeronautical Test Engineer Relationship Specialty Start Date End Date Elida Lance DO [address] [address] PCP - General Family Medicine 05/22/24 documented as of this encounter
--- OUTSIDE RECORDS SUMMARY | 2024-07-19 10:00 | External Medical Summary | Summary of Care ---
Author Name Unknown Organization [facility] Address [address] [place] [address] Phone [phone] Care Team Providers Care Youth Services Librarian Name Role Phone Elida Lance DO Primary Care Provider [phone] Reason for Visit * Reason Onset Date Comments Medication Refill 07/07/2024 Encounter Details Date Type Department Care Team (Late st Contact Info) Description 07/07/2024 Telephone Orthopaedics, [place] [address] [place] [address] Joseph Giordano MD [address] [place] [address] Medication Refill Allergies Active Allergy Reactions Criticality Noted Date [...] Active Metoprolol Tartrate 25 MG Oral Tablet (Lopressor)Indicat [...] mouth daily as needed for Constipation. Active Ondansetron 4 MG Oral Tablet Disintegrating (Zofran) Place 1 Tablet on tongue every 8 hours as needed for Nausea. dissolve on tongue. 20 Tablet 07/08/19 25 Active Baclofen 10 MG Oral Tablet (Lioresal) Take 1 Tablet by mouth 3 times a day as needed for Pain, Moderate (to be alternated with oxycodone per [facility] instructions 06/30). 45 Tablet 07/08/19 25 Active oxyCODONE HCl 5 MG Oral Tablet (Oxy IR) Take 1 Tablet by mouth every 4 hours as needed for Pain, Moderate. 45 Tablet 07/08/19 25 Active oxyCODONE HCl [...] (to be alternated with oxycodone per [facility] instructions 06/30). 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 B12 malabsorption [...] mRNA, LNP-s, No Pre serve, 2-Dose Series ([facility]) 12/08/2020,11/17/2020 Pneumococcal Conjugate Vacc, 13 Valent (Prevnar) [...] Telephone Encounter - Sheree Maradiaga LPN - 07/07/2024 3:11 PM EDT Patient calling back to check status Advised that her requested prescriptions were sent in earlier today She will check with pharmacy * Telephone Encounter - Elham Gutierrez PA-C - 07/07/2024 1:49 PM EDT Meds sent in * Telephone Encounter - Sheree Maradiaga LPN - 07/07/2024 11:45 AM EDT Patient calling into case mgmt for medication refills She took last Oxy 5 mg this morning and is now out She is out of her Ondansetron 4 mg tabs and would like refill She has 1 tab left of Baclofen and would like refill Please order new refills if agreeable Can be sent to [facility] documented in this encounter Plan of Treatment Upcoming Encounters Date Type Department Care Team (Late st Contact Info) Description 07/09/2024 1:00 PM EDT Telemedicine Medical Pain Management Jamal Esquivel [place] [address] Crystal Betancur CRNP [address] [place] [address] 07/15/2024 2:00 PM EDT Telemedicine Psychiatry, [address] [place] [phone] Brooke Deluca CRNP [address] [place] [address] 07/23/2024 1:00 PM EDT Telemedicine Nutrition Services [place] [address] [place] [address] Jasvir Johnson, RDN [address] [place] [address] 08/06/2024 12:15 PM EDT Office Visit Orthopaedics Spine Surgery, [place] [address] [place] [address] Joseph Giordano MD [address] [place], [place] [address] 10/07/2024 2:40 PM EDT Telemedicine Endocrinology [address] [place] [address] Daniel Franco MD [address] [place] [address] 10/15/2024 3:30 PM EDT Office Visit Neurology [facility] [address] [place] [address] Mariya Harding PA-C [address] [facility] [place] [address] 10/21/2024 12:10 PM EDT Office Visit Family Practice, [facility] [address] [facility] [place] [address] Elida Lance DO [address] [address] 02/03/2026 2:20 PM EST Office Visit Dermatology, [place] [address] [facility] [place] [address] Yessi Morton PA-C [address] [place] [address] [place] [address] Health Maintenance Due Date Last Done Comments Fecal Occult Blood Test 2006 Sigmoidoscopy 2006 Mammogram 08/09/2017 08/09/2016, 0609/2015, 08/05/2014, Additional history exists Pneumococcal Vaccine: 50+ Years (3 of 3 - PCV20 or PCV21) 07/09/2021 07/09/2016, 08/21/2013 Colonoscopy 01/14/2022 01/15/2012, 01/15/2012 COVID-19 Vaccine ( season) 2023 12/08/2020, 11/17/2020 Albumin/Creatinine Ratio 03/21/2024 024, 02/03/2019, 09/05/2017, Additional history exists CKD PHOS USE SMARTSET 59902 10/17/202410/02, 03/16/2022, 02/09/2021, Additional history exists GFR 12/22/2024 06/22/2024, 06/03, 06/20/2024, Additional history exists Cologuard 04/04/2025 04/04/2022, 03/05, 03/27/2022 Colorectal Cancer Screening 04/04/2025 CKD HGB USE SMARTSET 34393 06/22/202506/22, 06/21/2024, 06/20/2024, Additional history exists Depression [...] this encounter Medical Devices Implanted Type Area Rib Stiffener And Heel Dipper Device Identifier Shelf Expiration Date Model / Serial / Lot Graft Infuse Bone Sm [id number] - [id number] Implanted:Qt y: 1 on 02/22/2012 at [place] [facility] [place]/A: Spine Lumbar [employer] : NEUROLOGIC PAIN 08/01/2014 [id number] / / [id number] Screw 6x45 Poly Si [id number] - [id number] Implanted:Qt y: 2 on 02/22/2012 at [place] [facility] [place] N/A: Spine Lumbar JNJ : ETHICON CARDIOVATIONS [id number] / / Screw 7x35 Poly Si [id number] - [id number] Implanted:Qt y: 2 on 02/22/2012 at [place] [facility] [place] N/A: Spine Lumbar JNJ : ETHICON CARDIOVATIONS [id number] / / Asif 5.5x55 Ti Prbnt [id number] - [id number] Implanted:Qt y: 2 on 02/22/2012 at [place] [facility] [place] N/A: Spine Lumbar JNJ : DEPUY SPINE [id number] / / Screw Set Sng Inner [id number] - [id number] Implanted:Qt y: 4 on 02/22/2012 at [place] [facility] [place] N/A: Spine Lumbar JNJ : DEPUY SPINE [id number] / / Cage 28x8 Leopard [id number] - [id number] Implanted:Qt y: 1 on 02/22/2012 at [place] [facility] [place] N/A: Spine Lumbar JNJ : ETHICON CARDIOVATIONS [id number] / / Implant Brst Mod Cls Pro 360cc - [id number] Implanted:Qt y: 1 on 11/12/2012 at [place] [facility] [place] Right: Breast MENTOR KRISSY 09/11/2017 350-7360 / [id number] / [id number] Implant Brst Mod Cls Pro 360cc - [id number] Implanted:Qt y: 1 on 11/12/2012 at [place] [facility] [place] Left: Breast MENTOR KRISSY 08/12/2017 350-7360 / [id number] / [id number] 4.0 X 14 Variable Self Starting Screw Implanted:Qt y: 4 on 02/05/2020 by Luis Eduardo Ross MD at OR [facility] N/A: Spine Cervical KWADWO [id number] / / 1 Level 20mm Strawn View Plate Implanted:Qt y: 1 on 02/05/2020 by Luis Eduardo Ross MD at OR [facility] N/A: Spine Cervical KWADWO [id number] / / [id number] Alcutian Implanted:Qt y: 1 on 02/05/2020 by Luis Eduardo Ross MD at OR [facility] N/A: Spine Cervical KWADWO [id number] / / Description:alctuian cage 2.5cc Vitoss Bimodal Foam Pack Implanted:Qt y: 1 on 02/05/2020 by Luis Eduardo Ross MD at OR [facility] N/A: Spine Cervical KWADWO [id number] 11/29/2020 4672-3484 / [id number] / [id number] Sling Desara One - [id number] Implanted:Qt y: 1 on 08/31/2022 by Chico Perry MD at OR [facility] N/A: Vagina [employer] 08/10/2023 LEATHA-II3166 / / [id number] Bone Mtrx Vivigen Formble 10cc - [id number] - [id number] Implanted:Qt y: 1 on 06/19/2024 by Joseph Giordano MD at [place] [facility] [place] N/A: Spine Lumbar LIFENET 04/29/2025 BL-1600-003 / [id number] / [id number] Implant Graft Bone Ifact 2.5cc - [id number] Implanted:Qt y: 1 on 06/19/2024 by Joseph Giordano MD at [place] [facility] Spine Lumbar [employer] [id number] 04/03/2026 700-025 / / [id number] Eit/ Plif 13mm 12 Degree 23/11 Implanted:Qt y: 1 on 06/19/2024 by Joseph Giordano MD at [place] [facility] N/A: Spine Lumbar 08/31/2025 [id number] / / [id number] Duragen Plus 1x3 Dp 1013 Min5 - [id number] - [id number] Implanted:Qt y: 1 on 06/19/2024 by Joseph Giordano MD at [place] [facility] N/A: Spine Lumbar [employer] KRISSY [id number] 12/01/2026 [id number] / [id number] / [id number] Screw 6x45 Poly Si [id number] - [id number] Implanted:Qt y: 2 on 06/19/2024 by Joseph Giordano MD at [place] [facility] N/A: Spine Lumbar JNJ : ETHICON CARDIOVATIONS [id number] / / Screw 7x45 Poly Si [id number] - [id number] Implanted:Qt y: 2 on 06/19/2024 by Joseph Giordano MD at [place] [facility] N/A: Spine Lumbar JNJ : ETHICON CARDIOVATIONS [id number] / / Pre Lordosed Asif W Line 45mm - [id number] Implanted:Qt y: 2 on 06/19/2024 by Joseph Giordano MD at [place] [facility] N/A: Spine Lumbar JNJ : DEPUY SPINE [id number] / / Screw Set Sng Inner [id number] - [id number] Implanted:Qt y: 4 on 06/19/2024 by Joseph Giordano MD at [place] [facility] N/A: Spine Lumbar JNJ : ETHICON CARDIOVATIONS [id number] / / Expedium Ti Sfx 5.5 Lat A6 - [id number] Implanted:Qt y: 1 on 06/19/2024 by Joseph Giordano MD at [place] [facility] N/A: Spine Lumbar JNJ : ETHICON CARDIOVATIONS [id number] / / documented as of this encounter [...] and were consensually agreed upon. Care Teams Youth Services Librarian Relationship Specialty Start Date End Date Elida Lance DO [address] [address] PCP - General Family Medicine 05/22/24 documented as of this encounter
--- OUTSIDE RECORDS SUMMARY | 2024-07-19 10:00 | External Medical Summary | Summary of Care ---
Author Name Unknown Organization [facility] Address [address] [facility] [place] [address] Phone [phone] Care Team Providers Care Customer Service Rep Name Role Phone Elida Lance DO Primary Care Provider [phone] Reason for Visit * Reason Onset Date Comments Appointment 07/06/2024 Encounter Details Date Type Department Care Team (Late st Contact Info) Description 07/06/2024 Telephone Care Coordination and Integration [address] [facility] [place] [address] Elida Lance DO [address] [place] [address] Appointment Allergies Active Allergy Reactions Criticality [...] Moderate (to be alternated with oxycodone per [facility] DC instructions 06/30). 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 Max text out to PRACTICE DIRECTOR to have [facility] bring urine specimen cup to patient and then drop specimen off atthe lab to rule out UTI. Will pend order to PCP. Please call patient to schedule hospital discharge appt. Does have transportation issues and uses [facility] transportation, so late morning or early afternoon appts are best. Dr. Perry's office- Patient in need of appt as she is c/o her labia being large and causing pain. If this TE was sent to the wrong pool, please forward to the correct pool. Thank you. Primary CM: Oscar Maradiaga [phone] documented in this encounter Plan of Treatment Upcoming Encounters Date Type Department Care Team (Late st Contact Info) Description 07/09/2024 1:00 PM EDT Telemedicine Medical Pain Management [place] [place] [address] Crystal Betancur CRNP [address] [place] [address] 07/15/2024 2:00 PM EDT Telemedicine Psychiatry, [place] [address] [place] [phone] Brooke Deluca CRNP [address] [place] [address] 07/23/2024 1:00 PM EDT Telemedicine Nutrition Services [place] [address] [place] [address] Jasvir Johnson, RDN [address] [place] [address] 08/06/2024 12:15 PM EDT Office Visit Orthopaedics Spine Surgery, [place] [address] [place] [address] Joseph Giordano MD [address] [place] [address] 10/07/2024 2:40 PM EDT Telemedicine Endocrinology [place] [address] [place] [address] Daniel rFanco MD [address] [place] [address] 10/15/2024 3:30 PM EDT Office Visit Neurology [facility] [place] [address] [place] [address] Mariya Harding PA-C [address] [place] [address] 10/21/2024 12:10 PM EDT Office Visit [facility] [place] [address] [facility] [place] [address] Elida Lance DO [address] [facility] [address] [place], [place] [phone] 02/03/2026 2:20 PM EST Office Visit Dermatology, [address] [place] [address] Yessi Morton PA-C [address] [place] [address] [place] [address] Health Maintenance Due Date Last Done Comments Fecal Occult Blood Test 2006 Sigmoidoscopy 2006 Mammogram 08/09/2017 08/09/2016, 09/2015, 08/05/2014, Additional history exists Pneumococcal Vaccine: 50+ Years (3 of 3 - PCV20 or PCV21) 07/09/2021 07/09/2016, 08/21/2013 Colonoscopy 01/14/2022 01/15/2012, 01/15/2012 COVID-19 Vaccine ( season) 2023 12/08/2020, 11/17/2020 Albumin/Creatinine Ratio 03/21/2024 024, 02/03/2019, 09/05/2017, Additional history exists CKD PHOS USE SMARTSET 64285 10/17/202410/02, 03/16/2022, 02/09/2021, Additional history exists GFR 12/22/2024 06/22/2024, 06/03, 06/20/2024, Additional history exists Cologuard 04/04/2025 04/04/2022, 03/05, 03/27/2022 Colorectal Cancer Screening 04/04/2025 CKD HGB USE SMARTSET 79631 06/22/202506/22, 06/21/2024, 06/20/2024, Additional history exists Depression [...] this encounter Medical Devices Implanted Type Area Tire Recapping Machine Operator Device Identifier Shelf Expiration Date Model / Serial / Lot Graft Infuse Bone Sm [id number] - [id number] Implanted:Qt y: 1 on 02/22/2012 [place] [facility] [place]: Spine Lumbar [employer] : NEUROLOGIC PAIN 08/01/2014 [id number] / / [id number] Screw 6x45 Poly Si [id number] - [id number] Implanted:Qt y: 2 on 02/22/2012 at [place] [facility] [place]A: Spine Lumbar JNJ : [employer]ON [employer] [id number] / / Screw 7x35 Poly Si [id number] - [id number] Implanted:Qt y: 2 on 02/22/2012 at [place] [facility] [place]/A: Spine Lumbar JNJ : ETH[employer]ON [employer]ATIONS [id number] / / Asif 5.5x55 Ti Prbnt [id number] - [id number] Implanted:Qt y: 2 on 02/22/2012 at [place] [facility] [place]/A: Spine Lumbar JNJ : DEPUY SPINE [id number] / / Screw Set Sng Inner [id number] - [id number] Implanted:Qt y: 4 on 02/22/2012 at [place] [facility] [place]/A: Spine Lumbar JNJ : DEPUY SPINE [id number] / / Cage 28x8 Leopard [id number] - [id number] Implanted:Qt y: 1 on 02/22/2012 at [place] [facility] [place] N/A: Spine Lumbar JNJ : ETH[employer]ON [employer] [id number] / / Implant Brst Mod Cls Pro 360 - [id number] Implanted:Qt y: 1 on 11/12/2012 at [place] [facility] [place] Right: Breast MENTOR KRISSY 09/11/2017 [id number] / [id number] / [id number] Implant Brst Mod Cls Pro 360 - [id number] Implanted:Qt y: 1 on 11/12/2012 at [place] [facility] [place] Left: Breast MENTOR KRISSY 08/12/[address] [id number] / [id number] / [id number] 4.0 X 14 Variable Self Starting Screw Implanted:Qt y: 4 on 02/05/2020 by Luis Eduardo Ross MD at OR [facility] N/A: Spine Cervical KWADWO [id number] / / 1 Level 20mm [place] View Plate Implanted:Qt y: 1 on 02/05/2020 by Luis Eduardo Ross MD at OR [facility] N/A: Spine Cervical KWADWO [id number] / / [id number] Alcutian Implanted:Qt y: 1 on 02/05/2020 by Luis Eduardo Ross MD at OR [facility] N/A: Spine Cervical KWADWO [id number] / / Description:alctuian cage 2.5cc Vitoss Bimodal Foam Pack Implanted:Qt y: 1 on 02/05/2020 by Luis Eduardo Ross MD at OR [facility] N/A: Spine Cervical KWADWO [id number] 11/29/2020 1199-0348 / [id number] / [id number] ing [facility] One - [id number] Implanted:Qt y: 1 on 08/31/2022 by Chico Perry MD at OR [facility] N/A: Vagina [employer] 08/10/2023 [id number] / / [id number] Bone Mtrx Vivigen Formble 10cc - [id number] - [id number] Implanted:Qt y: 1 on 06/19/2024 by Joseph Giordano MD at [place] [facility] [place] N/A: Spine Lumbar [employer] 04/29/2025 [id number] / [id number] / [id number] Implant Graft Bone Ifact 2.5cc - [id number] Implanted:Qt y: 1 on 06/19/2024 by Joseph Giordano MD at [place] [facility] [place] Spine Lumbar [employer] [id number] 04/03/2026 700-025 / / [id number] Eit/ Plif 13mm 12 Degree 23/11 Implanted:Qt y: 1 on 06/19/2024 by Joseph Giordano MD at [place] [facility] [place] N/A: Spine Lumbar 08/31/2025 [id number] / / [id number] Duragen Plus 1x3 Dp 1013 Min5 - [id number] - [id number] Implanted:Qt y: 1 on 06/19/2024 by Joseph Giordano MD at [place] [facility] [place] N/A: Spine Lumbar [employer] KRISSY [id number] 12/01/2026 [id number] / [id number] / [id number] Screw 6x45 Poly Si [id number] - [id number] Implanted:Qt y: 2 on 06/19/2024 by Joseph Giordano MD at [place] [facility] [place]/A: Spine Lumbar JNJ : [employer] [id number] / / Screw 7x45 Poly Si [id number] - [id number] Implanted:Qt y: 2 on 06/19/2024 by Joseph Giordano MD at [place] [facility] [place]/A: Spine Lumbar JNJ : [employer] [id number] / / Pre Lordosed Asif W Line 45mm - [id number] Implanted:Qt y: 2 on 06/19/2024 by Joseph Giordano MD at [place] [facility] [place]A: Spine Lumbar JNJ : DEPUY SPINE [id number] / / Screw Set Sng Inner [id number] - [id number] Implanted:Qt y: 4 on 06/19/2024 by Joseph Giordano MD at [place] [facility] [place]/A: Spine Lumbar JNJ : [employer] [id number] / / Expedium Ti Sfx 5.5 Lat A6 - [id number] Implanted:Qt y: 1 on 06/19/2024 by Joseph Giordano MD at [place] [facility] [place]A: Spine Lumbar JNJ : ETH[employer]ON [employer]ATIONS [id number] / / documented as of this encounter [...] and were consensually agreed upon. Care Teams Customer Service Rep Relationship Specialty Start Date End Date Elida Lance DO [address] [place] [address] PCP - General Family Medicine 05/22/24 documented as of this encounter
--- OUTSIDE RECORDS SUMMARY | 2024-07-19 10:02 | External Medical Summary ---
Author Name Unknown Address Unknown Organization K01:[facility] [place] - [address] [facility] [place] [id number] Laboratory Report Ordering Provider Test Date Status ISAK SAUCEDO 07/06/2024 12:26:57 Final <10,000 colonies/ml mixed no rmal dominga Observation Date Value Abnormality Reference (Units ) Status Bacteria identified in Specimen by Culture 07/06/2024 12:26:57 [id number]^ENTEROC OCCUS SPECIES Abnormal Final 10,000 to 100,000 colonies/m L Enterococcus species Performing Location [facility] [place] - [address] [place] [id number] Ordering Provider Test Date Status ISAK SAUCEDO 07/06/2024 12:26:57 Final Observation Date Value Abnormality Reference (Units ) Status Ampicillin 07/06/2024 12:26:57 <=2 Susceptible Final Nitrofurantoin susceptibility 07/06/2024 12:26:57 <=16 Susceptible Final Tetracyclinesusceptibility 07/06/2024 12:26:57 <=1 Susceptible Final Vancomycinsusceptibility 07/06/2024 12:26:57 1 Susceptible Final Test: Culture, Urine, Quanti tative
Specimen Source: Urine, Clean Catch
Specimen Type: Urine
Specimen Date: 07/06/2024 1226
Result Date: 07/09/2024 1328
Result Status: Final result
Abnormal: Yes
Resulting Lab: [facility]
[address] [facility]
[place] [id number]

CULTURE

10,000 to 100,000 colonies/mL Enterococcus species (Abnormal)

<10,000 colonies/ml mixed normal dominga

SUSCEPTIBILITY

Enterococcus
species
METHOD MICROBROTH
DILUTIONS

AMPICILLIN <=2 Susceptible
NITROFURANTOIN <=16 Susceptible
TETRACYCLINE <=1 Susceptible
VANCOMYCIN 1 Susceptible

null Performing Location [facility] [place] - [address] [facility] [address]
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
[2024-07-19] MEDS: SODIUM CHLORIDE 0.9% 1,000 ML IV ONE ×2 (10:10→11:15)
[2024-07-19 10:24] LABS: Basophils # (auto) 0.03 K/uL (0.00-0.20); Basophils % (auto) 0.5 %; Eosinophils # (auto) 0.12 K/uL (0.00-0.50); Eosinophils % (auto) 2.1 %; Hematocrit (blood only) 38.2 % (37.0-47.0); Hemoglobin 12.6 g/dl (12.0-16.0); Immature Granulocytes # (auto) 0.02 K/uL (0.01-0.20); Immature Granulocytes % (auto) 0.3 %; Lymphocytes # (auto) 1.26 K/uL (1.20-3.40); Mean Corpuscular Hemoglobin 31.2 pg (25.0-34.0); Mean Corpuscular Volume 94.6 fL (80.0-100.0); Mean Platelet Volume 9.4 fL (9.4-12.4); Monocytes # (auto) 0.29 K/uL (0.11-0.59); Monocytes % (auto) 5.1 %; Neutrophils # (auto) 4.01 K/uL (1.40-6.50); Platelet Count 258 K/uL (130-400); RDW Coefficient of Variation 13.2 % (11.5-14.5); RDW Standard Deviation 46.3 fL (36.4-46.3); Red Blood Count 4.04 M/uL (4.20-5.40); White Blood Count 5.73 K/ul (4.8-10.8)
[2024-07-19 10:30] LABS: Prothrombin Time 10.9 Seconds (9.0-12.0)
[2024-07-19 10:44] LABS: Albumin Level 4.1 gm/dl (3.4-5.0); BUN Creatinine Ratio 16.3 (10-20); Bilirubin,Total 0.4 mg/dl (0.2-1.0); Calcium 10.5 mg/dl (8.6-10.3); Creatinine Clr Calc Pharmacy 44.3 ml/min; Magnesium 2.1 mg/dl (1.7-2.4); Potassium 4.1 mmol/L (3.5-5.1); Total Protein 8.1 gm/dl (6.0-8.3)
[2024-07-19 10:50] LABS: Troponin I High Sensitivity 5.2 pg/ml (0-14)
[2024-07-19 11:00] LABS: Influenza A virus by PCR Negative (Neg); Influenza B virus by PCR Negative (Neg); RSV by PCR Negative (Neg); SARS CoV2 RNA(COVID-19) Ceph NEGATIVE (Negative)
[2024-07-19] MEDS: OPTIRAY 320 100ml IV ONE (11:38)
--- NOTE | 2024-07-19 12:07 | CT Scan Report ---
ABDOMEN AND PELVIS CT WITH IV CONTRAST CT DOSE: 527.73 mGy.cm HISTORY: Acute right lower quadrant abdominal pain with nausea and vomiting RLQ abd pain; vomiting TECHNIQUE: Multiaxial CT images of the abdomen and pelvis were performed following the IV administrat ion of 94 cc of Optiray, A dose lowering technique was utilized adhering to the principles of ALARA. COMPARISON STUDY: 02/06/2022 FINDINGS: Partially imaged breast implants. Coronary artery calcifications. Clear lung bases. No pneu matosis or peritoneal. Unremarkable spleen, pancreas and adrenal glands. Unremarkable liver and gallb ladder. Patent portal vein. Renal cysts measure up to approximately 6 cm on the left. No hydronephros is. Unremarkable urinary bladder. Atherosclerosis of the aorta and branch vessels. No lymphadenopathy . Moderate colonic fecal retention. There is no bowel obstruction or bowel wall thickening. Noninflamed appendix. [id number]. Degenerative and postoperative changes of the spine. No acute fracture i dentified. T12 compression deformity with retropulsion is unchanged. IMPRESSION: 1. No acute intra-abdominal or intrapelvic abnormality. 2. Normal appendix. 3. Moderate colonic fecal retention. 4. Chronic findings as above. ACT 112: Negative or not required by law. The above report was generated using voice recognition software. It may contain grammatical, syntax o r spelling errors. Electronically signed by: Casey Bartlett M.D. 07/19/2024 12:04 PM
[2024-07-19] MEDS ORDERED: ALUMINUM/MAGNESIUM SUSP 30 ML UDC PO PRN (13:32)
[2024-07-19] MEDS ORDERED: ACETAMINOPHEN 325 MG TAB PO PRN (13:32)
[2024-07-19] MEDS ORDERED: MELATONIN 3 MG TAB PO PRN (13:32)
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
--- NOTE | 2024-07-19 14:07 | Electrocardiogram Report ---
Test Reason : Blood Pressure : */* mmHG Vent. Rate : 71 BPM Atrial Rate : 71 BPM P-R Int : 140 ms QRS Dur : 80 ms QT Int : 382 ms P-R-T Axes : 43 14 56 degrees QTcB Int : 415 ms Normal sinus rhythm Normal ECG When compared with ECG of 07-Jul-2024 18:22, No significant change was found Confirmed by Chuy Gee ([id number]) on 07/19/2024 2:07:10 PM Referred By: REFERRED SELF Confirmed By: Chuy Gee
[2024-07-19 14:51] LABS: Appearance Urine Clear (Clear); Bacteria Urine Automated None Seen (None Seen); Bilirubin Urine Negative (Negative); Blood Urine Negative (Negative); Cast Urine Automated 0-2 /lpf (0-2); Color Urine Yellow; Epithelial Cell Urine Auto 0-2 /hpf (0-2); Glucose Urine UA Negative (Negative); Ketones Urine 3+ (Negative); Leukocyte Esterase Urine 1+ (Negative); Nitrite Urine Negative (Negative); Protein Urine Negative (Negative); RBC Urine Automated 0-2 /hpf (0-2); Specific Gravity Urine > 1.045 (1.000-1.030); Urobilinogen Urine Negative (Negative); WBC Urine Automated 21-50 /hpf (0-5); pH Urine 5.5 (4.5-7.5)
[2024-07-19] MEDS ORDERED: CALCIUM CITRATE VITAMIN D3 PO SCH (15:16)
[2024-07-19] MEDS ORDERED: oxyCODONE HCL IR 5 MG TAB (IMMEDIATE RELEASE) PO PRN (15:16)
[2024-07-19] MEDS ORDERED: ONDANSETRON 4 MG OD TAB PO PRN (15:16)
[2024-07-19] MEDS: SODIUM CHLORIDE 0.9% 1,000 ML IV SCH (15:51)
[2024-07-19] MEDS: POLYETHYLENE (MIRALAX) 17 GM PACK PO ONE (15:54)
[2024-07-19] MEDS: ENOXAPARIN INJ 40 MG/0.4 ML SYR SQ ONE (16:01)
[2024-07-19] MEDS: METHYLNALTREXONE BROMIDE 12 MG/0.6 ML VIAL SQ SCH (16:06)
[2024-07-19] MEDS: ONDANSETRON INJ 2 MG/ML 2 ML VIAL IV PRN (19:27)
[2024-07-19] MEDS: buPROPion HCl 100 MG TABLET PO SCH (20:46)
[2024-07-19] MEDS: PRIMIDONE 50 MG TAB PO SCH (20:47)
[2024-07-19] MEDS: METOPROLOL TARTRATE 25 MG TAB PO SCH (20:47)
[2024-07-19] MEDS: traZODone HCL 50 MG TAB PO SCH (20:48)
[2024-07-20] MEDS: OXYBUTYNIN CHLORIDE XL 5 MG TABCR PO SCH (08:26)
[2024-07-20] MEDS: lisinopril 2.5 MG TAB PO SCH (08:26)
[2024-07-20] MEDS: VORTIOXETINE HYDROBROMIDE 20 MG TAB PO SCH (08:27)
[2024-07-20] MEDS: MULTIVITAMIN TAB PO SCH (08:27)
[2024-07-20] MEDS: FERROUS SULFATE 325 MG TAB PO SCH (08:27)
[2024-07-20] MEDS: POLYETHYLENE (MIRALAX) 17 GM PACK PO SCH (08:29)
[2024-07-20] MEDS ORDERED: NON-FORMULARY MEDICATION (Cranberry Fruit Concentrate [Azo Cranberry] 250 mg Tablet,Chewab PO SCH (09:00)
[2024-07-20] MEDS: POTASSIUM CHLORIDE 10 MEQ TABCR PO SCH (09:29)
--- NOTE | 2024-07-20 11:06 | Hospitalist Progress Note ---
Date of Service July 20, 2024 Assessment & Plan (1) Chronic nausea: (2) Post gastrectomy syndrome: (3) Constipation by delayed colonic transit: (4) Generalized anxiety disorder: Plan Patient with longstanding history of nausea, vomiting and postgastrectomy syndrome presents with exacerbation of her chronic nausea with emesis. Patient has been under a fair amount of medical issues recently. Recent back injury and surgery. Reviewed outpatient psychiatric notations, patient requesting psych consult here. Suspect and concerned that her patient's mental health may be contributing some of her somatic complaints CT scan shows a fair amount of fecal material in the colon. Suspect she is having liquid stools leaking around the solids. She states she cannot tolerate the MiraLAX. Will try some Dulcolax orally Consult GI for patient's chronic nausea, may benefit from endoscopy and further recommendations from GI perspective Monitor electrolytes and renal function in a.m. Encourage activity Maintain liquid diet at this time. Admission and Anticipated Discharge Date Admission Date: July 19, 2024 Subjective Patient reports persistent nausea and vomiting. Seems as though she has had these symptoms intermittently for at least for 5 years. Has not had an EGD for at least a few years. Is having liquid stool but no solid stool. Physical Exam Physical Exam: Constitutional: Alert, nontoxic HEENT: Mucous membranes moist. Lungs: Decreased breath sounds, no wheezes CV: S1-S2, regular Abdomen: Soft, minimal tenderness nondistended Extremities: No significant edema Neuro: No focal deficits Psych: Cooperative, depressed mood, anxious Results & Data Results & Data Vital Signs (Past 12 Hours) Vital Signs Temp Pulse Resp BP Pulse Ox O2 Del Method 07/20/24 07:42 36.6 C 63 18 120/81 96 Room Air Diagnostic Findings Reviewed imaging, laboratory and diagnostic studies. Pertinent findings as below. Reviewed outside EMR, last EGD was in 2021. No recent outpatient GI notes in outside EMR
[2024-07-20] MEDS: bisacodyL 5 MG TABEC PO SCH (11:32)
[2024-07-20] MEDS: METOCLOPRAMIDE HCL INJ 5 MG/ML 2 ML VIAL IV ONE (11:32)
--- NOTE | 2024-07-20 12:06 | Gastrointestinal Consultation ---
Date of Consultation July 20, 2024 Assessment & Plan (1) Nausea & vomiting: Plan Patient has a history of on and off nausea/vomiting that has been ongoing for several years. Most recently, her episode seems to coincide with having back surgery and she admits this is lasting longer than normal for her. Imaging is suggestive of moderate fecal retention which may be a contributing factor. - start protonix 40mg bid. - can use zofran 4mg every 6 hours as needed. - continue with dulcolax 10mg daily. - she tells me she does not tolerate miralax. May benefit from lactulose if not helped with dulcolax. - will discuss case further with Dr. Presley, further recommendations to follow. Supervising Physician Co-Signing Physician Notes Persistent nausea vomiting since back surgery. Post back surgery she was placed on baclofen and codeine. She took codeine up to 4 to 5 days ago. Patient had a similar episode 4 years ago after a colon preparation which resolved and prolonged nausea and vomiting. Between these episodes sounds like she is reasonably well. She said gastric bypass though she denies issues with eating and vomiting between these 2 distinct episodes. States she does not occasionally get nauseous that would last the most of the day or so. Endo for her previous bout did not show problems with her gastric pouch. At this point I believe this is narcotic induced nausea and vomiting. She may have a underlying cyclic vomiting disorder. At this point I would recommend conservative management remain away from narcotics. Continue antinauseants. Expect symptoms to settle over the next few days. If there is persistent course we could consider an EGD to exclude obstruction of her pouch from anastomotic stricture. However again I would have expected to her have ongoing continued s ymptoms between these 2 distinct episodes. Patient agreeable with plan as outlined above History of Present Illness Reason for Consultation: persistent nausea/vomiting, history of gastric bypass, evaluate for EGD. Requesting Physician: Mendez Jones DO Attending Physician: Mendez Jones DO History of Present Illness Patient is a 64 year old female with a past medical history of HTN, HLD, chronic rhinitis, post gastric surgery syndrome, B12 malabsorption s/p gastric bypass, recurrent nausea and vomiting on chronic Zofran PRN, lumbar DDD, cervical DDD s/p cervical spinal fusion, lumbar spinal stenosis, memory changes, depression, CKD stage III, MEYER, KATE and GERD who presents with refractory nausea and vomiting. She admits that she has had issues off and on with nausea and vomiting for years. Her last episode was in the summer of 2023. Usually these episodes will only last for one or two days. Last month, she underwent surgery on her back and it was after this that her current episode of symptoms started. She notes that since that time she has had a hard time with oral intake. She admits to some acid reflux, but well controlled on medication when needed. She has also noticed a change in her bowels. She typically moves her bowels once daily but lately has been having 4-6 smaller bowel movements. she tells me that she cannot tolerate miralax due to th e taste. The remainder of the GI ROS were unremarkable. She reports an EGD done through [facility] in the past few years for similar issues, but tells me it was unremarkable. She refuses colonoscopy as she tells me she could not tolerate prep in the past. She had CT A/P 07/19/24 showing No acute intra-abdominal or intrapelvic abnormality. But there was moderate colonic fecal retention. Allergies Allergy/AdvReac Type Severity Reaction Status Date / Time 2-octyl cyanoacrylate Allergy Intermediate DERMABOND-R Verified 07/19/24 12:28 [octyl 2-cyanoacrylate] HODA Penicillins Allergy Unknown Unknown Verified 07/19/24 12:28 Sulfa (Sulfonamide Allergy Unknown Unknown Verified 07/19/24 12:28 Antibiotics) NSAIDS (Non-Steroidal AdvReac Intermediate due to Verified 07/19/24 12:28 Anti-Inflamma gastric bypass Home Medications Medication Instructions Recorded Confirmed Type multivitamin 1 tab PO QAM 03/30/18 07/19/24 History potassium chloride 10 mEq 10 meq PO QAM 03/30/18 07/19/24 History tablet,extended release primidone 50 mg tablet 25 mg PO BID 03/29/21 07/19/24 History calcium 250 mg (as 2 tab PO TID 12/12/21 07/19/24 History citrate)-vitamin D3 5 mcg (200 unit) tablet ferrous sulfate 325 mg (65 mg 325 mg PO DAILY 12/12/21 07/19/24 History iron) tablet (Iron (ferrous sulfate)) alendronate 70 mg tablet 70 mg PO WK 06/26/24 07/19/24 History bupropion HCl 100 mg tablet 100 mg PO BID 06/26/24 07/19/24 History cranberry fruit concentrate 250 mg 250 mg PO QAM 06/26/24 07/19/24 History chewable tablet (Azo Cranberry) metoprolol tartrate 25 mg tablet 12.5 mg PO BID 06/26/24 07/19/24 History oxybutynin chloride 15 mg 30 mg PO QAM 06/26/24 07/19/24 History tablet,extended release 24 hr baclofen 10 mg tablet 5 mg (1/2 x 10 mg) PO TID PRN 06/30/24 07/19/24 Rx muscle spasm #14 tabs ondansetron 4 mg disintegrating 4 mg translingual Q8H PRN 07/07/24 07/19/24 History tablet NAUSEA/VOMITING oxycodone 5 mg tablet 5 mg PO Q4H PRN Pain 07/07/24 07/19/24 History lisinopril 2.5 mg tablet 1.25 mg PO DAILY 07/19/24 07/19/24 History trazodone 150 mg tablet 150 mg PO HS 07/19/24 07/19/24 History vortioxetine 20 mg tablet 20 mg PO QAM 07/19/24 07/19/24 History (Trintellix) Patient History Medical History HLD (hyperlipidemia) HTN (hypertension) Surgical History History of gastric bypass Family History Other No pertinent family history Social History Smoking Status: Former smoker Tobacco Type: Cigarettes Second Hand Exposure: No; Do You Dip or Chew Tobacco: No; Hx Alcohol Use: No Hx Substance Use: Yes Last Used Substance: Days (ago) Last Used Substance Other:: 7 days ago. Vape. 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: No Beliefs That Will Affect Care: None Current Living Situation: Alone Other Information That Helps Us Care for You: No (Gastric bypass surgery 2002) Feels Safe at Home: Yes Safety Concerns: Feels Safe At This Time Assistive Devices: Walker Review of Systems Review of Systems: All systems reviewed & are unremarkable except as noted in HPI & below Physical Exam Constitutional: WD/WN, vitals as above Respiratory: normal respiratory effort, lungs clear to auscultation Cardiovascular: Rate/Rhythm: regular rate and regular rhythm Gastrointestinal (Abdomen): normal bowel sounds, soft, nontender, no hepatosplenomegaly Psychiatric: Orientation: alert and oriented x 3 Affect: euthymic affect Results & Data Vital Signs (Past 12 Hours) Vital Signs Temp Pulse Resp BP Pulse Ox O2 Del Method 07/20/24 07:42 97.9 F 63 18 120/81 96 Room Air Coding Level of Care Code 54376 INT INP/OBS CARE 2/55MIN Diagnoses Nausea & vomiting R11.2
[2024-07-20] MEDS: PANTOprazole 40 MG TAB PO SCH (13:29)
[2024-07-20] MEDS: BACLOFEN 10 MG TAB PO PRN (13:33)
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
[2024-07-20] MEDS: ENOXAPARIN INJ 40 MG/0.4 ML SYR SQ SCH (15:24)
[2024-07-20] MEDS: ARIPiprazole 5 MG TAB PO SCH (20:40)
[2024-07-21 08:13] LABS: BUN Creatinine Ratio 5.8 (10-20); Calcium 7.5 mg/dl (8.6-10.3); Magnesium 1.8 mg/dl (1.7-2.4); Potassium 3.7 mmol/L (3.5-5.1)
[2024-07-21] MEDS: buPROPion HCl 100 MG TABLET PO SCH (08:26)
--- NOTE | 2024-07-21 10:25 | Gastroenterology Progress Note ---
Date of Service July 21, 2024 Assessment & Plan (1) Nausea & vomiting: Plan Patient has had ongoing symptoms, but reports new calf pain in her right leg along with swelling. Given her recent surgery, there is some concern for possible DVT. I reached out to the primary team and they are going to consider US to assess. - would put a hold on EGD for now until she has US to r/o possible DVT. Will await results of US. - continue with antiemetics. - continue with protonix 40mg bid. Admission and Anticipated Discharge Date Admission Date: July 19, 2024 Subjective Patient is still having nausea. no emesis. she has been able to tolerate her liquid diet but is requesting clears. she would like to proceed with an EGD to further evaluate. she notes that she is having new right calf pain and swelling in her feet which is new for her. Review of Systems Review of Systems: All systems reviewed & are unremarkable except as noted in HPI & below Physical Exam Constitutional: WD/WN, vitals as above Respiratory: normal respiratory effort, lungs clear to auscultation Cardiovascular: Rate/Rhythm: regular rate and regular rhythm Gastrointestinal (Abdomen): normal bowel sounds, soft, nontender, no hepatosplenomegaly Psychiatric: Orientation: alert and oriented x 3 Results & Data Results & Data Vital Signs (Past 12 Hours) Vital Signs Temp Pulse Resp BP Pulse Ox O2 Del Method 07/21/24 07:56 98.2 F 62 18 149/89 H 99 Room Air Coding Level of Care Code 62200 SUB INP/OBS CARE 2/35MIN Diagnoses Nausea & vomiting R11.2
--- NOTE | 2024-07-21 14:05 | Ultrasound Report ---
BILATERAL LOWER EXTREMITY VENOUS DOPPLER HISTORY: R/O DVT COMPARISON STUDY: 06/04/2021 FINDINGS: No evidence of DVT seen of bilateral lower extremities. IMPRESSION: No DVT seen at the lower extremities. ACT 112: Negative or not required by law. Electronically signed by: Joseph Davila M.D. 07/21/2024 2:03 PM
--- NOTE | 2024-07-21 14:22 | Hospitalist Progress Note ---
Date of Service July 21, 2024 Assessment & Plan (1) Chronic nausea: Plan: Remote history of gastric bypass Has been complaining of ongoing nausea and vomiting which is worse recently Could be secondary to post gastrectomy syndrome No significant weight loss Appreciate GI input and recommendation Clinically better today and has been tolerating clears and diet will be advanced (2) Post gastrectomy syndrome: (3) Constipation by delayed colonic transit: (4) Generalized anxiety disorder: Plan: Has significant major depressive disorder with recurrent episodes Appreciate psychiatrist input and recommendation Bupropion 200 mg every morning and will DC nightly dose, vortioxetine 20 mg at bedtime, start Abilify 2.5 mg at bedtime and continue trazodone 50 mg at night (5) Nausea & vomiting: (6) History of lumbar surgery: Plan: Recent lumbar spinal surgery at [facility] on 06/19/2024 Has chronic back pain and also had Cervical spinal fusion in the past Pain seems to be under control now (7) MDD (major depressive disorder), recurrent episode, severe: Plan Notes from the prior hospitalist: Patient with longstanding history of nausea, vomiting and postgastrectomy syndrome presents with exacerbation of her chronic nausea with emesis. Patient has been under a fair amount of medical issues recently. Recent back injury and surgery. Reviewed outpatient psychiatric notations, patient requesting psych consult here. Suspect and concerned that her patient's mental health may be contributing some of her somatic complaints CT scan shows a fair amount of fecal material in the colon. Suspect she is having liquid stools leaking around the solids. She states she cannot tolerate the MiraLAX. Will try some Dulcolax orally Consult GI for patient's chronic nausea, may benefit from endoscopy and further recommendations from GI perspective Monitor electrolytes and renal function in a.m. Encourage activity Maintain liquid diet at this time. Admission and Anticipated Discharge Date Admission Date: July 19, 2024 Subjective 07/21/2024 The patient was seen and examined in medical floor She continues to have nausea and vomiting without any abdominal pain or distention Has been tolerating clears and that will be advanced Noted to have some swelling of the right leg Review of Systems Review of Systems: All systems reviewed and are unremarkable except as noted below Physical Exam Physical Exam: Lying in bed without any acute distress Constitutional: + ill appearing and average body habitus Eyes: PERRL, conjunctivae normal, anicteric sclerae ENMT: external ear and nose normal, oropharynx normal Neck: trachea midline, no thyromegaly Respiratory: no respiratory distress Auscultation: lungs clear to auscultation bilaterally Cardiovascular: Rate/Rhythm: regular rate and regular rhythm; not tachycardic Heart Sounds: normal S1 and normal S2; no murmur Gastrointestinal (Abdomen): Inspection/Auscultation: normal bowel sounds; abdomen not distended Percussion/Palpation: abdomen soft; abdomen nontender Musculoskeletal: No acute arthritis involving any of the joint Neurologic: normal touch/pain/proprioception and moves all extremities; no focal motor deficits Lymphatic: no cervical or axillary lymphadenopathy Results & Data Results & Data Vital Signs (Past 12 Hours) Vital Signs Temp Pulse Resp BP Pulse Ox O2 Del Method 07/21/24 07:56 36.8 C 62 18 149/89 H 99 Room Air Laboratory Results [facility] 07/21/24 06:37 Sodium 140 Potassium 3.7 Chloride 110 H Carbon Dioxide 21 BUN 4 L Creatinine 0.69 Glucose 66 L Calcium 7.5 L D Medications Administered Current Inpatient Medications Acetaminophen (Acetaminophen 325 Mg Tab) 650 mg PO Q4H PRN PRN Reason: pain/fever Stop: 08/18/24 13:31 Al Hydrox/Mg Hydrox/Simethicone (Aluminum/Magnesium Susp 30 Ml Udc) 30 ml PO Q6H PRN PRN Reason: Dyspepsia Stop: 08/18/24 13:31 Aripiprazole (Aripiprazole 5 Mg Tab) 2.5 mg PO HS CHLOÉ Stop: 08/19/24 20:59 Last Admin: 07/20/24 20:40 Dose: 2.5 mg Baclofen (Baclofen 10 Mg Tab) 5 mg PO TID PRN PRN Reason: muscle spasm Stop: 08/18/24 15:15 Last Admin: 07/20/24 13:33 Dose: 5 mg Bisacodyl (Bisacodyl 5 Mg Tabec) 10 mg PO DAILY CHLOÉ Stop: 08/19/24 10:59 Last Admin: 07/21/24 08:39 Dose: 10 mg Bupropion HCl (Bupropion Hcl 100 Mg Tablet) 100 mg PO DAILY CHLOÉ Stop: 08/20/24 08:59 Last Admin: 07/21/24 08:26 Dose: 100 mg Enoxaparin Sodium (Enoxaparin Inj 40 Mg/0.4 Ml Syr) 40 mg SQ Q24H CHLOÉ Stop: 08/19/24 13:59 Last Admin: 07/20/24 15:24 Dose: 40 mg Ferrous Sulfate (Ferrous Sulfate 325 Mg Tab) 325 mg PO DAILY CHLOÉ Stop: 08/19/24 08:59 Last Admin: 07/21/24 08:27 Dose: 325 mg Sodium Chloride (Nss) 1,000 mls @ 100 mls/hr IV .Q10H CHLOÉ Stop: 07/22/24 13:44 Last Admin: 07/21/24 12:38 Dose: 100 mls/hr Lisinopril (Lisinopril 2.5 Mg Tab) 1.25 mg PO DAILY CHLOÉ Stop: 08/19/24 08:59 Last Admin: 07/21/24 08:27 Dose: 1.25 mg Melatonin (Melatonin 3 Mg Tab) 3 mg PO HS PRN PRN Reason: Insomnia Stop: 08/18/24 13:31 Methylnaltrexone [place] (Methylnaltrexone [place] 12 Mg/0.6 Ml Vial) 12 mg SQ Q2D CHLOÉ Stop: 08/18/24 14:59 Last Admin: 07/19/24 16:06 Dose: 12 mg Metoprolol Tartrate (Metoprolol Tartrate 25 Mg Tab) 12.5 mg PO BID CHLOÉ Stop: 08/18/24 20:59 Last Admin: 07/21/24 08:27 Dose: 12.5 mg Multivitamins (Multivitamin Tab) 1 tab PO QAM CHLOÉ Stop: 08/19/24 08:59 Last Admin: 07/21/24 08:28 Dose: 1 tab Ondansetron HCl (Ondansetron Inj 2 Mg/Ml 2 Ml Vial) 4 mg IV Q6H PRN PRN Reason: Nausea Stop: 08/18/24 13:31 Last Admin: 07/21/24 07:27 Dose: 4 mg Oxybutynin Chloride (Oxybutynin Chloride Xl 5 Mg Tabcr) 30 mg PO QAM [facility] Stop: 08/19/24 08:59 Last Admin: 07/21/24 09:11 Dose: 30 mg Oxycodone HCl (Oxycodone Hcl Ir 5 Mg Tab (Immediate Release)) 5 mg PO Q4H PRN PRN Reason: Pain Stop: 08/02/24 15:15 Pantoprazole Sodium (Pantoprazole 40 Mg Tab) 40 mg PO BID CHLOÉ Stop: 08/19/24 12:29 Last Admin: 07/21/24 08:27 Dose: 40 mg Potassium Chloride (Potassium Chloride 10 Meq Tabcr) 10 meq PO QAM CHLOÉ Stop: 08/19/24 08:59 Last Admin: 07/21/24 08:39 Dose: 10 meq Primidone (Primidone 50 Mg Tab) 25 mg PO BID CHLOÉ Stop: 08/18/24 20:59 Last Admin: 07/21/24 08:28 Dose: 25 mg Trazodone HCl (Trazodone Hcl 50 Mg Tab) 150 mg PO HS CHLOÉ Stop: 08/18/24 20:59 Last Admin: 07/20/24 20:39 Dose: 150 mg Vortioxetine (Vortioxetine Hydrobromide 20 Mg Tab) 20 mg PO [facility] Stop: 08/20/24 20:59
[2024-07-21] MEDS: VORTIOXETINE HYDROBROMIDE 20 MG TAB PO SCH (21:10)
[2024-07-22 07:13] LABS: Basophils # (auto) 0.02 K/uL (0.00-0.20); Basophils % (auto) 0.4 %; Eosinophils % (auto) 4.4 %; Hematocrit (blood only) 28.6 % (37.0-47.0); Hemoglobin 9.4 g/dl (12.0-16.0); Immature Granulocytes # (auto) 0.01 K/uL (0.01-0.20); Immature Granulocytes % (auto) 0.2 %; Lymphocytes # (auto) 1.27 K/uL (1.20-3.40); Lymphocytes % (auto) 28.1 %; Mean Corpuscular Hgb Conc 32.9 g/dL (32.0-36.0); Mean Corpuscular Volume 94.4 fL (80.0-100.0); Mean Platelet Volume 9.6 fL (9.4-12.4); Monocytes # (auto) 0.33 K/uL (0.11-0.59); Monocytes % (auto) 7.3 %; Neutrophils # (auto) 2.69 K/uL (1.40-6.50); Neutrophils % (auto) 59.6 %; Platelet Count 160 K/uL (130-400); RDW Coefficient of Variation 13.7 % (11.5-14.5); Red Blood Count 3.03 M/uL (4.20-5.40); White Blood Count 4.52 K/ul (4.8-10.8)
[2024-07-22 07:41] LABS: BUN Creatinine Ratio 4.4 (10-20); Calcium 7.7 mg/dl (8.6-10.3); Creatinine Clr Calc Pharmacy 63.9 ml/min; Potassium 3.7 mmol/L (3.5-5.1)
--- NOTE | 2024-07-22 08:54 | Anesthesiology Consultation ---
Date of Service July 22, 2024 Assessment & Plan (1) Encounter for pre-operative examination: Chart Review Chart Review: Acceptable Risk for Surgery and Patient NOT seen in Pre Admission Testing Consults Requested none History Surgery Operation Date: 07/22/24 16:30 Proposed Procedures p Esophagogastroduodenoscopy Dr. Fernandez Presley MD Height/Weight Height: 5 ft 1 in Weight: 54.3 kg Allergies Allergy/AdvReac Type Severity Reaction Status Date / Time 2-octyl cyanoacrylate Allergy Intermediate DERMABOND-R Verified 07/19/24 12:28 [octyl 2-cyanoacrylate] HODA Penicillins Allergy Unknown Unknown Verified 07/19/24 12:28 Sulfa (Sulfonamide Allergy Unknown Unknown Verified 07/19/24 12:28 Antibiotics) NSAIDS (Non-Steroidal AdvReac Intermediate due to Verified 07/19/24 12:28 Anti-Inflamma gastric bypass Medications Home Medications Medication Instructions Recorded Confirmed Last Taken multivitamin 1 tab PO QAM 03/30/18 07/19/24 07/18/24 potassium chloride 10 mEq 10 meq PO QAM 03/30/18 07/19/24 07/18/24 tablet,extended release primidone 50 mg tablet 25 mg PO BID 03/29/21 07/19/24 07/18/24 calcium 250 mg (as 2 tab PO TID 12/12/21 07/19/24 07/18/24 citrate)-vitamin D3 5 mcg (200 unit) tablet ferrous sulfate 325 mg (65 mg 325 mg PO DAILY 12/12/21 07/19/24 07/18/24 iron) tablet (Iron (ferrous sulfate)) alendronate 70 mg tablet 70 mg PO WK 06/26/24 07/19/24 07/12/24 bupropion HCl 100 mg tablet 100 mg PO BID 06/26/24 07/19/24 07/18/24 cranberry fruit concentrate 250 mg 250 mg PO QAM 06/26/24 07/19/24 07/18/24 chewable tablet (Azo Cranberry) metoprolol tartrate 25 mg tablet 12.5 mg PO BID 06/26/24 07/19/24 07/18/24 oxybutynin chloride 15 mg 30 mg PO QAM 06/26/24 07/19/24 07/18/24 tablet,extended release 24 hr baclofen 10 mg tablet 5 mg (1/2 x 10 mg) PO TID PRN 06/30/24 07/19/24 Unknown muscle spasm #14 tabs ondansetron 4 mg disintegrating 4 mg translingual Q8H PRN 07/07/24 07/19/24 Unknown tablet NAUSEA/VOMITING oxycodone 5 mg tablet 5 mg PO Q4H PRN Pain 07/07/24 07/19/24 Unknown lisinopril 2.5 mg tablet 1.25 mg PO DAILY 07/19/24 07/19/24 07/18/24 trazodone 150 mg tablet 150 mg PO HS 07/19/24 07/19/24 07/18/24 vortioxetine 20 mg tablet 20 mg PO QAM 07/19/24 07/19/24 07/18/24 (Trintellix) Active Medications Generic Name Dose Route Start Last Admin Trade Name Freq PRN Reason Stop Dose Admin Aripiprazole 2.5 mg 07/20/24 21:00 07/21/24 21:10 Aripiprazole 5 Mg Tab PO 08/19/24 20:59 2.5 mg HS CHLOÉ Administration Baclofen 5 mg 07/19/24 15:16 07/20/24 13:33 Baclofen 10 Mg Tab PO 08/18/24 15:15 5 mg TID PRN Administration muscle spasm Bisacodyl 10 mg 07/20/24 11:00 07/22/24 08:52 Bisacodyl 5 Mg Tabec PO 08/19/24 10:59 Not Given DAILY CHLOÉ Bupropion HCl 100 mg 07/21/24 09:00 07/21/24 08:26 Bupropion Hcl 100 Mg Tablet PO 08/20/24 08:59 100 mg DAILY CHLOÉ Administration Enoxaparin Sodium 40 mg 07/20/24 14:00 07/21/24 15:10 Enoxaparin Inj 40 Mg/0.4 Ml Syr SQ 08/19/24 13:59 40 mg Q24H CHLOÉ Administration Ferrous Sulfate 325 mg 07/20/24 09:00 07/22/24 08:53 Ferrous Sulfate 325 Mg Tab PO 08/19/24 08:59 325 mg DAILY CHLOÉ Administration Sodium Chloride 1,000 mls @ 100 mls/hr 07/19/24 13:45 07/21/24 21:10 Nss IV 07/22/24 13:44 100 mls/hr .Q10H CHLOÉ Administration Lisinopril 1.25 mg 07/20/24 09:00 07/22/24 08:52 Lisinopril 2.5 Mg Tab PO 08/19/24 08:59 1.25 mg DAILY CHLOÉ Administration Methylnaltrexone [place] 12 mg 07/19/24 15:00 07/21/24 15:09 Methylnaltrexone [place] 12 Mg/0.6 Ml Vial SQ 08/18/24 14:59 12 mg Q2D CHLOÉ Administration Metoprolol Tartrate 12.5 mg 07/19/24 21:00 07/22/24 08:52 Metoprolol Tartrate 25 Mg Tab PO 08/18/24 20:59 12.5 mg BID CHLOÉ Administration Multivitamins 1 tab 07/20/24 09:00 07/22/24 08:52 Multivitamin Tab PO 08/19/24 08:59 1 tab QAM CHLOÉ Administration Ondansetron HCl 4 mg 07/19/24 13:32 07/22/24 07:22 Ondansetron Inj 2 Mg/Ml 2 Ml Vial IV 08/18/24 13:31 4 mg Q6H PRN Administration Nausea Oxybutynin Chloride 30 mg 07/20/24 09:00 07/22/24 08:52 Oxybutynin Chloride Xl 5 Mg Tabcr PO 08/19/24 08:59 30 mg QAM CHLOÉ Administration Pantoprazole Sodium 40 mg 07/20/24 12:30 07/22/24 08:52 Pantoprazole 40 Mg Tab PO 08/19/24 12:29 40 mg BID CHLOÉ Administration Potassium Chloride 10 meq 07/20/24 09:00 07/22/24 08:51 Potassium Chloride 10 Meq Tabcr PO 08/19/24 08:59 10 meq QAM CHLOÉ Administration Primidone 25 mg 07/19/24 21:00 07/22/24 08:53 Primidone 50 Mg Tab PO 08/18/24 20:59 25 mg BID CHLOÉ Administration Trazodone HCl 150 mg 07/19/24 21:00 07/21/24 20:47 Trazodone Hcl 50 Mg Tab PO 08/18/24 20:59 150 mg HS CHLOÉ Administration Vortioxetine 20 mg 07/21/24 21:00 07/21/24 21:10 Vortioxetine Hydrobromide 20 Mg Tab PO 08/20/24 20:59 20 mg HS CHLOÉ Administration Past Medical History Medical History (Updated 07/22/24 @ 08:55 by Georges Queen MD) Encounter for pre-operative examination MDD (major depressive disorder), recurrent episode, severe Nausea & vomiting HLD (hyperlipidemia) HTN (hypertension) Past Family History Family History Other No pertinent family history Past Surgical History Surgical History (Updated 07/22/24 @ 08:54 by Georges Queen MD) History of lumbar surgery History of gastric bypass Social History Smoking Status: Former smoker Do You Dip or Chew Tobacco: No Hx Alcohol Use: No Alcohol type: hard liquor alcohol intake frequency: other Hx Substance Use: Yes substance use type: marijuana Substance Use Type Other:: Medical marijuana Last Used Substance: Days (ago) Last Used Substance Other:: 7 days ago. Vape. Physical Exam Vital Signs Last Vital Signs Temp 36.8 C 07/22/24 07:26 Pulse 71 07/22/24 07:26 Resp 17 07/22/24 07:26 BP 148/82 H 07/22/24 07:26 Pulse Ox 97 07/22/24 07:26 O2 Del Method Room Air 07/22/24 07:26 Testing Laboratory Results 07/22/24 06:22 07/22/24 06:22 PT 10.9 Seconds (9.0-12.0) 07/19/24 10:02 INR 1.0 (0.9-1.1) 07/19/24 10:02 Urine Color Yellow 07/19/24 14:32 Urine Appearance Clear (Clear) 07/19/24 14:32 Urine pH 5.5 (4.5-7.5) 07/19/24 14:32 Ur Specific [place] > 1.045 (1.000-1.030) H 07/19/24 14:32 Urine Protein Negative (Negative) 07/19/24 14:32 Urine Glucose (UA) Negative (Negative) 07/19/24 14:32 Urine Ketones 3+ (Negative) H 07/19/24 14:32 Urine Nitrite Negative (Negative) 07/19/24 14:32 Ur Leukocyte Esterase 1+ (Negative) H 07/19/24 14:32 Urine WBC (Auto) 21-50 /hpf (0-5) H 07/19/24 14:32 Urine RBC (Auto) 0-2 /hpf (0-2) 07/19/24 14:32 U Hyaline Cast (Auto) 0-2 /lpf (0-2) 07/19/24 14:32 U Epithel Cells (Auto) 0-2 /hpf (0-2) 07/19/24 14:32 Urine Bacteria (Auto) None Seen (None Seen) 07/19/24 14:32 07/19/24 14:32 Urine Culture - Final Urine,Clean Catch No growth - less than 1,000 colonies/mL. Electrocardiogram Date: 07/19/24 DICTATED BY: Chuy Gee MD Test Reason : Blood Pressure : */* mmHG Vent. Rate : 71 BPM Atrial Rate : 71 BPM P-R Int : 140 ms QRS Dur : 80 ms QT Int : 382 ms P-R-T Axes : 43 14 56 degrees QTcB Int : 415 ms Normal sinus rhythm Normal ECG When compared with ECG of 07-Jul-2024 18:22, No significant change was found Confirmed by Chuy Gee ([id number]) on 07/19/2024 2:07:10 PM
--- NOTE | 2024-07-22 09:48 | History & Physical Bridge Note ---
Date of Service July 22, 2024 History & Physical Bridge Note I have examined the patient, reviewed the History & Physical and in the interval since the performance of the History & Physical I have noted the following changes of clinical significance: no changes noted. she has been NPO. still having nausea with dry heaving. no chest pain, sob. - will plan for EGD for today to further evaluate. Supervising Physician Co-Signing Physician Notes Patient for EGD to evaluate continued symptoms of nausea vomiting. Risks and benefits discussed informed consent obtained
--- NOTE | 2024-07-22 12:44 | Communication Note ---
Date of Service: July 22, 2024 EGD Evidence of gastric surgery probable Michelle-en-Y gastrojejunostomy. Slightly narrowing of the anastomosis and retained food and pill debris in the gastric pouch. We did dilate the anastomosis to 15 mm. Minimal disruption but some. Not recommended to dilate a Michelle-en-Y anastomosis beyond 15 mm. Suggest gastroparesis diet. See if improvement in gastric emptying following dilatation. PPI daily.
--- NOTE | 2024-07-22 12:47 | Hospitalist Progress Note ---
Date of Service July 22, 2024 Assessment & Plan (1) Chronic nausea: Plan: Remote history of gastric bypass Has been complaining of ongoing nausea and vomiting which is worse recently Could be secondary to post gastrectomy syndrome No significant weight loss Appreciate GI input and recommendation Clinically better today and has been tolerating clears and diet will be advanced She continues to have nausea but no vomiting Will have EGD today (2) Post gastrectomy syndrome: (3) Constipation by delayed colonic transit: (4) Generalized anxiety disorder: Plan: Has significant major depressive disorder with recurrent episodes Appreciate psychiatrist input and recommendation Bupropion 200 mg every morning and will DC nightly dose, vortioxetine 20 mg at bedtime, start Abilify 2.5 mg at bedtime and continue trazodone 50 mg at night Does not have any significant anxiety today (5) Nausea & vomiting: (6) History of lumbar surgery: Plan: Recent lumbar spinal surgery at [facility] on 06/19/2024 Has chronic back pain and also had Cervical spinal fusion in the past Pain seems to be under control now Ultrasound did not show any evidence of DVTs (7) MDD (major depressive disorder), recurrent episode, severe: Plan Notes from the prior hospitalist: Patient with longstanding history of nausea, vomiting and postgastrectomy syndrome presents with exacerbation of her chronic nausea with emesis. Patient has been under a fair amount of medical issues recently. Recent back i njury and surgery. Reviewed outpatient psychiatric notations, patient requesting psych consult here. Suspect and concerned that her patient's mental health may be contributing some of her somatic complaints CT scan shows a fair amount of fecal material in the colon. Suspect she is having liquid stools leaking around the solids. She states she cannot tolerate the MiraLAX. Will try some Dulcolax orally Consult GI for patient's chronic nausea, may benefit from endoscopy and further recommendations from GI perspective Monitor electrolytes and renal function in a.m. Encourage activity Maintain liquid diet at this time. Admission and Anticipated Discharge Date Admission Date: July 19, 2024 Subjective 07/21/2024 The patient was seen and examined in medical floor She continues to have nausea and vomiting without any abdominal pain or distention Has been tolerating clears and that will be advanced Noted to have some swelling of the right leg 07/22/2024 The patient was seen and examined in medical floor She continues to have nausea but does not have any abdominal pain or vomiting Denies any other symptoms Review of Systems Review of Systems: All systems reviewed and are unremarkable except as noted below Constitutional: + fatigue; no fever and no chills Gastrointestinal: + nausea and + vomiting; no abdominal pa in Musculoskeletal: no back pain Physical Exam Physical Exam: Lying in bed without any acute distress Constitutional: + ill appearing and average body habitus Eyes: PERRL, conjunctivae normal, anicteric sclerae ENMT: external ear and nose normal, oropharynx normal Neck: trachea midline, no thyromegaly Respiratory: no respiratory distress Auscultation: lungs clear to auscultation bilaterally Cardiovascular: Rate/Rhythm: regular rate and regular rhythm; not tachycardic Heart Sounds: normal S1 and normal S2; no murmur Gastrointestinal (Abdomen): Inspection/Auscultation: normal bowel sounds; abdomen not distended Percussion/Palpation: abdomen soft; abdomen nontender Neurologic: normal touch/pain/proprioception and moves all extremities; no focal motor deficits Lymphatic: no cervical or axillary lymphadenopathy Results & Data Results & Data Vital Signs (Past 12 Hours) Vital Signs Temp Pulse Resp BP Pulse Ox O2 Del Method 07/22/24 10:47 36.8 C 67 16 152/103 H 98 Room Air 07/22/24 07:26 36.8 C 71 17 148/82 H 97 Room Air Laboratory Results Short CBC 07/22/24 Range/Units 06:22 WBC 4.52 L (4.8-10.8) K/ul Hgb 9.4 L (12.0-16.0) g/dl Hct 28.6 L (37.0-47.0) % Plt Count 160 (130-400) K/uL BMP 07/22/24 06:22 Sodium 139 Potassium 3.7 Chloride 108 H Carbon Dioxide 23 BUN 3 L Creatinine 0.68 Glucose 72 Calcium 7.7 L Medications Administered Current Inpatient Medications Acetaminophen (Acetaminophen 325 Mg Tab) 650 mg PO Q4H PRN PRN Reason: pain/fever Stop: 08/18/24 13:31 Al Hydrox/Mg Hydrox/Simethicone (Aluminum/Magnesium Susp 30 Ml Udc) 30 ml PO Q6H PRN PRN Reason: Dyspepsia Stop: 08/18/24 13:31 Aripiprazole (Aripiprazole 5 Mg Tab) 2.5 mg PO HS CHLOÉ Stop: 08/19/24 20:59 Last Admin: 07/21/24 21:10 Dose: 2.5 mg Baclofen (Baclofen 10 Mg Tab) 5 mg PO TID PRN PRN Reason: muscle spasm Stop: 08/18/24 15:15 Last Admin: 07/20/24 13:33 Dose: 5 mg Bisacodyl (Bisacodyl 5 Mg Tabec) 10 mg PO DAILY CHLOÉ Stop: 08/19/24 10:59 Last Admin: 07/22/24 08:52 Dose: Not Given Bupropion HCl (Bupropion Hcl 100 Mg Tablet) 100 mg PO DAILY CHLOÉ Stop: 08/20/24 08:59 Last Admin: 07/22/24 08:55 Dose: 100 mg Enoxaparin Sodium (Enoxaparin Inj 40 Mg/0.4 Ml Syr) 40 mg SQ Q24H CHLOÉ Stop: 08/19/24 13:59 Last Admin: 07/21/24 15:10 Dose: 40 mg Ferrous Sulfate (Ferrous Sulfate 325 Mg Tab) 325 mg PO DAILY CHLOÉ Stop: 08/19/24 08:59 Last Admin: 07/22/24 08:53 Dose: 325 mg Sodium Chloride (Nss) 1,000 mls @ 100 mls/hr IV .Q10H CHLOÉ Stop: 07/22/24 13:44 Last Infusion: 07/22/24 10:30 Dose: 0 mls/hr Lisinopril (Lisinopril 2.5 Mg Tab) 1.25 mg PO DAILY CHLOÉ Stop: 08/19/24 08:59 Last Admin: 07/22/24 08:52 Dose: 1.25 mg Melatonin (Melatonin 3 Mg Tab) 3 mg PO HS PRN PRN Reason: Insomnia Stop: 08/18/24 13:31 Methylnaltrexone [place] (Methylnaltrexone [place] 12 Mg/0.6 Ml Vial) 12 mg SQ Q2D CHLOÉ Stop: 08/18/24 14:59 Last Admin: 07/21/24 15:09 Dose: 12 mg Metoprolol Tartrate (Metoprolol Tartrate 25 Mg Tab) 12.5 mg PO BID CHLOÉ Stop: 08/18/24 20:59 Last Admin: 07/22/24 08:52 Dose: 12.5 mg Multivitamins (Multivitamin Tab) 1 tab PO QAM CHLOÉ Stop: 08/19/24 08:59 Last Admin: 07/22/24 08:52 Dose: 1 tab Ondansetron HCl (Ondansetron Inj 2 Mg/Ml 2 Ml Vial) 4 mg IV Q6H PRN PRN Reason: Nausea Stop: 08/18/24 13:31 Last Admin: 07/22/24 07:22 Dose: 4 mg Oxybutynin Chloride (Oxybutynin Chloride Xl 5 Mg Tabcr) 30 mg PO QAM CHLOÉ Stop: 08/19/24 08:59 Last Admin: 07/22/24 08:52 Dose: 30 mg Oxycodone HCl (Oxycodone Hcl Ir 5 Mg Tab (Immediate Release)) 5 mg PO Q4H PRN PRN Reason: Pain Stop: 08/02/24 15:15 Pantoprazole Sodium (Pantoprazole 40 Mg Tab) 40 mg PO BID CHLOÉ Stop: 08/19/24 12:29 Last Admin: 07/22/24 08:52 Dose: 40 mg Potassium Chloride (Potassium Chloride 10 Meq Tabcr) 10 meq PO QAM CHLOÉ Stop: 08/19/24 08:59 Last Admin: 07/22/24 08:51 Dose: 10 meq Primidone (Primidone 50 Mg Tab) 25 mg PO BID CHLOÉ Stop: 08/18/24 20:59 Last Admin: 07/22/24 08:53 Dose: 25 mg Trazodone HCl (Trazodone Hcl 50 Mg Tab) 150 mg PO HS CHLOÉ Stop: 08/18/24 20:59 Last Admin: 07/21/24 20:47 Dose: 150 mg Vortioxetine (Vortioxetine Hydrobromide 20 Mg Tab) 20 mg PO HS CHLOÉ Stop: 08/20/24 20:59 Last Admin: 07/21/24 21:10 Dose: 20 mg
--- NOTE | 2024-07-22 12:49 | GI REPORT ---
[facility] Patient: KELSIE ROSE : 1960 Sex at : Female Age: 64 Years Procedure: Upper GI endoscopy Date: 07/22/2024 Attending Physician: Lawrence Presley MD Referring MD: Referred Self Indications: - Nausea vomitting Medications: - Monitored Anesthesia Care Complications: - No immediate complications. Estimated Blood Loss: - Estimated blood loss was minimal. Procedure: - The egd scope was introduced through the mouth and advanced to the jejunum. - The upper GI endoscopy was accomplished without difficulty. - The patient tolerated the procedure well. Findings: - The examined esophagus was normal. - Evidence of a Michelle-en-Y anastomosis was found in the gastric fundus. This was characterized by mild stenosis. Retained food and pill debris in the gastric pouch. We placed a pyloric channel balloon with wire in the jejunum. The balloon then was back to straddled the anastomosis. Dilatation was undertaken 1213.5-15. Mild mucosal disruption at 15. No further dilatation beyond this point. No distal obstruction. Impression: - Normal esophagus. - A Michelle-en-Y anastomosis was found, characterized by mild stenosis. - Retained food and pill debris in the gastric pouch. We placed a pyloric channel balloon with wire in the jejunum. The balloon then was back to straddled the anastomosis. Dilatation was undertaken 1213.5-15. Mild mucosal disruption at 15. No further dilatation beyond this point. No distal obstruction. - No specimens collected. - Retained food and pills material and gastric pouch. Some narrowing at the gastric jejunal anastomosis. Dilated to maximum 15 mm. Evaluate for improvement following dilatation. Placed on gastroparesis precautions. Recommendation: Procedure Code(s): - 37400, Esophagogastroduodenoscopy, flexible, transoral; diagnostic, including collection of specimen(s) by brushing or washing, when performed (separate procedure) Diagnosis Code(s): - Z98.84, Bariatric surgery status CPT(R) - 2022 copyright [employer]. All Rights Reserved. The CPT codes, CCI edits and ICD codes generated are intended as suggestions and were generated based on input data. These codes are preliminary and upon windmill technician review may be revised to meet current compliance and payer requirements. The provider is responsible for the final determination of appropriate codes, and modifiers. Lawrence Presley MD This document has been electronically signed. Note Initiated:07/22/2024 Note Completed:07/22/2024 12:48 PM [id number]
--- NOTE | 2024-07-22 12:50 | Anesthesiology Progress Note ---
Date of Service July 22, 2024 Anesthesia Post Procedure Vital Signs Vital Signs: Temp Pulse Resp BP Pulse Ox O2 Del Method 07/22/24 12:46 77 16 113/70 96 Room Air 07/22/24 10:47 36.8 C 67 16 152/103 H 98 Room Air 07/22/24 07:26 36.8 C 71 17 148/82 H 97 Room Air 07/21/24 19:51 36.8 C 77 18 149/78 H 99 Room Air 07/21/24 14:40 37.0 C 77 18 127/81 100 Room Air Pain Intensity Back: Pain Intensity: 4 Transfer of Care Handoff Completed per policy Notes Mental Status: alert / awake / arousable and participated in evaluation Patient Amnestic to Procedure: Yes Nausea / Vomiting: adequately controlled Pain: adequately controlled Airway Patency, RR, SpO2: stable & adequate BP & HR: stable & adequate Hydration State: stable & adequate Anesthetic Complications: no major complications apparent and Pt Satisfied with anesthetic care
[2024-07-22] MEDS: PROPOFOL IV EMULSION 10 MG/ML 20 ML VIAL IV ONE (13:39)
[2024-07-22] MEDS: LIDOCAINE 2% 2 ML VIAL/AMP(20MG/ML) INFIL ONE (13:39)
[2024-07-22] MEDS: SODIUM CHLORIDE 0.65% NA SOLN 45 ML (OCEAN) ONE (15:44)
--- NOTE | 2024-07-23 10:37 | Gastroenterology Progress Note ---
Date of Service July 23, 2024 Assessment & Plan (1) Nausea: Plan - Continue with protonix 40mg bid. - continue with zofran 4mg IV q 6 hours as needed for nausea. - Will discuss case further with Dr. Presley, further recommendations to follow. Admission and Anticipated Discharge Date Admission Date: July 19, 2024 Supervising Physician Co-Signing Physician Notes EGD did show retained material in the gastric pouch. There was mild narrowing at the anastomosis. Suspect a component of delayed gastric emptying and may be some component of stenosis. She was dilated to the maximum recommended 15 mm at the gastric anastomosis. Her recent use of narcotics may have aggravated gastric emptying. She has chronic nausea. At this point do not plan any further inpatient investigations. I think she can be discharged with antinauseants PPI. She can use nutritional supplements as required this should empty from her pouch faster. These can include boost Ensure Sustacal Harrison instant breakfast ice cream. We gave her a diet for gastroparesis precautions. GI signs off reconsult. Subjective Patient has ongoing nausea. no emesis. she tells me she is frustrated because she does not feel any different. no other GI concerns. EGD 07/22/24 - Normal esophagus. - A Michelle-en-Y anastomosis was found, characterized by mild stenosis. - Retained food and pill debris in the gastric pouch. We placed a pyloric channel balloon with wire in the jejunum. The balloon then was back to straddled the anastomosis. Dilatation was undertaken 1213.5-15. Mild mucosal disruption at 15. No further dilatation beyond this point. No distal obstruction. - No specimens collected. - Retained food and pills material and gastric pouch. Some narrowing at the gastric jejunal anastomosis. Dilated to maximum 15 mm. Evaluate for improvement following dilatation. Placed on gastroparesis precautions. Review of Systems Review of Systems: All systems reviewed & are unremarkable except as noted in HPI & below Physical Exam Constitutional: WD/WN, vitals as above Respiratory: normal respiratory effort, lungs clear to auscultation Cardiovascular: Rate/Rhythm: regular rate and regular rhythm Gastrointestinal (Abdomen): normal bowel sounds, soft, nontender, no hepatosplenomegaly Psychiatric: Orientation: alert and oriented x 3 Results & Data Results & Data Vital Signs (Past 12 Hours) Vital Signs Temp Pulse Resp BP Pulse Ox O2 Del Method 07/23/24 07:25 Room Air 07/23/24 07:14 98.4 F 76 16 166/92 H 97 Room Air Coding Level of Care Code 87330 SUB INP/OBS CARE 03/28MIN Diagnoses Nausea R11.0
--- NOTE | 2024-07-23 13:22 | Hospitalist Progress Note ---
Date of Service July 23, 2024 Assessment & Plan (1) Chronic nausea: Plan: Remote history of gastric bypass Has been complaining of ongoing nausea and vomiting which is worse recently Could be secondary to post gastrectomy syndrome No significant weight loss Appreciate GI input and recommendation Clinically better today and has been tolerating clears and diet will be advanced She continues to have nausea but no vomiting Status post EGD on 07/22/2024- minimal esophageal stricture noted and there was dilated no other significant findings Has been getting Protonix twice daily and diet has been advanced Still continues to have nausea and not yet ready to be discharged (2) Post gastrectomy syndrome: (3) Constipation by delayed colonic transit: (4) Generalized anxiety disorder: Plan: Has significant major depressive disorder with recurrent episodes Appreciate psychiatrist input and recommendation Bupropion 200 mg every morning and will DC nightly dose, vortioxetine 20 mg at bedtime, start Abilify 2.5 mg at bedtime and continue trazodone 50 mg at night Does not have any significant anxiety today (5) Nausea & vomiting: (6) History of lumbar surgery: Plan: Recent lumbar spinal surgery at [facility] on 06/19/2024 Has chronic back pain and also had Cervical spinal fusion in the past Pain seems to be under control now Ultrasound did not show any evidence of DVTs (7) MDD (major depressive disorder), recurrent episode, severe: Plan Notes from the prior hospitalist: Patient with longstanding history of nausea, vomiting and postgastrectomy syndrome presents with exacerbation of her chronic nausea with emesis. Patient has been under a fair amount of medical issues recently. Recent back injury and surgery. Reviewed outpatient psychiatric notations, patient requesting psych consult here. Suspect and concerned that her patient's mental health may be contrib uting some of her somatic complaints CT scan shows a fair amount of fecal material in the colon. Suspect she is having liquid stools leaking around the solids. She states she cannot tolerate the MiraLAX. Will try some Dulcolax orally Consult GI for patient's chronic nausea, may benefit from endoscopy and further recommendations from GI perspective Monitor electrolytes and renal function in a.m. Encourage activity Maintain liquid diet at this time. Admission and Anticipated Discharge Date Admission Date: July 19, 2024 Subjective 07/21/2024 The patient was seen and examined in medical floor She continues to have nausea and vomiting without any abdominal pain or dist ention Has been tolerating clears and that will be advanced Noted to have some swelling of the right leg 07/22/2024 The patient was seen and examined in medical floor She continues to have nausea but does not have any abdominal pain or vomiting Denies any other symptoms 07/23/2024 The patient was seen and examined in medical floor She is status post EGD and esophageal dilatation Continues to have nausea Review of Systems Review of Systems: All systems reviewed and are unremarkable except as noted below Physical Exam Physical Exam: Lying in bed without any acute distress Constitutional: + ill appearing and average body habitus Eyes: PERRL, conjunctivae normal, anicteric sclerae ENMT: external ear and nose normal, oropharynx normal Neck: trachea midline, no thyromegaly Respiratory: no respiratory distress Auscultation: lungs clear to auscultation bilaterally Cardiovascular: Rate/Rhythm: regular rate and regular rhythm; not tachycardic Heart Sounds: normal S1 and normal S2; no murmur Gastrointestinal (Abdomen): Inspection/Auscultation: normal bowel sounds; abdomen not distended Percussion/Palpation: abdomen soft; abdomen nontender Neurologic: normal touch/pain/proprioception and moves all extremities; no focal motor deficits Lymphatic: no cervical or axillary lymphadenopathy Results & Data Results & Data Vital Signs (Past 12 Hours) Vital Signs Temp Pulse Resp BP Pulse Ox O2 Del Method 07/23/24 07:25 Room Air 07/23/24 07:14 36.9 C 76 16 166/92 H 97 Room Air Medications Administered Current Inpatient Medications Acetaminophen (Acetaminophen 325 Mg Tab) 650 mg PO Q4H PRN PRN Reason: pain/fever Stop: 08/18/24 13:31 Al Hydrox/Mg Hydrox/Simethicone (Aluminum/Magnesium Susp 30 Ml Udc) 30 ml PO Q6H PRN PRN Reason: Dyspepsia Stop: 08/18/24 13:31 Aripiprazole (Aripiprazole 5 Mg Tab) 2.5 mg PO HS CHLOÉ Stop: 08/19/24 20:59 Last Admin: 07/22/24 20:28 Dose: 2.5 mg Baclofen (Baclofen 10 Mg Tab) 5 mg PO TID PRN PRN Reason: muscle spasm Stop: 08/18/24 15:15 Last Admin: 07/20/24 13:33 Dose: 5 mg Bisacodyl (Bisacodyl 5 Mg Tabec) 10 mg PO DAILY CHLOÉ Stop: 08/19/24 10:59 Last Admin: 07/23/24 09:11 Dose: 10 mg Bupropion HCl (Bupropion Hcl 100 Mg Tablet) 100 mg PO DAILY CHLOÉ Stop: 08/20/24 08:59 Last Admin: 07/23/24 09:06 Dose: 100 mg Enoxaparin Sodium (Enoxaparin Inj 40 Mg/0.4 Ml Syr) 40 mg SQ Q24H CHLOÉ Stop: 08/19/24 13:59 Last Admin: 07/22/24 15:32 Dose: 40 mg Ferrous Sulfate (Ferrous Sulfate 325 Mg Tab) 325 mg PO DAILY CHLOÉ Stop: 08/19/24 08:59 Last Admin: 07/23/24 09:05 Dose: 325 mg Lisinopril (Lisinopril 2.5 Mg Tab) 1.25 mg PO DAILY CHLOÉ Stop: 08/19/24 08:59 Last Admin: 07/23/24 09:05 Dose: 1.25 mg Melatonin (Melatonin 3 Mg Tab) 3 mg PO HS PRN PRN Reason: Insomnia Stop: 08/18/24 13:31 Methylnaltrexone [place] (Methylnaltrexone [place] 12 Mg/0.6 Ml Vial) 12 mg SQ Q2D CHLOÉ Stop: 08/18/24 14:59 Last Admin: 07/21/24 15:09 Dose: 12 mg Metoprolol Tartrate (Metoprolol Tartrate 25 Mg Tab) 12.5 mg PO BID CHLOÉ Stop: 08/18/24 20:59 Last Admin: 07/23/24 09:05 Dose: 12.5 mg Multivitamins (Multivitamin Tab) 1 tab PO QAM CHLOÉ Stop: 08/19/24 08:59 Last Admin: 07/23/24 09:05 Dose: 1 tab Ondansetron HCl (Ondansetron Inj 2 Mg/Ml 2 Ml Vial) 4 mg IV Q6H PRN PRN Reason: Nausea Stop: 08/18/24 13:31 Last Admin: 07/23/24 07:27 Dose: 4 mg Oxybutynin Chloride (Oxybutynin Chloride Xl 5 Mg Tabcr) 30 mg PO QAM [facility] Stop: 08/19/24 08:59 Last Admin: 07/23/24 09:06 Dose: 30 mg Oxycodone HCl (Oxycodone Hcl Ir 5 Mg Tab (Immediate Release)) 5 mg PO Q4H PRN PRN Reason: Pain Stop: 08/02/24 15:15 Pantoprazole Sodium (Pantoprazole 40 Mg Tab) 40 mg PO BID CHLOÉ Stop: 08/19/24 12:29 Last Admin: 07/23/24 09:06 Dose: 40 mg Potassium Chloride (Potassium Chloride 10 Meq Tabcr) 10 meq PO QAM CHLOÉ Stop: 08/19/24 08:59 Last Admin: 07/23/24 09:11 Dose: 10 meq Primidone (Primidone 50 Mg Tab) 25 mg PO BID CHLOÉ Stop: 08/18/24 20:59 Last Admin: 07/23/24 09:06 Dose: 25 mg Trazodone HCl (Trazodone Hcl 50 Mg Tab) 150 mg PO HS CHLOÉ Stop: 08/18/24 20:59 Last Admin: 07/22/24 21:04 Dose: 150 mg Vortioxetine (Vortioxetine Hydrobromide 20 Mg Tab) 20 mg PO CHLOÉ Stop: 08/20/24 20:59 Last Admin: 07/22/24 20:28 Dose: 20 mg
[2024-07-24 07:41] VITALS: PULSE 71; RESP 17; TEMP 97.9; O2SAT 98
--- NOTE | 2024-07-24 11:01 | Hospitalist Progress Note ---
Date of Service July 24, 2024 Assessment & Plan (1) Chronic nausea: Plan: Remote history of gastric bypass Has been complaining of ongoing nausea and vomiting which is worse recently Could be secondary to post gastrectomy syndrome No significant weight loss Appreciate GI input and recommendation Clinically better today and has been tolerating clears and diet will be advanced She continues to have nausea but no vomiting Status post EGD on 07/22/2024- minimal esophageal stricture noted and there was dilated no other significant findings Has been getting Protonix twice daily and diet has been advanced Still continues to have nausea and not yet ready to be discharged Has been stable with occasional nausea and denies any other significant symptoms No problems swallowing and does not have any diarrhea and no constipation She will be discharged home this afternoon (2) Post gastrectomy syndrome: (3) Constipation by delayed colonic transit: (4) Generalized anxiety disorder: Plan: Has significant major depressive disorder with recurrent episodes Appreciate psychiatrist input and recommendation Bupropion 200 mg every morning and will DC nightly dose, vortioxetine 20 mg at bedtime, start Abilify 2.5 mg at bedtime and continue trazodone 50 mg at night Does not have any significant anxiety today (5) Nausea & vomiting: (6) History of lumbar surgery: Plan: Recent lumbar spinal surgery at [facility] on 06/19/2024 Has chronic back pain and also had Cervical spinal fusion in the past Pain seems to be under control now Ultrasound did not show any evidence of DVTs (7) MDD (major depressive disorder), recurrent episode, severe: Plan Notes from the prior hospitalist: Patient with longstanding history of nausea, vomiting and postgastrectomy syndrome presents with exacerbation of her chronic nausea with emesis. Patient has been under a fair amount of medical issues recently. Recent back injury and surgery. Reviewed outpatient psychiatric notations, patient requesting psych consult here. Suspect and concerned that her patient's mental health may be contribut ing some of her somatic complaints CT scan shows a fair amount of fecal material in the colon. Suspect she is having liquid stools leaking around the solids. She states she cannot tolerate the MiraLAX. Will try some Dulcolax orally Consult GI for patient's chronic nausea, may benefit from endoscopy and further recommendations from GI perspective Monitor electrolytes and renal function in a.m. Encourage activity Maintain liquid diet at this time. Admission and Anticipated Discharge Date Admission Date: July 19, 2024 Subjective 07/21/2024 The patient was seen and examined in medical floor She continues to have nausea and vomiting without any abdominal pain or disten tion Has been tolerating clears and that will be advanced Noted to have some swelling of the right leg 07/22/2024 The patient was seen and examined in medical floor She continues to have nausea but does not have any abdominal pain or vomiting Denies any other symptoms 07/23/2024 The patient was seen and examined in medical floor She is status post EGD and esophageal dilatation Continues to have nausea 07/24/2024 The patient was seen and examined in medical floor She is still complains to have ongoing nausea but no vomiting Denies any problem with swallowing following the EGD and esophageal dilatation She wants to go home this afternoon and will be discharged Review of Systems Review of Systems: All systems reviewed and are unremarkable except as noted below Physical Exam Physical Exam: Lying in bed without any acute distress Constitutional: + ill appearing and average body habitus Eyes: PERRL, conjunctivae normal, anicteric sclerae ENMT: external ear and nose normal, oropharynx normal Neck: trachea midline, no thyromegaly Respiratory: no respiratory distress Auscultation: lungs clear to auscultation bilaterally Cardiovascular: Rate/Rhythm: regular rate and regular rhythm; not tachycardic Heart Sounds: normal S1 and normal S2; no murmur Gastrointestinal (Abdomen): Inspection/Auscultation: normal bowel sounds; abdomen not distended Percussion/Palpation: abdomen soft; abdomen nontender Neurologic: normal touch/pain/proprioception and moves all extremities; no focal motor deficits Lymphatic: no cervical or axillary lymphadenopathy Results & Data Results & Data Vital Signs (Past 12 Hours) Vital Signs Temp Pulse Resp BP Pulse Ox O2 Del Method 07/24/24 07:40 36.6 C 71 17 153/92 H 98 Room Air Medications Administered Current Inpatient Medications Acetaminophen (Acetaminophen 325 Mg Tab) 650 mg PO Q4H PRN PRN Reason: pain/fever Stop: 08/18/24 13:31 Al Hydrox/Mg Hydrox/Simethicone (Aluminum/Magnesium Susp 30 Ml Udc) 30 ml PO Q6H PRN PRN Reason: Dyspepsia Stop: 08/18/24 13:31 Aripiprazole (Aripiprazole 5 Mg Tab) 2.5 mg PO HS CHLOÉ Stop: 08/19/24 20:59 Last Admin: 07/23/24 21:39 Dose: 2.5 mg Baclofen (Baclofen 10 Mg Tab) 5 mg PO TID PRN PRN Reason: muscle spasm Stop: 08/18/24 15:15 Last Admin: 07/20/24 13:33 Dose: 5 mg Bisacodyl (Bisacodyl 5 Mg Tabec) 10 mg PO DAILY CHLOÉ Stop: 08/19/24 10:59 Last Admin: 07/24/24 08:03 Dose: 10 mg Bupropion HCl (Bupropion Hcl 100 Mg Tablet) 100 mg PO DAILY CHLOÉ Stop: 08/20/24 08:59 Last Admin: 07/24/24 08:04 Dose: 100 mg Enoxaparin Sodium (Enoxaparin Inj 40 Mg/0.4 Ml Syr) 40 mg SQ Q24H CHLOÉ Stop: 08/19/24 13:59 Last Admin: 07/23/24 13:32 Dose: Not Given Ferrous Sulfate (Ferrous Sulfate 325 Mg Tab) 325 mg PO DAILY CHLOÉ Stop: 08/19/24 08:59 Last Admin: 07/24/24 08:04 Dose: 325 mg Lisinopril (Lisinopril 2.5 Mg Tab) 1.25 mg PO DAILY CHLOÉ Stop: 08/19/24 08:59 Last Admin: 07/24/24 08:03 Dose: 1.25 mg Melatonin (Melatonin 3 Mg Tab) 3 mg PO HS PRN PRN Reason: Insomnia Stop: 08/18/24 13:31 Methylnaltrexone [place] (Methylnaltrexone [place] 12 Mg/0.6 Ml Vial) 12 mg SQ Q2D CHLOÉ Stop: 08/18/24 14:59 Last Admin: 07/23/24 14:05 Dose: Not Given Metoprolol Tartrate (Metoprolol Tartrate 25 Mg Tab) 12.5 mg PO BID CHLOÉ Stop: 08/18/24 20:59 Last Admin: 07/24/24 08:04 Dose: 12.5 mg Multivitamins (Multivitamin Tab) 1 tab PO QAM CHLOÉ Stop: 08/19/24 08:59 Last Admin: 07/24/24 08:03 Dose: 1 tab Ondansetron HCl (Ondansetron Inj 2 Mg/Ml 2 Ml Vial) 4 mg IV Q6H PRN PRN Reason: Nausea Stop: 08/18/24 13:31 Last Admin: 07/24/24 08:02 Dose: 4 mg Oxybutynin Chloride (Oxybutynin Chloride Xl 5 Mg Tabcr) 30 mg PO QAM [facility] Stop: 08/19/24 08:59 Last Admin: 07/24/24 08:03 Dose: 30 mg Oxycodone HCl (Oxycodone Hcl Ir 5 Mg Tab (Immediate Release)) 5 mg PO Q4H PRN PRN Reason: Pain Stop: 08/02/24 15:15 Pantoprazole Sodium (Pantoprazole 40 Mg Tab) 40 mg PO BID CHLOÉ Stop: 08/19/24 12:29 Last Admin: 07/24/24 08:03 Dose: 40 mg Potassium Chloride (Potassium Chloride 10 Meq Tabcr) 10 meq PO QAM CHLOÉ Stop: 08/19/24 08:59 Last Admin: 07/24/24 08:02 Dose: 10 meq Primidone (Primidone 50 Mg Tab) 25 mg PO BID CHLOÉ Stop: 08/18/24 20:59 Last Admin: 07/24/24 08:03 Dose: 25 mg Trazodone HCl (Trazodone Hcl 50 Mg Tab) 150 mg PO CHLOÉ Stop: 08/18/24 20:59 Last Admin: 07/23/24 21:39 Dose: 150 mg Vortioxetine (Vortioxetine Hydrobromide 20 Mg Tab) 20 mg PO [facility] Stop: 08/20/24 20:59 Last Admin: 07/23/24 21:39 Dose: 20 mg
[2024-07-24] MEDS: ONDANSETRON 4 MG OD TAB PO STA (12:28)
[2024-07-24 13:29] VITALS: BP 160/96
--- NOTE | 2024-07-25 07:23 | Discharge Summary ---
Date of Service July 25, 2024 Admission HPI Per Admitting Provider 64F pmh HTN, HLD, chronic rhinitis, post gastric surgery syndrome, B12 malabsorption s/p gastric bypass, recurrent N/V on chronic Zofran PRN, lumbar DDD, cervical DDD s/p cervical spinal fusion, lumbar spinal stenosis, memory changes, depression, CKD stage III, MEYER, KATE and GERD who presents with refractory n/v. Of note patient recently evaluated and admitted here for similar concerns, at that time were thought to be related to significant low back pain for which she was given baclofen and discharged. At last admission PT/OT evaluated the patient but she was denied SNF admission due to level of function. Since discharge about 3 weeks ago patient states she continued to have intermittent n/v until about 1 week when her symptoms progressed and worsened, becoming unrelenting. In that time period she has become increasingly weak with significantly decreased urinary output as a result. States her low back pain is controlled. Also with significant weakness in the last week. No obvious precipitating events in regards to her n/v, including other sickness, travel, exposures. Admission Exam Per Admitting Provider Constitutional: WD/WN, vitals as above Respiratory: normal respiratory effort, lungs clear to auscultation Cardiovascular: RRR, no murmur, no edema Gastrointestinal (Abdomen): normal bowel sounds, soft, nontender, no hepatosplenomegaly Principal Diagnosis Chronic nausea, status post EGD and dilatation Discharge Exam Lying in bed without any acute distress Constitutional + ill appearing and average body habitus Eyes PERRL, conjunctivae normal, anicteric sclerae ENMT external ear and nose normal, oropharynx normal Neck trachea midline, no thyromegaly Respiratory no respiratory distress Auscultation: lungs clear to auscultation bilaterally Cardiovascular Rate/Rhythm: regular rate and regular rhythm; not tachycardic Heart Sounds: normal S1 and normal S2; no murmur Gastrointestinal (Abdomen) Inspection/Auscultation: normal bowel sounds; abdomen not distended Percussion/Palpation: abdomen soft; abdomen nontender Neurologic normal touch/pain/proprioception and moves all extremities; no focal motor deficits Lymphatic no cervical or axillary lymphadenopathy Discharge Data Allergies Allergy/AdvReac Type Severity Reaction Status Date / Time 2-octyl cyanoacrylate Allergy Intermediate DERMABOND-R Verified 07/22/24 10:50 [octyl 2-cyanoacrylate] HODA Penicillins Allergy Unknown Unknown Verified 07/22/24 10:50 Sulfa (Sulfonamide Allergy Unknown Unknown Verified 07/22/24 10:50 Antibiotics) NSAIDS (Non-Steroidal AdvReac Intermediate due to Verified 07/22/24 10:50 Anti-Inflamma gastric bypass Consultations 07/19/24 13:06 ED Decision to Admit Stat 07/20/24 10:46 Consult Gastroenterology Routine Consult Psychiatry Routine Procedures Performed Operation Date: 07/22/24 16:30 Actual Procedures p EGD Dilatation - Lawrence Presley MD Ordered Studies 07/19/24 11:10 CT Abd and Pelvis [CT abd pelvis IV con only] Stat 07/21/24 11:05 US leg [US venous doppler LE BI] Routine Hospital Course (1) Chronic nausea: Remote history of gastric bypass Has been complaining of ongoing nausea and vomiting which is worse recently Could be secondary to post gastrectomy syndrome No significant weight loss Appreciate GI input and recommendation Clinically better today and has been tolerating clears and diet will be advanced She continues to have nausea but no vomiting Status post EGD on 07/22/2024- minimal esophageal stricture noted and there was dilated no other significant findings Has been getting Protonix twice daily and diet has been advanced Still continues to have nausea and not yet ready to be discharged Has been stable with occasional nausea and denies any other significant symptoms No problems swallowing and does not have any diarrhea and no constipation She will be discharged home this afternoon (2) Post gastrectomy syndrome: (3) Constipation by delayed colonic transit: (4) Generalized anxiety disorder: Has significant major depressive disorder with recurrent episodes Appreciate psychiatrist input and recommendation Bupropion 200 mg every morning and will DC nightly dose, vortioxetine 20 mg at bedtime, start Abilify 2.5 mg at bedtime and continue trazodone 50 mg at night Does not have any significant anxiety today (5) Nausea & vomiting: (6) History of lumbar surgery: Recent lumbar spinal surgery at [place] on 06/19/2024 Has chronic back pain and also had Cervical spinal fusion in the past Pain seems to be under control now Ultrasound did not show any evidence of DVTs (7) MDD (major depressive disorder), recurrent episode, severe: Plan Notes from the prior hospitalist: Patient with longstanding history of nausea, vomiting and postgastrectomy syndrome presents with exacerbation of her chronic nausea with emesis. Patient has been under a fair amount of medical issues recently. Recent back injury and surgery. Reviewed outpatient psychiatric notations, patient requesting psych consult here. Suspect and concerned that her patient's mental health may be contributing some of her somatic complaints CT scan shows a fair amount of fecal material in the colon. Suspect she is having liquid stools leaking around the solids. She states she cannot tolerate the MiraLAX. Will try some Dulcolax orally Consult GI for patient's chronic nausea, may benefit from endoscopy and further recommendations from GI perspective Monitor electrolytes and renal function in a.m. Encourage activity Maintain liquid diet at this time. Total Time Total Time Spent Total Time Spent (In Minutes): 35 Minutes Discharge Plan Discharge Items Patient Disposition: Home - Home Health Services Reason For Visit: N/V Discharge Diagnosis: Chronic nausea, status post EGD and dilatation Condition on Discharge: Fair Activity: Resume your previous activity Non-emergency contact: Primary Care Provider Call non-emergency contact if: you have any medication questions and your symptoms worsen Follow-up/Referrals: Elida Lance DO [Primary Care Provider] - 07/31/24 10:30 am (Date & Time 07/31/2024 10:30 AM Provider: Elida Lance DO [facility] ) Diet: Low Fiber and Low Fat Addtl Attending Provider Instructions: Please take precautions to avoid falls Try to take small amounts of food and for multiple times Continue with the symptomatic antinauseous medication Please keep appointments with your healthcare providers Pending Studies at Discharge: No Stand-Alone Forms: My [facility], Smoking Cessation Medications and DC Order Prescriptions: New pantoprazole 40 mg Tablet,Delayed Release (Dr/Ec) 40 mg PO BID Qty: 60 0RF aripiprazole [Abilify] 5 mg Tablet 2.5 mg PO HS Qty: 15 0RF Continued multivitamin Tablet 1 tab PO QAM potassium chloride 10 mEq Tablet Extended Release 10 meq PO QAM primidone 50 mg tablet 25 mg PO BID ferrous sulfate [Iron (ferrous sulfate)] 325 mg (65 mg iron) Tablet 325 mg PO DAILY calcium citrate-vitamin D3 250 mg-5 mcg (200 unit) Tablet 2 tab PO TID oxybutynin chloride 15 mg tablet extended release 24hr 30 mg PO QAM alendronate 70 mg tablet 70 mg PO WK Rx Instructions: Saturday bupropion HCl 100 mg tablet 100 mg PO BID metoprolol tartrate 25 mg tablet 12.5 mg PO BID Azo Cranberry 250 mg Tablet,Chewable 250 mg PO QAM baclofen 10 mg Tablet 5 mg PO TID PRN (Reason: muscle spasm) Qty: 14 0RF ondansetron 4 mg tablet,disintegrating 4 mg translingual Q8H PRN (Reason: NAUSEA/VOMITING) oxycodone 5 mg tablet 5 mg PO Q4H PRN (Reason: Pain) trazodone 150 mg tablet 150 mg PO HS lisinopril 2.5 mg tablet 1.25 mg PO DAILY Trintellix 20 mg tablet 20 mg PO QAM Discharge Orders: Discharge Order (Routine); Ordered 07/24/24 Ordered By: Aaron Berumen Admission Data Admit Date/Time: 07/19/24 13:32 Attending Provider: Aaron Berumen Admit Provider: Fabrizio Quiñones Primary Care Provider: Elida Lance Other Providers: Fabrizio Quiñones; [facility]; Lawrence Presley; Olesya Trujillo; Joseph Dominique.; Harmony Roland; Sue Correia; Kulwinder Tam; Ewelina De Paz; Mendez Jones Other Interventions: Discharge Summary Assessment (RN) Last Done: 07/24/24 13:27
== END 2024-07-24 15:03 | disposition home health service (06) | DRG 394 ==
LOC: ED 09:51 → 3N 13:32 → SUATTDRO 13:32 → 3N 14:52